=== PATIENT | male | born 1985 | race Caucasian/White ===

== ENCOUNTER 2016-12-23 09:21 | Inpatient (IN) | payer BC, MEDICARE, OTHER ==
[2016-12-23] MEDS ORDERED: SODIUM CHLORIDE 0.9% 1,000 ML IV ONE (10:04)
[2016-12-23] MEDS ORDERED: LEVOFLOXACIN 750MG-D5W PMX 750 MG in DEXTROSE/WATER 1 150ML.BAG IVPB STA (10:04)
[2016-12-23] MEDS ORDERED: SALINE IVPB STA (10:06)
[2016-12-23] MEDS ORDERED: ACETAMINOPHEN IVPB STA (10:06)
[2016-12-23] MEDS ORDERED: IPRATROPIUM-ALBUTEROL 3 ML NEB INHALATION STA (10:07)
[2016-12-23] MEDS ORDERED: IBUPROFEN IV 500 MG in SODIUM CHLORIDE 0.9% 250 ML IV STA (10:09)
--- NOTE | 2016-12-23 10:20 | ED ---
General Adult HPI - General Chief complaint: Fever Stated complaint: fever Time Seen by Provider: 12/23/16 09:25 Source: family, RN notes reviewed Mode of arrival: wheelchair Limitations: language barrier, altered mental status, physical limitation - History of Present Illness Initial comments: This is a 31-year-old male who presents emergency Department with his mother. 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 Patient comes in today because he started spiking a fever on Thursday and since then he developed a cough that sounds very wet according to family. Patient did not have any symptoms on Thursday and when Thursday fever came they thought it was attributable to what the mom calls brain fevers from his injury which occasionally he will get. They have not noticed any rashes patient has not been vomiting or having any diarrhea. They do notice today that he is having some difficulty breathing and breathing very rapidly. Patient is unable to give any history. - Related Data Home Medications Medication Instructions Recorded Confirmed Cholecalciferol [Vitamin D3] 1,000 unit PO DAILY 12/23/16 12/23/16 Divalproex Sprinkle [Depakote 750 mg PO BID-W/MEALS 12/23/16 12/23/16 Sprinkle] LORazepam [Ativan] 1.5 mg PO BID 12/23/16 12/23/16 Topiramate [Topamax] 30 mg PO BID-W/MEALS 12/23/16 12/23/16 Allergies Allergy/AdvReac Type Severity Reaction Status Date / Time No Known Allergies Allergy Verified 12/23/16 10:12 Review of Systems ROS Statement: Those systems with pertinent positive or pertinent negative responses have been documented in the HPI. ROS Other: All systems not noted in ROS Statement are negative. Past Medical History Additional Past Medical History / Comment(s): viral meningitis, physical and mentally impaired, blind History of Any Multi-Drug Resistant Organisms: None Reported Past Surgical History: No Surgical Hx Reported Past Psychological History: No Psychological Hx Reported Smoking Status: Never smoker Past Alcohol Use History: None Reported Past Drug Use History: None Reported General Exam - General Exam Comments Initial Comments: GENERAL: Patient is well-developed and well-nourished. Patient is nontoxic and well- hydrated and is in moderate distress. ENT: Neck is soft and supple. No significant lymphadenopathy is noted. EYES: The sclera were anicteric and conjunctiva were pink and moist. PULMONARY: Patient sounds wet throughout but a lot of this sound appears to be coming from the upper airways. CARDIOVASCULAR: Patient is tachycardic at about 150 beats a minute ABDOMEN: Soft and nontender with normal bowel sounds. SKIN: Skin is clear with no lesions or rashes and otherwise unremarkable. NEUROLOGIC: According to mom he appears at his neurologic baseline which is alert but not oriented at all unable to speak is MUSCULOSKELETAL: No rashes are noted on his extremities there is no erythema or swelling in his extremities. Unable to assess strength or motion of his extremities because he does not follow any commands LYMPHATICS: No significant lymphadenopathy is noted PSYCHIATRIC: Unable to assess secondary to his poor mental status which happens to be at its baseline per mom Limitations: language barrier, altered mental status, physical limitation Course Vital Signs 12/23/16 12/23/16 12/23/16 09:29 10:05 10:47 Temperature 101.5 F H Pulse Rate 156 H 139 H 148 H Respiratory 26 H Rate Blood Pressure 138/62 O2 Sat by Pulse 89 L 97 Oximetry 12/23/16 12/23/16 12/23/16 10:48 10:58 11:32 Temperature Pulse Rate 150 H 150 H 134 H Respiratory 22 28 H Rate Blood Pressure 119/78 85/42 O2 Sat by Pulse 97 Oximetry 12/23/16 12/23/16 12/23/16 11:43 11:50 12:05 Temperature Pulse Rate 132 H 136 H 132 H Respiratory 28 H 28 H Rate Blood Pressure 81/50 104/63 96/53 O2 Sat by Pulse 98 96 99 Oximetry 12/23/16 12/23/16 12/23/16 12:20 12:34 12:35 Temperature 100.4 F H Pulse Rate 132 H 142 H Respiratory Rate Blood Pressure 106/59 82/48 O2 Sat by Pulse 98 Oximetry 12/23/16 12/23/16 12/23/16 13:05 13:20 13:35 Temperature Pulse Rate 124 H 120 H 124 H Respiratory Rate Blood Pressure 80/49 75/40 69/36 O2 Sat by Pulse 95 98 94 L Oximetry 12/23/16 13:40 Temperature Pulse Rate 125 H Respiratory Rate Blood Pressure 80/51 O2 Sat by Pulse Oximetry Procedures - Sepsis Sepsis Focused Exam #1 Sepsis Focused Exam Date: 12/23/16 Sepsis Focused Exam Time: 13:58 Sepsis Focused Exam Complete: Yes Vital Signs & RN Notes Reviewed: Yes Capillary Refill: < 2 Seconds: Fingers Peripheral Pulses: Strong: Radial (R) Skin Color: Flushed Respiratory Exam: rales Cardiovascular Exam: tachycardia Medical Decision Making - Medical Decision Making EKG shows sinus tachycardia at 136 bpm [place] interval is 144 QRS duration 70 QT interval 262 QTC is 394. Patient's EKG shows no ST segment patient present to abnormalities are noted. Patient's lack he has came back 4.7 I gave the patient 2 L of fluid IV patient also had an elevated d-dimer psychotic CAT scan the CAT scan confirmed a upper and lower lobe pneumonia on the left. I started the patient on Levaquin and I gave the patient him a fluid emergency department. Patient will be going to the ICU I spoke with Dr. Koch and I spoke with Feliciano - Lab Data Result diagrams: 12/23/16 10:01 12/23/16 10:01 Lab Results 12/23/16 12/23/16 12/23/16 Range/Units 10:01 10:01 10:01 WBC 7.5 (3.8-10.6) k/uL RBC 4.07 L (4.30-5.90) m/uL Hgb 11.6 L (13.0-17.5) gm/dL Hct 36.9 L (39.0-53.0) % MCV 90.8 (80.0-100.0) fL MCH 28.5 (25.0-35.0) pg MCHC 31.4 (31.0-37.0) g/dL RDW 16.5 H (11.5-15.5) % Plt Count 117 L (150-450) k/uL Neutrophils % (Manual) 48.0 % Band Neutrophils % 19.5 % Lymphocytes % (Manual) 16.0 % Monocytes % (Manual) 14.5 % Metamyelocytes % 2.0 % Neutrophils # (Manual) 5.1 (1.3-7.7) k/uL Lymphocytes # (Manual) 1.2 (1.0-4.8) k/uL Monocytes # (Manual) 1.1 H (0-1.0) k/uL Nucleated RBCs 0 (0-0) /100 WBC Manual Slide Review Performed Toxic Granulation Present Hypochromasia Slight Anisocytosis Slight PT (9.0-12.0) sec INR (<1.1) APTT (22.0-30.0) sec D-Dimer (<0.60) mg/L FEU Sodium 146 H (137-145) mmol/L Potassium 4.1 (3.5-5.1) mmol/L Chloride 106 (98-107) mmol/L Carbon Dioxide 19 L (22-30) mmol/L Anion Gap 21 mmol/L BUN 17 (9-20) mg/dL Creatinine 0.80 (0.66-1.25) mg/dL Est GFR (MDRD) Af Amer >60 (>60 ml/min/1.73 sqM) Est GFR (MDRD) Non-Af >60 (>60 ml/min/1.73 sqM) Glucose 100 H (74-99) mg/dL Plasma Lactic Acid Arian 4.7 H* (0.7-2.0) mmol/L Calcium 9.8 (8.4-10.2) mg/dL Total Bilirubin 0.4 (0.2-1.3) mg/dL AST 91 H (17-59) U/L ALT 34 (21-72) U/L Alkaline Phosphatase 61 (38-126) U/L Total Protein 8.0 (6.3-8.2) g/dL Albumin 4.0 (3.5-5.0) g/dL Urine Color Urine Appearance (Clear) Urine pH (5.0-8.0) Ur Specific Ponderosa (1.001-1.035) Urine Protein (Negative) Urine Glucose (UA) (Negative) Urine Ketones (Negative) Urine Blood (Negative) Urine Nitrite (Negative) Urine Bilirubin (Negative) Urine Urobilinogen (<2.0) mg/dL Ur Leukocyte Esterase (Negative) Urine RBC (0-5) /hpf Urine WBC (0-5) /hpf Urine Mucus (None) /hpf Valproic Acid ug/mL Influenza Type A RNA (Not Detectd) Influenza Type B (PCR) (Not Detectd) 12/23/16 12/23/16 12/23/16 Range/Units 10:01 10:32 10:32 WBC (3.8-10.6) k/uL RBC (4.30-5.90) m/uL Hgb (13.0-17.5) gm/dL Hct (39.0-53.0) % MCV (80.0-100.0) fL MCH (25.0-35.0) pg MCHC (31.0-37.0) g/dL RDW (11.5-15.5) % Plt Count (150-450) k/uL Neutrophils % (Manual) % Band Neutrophils % % Lymphocytes % (Manual) % Monocytes % (Manual) % Metamyelocytes % % Neutrophils # (Manual) (1.3-7.7) k/uL Lymphocytes # (Manual) (1.0-4.8) k/uL Monocytes # (Manual) (0-1.0) k/uL Nucleated RBCs (0-0) /100 WBC Manual Slide Review Toxic Granulation Hypochromasia Anisocytosis PT (9.0-12.0) sec INR (<1.1) APTT (22.0-30.0) sec D-Dimer (<0.60) mg/L FEU Sodium (137-145) mmol/L Potassium (3.5-5.1) mmol/L Chloride (98-107) mmol/L Carbon Dioxide (22-30) mmol/L Anion Gap mmol/L BUN (9-20) mg/dL Creatinine (0.66-1.25) mg/dL Est GFR (MDRD) Af Amer (>60 ml/min/1.73 sqM) Est GFR (MDRD) Non-Af (>60 ml/min/1.73 sqM) Glucose (74-99) mg/dL Plasma Lactic Acid Arian (0.7-2.0) mmol/L Calcium (8.4-10.2) mg/dL Total Bilirubin (0.2-1.3) mg/dL AST (17-59) U/L ALT (21-72) U/L Alkaline Phosphatase (38-126) U/L Total Protein (6.3-8.2) g/dL Albumin (3.5-5.0) g/dL Urine Color Yellow Urine Appearance Clear (Clear) Urine pH 5.5 (5.0-8.0) Ur Specific Ponderosa 1.022 (1.001-1.035) Urine Protein 1+ H (Negative) Urine Glucose (UA) Negative (Negative) Urine Ketones Trace H (Negative) Urine Blood Small H (Negative) Urine Nitrite Negative (Negative) Urine Bilirubin Negative (Negative) Urine Urobilinogen <2.0 (<2.0) mg/dL Ur Leukocyte Esterase Negative (Negative) Urine RBC 1 (0-5) /hpf Urine WBC 3 (0-5) /hpf Urine Mucus Occasional H (None) /hpf Valproic Acid 123.2 H* ug/mL Influenza Type A RNA Detected H (Not Detectd) Influenza Type B (PCR) Not Detected (Not Detectd) 12/23/16 Range/Units 11:24 WBC (3.8-10.6) k/uL RBC (4.30-5.90) m/uL Hgb (13.0-17.5) gm/dL Hct (39.0-53.0) % MCV (80.0-100.0) fL MCH (25.0-35.0) pg MCHC (31.0-37.0) g/dL RDW (11.5-15.5) % Plt Count (150-450) k/uL Neutrophils % (Manual) % Band Neutrophils % % Lymphocytes % (Manual) % Monocytes % (Manual) % Metamyelocytes % % Neutrophils # (Manual) (1.3-7.7) k/uL Lymphocytes # (Manual) (1.0-4.8) k/uL Monocytes # (Manual) (0-1.0) k/uL Nucleated RBCs (0-0) /100 WBC Manual Slide Review Toxic Granulation Hypochromasia Anisocytosis PT 12.0 (9.0-12.0) sec INR 1.2 (<1.1) APTT 22.2 (22.0-30.0) sec D-Dimer 2.68 H (<0.60) mg/L FEU Sodium (137-145) mmol/L Potassium (3.5-5.1) mmol/L Chloride (98-107) mmol/L Carbon Dioxide (22-30) mmol/L Anion Gap mmol/L BUN (9-20) mg/dL Creatinine (0.66-1.25) mg/dL Est GFR (MDRD) Af Amer (>60 ml/min/1.73 sqM) Est GFR (MDRD) Non-Af (>60 ml/min/1.73 sqM) Glucose (74-99) mg/dL Plasma Lactic Acid Arian (0.7-2.0) mmol/L Calcium (8.4-10.2) mg/dL Total Bilirubin (0.2-1.3) mg/dL AST (17-59) U/L ALT (21-72) U/L Alkaline Phosphatase (38-126) U/L Total Protein (6.3-8.2) g/dL Albumin (3.5-5.0) g/dL Urine Color Urine Appearance (Clear) Urine pH (5.0-8.0) Ur Specific Ponderosa (1.001-1.035) Urine Protein (Negative) Urine Glucose (UA) (Negative) Urine Ketones (Negative) Urine Blood (Negative) Urine Nitrite (Negative) Urine Bilirubin (Negative) Urine Urobilinogen (<2.0) mg/dL Ur Leukocyte Esterase (Negative) Urine RBC (0-5) /hpf Urine WBC (0-5) /hpf Urine Mucus (None) /hpf Valproic Acid ug/mL Influenza Type A RNA (Not Detectd) Influenza Type B (PCR) (Not Detectd) Critical Care Time Critical Care Time: Yes Total Critical Care Time: 40 Disposition Clinical Impression: Influenza, Pneumonia, Sepsis Disposition: ADMITTED IP TO THIS HOSP Referrals: Salvatore Felix MD [Primary Care Provider] - 1-2 days Time of Disposition: 13:49
[2016-12-23 10:25] LABS: Anisocytosis Slight; Aty Lym Flag Slight; CH 28.1; CHCM 31.2; HCT 36.9 % (39.0-53.0); HDW 3.13; HGB 11.6 gm/dL (13.0-17.5); Hypochromasia Slight; Immature Gran Flag Marked; MCH 28.5 pg (25.0-35.0); MCHC 31.4 g/dL (31.0-37.0); MCV 90.8 fL (80.0-100.0); Mean Platelet Volume 7.8; RBC 4.07 m/uL (4.30-5.90); RDW 16.5 % (11.5-15.5); WBC 7.5 k/uL (3.8-10.6); WBC (Perox) 7.63
[2016-12-23 10:40] LABS: Add Differential Manual Differential
[2016-12-23 10:43] LABS: ALT 34 U/L (21-72); AST 91 U/L (17-59); Alkaline Phosphatase 61 U/L (38-126); Anion Gap 21 mmol/L; Blood Urea Nitrogen 17 mg/dL (9-20); Calcium 9.8 mg/dL (8.4-10.2); Carbon Dioxide 19 mmol/L (22-30); Chloride 106 mmol/L (98-107); Glucose 100 mg/dL (74-99); Non-African American GFR(MDRD) >60 (>60 ml/min/1.73 sqM); Potassium 4.1 mmol/L (3.5-5.1); Sodium 146 mmol/L (137-145); Total Bilirubin 0.4 mg/dL (0.2-1.3)
[2016-12-23 10:45] LABS: Band Neutrophils % 19.5 %; Manual Review Performed; Nucleated Red Blood Cells 0 /100 WBC (0-0); Total Cells Counted 200
[2016-12-23 10:46] LABS: Toxic Granulation Present
[2016-12-23 10:52] LABS: Appearance,Urine Clear (Clear); Bilirubin,Urine Negative (Negative); Glucose,Urine (UA) Negative (Negative); Ketones,Urine Trace (Negative); Leukocyte Esterase,Urine Negative (Negative); Mucus,Urine Occasional /hpf; Nitrite,Urine Negative (Negative); PH, Urine 5.5 (5.0-8.0); Particle Count 7733; Protein,Urine 1+ (Negative); RBC,Urine 1 /hpf (0-5); Specific Gravity,Urine 1.022 (1.001-1.035); UA Billing (MACRO vs. MICRO) MICRO; Urobilinogen,Urine <2.0 mg/dL (<2.0); WBC,Urine 3 /hpf (0-5)
[2016-12-23] MEDS ORDERED: SODIUM CHLORIDE 0.9% 500 ML IV ONE ×2 (11:35→13:45)
--- NOTE | 2016-12-23 11:35 | XR ---
EXAMINATION TYPE: XR chest 1V DATE OF EXAM: 12/23/2016 11:30 AM COMPARISON: NONE HISTORY: 31-year-old male difficulty breathing TECHNIQUE: Single frontal view of the chest is obtained. FINDINGS: Limited oblique and rotated exam. There is some prominent retrocardiac and left basilar consolidation . Right lung is relatively clear. IMPRESSION: Correlate for retrocardiac and left basilar pneumonia. Follow-up after treatment to reassess.
[2016-12-23] MEDS ORDERED: OSELTAMIVIR 60 MG/10 ML ORAL SYRINGE PO STA (11:39)
[2016-12-23 12:00] LABS: INR 1.2 (<1.1)
[2016-12-23 12:11] LABS: Partial Thromboplastin Time 22.2 sec (22.0-30.0)
[2016-12-23] MEDS ORDERED: RX INFO: IV CONTRAST WAS GIVEN 1 EACH MISC MISCELLANE PRN (12:25)
--- NOTE | 2016-12-23 13:46 | CT ---
EXAMINATION TYPE: CT chest angio for PE DATE OF EXAM: 12/23/2016 1:18 PM COMPARISON: Chest x-ray same day HISTORY: Patient poor historian. Patient special needs and unable to follow directions. Patient mil dly agitated during exam. Patient has cough, chest congestion, fever, and influenza A. CT DLP: 281.3 mGycm Automated exposure control for dose reduction was used. CONTRAST: CT Chest for pulmonary embolism performed with with IV Contrast, patient injected with 100 mL of Omni paque 350. FINDINGS: LUNGS: Large area of consolidation present in the left upper lobe, left lower lobe with air bronchogr ams compatible with pneumonia. No pleural effusion. MEDIASTINUM: For opacification of the central pulmonary arteries to scanning technique. No evident me diastinal, hilar, or axillary adenopathy AORTA: No additional significant abnormality is seen. OTHER: Pulmonary artery is mildly prominent, correlate for possible pulmonary artery hypertension. L iver shows low attenuation likely due to fatty infiltration. There is a scoliosis. IMPRESSION: Findings compatible with plain film, left upper lobe, left lower lobe pneumonia. Additional findings above.
[2016-12-23] MEDS ORDERED: PIPERACILLIN-TAZOBACTAM 3.375 GM in DEXTROSE/WATER 1 50ML.BAG IVPB STA (13:53)
[2016-12-23] MEDS ORDERED: NALOXONE 0.4 MG/ML 1 ML VIAL IV PRN (13:53)
[2016-12-23] MEDS ORDERED: HYDROCORTISONE SUCCINATE 100 MG/2 ML VIAL IV STA (13:55)
[2016-12-23 15:02] LABS: Glucose,Whole Blood 168 mg/dL (75-99)
[2016-12-23] MEDS ORDERED: IPRATROPIUM-ALBUTEROL 3 ML NEB INHALATION PRN (16:27)
[2016-12-23] MEDS: SODIUM CHLORIDE 0.9% 1,000 ML IV SCH ×2 (18:58→21:38)
[2016-12-23] MEDS: LORazepam 0.5 MG TAB PO SCH ×2 (18:58→19:35)
[2016-12-23] MEDS: DIVALPROEX SPRINKLE 125 MG CAP.SPRINK PO SCH ×2 (18:58→19:35)
[2016-12-23] MEDS: IPRATROPIUM-ALBUTEROL 3 ML NEB INHALATION SCH (19:52)
--- NOTE | 2016-12-23 20:25 | P.CNPUL ---
History of Present Illness Consult date: 12/23/16 Requesting physician: Karla Posada Reason for consult: pneumonia Chief complaint: shortness of breath and fever History of present illness: this is a 31-year-old white male who is mentally challenged since he was 7 months old related to previous episode of meningitis. Patient apparently sustained significant brain injury from his meningitis while he was an infant. Patient was brought in by his mother today with a few days history of fever cough and shortness of breath. In the ER, the patient was noted to have significant pneumonia involving the left lung, patient had elevated lactic acid , hypotension requiring fluid boluses, but did not require pressors. CODE STATUS was discussed with the family, apparently the patient is DO NOT RESUSCITATE according to his family's wishes. This was later confirmed by me when I discussed the same issue with his mother at bedside in the intensive care unit. Patient was placed on Zosyn and Levaquin. He was given 2 L of fluid boluses in the ER, and he was transferred to the intensive care unit on a non-rebreather mask. O2 saturation was marginal. However the patient was hemodynamically stable in the ICU upon arrival. Patient was placed on the sepsis protocol, and placed on antibiotics in the form of Levaquin and Zosyn, GI and DVT prophylaxis. Mother does not want the patient to be placed on life support and does not want him to be placed on pressors if his blood pressure is to drop. 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 History of Any Multi-Drug Resistant Organisms: None Reported Past Surgical History: No Surgical Hx Reported Additional Past Anesthesia/Blood Transfusion Reaction / Comment(s): Pt has never had surgery. Past Psychological History: No Psychological Hx Reported Additional Psychological History / Comment(s): Pt has severely mentally delayed 2ndary to viral meningitis at the age of 7 weeks causing brain injury. Pt is wheel chair bound. He is nonverbal. He cannot perform his own ADLs. He can hold a sippy cup to drink. He is on soft table food. Pt moved into a half-way about 3 weeks ago. Prior to that he lived with his parents. Smoking Status: Never smoker Past Alcohol Use History: None Reported Past Drug Use History: None Reported - Past Family History Mother Family Medical History: No Reported History Father Additional Family Medical History / Comment(s): Father has some joint problems and has had bilateral hip and knee replacements. Medications and Allergies Home Medications Medication Instructions Recorded Confirmed Type Cholecalciferol [Vitamin D3] 1,000 unit PO DAILY 12/23/16 12/23/16 History Divalproex Sprinkle [Depakote 750 mg PO BID-W/MEALS 12/23/16 12/23/16 History Sprinkle] LORazepam [Ativan] 1.5 mg PO BID 12/23/16 12/23/16 History Topiramate [Topamax] 30 mg PO BID-W/MEALS 12/23/16 12/23/16 History Allergies Allergy/AdvReac Type Severity Reaction Status Date / Time No Known Allergies Allergy Verified 12/23/16 10:12 Physical Exam Vitals: Vital Signs Temp Pulse Resp BP Pulse Ox 12/23/16 20:07 130 H 12/23/16 19:52 130 H 12/23/16 19:30 119 H 30 H 103/55 92 L 12/23/16 19:15 135 H 33 H 111/52 92 L 12/23/16 19:00 132 H 36 H 113/56 92 L 12/23/16 18:45 125 H 30 H 107/55 92 L 12/23/16 18:30 137 H 32 H 111/67 92 L 12/23/16 18:15 134 H 33 H 112/56 90 L 12/23/16 18:00 128 H 26 H 110/57 91 L 12/23/16 17:45 125 H 27 H 97/49 12/23/16 17:30 122 H 24 96/50 92 L 12/23/16 17:15 128 H 29 H 102/48 90 L 12/23/16 17:00 134 H 28 H 102/48 93 L 12/23/16 16:45 134 H 21 117/58 94 L 12/23/16 16:30 130 H 21 112/55 94 L 12/23/16 16:15 135 H 21 123/79 97 12/23/16 16:00 142 H 32 H 134/90 98 12/23/16 15:45 140 H 34 H 105/47 98 12/23/16 15:30 125 H 21 105/47 99 12/23/16 15:15 126 H 29 H 97/50 97 12/23/16 15:00 125 H 28 H 97/50 96 12/23/16 14:48 128 H 12/23/16 14:37 98.5 F 128 H 24 91/44 94 L 12/23/16 14:11 130 H 24 102/43 94 L Intake and Output 12/23/16 12/23/16 12/23/16 06:59 14:59 22:59 Intake Total 575.0 Output Total 1000 Balance -425.0 Intake: IV 175.0 0.9 150 Piperacillin-Tazobactam 3 25.0 .375 gm In Dextrose/Water 1 50ml.bag @ 12.5 mls/hr IVPB Q8HR [facility] Rx#: [id number] Intake, IV Titration 400 Amount Sodium Chloride 0.9% 1, 400 000 ml @ 125 mls/hr IV . Q8H [facility] Rx#:[id number] Output: Urine 1000 Other: Voiding Method Incontinent HEENT: No neck masses no JVD no thyromegaly, patient is on a nonrebreather mask. Chest: Diminished breath sounds on the left side with crackles at the left base. Right side is relatively clear. Cardiac: Slightly tachycardic, no S3 gallop, no murmur was appreciated. Abdomen: Soft nontender thyromegaly no rebound Extremities: No clubbing edema or cyanosis. Neurologic: Patient opens eyes, does not respond to any verbal stimuli. Noted to be generally weak. Results - Laboratory Findings CBC and BMP: 12/23/16 10:01 12/23/16 10:01 PT/INR, D-dimer PT 12.0 sec (9.0-12.0) 12/23/16 11:24 INR 1.2 (<1.1) 12/23/16 11:24 D-Dimer 2.68 mg/L FEU (<0.60) H 12/23/16 11:24 Abnormal lab findings: Abnormal Labs 12/23/16 12/23/16 12/23/16 14:20 14:58 18:27 POC Glucose (mg/dL) 168 H Plasma Lactic Acid Arian 3.1 H* 3.1 H* - Diagnostic Findings CT scan - chest: image reviewed ( Significantdisease involving the left lung. With air bronchogram consistent with pneumonia.) Assessment and Plan Plan: Impression: 1 acute extensive left sided pneumonia and sepsis. The pneumonia is community- acquired, however possibility of aspiration is not entirely ruled out what sounds to be less likely. 2 acute influenza infection, complicated by extensive pneumonia. 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 4 history of seizure disorder related to previous brain injury and meningitis. Recommendation: Patient will be treated with antibiotics in the form of Levaquin and Zosyn, Tamiflu was added for his influenza infection as noted During screening in the emergency room GI and DVT prophylaxis will be given. Mother's wishes regarding CODE STATUS will be respected patient is not to be intubated and not to be placed on pressors, and his condition gets any worse may have to consider comfort care measures. This will be addressed depending on the clinical status. Overall prognosis is definitely poor and guarded. We will continue to follow Time with Patient: Greater than 30
[2016-12-23] MEDS ORDERED: LORazepam 0.5 MG TAB PO SCH (21:00)
[2016-12-23] MEDS: LORazepam 2 MG/ML SYRINGE IV SCH (21:38)
[2016-12-24] MEDS: OSELTAMIVIR 60 MG/10 ML ORAL SYRINGE PO SCH ×4 (00:04→22:12)
[2016-12-24] MEDS: PIPERACILLIN-TAZOBACTAM 3.375 GM in DEXTROSE/WATER 1 50ML.BAG IVPB SCH ×4 (00:14→23:52)
[2016-12-24 05:10] LABS: Anion Gap 12 mmol/L; Blood Urea Nitrogen 7 mg/dL (9-20); Calcium 8.7 mg/dL (8.4-10.2); Carbon Dioxide 18 mmol/L (22-30); Chloride 113 mmol/L (98-107); Glucose 94 mg/dL (74-99); Magnesium 1.6 mg/dL (1.6-2.3); Non-African American GFR(MDRD) >60 (>60 ml/min/1.73 sqM); Phosphorous 2.8 mg/dL (2.5-4.5); Potassium 3.6 mmol/L (3.5-5.1); Sodium 143 mmol/L (137-145)
[2016-12-24] MEDS: SODIUM CHLORIDE 0.9% 1,000 ML IV SCH ×2 (05:34→18:27)
[2016-12-24] MEDS: ACETAMINOPHEN IV (For NPO) 1,000 MG in EMPTY BAG 1 BAG IVPB PRN ×2 (06:34→19:10)
[2016-12-24 06:51] LABS: Anisocytosis Slight; CH 27.8; CHCM 31.2; HCT 27.2 % (39.0-53.0); HDW 3.54; HGB 8.7 gm/dL (13.0-17.5); Hypochromasia Moderate; Immature Gran Flag Marked; Large Platelets Flag Moderate; MCH 28.8 pg (25.0-35.0); Mean Platelet Volume 10.9; Poikilocytosis Slight; RBC 3.02 m/uL (4.30-5.90); RDW 16.9 % (11.5-15.5); WBC (Perox) 1.62
[2016-12-24 07:11] LABS: WBC 1.4 k/uL (3.8-10.6)
--- NOTE | 2016-12-24 07:17 | XR ---
EXAMINATION TYPE: XR chest 1V DATE OF EXAM: 12/24/2016 6:56 AM COMPARISON: Prior chest x-ray 23 December 2016 HISTORY: Pneumonia TECHNIQUE: Single frontal view of the chest is obtained. FINDINGS: Airspace disease persists on the left. Some patchy density also present at the right lung base. No evident pneumothorax or sizable effusion. There is a scoliosis. There are overlying cardiac leads, patient is rotated. IMPRESSION: Findings may represent a trilobar pneumonia
[2016-12-24] MEDS ORDERED: SODIUM CHLORIDE 0.9% 500 ML IV ONE ×2 (07:21→19:56)
[2016-12-24] MEDS: LORazepam 2 MG/ML SYRINGE IV SCH ×2 (08:04→20:29)
[2016-12-24] MEDS: MAGNESIUM SULFATE-D5W PMX 1 GM in DEXTROSE/WATER 1 100ML.BAG IVPB SCH ×2 (08:11→10:21)
[2016-12-24] MEDS: POTASSIUM CHLORIDE 10 MEQ, LIDOCAINE 2% INJ 10 MG in SODIUM CHLORIDE 0.9% 100 ML IV SCH ×2 (08:19→10:20)
[2016-12-24] MEDS: ENOXAPARIN 40 MG/0.4 ML SYRINGE SQ SCH (08:22)
[2016-12-24] MEDS: PANTOPRAZOLE 40 MG/10 ML VIAL IV SCH (08:36)
--- NOTE | 2016-12-24 08:50 | HP ---
DATE OF ADMISSION: 12/23/2016 CHIEF COMPLAINT: Short of breath and fever. HISTORY OF PRESENT ILLNESS: Mr. Sánchez is a 31-year-old male with a known history of viral meningitis at the age of 7 weeks and brain injury and mentally challenged since then and also history of seizure disorder, was brought to the hospital by his father with complaints of fever and cough and short of breath. Patient apparently has been taking care of by his parents until 6 weeks ago, when he was sent to an assisted living facility and patient apparently has been having a cough and short of breath, which is worsening for the past two days and was brought to the hospital. Patient could not provide any history due to underlying mental status. Most of the history was taken from his father at bedside now. Patient also had no fever. No nausea, no vomiting. No diarrhea. The patient otherwise is not complaining of any pain at baseline. Patient cannot recognize any of his family members. Patient was initially found to have hypotensive, tachycardic, tachypneic and elevated lactic acid on admission. Chest x-ray showed left upper and lower lobe pneumonia and his influenza swab came back positive for Type A. Otherwise, patient currently is saturating well on 100% nonrebreather and the patient was placed on broad spectrum antibiotics in the form of levofloxacin, Zosyn as well as Tamiflu. Patient also being continued on anti( ) medications which he has been taking at home. COD STATUS Is DO NOT RESUSCITATE/DNI as per family agreement. Complete review of systems could not be obtained from the patient. Past medical history is seizure disorder, viral meningitis at the age of 7 weeks with brain injury, mentally challenged. History of pneumonia. The patient is wheelchair bound and nonverbal. Last seizure episode about 10 years ago. No surgical history. PSYCHOSOCIAL HISTORY: The patient is severely mentally delayed. SOCIAL HISTORY: Patient never a smoker. No alcohol, drugs or IVDU. FAMILY HISTORY: No history of hypertension, diabetes mellitus, father had some joint problems. Home medications. 1. Vitamin D3. 2. Depakote. 3. Ativan. 4. Topamax. ALLERGIES: No known drug allergies. PHYSICAL EXAMINATION: A 31-year-old male lying in the bed. The patient is nonverbal, currently in mild distress due to short of breath and currently on 100% nonrebreather. VITALS: Blood pressure is 102/48, pulse 128, respiration 29, temperature 100.4 on admission, pulse ox is 94% on 100% nonrebreather. HEENT: Atraumatic, normocephalic. Neck is supple. No JVD. LUNGS: Bilateral air entry is present. Diminished breath sounds left basilar crackles positive on the base. Right side showed no wheezing. No crackles. CVS: S1, S2 heard. The patient is tachycardic. No murmurs appreciated. ABDOMEN: Soft, nontender. Bowel sounds are present. INSIDE SALES MANAGER: Patient is awake, opens his eyes, does not respond verbally. EXTREMITIES: No edema. Pulses palpable bilaterally. PSYCHIATRIC: Could not be assessed completely. LABORATORY DATA: WBC 7.5, hemoglobin 11.6, platelets 117, d-dimer 12.68. INR 1.2. Sodium 146, potassium 4.1, chloride 106, bicarb is 19, BUN 17, creatinine 0.8. Lactic acid level is 4.7. AST is 91. ALT 34 years. UA clear and trace ketones. His Valproic acid level is 123.2. Influenza type A positive. Chest x-ray ( ) for retrocardiac and left basilar pneumonia. CT angiogram showed no evidence of pulmonary embolism. IMPRESSION: 1. Sepsis secondary to left-sided pneumonia. 2. Acute influenza type A infection. 3. Severe lactic acidosis. 4. History of viral meningitis at age 7 weeks and brain injury and mentally challenged since then. 5. History of seizure disorder, last seizure about 10 years ago. 6. Acute hypoxic respiratory failure secondary to pneumonia on admission. Currently on 100% nonrebreather. DISCUSSION AND PLAN: Patient will be continued on aggressive hydration. Continue the Tamiflu. Continue with antibiotics in the form of Zosyn and levofloxacin and the patient is currently being monitored in ICU. Will continue with the antiepileptic medications as per home dose. Will continue the gastrointestinal and deep venous thrombosis prophylaxis and continue the breathing treatments and follow up closely. Further recommendations based on the clinical course. CODE STATUS is DNR/DNI which has been changed upon discussion with family.
[2016-12-24] MEDS: IPRATROPIUM-ALBUTEROL 3 ML NEB INHALATION SCH ×4 (09:48→19:21)
--- NOTE | 2016-12-24 10:38 | XR ---
EXAMINATION TYPE: XR chest 1V DATE OF EXAM: 12/24/2016 10:25 AM COMPARISON: Prior chest x-ray same date earlier time HISTORY: Status post NG tube placement TECHNIQUE: Single frontal view of the chest is obtained. FINDINGS: There is been interval placement of an NG tube, distal tip is coiling into the left upper quadrant. IMPRESSION: No evident complication status post NG tube placement. No other interval change.
[2016-12-24 10:42] LABS: Manual Review Performed
[2016-12-24 10:43] LABS: Add Differential Manual Differential
[2016-12-24 10:56] LABS: Band Neutrophils % 20.5 %; Metamyelocytes % 13.5 %; Nucleated Red Blood Cells 0 /100 WBC (0-0); Total Cells Counted 200
[2016-12-24 10:57] LABS: Toxic Granulation Present; Toxic Vacuolation Present
[2016-12-24] MEDS: DIVALPROEX SPRINKLE 125 MG CAP.SPRINK PO SCH ×2 (11:37→18:26)
[2016-12-24] MEDS: TOPIRAMATE 15 MG PO SCH ×3 (11:38→18:26)
[2016-12-24] MEDS: CHOLECALCIFEROL 1,000 UNIT TAB PO SCH (11:50)
[2016-12-24] MEDS ORDERED: IV VANCOMYCIN PER PHARMACY 1 EACH MISC MISCELLANE PRN (12:37)
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
[2016-12-24] MEDS: LEVOFLOXACIN 750MG-D5W PMX 750 MG in DEXTROSE/WATER 1 150ML.BAG IVPB SCH (12:50)
[2016-12-24] MEDS: VANCOMYCIN 1,000 MG in SODIUM CHLORIDE 0.9% 250 ML IVPB SCH ×2 (14:34→22:12)
[2016-12-25] MEDS: SODIUM CHLORIDE 0.9% 1,000 ML IV SCH ×3 (02:15→20:25)
[2016-12-25 05:14] LABS: Anisocytosis Slight; CH 27.5; CHCM 29.9; HCT 27.5 % (39.0-53.0); HDW 3.85; HGB 8.5 gm/dL (13.0-17.5); Hypochromasia Marked; Immature Gran Flag Marked; Large Platelets Flag Slight; MCH 28.8 pg (25.0-35.0); Mean Platelet Volume 11.6; Poikilocytosis Slight; RBC 2.96 m/uL (4.30-5.90); RDW 17.4 % (11.5-15.5); WBC 4.2 k/uL (3.8-10.6); WBC (Perox) 4.93
[2016-12-25 06:04] LABS: Add Differential Manual Differential
[2016-12-25 06:09] LABS: Manual Review Performed; Nucleated Red Blood Cells 0 /100 WBC (0-0); Total Cells Counted 200
[2016-12-25 06:26] LABS: Anion Gap 8 mmol/L; Blood Urea Nitrogen 10 mg/dL (9-20); Calcium 8.2 mg/dL (8.4-10.2); Carbon Dioxide 18 mmol/L (22-30); Chloride 117 mmol/L (98-107); Glucose 93 mg/dL (74-99); Magnesium 2.1 mg/dL (1.6-2.3); Non-African American GFR(MDRD) >60 (>60 ml/min/1.73 sqM); Phosphorous 1.8 mg/dL (2.5-4.5); Potassium 3.4 mmol/L (3.5-5.1); Sodium 143 mmol/L (137-145)
[2016-12-25] MEDS: VANCOMYCIN 1,000 MG in SODIUM CHLORIDE 0.9% 250 ML IVPB SCH ×3 (07:00→21:27)
[2016-12-25] MEDS: IPRATROPIUM-ALBUTEROL 3 ML NEB INHALATION SCH ×4 (07:40→19:21)
--- NOTE | 2016-12-25 07:50 | XR ---
EXAMINATION TYPE: XR chest 1V DATE OF EXAM: 12/25/2016 6:53 AM CLINICAL HISTORY: Difficulty breathing progress study. TECHNIQUE: Single AP portable upright view of the chest is obtained. COMPARISON: Chest x-ray from one day earlier FINDINGS: An orogastric tube is stable in appearance. There is worsening left lung consolidation wit h air bronchograms with relative sparing of left lung apex. Silhouetting of left heart border and hem idiaphragm is present, former is new. Right lung remains clear. Cardiac silhouette size is stable and upper limits of normal. Underlying scoliosis is felt present. IMPRESSION: Worsening diffuse left lung infiltrate with some sparing of left lung apex redemonstrated
[2016-12-25] MEDS: POTASSIUM CHLORIDE ORAL LIQUID 40 MEQ/30 ML CUP NG-TUBE SCH ×2 (08:30→10:15)
[2016-12-25] MEDS: TOPIRAMATE 15 MG PO SCH ×2 (08:30→20:26)
[2016-12-25] MEDS: SODIUM PHOSPHATE 10 MMOL in SODIUM CHLORIDE 0.9% 250 ML IVPB SCH ×2 (08:31→11:39)
[2016-12-25] MEDS: ENOXAPARIN 40 MG/0.4 ML SYRINGE SQ SCH (08:31)
[2016-12-25] MEDS: PANTOPRAZOLE 40 MG/10 ML VIAL IV SCH (08:32)
[2016-12-25] MEDS: DIVALPROEX SPRINKLE 125 MG CAP.SPRINK PO SCH ×2 (08:32→20:25)
[2016-12-25] MEDS: PIPERACILLIN-TAZOBACTAM 3.375 GM in DEXTROSE/WATER 1 50ML.BAG IVPB SCH ×2 (08:39→15:27)
[2016-12-25] MEDS: LORazepam 2 MG/ML SYRINGE IV SCH ×2 (08:41→20:31)
[2016-12-25] MEDS: OSELTAMIVIR 60 MG/10 ML ORAL SYRINGE PO SCH ×2 (09:12→21:23)
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
[2016-12-25] MEDS: ACETAMINOPHEN IV (For NPO) 1,000 MG in EMPTY BAG 1 BAG IVPB SCH ×3 (10:48→23:24)
[2016-12-25] MEDS: LEVOFLOXACIN 750MG-D5W PMX 750 MG in DEXTROSE/WATER 1 150ML.BAG IVPB SCH (12:33)
[2016-12-25] MEDS: CHOLECALCIFEROL 1,000 UNIT TAB PO SCH (12:34)
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
[2016-12-25] MEDS ORDERED: VANCOMYCIN TROUGH DUE 1 EACH MISC MISCELLANE ONE (13:30)
[2016-12-26] MEDS: SODIUM CHLORIDE 0.9% 1,000 ML IV SCH ×3 (01:07→17:32)
[2016-12-26] MEDS: PIPERACILLIN-TAZOBACTAM 3.375 GM in DEXTROSE/WATER 1 50ML.BAG IVPB SCH ×3 (01:07→17:35)
[2016-12-26 05:25] LABS: Anisocytosis Slight; Basophils % (A) 0 %; CH 27.6; CHCM 30.1; Eosinophils % (A) 0 %; HCT 29.3 % (39.0-53.0); HDW 3.52; HGB 9.1 gm/dL (13.0-17.5); Hypochromasia Marked; Luc % (Auto) 1; Lymphocytes # (A) 0.9 k/uL (1.0-4.8); Lymphocytes % (A) 13 %; MCH 28.9 pg (25.0-35.0); MCHC 31.1 g/dL (31.0-37.0); MCV 92.8 fL (80.0-100.0); Mean Platelet Volume 8.1; Monocytes # (A) 0.3 k/uL (0-1.0); Monocytes % (A) 4 %; Neutrophils % (A) 82 %; Poikilocytosis Slight; RBC 3.16 m/uL (4.30-5.90); RDW 17.1 % (11.5-15.5); WBC 7.4 k/uL (3.8-10.6); WBC (Perox) 7.83
[2016-12-26 05:37] LABS: Anion Gap 6 mmol/L; Blood Urea Nitrogen 7 mg/dL (9-20); Calcium 8.7 mg/dL (8.4-10.2); Carbon Dioxide 20 mmol/L (22-30); Chloride 113 mmol/L (98-107); Glucose 96 mg/dL (74-99); Non-African American GFR(MDRD) >60 (>60 ml/min/1.73 sqM); Phosphorous 3.4 mg/dL (2.5-4.5); Potassium 3.6 mmol/L (3.5-5.1); Sodium 139 mmol/L (137-145)
[2016-12-26] MEDS: ACETAMINOPHEN IV (For NPO) 1,000 MG in EMPTY BAG 1 BAG IVPB SCH (06:33)
[2016-12-26] MEDS: VANCOMYCIN 1,000 MG in SODIUM CHLORIDE 0.9% 250 ML IVPB SCH ×3 (06:36→21:37)
[2016-12-26] MEDS: IPRATROPIUM-ALBUTEROL 3 ML NEB INHALATION SCH ×4 (07:29→19:24)
--- NOTE | 2016-12-26 08:11 | XR ---
EXAMINATION TYPE: XR chest 1V DATE OF EXAM: 12/26/2016 6:25 AM CLINICAL HISTORY: Difficulty breathing progress study. TECHNIQUE: Single AP portable semiupright view of the chest is obtained. COMPARISON: Chest x-ray from one day earlier FINDINGS: Orogastric tube is stable in appearance. There is persistent left lung opacity consistent with infiltrate silhouetting left hemidiaphragm and portions of left heart border with relative spari ng of left lung apex. Some patchy right medial basilar opacity is now felt present. Right lung is sli ghtly hyperexpanded. Cardiac silhouette size is stable and within normal limits. Osseous structures a re intact. Underlying scoliosis in the lumbar spine is redemonstrated. IMPRESSION: Persistent diffuse left lung infiltrate with sparing of left lung apex, possible left-vianca ed volume loss. Developing right medial basilar atelectasis and/or infiltrate is noted.
[2016-12-26] MEDS: DIVALPROEX SPRINKLE 125 MG CAP.SPRINK PO SCH ×2 (10:02→17:33)
[2016-12-26] MEDS: PANTOPRAZOLE 40 MG/10 ML VIAL IV SCH (10:03)
[2016-12-26] MEDS: ENOXAPARIN 40 MG/0.4 ML SYRINGE SQ SCH (10:03)
[2016-12-26] MEDS: POTASSIUM CHLORIDE 10 MEQ, LIDOCAINE 2% INJ 10 MG in SODIUM CHLORIDE 0.9% 100 ML IV SCH ×2 (10:04→12:18)
[2016-12-26] MEDS: TOPIRAMATE 15 MG PO SCH ×2 (10:06→17:33)
[2016-12-26] MEDS: LORazepam 2 MG/ML SYRINGE IV SCH ×2 (10:12→20:08)
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
[2016-12-26] MEDS: OSELTAMIVIR 60 MG/10 ML ORAL SYRINGE PO SCH ×2 (12:20→20:41)
[2016-12-26] MEDS: CHOLECALCIFEROL 1,000 UNIT TAB PO SCH (12:29)
[2016-12-26] MEDS: LEVOFLOXACIN 750MG-D5W PMX 750 MG in DEXTROSE/WATER 1 150ML.BAG IVPB SCH (12:29)
[2016-12-27] MEDS: PIPERACILLIN-TAZOBACTAM 3.375 GM in DEXTROSE/WATER 1 50ML.BAG IVPB SCH ×3 (00:30→17:51)
[2016-12-27] MEDS: SODIUM CHLORIDE 0.9% 1,000 ML IV SCH ×3 (00:30→16:37)
[2016-12-27 05:14] LABS: Anisocytosis Slight; Basophils % (A) 0 %; CH 27.9; CHCM 31.7; Eosinophils % (A) 0 %; HCT 26.4 % (39.0-53.0); HDW 3.45; HGB 8.5 gm/dL (13.0-17.5); Hypochromasia Slight; Luc # (Auto) 0.11; Luc % (Auto) 2; Lymphocytes % (A) 15 %; MCH 28.6 pg (25.0-35.0); MCHC 32.2 g/dL (31.0-37.0); MCV 88.9 fL (80.0-100.0); Mean Platelet Volume 8.1; Monocytes # (A) 0.5 k/uL (0-1.0); Monocytes % (A) 6 %; Neutrophils # (A) 5.4 k/uL (1.3-7.7); Neutrophils % (A) 77 %; Poikilocytosis Slight; RBC 2.97 m/uL (4.30-5.90); RDW 17.1 % (11.5-15.5); WBC (Perox) 7.54
[2016-12-27 05:31] LABS: Anion Gap 11 mmol/L; Blood Urea Nitrogen 7 mg/dL (9-20); Calcium 8.1 mg/dL (8.4-10.2); Carbon Dioxide 22 mmol/L (22-30); Chloride 108 mmol/L (98-107); Glucose 130 mg/dL (74-99); Magnesium 2.1 mg/dL (1.6-2.3); Non-African American GFR(MDRD) >60 (>60 ml/min/1.73 sqM); Phosphorous 3.6 mg/dL (2.5-4.5); Potassium 3.4 mmol/L (3.5-5.1); Sodium 141 mmol/L (137-145)
[2016-12-27] MEDS: ACETAMINOPHEN SUPPOSITORY 650 MG SUPP RECTAL PRN (05:36)
[2016-12-27] MEDS: VANCOMYCIN 1,250 MG in SODIUM CHLORIDE 0.9% 250 ML IVPB SCH ×3 (05:37→21:07)
[2016-12-27] MEDS: POTASSIUM CHLORIDE ORAL LIQUID 40 MEQ/30 ML CUP NG-TUBE SCH ×2 (06:19→08:58)
--- NOTE | 2016-12-27 07:45 | XR ---
EXAMINATION TYPE: XR chest 1V DATE OF EXAM: 12/27/2016 6:34 AM HISTORY: pneumonia. REFERENCE: Previous study dated 12/26/2016. FINDINGS: There is a left lower lobe infiltrate. This is unchanged from previous. The right lung is c lear. Heart size is within normal limits. An NG tube is in place. Its tip is in the stomach. IMPRESSION: CONTINUING LEFT LOWER LOBE PNEUMONIA.
[2016-12-27] MEDS: IPRATROPIUM-ALBUTEROL 3 ML NEB INHALATION SCH ×4 (08:30→20:52)
[2016-12-27] MEDS: ENOXAPARIN 40 MG/0.4 ML SYRINGE SQ SCH (08:59)
[2016-12-27] MEDS: DIVALPROEX SPRINKLE 125 MG CAP.SPRINK PO SCH ×2 (08:59→16:37)
[2016-12-27] MEDS: OSELTAMIVIR 60 MG/10 ML ORAL SYRINGE PO SCH ×2 (08:59→21:06)
[2016-12-27] MEDS: PANTOPRAZOLE 40 MG/10 ML VIAL IV SCH (08:59)
[2016-12-27] MEDS: TOPIRAMATE 15 MG PO SCH ×2 (09:01→16:38)
[2016-12-27] MEDS: LORazepam 2 MG/ML SYRINGE IV SCH ×2 (09:04→21:06)
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
[2016-12-27] MEDS: LEVOFLOXACIN 750MG-D5W PMX 750 MG in DEXTROSE/WATER 1 150ML.BAG IVPB SCH (12:15)
[2016-12-27] MEDS: CHOLECALCIFEROL 1,000 UNIT TAB PO SCH (12:16)
[2016-12-27] MEDS ORDERED: ACETAMINOPHEN IV (For NPO) 1,000 MG in EMPTY BAG 1 BAG IVPB PRN (19:36)
[2016-12-28] MEDS: PIPERACILLIN-TAZOBACTAM 3.375 GM in DEXTROSE/WATER 1 50ML.BAG IVPB SCH ×3 (00:11→16:32)
[2016-12-28] MEDS: SODIUM CHLORIDE 0.9% 1,000 ML IV SCH ×3 (00:11→16:41)
[2016-12-28] MEDS ORDERED: VANCOMYCIN TROUGH DUE 1 EACH MISC MISCELLANE ONE (05:00)
[2016-12-28 06:18] LABS: Anion Gap 11 mmol/L; Blood Urea Nitrogen 9 mg/dL (9-20); Calcium 8.5 mg/dL (8.4-10.2); Carbon Dioxide 21 mmol/L (22-30); Chloride 110 mmol/L (98-107); Glucose 123 mg/dL (74-99); Magnesium 2.3 mg/dL (1.6-2.3); Non-African American GFR(MDRD) >60 (>60 ml/min/1.73 sqM); Phosphorous 3.9 mg/dL (2.5-4.5); Potassium 5.8 mmol/L (3.5-5.1); Sodium 142 mmol/L (137-145)
[2016-12-28] MEDS: VANCOMYCIN 1,250 MG in SODIUM CHLORIDE 0.9% 250 ML IVPB SCH ×2 (07:15→15:22)
[2016-12-28 07:47] LABS: Anisocytosis Slight; CH 27.7; HCT 26.3 % (39.0-53.0); HDW 3.23; HGB 8.7 gm/dL (13.0-17.5); Immature Gran Flag Marked; MCH 28.8 pg (25.0-35.0); MCHC 32.9 g/dL (31.0-37.0); MCV 87.3 fL (80.0-100.0); RBC 3.01 m/uL (4.30-5.90); WBC (Perox) 9.97
--- NOTE | 2016-12-28 08:13 | XR ---
EXAMINATION TYPE: XR chest 1V DATE OF EXAM: 12/28/2016 6:29 AM COMPARISON: Yesterday HISTORY: Pneumonia TECHNIQUE: Single frontal view of the chest is obtained. FINDINGS: There is blunting of costophrenic angles. There is patchy consolidation in the left lower lobe. There is a nasogastric tube. There are chest leads. IMPRESSION: There is evidence of congestive heart failure that is the same or worse than yesterday. There is improvement in the left lower lobe pneumonia compared to yesterday. I would also consider RD S in this relatively young patient.
[2016-12-28 08:50] LABS: Add Differential Manual Differential
[2016-12-28 08:54] LABS: Band Neutrophils % 9.5 %; Myelocytes % 4.5 %; Nucleated Red Blood Cells 2 /100 WBC (0-0); Total Cells Counted 200
[2016-12-28 08:55] LABS: Manual Review Performed; Toxic Granulation Present
[2016-12-28] MEDS: ENOXAPARIN 40 MG/0.4 ML SYRINGE SQ SCH (09:17)
[2016-12-28] MEDS: LORazepam 2 MG/ML SYRINGE IV SCH ×2 (09:18→20:30)
[2016-12-28] MEDS: DIVALPROEX SPRINKLE 125 MG CAP.SPRINK PO SCH ×2 (09:18→16:32)
[2016-12-28] MEDS: TOPIRAMATE 15 MG PO SCH ×2 (09:18→16:32)
[2016-12-28] MEDS: PANTOPRAZOLE 40 MG/10 ML VIAL IV SCH (09:19)
[2016-12-28] MEDS: IPRATROPIUM-ALBUTEROL 3 ML NEB INHALATION SCH ×4 (10:42→21:18)
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
[2016-12-28] MEDS: CHOLECALCIFEROL 1,000 UNIT TAB PO SCH (12:04)
[2016-12-28] MEDS: LEVOFLOXACIN 750MG-D5W PMX 750 MG in DEXTROSE/WATER 1 150ML.BAG IVPB SCH (12:04)
[2016-12-28] MEDS: ACETAMINOPHEN IV (For NPO) 1,000 MG in EMPTY BAG 1 BAG IVPB PRN (17:32)
[2016-12-28] MEDS: VANCOMYCIN 1,500 MG in SODIUM CHLORIDE 0.9% 250 ML IVPB SCH (21:07)
[2016-12-29] MEDS: SODIUM CHLORIDE 0.9% 1,000 ML IV SCH ×3 (00:30→17:03)
[2016-12-29] MEDS: PIPERACILLIN-TAZOBACTAM 3.375 GM in DEXTROSE/WATER 1 50ML.BAG IVPB SCH ×4 (01:40→23:55)
[2016-12-29 04:45] LABS: Anisocytosis Slight; Basophils # (A) 0.1 k/uL (0-0.2); Basophils % (A) 1 %; CH 27.4; CHCM 31.6; Eosinophils # (A) 0.1 k/uL (0-0.7); Eosinophils % (A) 0 %; HCT 26.3 % (39.0-53.0); HDW 3.09; HGB 8.5 gm/dL (13.0-17.5); Hypochromasia Slight; Luc # (Auto) 0.24; Luc % (Auto) 2; Lymphocytes # (A) 1.3 k/uL (1.0-4.8); Lymphocytes % (A) 10 %; MCH 28.2 pg (25.0-35.0); MCHC 32.3 g/dL (31.0-37.0); MCV 87.3 fL (80.0-100.0); Mean Platelet Volume 7.7; Monocytes # (A) 1.4 k/uL (0-1.0); Monocytes % (A) 11 %; Neutrophils # (A) 9.6 k/uL (1.3-7.7); Neutrophils % (A) 75 %; RBC 3.01 m/uL (4.30-5.90); RDW 16.7 % (11.5-15.5); WBC 12.7 k/uL (3.8-10.6); WBC (Perox) 12.85
[2016-12-29] MEDS: VANCOMYCIN 1,500 MG in SODIUM CHLORIDE 0.9% 250 ML IVPB SCH ×3 (05:44→21:07)
[2016-12-29 06:29] LABS: Anion Gap 12 mmol/L; Blood Urea Nitrogen 10 mg/dL (9-20); Calcium 8.5 mg/dL (8.4-10.2); Carbon Dioxide 23 mmol/L (22-30); Chloride 108 mmol/L (98-107); Glucose 122 mg/dL (74-99); Non-African American GFR(MDRD) >60 (>60 ml/min/1.73 sqM); Potassium 5.2 mmol/L (3.5-5.1); Sodium 143 mmol/L (137-145)
[2016-12-29] MEDS: ACETAMINOPHEN IV (For NPO) 1,000 MG in EMPTY BAG 1 BAG IVPB PRN (06:54)
--- NOTE | 2016-12-29 07:01 | XR ---
EXAMINATION TYPE: XR chest 1V DATE OF EXAM: 12/29/2016 6:38 AM HISTORY: sob. REFERENCE: Previous study dated 12/28/2016. FINDINGS: An NG tube remains in place, unchanged in appearance. There is worsening left basilar airsp chuck disease. The heart is not enlarged. I suspect a small left effusion. IMPRESSION: LEFT BASILAR AIRSPACE DISEASE. I SUSPECT PNEUMONIA.
[2016-12-29] MEDS: LORazepam 2 MG/ML SYRINGE IV SCH ×2 (07:52→20:22)
[2016-12-29] MEDS: IPRATROPIUM-ALBUTEROL 3 ML NEB INHALATION SCH ×4 (07:52→19:48)
[2016-12-29] MEDS: ENOXAPARIN 40 MG/0.4 ML SYRINGE SQ SCH (08:41)
[2016-12-29] MEDS: PANTOPRAZOLE 40 MG/10 ML VIAL IV SCH (08:42)
[2016-12-29] MEDS: TOPIRAMATE 15 MG PO SCH ×2 (08:43→18:31)
[2016-12-29] MEDS: DIVALPROEX SPRINKLE 125 MG CAP.SPRINK PO SCH ×2 (08:44→18:30)
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
[2016-12-29] MEDS: CHOLECALCIFEROL 1,000 UNIT TAB PO SCH (12:54)
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
[2016-12-29] MEDS: LEVOFLOXACIN 750MG-D5W PMX 750 MG in DEXTROSE/WATER 1 150ML.BAG IVPB SCH (14:44)
[2016-12-30] MEDS: SODIUM CHLORIDE 0.9% 1,000 ML IV SCH ×4 (00:53→23:45)
[2016-12-30] MEDS: ACETAMINOPHEN IV (For NPO) 1,000 MG in EMPTY BAG 1 BAG IVPB PRN (00:55)
[2016-12-30] MEDS ORDERED: VANCOMYCIN TROUGH DUE 1 EACH MISC MISCELLANE ONE (05:00)
[2016-12-30 05:04] LABS: Anisocytosis Slight; CH 27.4; CHCM 31.3; HCT 24.7 % (39.0-53.0); HDW 2.97; HGB 7.8 gm/dL (13.0-17.5); Hypochromasia Slight; Immature Gran Flag Moderate; MCH 27.8 pg (25.0-35.0); MCHC 31.5 g/dL (31.0-37.0); MCV 88.1 fL (80.0-100.0); Mean Platelet Volume 6.7; RDW 16.7 % (11.5-15.5); WBC 12.8 k/uL (3.8-10.6); WBC (Perox) 13.36
[2016-12-30] MEDS: VANCOMYCIN 1,500 MG in SODIUM CHLORIDE 0.9% 250 ML IVPB SCH ×3 (06:01→23:44)
[2016-12-30 06:05] LABS: Add Differential Manual Differential
[2016-12-30 06:17] LABS: Band Neutrophils % 22.5 %; Metamyelocytes % 4.5 %; Nucleated Red Blood Cells 0 /100 WBC (0-0); Total Cells Counted 200
[2016-12-30 06:18] LABS: Polychromasia Present; Target Cells Present
[2016-12-30 06:19] LABS: Toxic Granulation Present
[2016-12-30 06:57] LABS: Anion Gap 12 mmol/L; Blood Urea Nitrogen 11 mg/dL (9-20); Calcium 8.2 mg/dL (8.4-10.2); Carbon Dioxide 23 mmol/L (22-30); Chloride 105 mmol/L (98-107); Glucose 74 mg/dL (74-99); Magnesium 2.3 mg/dL (1.6-2.3); Non-African American GFR(MDRD) >60 (>60 ml/min/1.73 sqM); Phosphorous 5.3 mg/dL (2.5-4.5); Potassium 4.6 mmol/L (3.5-5.1); Sodium 140 mmol/L (137-145)
[2016-12-30] MEDS: IPRATROPIUM-ALBUTEROL 3 ML NEB INHALATION SCH ×4 (07:36→20:05)
--- NOTE | 2016-12-30 07:53 | XR ---
EXAMINATION TYPE: XR chest 1V DATE OF EXAM: 12/30/2016 6:21 AM COMPARISON: 12/29/2016 HISTORY: Shortness of breath TECHNIQUE: Single frontal view of the chest is obtained. FINDINGS: Bilateral lower lobe infiltrate and small left effusion. Perihilar changes on the left are stable. No pneumothorax. Heart size normal. IMPRESSION: 1. Bilateral areas of infiltrate and small left effusion.
[2016-12-30] MEDS: TOPIRAMATE 15 MG PO SCH ×2 (08:12→18:42)
[2016-12-30] MEDS: DIVALPROEX SPRINKLE 125 MG CAP.SPRINK PO SCH ×2 (08:12→18:40)
[2016-12-30] MEDS: PANTOPRAZOLE 40 MG/10 ML VIAL IV SCH (08:12)
[2016-12-30] MEDS: LORazepam 2 MG/ML SYRINGE IV SCH ×2 (08:13→21:42)
[2016-12-30] MEDS: PIPERACILLIN-TAZOBACTAM 3.375 GM in DEXTROSE/WATER 1 50ML.BAG IVPB SCH ×3 (08:13→23:45)
[2016-12-30] MEDS: ENOXAPARIN 40 MG/0.4 ML SYRINGE SQ SCH (09:25)
[2016-12-30 09:31] VITALS: BMI 26.5
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
--- NOTE | 2016-12-30 10:51 | P.PN ---
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 Patient apparently sustained significant brain injury from his meningitis while he was an infant. Patient was brought in by his mother today with a few days history of fever cough and shortness of breath. In the ER, the patient was noted to have significant pneumonia involving the left lung, patient had elevated lactic acid , hypotension requiring fluid boluses, but did not require pressors. CODE STATUS was discussed with the family, apparently the patient is DO NOT RESUSCITATE according to his family's wishes. This was later confirmed by me when I discussed the same issue with his mother at bedside in the intensive care unit. Patient was placed on Zosyn and Levaquin. He was given 2 L of fluid boluses in the ER, and he was transferred to the intensive care unit on a non-rebreather mask. O2 saturation was marginal. However the patient was hemodynamically stable in the ICU upon arrival. Patient was placed on the sepsis protocol, and placed on antibiotics in the form of Levaquin and Zosyn, GI and DVT prophylaxis. Mother does not want the patient to be placed on life support and does not want him to be placed on pressors if his blood pressure is to drop. Patient was reexamined today on 12/24/2016, remains on BiPAP, FiO2 is 80%, chest x-ray continues to show an extensive infiltrate involving the left lung cultures are negative so far. Patient is saturating in the mid 90s on BiPAP, blood pressure was low earlier this morning but he responded to fluid bolus. And he seems to be making good urine output. CBC showed low WBC count of 1.4, leukopenic secondary to sepsis, hemoglobin is 8.7, toxic granulation was noted in the differential basic metabolic profile and renal profile are normal lactic acid is down to 1.5 from 3.1 on admission. Valproic acid level is normal/ therapeutic platelets are 89,000. Clearly we are seeing pancytopenic picture related to sepsis. Blood cultures remain negative so far. Urine cultures are in progress. Patient was reevaluated today on 12/25/2016, remains about the same, presently on BiPAP, chest x-ray continues to show extensive pneumonia involving the left lung.blood cultures remain negative.labs are showing slight improvement, WBC count is up to 4.2 hemoglobin is 8.5 bands are 51%,basic metabolic profile is relatively unremarkable. Renal profile is normal. Blood sugar is 93.antibiotics remain the same including vancomycin, Zosyn,and Levaquin. Hemodynamics-awad the patient remains hemodynamically stable, not requiring any pressors. Patient was reevaluated today on 12/26/2016, remains on BiPAP, chest x-ray is showing some improvement in the left sided infiltrate and pneumonia. His labs are showing definite improvementin the sense that his white count is 7.4 hemoglobin is 9.1 PMNs are 82%, no evidence of toxic granulation and ejaculation noted on the differential today. Blood cultures remain negative. Patient remains on the same antibiotics, and considering his improving, I have no plans to change of antibiotics today. Reevaluated today on 12/27/2016, patient is now on a Ventimask, chest x-ray is showing slight improvement, O2 saturations remained holding in the 90s, patient does not seem to be in distress. Remains on the same antibiotics, all his labs were reviewed, blood cultures remain negative. Patient remains hemodynamically stable. Reevaluated today on 12/28/2016, patient is on a 40% Ventimask, O2 saturations are in the high 90s. Chest x-ray is significantly improving, continues to have some infiltrate in the left lower lobe, but there is clearly a significant improvement in the left sided pneumonia. Labs are all reviewed including the CBC and the rest of the labs potassium is elevated, patient is a hard stick, hence no more potassium given to the patient, and he seems to be diuresing quite well. No need to recheck the potassium at this point. But will be rechecked in the morning again. Renal profile is normal. CBC and differential are showing significant improvement, platelets are improving, this is all indicative of resolution of sepsis slowly. The patient is seen again today 12/29/2016 in follow-up in the intensive care unit. His oxygen requirements are improving. He is currently on 2 L/m per nasal cannula. He is maintaining good O2 saturations in the upper 90s. He continues to have fevers with a T-max of 102.9. His chest x-ray continues to show some left lung pneumonia. He is tachycardic in the 120s and 130s as well. He has a 0.9 at 125 mL per hour. He is continued on vancomycin, Zosyn and Levaquin. The patient is seen again today 12/30/2016 in follow-up. He remains in the intensive care unit. His chest x-ray today reveals significant improvement. He is down to 2 L/m per nasal cannula. He's been hemodynamically stable. Afebrile. He is less tachycardic in the 110s.. Objective - Vital Signs Vital signs: Vital Signs Temp 97.4 F L 12/30/16 08:00 Pulse 115 H 12/30/16 10:00 Resp 31 H 12/30/16 10:00 BP 144/72 12/30/16 10:00 Pulse Ox 95 12/30/16 10:00 Intake & Output 12/29/16 12/30/16 12/30/16 18:59 06:59 18:59 Intake Total 1989 1700 350 Output Total 1994 2355 475 Balance -5 -655 -125 Weight 51.8 kg 51.8 kg Intake: IV 1700 1700 350 Levofloxacin 750Mg-D5w 100 Pmx 750 mg In Dextrose/ Water 1 150ml.bag @ 100 mls/hr IVPB Q24H [facility] Rx#: [id number] Piperacillin-Tazobactam 3 100 75 50 .375 gm In Dextrose/Water 1 50ml.bag @ 12.5 mls/hr IVPB Q8HR [facility] Rx#: [id number] Sodium Chloride 0.9% 1, 1500 1625 300 000 ml @ 125 mls/hr IV . Q8H [facility] Rx#:[id number] Intake, IV Titration 250 Amount Vancomycin 1,500 mg In 250 Sodium Chloride 0.9% 250 ml @ 125 mls/hr IVPB Q8H [facility] Rx#:[id number] Tube Feeding 40 Output: Urine 19944 274 Other: Voiding Method Indwelling Catheter Indwelling Catheter Indwelling Catheter # Bowel Movements 1 0 - Exam GENERAL EXAM: Weak, nonverbal. HEAD: Normocephalic. 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 NOSE: Clear with pink turbinates. Nasogastric tube in place. THROAT: No erythema or exudates. NECK: No masses, no JVD. CHEST: No chest wall deformity. LUNGS: Equal air entry with bilateral scattered rhonchi more so on the left. CVS: S1 and S2 normal with no audible murmurs, regular rhythm. ABDOMEN: No hepatosplenomegaly, normal bowel sounds, no guarding or rigidity. Extremities: The patient is quite contracted. No significant peripheral edema. Peripheral pulses are intact. - Labs CBC & Chem 7: 12/30/16 04:43 12/30/16 04:43 Labs: Abnormal Lab Results - Last 24 Hours (Table) 12/30/16 12/30/16 Range/Units 04:43 04:43 WBC 12.8 H (3.8-10.6) k/uL RBC 2.80 L (4.30-5.90) m/uL Hgb 7.8 L (13.0-17.5) gm/dL Hct 24.7 L (39.0-53.0) % RDW 16.7 H (11.5-15.5) % Neutrophils # (Manual) 8.7 H (1.3-7.7) k/uL Monocytes # (Manual) 1.2 H (0-1.0) k/uL Creatinine 0.60 L (0.66-1.25) mg/dL Calcium 8.2 L (8.4-10.2) mg/dL Phosphorus 5.3 H (2.5-4.5) mg/dL Assessment and Plan Plan: Impression: 1 acute extensive left sided pneumonia and sepsis. The pneumonia is community- acquired, felt to be likely as a complication of his recent influenza infection. 2 acute influenza infection, complicated by extensive pneumonia. 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 4 history of seizure disorder related to previous brain injury and meningitis. 5 pancytopenia secondary to sepsis and significant bone marrow myelosuppression. Seems to be improving significantly based on the CBC today. The patient was seen and evaluated by Dr. Maravilla. His chest x-ray and labs were reviewed. His chest x-ray is significantly improved. We will plan to transfer him out of the intensive care unit today. We'll continue with his current antibiotics and bronchodilators. His father remains at the bedside and it is agreeable to the plan. We'll continue to follow.
[2016-12-30] MEDS ORDERED: ACETAMINOPHEN TAB 500 MG TAB PO PRN (11:47)
--- NOTE | 2016-12-30 13:06 | P.PN ---
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 Patient was apparently recently transferred to an assisted living facility or to another weeks ago. Patient apparently appeared to be ill was thereafter transferred to the hospital for ongoing care. Patient was noted to have severe hypoxia was positive for influenza and there was a left lower lobe pneumonic infiltrate that was noted. Patient was started on IV antibiotics. Patient was initially placed on BiPAP. Wasn't titrated off of BiPAP and oxygen with the following days. Patient does have a decubitus ulcer on his nose secondary to use of BiPAP. Patient is nonverbal at baseline and apparently has no vision as well. 12/30/2016 Patient is having bowel movements. No other events reported. Patient is nonverbal Objective - Vital Signs Vital signs: Vital Signs Temp 99.2 F 12/30/16 12:00 Pulse 116 H 12/30/16 12:00 Resp 11 L 12/30/16 12:00 BP 154/71 12/30/16 12:00 Pulse Ox 96 12/30/16 11:00 Intake & Output 12/29/16 12/30/16 12/30/16 18:59 06:59 18:59 Intake Total 1989 1700 350 Output Total 1994 8553 475 Balance -5 -655 -125 Weight 51.8 kg 51.8 kg Intake: IV 1700 1700 350 Levofloxacin 750Mg-D5w 100 Pmx 750 mg In Dextrose/ Water 1 150ml.bag @ 100 mls/hr IVPB Q24H [facility] Rx#: [id number] Piperacillin-Tazobactam 3 100 75 50 .375 gm In Dextrose/Water 1 50ml.bag @ 12.5 mls/hr IVPB Q8HR [facility] Rx#: [id number] Sodium Chloride 0.9% 1, 1500 1625 300 000 ml @ 125 mls/hr IV . Q8H [facility] Rx#:[id number] Intake, IV Titration 250 Amount Vancomycin 1,500 mg In 250 Sodium Chloride 0.9% 250 ml @ 125 mls/hr IVPB Q8H [facility] Rx#:[id number] Tube Feeding 40 Output: Urine 1994 1604 475 Other: Voiding Method Indwelling Catheter Indwelling Catheter Indwelling Catheter # Bowel Movements 1 0 - Exam Gen. appearance appears to be comfortable Neck is supple Lungs good air movement no crackles wheezes and rhonchi appreciated Heart slightly tachycardic no murmurs appreciated Abdomen soft nontender no grimacing noted Lower extremities are contracted no edema appreciated Neuro exam is deferred due to patient's clinical condition. 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 Patient will be continued on vancomycin and Zosyn. As patient has influenza suspicion for MRSA should be considered in a patient living in shelter. Patient will be monitored in regards to tachycardia as it is somewhat related to patient's episodes of fevers. Patient can be triaged out of the intensive care unit at this time.
[2016-12-30] MEDS: CHOLECALCIFEROL 1,000 UNIT TAB PO SCH (13:25)
[2016-12-30] MEDS: LEVOFLOXACIN 750MG-D5W PMX 750 MG in DEXTROSE/WATER 1 150ML.BAG IVPB SCH (15:10)
[2016-12-30] MEDS: SILVER sulfADIAZINE Cream 400 GM 1 APPLIC APPLIC TOPICAL SCH (21:46)
[2016-12-31] MEDS: ACETAMINOPHEN SUPPOSITORY 650 MG SUPP RECTAL PRN ×2 (02:01→21:58)
[2016-12-31] MEDS: VANCOMYCIN 1,500 MG in SODIUM CHLORIDE 0.9% 250 ML IVPB SCH ×3 (05:55→22:34)
[2016-12-31] MEDS: IPRATROPIUM-ALBUTEROL 3 ML NEB INHALATION SCH ×4 (07:30→20:48)
[2016-12-31] MEDS: DIVALPROEX SPRINKLE 125 MG CAP.SPRINK PO SCH ×2 (07:48→17:41)
[2016-12-31] MEDS: PANTOPRAZOLE 40 MG/10 ML VIAL IV SCH (07:49)
[2016-12-31] MEDS: ENOXAPARIN 40 MG/0.4 ML SYRINGE SQ SCH (07:49)
[2016-12-31] MEDS: TOPIRAMATE 15 MG PO SCH ×2 (07:49→17:40)
[2016-12-31] MEDS: LORazepam 2 MG/ML SYRINGE IV SCH ×2 (07:53→21:42)
[2016-12-31 08:05] LABS: Anisocytosis Slight; CH 27.4; CHCM 30.4; HCT 27.2 % (39.0-53.0); HDW 2.83; HGB 8.5 gm/dL (13.0-17.5); Hypochromasia Moderate; Immature Gran Flag Marked; MCH 28.3 pg (25.0-35.0); MCHC 31.2 g/dL (31.0-37.0); MCV 90.7 fL (80.0-100.0); Mean Platelet Volume 7.6; RDW 16.6 % (11.5-15.5); WBC (Perox) 13.56
[2016-12-31 08:10] LABS: ALT 28 U/L (21-72); AST 44 U/L (17-59); Alkaline Phosphatase 78 U/L (38-126); Anion Gap 11 mmol/L; Blood Urea Nitrogen 12 mg/dL (9-20); Calcium 8.7 mg/dL (8.4-10.2); Carbon Dioxide 22 mmol/L (22-30); Chloride 107 mmol/L (98-107); Glucose 81 mg/dL (74-99); Magnesium 2.5 mg/dL (1.6-2.3); Non-African American GFR(MDRD) >60 (>60 ml/min/1.73 sqM); Phosphorous 5.3 mg/dL (2.5-4.5); Sodium 140 mmol/L (137-145); Total Bilirubin 0.4 mg/dL (0.2-1.3); Total Protein 6.4 g/dL (6.3-8.2)
[2016-12-31 08:48] LABS: Add Differential Manual Differential
[2016-12-31 08:52] LABS: Band Neutrophils % 4.5 %; Manual Review Performed; Metamyelocytes % 4.5 %; Myelocytes % 3.5 %; Nucleated Red Blood Cells 1 /100 WBC (0-0); Total Cells Counted 200; WBC 13.6 k/uL (3.8-10.6)
[2016-12-31] MEDS: SILVER sulfADIAZINE Cream 400 GM 1 APPLIC APPLIC TOPICAL SCH ×2 (09:26→21:42)
[2016-12-31] MEDS: PIPERACILLIN-TAZOBACTAM 3.375 GM in DEXTROSE/WATER 1 50ML.BAG IVPB SCH ×2 (09:26→16:39)
[2016-12-31] MEDS: SODIUM CHLORIDE 0.9% 1,000 ML IV SCH ×2 (09:44→16:43)
--- NOTE | 2016-12-31 10:47 | P.PN ---
Subjective Progress note dated 12/31/2016 This is a 31-year-old mentally handicapped young male who was admitted with a diagnosis of pneumonia. Possible aspiration. He was clinically improved over the last few days and yesterday he was moved out of the ICU to the general medical floor. Doing much better. Is down to 2 L nasal cannula. Chest x-rays improved clinically he is improved. He's not able to really talk to me today and give him any additional history but he looks relatively stable. No audible wheezing. Not using accessory muscles. No grunting respirations or anything like that. Objective - Vital Signs Vital signs: Vital Signs Temp 99.2 F 12/31/16 07:00 Pulse 88 12/31/16 07:40 Resp 20 12/31/16 00:00 BP 117/76 12/31/16 07:00 Pulse Ox 95 12/31/16 08:30 Intake & Output 12/30/16 12/31/16 12/31/16 18:59 06:59 18:59 Intake Total 350 Output Total 1475 1000 Balance -1125 -1000 Weight 51.8 kg 55.792 kg Intake: IV 350 Piperacillin-Tazobactam 3 50 .375 gm In Dextrose/Water 1 50ml.bag @ 12.5 mls/hr IVPB Q8HR [facility] Rx#: [id number] Sodium Chloride 0.9% 1, 300 000 ml @ 125 mls/hr IV . Q8H [facility] Rx#:[id number] Output: Urine 1075 1000 Emesis 400 Other: Voiding Method Indwelling Catheter Indwelling Catheter Indwelling Catheter # Bowel Movements 0 - Exam No acute distress, no respiratory distress HEENT examination is grossly unremarkable. Neck supple. Cardiovascular examination reveals regular rhythm rate. Heart rate in the 80s. S1-S2 normal. Lungs reveal few scattered mild rhonchi. Difficult to assess his lungs. Doesn' t really respond when you ask me to take a deep breath. No obvious wheezes or crackles. Abdomen soft Extremities are intact. Some mild contractures are noted. - Labs CBC & Chem 7: 12/31/16 07:06 12/31/16 07:06 Labs: Abnormal Lab Results - Last 24 Hours (Table) 12/31/16 12/31/16 Range/Units 07:06 07:06 WBC 13.6 H (3.8-10.6) k/uL RBC 3.00 L (4.30-5.90) m/uL Hgb 8.5 L (13.0-17.5) gm/dL Hct 27.2 L (39.0-53.0) % RDW 16.6 H (11.5-15.5) % Plt Count 462 H (150-450) k/uL Neutrophils # (Manual) 8.3 H (1.3-7.7) k/uL Monocytes # (Manual) 1.4 H (0-1.0) k/uL Nucleated RBCs 1 H (0-0) /100 WBC Creatinine 0.56 L (0.66-1.25) mg/dL Phosphorus 5.3 H (2.5-4.5) mg/dL Magnesium 2.5 H (1.6-2.3) mg/dL Albumin 2.8 L (3.5-5.0) g/dL Assessment and Plan (1) Influenza Status: Acute (2) Pneumonia Status: Acute (3) Sepsis Status: Acute Plan: Plan dated 12/31/2016 The patient's chest x-ray from yesterday was much improved. Clinically he was much improved. We're we'll speak to his father. He was moved out of the ICU. Will continue on bronchodilators and antibiotics. We do have an aspiration precautions. Head of bed should be elevated at all times and more between 30-45 . Never flat. Additional recommendations suggestions forthcoming. Time with Patient: Less than 30
[2016-12-31] MEDS: CHOLECALCIFEROL 1,000 UNIT TAB PO SCH (12:30)
--- NOTE | 2016-12-31 14:31 | P.PN ---
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 Patient was apparently recently transferred to an assisted living facility or to another weeks ago. Patient apparently appeared to be ill was thereafter transferred to the hospital for ongoing care. Patient was noted to have severe hypoxia was positive for influenza and there was a left lower lobe pneumonic infiltrate that was noted. Patient was started on IV antibiotics. Patient was initially placed on BiPAP. Wasn't titrated off of BiPAP and oxygen with the following days. Patient does have a decubitus ulcer on his nose secondary to use of BiPAP. Patient is nonverbal at baseline and apparently has no vision as well. 12/30/2016 Patient is having bowel movements. No other events reported. Patient is nonverbal 12/31/2016 Patient is laying flat. Apparently he is not close to his baseline. No other overnight events are reported by the nursing staff. Objective - Vital Signs Vital signs: Vital Signs Temp 99.2 F 12/31/16 07:00 Pulse 84 12/31/16 12:28 Resp 20 12/31/16 00:00 BP 117/76 12/31/16 07:00 Pulse Ox 95 12/31/16 08:30 Intake & Output 12/30/16 12/31/16 12/31/16 18:59 06:59 18:59 Intake Total 350 Output Total 1475 1000 Balance -1125 -1000 Weight 51.8 kg 55.792 kg Intake: IV 350 Piperacillin-Tazobactam 3 50 .375 gm In Dextrose/Water 1 50ml.bag @ 12.5 mls/hr IVPB Q8HR [facility] Rx#: [id number] Sodium Chloride 0.9% 1, 300 000 ml @ 125 mls/hr IV . Q8H [facility] Rx#:[id number] Output: Urine 1075 1000 Emesis 400 Other: Voiding Method Indwelling Catheter Indwelling Catheter Indwelling Catheter # Bowel Movements 0 - Exam Gen. appearance appears to be comfortable Neck is supple Lungs good air movement no crackles wheezes and rhonchi appreciated Heart slightly tachycardic no murmurs appreciated Abdomen soft nontender no grimacing noted Lower extremities are contracted no edema appreciated Neuro exam is deferred due to patient's clinical condition. - Labs CBC & Chem 7: 12/31/16 07:06 03/29/17 07:06 Labs: Abnormal Lab Results - Last 24 Hours (Table) 12/31/16 12/31/16 Range/Units 07:06 07:06 WBC 13.6 H (3.8-10.6) k/uL RBC 3.00 L (4.30-5.90) m/uL Hgb 8.5 L (13.0-17.5) gm/dL Hct 27.2 L (39.0-53.0) % RDW 16.6 H (11.5-15.5) % Plt Count 462 H (150-450) k/uL Neutrophils # (Manual) 8.3 H (1.3-7.7) k/uL Monocytes # (Manual) 1.4 H (0-1.0) k/uL Nucleated RBCs 1 H (0-0) /100 WBC Creatinine 0.56 L (0.66-1.25) mg/dL Phosphorus 5.3 H (2.5-4.5) mg/dL Magnesium 2.5 H (1.6-2.3) mg/dL Albumin 2.8 L (3.5-5.0) g/dL Assessment and Plan Plan: #1 influenza pneumonitis #2 acute hypoxic respiratory failure secondary to left-sided pneumonia #3 sepsis #4 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 Aspiration precautions as recommended by pulmonology. Patient should be moved to to his chair. pt is improving will likely need another 24-48 hours prior to discharge.
[2017-01-01] MEDS: PIPERACILLIN-TAZOBACTAM 3.375 GM in DEXTROSE/WATER 1 50ML.BAG IVPB SCH ×2 (01:05→08:25)
[2017-01-01 02:53] VITALS: RESP 16
[2017-01-01] MEDS: SODIUM CHLORIDE 0.9% 1,000 ML IV SCH ×2 (04:12→08:35)
[2017-01-01] MEDS ORDERED: VANCOMYCIN TROUGH DUE 1 EACH MISC MISCELLANE ONE (05:00)
[2017-01-01 06:09] LABS: ALT 34 U/L (21-72); AST 38 U/L (17-59); Alkaline Phosphatase 78 U/L (38-126); Anion Gap 12 mmol/L; Blood Urea Nitrogen 14 mg/dL (9-20); Calcium 8.7 mg/dL (8.4-10.2); Carbon Dioxide 23 mmol/L (22-30); Chloride 108 mmol/L (98-107); Glucose 86 mg/dL (74-99); Magnesium 2.4 mg/dL (1.6-2.3); Non-African American GFR(MDRD) >60 (>60 ml/min/1.73 sqM); Phosphorous 5.7 mg/dL (2.5-4.5); Potassium 5.2 mmol/L (3.5-5.1); Sodium 143 mmol/L (137-145); Total Bilirubin 0.3 mg/dL (0.2-1.3); Total Protein 6.7 g/dL (6.3-8.2)
[2017-01-01 06:22] LABS: Anisocytosis Slight; CH 27.6; CHCM 31.7; HCT 26.5 % (39.0-53.0); HDW 2.87; HGB 8.3 gm/dL (13.0-17.5); Immature Gran Flag Slight; MCH 27.4 pg (25.0-35.0); MCHC 31.3 g/dL (31.0-37.0); MCV 87.4 fL (80.0-100.0); Mean Platelet Volume 7.6; RBC 3.03 m/uL (4.30-5.90); RDW 16.6 % (11.5-15.5); WBC (Perox) 11.67
[2017-01-01 06:39] LABS: Add Differential Manual Differential
[2017-01-01 06:43] LABS: Manual Review Performed
[2017-01-01 06:46] LABS: Metamyelocytes % 1.5 %; Nucleated Red Blood Cells 1 /100 WBC (0-0); Total Cells Counted 200; WBC 10.9 k/uL (3.8-10.6)
[2017-01-01] MEDS: VANCOMYCIN 1,500 MG in SODIUM CHLORIDE 0.9% 250 ML IVPB SCH (07:02)
[2017-01-01] MEDS: IPRATROPIUM-ALBUTEROL 3 ML NEB INHALATION SCH ×2 (07:28→12:17)
[2017-01-01] MEDS ORDERED: VANCOMYCIN 1,250 MG in SODIUM CHLORIDE 0.9% 250 ML IVPB SCH ×2 (08:00→12:00)
[2017-01-01] MEDS: ENOXAPARIN 40 MG/0.4 ML SYRINGE SQ SCH (08:24)
[2017-01-01] MEDS: DIVALPROEX SPRINKLE 125 MG CAP.SPRINK PO SCH (08:24)
[2017-01-01] MEDS: TOPIRAMATE 15 MG PO SCH (08:24)
[2017-01-01] MEDS: PANTOPRAZOLE 40 MG/10 ML VIAL IV SCH (08:27)
[2017-01-01] MEDS: SILVER sulfADIAZINE Cream 400 GM 1 APPLIC APPLIC TOPICAL SCH (08:34)
[2017-01-01] MEDS: LORazepam 2 MG/ML SYRINGE IV SCH (08:40)
[2017-01-01 08:55] VITALS: BP 133/78; TEMP 96.8
[2017-01-01 12:30] VITALS: PULSE 82
[2017-01-01] MEDS: CHOLECALCIFEROL 1,000 UNIT TAB PO SCH (13:05)
--- NOTE | 2017-01-01 13:07 | P.PN ---
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 Patient apparently sustained significant brain injury from his meningitis while he was an infant. Patient was brought in by his mother today with a few days history of fever cough and shortness of breath. In the ER, the patient was noted to have significant pneumonia involving the left lung, patient had elevated lactic acid , hypotension requiring fluid boluses, but did not require pressors. CODE STATUS was discussed with the family, apparently the patient is DO NOT RESUSCITATE according to his family's wishes. This was later confirmed by me when I discussed the same issue with his mother at bedside in the intensive care unit. Patient was placed on Zosyn and Levaquin. He was given 2 L of fluid boluses in the ER, and he was transferred to the intensive care unit on a non-rebreather mask. O2 saturation was marginal. However the patient was hemodynamically stable in the ICU upon arrival. Patient was placed on the sepsis protocol, and placed on antibiotics in the form of Levaquin and Zosyn, GI and DVT prophylaxis. Mother does not want the patient to be placed on life support and does not want him to be placed on pressors if his blood pressure is to drop. Patient was reexamined today on 12/24/2016, remains on BiPAP, FiO2 is 80%, chest x-ray continues to show an extensive infiltrate involving the left lung cultures are negative so far. Patient is saturating in the mid 90s on BiPAP, blood pressure was low earlier this morning but he responded to fluid bolus. And he seems to be making good urine output. CBC showed low WBC count of 1.4, leukopenic secondary to sepsis, hemoglobin is 8.7, toxic granulation was noted in the differential basic metabolic profile and renal profile are normal lactic acid is down to 1.5 from 3.1 on admission. Valproic acid level is normal/ therapeutic platelets are 89,000. Clearly we are seeing pancytopenic picture related to sepsis. Blood cultures remain negative so far. Urine cultures are in progress. Patient was reevaluated today on 12/25/2016, remains about the same, presently on BiPAP, chest x-ray continues to show extensive pneumonia involving the left lung.blood cultures remain negative.labs are showing slight improvement, WBC count is up to 4.2 hemoglobin is 8.5 bands are 51%,basic metabolic profile is relatively unremarkable. Renal profile is normal. Blood sugar is 93.antibiotics remain the same including vancomycin, Zosyn,and Levaquin. Hemodynamics-awad the patient remains hemodynamically stable, not requiring any pressors. Patient was reevaluated today on 12/26/2016, remains on BiPAP, chest x-ray is showing some improvement in the left sided infiltrate and pneumonia. His labs are showing definite improvementin the sense that his white count is 7.4 hemoglobin is 9.1 PMNs are 82%, no evidence of toxic granulation and ejaculation noted on the differential today. Blood cultures remain negative. Patient remains on the same antibiotics, and considering his improving, I have no plans to change of antibiotics today. Reevaluated today on 12/27/2016, patient is now on a Ventimask, chest x-ray is showing slight improvement, O2 saturations remained holding in the 90s, patient does not seem to be in distress. Remains on the same antibiotics, all his labs were reviewed, blood cultures remain negative. Patient remains hemodynamically stable. Reevaluated today on 12/28/2016, patient is on a 40% Ventimask, O2 saturations are in the high 90s. Chest x-ray is significantly improving, continues to have some infiltrate in the left lower lobe, but there is clearly a significant improvement in the left sided pneumonia. Labs are all reviewed including the CBC and the rest of the labs potassium is elevated, patient is a hard stick, hence no more potassium given to the patient, and he seems to be diuresing quite well. No need to recheck the potassium at this point. But will be rechecked in the morning again. Renal profile is normal. CBC and differential are showing significant improvement, platelets are improving, this is all indicative of resolution of sepsis slowly. The patient is seen again today 12/29/2016 in follow-up in the intensive care unit. His oxygen requirements are improving. He is currently on 2 L/m per nasal cannula. He is maintaining good O2 saturations in the upper 90s. He continues to have fevers with a T-max of 102.9. His chest x-ray continues to show some left lung pneumonia. He is tachycardic in the 120s and 130s as well. He has a 0.9 at 125 mL per hour. He is continued on vancomycin, Zosyn and Levaquin. The patient is seen again today 12/30/2016 in follow-up. He remains in the intensive care unit. His chest x-ray today reveals significant improvement. He is down to 2 L/m per nasal cannula. He's been hemodynamically stable. Afebrile. He is less tachycardic in the 110s. He is seen again today 01/01/2017 in follow-up. He has been stable from the pulmonary standpoint. He is maintaining good O2 saturations in the upper 90s on room air. He has been afebrile. His father is anxious to take him home today. Objective - Vital Signs Vital signs: Vital Signs Temp 96.8 F L 01/01/17 07:00 Pulse 82 01/01/17 12:29 Resp 16 01/01/17 12:18 BP 133/78 01/01/17 07:00 Pulse Ox 93 L 01/01/17 07:00 Intake & Output 12/31/16 01/01/17 01/01/17 18:59 06:59 18:59 Intake Total 1000 1425 Output Total 600 Balance 400 1425 Weight 54.7 kg Intake: IV 1000 1425 Piperacillin-Tazobactam 3 50 .375 gm In Dextrose/Water 1 50ml.bag @ 12.5 mls/hr IVPB Q8HR [facility] Rx#: [id number] Sodium Chloride 0.9% 1, 1000 1125 000 ml @ 125 mls/hr IV . Q8H [facility] Rx#:[id number] Vancomycin 1,500 mg In 250 Sodium Chloride 0.9% 250 ml @ 125 mls/hr IVPB Q8H [facility] Rx#:[id number] Output: Urine 600 Other: Voiding Method Diaper Diaper Diaper Incontinent Incontinent # Voids 1 # Bowel Movements 1 - Exam GENERAL EXAM: Weak, nonverbal. HEAD: Normocephalic. 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 NOSE: Clear with pink turbinates. Nasogastric tube in place. THROAT: No erythema or exudates. NECK: No masses, no JVD. CHEST: No chest wall deformity. LUNGS: Equal air entry with bilateral scattered rhonchi more so on the left. CVS: S1 and S2 normal with no audible murmurs, regular rhythm. ABDOMEN: No hepatosplenomegaly, normal bowel sounds, no guarding or rigidity. Extremities: The patient is quite contracted. No significant peripheral edema. Peripheral pulses are intact. - Labs CBC & Chem 7: 01/01/17 05:20 01/01/17 05:20 Labs: Abnormal Lab Results - Last 24 Hours (Table) 01/01/17 01/01/17 Range/Units 05:20 05:20 WBC 10.9 H (3.8-10.6) k/uL RBC 3.03 L (4.30-5.90) m/uL Hgb 8.3 L (13.0-17.5) gm/dL Hct 26.5 L (39.0-53.0) % RDW 16.6 H (11.5-15.5) % Plt Count 605 H (150-450) k/uL Monocytes # (Manual) 1.5 H (0-1.0) k/uL Nucleated RBCs 1 H (0-0) /100 WBC Potassium 5.2 H (3.5-5.1) mmol/L Chloride 108 H (98-107) mmol/L Phosphorus 5.7 H (2.5-4.5) mg/dL Magnesium 2.4 H (1.6-2.3) mg/dL Albumin 3.0 L (3.5-5.0) g/dL Assessment and Plan Plan: Impression: 1 acute extensive left sided pneumonia and sepsis. The pneumonia is community- acquired, felt to be likely as a complication of his recent influenza infection. 2 acute influenza infection, complicated by extensive pneumonia. 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 4 history of seizure disorder related to previous brain injury and meningitis. 5 pancytopenia secondary to sepsis and significant bone marrow myelosuppression. Seems to be improving significantly based on the CBC today. The patient was seen and evaluated by Dr. Maravilla. He is cleared for discharge from the pulmonary standpoint. He did complete a course of antibiotics probably in the form of Augmentin. His cultures were all negative. We explained to his father that if he is able to bring him to our office for follow -up if he feels there is any ongoing pulmonary issues.
--- NOTE | 2017-01-01 17:14 | P.DS ---
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 Patient was apparently recently transferred to an assisted living facility or to another weeks ago. Patient apparently appeared to be ill was thereafter transferred to the hospital for ongoing care. Patient was noted to have severe hypoxia was positive for influenza and there was a left lower lobe pneumonic infiltrate that was noted. Patient was started on IV antibiotics. Patient was initially placed on BiPAP. Wasn't titrated off of BiPAP and oxygen with the following days. Patient does have a decubitus ulcer on his nose secondary to use of BiPAP. Patient is nonverbal at baseline and apparently has no vision as well. 12/30/2016 Patient is having bowel movements. No other events reported. Patient is nonverbal 12/31/2016 Patient is laying flat. Apparently he is not close to his baseline. No other overnight events are reported by the nursing staff. 01/01/2070 No new overnight events reported. Patient apparently is close to his baseline. Doing better. - Exam Gen. appearance appears to be comfortable Neck is supple Lungs good air movement no crackles wheezes and rhonchi appreciated Heart slightly tachycardic no murmurs appreciated Abdomen soft nontender no grimacing noted Lower extremities are contracted no edema appreciated Neuro exam is deferred due to patient's clinical condition. 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 Plan - Discharge Summary New Discharge Prescriptions: Amoxicillin/Potassium Clav [Augmentin 500-125 Tablet] 1 tab PO Q12HR #14 tab Discharge Medication List Cholecalciferol [Vitamin D3] 1,000 unit PO DAILY 12/23/16 [History] Divalproex Sprinkle [Depakote Sprinkle] 750 mg PO BID-W/MEALS 12/23/16 [History] LORazepam [Ativan] 1.5 mg PO BID 12/23/16 [History] Topiramate [Topamax] 30 mg PO BID-W/MEALS 12/23/16 [History] Amoxicillin/Potassium Clav [Augmentin 500-125 Tablet] 1 tab PO Q12HR #14 tab [Rx] Follow up Appointment(s)/Referral(s): Salvatore Felix MD [Primary Care Provider] - 1-2 days (Dr. Felix no longer sees patient and is currently away from office for next 3 weeks. ) Deshaun Sheridan MD [REFERRING] - 3 Days (Per [facility], They would prefer to set up follow-up appt. for patient through visisting physicians office. ) Ambulatory/Diagnostic Orders: Comprehensive Metabolic Panel [LAB.AMB] Time Frame: 1 Week, Location: Determined By Patient Patient Instructions/Handouts: Amoxicillin/Clavulanate Potassium (By mouth), Potassium Content of Foods List (GEN), Influenza (DC), Hyperkalemia (DC), Community Acquired Pneumonia (DC) Activity/Diet/Wound Care/Special Instructions: Up to chair for meals. Bloodwork in 2-3 days time. Low potassium diet. List of Potassium Rich Foods provided. Discharge Disposition: HOME WITH HOME HEALTH SERVICES
== END 2017-01-01 13:50 | disposition home health service (06) | DRG 871 ==
LOC: EC 09:21 → 6ICU 13:53 → EEVIPCON 13:53 → 6ICU 14:14 → 5MS5E 12-30 14:51
PROVIDERS: ADMIT Internal Medicine; ATTEND Internal Medicine
DX: A41.9 Sepsis, unspecified organism (principal); J96.01 Acute respiratory failure with hypoxia; D61.818 Other pancytopenia; J10.08 Influenza due to other identified influenza virus with other specified pneumonia; E87.2 Acidosis; B94.1 Sequelae of viral encephalitis; I50.9 Heart failure, unspecified; E83.42 Hypomagnesemia; E83.39 Other disorders of phosphorus metabolism; E87.5 Hyperkalemia; G40.909 Epilepsy, unspecified, not intractable, without status epilepticus; Z87.820 Personal history of traumatic brain injury; H54.0 Blindness, both eyes; L89.90 Pressure ulcer of unspecified site, unspecified stage; R65.20 Severe sepsis without septic shock; Z66 Do not resuscitate; F78 Other intellectual disabilities; Z79.899 Other long term (current) drug therapy; Z86.61 Personal history of infections of the central nervous system; Z87.01 Personal history of pneumonia (recurrent); Z99.3 Dependence on wheelchair; Z74.01 Bed confinement status
CPT/HCPCS: 36415; 71010; 71275; 80048; 80053; 80164; 80202; 81001; 82533; 83605; 83735; 84100; 84132; 85025; 85379; 85610; 85730; 87040; 87086; 87502; 93005; 94640; 94660; 96361; 96365; 96366; 96367; 96375; 99291

== ENCOUNTER 2019-06-30 12:06 | Emergency (ER) | payer BC, MEDICARE, OTHER ==
--- NOTE | 2019-06-30 13:13 | ED ---
Extremity Problem HPI - General Chief complaint: Extremity Problem,Nontraumatic Stated complaint: hip pain Time Seen by Provider: 06/30/19 12:33 Source: family, RN notes reviewed, old records reviewed Mode of arrival: EMS Limitations: physical limitation - History of Present Illness Initial comments: This is a 33-year-old male the ER for evaluation of left lower extremity edema. Patient unable to give history history obtained from staff and if it left leg and left lower Shorty swelling noted today that was not present yesterday. Patient is not amateur is no significant trauma is suspected. No significant bruising noted. Just significant swelling of left lower extremity from body into the cath and also into the foot. No prior history of similar complaint on blood thinners clots. History obtained from staff MD Complaint: extremity pain, extremity swelling -: days(s) Location: left, lower extremity History of Same: No Radiation: none Quality: aching Consistency: constant Improves with: nothing Worsens with: nothing Associated Symptoms: denies other symptoms - Related Data Home Medications Medication Instructions Recorded Confirmed Cholecalciferol [Vitamin D3 (25 1,000 unit PO DAILY 12/23/16 06/30/19 Mcg = 1000 Iu)] Divalproex Sprinkle [Depakote 750 mg PO BID-W/MEALS 12/23/16 06/30/19 Sprinkle] LORazepam [Ativan] 1.5 mg PO BID-W/MEALS 12/23/16 06/30/19 Topiramate [Topamax] 30 mg PO BID-W/MEALS 12/23/16 06/30/19 Allergies Allergy/AdvReac Type Severity Reaction Status Date / Time No Known Allergies Allergy Verified 06/30/19 12:21 Review of Systems ROS Statement: Those systems with pertinent positive or pertinent negative responses have been documented in the HPI. ROS Other: All systems not noted in ROS Statement are negative. 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 History of Any Multi-Drug Resistant Organisms: None Reported Past Surgical History: No Surgical Hx Reported Additional Past Anesthesia/Blood Transfusion Reaction / Comment(s): Pt has never had surgery. Past Psychological History: No Psychological Hx Reported Smoking Status: Never smoker Past Alcohol Use History: None Reported Past Drug Use History: None Reported - Past Family History Mother Family Medical History: No Reported History Father Additional Family Medical History / Comment(s): Father has some joint problems and has had bilateral hip and knee replacements.spondolytis General Exam Limitations: physical limitation General appearance: alert, in no apparent distress Head exam: Present: atraumatic, normocephalic, normal inspection Eye exam: Present: normal appearance, EOMI. Absent: scleral icterus, conjunctival injection, periorbital swelling ENT exam: Present: normal exam, mucous membranes moist Neck exam: Present: normal inspection. Absent: tenderness, meningismus, lymphadenopathy Respiratory exam: Present: normal lung sounds bilaterally. Absent: respiratory distress, wheezes, rales, rhonchi, stridor Cardiovascular Exam: Present: regular rate, normal rhythm, normal heart sounds. Absent: systolic murmur, diastolic murmur, rubs, gallop, clicks GI/Abdominal exam: Present: soft, normal bowel sounds. Absent: distended, tenderness, guarding, rebound, rigid Extremities exam: Present: normal inspection, full ROM, normal capillary refill, other (Left lower extremity is contracted which is baseline does have significant edema of left lower extremity compared to the right swelling noted from the knee down to the foot). Absent: tenderness, pedal edema, joint swelling, calf tenderness Back exam: Present: normal inspection Neurological exam: Present: alert Psychiatric exam: Present: normal affect, normal mood Skin exam: Present: warm, dry, intact, normal color. Absent: rash Course Vital Signs 06/30/19 06/30/19 12:13 13:53 Temperature 97.0 F L Pulse Rate 88 80 Respiratory 20 18 Rate Blood Pressure 125/105 119/87 O2 Sat by Pulse 95 96 Oximetry Medical Decision Making - Medical Decision Making 33 male the ER was significant left lower extremity edema no trauma noted. Patient does have acute versus chronic fracture of left knee but is not displaced not seek difficulty and would not cause the edema that he does have ultrasound negative for DVT, patient will return if symptoms worsen or redness develops - Radiology Data Radiology results: report reviewed (Ultrasound left lower extremity negative for DVT x-ray left lower extremity shows possible old fracture tibial plateau), image reviewed Disposition Clinical Impression: Edema of left lower extremity Disposition: HOME SELF-CARE Condition: Good Instructions (If sedation given, give patient instructions): Leg Edema (ED) Is patient prescribed a controlled substance at d/c from ED?: No Referrals: Iveth Ramirez MD [Primary Care Provider] - 1-2 days
--- NOTE | 2019-06-30 13:51 | US ---
EXAMINATION TYPE: US venous doppler duplex LE LT DATE OF EXAM: 06/30/2019 1:36 PM COMPARISON: NONE CLINICAL HISTORY: dvt. Left leg and foot swelling x 1 day. SIDE PERFORMED: Left TECHNIQUE: The lower extremity deep venous system is examined utilizing real time linear array sonog rehan with graded compression, doppler sonography and color-flow sonography. VESSELS IMAGED: Exam is technically limited due to rigid flexed legs. Common Femoral Vein Deep Femoral Vein Greater Saphenous Vein * Femoral Vein: distal Femoral Vein not well seen in TR view, but patency is documented Popliteal Vein Small Saphenous Vein * Proximal Calf Veins (* superficial vessels) Grayscale, color doppler, spectral doppler imaging performed of the deep veins of the left lower extr emity. There is normal flow, compressibility, vascular waveforms. Left Leg: Negative for DVT. Ankle edema channels are noted. IMPRESSION: No sonographic evidence of deep venous thrombosis within the left lower extremity. Subcu taneous edema is noted dependently.
[2019-06-30 13:54] VITALS: RESP 18
--- NOTE | 2019-06-30 14:28 | XR ---
EXAMINATION TYPE: XR knee limited LT, XR tibia fibula LT DATE OF EXAM: 06/30/2019 CLINICAL HISTORY: Nontraumatic left lower extremity pain and swelling TECHNIQUE: Three views of the left knee are obtained. 2 views of the left tibia and fibula. COMPARISON: None. FINDINGS: There is a cortical step-off of the medial tibial plateau and approximately 1 mm depressio n of the medial tibial plateau. There is diffuse subcutaneous edema the left lower extremity however this is most focal medially with thickening in the region of the medial collateral ligament. Protuber ant osteophyte is seen of the lateral femoral condyle. Small joint effusion is noted in the suprapate llar joint space. Fabella is seen. Remainder of the tibia and fibula are unremarkable. No radiopaque foreign body. IMPRESSION: Age-indeterminate fracture of the medial tibial plateau. Although this appears acute radi ographically there is no known injury and therefore this could be subacute and nonhealing. Soft tissu e swelling is most pronounced over the medial compartment with small suprapatellar joint effusion als o seen.
--- NOTE | 2019-06-30 14:29 | XR ---
Left hip HISTORY: Edema 2 views of left hip There is artifact present. Bone mineralization is reduced. There is no fracture or dislocation eviden t. Question slight valgus deformity. IMPRESSION: Exam is somewhat limited. Decreased bone mineralization. Suspect underlying valgus deform ity.
--- NOTE | 2019-06-30 14:32 | XR ---
EXAMINATION TYPE: XR ankle limited LT DATE OF EXAM: 06/30/2019 CLINICAL HISTORY: Left lower extremity edema with no known injury. Severe pain. TECHNIQUE: Frontal and lateral images of the left ankle are obtained. COMPARISON: None. FINDINGS: There is no acute fracture/dislocation evident in the left ankle. The ankle mortise appea rs within normal limits. Nonspecific lower extremity edema is seen throughout. IMPRESSION: There is no acute fracture or dislocation in the left ankle. Lower extremity edema.
[2019-06-30 15:23] VITALS: BP 127/87; PULSE 92; TEMP 97.4
== END 2019-06-30 15:32 | disposition home or self-care (01) ==
LOC: EC 12:06
DX: R60.0 Localized edema (principal); M25.559 Pain in unspecified hip; G40.909 Epilepsy, unspecified, not intractable, without status epilepticus; Z79.899 Other long term (current) drug therapy; Z99.3 Dependence on wheelchair
CPT/HCPCS: 73502; 99284

== ENCOUNTER 2020-06-30 12:59 | Emergency (ER) | payer BC, MEDICARE, OTHER ==
[2020-06-30 13:24] VITALS: TEMP 97.9
[2020-06-30] MEDS ORDERED: KETOROLAC 15 MG/ML 1 ML VIAL IVP STA (13:29)
[2020-06-30 14:02] LABS: Anisocytosis Slight; Basophils # (A) 0.1 k/uL (0-0.2); Basophils % (A) 0 %; Eosinophils # (A) 0.1 k/uL (0-0.7); Eosinophils % (A) 1 %; HCT 38.9 % (39.0-53.0); HGB 11.9 gm/dL (13.0-17.5); Hypochromasia Slight; Lymphocytes # (A) 2.6 k/uL (1.0-4.8); Lymphocytes % (A) 24 %; MCH 25.9 pg (25.0-35.0); MCHC 30.5 g/dL (31.0-37.0); MCV 85.1 fL (80.0-100.0); Mean Platelet Volume 7.6; Microcytosis Slight; Monocytes # (A) 1.1 k/uL (0-1.0); Monocytes % (A) 10 %; Neutrophils # (A) 6.9 k/uL (1.3-7.7); Neutrophils % (A) 63 %; Platelet Count 244 k/uL (150-450); RBC 4.58 m/uL (4.30-5.90); RDW 19.1 % (11.5-15.5); WBC 10.9 k/uL (3.8-10.6)
[2020-06-30 14:15] LABS: ALT 10 U/L (4-49); AST 34 U/L (17-59); African American GFR (CKD) >90 (>60 ml/min/1.73 sqM); Albumin 4.1 g/dL (3.5-5.0); Alkaline Phosphatase 90 U/L (38-126); Anion Gap 10 mmol/L; Blood Urea Nitrogen 13 mg/dL (9-20); Calcium 9.3 mg/dL (8.4-10.2); Carbon Dioxide 25 mmol/L (22-30); Chloride 105 mmol/L (98-107); Glucose 134 mg/dL (74-99); Non-African American GFR(CKD) >90 (>60 ml/min/1.73 sqM); Sodium 140 mmol/L (137-145); Total Bilirubin 0.5 mg/dL (0.2-1.3); Total Protein 7.8 g/dL (6.3-8.2)
[2020-06-30] MEDS ORDERED: cefTRIAXone IN SWFI 1,000 MG/10 ML SYRINGE IVP STA (14:18)
[2020-06-30 14:22] LABS: Potassium 5.3 mmol/L (3.5-5.1)
--- NOTE | 2020-06-30 14:22 | XR ---
EXAMINATION TYPE: XR forearm RT DATE OF EXAM: 06/30/2020 COMPARISON: NONE HISTORY: Arm swelling TECHNIQUE: 2 views FINDINGS: Radius and ulna appear intact. There is subcutaneous edema around the right arm. Wrist join t appears intact. Elbow joint is intact. IMPRESSION: Soft tissue swelling. No fracture.
--- NOTE | 2020-06-30 14:24 | XR ---
EXAMINATION TYPE: XR humerus RT DATE OF EXAM: 06/30/2020 COMPARISON: NONE HISTORY: Arm swelling TECHNIQUE: 2 views FINDINGS: I see no fracture nor dislocation. Shoulder joint and elbow joint appear intact. There is s ubcutaneous edema around the arm. IMPRESSION: Subcutaneous edema. No fracture seen. Osteopenia.
--- NOTE | 2020-06-30 15:32 | US ---
EXAMINATION TYPE: US venous doppler duplex UE RT DATE OF EXAM: 06/30/2020 COMPARISON: NONE CLINICAL HISTORY: swelling. Redness. Very limited exam- patient is wheelchair bound, non-verbal, ment ally challenged SIDE PERFORMED: Right Right Arm: Appears negative for DVT as visualized There is patency of the jugular subclavian axillary and brachial vein. IMPRESSION: No evidence of deep vein thrombosis in the right arm.
--- NOTE | 2020-06-30 16:44 | ED ---
Upper Extremity HPI - General Source: family Mode of arrival: wheelchair Limitations: altered mental status, physical limitation <Sandra Rosales - Last Filed: 06/30/20 17:38> <Sarahy Cadleron - Last Filed: 07/01/20 13:06> - General Chief Complaint: Extremity Injury, Upper Stated Complaint: Right Arm Swollen Time Seen by Provider: 06/30/20 13:25 - History of Present Illness Initial Comments: 34yo male presenting today for chief complaint of right arm swelling. Patient mother is providing history she states the patient is nonverbal and immobilized she has limited range of motion of the upper extremities. She states the patient has had this swelling before that is she is noting in the right arm on the left leg before this is secondary to patient compressing that side too much from lying down she states that she has noticed that the patient has been lying down more at his long-term than usual and he lies on his right side she gets his right arm has been swollen since Thursday she denies any significant redness she states it does feel warm. She denies noting any bruising or signs of injury. When swelling persisted and patient appeared in pain today they present to the ER for further evaluation. Mother denies noting additional complaints (Sandra Rosales) - Related Data Home Medications Medication Instructions Recorded Confirmed Cholecalciferol [Vitamin D3 (25 1,000 unit PO DAILY 12/23/16 06/30/19 Mcg = 1000 Iu)] Divalproex Sprinkle [Depakote 750 mg PO BID-W/MEALS 12/23/16 06/30/19 Sprinkle] LORazepam [Ativan] 1.5 mg PO BID-W/MEALS 12/23/16 06/30/19 Topiramate [Topamax] 30 mg PO BID-W/MEALS 12/23/16 06/30/19 Allergies Allergy/AdvReac Type Severity Reaction Status Date / Time No Known Allergies Allergy Verified 06/30/19 12:21 Review of Systems ROS Other: All systems not noted in ROS Statement are negative. <Sandra Rosales - Last Filed: 06/30/20 17:38> ROS Other: All systems not noted in ROS Statement are negative. <Sarahy Calderon - Last Filed: 07/01/20 13:06> ROS Statement: Those systems with pertinent positive or pertinent negative responses have been documented in the HPI. 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 History of Any Multi-Drug Resistant Organisms: None Reported Past Surgical History: No Surgical Hx Reported Additional Past Anesthesia/Blood Transfusion Reaction / Comment(s): Pt has never had surgery. Past Psychological History: No Psychological Hx Reported Smoking Status: Never smoker Past Alcohol Use History: None Reported Past Drug Use History: None Reported - Past Family History Mother Family Medical History: No Reported History Father Additional Family Medical History / Comment(s): Father has some joint problems and has had bilateral hip and knee replacements.spondolytis <Sandra Rosales - Last Filed: 06/30/20 17:38> General Exam Limitations: altered mental status, physical limitation <Sandra Rosales - Last Filed: 06/30/20 17:38> - General Exam Comments Initial Comments: General: The patient is awake and alert, in no distress, nonverbal, wheel chair bound Eye: +3 mm pupils are equal, round and reactive to light, extra-ocular m ovements are intact. No nystagmus. There is normal conjunctiva bilaterally. No signs of icterus. Ears, nose, mouth and throat: There are moist mucous membranes and no oral lesions. Neck: The neck is supple, there is no tenderness or JVD. Cardiovascular: There is a regular rate and rhythm. No murmur, rub or gallop is appreciated. Respiratory: Lungs are clear to auscultation, respirations are non-labored, breath sounds are equal. No wheezes, stridor, rales, or rhonchi. Gastrointestinal: Soft, non-distended, non-tender abdomen without masses or organomegaly noted. There is no rebound or guarding present. Musculoskeletal: Swollen right arm in flexed position, warm to touch but not read, no vesciular lesions or blistering, no bruising, compartment compressible. Sensation intact. radial pulses equal bilaterally 2+. Neurological: A&O x 3. CN II-XII intact grossly, There are no obvious motor or sensory deficits. Coordination appears grossly intact. Speech is normal. Skin: Skin is warm and dry and no rashes or lesions are noted. Psychiatric: Cooperative, appropriate mood & affect, normal judgment. (Sandra Rosales) Course Vital Signs 06/30/20 06/30/20 13:19 16:57 Temperature 97.9 F Pulse Rate 100 80 Respiratory 18 16 Rate Blood Pressure 158/109 131/98 O2 Sat by Pulse 95 98 Oximetry Medical Decision Making - Lab Data Result diagrams: 06/30/20 13:28 06/30/20 13:28 <Sandra Rosales - Last Filed: 06/30/20 17:38> - Lab Data Result diagrams: 06/30/20 13:28 06/30/20 13:28 <Sarahy Calderon - Last Filed: 07/01/20 13:06> - Medical Decision Making labs stable. CK and lactic within reasonable limits. No significant elevation. Compartments compressible no obvious signs of infection, no redness no leukocytosis. Patient evaluated by attending provider Dr Calderon who feels this is most likely related to compression as this has happened in past with increased time in bed and patient always sleeps on right side. Patient caretakers are to avoid right arm pressure, and watch for redness/increasing swelling. mother is agreeable to care plan and discharge. (Sandra Rosales) I was available for consultation in the emergency department. The history and physical exam were done by the midlevel provider. I was consulted for this patients care. I reviewed the case with the midlevel provider and based on their presentation of the patient, I agree with the assessment, medical decision making and plan of care as documented. I evaluated the patient myself. Compartments remain compressible. Recommended ice, elevation and pressure off the affected limb. Mother understood and agreed to plan. Return for any new or worsening symptoms. Chart was dictated using [employer] dictation software. Attempts were made to correct any dictation errors however some typographical errors may persist. Patient was seen during a national state of emergency due to the Covid-19 pandemic. (Sarahy Calderon) - Lab Data Lab Results 06/30/20 06/30/20 06/30/20 Range/Units 13:28 13:28 13: WBC 10.9 H (3.8-10.6) k/uL RBC 4.58 (4.30-5.90) m/uL Hgb 11.9 L (13.0-17.5) gm/dL Hct 38.9 L (39.0-53.0) % MCV 85.1 (80.0-100.0) fL MCH 25.9 (25.0-35.0) pg MCHC 30.5 L (31.0-37.0) g/dL RDW 19.1 H (11.5-15.5) % Plt Count 244 (150-450) k/uL Neutrophils % 63 % Lymphocytes % 24 % Monocytes % 10 % Eosinophils % 1 % Basophils % 0 % Neutrophils # 6.9 (1.3-7.7) k/uL Lymphocytes # 2.6 (1.0-4.8) k/uL Monocytes # 1.1 H (0-1.0) k/uL Eosinophils # 0.1 (0-0.7) k/uL Basophils # 0.1 (0-0.2) k/uL Hypochromasia Slight Anisocytosis Slight Microcytosis Slight Sodium 140 (137-145) mmol/L Potassium 5.3 H (3.5-5.1) mmol/L Chloride 105 (98-107) mmol/L Carbon Dioxide 25 (22-30) mmol/L Anion Gap 10 mmol/L BUN 13 (9-20) mg/dL Creatinine 0.62 L (0.66-1.25) mg/dL Est GFR (CKD-EPI)AfAm >90 (>60 ml/min/1.73 sqM) Est GFR (CKD-EPI)NonAf >90 (>60 ml/min/1.73 sqM) Glucose 134 H (74-99) mg/dL Plasma Lactic Acid Arian 1.6 (0.7-2.0) mmol/L Calcium 9.3 (8.4-10.2) mg/dL Total Bilirubin 0.5 (0.2-1.3) mg/dL AST 34 (17-59) U/L ALT 10 (4-49) U/L Alkaline Phosphatase 90 (38-126) U/L Creatine Kinase (55-170) U/L Total Protein 7.8 (6.3-8.2) g/dL Albumin 4.1 (3.5-5.0) g/dL 06/30/20 Range/Units 13:28 WBC (3.8-10.6) k/uL RBC (4.30-5.90) m/uL Hgb (13.0-17.5) gm/dL Hct (39.0-53.0) % MCV (80.0-100.0) fL MCH (25.0-35.0) pg MCHC (31.0-37.0) g/dL RDW (11.5-15.5) % Plt Count (150-450) k/uL Neutrophils % % Lymphocytes % % Monocytes % % Eosinophils % % Basophils % % Neutrophils # (1.3-7.7) k/uL Lymphocytes # (1.0-4.8) k/uL Monocytes # (0-1.0) k/uL Eosinophils # (0-0.7) k/uL Basophils # (0-0.2) k/uL Hypochromasia Anisocytosis Microcytosis Sodium (137-145) mmol/L Potassium (3.5-5.1) mmol/L Chloride (98-107) mmol/L Carbon Dioxide (22-30) mmol/L Anion Gap mmol/L BUN (9-20) mg/dL Creatinine (0.66-1.25) mg/dL Est GFR (CKD-EPI)AfAm (>60 ml/min/1.73 sqM) Est GFR (CKD-EPI)NonAf (>60 ml/min/1.73 sqM) Glucose (74-99) mg/dL Plasma Lactic Acid Arian (0.7-2.0) mmol/L Calcium (8.4-10.2) mg/dL Total Bilirubin (0.2-1.3) mg/dL AST (17-59) U/L ALT (4-49) U/L Alkaline Phosphatase (38-126) U/L Creatine Kinase 271 H (55-170) U/L Total Protein (6.3-8.2) g/dL Albumin (3.5-5.0) g/dL Disposition Is patient prescribed a controlled substance at d/c from ED?: No Time of Disposition: 16:43 <Sandra Rosales - Last Filed: 06/30/20 17:38> <Sarahy Calderon - Last Filed: 07/01/20 13:06> Clinical Impression: Edema of right upper arm Disposition: HOME SELF-CARE Condition: Good Additional Instructions: Please use medication as discussed. Please follow-up with family doctor in the next 2 days. Please avoid direct pressure on the right arm, frequent body positioning changes and getting patient out of bed more often. Watch for redness or increasing swelling, administer tylenol and ibuprofen as needed for discomfort. Please return to emergency room if the symptoms increase or worsen or for any other concerns. Referrals: Iveth Ramirez MD [Primary Care Provider] - 1-2 days
[2020-06-30 17:03] VITALS: BP 131/98; PULSE 80; RESP 16
== END 2020-06-30 17:06 | disposition home or self-care (01) ==
LOC: EC 12:59
DX: R60.0 Localized edema (principal); G40.909 Epilepsy, unspecified, not intractable, without status epilepticus; Z79.899 Other long term (current) drug therapy
CPT/HCPCS: 36415; 80053; 82550; 83605; 85025; 73060; 73090; 93971; 99284; J0696; J1885

== ENCOUNTER 2021-11-17 23:49 | Inpatient (IN) | payer BC, MEDICARE, OTHER ==
[2021-11-18] MEDS ORDERED: SODIUM CHLORIDE 0.9% 500 ML 500 ML IV ONE (00:03)
[2021-11-18 00:12] LABS: Glucose,Whole Blood 78 mg/dL (75-99)
[2021-11-18 00:12] LABS: Glucose,Whole Blood 77 mg/dL (75-99)
[2021-11-18] MEDS ORDERED: DEXTROSE 50% SYRINGE 50 ML IVP STA ×2 (00:14→05:00)
[2021-11-18] MEDS ORDERED: IPRATROPIUM-ALBUTEROL 3 ML NEB INHALATION STA (00:16)
[2021-11-18] MEDS ORDERED: SODIUM CHLORIDE 0.9% 1,000 ML IV ONE ×2 (00:32→17:38)
--- NOTE | 2021-11-18 01:00 | XR ---
EXAMINATION TYPE: XR chest 1V portable DATE OF EXAM: 11/18/2021 COMPARISON: 12/30/2016 HISTORY: Altered mental status TECHNIQUE: Single view FINDINGS: There is pulmonary interstitial and airspace edema. Heart is enlarged. There are chest lead s. There is some blunting of the costophrenic angles. IMPRESSION: There is pulmonary edema which is mostly new compared to old exam. This could be acute co ngestive heart failure. Left lower lobe pneumonia is also possible.
[2021-11-18 01:02] LABS: ALT 12 U/L (4-49); AST 35 U/L (17-59); African American GFR (CKD) >90 (>60 ml/min/1.73 sqM); Albumin 3.3 g/dL (3.5-5.0); Alkaline Phosphatase 202 U/L (38-126); Anion Gap 10 mmol/L; Blood Urea Nitrogen 38 mg/dL (9-20); Calcium 9.7 mg/dL (8.4-10.2); Carbon Dioxide 37 mmol/L (22-30); Chloride 101 mmol/L (98-107); Glucose 83 mg/dL (74-99); Non-African American GFR(CKD) >90 (>60 ml/min/1.73 sqM); Potassium 4.1 mmol/L (3.5-5.1); Sodium 148 mmol/L (137-145); Total Bilirubin 0.6 mg/dL (0.2-1.3); Total Protein 7.9 g/dL (6.3-8.2)
[2021-11-18 01:13] LABS: ABG Base Excess 8.4 mmol/L; ABG HCO3 34 mmol/L (21-25); ABG Oxygen Saturation 86.6 % (94-97); ABG PCO2 61 mmHg (35-45); ABG PH 7.35 (7.35-7.45); ABG TCO2 36 mmol/L (19-24); Allen Test Performed? Yes
[2021-11-18 01:19] LABS: Valproic Acid (Depakene) 124.4 ug/mL
[2021-11-18 01:21] LABS: Anisocytosis Moderate; HCT 30.6 % (39.0-53.0); HGB 9.4 gm/dL (13.0-17.5); Hypochromasia Marked; INR 1.3 (<1.2); MCH 26.7 pg (25.0-35.0); MCHC 30.9 g/dL (31.0-37.0); MCV 86.7 fL (80.0-100.0); Mean Platelet Volume 8.9; Microcytosis Slight; Partial Thromboplastin Time 31.4 sec (22.0-30.0); Poikilocytosis Slight; Prothrombin Time 13.7 sec (9.0-12.0); RBC 3.53 m/uL (4.30-5.90)
[2021-11-18 01:25] LABS: Platelet Count 76 k/uL (150-450)
--- NOTE | 2021-11-18 01:28 | ED ---
SOB HPI - General Chief Complaint: Shortness of Breath Stated Complaint: Altered Mental Source: EMS Mode of arrival: EMS - History of Present Illness Initial Comments: 36-year-old male with past medical history of developmental delay, seizure disorder, mental impairment due to meningitis with brain injury 7 weeks old who [facility] emergency [facility]. EMS was called for respiratory distress and altered mental status. They state that 30 minutes prior to their evaluation the patient was acting normal. They state that he then had progressive shortness of breath and Lethargy. Patient normally alert however nonverbal. He did swab him for covid at the home and it was negative. He is vaccinated. EMS arrived to find the patient cold to the touch. His oxygenation was only 60%. He has no previous history of pulmonary disease or heart failure. Patient arrives on a nonrebreather, lethargic. Mother brought back and states that he has had a decreased appetite over the past couple of days. Remainder of HPI is limited - Related Data Home Medications Medication Instructions Recorded Confirmed Cholecalciferol [Vitamin D3 (25 1,000 unit PO DAILY 12/23/16 06/30/19 Mcg = 1000 Iu)] Divalproex Sprinkle [Depakote 750 mg PO BID-W/MEALS 12/23/16 06/30/19 Sprinkle] LORazepam [Ativan] 1.5 mg PO BID-W/MEALS 12/23/16 06/30/19 Topiramate [Topamax] 30 mg PO BID-W/MEALS 12/23/16 06/30/19 Allergies Allergy/AdvReac Type Severity Reaction Status Date / Time No Known Allergies Allergy Verified 06/30/19 12:21 Review of Systems ROS Statement: Those systems with pertinent positive or pertinent negative responses have been documented in the HPI. ROS Other: All systems not noted in ROS Statement are negative. 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 History of Any Multi-Drug Resistant Organisms: None Reported Past Surgical History: No Surgical Hx Reported Additional Past Anesthesia/Blood Transfusion Reaction / Comment(s): Pt has never had surgery. Past Psychological History: No Psychological Hx Reported Smoking Status: Never smoker Past Alcohol Use History: None Reported Past Drug Use History: None Reported - Past Family History Mother Family Medical History: No Reported History Father Additional Family Medical History / Comment(s): Father has some joint problems and has had bilateral hip and knee replacements.spondolytis Course Vital Signs 11/18/21 11/18/21 11/18/21 00:12 00:14 00:17 Temperature 87 F L Pulse Rate 61 56 L Respiratory 30 H 20 49 H Rate Blood Pressure 92/46 102/58 O2 Sat by Pulse 85 L 75 L Oximetry 11/18/21 11/18/21 11/18/21 00:30 00:38 01:48 Temperature 89 F L Pulse Rate 75 56 L 57 L Respiratory 67 H 60 H 70 H Rate Blood Pressure 102/58 88/60 O2 Sat by Pulse 84 L 97 Oximetry Medical Decision Making - Medical Decision Making Upon arrival the patient is promptly placed in a trauma bay 4. He is on a nonrebreather. Pulse ox is found to be 75%. IV access was established by ultrasound guidance. Laboratory studies were conducted. Hemoglobin 9.4. Platelets 76. INR 1.3. Sodium 148. Troponin 0.055. Valproic acid is 124.4. Avandia 8. He is given a half amp of dextrose, 1500 mL of normal saline followed by 130 mL per hour. Patient swabbed for covid which is not detected. Due to the patient's low pulse ox he is placed on BiPAP. We did speak with the mother in regards to the patient's wishes. States that they do agree to antibiotics, IV and BiPAP however patient is DO NOT RESUSCITATE, DO NOT INT UBATE, no vasopressors or cardioversion. X-ray demonstrates significant infiltrate to the left lung. Blood cultures obtained and patient initiated on Rocephin and azithromycin. I did speak with Dr. Ramirez who agreed to admit the patient. I will place pulmonology on consult. Patient remained in stable condition with guarded prognosis - Lab Data Result diagrams: 11/18/21 00:03 11/18/21 00:03 Lab Results 11/18/21 11/18/21 11/18/21 Range/Units 00:03 00:03 00:03 WBC 5.7 (3.8-10.6) k/uL RBC 3.53 L (4.30-5.90) m/uL Hgb 9.4 L (13.0-17.5) gm/dL Hct 30.6 L (39.0-53.0) % MCV 86.7 (80.0-100.0) fL MCH 26.7 (25.0-35.0) pg MCHC 30.9 L (31.0-37.0) g/dL RDW 22.0 H (11.5-15.5) % Plt Count 76 L (150-450) k/uL MPV 8.9 Neutrophils % (Manual) 21 % Band Neuts % (Manual) 23 % Lymphocytes % (Manual) 33 % Monocytes % (Manual) 15 % Eosinophils % (Manual) 2 % Metamyelocytes % 6 % Neutrophils # (Manual) 2.50 (1.3-7.7) k/uL Lymphocytes # (Manual) 1.88 (1.0-4.8) k/uL Monocytes # (Manual) 0.86 (0-1.0) k/uL Eosinophils # (Manual) 0.11 (0-0.7) k/uL Metamyelocytes # (Man) 0.34 H (0) k/uL Nucleated RBCs 10 H (0-0) /100 WBC Manual Slide Review Performed Polychromasia Present Hypochromasia Marked Poikilocytosis Slight Anisocytosis Moderate Anisocytosis (manual) Present Microcytosis Slight PT 13.7 H (9.0-12.0) sec INR 1.3 H (<1.2) APTT 31.4 H (22.0-30.0) sec Sample Site ABG pH (7.35-7.45) ABG pCO2 (35-45) mmHg ABG pO2 (83-108) mmHg ABG HCO3 (21-25) mmol/L ABG Total CO2 (19-24) mmol/L ABG O2 Saturation (94-97) % ABG Base Excess mmol/L Gerard Test FiO2 % Sodium 148 H (137-145) mmol/L Potassium 4.1 (3.5-5.1) mmol/L Chloride 101 (98-107) mmol/L Carbon Dioxide 37 H (22-30) mmol/L Anion Gap 10 mmol/L BUN 38 H (9-20) mg/dL Creatinine 0.78 (0.66-1.25) mg/dL Est GFR (CKD-EPI)AfAm >90 (>60 ml/min/1.73 sqM) Est GFR (CKD-EPI)NonAf >90 (>60 ml/min/1.73 sqM) Glucose 83 (74-99) mg/dL POC Glucose (mg/dL) (75-99) mg/dL POC Glu Chief Chemist ID Plasma Lactic Acid Arian (0.7-2.0) mmol/L Calcium 9.7 (8.4-10.2) mg/dL Total Bilirubin 0.6 (0.2-1.3) mg/dL AST 35 (17-59) U/L ALT 12 (4-49) U/L Alkaline Phosphatase 202 H (38-126) U/L Ammonia (<30) umol/L Troponin I (0.000-0.034) ng/mL NT-Pro-B Natriuret Pep pg/mL Total Protein 7.9 (6.3-8.2) g/dL Albumin 3.3 L (3.5-5.0) g/dL Valproic Acid 124.4 H* ug/mL Coronavirus (PCR) (Not Detectd) 11/18/21 11/18/21 11/18/21 Range/Units 00:03 00:03 00:04 WBC (3.8-10.6) k/uL RBC (4.30-5.90) m/uL Hgb (13.0-17.5) gm/dL Hct (39.0-53.0) % MCV (80.0-100.0) fL MCH (25.0-35.0) pg MCHC (31.0-37.0) g/dL RDW (11.5-15.5) % Plt Count (150-450) k/uL MPV Neutrophils % (Manual) % Band Neuts % (Manual) % Lymphocytes % (Manual) % Monocytes % (Manual) % Eosinophils % (Manual) % Metamyelocytes % % Neutrophils # (Manual) (1.3-7.7) k/uL Lymphocytes # (Manual) (1.0-4.8) k/uL Monocytes # (Manual) (0-1.0) k/uL Eosinophils # (Manual) (0-0.7) k/uL Metamyelocytes # (Man) (0) k/uL Nucleated RBCs (0-0) /100 WBC Manual Slide Review Polychromasia Hypochromasia Poikilocytosis Anisocytosis Anisocytosis (manual) Microcytosis PT (9.0-12.0) sec INR (<1.2) APTT (22.0-30.0) sec Sample Site ABG pH (7.35-7.45) ABG pCO2 (35-45) mmHg ABG pO2 (83-108) mmHg ABG HCO3 (21-25) mmol/L ABG Total CO2 (19-24) mmol/L ABG O2 Saturation (94-97) % ABG Base Excess mmol/L Gerard Test FiO2 % Sodium (137-145) mmol/L Potassium (3.5-5.1) mmol/L Chloride (98-107) mmol/L Carbon Dioxide (22-30) mmol/L Anion Gap mmol/L BUN (9-20) mg/dL Creatinine (0.66-1.25) mg/dL Est GFR (CKD-EPI)AfAm (>60 ml/min/1.73 sqM) Est GFR (CKD-EPI)NonAf (>60 ml/min/1.73 sqM) Glucose (74-99) mg/dL POC Glucose (mg/dL) (75-99) mg/dL POC Glu Chief Chemist ID Plasma Lactic Acid Arian (0.7-2.0) mmol/L Calcium (8.4-10.2) mg/dL Total Bilirubin (0.2-1.3) mg/dL AST (17-59) U/L ALT (4-49) U/L Alkaline Phosphatase (38-126) U/L Ammonia 11 (<30) umol/L Troponin I 0.055 H* (0.000-0.034) ng/mL NT-Pro-B Natriuret Pep 384 pg/mL Total Protein (6.3-8.2) g/dL Albumin (3.5-5.0) g/dL Valproic Acid ug/mL Coronavirus (PCR) (Not Detectd) 11/18/21 11/18/21 11/18/21 Range/Units 00:09 00:10 00:38 WBC (3.8-10.6) k/uL RBC (4.30-5.90) m/uL Hgb (13.0-17.5) gm/dL Hct (39.0-53.0) % MCV (80.0-100.0) fL MCH (25.0-35.0) pg MCHC (31.0-37.0) g/dL RDW (11.5-15.5) % Plt Count (150-450) k/uL MPV Neutrophils % (Manual) % Band Neuts % (Manual) % Lymphocytes % (Manual) % Monocytes % (Manual) % Eosinophils % (Manual) % Metamyelocytes % % Neutrophils # (Manual) (1.3-7.7) k/uL Lymphocytes # (Manual) (1.0-4.8) k/uL Monocytes # (Manual) (0-1.0) k/uL Eosinophils # (Manual) (0-0.7) k/uL Metamyelocytes # (Man) (0) k/uL Nucleated RBCs (0-0) /100 WBC Manual Slide Review Polychromasia Hypochromasia Poikilocytosis Anisocytosis Anisocytosis (manual) Microcytosis PT (9.0-12.0) sec INR (<1.2) APTT (22.0-30.0) sec Sample Site ABG pH (7.35-7.45) ABG pCO2 (35-45) mmHg ABG pO2 (83-108) mmHg ABG HCO3 (21-25) mmol/L ABG Total CO2 (19-24) mmol/L ABG O2 Saturation (94-97) % ABG Base Excess mmol/L Gerard Test FiO2 % Sodium (137-145) mmol/L Potassium (3.5-5.1) mmol/L Chloride (98-107) mmol/L Carbon Dioxide (22-30) mmol/L Anion Gap mmol/L BUN (9-20) mg/dL Creatinine (0.66-1.25) mg/dL Est GFR (CKD-EPI)AfAm (>60 ml/min/1.73 sqM) Est GFR (CKD-EPI)NonAf (>60 ml/min/1.73 sqM) Glucose (74-99) mg/dL POC Glucose (mg/dL) 77 78 (75-99) mg/dL POC Glu Chief Chemist Leandro Mccurdy Robin Plasma Lactic Acid Arian (0.7-2.0) mmol/L Calcium (8.4-10.2) mg/dL Total Bilirubin (0.2-1.3) mg/dL AST (17-59) U/L ALT (4-49) U/L Alkaline Phosphatase (38-126) U/L Ammonia (<30) umol/L Troponin I (0.000-0.034) ng/mL NT-Pro-B Natriuret Pep pg/mL Total Protein (6.3-8.2) g/dL Albumin (3.5-5.0) g/dL Valproic Acid ug/mL Coronavirus (PCR) Not Detected (Not Detectd) 11/18/21 11/18/21 Range/Units 01:10 02:06 WBC (3.8-10.6) k/uL RBC (4.30-5.90) m/uL Hgb (13.0-17.5) gm/dL Hct (39.0-53.0) % MCV (80.0-100.0) fL MCH (25.0-35.0) pg MCHC (31.0-37.0) g/dL RDW (11.5-15.5) % Plt Count (150-450) k/uL MPV Neutrophils % (Manual) % Band Neuts % (Manual) % Lymphocytes % (Manual) % Monocytes % (Manual) % Eosinophils % (Manual) % Metamyelocytes % % Neutrophils # (Manual) (1.3-7.7) k/uL Lymphocytes # (Manual) (1.0-4.8) k/uL Monocytes # (Manual) (0-1.0) k/uL Eosinophils # (Manual) (0-0.7) k/uL Metamyelocytes # (Man) (0) k/uL Nucleated RBCs (0-0) /100 WBC Manual Slide Review Polychromasia Hypochromasia Poikilocytosis Anisocytosis Anisocytosis (manual) Microcytosis PT (9.0-12.0) sec INR (<1.2) APTT (22.0-30.0) sec Sample Site Right Radial ABG pH 7.35 (7.35-7.45) ABG pCO2 61 H (35-45) mmHg ABG pO2 58 L* (83-108) mmHg ABG HCO3 34 H (21-25) mmol/L ABG Total CO2 36 H (19-24) mmol/L ABG O2 Saturation 86.6 L (94-97) % ABG Base Excess 8.4 mmol/L Gerard Test Yes FiO2 100 % Sodium (137-145) mmol/L Potassium (3.5-5.1) mmol/L Chloride (98-107) mmol/L Carbon Dioxide (22-30) mmol/L Anion Gap mmol/L BUN (9-20) mg/dL Creatinine (0.66-1.25) mg/dL Est GFR (CKD-EPI)AfAm (>60 ml/min/1.73 sqM) Est GFR (CKD-EPI)NonAf (>60 ml/min/1.73 sqM) Glucose (74-99) mg/dL POC Glucose (mg/dL) (75-99) mg/dL POC Glu Chief Chemist ID Plasma Lactic Acid Arian 2.6 H* (0.7-2.0) mmol/L Calcium (8.4-10.2) mg/dL Total Bilirubin (0.2-1.3) mg/dL AST (17-59) U/L ALT (4-49) U/L Alkaline Phosphatase (38-126) U/L Ammonia (<30) umol/L Troponin I (0.000-0.034) ng/mL NT-Pro-B Natriuret Pep pg/mL Total Protein (6.3-8.2) g/dL Albumin (3.5-5.0) g/dL Valproic Acid ug/mL Coronavirus (PCR) (Not Detectd) - EKG Data EKG Comments: EKG demonstrates a bradycardic rhythm with a rate of 59. QRS 97. QTC of 344. No acute ST segment elevations or depressions Disposition Clinical Impression: Pneumonia, Sepsis Disposition: ADMITTED IP TO THIS HOSP Condition: Serious Is patient prescribed a controlled substance at d/c from ED?: No Referrals: Iveth Ramirez MD [Primary Care Provider] - 1-2 days Decision to Admit Reason: Admit from EC Decision Date: 11/18/21 Decision Time: 02:23
[2021-11-18 01:45] LABS: ABG PO2 58 mmHg (83-108)
[2021-11-18] MEDS ORDERED: cefTRIAXone IN SWFI 1,000 MG/10 ML SYRINGE IVP STA (02:05)
[2021-11-18] MEDS ORDERED: AZITHROMYCIN 500 MG in SODIUM CHLORIDE 0.9% 250 ML IVPB STA (02:05)
[2021-11-18 02:12] LABS: Band Neutrophils % 23 %; Eosinophils # (M) 0.11 k/uL (0-0.7); Lymphocytes # (M) 1.88 k/uL (1.0-4.8); Metamyelocytes # (M) 0.34 k/uL (0); Metamyelocytes % 6 %; Monocytes # (M) 0.86 k/uL (0-1.0); Neutrophils % (M) 21 %; Nucleated Red Blood Cells 10 /100 WBC (0-0); Total Cells Counted 100; WBC 5.7 k/uL (3.8-10.6)
[2021-11-18 02:13] LABS: Anisocytosis (M) Present; Polychromasia Present
[2021-11-18] MEDS: SODIUM CHLORIDE 0.9% 1,000 ML IV SCH ×3 (02:52→23:44)
[2021-11-18] MEDS ORDERED: NALOXONE 0.4 MG/ML 1 ML VIAL IV PRN (02:55)
[2021-11-18] MEDS ORDERED: ACETAMINOPHEN SUPPOSITORY 650 MG SUPP RECTAL PRN (02:55)
[2021-11-18] MEDS ORDERED: LORazepam 2 MG/ML INJ IV STA (03:02)
[2021-11-18 05:04] LABS: Glucose,Whole Blood 60 mg/dL (75-99)
[2021-11-18 05:37] LABS: Glucose,Whole Blood 273 mg/dL (75-99)
[2021-11-18 06:01] LABS: Glucose,Whole Blood 184 mg/dL (75-99)
[2021-11-18 06:56] LABS: Appearance,Urine Clear (Clear); Bilirubin,Urine Negative (Negative); Blood,Urine Negative (Negative); Color,Urine Yellow; Glucose,Urine (UA) 3+ (Negative); Ketones,Urine Negative (Negative); Leukocyte Esterase,Urine Negative (Negative); Nitrite,Urine Negative (Negative); Protein,Urine Trace (Negative); Specific Gravity,Urine 1.019 (1.001-1.035); Urobilinogen,Urine <2.0 mg/dL (<2.0)
[2021-11-18] MEDS: DEXTROSE 5%-0.9% NACL 1,000 ML IV SCH (07:11)
[2021-11-18 08:55] LABS: Glucose,Whole Blood 43 mg/dL (75-99)
[2021-11-18 08:58] LABS: Glucose,Whole Blood 44 mg/dL (75-99)
[2021-11-18] MEDS: PIPERACILLIN-TAZOBACTAM 3.375 GM in SODIUM CHLORIDE 0.9% 100 ML IVPB SCH ×3 (09:00→23:45)
[2021-11-18] MEDS ORDERED: diphenhydrAMINE ELIXIR 25 MG/10 ML CUP PO PRN (09:34)
[2021-11-18] MEDS ORDERED: ACETAMINOPHEN TAB 500 MG TAB PO PRN (09:34)
[2021-11-18] MEDS ORDERED: IBUPROFEN 200 MG TAB PO PRN (09:34)
[2021-11-18] MEDS ORDERED: guaiFENesin-DM 100-10MG/5ML 10 ML CUP PO PRN (09:34)
[2021-11-18] MEDS ORDERED: diphenhydrAMINE 25 MG CAP PO PRN (09:34)
[2021-11-18] MEDS ORDERED: MAGNESIUM HYDROXIDE 2,400 MG/10 ML CUP PO PRN (09:34)
[2021-11-18] MEDS ORDERED: DIVALPROEX SPRINKLE 125 MG CAP.SPRINK PO SCH (09:45)
--- NOTE | 2021-11-18 09:52 | P.CNPUL ---
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 EMS was called for respiratory distress and altered mental status. Apparently patient was seen normal 30 minutes prior to their evaluation. Patient had progressive shortness of breath, lethargy. At baseline patient is alert but nonverbal. COVID-19 PCR was negative, and patient is vaccinated. Patient had a pulse ox of only 60% on room air upon EMS arrival, and his extremities were cold to touch. No previous history of pulmonary disease or heart failure. Patient has had previous history of pneumonia. Chest x-ray showed pulmonary interstitial and airspace edema, and left lower lobe pn eumonia. Patient was significantly tachypneic, hypoxic, his CODE STATUS is DO NOT RESUSCITATE, and his legal guardian wanted supportive treatment with antibiotics and BiPAP support, patient was placed on BiPAP support with pressures of 14/7 and FiO2 100%. Patient is hypothermic with a temp of 87F, his blood pressure was borderline low on arrival at 92/47, and has been as low as 88/60. His laboratory findings showed a white count of 5.7, hemoglobin of 9.4, platelet count of 76, INR of 1.3, sodium of 143, potassium is 4.1, CO2 of 37, BUN 38, creatinine 0.78, plasma lactic acid of 2.2, alk phos was elevated at 202, but AST and ALT were within normal limits at 35 and 12 respectively, troponin was 0.055, ammonia level was 11, proBNP was 384. Urinalysis showed 3+ glucose, trace protein but no evidence of infection, valproic acid level was elevated at 124. COVID-19 PCR was negative as mentioned above. Patient was given a dose of azithromycin and Rocephin in the emergency department, he was given IV fluids, he was placed on the blanket warmer, blood cultures have been sent. he was admitted to the intensive care unit. This morning he seen in the ICU, on BiPAP at 14 and 7 and FiO2 100%, he is tachypneic with a respiratory rate in the 55-60 breaths per minute. He is poorly responsive, he is using accessory muscles of breathing. he still hypothermic but the temp is improved and is up to 94.8F, he remains on the blanket warmer. Blood pressure is 116/72, is in sinus mechanism, tachycardic. His blood gas showed pO2 of 58, pCO2 of 61, and pH of 7.35, this was done on the FiO2 of 100%. We spoke to the mother on the phone who is his legal guardian, we updated her on the patient's condition, and that he is doing quite poorly. She stated that she would like to continue supportive treatment with antibiotics, fluids and BiPAP support. She is not ready to make him comfort care. Review of Systems ROS unobtainable: due to mental status All systems: negative Constitutional: Denies chills, Denies fever Eyes: denies blurred vision, denies pain Ears, nose, mouth and throat: Denies headache, Denies sore throat Cardiovascular: Denies chest pain, Denies shortness of breath Respiratory: Reports dyspnea, Reports respiratory infections, Denies cough Gastrointestinal: Denies abdominal pain, Denies diarrhea, Denies nausea, Denies vomiting Musculoskeletal: Denies myalgias Integumentary: Denies pruritus, Denies rash Neurological: Reports change in mentation, Reports seizures, Denies numbness, Denies weakness Psychiatric: Denies anxiety, Denies depression Endocrine: Denies fatigue, Denies weight change Past Medical History Past Medical History: Pneumonia, Seizure Disorder Additional Past Medical History / Comment(s): 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 History of Any Multi-Drug Resistant Organisms: None Reported Past Surgical History: No Surgical Hx Reported Additional Past Anesthesia/Blood Transfusion Reaction / Comment(s): Pt has never had surgery. Past Psychological History: No Psychological Hx Reported Smoking Status: Never smoker Past Alcohol Use History: None Reported Past Drug Use History: None Reported - Past Family History Mother Family Medical History: No Reported History Father Additional Family Medical History / Comment(s): Father has some joint problems and has had bilateral hip and knee replacements.spondolytis Medications and Allergies Home Medications Medication Instructions Recorded Confirmed Type Cholecalciferol [Vitamin D3 (25 25 mcg PO DAILY 12/23/16 11/18/21 History Mcg = 1000 Iu)] Divalproex Sprinkle [Depakote 750 mg PO Q12H 12/23/16 11/18/21 History Sprinkle] LORazepam [Ativan] 1.5 mg PO TID 12/23/16 11/18/21 History Topiramate [Topamax] 30 mg PO BID 12/23/16 11/18/21 History Acetaminophen Tab [Tylenol Tab] 500 mg PO Q4-6H PRN 11/18/21 11/18/21 History Ibuprofen [Motrin Ib] 200 mg PO Q6H PRN 11/18/21 11/18/21 History Magnesium Hydroxide [Milk of 2,400 mg PO DAILY PRN 11/18/21 11/18/21 History Magnesia] diphenhydrAMINE ELIXIR [Benadryl 25 mg PO Q6H PRN 11/18/21 11/18/21 History Elixir] diphenhydrAMINE [Benadryl] 25 mg PO Q6H PRN 11/18/21 11/18/21 History guaiFENesin-DM 100-10MG/5ML 10 ml PO Q4H PRN 11/18/21 11/18/21 History [Robitussin DM] risperiDONE [RisperDAL] 0.25 mg PO DAILY 11/18/21 11/18/21 History Allergies Allergy/AdvReac Type Severity Reaction Status Date / Time No Known Allergies Allergy Verified 06/30/19 12:21 Physical Exam Vitals: Vital Signs Temp Pulse Resp BP Pulse Ox 11/18/21 08:00 94.8 F L 79 116/72 94 L 11/18/21 07:00 76 74 H 116/72 94 L 11/18/21 06:00 68 71 H 136/52 91 L 11/18/21 05:04 93 L 11/18/21 04:33 67 74 H 109/47 93 L 11/18/21 03:00 62 67 H 96/74 93 L 11/18/21 01:48 89 F L 57 L 70 H 88/60 97 11/18/21 00:38 56 L 60 H 102/58 84 L 11/18/21 00:30 75 67 H 11/18/21 00:17 87 F L 56 L 49 H 102/58 75 L 11/18/21 00:14 61 20 92/46 85 L 11/18/21 00:12 30 H Intake and Output 11/17/21 11/18/21 11/18/21 22:59 06:59 14:59 Intake Total 130 280 Output Total 275 70 Balance -145 210 Intake: IV 130 260 Sodium Chloride 0.9% 1, 130 260 000 ml @ 130 mls/hr IV . Q7H42M [facility] Rx#:[id number] Intake, IV Titration 20 Amount Dextrose 5%-0.9% NaCl 1, 20 000 ml @ 20 mls/hr IV . Q24H [facility] Rx#:[id number] Output: Urine 275 70 Other: Voiding Method Indwelling Catheter Weight 50.802 kg GENERAL EXAM: 36-year-old white male, with developmental delay, small statured, appears younger than stated age, in significant respiratory distress, tachypne ic with a respiratory rate of 55-60 breaths per minute, on BiPAP support with pressures of 14/7 and FiO2 about 100%, using accessory muscles of breathing, poorly responsive, patient is on a bear hugger warmer, he is hypothermic with a temp of 89F HEAD: Normocephalic/atraumatic. EYES: Normal reaction of pupils, equal size. Conjunctiva pink, sclera white. NOSE: Clear with pink turbinates. THROAT: No erythema or exudates. NECK: No masses, no JVD, no thyroid enlargement, no adenopathy. CHEST: No chest wall deformity. Symmetrical expansion. LUNGS: Equal air entry with no crackles, wheeze, rhonchi or dullness. CVS: Regular rate and rhythm, normal S1 and S2, no gallops, no murmurs, no rubs ABDOMEN: Soft, nontender. No hepatosplenomegaly, normal bowel sounds, no guarding or rigidity. EXTREMITIES: No clubbing, no edema, no cyanosis, 2+ pulses and upper and lower extremities. MUSCULOSKELETAL: Muscle strength and tone normal. SPINE: No scoliosis or deformity SKIN: No rashes CENTRAL NERVOUS SYSTEM: Poorly responsive, tachypneic, and respiratory distress. No focal deficits, tone is normal in all 4 extremities. Results - Laboratory Findings CBC and BMP: 11/18/21 00:03 11/18/21 00:03 ABG ABG pH 7.35 (7.35-7.45) 11/18/21 01:10 ABG pCO2 61 mmHg (35-45) H 11/18/21 01:10 ABG pO2 58 mmHg (83-108) L* 11/18/21 01:10 ABG O2 Saturation 86.6 % (94-97) L 11/18/21 01:10 PT/INR, D-dimer PT 13.7 sec (9.0-12.0) H 11/18/21 00:03 INR 1.3 (<1.2) H 11/18/21 00:03 Abnormal lab findings: Abnormal Labs 11/18/21 11/18/21 11/18/21 00:03 00:03 00:03 RBC 3.53 L Hgb 9.4 L Hct 30.6 L MCHC 30.9 L RDW 22.0 H Plt Count 76 L Metamyelocytes # (Man) 0.34 H Nucleated RBCs 10 H PT 13.7 H INR 1.3 H APTT 31.4 H ABG pCO2 ABG pO2 ABG HCO3 ABG Total CO2 ABG O2 Saturation Sodium Carbon Dioxide BUN POC Glucose (mg/dL) Plasma Lactic Acid Arian Alkaline Phosphatase Troponin I Albumin Urine Protein Trace H Urine Glucose (UA) 3+ H Valproic Acid 11/18/21 11/18/21 11/18/21 00:03 00:03 01:10 RBC Hgb Hct MCHC RDW Plt Count Metamyelocytes # (Man) Nucleated RBCs PT INR APTT ABG pCO2 61 H ABG pO2 58 L* ABG HCO3 34 H ABG Total CO2 36 H ABG O2 Saturation 86.6 L Sodium 148 H Carbon Dioxide 37 H BUN 38 H POC Glucose (mg/dL) Plasma Lactic Acid Arian Alkaline Phosphatase 202 H Troponin I 0.055 H* Albumin 3.3 L Urine Protein Urine Glucose (UA) Valproic Acid 124.4 H* 11/18/21 11/18/21 11/18/21 02:06 05:02 05:29 RBC Hgb Hct MCHC RDW Plt Count Metamyelocytes # (Man) Nucleated RBCs PT INR APTT ABG pCO2 ABG pO2 ABG HCO3 ABG Total CO2 ABG O2 Saturation Sodium Carbon Dioxide BUN POC Glucose (mg/dL) 60 L 273 H Plasma Lactic Acid Arian 2.6 H* Alkaline Phosphatase Troponin I Albumin Urine Protein Urine Glucose (UA) Valproic Acid 11/18/21 11/18/21 11/18/21 05:59 06:34 08:53 RBC Hgb Hct MCHC RDW Plt Count Metamyelocytes # (Man) Nucleated RBCs PT INR APTT ABG pCO2 ABG pO2 ABG HCO3 ABG Total CO2 ABG O2 Saturation Sodium Carbon Dioxide BUN POC Glucose (mg/dL) 184 H 43 L Plasma Lactic Acid Arian 2.2 H* Alkaline Phosphatase Troponin I Albumin Urine Protein Urine Glucose (UA) Valproic Acid 11/18/21 08:56 RBC Hgb Hct MCHC RDW Plt Count Metamyelocytes # (Man) Nucleated RBCs PT INR APTT ABG pCO2 ABG pO2 ABG HCO3 ABG Total CO2 ABG O2 Saturation Sodium Carbon Dioxide BUN POC Glucose (mg/dL) 44 L Plasma Lactic Acid Arian Alkaline Phosphatase Troponin I Albumin Urine Protein Urine Glucose (UA) Valproic Acid - Diagnostic Findings Chest x-ray: report reviewed, image reviewed Assessment and Plan Plan: Assessment: #1. Acute hypoxic respiratory failure related to acute pneumonia, possibly related to acute aspiration. COVID-19 PCR was negative. Patient is currently on BiPAP support with pressures of 14/75-100%, doing poorly, poorly responsive, hypothermic #2. Lactic acidosis related to the above #3. Hyperthermia related to sepsis #4. Thrombocytopenia possibly related to sepsis #5. Anemia, with no clear evidence of bleeding, of unknown etiology #6. Seizure disorder #7. History of developmental delay #8. Patient is nonverbal at baseline #9. History of meningitis with brain injury at 7 weeks of age Plan: We updated the legal guardian on the phone who wishes to continue with supportive measures at this time Continue with antibiotics, will place the patient on Zosyn, continue IV fluids and BiPAP support BiPAP settings will be increased to 18/7 and FiO2 100% Protonix for GI prophylaxis, SCDs for DVT prophylaxis Patient is unable to take any oral medications at this time However he is unstable to remove his BiPAP support and place an NG tube at this time We may consider switching his oral medication to IV medications, Monitor for seizures Add breathing treatments His prognosis is quite poor This was shared with his legal guardian We'll continue supportive treatment for now I performed a history & physical examination of the patient and discussed their management with my nurse practitioner, Carrol Donohue. I reviewed the nurse practitioner's note and agree with the documented findings and plan of care. Lung sounds are positive for ddim breath sounds throughout the lung galicia. The findings and the impression was discussed with the patient. I attest to the documentation by the nurse practitioner. Time with Patient: Greater than 30
[2021-11-18 09:55] LABS: Glucose,Whole Blood 150 mg/dL (75-99)
[2021-11-18] MEDS: TOPIRAMATE 15 MG PO SCH ×2 (10:30→20:48)
[2021-11-18 11:55] LABS: Glucose,Whole Blood 39 mg/dL (75-99)
[2021-11-18] MEDS ORDERED: DEXTROSE 50% SYRINGE 50 ML IVP ONE ×2 (11:57→13:55)
[2021-11-18] MEDS: DEXTROSE 10% IN WATER 1,000 ML in EMPTY BAG 1 BAG IV SCH (13:28)
[2021-11-18 13:33] LABS: Glucose,Whole Blood 53 mg/dL (75-99)
[2021-11-18 14:22] LABS: Glucose,Whole Blood 235 mg/dL (75-99)
[2021-11-18] MEDS: LORazepam 0.5 MG TAB PO SCH ×2 (15:20→21:28)
[2021-11-18 15:29] LABS: Glucose,Whole Blood 112 mg/dL (75-99)
[2021-11-18 17:06] LABS: Glucose,Whole Blood 110 mg/dL (75-99)
--- NOTE | 2021-11-18 18:19 | ECHOF ---
Referral Reason:abnormal ekg MEASUREMENTS -------- HEIGHT: 170.2 cm WEIGHT: 50.8 kg BP: IVSd: 1.1 cm (0.6 - 1.1) LVIDd: 2.4 cm (3.9 - 5.3) LVPWd: 1.0 cm (0.6 - 1.1) IVSs: 1.4 cm LVIDs: 0.9 cm LVPWs: 1.2 cm MV EXCURSION: 9.414 mm (> 18.000) MV EF SLOPE: 66 mm/s (70 - 150) EPSS: 0.6 cm MV E Sohail: 0.84 m/s MV DecT: 88 ms MV A Sohail: 0.78 m/s MV E/A Ratio: 1.08 RAP: 5.00 mmHg RVSP: 15.06 mmHg FINDINGS -------- Sinus rhythm. This was a technically difficult study with suboptimal views. The left ventricular size is normal. Left ventricular wall thickness is normal. Overall left vent ricular systolic function is normal with, an EF between 60 - 65 %. The RV was not well visualized. The left atrial size is normal. The right atrium was not well visualized. The aortic valve was not well visualized. The mitral valve is normal. Mild mitral regurgitation is present. The tricuspid valve appears structurally normal. Mild tricuspid regurgitation present. Right vent ricular systolic pressure is normal at < 35 mmHg. The pulmonic valve was not well visualized. The aortic root size is normal. IVC Not well visulized. There is a small, generalized pericardial effusion present. CONCLUSIONS -------- 1. This was a technically difficult study with suboptimal views. 2. Left ventricular wall thickness is normal. 3. Overall left ventricular systolic function is normal with, an EF between 60 - 65 %. 4. Mild mitral regurgitation is present. 5. Mild tricuspid regurgitation present. 6. There is a small, generalized pericardial effusion present. TAPE RECORDER REPAIRER: Judy Antunez RDCS
--- NOTE | 2021-11-18 19:03 | P.HPIM ---
History of Present Illness H&P Date: 11/18/21 Tolu Sánchez, is a 36-year-old male, well-known to my practice , with history of physical debility , mental debility , and seizure disorder , patient is a resident at a nursing home ,who presented to [facility] with a chief complaint of mental status changes and worsening shortness of breath. He was evaluated in the emergency room vital examination on presentation revealed a temperature of 87 pulse 56 respiration 49 blood pressure 102/58 pulse ox 75% on 15 L nonrebreather mask Laboratory data revealed a white blood count of 5.7 hemoglobin 9.4 platelet count 76 sodium 148 potassium 4.1 chloride 37 BUN 38 creatinine 0.78 lactic acid 2.7 troponin 0.055 BNP 384 COVID-19 PCR was negative Chest x-ray done in the emergency room revealed the radiology there was evidence of pulmonary edema, and evidence of left lower lobe pneumonia, EKG revealed supraventricular bradycardia with nonspecific T-wave abnormality. 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 History of Any Multi-Drug Resistant Organisms: None Reported Past Surgical History: No Surgical Hx Reported Additional Past Anesthesia/Blood Transfusion Reaction / Comment(s): Pt has never had surgery. Past Psychological History: No Psychological Hx Reported Smoking Status: Never smoker Past Alcohol Use History: None Reported Past Drug Use History: None Reported - Past Family History Mother Family Medical History: No Reported History Father Additional Family Medical History / Comment(s): Father has some joint problems and has had bilateral hip and knee replacements.spondolytis Medications and Allergies Home Medications Medication Instructions Recorded Confirmed Type Cholecalciferol [Vitamin D3 (25 25 mcg PO DAILY 12/23/16 11/18/21 History Mcg = 1000 Iu)] Divalproex Sprinkle [Depakote 750 mg PO Q12H 12/23/16 11/18/21 History Sprinkle] LORazepam [Ativan] 1.5 mg PO TID 12/23/16 11/18/21 History Topiramate [Topamax] 30 mg PO BID 12/23/16 11/18/21 History Acetaminophen Tab [Tylenol Tab] 500 mg PO Q4-6H PRN 11/18/21 11/18/21 History Ibuprofen [Motrin Ib] 200 mg PO Q6H PRN 11/18/21 11/18/21 History Magnesium Hydroxide [Milk of 2,400 mg PO DAILY PRN 11/18/21 11/18/21 History Magnesia] diphenhydrAMINE ELIXIR [Benadryl 25 mg PO Q6H PRN 11/18/21 11/18/21 History Elixir] diphenhydrAMINE [Benadryl] 25 mg PO Q6H PRN 11/18/21 11/18/21 History guaiFENesin-DM 100-10MG/5ML 10 ml PO Q4H PRN 11/18/21 11/18/21 History [Robitussin DM] risperiDONE [RisperDAL] 0.25 mg PO DAILY 11/18/21 11/18/21 History Allergies Allergy/AdvReac Type Severity Reaction Status Date / Time No Known Allergies Allergy Verified 06/30/19 12:21 Physical Exam Vitals: Vital Signs Temp Pulse Resp BP Pulse Ox 11/18/21 08:00 94.8 F L 79 116/72 94 L 11/18/21 07:00 76 74 H 116/72 94 L 11/18/21 06:00 68 71 H 136/52 91 L 11/18/21 05:04 93 L 11/18/21 04:33 67 74 H 109/47 93 L 11/18/21 03:00 62 67 H 96/74 93 L 11/18/21 01:48 89 F L 57 L 70 H 88/60 97 11/18/21 00:38 56 L 60 H 102/58 84 L 11/18/21 00:30 75 67 H 11/18/21 00:17 87 F L 56 L 49 H 102/58 75 L 11/18/21 00:14 61 20 92/46 85 L 11/18/21 00:12 30 H Intake and Output 11/17/21 11/18/21 11/18/21 22:59 06:59 14:59 Intake Total 130 280 Output Total 275 70 Balance -145 210 Intake: IV 130 260 Sodium Chloride 0.9% 1, 130 260 000 ml @ 130 mls/hr IV . Q7H42M [facility] Rx#:[id number] Intake, IV Titration 20 Amount Dextrose 5%-0.9% NaCl 1, 20 000 ml @ 20 mls/hr IV . Q24H [facility] Rx#:[id number] Output: Urine 275 70 Other: Voiding Method Indwelling Catheter Weight 50.802 kg In general patient is maintained on BiPAP he is responsive to stimuli HEENT head normocephalic and atraumatic Neck is supple no JVD no goiter no lymphadenopathy no carotid bruit Chest examination is clear to auscultation no crackles no wheezing Cardiac exam reveals regular heart sounds S1 and S2 no gallops no murmurs Abdomen is soft nontender no organomegaly with normal bowel sounds Extremity exam reveals no edema no cyanosis or clubbing Neurological examination reveals no gross focal deficits Results CBC & Chem 7: 11/18/21 00:03 11/18/21 00:03 Labs: Abnormal Lab Results - Last 24 Hours (Table) 11/18/21 11/18/21 11/18/21 Range/Units 00:03 00:03 00:03 RBC 3.53 L (4.30-5.90) m/uL Hgb 9.4 L (13.0-17.5) gm/dL Hct 30.6 L (39.0-53.0) % MCHC 30.9 L (31.0-37.0) g/dL RDW 22.0 H (11.5-15.5) % Plt Count 76 L (150-450) k/uL Metamyelocytes # (Man) 0.34 H (0) k/uL Nucleated RBCs 10 H (0-0) /100 WBC PT 13.7 H (9.0-12.0) sec INR 1.3 H (<1.2) APTT 31.4 H (22.0-30.0) sec ABG pCO2 (35-45) mmHg ABG pO2 (83-108) mmHg ABG HCO3 (21-25) mmol/L ABG Total CO2 (19-24) mmol/L ABG O2 Saturation (94-97) % Sodium (137-145) mmol/L Carbon Dioxide (22-30) mmol/L BUN (9-20) mg/dL POC Glucose (mg/dL) (75-99) mg/dL Plasma Lactic Acid Arian (0.7-2.0) mmol/L Alkaline Phosphatase (38-126) U/L Troponin I (0.000-0.034) ng/mL Albumin (3.5-5.0) g/dL Urine Protein Trace H (Negative) Urine Glucose (UA) 3+ H (Negative) Valproic Acid ug/mL 11/18/21 11/18/21 11/18/21 Range/Units 00:03 00:03 01:10 RBC (4.30-5.90) m/uL Hgb (13.0-17.5) gm/dL Hct (39.0-53.0) % MCHC (31.0-37.0) g/dL RDW (11.5-15.5) % Plt Count (150-450) k/uL Metamyelocytes # (Man) (0) k/uL Nucleated RBCs (0-0) /100 WBC PT (9.0-12.0) sec INR (<1.2) APTT (22.0-30.0) sec ABG pCO2 61 H (35-45) mmHg ABG pO2 58 L* (83-108) mmHg ABG HCO3 34 H (21-25) mmol/L ABG Total CO2 36 H (19-24) mmol/L ABG O2 Saturation 86.6 L (94-97) % Sodium 148 H (137-145) mmol/L Carbon Dioxide 37 H (22-30) mmol/L BUN 38 H (9-20) mg/dL POC Glucose (mg/dL) (75-99) mg/dL Plasma Lactic Acid Arian (0.7-2.0) mmol/L Alkaline Phosphatase 202 H (38-126) U/L Troponin I 0.055 H* (0.000-0.034) ng/mL Albumin 3.3 L (3.5-5.0) g/dL Urine Protein (Negative) Urine Glucose (UA) (Negative) Valproic Acid 124.4 H* ug/mL 11/18/21 11/18/21 11/18/21 Range/Units 02:06 05:02 05:29 RBC (4.30-5.90) m/uL Hgb (13.0-17.5) gm/dL Hct (39.0-53.0) % MCHC (31.0-37.0) g/dL RDW (11.5-15.5) % Plt Count (150-450) k/uL Metamyelocytes # (Man) (0) k/uL Nucleated RBCs (0-0) /100 WBC PT (9.0-12.0) sec INR (<1.2) APTT (22.0-30.0) sec ABG pCO2 (35-45) mmHg ABG pO2 (83-108) mmHg ABG HCO3 (21-25) mmol/L ABG Total CO2 (19-24) mmol/L ABG O2 Saturation (94-97) % Sodium (137-145) mmol/L Carbon Dioxide (22-30) mmol/L BUN (9-20) mg/dL POC Glucose (mg/dL) 60 L 273 H (75-99) mg/dL Plasma Lactic Acid Arian 2.6 H* (0.7-2.0) mmol/L Alkaline Phosphatase (38-126) U/L Troponin I (0.000-0.034) ng/mL Albumin (3.5-5.0) g/dL Urine Protein (Negative) Urine Glucose (UA) (Negative) Valproic Acid ug/mL 11/18/21 11/18/21 11/18/21 Range/Units 05:59 06:34 08:53 RBC (4.30-5.90) m/uL Hgb (13.0-17.5) gm/dL Hct (39.0-53.0) % MCHC (31.0-37.0) g/dL RDW (11.5-15.5) % Plt Count (150-450) k/uL Metamyelocytes # (Man) (0) k/uL Nucleated RBCs (0-0) /100 WBC PT (9.0-12.0) sec INR (<1.2) APTT (22.0-30.0) sec ABG pCO2 (35-45) mmHg ABG pO2 (83-108) mmHg ABG HCO3 (21-25) mmol/L ABG Total CO2 (19-24) mmol/L ABG O2 Saturation (94-97) % Sodium (137-145) mmol/L Carbon Dioxide (22-30) mmol/L BUN (9-20) mg/dL POC Glucose (mg/dL) 184 H 43 L (75-99) mg/dL Plasma Lactic Acid Arian 2.2 H* (0.7-2.0) mmol/L Alkaline Phosphatase (38-126) U/L Troponin I (0.000-0.034) ng/mL Albumin (3.5-5.0) g/dL Urine Protein (Negative) Urine Glucose (UA) (Negative) Valproic Acid ug/mL 11/18/21 Range/Units 08:56 RBC (4.30-5.90) m/uL Hgb (13.0-17.5) gm/dL Hct (39.0-53.0) % MCHC (31.0-37.0) g/dL RDW (11.5-15.5) % Plt Count (150-450) k/uL Metamyelocytes # (Man) (0) k/uL Nucleated RBCs (0-0) /100 WBC PT (9.0-12.0) sec INR (<1.2) APTT (22.0-30.0) sec ABG pCO2 (35-45) mmHg ABG pO2 (83-108) mmHg ABG HCO3 (21-25) mmol/L ABG Total CO2 (19-24) mmol/L ABG O2 Saturation (94-97) % Sodium (137-145) mmol/L Carbon Dioxide (22-30) mmol/L BUN (9-20) mg/dL POC Glucose (mg/dL) 44 L (75-99) mg/dL Plasma Lactic Acid Arian (0.7-2.0) mmol/L Alkaline Phosphatase (38-126) U/L Troponin I (0.000-0.034) ng/mL Albumin (3.5-5.0) g/dL Urine Protein (Negative) Urine Glucose (UA) (Negative) Valproic Acid ug/mL Assessment and Plan Plan: Pneumonia, likely related to aspiration Acute hypoxic respiratory failure, related to pneumonia, patient was started on BiPAP in the emergency room Sepsis, as evidenced by severe hypothymia, tachypnea, and elevated lactic acid Lactic acidosis Severe hypothermia on presentation related to sepsis Minimal elevation in troponin, doubt cardiac ischemia Chest x-ray revealing pulmonary edema per radiology, however BNP is normal at 384, will check echocardiogram, doubt cardiac origin Underlying history of viral meningitis in superintendent meters with 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
[2021-11-18] MEDS: DIVALPROEX SPRINKLE 125 MG CAP.SPRINK PO SCH (20:48)
[2021-11-18] MEDS: ENOXAPARIN 40 MG/0.4 ML SYRINGE SQ SCH (21:28)
[2021-11-18 21:44] LABS: Glucose,Whole Blood 103 mg/dL (75-99)
[2021-11-19 00:08] LABS: Glucose,Whole Blood 117 mg/dL (75-99)
--- NOTE | 2021-11-19 01:06 | XR ---
EXAMINATION TYPE: XR chest 1V portable DATE OF EXAM: 11/19/2021 COMPARISON: 11/18/2021 HISTORY: Hypoxemia TECHNIQUE: FINDINGS: There is pulmonary vascular congestion. There is large right pleural effusion. There is sma ll left pleural effusion. There are chest leads. IMPRESSION: Congestive heart failure with large right pleural effusion that is increased compared to yesterday. There is improvement in the left pleural effusion compared to yesterday.
[2021-11-19] MEDS ORDERED: FUROSEMIDE 10 MG/ML 4 ML VIAL IV STA ×2 (01:33→08:14)
[2021-11-19] MEDS: SODIUM CHLORIDE 0.9% 1,000 ML IV SCH (01:35)
[2021-11-19 04:46] LABS: Glucose,Whole Blood 105 mg/dL (75-99)
[2021-11-19] MEDS: DEXTROSE 10% IN WATER 1,000 ML in EMPTY BAG 1 BAG IV SCH (04:48)
[2021-11-19] MEDS: DEXTROSE 5%-0.9% NACL 1,000 ML IV SCH (04:48)
[2021-11-19 07:32] LABS: Glucose,Whole Blood 108 mg/dL (75-99)
[2021-11-19] MEDS: LORazepam 0.5 MG TAB PO SCH (07:47)
[2021-11-19] MEDS: DIVALPROEX SPRINKLE 125 MG CAP.SPRINK PO SCH (07:48)
[2021-11-19] MEDS: TOPIRAMATE 15 MG PO SCH (07:48)
[2021-11-19] MEDS: ENOXAPARIN 40 MG/0.4 ML SYRINGE SQ SCH (08:08)
[2021-11-19] MEDS: PIPERACILLIN-TAZOBACTAM 3.375 GM in SODIUM CHLORIDE 0.9% 100 ML IVPB SCH ×2 (08:09→15:51)
[2021-11-19 08:19] LABS: Anisocytosis Moderate; Hypochromasia Marked; MCH 27.3 pg (25.0-35.0); MCHC 31.8 g/dL (31.0-37.0); MCV 85.9 fL (80.0-100.0); Mean Platelet Volume 9.8; Microcytosis Slight; Poikilocytosis Slight; RBC 2.91 m/uL (4.30-5.90); RDW 22.1 % (11.5-15.5)
[2021-11-19 08:21] LABS: ALT 11 U/L (4-49); African American GFR (CKD) >90 (>60 ml/min/1.73 sqM); Albumin 2.4 g/dL (3.5-5.0); Anion Gap 5 mmol/L; Blood Urea Nitrogen 18 mg/dL (9-20); Calcium 8.8 mg/dL (8.4-10.2); Carbon Dioxide 32 mmol/L (22-30); Chloride 112 mmol/L (98-107); Glucose 100 mg/dL (74-99); Non-African American GFR(CKD) >90 (>60 ml/min/1.73 sqM); Sodium 149 mmol/L (137-145); Total Bilirubin 0.7 mg/dL (0.2-1.3)
[2021-11-19 08:31] LABS: AST 59 U/L (17-59); Alkaline Phosphatase 147 U/L (38-126); Potassium 3.9 mmol/L (3.5-5.1)
[2021-11-19] MEDS ORDERED: CHOLECALCIFEROL 25 MCG (1000 IU) TABLET PO SCH (09:00)
[2021-11-19] MEDS ORDERED: risperiDONE 0.25 MG TAB PO SCH (09:00)
[2021-11-19] MEDS ORDERED: ACETAMINOPHEN IV (For NPO) 1,000 MG in EMPTY BAG 1 BAG IVPB PRN (10:44)
--- NOTE | 2021-11-19 10:52 | P.PN ---
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 EMS was called for respiratory distress and altered mental status. Apparently patient was seen normal 30 minutes prior to their evaluation. Patient had progressive shortness of breath, lethargy. At baseline patient is alert but nonverbal. COVID-19 PCR was negative, and patient is vaccinated. Patient had a pulse ox of only 60% on room air upon EMS arrival, and his extremities were cold to touch. No previous history of pulmonary disease or heart failure. Patient has had previous history of pneumonia. Chest x-ray showed pulmonary interstitial and airspace edema, and left lower lobe pneumonia. Patient was significantly tachypneic, hypoxic, his CODE STATUS is DO NOT RESUSCITATE, and his legal guardian wanted supportive treatment with antibiotics and BiPAP support, patient was placed on BiPAP support with pressures of 14/7 and FiO2 100%. Patient is hypothermic with a temp of 87F, his blood pressure was borderline low on arrival at 92/47, and has been as low as 88/60. His laboratory findings showed a white count of 5.7, hemoglobin of 9.4, platelet count of 76, INR of 1.3, sodium of 143, potassium is 4.1, CO2 of 37, BUN 38, creatinine 0.78, plasma lactic acid of 2.2, alk phos was elevated at 202, but AST and ALT were within normal limits at 35 and 12 respectively, troponin was 0.055, ammonia level was 11, proBNP was 384. Urinalysis showed 3+ glucose, trace protein but no evidence of infection, valproic acid level was elevated at 124. COVID-19 PCR was negative as mentioned above. Patient was given a dose of azithromycin and Rocephin in the emergency department, he was given IV fluids, he was placed on the blanket warmer, blood cultures have been sent. he was admitted to the intensive care unit. This morning he seen in the ICU, on BiPAP at 14 and 7 and FiO2 100%, he is tachypneic with a respiratory rate in the 55-60 breaths per minute. He is poorly responsive, he is using accessory muscles of breathing. he still hypothermic but the temp is improved and is up to 94.8F, he remains on the blanket warmer. Blood pressure is 116/72, is in sinus mechanism, tachycardic. His blood gas showed pO2 of 58, pCO2 of 61, and pH of 7.35, this was done on the FiO2 of 100%. We spoke to the mother on the phone who is his legal guardian, we updated her on the patient's condition, and that he is doing quite poorly. She stated that she would like to continue supportive treatment with antibiotics, fluids and BiPAP support. She i s not ready to make him comfort care. On 11/19/2021 patient seen in follow-up in intensive care unit, he remains on BiPAP support with pressures of 18/7 and FiO2 has been dropped down to 80%, patient seems to be oxygenating slightly better compared to yesterday, still quite tachypneic, with a respiratory rate in the 40s and 50s. Still poorly responsive, and his work of breathing is still quite significant, although on today's exam his minute ventilation is seems to be down to 9.8 compared to 19 L/m on yesterday's exam. Today's chest x-ray shows pulmonary vascular congestion and a large right pleural effusion, and a small left pleural effusion. Patient has received a dose of IV Lasix early this morning, he continues on antibiotics with Zosyn, remains on breathing treatments. His temperature has improved, and this morning his temperature is 97.6F, blood pressure stable, it's 100/57, with a mean of 71, and patient is not requiring vasopressor support, yesterday patient was experiencing frequent episodes of hypoglycemia, and he was requiring frequent IV pushes of 50% dextrose, we placed the patient on 10% dextrose infusion at 75 ML per hour, today the rate has been decreased down to 50 ML per hour, he still has pointed was seen at a rate of 10 ML per hour. Today's labs have been reviewed, his white blood cell count is increased and is up to 18.4, hemoglobin is 8.0, his sodium is 149, potassium is 3.9, chloride is 112, CO2 is 32, BUN is 18 creatinine 0.77. His lactic acid was 2.7 on yesterday's labs. His urine output is in the order of 40-50 ML per hour. Patient has been nothing by mouth due to being BiPAP dependent, he has not been able to take aneurysmal oral medications, he is on IV Protonix and Lovenox for GI and DVT prophylaxis. Objective - Vital Signs Vital signs: Vital Signs Temp 97.6 F 11/19/21 08:00 Pulse 89 11/19/21 10:00 Resp 43 H 11/19/21 10:00 BP 100/57 11/19/21 10:00 Pulse Ox 99 11/19/21 10:00 Intake & Output 11/18/21 11/19/21 11/19/21 18:59 06:59 18:59 Intake Total 3255 1735 330 Output Total 390 1825 185 Balance 2865 -90 145 Weight 51 kg Intake: IV 1560 1660 230 Dextrose 10% in Water 1, 700 200 000 ml In Empty Bag 1 bag @ 50 mls/hr IV .Q20H [facility] Rx#:[id number] Sodium Chloride 0.9% 1, 1560 960 30 000 ml @ 20 mls/hr IV . Q24H [facility] Rx#:[id number] Intake, IV Titration 1695 75 100 Amount Dextrose 10% in Water 1, 375 75 000 ml In Empty Bag 1 bag @ 50 mls/hr IV .Q20H [facility] Rx#:[id number] Dextrose 5%-0.9% NaCl 1, 120 000 ml @ 20 mls/hr IV . Q24H [facility] Rx#:[id number] Piperacillin-Tazobactam 3 200 100 .375 gm In Sodium Chloride 0.9% 100 ml @ 25 mls/hr IVPB Q8HR [facility] Rx# :[id number] Sodium Chloride 0.9% 1, 1000 000 ml @ 999 mls/hr IV . Q1H1M [facility] Rx#:[id number] Output: Urine 390 1825 185 Other: Voiding Method Indwelling Catheter Indwelling Catheter Indwelling Catheter - Exam GENERAL EXAM: 36-year-old white male, with developmental delay, small statured, appears younger than stated age, in significant respiratory distress, tachypneic with a respiratory rate of 55-60 breaths per minute, on BiPAP support with pressures of 18/7 and FiO2 about 100%, using accessory muscles of breathing, poorly responsive, patient is on a bear hugger warmer, patient's temperature has currently improved and patient's temp is 97.6 on today's labs, patient slightly less tachypneic, minute ventilation is improved and is down to 9.8 L/m compared to 19 L HEAD: Normocephalic/atraumatic. EYES: Normal reaction of pupils, equal size. Conjunctiva pink, sclera white. NOSE: Clear with pink turbinates. THROAT: No erythema or exudates. NECK: No masses, no JVD, no thyroid enlargement, no adenopathy. CHEST: No chest wall deformity. Symmetrical expansion. LUNGS: Equal air entry with no crackles, wheeze, rhonchi or dullness. CVS: Regular rate and rhythm, normal S1 and S2, no gallops, no murmurs, no rubs ABDOMEN: Soft, nontender. No hepatosplenomegaly, normal bowel sounds, no guarding or rigidity. EXTREMITIES: No clubbing, no edema, no cyanosis, 2+ pulses and upper and lower extremities. MUSCULOSKELETAL: Muscle strength and tone normal. SPINE: No scoliosis or deformity SKIN: No rashes CENTRAL NERVOUS SYSTEM: Poorly responsive, tachypneic, and respiratory distress. No focal deficits, tone is normal in all 4 extremities. - Labs CBC & Chem 7: 11/19/21 07:29 11/19/21 07:29 Labs: Abnormal Lab Results - Last 24 Hours (Table) 11/18/21 11/18/21 11/18/21 Range/Units 11:53 13:31 14:17 WBC (3.8-10.6) k/uL RBC (4.30-5.90) m/uL Hgb (13.0-17.5) gm/dL Hct (39.0-53.0) % RDW (11.5-15.5) % Sodium (137-145) mmol/L Chloride (98-107) mmol/L Carbon Dioxide (22-30) mmol/L Glucose (74-99) mg/dL POC Glucose (mg/dL) 39 L 53 L 235 H (75-99) mg/dL Plasma Lactic Acid Arian (0.7-2.0) mmol/L Alkaline Phosphatase (38-126) U/L Total Protein (6.3-8.2) g/dL Albumin (3.5-5.0) g/dL 11/18/21 11/18/21 11/18/21 Range/Units 15:26 15:27 17:03 WBC (3.8-10.6) k/uL RBC (4.30-5.90) m/uL Hgb (13.0-17.5) gm/dL Hct (39.0-53.0) % RDW (11.5-15.5) % Sodium (137-145) mmol/L Chloride (98-107) mmol/L Carbon Dioxide (22-30) mmol/L Glucose (74-99) mg/dL POC Glucose (mg/dL) 112 H 110 H (75-99) mg/dL Plasma Lactic Acid Arian 2.7 H* (0.7-2.0) mmol/L Alkaline Phosphatase (38-126) U/L Total Protein (6.3-8.2) g/dL Albumin (3.5-5.0) g/dL 11/18/21 11/19/21 11/19/21 Range/Units 21:42 00:06 04:44 WBC (3.8-10.6) k/uL RBC (4.30-5.90) m/uL Hgb (13.0-17.5) gm/dL Hct (39.0-53.0) % RDW (11.5-15.5) % Sodium (137-145) mmol/L Chloride (98-107) mmol/L Carbon Dioxide (22-30) mmol/L Glucose (74-99) mg/dL POC Glucose (mg/dL) 103 H 117 H 105 H (75-99) mg/dL Plasma Lactic Acid Arian (0.7-2.0) mmol/L Alkaline Phosphatase (38-126) U/L Total Protein (6.3-8.2) g/dL Albumin (3.5-5.0) g/dL 11/19/21 11/19/21 11/19/21 Range/Units 07:29 07:29 07:31 WBC 18.4 H (3.8-10.6) k/uL RBC 2.91 L (4.30-5.90) m/uL Hgb 8.0 L (13.0-17.5) gm/dL Hct 25.0 L (39.0-53.0) % RDW 22.1 H (11.5-15.5) % Sodium 149 H (137-145) mmol/L Chloride 112 H (98-107) mmol/L Carbon Dioxide 32 H (22-30) mmol/L Glucose 100 H (74-99) mg/dL POC Glucose (mg/dL) 108 H (75-99) mg/dL Plasma Lactic Acid Arian (0.7-2.0) mmol/L Alkaline Phosphatase 147 H (38-126) U/L Total Protein 6.0 L (6.3-8.2) g/dL Albumin 2.4 L (3.5-5.0) g/dL Microbiology - Last 24 Hours (Table) 11/18/21 00:10 Blood Culture - Preliminary Blood No Growth after 24 hours 11/18/21 00:03 Blood Culture - Preliminary Blood No Growth after 24 hours Assessment and Plan Plan: Assessment: #1. Acute hypoxic respiratory failure related to acute pneumonia, possibly related to acute aspiration. COVID-19 PCR was negative. Patient is currently on BiPAP support with pressures of 14/75-100%, doing poorly, poorly responsive, hypothermic. On today's labs patient is still BiPAP dependent, still with significant work of breathing, poorly responsive, but no longer hypothermic #2. Lactic acidosis related to the above #3. Hyperthermia related to sepsis #4. Thrombocytopenia possibly related to sepsis #5. Anemia, with no clear evidence of bleeding, of unknown etiology #6. Seizure disorder #7. History of developmental delay #8. Patient is nonverbal at baseline #9. History of meningitis with brain injury at 7 weeks of age Plan: Continue BiPAP support, and at this time patient remains BiPAP dependent, but FiO2 is currently down to 80% Give the patient a dose of IV Lasix Continue antibiotics, Continue BiPAP support Continue GI and DVT prophylaxis SCD for DVT prophylaxis Patient is nothing by mouth, unable to take any of his moral medications Use when necessary Ativan for anxiety and possibility of breakthrough seizures We will switch Depakote to IV, will consult with pharmacy for dose adjustment Monitor for seizures, Head of the bed up at least 30 at all times, maintain aspiration precautions Continue supportive treatment I performed a history & physical examination of the patient and discussed their management with my nurse practitioner, Carrol Donohue. I reviewed the nurse practitioner's note and agree with the documented findings and plan of care. Lung sounds are positive for ddim breath sounds throughout the lung galicia. The findings and the impression was discussed with the patient. I attest to the documentation by the nurse practitioner. Time with Patient: Greater than 30
[2021-11-19 11:22] LABS: Glucose,Whole Blood 96 mg/dL (75-99)
[2021-11-19] MEDS: VALPROATE SODIUM IVPB SCH ×3 (11:43→23:40)
[2021-11-19] MEDS: SODIUM CHLORIDE 0.9% IVPB SCH ×3 (11:43→23:40)
[2021-11-19 14:22] LABS: Platelet Count 54 k/uL (150-450)
[2021-11-19 14:26] LABS: Band Neutrophils % 12 %; Lymphocytes # (M) 3.96 k/uL (1.0-4.8); Metamyelocytes # (M) 1.44 k/uL (0); Metamyelocytes % 8 %; Monocytes # (M) 2.52 k/uL (0-1.0); Myelocytes # (M) 0.72 k/uL (0); Myelocytes % 4 %; Neutrophils % (M) 42 %; Nucleated Red Blood Cells 2 /100 WBC (0-0); Total Cells Counted 200
[2021-11-19 14:27] LABS: Toxic Granulation Present; Toxic Vacuolation Present
[2021-11-19 16:25] LABS: Glucose,Whole Blood 90 mg/dL (75-99)
--- NOTE | 2021-11-19 17:17 | P.CRDCN ---
History of Present Illness Consult date: 11/19/21 History of present illness: This is a 36-year-old gentleman with chronic cognitive impairment due to meningitis and brain injury and he was 7 weeks old, who presented to emergency room from his retirement. Patient was brought in with respiratory distress and altered mental status. Apparently patient was doing fairly well and his normal state of affairs about 30 minutes prior to this incident. Patient was found to be tachypneic and hypoxic. His coronary test was negative. Patient was hypotensive on arrival. A she was anemic with hemoglobin of 9.4. It was felt that patient most probably has aspiration pneumonia and was initiated on antibiotics and admitted to intensive care unit. Patient is under the care of manager digital ad operations. We're asked to see the patient because of abnormal EKG EKG basically showed sinus bradycardia with some baseline artifacts. Patient is a no CODE STATUS. one Troponin value is abnormal at 0.055. His echocardiogram however showed normal LV function without any significant valvular abnormalities. His proBNP is 384. He chest x-ray showed more right-sided pneumonia, probably related to aspiration. Official reading is suggestive of CHF but it looks like more than pneumonia. He is being treated with antibiotics at this point we are not seeing any acute cardiac issues. We'll continue current management and will continue to follow. Patient is on piperacillin/tazobactam Review of Systems Not obtained Past Medical History Past Medical History: Pneumonia, Seizure Disorder Additional Past Medical History / Comment(s): 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 History of Any Multi-Drug Resistant Organisms: None Reported Past Surgical History: No Surgical Hx Reported Additional Past Anesthesia/Blood Transfusion Reaction / Comment(s): Pt has never had surgery. Past Psychological History: No Psychological Hx Reported Smoking Status: Never smoker Past Alcohol Use History: None Reported Past Drug Use History: None Reported - Past Family History Mother Family Medical History: No Reported History Father Additional Family Medical History / Comment(s): Father has some joint problems and has had bilateral hip and knee replacements.spondolytis Medications and Allergies Home Medications Medication Instructions Recorded Confirmed Type Cholecalciferol [Vitamin D3 (25 25 mcg PO DAILY 12/23/16 11/18/21 History Mcg = 1000 Iu)] Divalproex Sprinkle [Depakote 750 mg PO Q12H 12/23/16 11/18/21 History Sprinkle] LORazepam [Ativan] 1.5 mg PO TID 12/23/16 11/18/21 History Topiramate [Topamax] 30 mg PO BID 12/23/16 11/18/21 History Acetaminophen Tab [Tylenol Tab] 500 mg PO Q4-6H PRN 11/18/21 11/18/21 History Ibuprofen [Motrin Ib] 200 mg PO Q6H PRN 11/18/21 11/18/21 History Magnesium Hydroxide [Milk of 2,400 mg PO DAILY PRN 11/18/21 11/18/21 History Magnesia] diphenhydrAMINE ELIXIR [Benadryl 25 mg PO Q6H PRN 11/18/21 11/18/21 History Elixir] diphenhydrAMINE [Benadryl] 25 mg PO Q6H PRN 11/18/21 11/18/21 History guaiFENesin-DM 100-10MG/5ML 10 ml PO Q4H PRN 11/18/21 11/18/21 History [Robitussin DM] risperiDONE [RisperDAL] 0.25 mg PO DAILY 11/18/21 11/18/21 History Allergies Allergy/AdvReac Type Severity Reaction Status Date / Time No Known Allergies Allergy Verified 06/30/19 12:21 Physical Exam Vitals: Vital Signs Temp Pulse Resp BP Pulse Ox 11/19/21 16:00 99.7 F H 96 58 H 92/62 95 11/19/21 15:00 91 62 H 95/53 97 11/19/21 14:58 96 11/19/21 14:00 97 36 H 100/53 96 11/19/21 13:00 96 58 H 101/55 98 11/19/21 12:00 98.2 F 92 29 H 110/59 97 11/19/21 11:00 92 51 H 106/53 96 11/19/21 10:00 89 43 H 100/57 99 11/19/21 09:00 75 53 H 104/60 99 11/19/21 08:00 97.6 F 72 50 H 103/56 100 11/19/21 07:00 69 44 H 105/67 100 11/19/21 06:30 70 57 H 105/67 99 11/19/21 06:00 67 52 H 93/52 99 11/19/21 05:30 71 53 H 99 11/19/21 05:00 77 56 H 83/55 98 11/19/21 04:30 78 43 H 83/55 98 11/19/21 04:00 94.8 F L 78 61 H 95/72 98 11/19/21 03:30 77 54 H 95 11/19/21 03:00 77 61 H 95/42 95 11/19/21 02:30 76 61 H 94 L 11/19/21 02:00 76 52 H 97/56 97 11/19/21 01:45 75 50 H 95 11/19/21 01:30 73 18 97/56 97 11/19/21 01:15 74 27 H 97/56 99 11/19/21 01:00 74 54 H 98 11/19/21 00:45 75 48 H 78 L 11/19/21 00:30 78 36 H 88 L 11/19/21 00:15 71 36 H 86 L 11/19/21 00:07 80 38 H 89 L 11/19/21 00:00 93.7 F L 80 45 H 100/72 88 L 11/18/21 23:00 76 15 89/61 94 L 11/18/21 22:00 79 11 L 105/60 96 11/18/21 21:00 88 37 H 98/67 93 L 11/18/21 20:00 97.8 F 86 40 H 95/51 98 11/18/21 19:00 88 44 H 85/54 100 11/18/21 18:00 96 23 97/45 100 Intake and Output 11/19/21 11/19/21 11/19/21 06:59 14:59 22:59 Intake Total 915 630 200 Output Total 1540 950 105 Balance -625 -320 95 Intake: IV 915 430 100 Dextrose 10% in Water 1, 475 400 100 000 ml In Empty Bag 1 bag @ 50 mls/hr IV .Q20H [facility] Rx#:[id number] Sodium Chloride 0.9% 1, 440 30 000 ml @ 20 mls/hr IV . Q24H [facility] Rx#:[id number] Intake, IV Titration 200 100 Amount Piperacillin-Tazobactam 3 100 100 .375 gm In Sodium Chloride 0.9% 100 ml @ 25 mls/hr IVPB Q8HR [facility] Rx# :[id number] Valproate Sodium 375 mg 100 In Sodium Chloride 0.9% 100 ml @ 100 mls/hr IVPB Q6HR [facility] Rx#:[id number] Output: Urine 1540 950 105 Other: Voiding Method Indwelling Catheter Indwelling Catheter Indwelling Catheter Weight 51 kg GENERAL EXAM: Patient is on BiPAP support. Not communicative HEENT: Normocephalic. NECK: No masses, no nuchal rigidity. CHEST: No chest wall deformity. LUNGS: Diminished breath sounds HEART: S1 and S2 n ABDOMEN: Soft SKIN: No rashes CENTRAL NERVOUS SYSTEM: Deferred EXTREMITIES: No cyanosis, clubbing or edema. Results 11/19/21 07:29 11/19/21 07:29 Cardiac Enzymes 11/19/21 Range/Units 07:29 AST 59 (17-59) U/L CBC 11/19/21 Range/Units 07:29 WBC 18.0 H (3.8-10.6) k/uL RBC 2.91 L (4.30-5.90) m/uL Hgb 8.0 L (13.0-17.5) gm/dL Hct 25.0 L (39.0-53.0) % Plt Count 54 L (150-450) k/uL Comprehensive Metabolic Panel 11/19/21 Range/Units 07:29 Sodium 149 H (137-145) mmol/L Potassium 3.9 (3.5-5.1) mmol/L Chloride 112 H (98-107) mmol/L Carbon Dioxide 32 H (22-30) mmol/L BUN 18 (9-20) mg/dL Creatinine 0.77 (0.66-1.25) mg/dL Glucose 100 H (74-99) mg/dL Calcium 8.8 (8.4-10.2) mg/dL AST 59 (17-59) U/L ALT 11 (4-49) U/L Alkaline Phosphatase 147 H (38-126) U/L Total Protein 6.0 L (6.3-8.2) g/dL Albumin 2.4 L (3.5-5.0) g/dL Current Medications Generic Name Dose Route Start Last Admin Trade Name Freq PRN Reason Stop Dose Admin Albuterol/Ipratropium 3 ml 11/18/21 02:55 Ipratropium-Albuterol 3 Ml Neb INHALATION RT-Q4H PRN Shortness Of Breath Or Wheezing Diphenhydramine HCl 25 mg 11/18/21 09:34 Diphenhydramine Elixir 25 Mg/10 Ml Cup PO Q6H PRN Allergy Symptoms Enoxaparin Sodium 40 mg 11/18/21 19:00 11/19/21 08:08 Enoxaparin 40 Mg/0.4 Ml Syringe SQ 40 mg DAILY [facility] Administration Guaifenesin/Dextromethorphan 10 ml 11/18/21 09:34 Guaifenesin-Dm 100-10mg/5ml 10 Ml Cup PO Q4H PRN Cough Piperacillin Sod/Tazobactam 100 mls @ 25 mls/hr 11/18/21 08:00 11/19/21 15:51 Sod 3.375 gm/ Sodium Chloride IVPB 25 mls/hr Q8HR [facility] Administration Dextrose/Water 1,000 ml/ IV 1,000 mls @ 50 mls/hr 11/18/21 12:45 11/19/21 04:48 Solution IV 75 mls/hr .Q20H [facility] Administration Acetaminophen 1,000 mg/ IV 100 mls @ 400 mls/hr 11/19/21 10:44 Solution IVPB 11/20/21 06:14 Q6HR PRN Fever Valproic Acid 375 mg/ Sodium 103.75 mls @ 100 mls/hr 11/19/21 12:00 11/19/21 11:43 Chloride IVPB 100 mls/hr Q6HR [facility] Administration Ibuprofen 200 mg 11/18/21 09:34 Ibuprofen 200 Mg Tab PO Q6H PRN Fever and/ or Pain Lorazepam 0.5 mg 11/19/21 10:44 Lorazepam 2 Mg/Ml Inj IV Q4HR PRN Anxiety Naloxone HCl 0.2 mg 11/18/21 02:55 Naloxone 0.4 Mg/Ml 1 Ml Vial IV Q2M PRN Opioid Reversal Intake and Output 11/19/21 11/19/21 11/19/21 06:59 14:59 22:59 Intake Total 915 630 200 Output Total 1540 950 105 Balance -625 -320 95 Intake: IV 915 430 100 Dextrose 10% in Water 1, 475 400 100 000 ml In Empty Bag 1 bag @ 50 mls/hr IV .Q20H [facility] Rx#:[id number] Sodium Chloride 0.9% 1, 440 30 000 ml @ 20 mls/hr IV . Q24H [facility] Rx#:[id number] Intake, IV Titration 200 100 Amount Piperacillin-Tazobactam 3 100 100 .375 gm In Sodium Chloride 0.9% 100 ml @ 25 mls/hr IVPB Q8HR [facility] Rx# :[id number] Valproate Sodium 375 mg 100 In Sodium Chloride 0.9% 100 ml @ 100 mls/hr IVPB Q6HR [facility] Rx#:[id number] Output: Urine 1540 950 105 Other: Voiding Method Indwelling Catheter Indwelling Catheter Indwelling Catheter Weight 51 kg 11/19/21 07:29 11/19/21 07:29 EKG Interpretations (text) Sinus bradycardia Assessment and Plan (1) Acute respiratory failure Current Visit: Yes Status: Acute Code(s): J96.00 - ACUTE RESPIRATORY FAILURE, UNSP W HYPOXIA OR HYPERCAPNIA SNOMED Code(s): 63744346 (2) Pneumonia Current Visit: Yes Status: Acute Code(s): J18.9 - PNEUMONIA, UNSPECIFIED ORGANISM SNOMED Code(s): 588222963 (3) Sepsis Current Visit: Yes Status: Acute Code(s): A41.9 - SEPSIS, UNSPECIFIED ORGANISM SNOMED Code(s): 13919292 (4) Sinus bradycardia Current Visit: Yes Status: Acute Code(s): R00.1 - BRADYCARDIA, UNSPECIFIED SNOMED Code(s): 68940182 Plan: Continue current management with antibiotics. His BNP level is normal and echo showed normal LV function. Chest x-ray findings are more suggestive of aspiration pneumonia. We will follow
--- NOTE | 2021-11-19 19:28 | P.PN ---
Subjective Progress Note Date: 11/19/21 Tolu Sánchez, is a 36-year-old male, well-known to my practice , with history of physical debility , mental debility , and seizure disorder , patient is a resident at a long-term ,who presented to [facility] with a chief complaint of mental status changes and worsening shortness of breath. He was evaluated in the emergency room vital examination on presentation revealed a temperature of 87 pulse 56 respiration 49 blood pressure 102/58 pulse ox 75% on 15 L nonrebreather mask Laboratory data revealed a white blood count of 5.7 hemoglobin 9.4 platelet count 76 sodium 148 potassium 4.1 chloride 37 BUN 38 creatinine 0.78 lactic acid 2.7 troponin 0.055 BNP 384 COVID-19 PCR was negative Chest x-ray done in the emergency room revealed the radiology there was evidence of pulmonary edema, and evidence of left lower lobe pneumonia, EKG revealed supraventricular bradycardia with nonspecific T-wave abnormality. Patient was admitted to ICU for further evaluation and treatment On 11/19/2021 patient was seen and examined in the ICU, his vital exam reveals a temperature of 97.6 pulse 89 respiration 43 blood pressure 100/57 pulse ox 99% on BiPAP with FiO2 of 80% he is poorly responsive he moves his extremity to stimuli he is nonverbal, laboratory data today reveals a white blood count of 18.0 hemoglobin 8.0 platelet count 54 sodium 149 potassium 3.9 chloride 112 CO2 32 BUN 18 creatinine 0.77 Objective - Vital Signs Vital signs: Vital Signs Temp 99.7 F H 11/19/21 16:00 Pulse 84 11/19/21 18:00 Resp 55 H 11/19/21 18:00 BP 96/62 11/19/21 18:00 Pulse Ox 94 L 11/19/21 18:00 Intake & Output 11/18/21 11/19/21 11/19/21 18:59 06:59 18:59 Intake Total 3255 1735 930 Output Total 390 1825 1115 Balance 2865 -90 -185 Weight 51 kg Intake: IV 1560 1660 630 Dextrose 10% in Water 1, 700 600 000 ml In Empty Bag 1 bag @ 50 mls/hr IV .Q20H [facility] Rx#:[id number] Sodium Chloride 0.9% 1, 1560 960 30 000 ml @ 20 mls/hr IV . Q24H [facility] Rx#:[id number] Intake, IV Titration 1695 75 300 Amount Dextrose 10% in Water 1, 375 75 000 ml In Empty Bag 1 bag @ 50 mls/hr IV .Q20H [facility] Rx#:[id number] Dextrose 5%-0.9% NaCl 1, 120 000 ml @ 20 mls/hr IV . Q24H [facility] Rx#:[id number] Piperacillin-Tazobactam 3 200 200 .375 gm In Sodium Chloride 0.9% 100 ml @ 25 mls/hr IVPB Q8HR [facility] Rx# :[id number] Sodium Chloride 0.9% 1, 1000 000 ml @ 999 mls/hr IV . Q1H1M [facility] Rx#:[id number] Valproate Sodium 375 mg 100 In Sodium Chloride 0.9% 100 ml @ 100 mls/hr IVPB Q6HR [facility] Rx#:[id number] Output: Urine 390 1825 1115 Other: Voiding Method Indwelling Catheter Indwelling Catheter Indwelling Catheter - Exam In general patient is maintained on BiPAP he is responsive to stimuli HEENT head normocephalic and atraumatic Neck is supple no JVD no goiter no lymphadenopathy no carotid bruit Chest examination is clear to auscultation no crackles no wheezing Cardiac exam reveals regular heart sounds S1 and S2 no gallops no murmurs Abdomen is soft nontender no organomegaly with normal bowel sounds Extremity exam reveals no edema no cyanosis or clubbing Neurological examination reveals no gross focal deficits - Labs CBC & Chem 7: 11/19/21 07:29 11/19/21 07:29 Labs: Abnormal Lab Results - Last 24 Hours (Table) 11/18/21 11/19/21 11/19/21 Range/Units 21:42 00:06 04:44 WBC (3.8-10.6) k/uL RBC (4.30-5.90) m/uL Hgb (13.0-17.5) gm/dL Hct (39.0-53.0) % RDW (11.5-15.5) % Plt Count (150-450) k/uL Neutrophils # (Manual) (1.3-7.7) k/uL Monocytes # (Manual) (0-1.0) k/uL Metamyelocytes # (Man) (0) k/uL Myelocytes # (Manual) (0) k/uL Nucleated RBCs (0-0) /100 WBC Sodium (137-145) mmol/L Chloride (98-107) mmol/L Carbon Dioxide (22-30) mmol/L Glucose (74-99) mg/dL POC Glucose (mg/dL) 103 H 117 H 105 H (75-99) mg/dL Alkaline Phosphatase (38-126) U/L Total Protein (6.3-8.2) g/dL Albumin (3.5-5.0) g/dL 11/19/21 11/19/21 11/19/21 Range/Units 07:29 07:29 07:31 WBC 18.0 H (3.8-10.6) k/uL RBC 2.91 L (4.30-5.90) m/uL Hgb 8.0 L (13.0-17.5) gm/dL Hct 25.0 L (39.0-53.0) % RDW 22.1 H (11.5-15.5) % Plt Count 54 L (150-450) k/uL Neutrophils # (Manual) 9.70 H (1.3-7.7) k/uL Monocytes # (Manual) 2.52 H (0-1.0) k/uL Metamyelocytes # (Man) 1.44 H (0) k/uL Myelocytes # (Manual) 0.72 H (0) k/uL Nucleated RBCs 2 H (0-0) /100 WBC Sodium 149 H (137-145) mmol/L Chloride 112 H (98-107) mmol/L Carbon Dioxide 32 H (22-30) mmol/L Glucose 100 H (74-99) mg/dL POC Glucose (mg/dL) 108 H (75-99) mg/dL Alkaline Phosphatase 147 H (38-126) U/L Total Protein 6.0 L (6.3-8.2) g/dL Albumin 2.4 L (3.5-5.0) g/dL Microbiology - Last 24 Hours (Table) 11/18/21 00:10 Blood Culture - Preliminary Blood No Growth after 24 hours 11/18/21 00:03 Blood Culture - Preliminary Blood No Growth after 24 hours Assessment and Plan Plan: Pneumonia, likely related to aspiration Acute hypoxic respiratory failure, related to pneumonia, patient was started on BiPAP in the emergency room Sepsis, as evidenced by severe hypothymia, tachypnea, and elevated lactic acid Lactic acidosis Severe hypothermia on presentation related to sepsis Minimal elevation in troponin, doubt cardiac ischemia Chest x-ray revealing pulmonary edema per radiology, however BNP is normal at 384, will check echocardiogram, doubt cardiac origin 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
[2021-11-19 20:13] LABS: Glucose,Whole Blood 109 mg/dL (75-99)
[2021-11-20] MEDS: PIPERACILLIN-TAZOBACTAM 3.375 GM in SODIUM CHLORIDE 0.9% 100 ML IVPB SCH ×3 (01:40→16:15)
[2021-11-20 02:41] LABS: Glucose,Whole Blood 89 mg/dL (75-99)
[2021-11-20] MEDS: DEXTROSE 10% IN WATER 1,000 ML in EMPTY BAG 1 BAG IV SCH ×3 (03:03→18:58)
[2021-11-20 04:26] LABS: Glucose,Whole Blood 97 mg/dL (75-99)
[2021-11-20] MEDS: SODIUM CHLORIDE 0.9% IVPB SCH ×3 (06:42→18:58)
[2021-11-20] MEDS: VALPROATE SODIUM IVPB SCH ×3 (06:42→18:58)
[2021-11-20 07:59] LABS: Anisocytosis Moderate; Hypochromasia Slight; MCH 27.5 pg (25.0-35.0); MCHC 33.2 g/dL (31.0-37.0); MCV 82.9 fL (80.0-100.0); Mean Platelet Volume 11.3; Microcytosis Slight; Poikilocytosis Slight; RBC 2.54 m/uL (4.30-5.90); RDW 22.1 % (11.5-15.5)
[2021-11-20] MEDS: ENOXAPARIN 40 MG/0.4 ML SYRINGE SQ SCH (08:04)
[2021-11-20] MEDS: PANTOPRAZOLE 40 MG/10 ML VIAL IVP SCH (08:04)
[2021-11-20 08:05] LABS: ALT 11 U/L (4-49); African American GFR (CKD) >90 (>60 ml/min/1.73 sqM); Albumin 2.3 g/dL (3.5-5.0); Anion Gap 8 mmol/L; Blood Urea Nitrogen 22 mg/dL (9-20); Calcium 9.3 mg/dL (8.4-10.2); Carbon Dioxide 30 mmol/L (22-30); Chloride 111 mmol/L (98-107); Glucose 88 mg/dL (74-99); Non-African American GFR(CKD) >90 (>60 ml/min/1.73 sqM); Sodium 149 mmol/L (137-145); Total Bilirubin 0.7 mg/dL (0.2-1.3); Total Protein 5.7 g/dL (6.3-8.2)
[2021-11-20] MEDS ORDERED: FUROSEMIDE 10 MG/ML 4 ML VIAL IV STA (08:09)
[2021-11-20 08:14] LABS: Platelet Count 48 k/uL (150-450)
[2021-11-20 08:15] LABS: AST 63 U/L (17-59); Alkaline Phosphatase 151 U/L (38-126); Potassium 3.9 mmol/L (3.5-5.1)
--- NOTE | 2021-11-20 08:20 | XR ---
EXAMINATION TYPE: XR chest 1V portable DATE OF EXAM: 11/20/2021 COMPARISON: 11/19/2021 HISTORY: Chest pain TECHNIQUE: Single frontal view of the chest is obtained. FINDINGS: There is increasing infiltrate throughout the left lung with mild volume loss suggested. Underlying e ffusion difficult to exclude. Improved aeration within the right lung although there is persistent al veolar right upper lobe, right perihilar and right lower lobe infiltrate. Cardiomediastinal structures are stable. IMPRESSION: 1. Persistent but improving infiltrate right lung. 2. Worsening infiltrate throughout the left lung.
[2021-11-20 08:30] LABS: Glucose,Whole Blood 101 mg/dL (75-99)
--- NOTE | 2021-11-20 09:59 | P.PN ---
Subjective Progress Note Date: 11/20/21 Tolu Sánchez, is a 36-year-old male, well-known to my practice , with history of physical debility , mental debility , and seizure disorder , patient is a resident at a custodial ,who presented to [facility] with a chief complaint of mental status changes and worsening shortness of breath. He was evaluated in the emergency room vital examination on presentation revealed a temperature of 87 pulse 56 respiration 49 blood pressure 102/58 pulse ox 75% on 15 L nonrebreather mask Laboratory data revealed a white blood count of 5.7 hemoglobin 9.4 platelet count 76 sodium 148 potassium 4.1 chloride 37 BUN 38 creatinine 0.78 lactic acid 2.7 troponin 0.055 BNP 384 COVID-19 PCR was negative Chest x-ray done in the emergency room revealed the radiology there was evidence of pulmonary edema, and evidence of left lower lobe pneumonia, EKG revealed supraventricular bradycardia with nonspecific T-wave abnormality. Patient was admitted to ICU for further evaluation and treatment On 11/19/2021 patient was seen and examined in the ICU, his vital exam reveals a temperature of 97.6 pulse 89 respiration 43 blood pressure 100/57 pulse ox 99% on BiPAP with FiO2 of 80% he is poorly responsive he moves his extremity to stimuli he is nonverbal, laboratory data today reveals a white blood count of 18.0 hemoglobin 8.0 platelet count 54 sodium 149 potassium 3.9 chloride 112 CO2 32 BUN 18 creatinine 0.77 On 11/20/2021 patient remains in the intensive care unit on BiPAP. Patient hypothermic 94.1 Bear hugger blanket increased. Current vitals temp 94.1, heart rate 67 and respiratory rate 35, blood pressure 106/61 patient satting 94% on BiPAP. Patient remains on IV antibiotics per nursing staff attempts will be made to place NG tube and restart tube feedings Objective - Vital Signs Vital signs: Vital Signs Temp 94.1 F L 11/20/21 08:00 Pulse 67 11/20/21 09:00 Resp 35 H 11/20/21 09:00 BP 106/61 11/20/21 09:00 Pulse Ox 94 L 11/20/21 09:00 Intake & Output 11/19/21 11/20/21 11/20/21 18:59 06:59 18:59 Intake Total 930 595 265 Output Total 1115 345 410 Balance -185 250 -145 Weight 51.4 kg Intake: IV 630 595 165 Dextrose 10% in Water 1, 600 550 150 000 ml In Empty Bag 1 bag @ 50 mls/hr IV .Q20H [facility] Rx#:[id number] Sodium Chloride 0.9% 1, 30 45 15 000 ml @ 20 mls/hr IV . Q24H [facility] Rx#:[id number] Intake, IV Titration 300 100 Amount Piperacillin-Tazobactam 3 200 100 .375 gm In Sodium Chloride 0.9% 100 ml @ 25 mls/hr IVPB Q8HR [facility] Rx# :[id number] Valproate Sodium 375 mg 100 In Sodium Chloride 0.9% 100 ml @ 100 mls/hr IVPB Q6HR [facility] Rx#:[id number] Output: Urine 1115 345 410 Other: Voiding Method Indwelling Catheter Indwelling Catheter - Exam In general patient is maintained on BiPAP he is responsive to stimuli HEENT head normocephalic and atraumatic Neck is supple no JVD no goiter no lymphadenopathy no carotid bruit Chest examination is clear to auscultation no crackles no wheezing Cardiac exam reveals regular heart sounds S1 and S2 no gallops no murmurs Abdomen is soft nontender no organomegaly with normal bowel sounds Extremity exam reveals no edema no cyanosis or clubbing Neurological examination reveals no gross focal deficits - Labs CBC & Chem 7: 11/20/21 06:27 11/20/21 06:27 Labs: Abnormal Lab Results - Last 24 Hours (Table) 11/19/21 11/19/21 11/19/21 Range/Units 07:29 07:29 20:11 WBC 18.0 H (3.8-10.6) k/uL RBC (4.30-5.90) m/uL Hgb (13.0-17.5) gm/dL Hct (39.0-53.0) % RDW (11.5-15.5) % Plt Count 54 L (150-450) k/uL Neutrophils # (Manual) 9.70 H (1.3-7.7) k/uL Monocytes # (Manual) 2.52 H (0-1.0) k/uL Metamyelocytes # (Man) 1.44 H (0) k/uL Myelocytes # (Manual) 0.72 H (0) k/uL Nucleated RBCs 2 H (0-0) /100 WBC Sodium 149 H (137-145) mmol/L Chloride 112 H (98-107) mmol/L Carbon Dioxide 32 H (22-30) mmol/L BUN (9-20) mg/dL Glucose 100 H (74-99) mg/dL POC Glucose (mg/dL) 109 H (75-99) mg/dL AST (17-59) U/L Alkaline Phosphatase 147 H (38-126) U/L Total Protein 6.0 L (6.3-8.2) g/dL Albumin 2.4 L (3.5-5.0) g/dL 11/20/21 11/20/21 11/20/21 Range/Units 06:27 06:27 08:28 WBC 14.4 H (3.8-10.6) k/uL RBC 2.54 L (4.30-5.90) m/uL Hgb 7.0 L (13.0-17.5) gm/dL Hct 21.0 L (39.0-53.0) % RDW 22.1 H (11.5-15.5) % Plt Count 48 L (150-450) k/uL Neutrophils # (Manual) (1.3-7.7) k/uL Monocytes # (Manual) (0-1.0) k/uL Metamyelocytes # (Man) (0) k/uL Myelocytes # (Manual) (0) k/uL Nucleated RBCs (0-0) /100 WBC Sodium 149 H (137-145) mmol/L Chloride 111 H (98-107) mmol/L Carbon Dioxide (22-30) mmol/L BUN 22 H (9-20) mg/dL Glucose (74-99) mg/dL POC Glucose (mg/dL) 101 H (75-99) mg/dL AST 63 H (17-59) U/L Alkaline Phosphatase 151 H (38-126) U/L Total Protein 5.7 L (6.3-8.2) g/dL Albumin 2.3 L (3.5-5.0) g/dL Microbiology - Last 24 Hours (Table) 11/18/21 00:10 Blood Culture - Preliminary Blood No Growth after 48 hours 11/18/21 00:03 Blood Culture - Preliminary Blood No Growth after 48 hours Assessment and Plan Plan: Pneumonia, likely related to aspiration Acute hypoxic respiratory failure, related to pneumonia, patient was started on BiPAP in the emergency room Sepsis, as evidenced by severe hypothymia, tachypnea, and elevated lactic acid Lactic acidosis Severe hypothermia on presentation related to sepsis Minimal elevation in troponin, doubt cardiac ischemia Chest x-ray revealing pulmonary edema per radiology, however BNP is normal at 384, will check echocardiogram, doubt cardiac origin 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
--- NOTE | 2021-11-20 10:12 | P.PN ---
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 EMS was called for respiratory distress and altered mental status. Apparently patient was seen normal 30 minutes prior to their evaluation. Patient had progressive shortness of breath, lethargy. At baseline patient is alert but nonverbal. COVID-19 PCR was negative, and patient is vaccinated. Patient had a pulse ox of only 60% on room air upon EMS arrival, and his extremities were cold to touch. No previous history of pulmonary disease or heart failure. Patient has had previous history of pneumonia. Chest x-ray showed pulmonary interstitial and airspace edema, and left lower lobe pneumonia. Patient was significantly tachypneic, hypoxic, his CODE STATUS is DO NOT RESUSCITATE, and his legal guardian wanted supportive treatment with antibiotics and BiPAP support, patient was placed on BiPAP support with pressures of 14/7 and FiO2 100%. Patient is hypothermic with a temp of 87F, his blood pressure was borderline low on arrival at 92/47, and has been as low as 88/60. His laboratory findings showed a white count of 5.7, hemoglobin of 9.4, platelet count of 76, INR of 1.3, sodium of 143, potassium is 4.1, CO2 of 37, BUN 38, creatinine 0.78, plasma lactic acid of 2.2, alk phos was elevated at 202, but AST and ALT were within normal limits at 35 and 12 respectively, troponin was 0.055, ammonia level was 11, proBNP was 384. Urinalysis showed 3+ glucose, trace protein but no evidence of infection, valproic acid level was elevated at 124. COVID-19 PCR was negative as mentioned above. Patient was given a dose of azithromycin and Rocephin in the emergency department, he was given IV fluids, he was placed on the blanket warmer, blood cultures have been sent. he was admitted to the intensive care unit. This morning he seen in the ICU, on BiPAP at 14 and 7 and FiO2 100%, he is tachypneic with a respiratory rate in the 55-60 breaths per minute. He is poorly responsive, he is using accessory muscles of breathing. he still hypothermic but the temp is improved and is up to 94.8F, he remains on the blanket warmer. Blood pressure is 116/72, is in sinus mechanism, tachycardic. His blood gas showed pO2 of 58, pCO2 of 61, and pH of 7.35, this was done on the FiO2 of 100%. We spoke to the mother on the phone who is his legal guardian, we updated her on the patient's condition, and that he is doing quite poorly. She stated that she would like to continue supportive treatment with antibiotics, fluids and BiPAP support. She i s not ready to make him comfort care. On 11/19/2021 patient seen in follow-up in intensive care unit, he remains on BiPAP support with pressures of 18/7 and FiO2 has been dropped down to 80%, patient seems to be oxygenating slightly better compared to yesterday, still quite tachypneic, with a respiratory rate in the 40s and 50s. Still poorly responsive, and his work of breathing is still quite significant, although on today's exam his minute ventilation is seems to be down to 9.8 compared to 19 L/m on yesterday's exam. Today's chest x-ray shows pulmonary vascular congestion and a large right pleural effusion, and a small left pleural effusion. Patient has received a dose of IV Lasix early this morning, he continues on antibiotics with Zosyn, remains on breathing treatments. His temperature has improved, and this morning his temperature is 97.6F, blood pressure stable, it's 100/57, with a mean of 71, and patient is not requiring vasopressor support, yesterday patient was experiencing frequent episodes of hypoglycemia, and he was requiring frequent IV pushes of 50% dextrose, we placed the patient on 10% dextrose infusion at 75 ML per hour, today the rate has been decreased down to 50 ML per hour, he still has pointed was seen at a rate of 10 ML per hour. Today's labs have been reviewed, his white blood cell count is increased and is up to 18.4, hemoglobin is 8.0, his sodium is 149, potassium is 3.9, chloride is 112, CO2 is 32, BUN is 18 creatinine 0.77. His lactic acid was 2.7 on yesterday's labs. His urine output is in the order of 40-50 ML per hour. Patient has been nothing by mouth due to being BiPAP dependent, he has not been able to take aneurysmal oral medications, he is on IV Protonix and Lovenox for GI and DVT prophylaxis. On 11/20/2021 patient is seen in follow-up in the intensive care unit, he is opening his eyes to voice today, however he is not responding verbally. Patient is nonverbal at baseline according to the medical records. He seems to be breathing more comfortably today, remains on BiPAP with pressures of 18/7 and FiO2 of 60%, with a pulse ox of 95%, less tachypneic compared to previous exams, his respiratory rate is ranging between 28-36 breaths per minute, tidal volume was 268, his minute ventilation is 8.6. He did have an episode of hypothermia this morning with a temp of 94.1 axillary, she is on a blanket warmer right now , but overall his temperature has been better controlled, and he's had less episodes of hypothermia in the last 24 hours. Blood pressure is 106/61, patient is not requiring any vasopressor support, he remains on D10 at 50 ML per hour, and 0.9 normal saline at a rate of 20 ML per hour. Today's chest x-ray has been reviewed, showing persistent but improving infiltrate in the right lung, and worsening infiltrate throughout the left lung. Patient has received intermittent doses of Lasix, he has produced 1.4 L in urine output in the last 24 hours, his slightly and positive fluid balance, +65 ML over the last 24 hours. Patient is in sinus mechanism. Patient continues on Zosyn for empiric antibiotic coverage, so far his blood cultures have shown no growth. Today's labs have been reviewed, white blood cell count is improving and is down to 14.4, hemoglobin 7.0, platelet count is 48, sodium is 149, potassium is 3.9, chloride is 111, CO2 30, BUN is 22, creatinine 0.79, AST is 63, ALT is 11, and alkaline phosphatase is 151. She is oral medications have been discontinued all except for Depakote which has been switched over to IV, patient continues on breathing treatments, and as needed Ativan for possibility of breakthrough seizures. Patient has not had any seizure activity observed. Patient had episode of bradycardia, he was seen by cardiology, echocardiogram showed preserved LV function with EF of 60-65%, mild mitral regurg, mild tricuspid regurg, and a small generalized pericardial effusion. Overall clinically patient seems to have improved since admission, we'll attempt to get the patient of trial on high flow nasal cannula, to put her NG tube and and possibly start nutrition, hydration, and restart oral medications Objective - Vital Signs Vital signs: Vital Signs Temp 94.1 F L 11/20/21 08:00 Pulse 67 11/20/21 09:00 Resp 35 H 11/20/21 09:00 BP 106/61 11/20/21 09:00 Pulse Ox 94 L 11/20/21 09:00 Intake & Output 11/19/21 11/20/21 11/20/21 18:59 06:59 18:59 Intake Total 930 595 265 Output Total 1115 345 410 Balance -185 250 -145 Weight 51.4 kg Intake: IV 630 595 165 Dextrose 10% in Water 1, 600 550 150 000 ml In Empty Bag 1 bag @ 50 mls/hr IV .Q20H [facility] Rx#:[id number] Sodium Chloride 0.9% 1, 30 45 15 000 ml @ 20 mls/hr IV . Q24H [facility] Rx#:[id number] Intake, IV Titration 300 100 Amount Piperacillin-Tazobactam 3 200 100 .375 gm In Sodium Chloride 0.9% 100 ml @ 25 mls/hr IVPB Q8HR [facility] Rx# :[id number] Valproate Sodium 375 mg 100 In Sodium Chloride 0.9% 100 ml @ 100 mls/hr IVPB Q6HR [facility] Rx#:[id number] Output: Urine 1115 345 410 Other: Voiding Method Indwelling Catheter Indwelling Catheter - Exam GENERAL EXAM: 36-year-old white male, with developmental delay, small statured, appears younger than stated age, in significant respiratory distress, tachypneic with a respiratory rate of 28-36 breaths per minute, on BiPAP support with pressures of 18/7 and FiO2 about 60%, patient is awake, opening eyes to voice, but not verbally responding, patient is nonverbal at baseline, patient is on a bear hugger warmer, patient's temperature has been improving and patient's temp is 97.6 on today's labs, minute ventilation is improved and is down to 8.6 L/m compared to 19 L 48 hours ago HEAD: Normocephalic/atraumatic. EYES: Normal reaction of pupils, equal size. Conjunctiva pink, sclera white. NOSE: Clear with pink turbinates. THROAT: No erythema or exudates. NECK: No masses, no JVD, no thyroid enlargement, no adenopathy. CHEST: No chest wall deformity. Symmetrical expansion. LUNGS: Equal air entry with no crackles, wheeze, rhonchi or dullness. CVS: Regular rate and rhythm, normal S1 and S2, no gallops, no murmurs, no rubs ABDOMEN: Soft, nontender. No hepatosplenomegaly, normal bowel sounds, no guarding or rigidity. EXTREMITIES: No clubbing, no edema, no cyanosis, 2+ pulses and upper and lower extremities. MUSCULOSKELETAL: Muscle strength and tone normal. SPINE: No scoliosis or deformity SKIN: No rashes CENTRAL NERVOUS SYSTEM: opens eyes to voice, less tachypneic breathing fairly comfortably - Labs CBC & Chem 7: 11/20/21 06:27 11/20/21 06:27 Labs: Abnormal Lab Results - Last 24 Hours (Table) 11/19/21 11/19/21 11/19/21 Range/Units 07:29 07:29 20:11 WBC 18.0 H (3.8-10.6) k/uL RBC (4.30-5.90) m/uL Hgb (13.0-17.5) gm/dL Hct (39.0-53.0) % RDW (11.5-15.5) % Plt Count 54 L (150-450) k/uL Neutrophils # (Manual) 9.70 H (1.3-7.7) k/uL Monocytes # (Manual) 2.52 H (0-1.0) k/uL Metamyelocytes # (Man) 1.44 H (0) k/uL Myelocytes # (Manual) 0.72 H (0) k/uL Nucleated RBCs 2 H (0-0) /100 WBC Sodium 149 H (137-145) mmol/L Chloride 112 H (98-107) mmol/L Carbon Dioxide 32 H (22-30) mmol/L BUN (9-20) mg/dL Glucose 100 H (74-99) mg/dL POC Glucose (mg/dL) 109 H (75-99) mg/dL AST (17-59) U/L Alkaline Phosphatase 147 H (38-126) U/L Total Protein 6.0 L (6.3-8.2) g/dL Albumin 2.4 L (3.5-5.0) g/dL 11/20/21 11/20/21 11/20/21 Range/Units 06:27 06:27 08:28 WBC 14.4 H (3.8-10.6) k/uL RBC 2.54 L (4.30-5.90) m/uL Hgb 7.0 L (13.0-17.5) gm/dL Hct 21.0 L (39.0-53.0) % RDW 22.1 H (11.5-15.5) % Plt Count 48 L (150-450) k/uL Neutrophils # (Manual) (1.3-7.7) k/uL Monocytes # (Manual) (0-1.0) k/uL Metamyelocytes # (Man) (0) k/uL Myelocytes # (Manual) (0) k/uL Nucleated RBCs (0-0) /100 WBC Sodium 149 H (137-145) mmol/L Chloride 111 H (98-107) mmol/L Carbon Dioxide (22-30) mmol/L BUN 22 H (9-20) mg/dL Glucose (74-99) mg/dL POC Glucose (mg/dL) 101 H (75-99) mg/dL AST 63 H (17-59) U/L Alkaline Phosphatase 151 H (38-126) U/L Total Protein 5.7 L (6.3-8.2) g/dL Albumin 2.3 L (3.5-5.0) g/dL Microbiology - Last 24 Hours (Table) 11/18/21 00:10 Blood Culture - Preliminary Blood No Growth after 48 hours 11/18/21 00:03 Blood Culture - Preliminary Blood No Growth after 48 hours Assessment and Plan Plan: Assessment: #1. Acute hypoxic respiratory failure related to acute pneumonia, possibly related to acute aspiration. COVID-19 PCR was negative. Patient is currently on BiPAP support with pressures of 14/75-100%, doing poorly, poorly responsive, hypothermic. On today's labs patient is still BiPAP dependent, still with significant work of breathing, poorly responsive, but no longer hypothermic #2. Lactic acidosis related to the above, #3. Hypothermia related to sepsis, improved #4. Thrombocytopenia possibly related to sepsis, worsened #5. Anemia, with no clear evidence of bleeding, of unknown etiology #6. Seizure disorder #7. History of developmental delay #8. Patient is nonverbal at baseline #9. History of meningitis with brain injury at 7 weeks of age Plan: Overall there seems to be some improvement in his pattern of breathing, minute ventilation, respiratory rate, and temperature We'll continue BiPAP support, continue weaning down the FiO2, which is currently down to 65% We'll get a dose of IV Lasix Continue Zosyn We'll try to place a NG-tube, initiate tube feedings , and free water flushes 200 mL every 6 hours If NG tube is placed, we'll restart patient's oral medications Monitor for seizures, continue IV Depakote Continue Protonix, continue SCDs for DVT prophylaxis We'll continue to follow his clinical course Head of the bed up at least 30 at all times, maintain aspiration precautions Continue supportive treatment I performed a history & physical examination of the patient and discussed their management with my nurse practitioner, Carrol Donohue. I reviewed the nurse practitioner's note and agree with the documented findings and plan of care. Lung sounds are positive for dim breath sounds throughout the lung galicia. The findings and the impression was discussed with the patient. I attest to the documentation by the nurse practitioner. Time with Patient: Greater than 30
--- NOTE | 2021-11-20 10:44 | XR ---
EXAMINATION TYPE: XR chest 1V portable DATE OF EXAM: 11/20/2021 COMPARISON: 11/20/2021 HISTORY: Chest pain TECHNIQUE: Single frontal view of the chest is obtained. FINDINGS: NG tube is seen coursing into the stomach. There is increased density left lower lobe which may refle ct a combination of infiltrate, atelectasis and effusion. Patchy infiltrate persists throughout the r ight upper lobe and right perihilar region. IMPRESSION: 1. NG tube is appropriately placed.
[2021-11-20 11:20] LABS: Glucose,Whole Blood 94 mg/dL (75-99)
[2021-11-20 11:28] LABS: Band Neutrophils % 4 %; Eosinophils # (M) 0.14 k/uL (0-0.7); Metamyelocytes # (M) 0.29 k/uL (0); Metamyelocytes % 2 %; Myelocytes # (M) 0.29 k/uL (0); Myelocytes % 2 %; Neutrophils % (M) 56 %; Nucleated Red Blood Cells 1 /100 WBC (0-0); Total Cells Counted 200
[2021-11-20 11:29] LABS: Lymphocytes # (M) 3.72 k/uL (1.0-4.8); Monocytes # (M) 1.57 k/uL (0-1.0); WBC 14.3 k/uL (3.8-10.6)
[2021-11-20 11:31] LABS: Toxic Granulation Present; Toxic Vacuolation Present
[2021-11-20 13:22] LABS: T4, Free (Free Thyroxine) 0.85 ng/dL (0.78-2.19)
--- NOTE | 2021-11-20 14:58 | P.PN ---
Subjective Progress Note Date: 11/20/21 This patient is admitted with respiratory failure related to aspiration pneumonia. Patient seemed to be showing some improvement. Chest x-ray shows continued infiltrate on the right side and also left-sided basilar infiltrate or atelectasis. Patient heart rate in the 70s. Patient's urine output is fair and has received few doses of Lasix. Continues to be on antibiotics. Showing some respond to verbal stimuli. Noncommunicative. No arrhythmias noted. Continue current management. We will follow as needed Objective - Vital Signs Vital signs: Vital Signs Temp 97.5 F L 11/20/21 12:00 Pulse 67 11/20/21 14:00 Resp 27 H 11/20/21 14:00 BP 118/69 11/20/21 14:00 Pulse Ox 93 L 11/20/21 14:00 Intake & Output 11/19/21 11/20/21 11/20/21 18:59 06:59 18:59 Intake Total 930 595 805 Output Total 5870 184 4011 Balance -185 250 -370 Weight 51.4 kg 51.4 kg Intake: IV 630 595 385 Dextrose 10% in Water 1, 600 550 350 000 ml In Empty Bag 1 bag @ 50 mls/hr IV .Q20H [facility] Rx#:[id number] Sodium Chloride 0.9% 1, 30 45 35 000 ml @ 20 mls/hr IV . Q24H [facility] Rx#:[id number] Intake, IV Titration 300 200 Amount Piperacillin-Tazobactam 3 200 100 .375 gm In Sodium Chloride 0.9% 100 ml @ 25 mls/hr IVPB Q8HR [facility] Rx# :[id number] Valproate Sodium 375 mg 100 100 In Sodium Chloride 0.9% 100 ml @ 100 mls/hr IVPB Q6HR [facility] Rx#:[id number] Tube Feeding 20 Other 200 Output: Urine 2411 435 9624 Other: Voiding Method Indwelling Catheter Indwelling Catheter Indwelling Catheter - Exam GENERAL EXAM: Patient responds to verbal stimuli, noncommunicative HEENT: Normocephalic. Normal reaction of pupils, equal size, normal range of extraocular motion. No erythema or exudates in the throat. NECK: No masses, no nuchal rigidity. CHEST: No chest wall deformity. LUNGS: Diminished breath sounds HEART: S1 and S2 normal with no audible mumurs or gallops. Regular rhythm, femorals equal on both sides.. ABDOMEN: No hepatosplenomegaly, normal bowel sounds, no guarding or rigidity. SKIN: No rashes CENTRAL NERVOUS SYSTEM: No focal deficits. EXTREMITIES: No cyanosis, clubbing or edema. - Labs CBC & Chem 7: 11/20/21 06:27 11/20/21 06:27 Labs: Abnormal Lab Results - Last 24 Hours (Table) 11/18/21 11/19/21 11/20/21 Range/Units 09:42 20:11 06:27 WBC 14.3 H (3.8-10.6) k/uL RBC 2.54 L (4.30-5.90) m/uL Hgb 7.0 L (13.0-17.5) gm/dL Hct 21.0 L (39.0-53.0) % RDW 22.1 H (11.5-15.5) % Plt Count 48 L (150-450) k/uL Neutrophils # (Manual) 8.50 H (1.3-7.7) k/uL Monocytes # (Manual) 1.57 H (0-1.0) k/uL Metamyelocytes # (Man) 0.29 H (0) k/uL Myelocytes # (Manual) 0.29 H (0) k/uL Nucleated RBCs 1 H (0-0) /100 WBC Sodium (137-145) mmol/L Chloride (98-107) mmol/L BUN (9-20) mg/dL POC Glucose (mg/dL) 109 H (75-99) mg/dL AST (17-59) U/L Alkaline Phosphatase (38-126) U/L Total Protein (6.3-8.2) g/dL Albumin (3.5-5.0) g/dL TSH 4.710 H (0.465-4.680) mIU/L 11/20/21 11/20/21 Range/Units 06:27 08:28 WBC (3.8-10.6) k/uL RBC (4.30-5.90) m/uL Hgb (13.0-17.5) gm/dL Hct (39.0-53.0) % RDW (11.5-15.5) % Plt Count (150-450) k/uL Neutrophils # (Manual) (1.3-7.7) k/uL Monocytes # (Manual) (0-1.0) k/uL Metamyelocytes # (Man) (0) k/uL Myelocytes # (Manual) (0) k/uL Nucleated RBCs (0-0) /100 WBC Sodium 149 H (137-145) mmol/L Chloride 111 H (98-107) mmol/L BUN 22 H (9-20) mg/dL POC Glucose (mg/dL) 101 H (75-99) mg/dL AST 63 H (17-59) U/L Alkaline Phosphatase 151 H (38-126) U/L Total Protein 5.7 L (6.3-8.2) g/dL Albumin 2.3 L (3.5-5.0) g/dL TSH (0.465-4.680) mIU/L Microbiology - Last 24 Hours (Table) 11/18/21 00:10 Blood Culture - Preliminary Blood No Growth after 48 hours 11/18/21 00:03 Blood Culture - Preliminary Blood No Growth after 48 hours Assessment and Plan (1) Acute respiratory failure Current Visit: Yes Status: Acute Code(s): J96.00 - ACUTE RESPIRATORY FAILURE, UNSP W HYPOXIA OR HYPERCAPNIA SNOMED Code(s): 84105305 (2) Pneumonia Current Visit: Yes Status: Acute Code(s): J18.9 - PNEUMONIA, UNSPECIFIED ORGANISM SNOMED Code(s): 278618645 (3) Sepsis Current Visit: Yes Status: Acute Code(s): A41.9 - SEPSIS, UNSPECIFIED ORGANISM SNOMED Code(s): 00897483 (4) Sinus bradycardia Current Visit: Yes Status: Acute Code(s): R00.1 - BRADYCARDIA, UNSPECIFIED SNOMED Code(s): 15237317 Plan: Patient seemed to be responding to the treatment. Heart rate in the 70s. No acute cardiac issues. Continue management of respiratory failure and underlying pneumonia which seemed to be related to aspiration. We'll follow as needed
[2021-11-20 16:20] LABS: Glucose,Whole Blood 106 mg/dL (75-99)
[2021-11-20 23:49] LABS: Glucose,Whole Blood 137 mg/dL (75-99)
[2021-11-21] MEDS: VALPROATE SODIUM IVPB SCH ×5 (00:17→23:53)
[2021-11-21] MEDS: SODIUM CHLORIDE 0.9% IVPB SCH ×5 (00:17→23:53)
[2021-11-21] MEDS: PIPERACILLIN-TAZOBACTAM 3.375 GM in SODIUM CHLORIDE 0.9% 100 ML IVPB SCH ×4 (00:18→23:53)
[2021-11-21 06:18] LABS: Glucose,Whole Blood 118 mg/dL (75-99)
--- NOTE | 2021-11-21 07:33 | XR ---
EXAMINATION TYPE: XR chest 1V portable DATE OF EXAM: 11/21/2021 Comparison: 11/20/2021 Clinical History: 36-year-old male shortness of breath Findings: NG tube tip just below the GE junction level. There is now complete white out of the left hemithorax probably due to combination of pleural effusion and significant volume loss. There is pronounced left leroy patient rotation altering the normal cardiac and mediastinal contours. Groundglass and interstit ial changes in the right lung are similar. Impression: 1. New complete white out of the left hemithorax possibly due to combination of pleural effusion and significant volume loss/collapse. 2. Groundglass and interstitial changes throughout the right lung are similar.
[2021-11-21 08:03] LABS: ALT 11 U/L (4-49); AST 48 U/L (17-59); Alkaline Phosphatase 175 U/L (38-126); Blood Urea Nitrogen 19 mg/dL (9-20); Calcium 8.6 mg/dL (8.4-10.2); Chloride 102 mmol/L (98-107); Glucose 120 mg/dL (74-99); Potassium 3.3 mmol/L (3.5-5.1); Sodium 140 mmol/L (137-145); Total Bilirubin 0.6 mg/dL (0.2-1.3)
[2021-11-21 08:06] LABS: Anisocytosis Moderate; HCT 22.4 % (39.0-53.0); HGB 7.3 gm/dL (13.0-17.5); Hypochromasia Moderate; MCH 27.1 pg (25.0-35.0); MCHC 32.5 g/dL (31.0-37.0); MCV 83.5 fL (80.0-100.0); Mean Platelet Volume 9.5; Microcytosis Slight; Poikilocytosis Slight; RBC 2.69 m/uL (4.30-5.90); RDW 22.2 % (11.5-15.5); WBC 12.8 k/uL (3.8-10.6)
[2021-11-21 08:07] LABS: Platelet Count 49 k/uL (150-450)
[2021-11-21 08:17] LABS: African American GFR (CKD) >90 (>60 ml/min/1.73 sqM); Albumin 2.3 g/dL (3.5-5.0); Anion Gap 6 mmol/L; Carbon Dioxide 32 mmol/L (22-30); Non-African American GFR(CKD) >90 (>60 ml/min/1.73 sqM); Total Protein 5.6 g/dL (6.3-8.2)
[2021-11-21] MEDS: ENOXAPARIN 40 MG/0.4 ML SYRINGE SQ SCH (08:43)
[2021-11-21] MEDS: PANTOPRAZOLE 40 MG/10 ML VIAL IVP SCH (08:43)
--- NOTE | 2021-11-21 09:32 | P.PN ---
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 EMS was called for respiratory distress and al tered mental status. Apparently patient was seen normal 30 minutes prior to their evaluation. Patient had progressive shortness of breath, lethargy. At baseline patient is alert but nonverbal. COVID-19 PCR was negative, and patient is vaccinated. Patient had a pulse ox of only 60% on room air upon EMS arrival, and his extremities were cold to touch. No previous history of pulmonary disease or heart failure. Patient has had previous history of pneumonia. Chest x-ray showed pulmonary interstitial and airspace edema, and left lower lobe pneumonia. Patient was significantly tachypneic, hypoxic, his CODE STATUS is DO NOT RESUSCITATE, and his legal guardian wanted supportive treatment with antibiotics and BiPAP support, patient was placed on BiPAP support with pressures of 14/7 and FiO2 100%. Patient is hypothermic with a temp of 87F, his blood pressure was borderline low on arrival at 92/47, and has been as low as 88/60. His laboratory findings showed a white count of 5.7, hemoglobin of 9.4, platelet count of 76, INR of 1.3, sodium of 143, potassium is 4.1, CO2 of 37, BUN 38, creatinine 0.78, plasma lactic acid of 2.2, alk phos was elevated at 202, but AST and ALT were within normal limits at 35 and 12 respectively, troponin was 0.055, ammonia level was 11, proBNP was 384. Urinalysis showed 3+ glucose, trace protein but no evidence of infection, valproic acid level was elevated at 124. COVID-19 PCR was negative as mentioned above. Patient was given a dose of azithromycin and Rocephin in the emergency department, he was given IV fluids, he was placed on the blanket warmer, blood cultures have been sent. he was admitted to the intensive care unit. This morning he seen in the ICU, on BiPAP at 14 and 7 and FiO2 100%, he is tachypneic with a respiratory rate in the 55-60 breaths per minute. He is poorly responsive, he is using accessory muscles of breathing. he still hypothermic but the temp is improved and is up to 94.8F, he remains on the blanket warmer. Blood pressure is 116/72, is in sinus mechanism, tachycardic. His blood gas showed pO2 of 58, pCO 2 of 61, and pH of 7.35, this was done on the FiO2 of 100%. We spoke to the mother on the phone who is his legal guardian, we updated her on the patient's condition, and that he is doing quite poorly. She stated that she would like to continue supportive treatment with antibiotics, fluids and BiPAP support. She is not ready to make him comfort care. On 11/19/2021 patient seen in follow-up in intensive care unit, he remains on BiPAP support with pressures of 18/7 and FiO2 has been dropped down to 80%, patient seems to be oxygenating slightly better compared to yesterday, still quite tachypneic, with a respiratory rate in the 40s and 50s. Still poorly responsive, and his work of breathing is still quite significant, although on today's exam his minute ventilation is seems to be down to 9.8 compared to 19 L/m on yesterday's exam. Today's chest x-ray shows pulmonary vascular congestio n and a large right pleural effusion, and a small left pleural effusion. Patient has received a dose of IV Lasix early this morning, he continues on antibiotics with Zosyn, remains on breathing treatments. His temperature has improved, and this morning his temperature is 97.6F, blood pressure stable, it's 100/57, with a mean of 71, and patient is not requiring vasopressor support, yesterday patient was experiencing frequent episodes of hypoglycemia, and he was requiring frequent IV pushes of 50% dextrose, we placed the patient on 10% dextrose infusion at 75 ML per hour, today the rate has been decreased down to 50 ML per hour, he still has pointed was seen at a rate of 10 ML per hour. Today's labs have been reviewed, his white blood cell count is increased and is up to 18.4, hemoglobin is 8.0, his sodium is 149, potassium is 3.9, chloride is 112, CO2 is 32, BUN is 18 creatinine 0.77. His lactic acid was 2.7 on yesterday's labs. His urine output is in the order of 40-50 ML per hour. Patient has been nothing by mouth due to being BiPAP dependent, he has not been able to take aneurysmal oral medications, he is on IV Protonix and Lovenox for GI and DVT prophylaxis. On 11/20/2021 patient is seen in follow-up in the intensive care unit, he is opening his eyes to voice today, however he is not responding verbally. Patient is nonverbal at baseline according to the medical records. He seems to be breathing more comfortably today, remains on BiPAP with pressures of 18/7 and F iO2 of 60%, with a pulse ox of 95%, less tachypneic compared to previous exams, his respiratory rate is ranging between 28-36 breaths per minute, tidal volume was 268, his minute ventilation is 8.6. He did have an episode of hypothermia this morning with a temp of 94.1 axillary, she is on a blanket warmer right now, but overall his temperature has been better controlled, and he's had less episodes of hypothermia in the last 24 hours. Blood pressure is 106/61, patient is not requiring any vasopressor support, he remains on D10 at 50 ML per hour, and 0.9 normal saline at a rate of 20 ML per hour. Today's chest x-ray has been reviewed, showing persistent but improving infiltrate in the right lung, and worsening infiltrate throughout the left lung. Patient has received intermittent doses of Lasix, he has produced 1.4 L in urine output in the last 24 hours, his slightly and positive fluid balance, +65 ML over the last 24 hours. Patient is in sinus mechanism. Patient continues on Zosyn for empiric antibiotic coverage, so far his blood cultures have shown no growth. Today's labs have been reviewed, white blood cell count is improving and is down to 14.4, hemoglobin 7.0, platelet count is 48, sodium is 149, potassium is 3.9, chloride is 111, CO2 30, BUN is 22, creatinine 0.79, AST is 63, ALT is 11, and alkaline phosphatase is 151. She is oral medications have been discontinued all except for Depakote which has been switched over to IV, patient continues on breathing treatments, and as needed Ativan for possibility of breakthrough seizures. Patient has not had any seizure activity observed. Patient had episode of bradycardia, he was seen by cardiology, echocardiogram showed preserved LV function with EF of 60-65%, mild mitral regurg, mild tricuspid regurg, and a small generalized pericardial effusion. Overall clinically patient seems to have improved since admission, we'll attempt to get the patient of trial on high flow nasal cannula, to put her NG tube and and possibly start nutrition, hydration, and restart oral medications The patient is seen today 11/21/2021 in follow-up in the intensive care unit. He is currently positioned on his left side. He is arousable. He opens his eyes spontaneously. He does remain on BiPAP 18/7 and 60% FiO2. He is on D10 at 50 mL per hour. He is on antibiotics in the form of Zosyn. He did have a right nare nasogastric tube placed yesterday. He's been initiated on Jevity at 40 ML's per hour. He is currently afebrile. Hemodynamically stable. Respiratory rate improved currently at 21. White count 12.8. Hemoglobin 7.3. Platelet count 49,000. Sodium 140. Potassium 3.3. Bicarb 32. Creatinine 0.60. Gluco se 120. AST 48. ALT 11. He remains on DuoNeb inhalations. Lovenox for DVT prophylaxis. Protonix for GI prophylaxis. He's been back on valproic acid IV. Urine output has been adequate. He is currently in a positive balance of 690 ML's. Dick catheter remains in place. Currently 51.5 kg. Chest x-ray is now showing near complete opacification of the left lung. The cultures revealing no growth to date. Objective - Vital Signs Vital signs: Vital Signs Temp 97.5 F L 11/21/21 08:00 Pulse 73 11/21/21 09:00 Resp 39 H 11/21/21 09:00 BP 112/66 11/21/21 09:00 Pulse Ox 97 11/21/21 09:00 Intake & Output 11/20/21 11/21/21 11/21/21 18:59 06:59 18:59 Intake Total 1530 1530 365 Output Total 1390 350 135 Balance 140 1180 230 Weight 51.4 kg 51.5 kg Intake: IV 660 860 155 Dextrose 10% in Water 1, 600 600 150 000 ml In Empty Bag 1 bag @ 50 mls/hr IV .Q20H [facility] Rx#:[id number] Piperacillin-Tazobactam 3 100 .375 gm In Sodium Chloride 0.9% 100 ml @ 25 mls/hr IVPB Q8HR [facility] Rx# :[id number] Sodium Chloride 0.9% 1, 60 60 5 000 ml @ 20 mls/hr IV . Q24H [facility] Rx#:[id number] Valproate Sodium 375 mg 100 In Sodium Chloride 0.9% 100 ml @ 100 mls/hr IVPB Q6HR [facility] Rx#:[id number] Intake, IV Titration 400 100 Amount Piperacillin-Tazobactam 3 100 100 .375 gm In Sodium Chloride 0.9% 100 ml @ 25 mls/hr IVPB Q8HR [facility] Rx# :[id number] Valproate Sodium 375 mg 300 In Sodium Chloride 0.9% 100 ml @ 100 mls/hr IVPB Q6HR [facility] Rx#:[id number] Tube Feeding 70 270 110 Other 400 400 Output: Urine 1390 350 135 Other: Voiding Method Indwelling Catheter Indwelling Catheter Indwelling Catheter - Exam GENERAL EXAM: This is a 36-year-old male patient, with developmental delay, small statured, appears younger than stated age, in no significant respiratory distress, on BiPAP support with pressures of 18/7 and FiO2 about 60% The patient is awake, opening eyes to voice, but not verbally responding, patient is nonverbal at baseline, patient is on a bear hugger warmer, patient's temperature has been improving and patient's temp is 97.5 on today's labs HEAD: Normocephalic/atraumatic. EYES: Normal reaction of pupils, equal size. Conjunctiva pink, sclera white. NOSE: Right nare NG tube in place. Clear with pink turbinates. THROAT: No erythema or exudates. NECK: No masses, no JVD, no thyroid enlargement, no adenopathy. CHEST: No chest wall deformity. Symmetrical expansion. LUNGS: Equal air entry with crackles in the right lung, diminished throughout the left lung. CVS: Regular rate and rhythm, normal S1 and S2, no gallops, no murmurs, no rubs ABDOMEN: Soft, nontender. No hepatosplenomegaly, normal bowel sounds, no guarding or rigidity. EXTREMITIES: No clubbing, no edema, no cyanosis, 2+ pulses and upper and lower extremities. MUSCULOSKELETAL: Contractures. SPINE: No scoliosis or deformity SKIN: No rashes CENTRAL NERVOUS SYSTEM: Opens eyes to voice, breathing fairly comfortably - Labs CBC & Chem 7: 11/21/21 07:32 11/21/21 07:32 Labs: Abnormal Lab Results - Last 24 Hours (Table) 11/18/21 11/20/21 11/20/21 Range/Units 09:42 06:27 16:18 WBC 14.3 H (3.8-10.6) k/uL RBC (4.30-5.90) m/uL Hgb (13.0-17.5) gm/dL Hct (39.0-53.0) % RDW (11.5-15.5) % Plt Count (150-450) k/uL Neutrophils # (Manual) 8.50 H (1.3-7.7) k/uL Monocytes # (Manual) 1.57 H (0-1.0) k/uL Metamyelocytes # (Man) 0.29 H (0) k/uL Myelocytes # (Manual) 0.29 H (0) k/uL Nucleated RBCs 1 H (0-0) /100 WBC Potassium (3.5-5.1) mmol/L Carbon Dioxide (22-30) mmol/L Creatinine (0.66-1.25) mg/dL Glucose (74-99) mg/dL POC Glucose (mg/dL) 106 H (75-99) mg/dL Alkaline Phosphatase (38-126) U/L Total Protein (6.3-8.2) g/dL Albumin (3.5-5.0) g/dL TSH 4.710 H (0.465-4.680) mIU/L 11/20/21 11/21/21 11/21/21 Range/Units 23:46 06:17 07:32 WBC 12.8 H (3.8-10.6) k/uL RBC 2.69 L (4.30-5.90) m/uL Hgb 7.3 L (13.0-17.5) gm/dL Hct 22.4 L (39.0-53.0) % RDW 22.2 H (11.5-15.5) % Plt Count 49 L (150-450) k/uL Neutrophils # (Manual) (1.3-7.7) k/uL Monocytes # (Manual) (0-1.0) k/uL Metamyelocytes # (Man) (0) k/uL Myelocytes # (Manual) (0) k/uL Nucleated RBCs (0-0) /100 WBC Potassium (3.5-5.1) mmol/L Carbon Dioxide (22-30) mmol/L Creatinine (0.66-1.25) mg/dL Glucose (74-99) mg/dL POC Glucose (mg/dL) 137 H 118 H (75-99) mg/dL Alkaline Phosphatase (38-126) U/L Total Protein (6.3-8.2) g/dL Albumin (3.5-5.0) g/dL TSH (0.465-4.680) mIU/L 11/21/21 Range/Units 07:32 WBC (3.8-10.6) k/uL RBC (4.30-5.90) m/uL Hgb (13.0-17.5) gm/dL Hct (39.0-53.0) % RDW (11.5-15.5) % Plt Count (150-450) k/uL Neutrophils # (Manual) (1.3-7.7) k/uL Monocytes # (Manual) (0-1.0) k/uL Metamyelocytes # (Man) (0) k/uL Myelocytes # (Manual) (0) k/uL Nucleated RBCs (0-0) /100 WBC Potassium 3.3 L (3.5-5.1) mmol/L Carbon Dioxide 32 H (22-30) mmol/L Creatinine 0.60 L (0.66-1.25) mg/dL Glucose 120 H (74-99) mg/dL POC Glucose (mg/dL) (75-99) mg/dL Alkaline Phosphatase 175 H (38-126) U/L Total Protein 5.6 L (6.3-8.2) g/dL Albumin 2.3 L (3.5-5.0) g/dL TSH (0.465-4.680) mIU/L Microbiology - Last 24 Hours (Table) 11/18/21 00:10 Blood Culture - Preliminary Blood No Growth after 72 hours 11/18/21 00:03 Blood Culture - Preliminary Blood No Growth after 72 hours Assessment and Plan Assessment: 1. Acute hypoxic respiratory failure related to acute pneumonia, possibly related to acute aspiration. COVID-19 PCR was negative. Patient is currently on BiPAP support with pressures of 14/75 and 60%. Temperature improving. Less tachycardic. Remains on Zosyn 2 Lactic acidosis related to the above, 3 Hypothermia related to sepsis, improved 4 Thrombocytopenia possibly related to sepsis, current platelets at 49,000 5 Anemia, with no clear evidence of bleeding, of unknown etiology, currently hemoglobin 7.3 6 Seizure disorder 7 History of developmental delay 8 Patient is nonverbal at baseline 9 History of meningitis with brain injury at 7 weeks of age Plan: The patient was seen and evaluated X-ray and labs reviewed Nasogastric tube placed, continued on Jevity Reorder oral medications Discontinue D10 infusion Initiate D5 0.9 at 50 MLS per hour Continue to titrate down the FiO2 as tolerated Chest physiotherapy Requiring repositioning as tolerated Condition remains guarded We will continue to follow and make further recommendations based on his clinical status I, the cosigning physician, performed a history & physical examination of the patient. Lungs sounds faint crackles in the right lung, diminished throughout the left lung. Maintaining O2 saturations in the 90s on BiPAP 18/7 and 60% FiO2. I discussed the assessment and plan of care with my nurse practitioner, Rhiannon Barrera. I attest to the above note as dictated by her.
[2021-11-21 09:41] LABS: Nucleated Red Blood Cells 0 /100 WBC (0-0)
[2021-11-21 09:45] LABS: Band Neutrophils % 4 %; Metamyelocytes # (M) 0.13 k/uL (0); Metamyelocytes % 1 %; Monocytes # (M) 1.15 k/uL (0-1.0); Myelocytes # (M) 0.13 k/uL (0); Myelocytes % 1 %; Neutrophils % (M) 61 %; Total Cells Counted 200
[2021-11-21 09:46] LABS: Toxic Granulation Present
[2021-11-21 09:47] LABS: Toxic Vacuolation Present
[2021-11-21] MEDS: DEXTROSE 5%-0.9% NACL 1,000 ML IV SCH (10:35)
[2021-11-21] MEDS: POTASSIUM BICARBONATE/CIT AC 20 MEQ TABLET.EFF PO SCH ×2 (10:35→10:58)
[2021-11-21] MEDS: risperiDONE 0.25 MG TAB PO SCH (10:35)
[2021-11-21 11:49] LABS: Glucose,Whole Blood 102 mg/dL (75-99)
--- NOTE | 2021-11-21 16:43 | P.PN ---
Subjective Progress Note Date: 11/21/21 Tolu Sánchez, is a 36-year-old male, well-known to my practice , with history of physical debility , mental debility , and seizure disorder , [facility] a [facility] at a [facility] ,who presented to [facility] with a chief complaint of mental status changes and worsening shortness of breath. He was evaluated in the emergency room vital examination on presentation revealed a temperature of 87 pulse 56 respiration 49 blood pressure 102/58 pulse ox 75% on 15 L nonrebreather mask Laboratory data revealed a white blood count of 5.7 hemoglobin 9.4 platelet count 76 sodium 148 potassium 4.1 chloride 37 BUN 38 creatinine 0.78 lactic acid 2.7 troponin 0.055 BNP 384 COVID-19 PCR was negative Chest x-ray done in the emergency room revealed the radiology there was evidence of pulmonary edema, and evidence of left lower lobe pneumonia, EKG revealed supraventricular bradycardia with nonspecific T-wave abnormality. Patient was admitted to ICU for further evaluation and treatment On 11/19/2021 patient was seen and examined in the ICU, his vital exam reveals a temperature of 97.6 pulse 89 respiration 43 blood pressure 100/57 pulse ox 99% on BiPAP with FiO2 of 80% he is poorly responsive he moves his extremity to stimuli he is nonverbal, laboratory data today reveals a white blood count of 18.0 hemoglobin 8.0 platelet count 54 sodium 149 potassium 3.9 chloride 112 CO2 32 BUN 18 creatinine 0.77 On 11/20/2021 patient remains in the intensive care unit on BiPAP. Patient hypothermic 94.1 Bear hugger blanket increased. Current vitals temp 94.1, heart rate 67 and respiratory rate 35, blood pressure 106/61 patient satting 94% on BiPAP. Patient remains on IV antibiotics per nursing staff attempts will be made to place NG tube and restart tube feedings On 11/21/2021 patient was seen and examined in the ICU, he is maintained on BiPAP FiO2 is 60% patient is drowsy but responds to stimuli. Vital exam reveals a temperature of 97.5 pulse 65 respiration 23 blood pressure 114/68 pulse ox is 98% on BiPAP with FiO2 of 60% white blood count 12.8 hemoglobin 7.3 platelet count 14 9 sodium 140 potassium 3.3 chloride 102 CO2 32 BUN 19 creatinine 0.6 chest x-ray reveals new complete whiteout of the left hemithorax. Patient is clinically slightly better, pulmonary critical care are following Objective - Vital Signs Vital signs: Vital Signs Temp 97.4 F L 11/21/21 12:00 Pulse 68 11/21/21 12:00 Resp 25 H 11/21/21 12:00 BP 104/64 11/21/21 12:00 Pulse Ox 96 11/21/21 12:00 Intake & Output 11/20/21 11/21/21 11/21/21 18:59 06:59 18:59 Intake Total 1530 1530 635 Output Total 1390 350 240 Balance 140 1180 395 Weight 51.4 kg 51.5 kg Intake: IV 660 860 305 Dextrose 10% in Water 1, 600 600 300 000 ml In Empty Bag 1 bag @ 50 mls/hr IV .Q20H [facility] Rx#:[id number] Piperacillin-Tazobactam 3 100 .375 gm In Sodium Chloride 0.9% 100 ml @ 25 mls/hr IVPB Q8HR [facility] Rx# :[id number] Sodium Chloride 0.9% 1, 60 60 5 000 ml @ 20 mls/hr IV . Q24H [facility] Rx#:[id number] Valproate Sodium 375 mg 100 In Sodium Chloride 0.9% 100 ml @ 100 mls/hr IVPB Q6HR [facility] Rx#:[id number] Intake, IV Titration 400 100 Amount Piperacillin-Tazobactam 3 100 100 .375 gm In Sodium Chloride 0.9% 100 ml @ 25 mls/hr IVPB Q8HR [facility] Rx# :[id number] Valproate Sodium 375 mg 300 In Sodium Chloride 0.9% 100 ml @ 100 mls/hr IVPB Q6HR [facility] Rx#:[id number] Tube Feeding 70 270 230 Other 400 400 Output: Urine 1390 350 240 Other: Voiding Method Indwelling Catheter Indwelling Catheter Indwelling Catheter - Exam In general patient is maintained on BiPAP he is responsive to stimuli HEENT head normocephalic and atraumatic Neck is supple no JVD no goiter no lymphadenopathy no carotid bruit Chest examination is clear to auscultation no crackles no wheezing Cardiac exam reveals regular heart sounds S1 and S2 no gallops no murmurs Abdomen is soft nontender no organomegaly with normal bowel sounds Extremity exam reveals no edema no cyanosis or clubbing Neurological examination reveals no gross focal deficits - Labs CBC & Chem 7: 11/21/21 07:32 11/21/21 07:32 Labs: Abnormal Lab Results - Last 24 Hours (Table) 11/20/21 11/20/21 11/21/21 Range/Units 16:18 23:46 06:17 WBC (3.8-10.6) k/uL RBC (4.30-5.90) m/uL Hgb (13.0-17.5) gm/dL Hct (39.0-53.0) % RDW (11.5-15.5) % Plt Count (150-450) k/uL Neutrophils # (Manual) (1.3-7.7) k/uL Monocytes # (Manual) (0-1.0) k/uL Metamyelocytes # (Man) (0) k/uL Myelocytes # (Manual) (0) k/uL Potassium (3.5-5.1) mmol/L Carbon Dioxide (22-30) mmol/L Creatinine (0.66-1.25) mg/dL Glucose (74-99) mg/dL POC Glucose (mg/dL) 106 H 137 H 118 H (75-99) mg/dL Alkaline Phosphatase (38-126) U/L Total Protein (6.3-8.2) g/dL Albumin (3.5-5.0) g/dL 11/21/21 11/21/21 11/21/21 Range/Units 07:32 07:32 11:47 WBC 12.8 H (3.8-10.6) k/uL RBC 2.69 L (4.30-5.90) m/uL Hgb 7.3 L (13.0-17.5) gm/dL Hct 22.4 L (39.0-53.0) % RDW 22.2 H (11.5-15.5) % Plt Count 49 L (150-450) k/uL Neutrophils # (Manual) 8.30 H (1.3-7.7) k/uL Monocytes # (Manual) 1.15 H (0-1.0) k/uL Metamyelocytes # (Man) 0.13 H (0) k/uL Myelocytes # (Manual) 0.13 H (0) k/uL Potassium 3.3 L (3.5-5.1) mmol/L Carbon Dioxide 32 H (22-30) mmol/L Creatinine 0.60 L (0.66-1.25) mg/dL Glucose 120 H (74-99) mg/dL POC Glucose (mg/dL) 102 H (75-99) mg/dL Alkaline Phosphatase 175 H (38-126) U/L Total Protein 5.6 L (6.3-8.2) g/dL Albumin 2.3 L (3.5-5.0) g/dL Microbiology - Last 24 Hours (Table) 11/18/21 00:10 Blood Culture - Preliminary Blood No Growth after 72 hours 11/18/21 00:03 Blood Culture - Preliminary Blood No Growth after 72 hours Assessment and Plan Plan: Pneumonia, likely related to aspiration Acute hypoxic respiratory failure, related to pneumonia, patient was started on BiPAP in the emergency room Sepsis, as evidenced by severe hypothymia, tachypnea, and elevated lactic acid Lactic acidosis Severe hypothermia on presentation related to sepsis Minimal elevation in troponin, doubt cardiac ischemia Chest x-ray revealing pulmonary edema per radiology, however BNP is normal at 384, will check echocardiogram, doubt cardiac origin 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
[2021-11-21 17:39] LABS: Glucose,Whole Blood 129 mg/dL (75-99)
[2021-11-21] MEDS: POTASSIUM BICARBONATE/CIT AC 20 MEQ TABLET.EFF NG-TUBE SCH ×2 (21:48→23:12)
[2021-11-21 23:53] LABS: Glucose,Whole Blood 137 mg/dL (75-99)
[2021-11-22 05:00] LABS: Anisocytosis Moderate; HCT 24.4 % (39.0-53.0); HGB 7.6 gm/dL (13.0-17.5); Hypochromasia Marked; MCH 27.1 pg (25.0-35.0); MCHC 31.1 g/dL (31.0-37.0); MCV 87.2 fL (80.0-100.0); Microcytosis Slight; Poikilocytosis Slight; RDW 21.9 % (11.5-15.5)
[2021-11-22 05:02] LABS: Platelet Count 41 k/uL (150-450)
[2021-11-22 05:22] LABS: ALT 11 U/L (4-49); AST 38 U/L (17-59); African American GFR (CKD) >90 (>60 ml/min/1.73 sqM); Albumin 2.2 g/dL (3.5-5.0); Alkaline Phosphatase 209 U/L (38-126); Anion Gap 1 mmol/L; Blood Urea Nitrogen 16 mg/dL (9-20); Calcium 8.2 mg/dL (8.4-10.2); Carbon Dioxide 37 mmol/L (22-30); Chloride 104 mmol/L (98-107); Glucose 213 mg/dL (74-99); Magnesium 1.9 mg/dL (1.6-2.3); Non-African American GFR(CKD) >90 (>60 ml/min/1.73 sqM); Potassium 3.6 mmol/L (3.5-5.1); Sodium 142 mmol/L (137-145); Total Bilirubin 0.3 mg/dL (0.2-1.3); Total Protein 5.5 g/dL (6.3-8.2)
[2021-11-22 05:24] LABS: Band Neutrophils % 9 %; Metamyelocytes % 4 %; Myelocytes % 2 %; Neutrophils % (M) 49 %; Nucleated Red Blood Cells 2 /100 WBC (0-0); Total Cells Counted 200
[2021-11-22 05:25] LABS: Lymphocytes # (M) 2.58 k/uL (1.0-4.8); Metamyelocytes # (M) 0.37 k/uL (0); Monocytes # (M) 0.74 k/uL (0-1.0); Myelocytes # (M) 0.18 k/uL (0); WBC 9.2 k/uL (3.8-10.6)
[2021-11-22] MEDS: DEXTROSE 5%-0.9% NACL 1,000 ML IV SCH (05:33)
[2021-11-22] MEDS: MAGNESIUM SULFATE-D5W PMX 1 GM in DEXTROSE/WATER 1 100ML.BAG IVPB SCH ×2 (05:33→08:30)
[2021-11-22] MEDS: SODIUM CHLORIDE 0.9% IVPB SCH ×4 (05:34→23:58)
[2021-11-22] MEDS: VALPROATE SODIUM IVPB SCH ×4 (05:34→23:58)
[2021-11-22] MEDS ORDERED: POTASSIUM BICARBONATE/CIT AC 20 MEQ TABLET.EFF NG-TUBE SCH (06:00)
--- NOTE | 2021-11-22 07:35 | XR ---
EXAMINATION TYPE: XR chest 1V portable DATE OF EXAM: 11/22/2021 COMPARISON: 11/21/2021 HISTORY: Chest pain TECHNIQUE: Single frontal view of the chest is obtained. FINDINGS: NG tube is seen coursing into the stomach. Improved aeration left upper and left midlung zones with r esidual opacity left lower lobe. Patchy perihilar and right lower lobe infiltrate right lung. The oss eous structures are intact. IMPRESSION: 1. Improved aeration left lung with residual left lower lobe infiltrate and/or atelectasis with effus ion is patchy right perihilar and right lower lobe infiltrate.
[2021-11-22] MEDS: PANTOPRAZOLE 40 MG/10 ML VIAL IVP SCH (08:31)
[2021-11-22] MEDS: ENOXAPARIN 40 MG/0.4 ML SYRINGE SQ SCH (08:31)
[2021-11-22] MEDS: PIPERACILLIN-TAZOBACTAM 3.375 GM in SODIUM CHLORIDE 0.9% 100 ML IVPB SCH ×3 (08:31→23:58)
[2021-11-22] MEDS: risperiDONE 0.25 MG TAB PO SCH (08:33)
--- NOTE | 2021-11-22 10:00 | P.PN ---
Subjective Progress Note Date: 11/22/21 Tolu Sánchez, is a 36-year-old male, well-known to my practice , with history of physical debility , mental debility , and seizure disorder , patient is a resident at a shelter ,who presented to [facility] with a chief complaint of mental status changes and worsening shortness of breath. He was evaluated in the emergency room vital examination on presentation revealed a temperature of 87 pulse 56 respiration 49 blood pressure 102/58 pulse ox 75% on 15 L nonrebreather mask Laboratory data revealed a white blood count of 5.7 hemoglobin 9.4 platelet count 76 sodium 148 potassium 4.1 chloride 37 BUN 38 creatinine 0.78 lactic acid 2.7 troponin 0.055 BNP 384 COVID-19 PCR was negative Chest x-ray done in the emergency room revealed the radiology there was evidence of pulmonary edema, and evidence of left lower lobe pneumonia, EKG revealed supraventricular bradycardia with nonspecific T-wave abnormality. Patient was admitted to ICU for further evaluation and treatment On 11/19/2021 patient was seen and examined in the ICU, his vital exam reveals a temperature of 97.6 pulse 89 respiration 43 blood pressure 100/57 pulse ox 99% on BiPAP with FiO2 of 80% he is poorly responsive he moves his extremity to stimuli he is nonverbal, laboratory data today reveals a white blood count of 18.0 hemoglobin 8.0 platelet count 54 sodium 149 potassium 3.9 chloride 112 CO2 32 BUN 18 creatinine 0.77 On 11/20/2021 patient remains in the intensive care unit on BiPAP. Patient hypothermic 94.1 Bear hugger blanket increased. Current vitals temp 94.1, heart rate 67 and respiratory rate 35, blood pressure 106/61 patient satting 94% on BiPAP. Patient remains on IV antibiotics per nursing staff attempts will be made to place NG tube and restart tube feedings On 11/21/2021 patient was seen and examined in the ICU, he is maintained on BiPAP FiO2 is 60% patient is drowsy but responds to stimuli. Vital exam reveals a temperature of 97.5 pulse 65 respiration 23 blood pressure 114/68 pulse ox is 98% on BiPAP with FiO2 of 60% white blood count 12.8 hemoglobin 7.3 platelet count 14 9 sodium 140 potassium 3.3 chloride 102 CO2 32 BUN 19 creatinine 0.6 chest x-ray reveals new complete whiteout of the left hemithorax. Patient is clinically slightly better, pulmonary critical care are following On 11/22/2021 patient remains in the intensive care unit. Patient has been taken off BiPAP currently on 6 L. Patient has been started on tube feedings. Remains on IV Zosyn. Patient does respond to stimuli. Hemoglobin 7.6. White blood cell 9.2. Chest x-ray completed showing improvement variation of left lung with residual left lower lobe infiltrate and or atelectasis with effusion is patchy right perihilar and right lower lobe infiltrate. Objective - Vital Signs Vital signs: Vital Signs Temp 98.3 F 11/22/21 08:00 Pulse 89 11/22/21 09:00 Resp 25 H 11/22/21 09:00 BP 116/80 11/22/21 09:00 Pulse Ox 99 11/22/21 09:00 Intake & Output 11/21/21 11/22/21 11/22/21 18:59 06:59 18:59 Intake Total 1391 1796 554 Output Total 470 420 130 Balance 921 1376 424 Weight 52 kg 52 kg Intake: IV 705 820 310 Dextrose 10% in Water 1, 600 50 000 ml In Empty Bag 1 bag @ 50 mls/hr IV .Q20H [facility] Rx#:[id number] Dextrose 5%-0.9% NaCl 1, 550 150 000 ml @ 50 mls/hr IV . Q20H [facility] Rx#:[id number] Piperacillin-Tazobactam 3 100 100 .375 gm In Sodium Chloride 0.9% 100 ml @ 25 mls/hr IVPB Q8HR [facility] Rx# :[id number] Sodium Chloride 0.9% 1, 5 220 60 000 ml @ 20 mls/hr IV . Q24H [facility] Rx#:[id number] Intake, IV Titration 200 100 Amount Magnesium Sulfate-D5w Pmx 100 1 gm In Dextrose/Water 1 100ml.bag @ 100 mls/hr IVPB Q1H [facility] Rx#: [id number] Piperacillin-Tazobactam 3 200 .375 gm In Sodium Chloride 0.9% 100 ml @ 25 mls/hr IVPB Q8HR [facility] Rx# :[id number] Tube Feeding 486 576 144 Other 400 Output: Urine 470 420 130 Other: Voiding Method Indwelling Catheter Indwelling Catheter Indwelling Catheter - Exam In general patient is maintained on BiPAP he is responsive to stimuli HEENT head normocephalic and atraumatic Neck is supple no JVD no goiter no lymphadenopathy no carotid bruit Chest examination is clear to auscultation no crackles no wheezing Cardiac exam reveals regular heart sounds S1 and S2 no gallops no murmurs Abdomen is soft nontender no organomegaly with normal bowel sounds Extremity exam reveals no edema no cyanosis or clubbing Neurological examination reveals no gross focal deficits - Labs CBC & Chem 7: 11/22/21 04:45 11/22/21 04:45 Labs: Abnormal Lab Results - Last 24 Hours (Table) 11/21/21 11/21/21 11/21/21 Range/Units 11:47 17:38 21:00 RBC (4.30-5.90) m/uL Hgb (13.0-17.5) gm/dL Hct (39.0-53.0) % RDW (11.5-15.5) % Plt Count (150-450) k/uL Metamyelocytes # (Man) (0) k/uL Myelocytes # (Manual) (0) k/uL Nucleated RBCs (0-0) /100 WBC Potassium 3.3 L (3.5-5.1) mmol/L Carbon Dioxide (22-30) mmol/L Creatinine (0.66-1.25) mg/dL Glucose (74-99) mg/dL POC Glucose (mg/dL) 102 H 129 H (75-99) mg/dL Calcium (8.4-10.2) mg/dL Alkaline Phosphatase (38-126) U/L Total Protein (6.3-8.2) g/dL Albumin (3.5-5.0) g/dL 11/21/21 11/22/21 11/22/21 Range/Units 23:50 04:45 04:45 RBC 2.80 L (4.30-5.90) m/uL Hgb 7.6 L (13.0-17.5) gm/dL Hct 24.4 L (39.0-53.0) % RDW 21.9 H (11.5-15.5) % Plt Count 41 L (150-450) k/uL Metamyelocytes # (Man) 0.37 H (0) k/uL Myelocytes # (Manual) 0.18 H (0) k/uL Nucleated RBCs 2 H (0-0) /100 WBC Potassium (3.5-5.1) mmol/L Carbon Dioxide 37 H (22-30) mmol/L Creatinine 0.64 L (0.66-1.25) mg/dL Glucose 213 H (74-99) mg/dL POC Glucose (mg/dL) 137 H (75-99) mg/dL Calcium 8.2 L (8.4-10.2) mg/dL Alkaline Phosphatase 209 H (38-126) U/L Total Protein 5.5 L (6.3-8.2) g/dL Albumin 2.2 L (3.5-5.0) g/dL Microbiology - Last 24 Hours (Table) 11/18/21 00:10 Blood Culture - Preliminary Blood No Growth after 96 hours 11/18/21 00:03 Blood Culture - Preliminary Blood No Growth after 96 hours Assessment and Plan Plan: Pneumonia, likely related to aspiration Acute hypoxic respiratory failure, related to pneumonia, patient was started on BiPAP in the emergency room. Improving Sepsis, as evidenced by severe hypothymia, tachypnea, and elevated lactic acid Lactic acidosis Severe hypothermia on presentation related to sepsis. Resolved Minimal elevation in troponin, doubt cardiac ischemia Chest x-ray revealing pulmonary edema per radiology, however BNP is normal at 384, will check echocardiogram, doubt cardiac origin Underlying history of viral meningitis in director distribution with history of brain injury with resulting physical and mental disability Underlying history of seizure disorder Patient remains in the intensive care unit Critical care service is following patient remains on IV antibiotics Continue tube feedings For DVT prophylaxis we will use Lovenox Prognosis is guarded will follow closely
[2021-11-22] MEDS: LORazepam 2 MG/ML INJ IV PRN (10:28)
--- NOTE | 2021-11-22 10:46 | P.PN ---
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 EMS was called for respiratory distress and al tered mental status. Apparently patient was seen normal 30 minutes prior to their evaluation. Patient had progressive shortness of breath, lethargy. At baseline patient is alert but nonverbal. COVID-19 PCR was negative, and patient is vaccinated. Patient had a pulse ox of only 60% on room air upon EMS arrival, and his extremities were cold to touch. No previous history of pulmonary disease or heart failure. Patient has had previous history of pneumonia. Chest x-ray showed pulmonary interstitial and airspace edema, and left lower lobe pneumonia. Patient was significantly tachypneic, hypoxic, his CODE STATUS is DO NOT RESUSCITATE, and his legal guardian wanted supportive treatment with antibiotics and BiPAP support, patient was placed on BiPAP support with pressures of 14/7 and FiO2 100%. Patient is hypothermic with a temp of 87F, his blood pressure was borderline low on arrival at 92/47, and has been as low as 88/60. His laboratory findings showed a white count of 5.7, hemoglobin of 9.4, platelet count of 76, INR of 1.3, sodium of 143, potassium is 4.1, CO2 of 37, BUN 38, creatinine 0.78, plasma lactic acid of 2.2, alk phos was elevated at 202, but AST and ALT were within normal limits at 35 and 12 respectively, troponin was 0.055, ammonia level was 11, proBNP was 384. Urinalysis showed 3+ glucose, trace protein but no evidence of infection, valproic acid level was elevated at 124. COVID-19 PCR was negative as mentioned above. Patient was given a dose of azithromycin and Rocephin in the emergency department, he was given IV fluids, he was placed on the blanket warmer, blood cultures have been sent. he was admitted to the intensive care unit. This morning he seen in the ICU, on BiPAP at 14 and 7 and FiO2 100%, he is tachypneic with a respiratory rate in the 55-60 breaths per minute. He is poorly responsive, he is using accessory muscles of breathing. he still hypothermic but the temp is improved and is up to 94.8F, he remains on the blanket warmer. Blood pressure is 116/72, is in sinus mechanism, tachycardic. His blood gas showed pO2 of 58, pCO 2 of 61, and pH of 7.35, this was done on the FiO2 of 100%. We spoke to the mother on the phone who is his legal guardian, we updated her on the patient's condition, and that he is doing quite poorly. She stated that she would like to continue supportive treatment with antibiotics, fluids and BiPAP support. She is not ready to make him comfort care. On 11/19/2021 patient seen in follow-up in intensive care unit, he remains on BiPAP support with pressures of 18/7 and FiO2 has been dropped down to 80%, patient seems to be oxygenating slightly better compared to yesterday, still quite tachypneic, with a respiratory rate in the 40s and 50s. Still poorly responsive, and his work of breathing is still quite significant, although on today's exam his minute ventilation is seems to be down to 9.8 compared to 19 L/m on yesterday's exam. Today's chest x-ray shows pulmonary vascular congestio n and a large right pleural effusion, and a small left pleural effusion. Patient has received a dose of IV Lasix early this morning, he continues on antibiotics with Zosyn, remains on breathing treatments. His temperature has improved, and this morning his temperature is 97.6F, blood pressure stable, it's 100/57, with a mean of 71, and patient is not requiring vasopressor support, yesterday patient was experiencing frequent episodes of hypoglycemia, and he was requiring frequent IV pushes of 50% dextrose, we placed the patient on 10% dextrose infusion at 75 ML per hour, today the rate has been decreased down to 50 ML per hour, he still has pointed was seen at a rate of 10 ML per hour. Today's labs have been reviewed, his white blood cell count is increased and is up to 18.4, hemoglobin is 8.0, his sodium is 149, potassium is 3.9, chloride is 112, CO2 is 32, BUN is 18 creatinine 0.77. His lactic acid was 2.7 on yesterday's labs. His urine output is in the order of 40-50 ML per hour. Patient has been nothing by mouth due to being BiPAP dependent, he has not been able to take aneurysmal oral medications, he is on IV Protonix and Lovenox for GI and DVT prophylaxis. On 11/20/2021 patient is seen in follow-up in the intensive care unit, he is opening his eyes to voice today, however he is not responding verbally. Patient is nonverbal at baseline according to the medical records. He seems to be breathing more comfortably today, remains on BiPAP with pressures of 18/7 and F iO2 of 60%, with a pulse ox of 95%, less tachypneic compared to previous exams, his respiratory rate is ranging between 28-36 breaths per minute, tidal volume was 268, his minute ventilation is 8.6. He did have an episode of hypothermia this morning with a temp of 94.1 axillary, she is on a blanket warmer right now, but overall his temperature has been better controlled, and he's had less episodes of hypothermia in the last 24 hours. Blood pressure is 106/61, patient is not requiring any vasopressor support, he remains on D10 at 50 ML per hour, and 0.9 normal saline at a rate of 20 ML per hour. Today's chest x-ray has been reviewed, showing persistent but improving infiltrate in the right lung, and worsening infiltrate throughout the left lung. Patient has received intermittent doses of Lasix, he has produced 1.4 L in urine output in the last 24 hours, his slightly and positive fluid balance, +65 ML over the last 24 hours. Patient is in sinus mechanism. Patient continues on Zosyn for empiric antibiotic coverage, so far his blood cultures have shown no growth. Today's labs have been reviewed, white blood cell count is improving and is down to 14.4, hemoglobin 7.0, platelet count is 48, sodium is 149, potassium is 3.9, chloride is 111, CO2 30, BUN is 22, creatinine 0.79, AST is 63, ALT is 11, and alkaline phosphatase is 151. She is oral medications have been discontinued all except for Depakote which has been switched over to IV, patient continues on breathing treatments, and as needed Ativan for possibility of breakthrough seizures. Patient has not had any seizure activity observed. Patient had episode of bradycardia, he was seen by cardiology, echocardiogram showed preserved LV function with EF of 60-65%, mild mitral regurg, mild tricuspid regurg, and a small generalized pericardial effusion. Overall clinically patient seems to have improved since admission, we'll attempt to get the patient of trial on high flow nasal cannula, to put her NG tube and and possibly start nutrition, hydration, and restart oral medications The patient is seen today 11/21/2021 in follow-up in the intensive care unit. He is currently positioned on his left side. He is arousable. He opens his eyes spontaneously. He does remain on BiPAP 18/7 and 60% FiO2. He is on D10 at 50 mL per hour. He is on antibiotics in the form of Zosyn. He did have a right nare nasogastric tube placed yesterday. He's been initiated on Jevity at 40 ML's per hour. He is currently afebrile. Hemodynamically stable. Respiratory rate improved currently at 21. White count 12.8. Hemoglobin 7.3. Platelet count 49,000. Sodium 140. Potassium 3.3. Bicarb 32. Creatinine 0.60. Gluco se 120. AST 48. ALT 11. He remains on DuoNeb inhalations. Lovenox for DVT prophylaxis. Protonix for GI prophylaxis. He's been back on valproic acid IV. Urine output has been adequate. He is currently in a positive balance of 690 ML's. Dick catheter remains in place. Currently 51.5 kg. Chest x-ray is now showing near complete opacification of the left lung. The cultures revealing no growth to date. The patient is seen today 11/22/2021 in follow-up in the intensive care unit. He is currently resting fairly comfortably in bed. He remains on BiPAP 18/7 and 30% FiO2. He has D5.9 at 50 MLS per hour. He is being nourished with Jevity tube feedings at 40 ML's per hour which is goal. His chest x-ray is showing improvement in aeration of the left lung with residual left lower lobe infiltrate and atelectasis. He remains on Zosyn. Microbiology is negative. White count 9.2. Hemoglobin 7.6. Platelet count 41,000. Sodium 142. Potassium 3.6. Bicarb 37. Creatinine 0.64. Glucose 213. AST 38. ALT 11. . Remains in a positive balance. His weight is 52 kg. He is on Lovenox for DVT prophylaxis. No evidence of seizure activity. Objective - Vital Signs Vital signs: Vital Signs Temp 98.3 F 11/22/21 08:00 Pulse 89 11/22/21 09:00 Resp 25 H 11/22/21 09:00 BP 116/80 11/22/21 09:00 Pulse Ox 99 11/22/21 09:00 Intake & Output 11/21/21 11/22/21 11/22/21 18:59 06:59 18:59 Intake Total 1391 1796 554 Output Total 470 420 130 Balance 921 1376 424 Weight 52 kg 52 kg Intake: IV 705 820 310 Dextrose 10% in Water 1, 600 50 000 ml In Empty Bag 1 bag @ 50 mls/hr IV .Q20H [facility] Rx#:[id number] Dextrose 5%-0.9% NaCl 1, 550 150 000 ml @ 50 mls/hr IV . Q20H [facility] Rx#:[id number] Piperacillin-Tazobactam 3 100 100 .375 gm In Sodium Chloride 0.9% 100 ml @ 25 mls/hr IVPB Q8HR [facility] Rx# :[id number] Sodium Chloride 0.9% 1, 5 220 60 000 ml @ 20 mls/hr IV . Q24H [facility] Rx#:[id number] Intake, IV Titration 200 100 Amount Magnesium Sulfate-D5w Pmx 100 1 gm In Dextrose/Water 1 100ml.bag @ 100 mls/hr IVPB Q1H [facility] Rx#: [id number] Piperacillin-Tazobactam 3 200 .375 gm In Sodium Chloride 0.9% 100 ml @ 25 mls/hr IVPB Q8HR [facility] Rx# :[id number] Tube Feeding 486 576 144 Other 400 Output: Urine 470 420 130 Other: Voiding Method Indwelling Catheter Indwelling Catheter Indwelling Catheter - Exam GENERAL EXAM: This is a 36-year-old male patient, with developmental delay, small statured, appears younger than stated age, in no significant respiratory distress, on BiPAP support with pressures of 18/7 and FiO2 about 30% The patient is awake, opening eyes to voice, but not verbally responding, patient is nonverbal at baseline, patient is on a bear hugger warmer, patient's temperature has been improving and patient's temp is 97.5 on today's labs HEAD: Normocephalic/atraumatic. EYES: Normal reaction of pupils, equal size. Conjunctiva pink, sclera white. NOSE: Right nare NG tube in place. Clear with pink turbinates. THROAT: No erythema or exudates. NECK: No masses, no JVD, no thyroid enlargement, no adenopathy. CHEST: No chest wall deformity. Symmetrical expansion. LUNGS: Equal air entry with crackles in the right lung, diminished throughout the left lung. CVS: Regular rate and rhythm, normal S1 and S2, no gallops, no murmurs, no rubs ABDOMEN: Soft, nontender. No hepatosplenomegaly, normal bowel sounds, no guarding or rigidity. EXTREMITIES: No clubbing, no edema, no cyanosis, 2+ pulses and upper and lower extremities. MUSCULOSKELETAL: Contractures. SPINE: No scoliosis or deformity SKIN: No rashes CENTRAL NERVOUS SYSTEM: Opens eyes to voice, breathing fairly comfortably - Labs CBC & Chem 7: 11/22/21 04:45 11/22/21 04:45 Labs: Abnormal Lab Results - Last 24 Hours (Table) 11/21/21 11/21/21 11/21/21 Range/Units 11:47 17:38 21:00 RBC (4.30-5.90) m/uL Hgb (13.0-17.5) gm/dL Hct (39.0-53.0) % RDW (11.5-15.5) % Plt Count (150-450) k/uL Metamyelocytes # (Man) (0) k/uL Myelocytes # (Manual) (0) k/uL Nucleated RBCs (0-0) /100 WBC Potassium 3.3 L (3.5-5.1) mmol/L Carbon Dioxide (22-30) mmol/L Creatinine (0.66-1.25) mg/dL Glucose (74-99) mg/dL POC Glucose (mg/dL) 102 H 129 H (75-99) mg/dL Calcium (8.4-10.2) mg/dL Alkaline Phosphatase (38-126) U/L Total Protein (6.3-8.2) g/dL Albumin (3.5-5.0) g/dL 11/21/21 11/22/21 11/22/21 Range/Units 23:50 04:45 04:45 RBC 2.80 L (4.30-5.90) m/uL Hgb 7.6 L (13.0-17.5) gm/dL Hct 24.4 L (39.0-53.0) % RDW 21.9 H (11.5-15.5) % Plt Count 41 L (150-450) k/uL Metamyelocytes # (Man) 0.37 H (0) k/uL Myelocytes # (Manual) 0.18 H (0) k/uL Nucleated RBCs 2 H (0-0) /100 WBC Potassium (3.5-5.1) mmol/L Carbon Dioxide 37 H (22-30) mmol/L Creatinine 0.64 L (0.66-1.25) mg/dL Glucose 213 H (74-99) mg/dL POC Glucose (mg/dL) 137 H (75-99) mg/dL Calcium 8.2 L (8.4-10.2) mg/dL Alkaline Phosphatase 209 H (38-126) U/L Total Protein 5.5 L (6.3-8.2) g/dL Albumin 2.2 L (3.5-5.0) g/dL Microbiology - Last 24 Hours (Table) 11/18/21 00:10 Blood Culture - Preliminary Blood No Growth after 96 hours 11/18/21 00:03 Blood Culture - Preliminary Blood No Growth after 96 hours Assessment and Plan Assessment: 1. Acute hypoxic respiratory failure related to acute pneumonia, possibly related to acute aspiration. COVID-19 PCR was negative. Patient is currently on BiPAP support with pressures of 14/75 and 30%. Remains on Zosyn 2 Lactic acidosis related to the above, 3 Hypothermia related to sepsis, improved 4 Thrombocytopenia possibly related to sepsis, current platelets at 41,000 5 Anemia, with no clear evidence of bleeding, of unknown etiology, currently hemoglobin 7.6 6 Seizure disorder 7 History of developmental delay 8 Patient is nonverbal at baseline 9 History of meningitis with brain injury at 7 weeks of age Plan: The patient was seen and evaluated X-ray and labs reviewed Improved aeration of the left lung FiO2 was titrated down to 30% Will trial off BiPAP on high flow nasal cannula or AirVo Being nourished with Jevity at goal We will discontinue Lovenox due to thrombocytopenia Continue Zosyn Chest physiotherapy We will continue to follow and make further recommendations based on his clinical status I, the cosigning physician, performed a history & physical examination of the patient. Lungs sounds faint crackles in the right lung, diminished left lung base. Maintaining O2 saturations in the 90s on BiPAP 18/7 and 30% FiO2. I discussed the assessment and plan of care with my nurse practitioner, Rhiannon Barrera. I attest to the above note as dictated by her. I have personally seen and examined the patient, performed the documentation and the assessment and plan as written. Number of minutes spent on the visit: 15.
[2021-11-22 11:12] LABS: Folate, Serum <2.00 ng/mL (4.40-31.00)
[2021-11-22 11:26] LABS: % Iron Saturation 22.55 (15.00-50.00); Total Iron Binding Capacity 258 ug/dL (228-460)
[2021-11-22 11:27] LABS: Iron 58 ug/dL (65-175); Vitamin B12 >2000.0 pg/mL (200.0-944.0)
[2021-11-22 11:58] LABS: Glucose,Whole Blood 127 mg/dL (75-99)
[2021-11-22] MEDS: IPRATROPIUM-ALBUTEROL 3 ML NEB INHALATION PRN (15:41)
[2021-11-22 17:15] LABS: Magnesium 2.3 mg/dL (1.6-2.3); Potassium 4.5 mmol/L (3.5-5.1)
[2021-11-22 23:41] LABS: Glucose,Whole Blood 118 mg/dL (75-99)
[2021-11-23] MEDS: VALPROATE SODIUM IVPB SCH ×4 (05:49→23:41)
[2021-11-23] MEDS: SODIUM CHLORIDE 0.9% IVPB SCH ×4 (05:49→23:41)
[2021-11-23 06:03] LABS: Glucose,Whole Blood 119 mg/dL (75-99)
--- NOTE | 2021-11-23 07:40 | XR ---
EXAMINATION TYPE: XR chest 1V portable DATE OF EXAM: 11/23/2021 COMPARISON: 11/22/2021 HISTORY: 36 years Male. STUDY INDICATION GIVEN: shortness of breath . TECHNIQUE: AP chest radiograph IMPRESSION: Enteric tube courses into the stomach, sidehole at the gastroesophageal junction similar advancing. Low lung volumes. Left lower lobe opacities and/or consolidation and small left pleural effusion, no significant change considering the different positioning compared to prior. Mild right lung base atel ectasis. No pneumothorax. Nonenlarged cardiac silhouette. Periosteal changes along the small right humeral diaphysis be reflective of remote trauma, correlatio n with history and physical examination recommended.
[2021-11-23] MEDS: DEXTROSE 5%-0.9% NACL 1,000 ML IV SCH (08:39)
[2021-11-23] MEDS: PANTOPRAZOLE 40 MG/10 ML VIAL IVP SCH (08:39)
[2021-11-23] MEDS: risperiDONE 0.25 MG TAB PO SCH (08:39)
[2021-11-23] MEDS: PIPERACILLIN-TAZOBACTAM 3.375 GM in SODIUM CHLORIDE 0.9% 100 ML IVPB SCH ×3 (08:39→23:41)
[2021-11-23] MEDS: LORazepam 2 MG/ML INJ IV PRN (09:20)
[2021-11-23 11:51] LABS: Glucose,Whole Blood 117 mg/dL (75-99)
--- NOTE | 2021-11-23 12:21 | P.PN ---
Subjective Progress Note Date: 11/23/21 Tolu Sánchez, is a 36-year-old male, well-known to my practice , with history of physical debility , mental debility , and seizure disorder , patient is a resident at a correction ,who presented to [facility] with a chief complaint of mental status changes and worsening shortness of breath. He was evaluated in the emergency room vital examination on presentation revealed a temperature of 87 pulse 56 respiration 49 blood pressure 102/58 pulse ox 75% on 15 L nonrebreather mask Laboratory data revealed a white blood count of 5.7 hemoglobin 9.4 platelet count 76 sodium 148 potassium 4.1 chloride 37 BUN 38 creatinine 0.78 lactic acid 2.7 troponin 0.055 BNP 384 COVID-19 PCR was negative Chest x-ray done in the emergency room revealed the radiology there was evidence of pulmonary edema, and evidence of left lower lobe pneumonia, EKG revealed supraventricular bradycardia with nonspecific T-wave abnormality. Patient was admitted to ICU for further evaluation and treatment On 11/19/2021 patient was seen and examined in the ICU, his vital exam reveals a temperature of 97.6 pulse 89 respiration 43 blood pressure 100/57 pulse ox 99% on BiPAP with FiO2 of 80% he is poorly responsive he moves his extremity to stimuli he is nonverbal, laboratory data today reveals a white blood count of 18.0 hemoglobin 8.0 platelet count 54 sodium 149 potassium 3.9 chloride 112 CO2 32 BUN 18 creatinine 0.77 On 11/20/2021 patient remains in the intensive care unit on BiPAP. Patient hypothermic 94.1 Bear hugger blanket increased. Current vitals temp 94.1, heart rate 67 and respiratory rate 35, blood pressure 106/61 patient satting 94% on BiPAP. Patient remains on IV antibiotics per nursing staff attempts will be made to place NG tube and restart tube feedings On 11/21/2021 patient was seen and examined in the ICU, he is maintained on BiPAP FiO2 is 60% patient is drowsy but responds to stimuli. Vital exam reveals a temperature of 97.5 pulse 65 respiration 23 blood pressure 114/68 pulse ox is 98% on BiPAP with FiO2 of 60% white blood count 12.8 hemoglobin 7.3 platelet count 14 9 sodium 140 potassium 3.3 chloride 102 CO2 32 BUN 19 creatinine 0.6 chest x-ray reveals new complete whiteout of the left hemithorax. Patient is clinically slightly better, pulmonary critical care are following On 11/22/2021 patient remains in the intensive care unit. Patient has been taken off BiPAP currently on 6 L. Patient has been started on tube feedings. Remains on IV Zosyn. Patient does respond to stimuli. Hemoglobin 7.6. White blood cell 9.2. Chest x-ray completed showing improvement variation of left lung with residual left lower lobe infiltrate and or atelectasis with effusion is patchy right perihilar and right lower lobe infiltrate. On 11/23/2021 patient was seen and examined in the ICU he is alert nonverbal in no apparent distress, he is maintained on oxygen 4 L via nasal cannula vital exam reveals a temperature of 98.5 pulse 105 respiration 17 blood pressure 102/ 62 pulse ox 96% on 4 L nasal cannula, labs are still pending for today, patient does not seem to be in any pain or discomfort, mother is at the bedside and case was discussed in detail with her. CODE STATUS is no cord will continue with current management will follow closely Objective - Vital Signs Vital signs: Vital Signs Temp 99.1 F 11/23/21 08:00 Pulse 109 H 11/23/21 09:00 Resp 17 11/23/21 09:00 BP 122/79 11/23/21 09:00 Pulse Ox 92 L 11/23/21 09:00 Intake & Output 11/22/21 11/23/21 11/23/21 18:59 06:59 18:59 Intake Total 1595 1295 385 Output Total 475 792 200 Balance 1120 503 185 Weight 52 kg 54.7 kg Intake: IV 975 655 265 Dextrose 5%-0.9% NaCl 1, 600 600 150 000 ml @ 50 mls/hr IV . Q20H [facility] Rx#:[id number] Piperacillin-Tazobactam 3 200 100 .375 gm In Sodium Chloride 0.9% 100 ml @ 25 mls/hr IVPB Q8HR [facility] Rx# :[id number] Sodium Chloride 0.9% 1, 75 55 15 000 ml @ 20 mls/hr IV . Q24H [facility] Rx#:[id number] Valproate Sodium 375 mg 100 In Sodium Chloride 0.9% 100 ml @ 100 mls/hr IVPB Q6HR [facility] Rx#:[id number] Intake, IV Titration 100 Amount Magnesium Sulfate-D5w Pmx 100 1 gm In Dextrose/Water 1 100ml.bag @ 100 mls/hr IVPB Q1H [facility] Rx#: [id number] Tube Feeding 520 440 120 Other 200 Output: Urine 475 792 200 Other: Voiding Method Indwelling Catheter Indwelling Catheter Indwelling Catheter # Bowel Movements 1 1 - Exam In general patient is maintained on BiPAP he is responsive to stimuli HEENT head normocephalic and atraumatic Neck is supple no JVD no goiter no lymphadenopathy no carotid bruit Chest examination is clear to auscultation no crackles no wheezing Cardiac exam reveals regular heart sounds S1 and S2 no gallops no murmurs Abdomen is soft nontender no organomegaly with normal bowel sounds Extremity exam reveals no edema no cyanosis or clubbing Neurological examination reveals no gross focal deficits - Labs CBC & Chem 7: 11/22/21 04:45 11/22/21 16:41 Labs: Abnormal Lab Results - Last 24 Hours (Table) 11/22/21 11/22/21 11/23/21 Range/Units 11:55 23:39 06:02 POC Glucose (mg/dL) 127 H 118 H 119 H (75-99) mg/dL 11/23/21 Range/Units 11:48 POC Glucose (mg/dL) 117 H (75-99) mg/dL Microbiology - Last 24 Hours (Table) 11/18/21 00:10 Blood Culture - Preliminary Blood No Growth after 120 hours 11/18/21 00:03 Blood Culture - Preliminary Blood No Growth after 120 hours Assessment and Plan Plan: Pneumonia, likely related to aspiration Acute hypoxic respiratory failure, related to pneumonia, patient was started on BiPAP in the emergency room. Improving Sepsis, as evidenced by severe hypothymia, tachypnea, and elevated lactic acid Lactic acidosis Severe hypothermia on presentation related to sepsis. 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
--- NOTE | 2021-11-23 12:26 | P.PN ---
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 EMS was called for respiratory distress and al tered mental status. Apparently patient was seen normal 30 minutes prior to their evaluation. Patient had progressive shortness of breath, lethargy. At baseline patient is alert but nonverbal. COVID-19 PCR was negative, and patient is vaccinated. Patient had a pulse ox of only 60% on room air upon EMS arrival, and his extremities were cold to touch. No previous history of pulmonary disease or heart failure. Patient has had previous history of pneumonia. Chest x-ray showed pulmonary interstitial and airspace edema, and left lower lobe pneumonia. Patient was significantly tachypneic, hypoxic, his CODE STATUS is DO NOT RESUSCITATE, and his legal guardian wanted supportive treatment with antibiotics and BiPAP support, patient was placed on BiPAP support with pressures of 14/7 and FiO2 100%. Patient is hypothermic with a temp of 87F, his blood pressure was borderline low on arrival at 92/47, and has been as low as 88/60. His laboratory findings showed a white count of 5.7, hemoglobin of 9.4, platelet count of 76, INR of 1.3, sodium of 143, potassium is 4.1, CO2 of 37, BUN 38, creatinine 0.78, plasma lactic acid of 2.2, alk phos was elevated at 202, but AST and ALT were within normal limits at 35 and 12 respectively, troponin was 0.055, ammonia level was 11, proBNP was 384. Urinalysis showed 3+ glucose, trace protein but no evidence of infection, valproic acid level was elevated at 124. COVID-19 PCR was negative as mentioned above. Patient was given a dose of azithromycin and Rocephin in the emergency department, he was given IV fluids, he was placed on the blanket warmer, blood cultures have been sent. he was admitted to the intensive care unit. This morning he seen in the ICU, on BiPAP at 14 and 7 and FiO2 100%, he is tachypneic with a respiratory rate in the 55-60 breaths per minute. He is poorly responsive, he is using accessory muscles of breathing. he still hypothermic but the temp is improved and is up to 94.8F, he remains on the blanket warmer. Blood pressure is 116/72, is in sinus mechanism, tachycardic. His blood gas showed pO2 of 58, pCO 2 of 61, and pH of 7.35, this was done on the FiO2 of 100%. We spoke to the mother on the phone who is his legal guardian, we updated her on the patient's condition, and that he is doing quite poorly. She stated that she would like to continue supportive treatment with antibiotics, fluids and BiPAP support. She is not ready to make him comfort care. On 11/19/2021 patient seen in follow-up in intensive care unit, he remains on BiPAP support with pressures of 18/7 and FiO2 has been dropped down to 80%, patient seems to be oxygenating slightly better compared to yesterday, still quite tachypneic, with a respiratory rate in the 40s and 50s. Still poorly responsive, and his work of breathing is still quite significant, although on today's exam his minute ventilation is seems to be down to 9.8 compared to 19 L/m on yesterday's exam. Today's chest x-ray shows pulmonary vascular congestio n and a large right pleural effusion, and a small left pleural effusion. Patient has received a dose of IV Lasix early this morning, he continues on antibiotics with Zosyn, remains on breathing treatments. His temperature has improved, and this morning his temperature is 97.6F, blood pressure stable, it's 100/57, with a mean of 71, and patient is not requiring vasopressor support, yesterday patient was experiencing frequent episodes of hypoglycemia, and he was requiring frequent IV pushes of 50% dextrose, we placed the patient on 10% dextrose infusion at 75 ML per hour, today the rate has been decreased down to 50 ML per hour, he still has pointed was seen at a rate of 10 ML per hour. Today's labs have been reviewed, his white blood cell count is increased and is up to 18.4, hemoglobin is 8.0, his sodium is 149, potassium is 3.9, chloride is 112, CO2 is 32, BUN is 18 creatinine 0.77. His lactic acid was 2.7 on yesterday's labs. His urine output is in the order of 40-50 ML per hour. Patient has been nothing by mouth due to being BiPAP dependent, he has not been able to take aneurysmal oral medications, he is on IV Protonix and Lovenox for GI and DVT prophylaxis. On 11/20/2021 patient is seen in follow-up in the intensive care unit, he is opening his eyes to voice today, however he is not responding verbally. Patient is nonverbal at baseline according to the medical records. He seems to be breathing more comfortably today, remains on BiPAP with pressures of 18/7 and F iO2 of 60%, with a pulse ox of 95%, less tachypneic compared to previous exams, his respiratory rate is ranging between 28-36 breaths per minute, tidal volume was 268, his minute ventilation is 8.6. He did have an episode of hypothermia this morning with a temp of 94.1 axillary, she is on a blanket warmer right now, but overall his temperature has been better controlled, and he's had less episodes of hypothermia in the last 24 hours. Blood pressure is 106/61, patient is not requiring any vasopressor support, he remains on D10 at 50 ML per hour, and 0.9 normal saline at a rate of 20 ML per hour. Today's chest x-ray has been reviewed, showing persistent but improving infiltrate in the right lung, and worsening infiltrate throughout the left lung. Patient has received intermittent doses of Lasix, he has produced 1.4 L in urine output in the last 24 hours, his slightly and positive fluid balance, +65 ML over the last 24 hours. Patient is in sinus mechanism. Patient continues on Zosyn for empiric antibiotic coverage, so far his blood cultures have shown no growth. Today's labs have been reviewed, white blood cell count is improving and is down to 14.4, hemoglobin 7.0, platelet count is 48, sodium is 149, potassium is 3.9, chloride is 111, CO2 30, BUN is 22, creatinine 0.79, AST is 63, ALT is 11, and alkaline phosphatase is 151. She is oral medications have been discontinued all except for Depakote which has been switched over to IV, patient continues on breathing treatments, and as needed Ativan for possibility of breakthrough seizures. Patient has not had any seizure activity observed. Patient had episode of bradycardia, he was seen by cardiology, echocardiogram showed preserved LV function with EF of 60-65%, mild mitral regurg, mild tricuspid regurg, and a small generalized pericardial effusion. Overall clinically patient seems to have improved since admission, we'll attempt to get the patient of trial on high flow nasal cannula, to put her NG tube and and possibly start nutrition, hydration, and restart oral medications The patient is seen today 11/21/2021 in follow-up in the intensive care unit. He is currently positioned on his left side. He is arousable. He opens his eyes spontaneously. He does remain on BiPAP 18/7 and 60% FiO2. He is on D10 at 50 mL per hour. He is on antibiotics in the form of Zosyn. He did have a right nare nasogastric tube placed yesterday. He's been initiated on Jevity at 40 ML's per hour. He is currently afebrile. Hemodynamically stable. Respiratory rate improved currently at 21. White count 12.8. Hemoglobin 7.3. Platelet count 49,000. Sodium 140. Potassium 3.3. Bicarb 32. Creatinine 0.60. Gluco se 120. AST 48. ALT 11. He remains on DuoNeb inhalations. Lovenox for DVT prophylaxis. Protonix for GI prophylaxis. He's been back on valproic acid IV. Urine output has been adequate. He is currently in a positive balance of 690 ML's. Dick catheter remains in place. Currently 51.5 kg. Chest x-ray is now showing near complete opacification of the left lung. The cultures revealing no growth to date. The patient is seen today 11/22/2021 in follow-up in the intensive care unit. He is currently resting fairly comfortably in bed. He remains on BiPAP 18/7 and 30% FiO2. He has D5.9 at 50 MLS per hour. He is being nourished with Jevity tube feedings at 40 ML's per hour which is goal. His chest x-ray is showing improvement in aeration of the left lung with residual left lower lobe infiltrate and atelectasis. He remains on Zosyn. Microbiology is negative. White count 9.2. Hemoglobin 7.6. Platelet count 41,000. Sodium 142. Potassium 3.6. Bicarb 37. Creatinine 0.64. Glucose 213. AST 38. ALT 11. . Remains in a positive balance. His weight is 52 kg. He is on Lovenox for DVT prophylaxis. No evidence of seizure activity. The patient is seen today 11/23/2021 in follow-up in the intensive care unit. He is currently off the BiPAP and on 5 L high flow nasal cannula maintaining O2 saturations in the 90s. His eyes spontaneously but does not follow any simple commands. He is nonverbal. He did have a nasogastric tube placed and he is being nourished with vital at 40 ML's per hour which is goal. He has D5.9 normal saline at 50 MLS per hour. Follow-up chest x-ray reveals left lower lobe opacity and a small left pleural effusion, no significant change. There is mild right lung base atelectasis. No pneumothorax. Blood glucose 117. He is continued on DuoNeb inhalations. Antibiotics in the form of Zosyn. Continued on valproic acid and Risperal. Ativan when necessary. Protonix for GI prophylaxis. Objective - Vital Signs Vital signs: Vital Signs Temp 98.5 F 11/23/21 12:00 Pulse 105 H 11/23/21 12:00 Resp 0 L 11/23/21 12:00 BP 102/62 11/23/21 12:00 Pulse Ox 96 11/23/21 12:00 Intake & Output 11/22/21 11/23/21 11/23/21 18:59 06:59 18:59 Intake Total 1595 1295 670 Output Total 475 792 375 Balance 1120 503 295 Weight 52 kg 54.7 kg Intake: IV 975 655 430 Dextrose 5%-0.9% NaCl 1, 600 600 300 000 ml @ 50 mls/hr IV . Q20H [facility] Rx#:[id number] Piperacillin-Tazobactam 3 200 100 .375 gm In Sodium Chloride 0.9% 100 ml @ 25 mls/hr IVPB Q8HR [facility] Rx# :[id number] Sodium Chloride 0.9% 1, 75 55 30 000 ml @ 20 mls/hr IV . Q24H [facility] Rx#:[id number] Valproate Sodium 375 mg 100 In Sodium Chloride 0.9% 100 ml @ 100 mls/hr IVPB Q6HR [facility] Rx#:[id number] Intake, IV Titration 100 Amount Magnesium Sulfate-D5w Pmx 100 1 gm In Dextrose/Water 1 100ml.bag @ 100 mls/hr IVPB Q1H [facility] Rx#: [id number] Tube Feeding 520 440 240 Other 200 Output: Urine 475 792 375 Other: Voiding Method Indwelling Catheter Indwelling Catheter Indwelling Catheter # Bowel Movements 1 1 - Exam GENERAL EXAM: This is a 36-year-old male patient, with developmental delay, small statured, appears younger than stated age, in no significant respiratory distress, on 5 L nasal cannula The patient is awake, opening eyes to voice, but not verbally responding, patient is nonverbal at baseline HEAD: Normocephalic/atraumatic. EYES: Normal reaction of pupils, equal size. Conjunctiva pink, sclera white. NOSE: Right nare NG tube in place. Clear with pink turbinates. THROAT: No erythema or exudates. NECK: No masses, no JVD, no thyroid enlargement, no adenopathy. CHEST: No chest wall deformity. Symmetrical expansion. LUNGS: Equal air entry with crackles in the bilateral bases. CVS: Regular rate and rhythm, normal S1 and S2, no gallops, no murmurs, no rubs ABDOMEN: Soft, nontender. No hepatosplenomegaly, normal bowel sounds, no guarding or rigidity. EXTREMITIES: No clubbing, no edema, no cyanosis, 2+ pulses and upper and lower extremities. MUSCULOSKELETAL: Contractures. SPINE: No scoliosis or deformity SKIN: No rashes CENTRAL NERVOUS SYSTEM: Opens eyes to voice, breathing fairly comfortably - Labs CBC & Chem 7: 11/22/21 04:45 11/22/21 16:41 Labs: Abnormal Lab Results - Last 24 Hours (Table) 11/22/21 11/23/21 11/23/21 Range/Units 23:39 06:02 11:48 POC Glucose (mg/dL) 118 H 119 H 117 H (75-99) mg/dL Microbiology - Last 24 Hours (Table) 11/18/21 00:10 Blood Culture - Preliminary Blood No Growth after 120 hours 11/18/21 00:03 Blood Culture - Preliminary Blood No Growth after 120 hours Assessment and Plan Assessment: 1. Acute hypoxic respiratory failure related to acute pneumonia, possibly related to acute aspiration. COVID-19 PCR was negative. Improving and the patient is currently on 5 L nasal cannula. Remains on Zosyn 2 Lactic acidosis related to the above, 3 Hypothermia related to sepsis, improved 4 Thrombocytopenia possibly related to sepsis, current platelets at 41,000 5 Anemia, with no clear evidence of bleeding, of unknown etiology, currently hemoglobin 7.6 6 Seizure disorder 7 History of developmental delay 8 Patient is nonverbal at baseline 9 History of meningitis with brain injury at 7 weeks of age Plan: The patient was seen and evaluated X-ray and labs reviewed Improving and currently on 5 L nasal cannula Being nourished with vital 40 ML's per hour which is goal Continue Zosyn Chest physiotherapy DO NOT RESUSCITATE/DO NOT INTUBATE CODE STATUS We will continue to follow and make further recommendations based on his clinical status I, the cosigning physician, performed a history & physical examination of the patient. Lungs sounds faint crackles in the posterior bases. Maintaining O2 saturations in the 90s on 5 L high flow nasal cannula. I discussed the assessment and plan of care with my nurse practitioner, Rhiannon Barrera. I attest to the above note as dictated by her. I have personally seen and examined the patient, performed the documentation and the assessment and plan as written. Number of minutes spent on the visit: 10.
[2021-11-23 18:21] LABS: Glucose,Whole Blood 99 mg/dL (75-99)
[2021-11-23] MEDS: IPRATROPIUM-ALBUTEROL 3 ML NEB INHALATION PRN (19:36)
[2021-11-23 23:39] LABS: Glucose,Whole Blood 90 mg/dL (75-99)
[2021-11-24 05:39] LABS: Glucose,Whole Blood 94 mg/dL (75-99)
[2021-11-24] MEDS: SODIUM CHLORIDE 0.9% IVPB SCH ×4 (05:46→23:10)
[2021-11-24] MEDS: VALPROATE SODIUM IVPB SCH ×4 (05:46→23:10)
[2021-11-24 06:52] LABS: Anisocytosis Moderate; Hypochromasia Moderate; MCH 26.9 pg (25.0-35.0); MCHC 31.7 g/dL (31.0-37.0); MCV 85.1 fL (80.0-100.0); Mean Platelet Volume 9.6; Microcytosis Slight; Poikilocytosis Slight; RBC 2.27 m/uL (4.30-5.90); RDW 21.8 % (11.5-15.5)
[2021-11-24 06:53] LABS: ALT 11 U/L (4-49); AST 44 U/L (17-59); African American GFR (CKD) >90 (>60 ml/min/1.73 sqM); Albumin 2.1 g/dL (3.5-5.0); Alkaline Phosphatase 185 U/L (38-126); Anion Gap 1 mmol/L; Blood Urea Nitrogen 16 mg/dL (9-20); Calcium 8.4 mg/dL (8.4-10.2); Carbon Dioxide 32 mmol/L (22-30); Chloride 108 mmol/L (98-107); Glucose 90 mg/dL (74-99); Non-African American GFR(CKD) >90 (>60 ml/min/1.73 sqM); Potassium 4.6 mmol/L (3.5-5.1); Sodium 141 mmol/L (137-145); Total Bilirubin 0.4 mg/dL (0.2-1.3); Total Protein 5.3 g/dL (6.3-8.2)
[2021-11-24 07:04] LABS: HCT 19.3 % (39.0-53.0); HGB 6.1 gm/dL (13.0-17.5)
[2021-11-24 07:10] LABS: Platelet Count 51 k/uL (150-450)
[2021-11-24 07:17] LABS: Band Neutrophils % 7 %; Basophils # (M) 0.09 k/uL (0-0.2); Eosinophils # (M) 0.19 k/uL (0-0.7); Lymphocytes # (M) 3.16 k/uL (1.0-4.8); Metamyelocytes # (M) 0.28 k/uL (0); Metamyelocytes % 3 %; Monocytes # (M) 1.86 k/uL (0-1.0); Myelocytes # (M) 0.09 k/uL (0); Myelocytes % 1 %; Neutrophils % (M) 34 %; Nucleated Red Blood Cells 2 /100 WBC (0-0); Total Cells Counted 200; WBC 9.3 k/uL (3.8-10.6)
[2021-11-24] MEDS: IPRATROPIUM-ALBUTEROL 3 ML NEB INHALATION PRN ×2 (07:23→19:36)
[2021-11-24] MEDS: risperiDONE 0.25 MG TAB PO SCH (08:16)
[2021-11-24] MEDS: PANTOPRAZOLE 40 MG/10 ML VIAL IVP SCH (08:16)
[2021-11-24] MEDS: DEXTROSE 5%-0.9% NACL 1,000 ML IV SCH ×2 (08:17→18:15)
[2021-11-24] MEDS: PIPERACILLIN-TAZOBACTAM 3.375 GM in SODIUM CHLORIDE 0.9% 100 ML IVPB SCH ×3 (08:17→23:10)
[2021-11-24 08:27] LABS: Anisocytosis Moderate; HCT 21.7 % (39.0-53.0); Hypochromasia Marked; MCH 26.9 pg (25.0-35.0); MCHC 30.5 g/dL (31.0-37.0); MCV 88.2 fL (80.0-100.0); Mean Platelet Volume 7.4; Microcytosis Slight; Poikilocytosis Slight; RBC 2.45 m/uL (4.30-5.90); RDW 22.2 % (11.5-15.5); WBC 10.2 k/uL (3.8-10.6)
[2021-11-24 08:33] LABS: HGB 6.6 gm/dL (13.0-17.5); Platelet Count 50 k/uL (150-450)
[2021-11-24] MEDS: LORazepam 2 MG/ML INJ IV PRN (08:38)
--- NOTE | 2021-11-24 08:45 | XR ---
EXAMINATION TYPE: XR chest 1V portable DATE OF EXAM: 11/24/2021 Comparison: 11/23/2021 Clinical History: 36-year-old male follow up Findings: NG tube satisfactory. Heart upper limits of normal in size. Diffuse interstitial and perihilar opacit ies. Bibasilar opacities and small to moderate sized left and small right pleural effusions persist. Impression: Allowing for semiupright positioning, relatively similar exam with diffuse interstitial changes as we ll as small to moderate left and small right effusions with adjacent atelectasis and/or consolidation .
--- NOTE | 2021-11-24 10:07 | P.PN ---
Subjective Progress Note Date: 11/24/21 Tolu Sánchez, is a 36-year-old male, well-known to my practice , with history of physical debility , mental debility , and seizure disorder , patient [facility] a [facility] ,who presented to [facility] with a chief complaint of mental status changes and worsening shortness of breath. He was evaluated in the emergency room vital examination on presentation revealed a temperature of 87 pulse 56 respiration 49 blood pressure 102/58 pulse ox 75% on 15 L nonrebreather mask Laboratory data revealed a white blood count of 5.7 hemoglobin 9.4 platelet count 76 sodium 148 potassium 4.1 chloride 37 BUN 38 creatinine 0.78 lactic acid 2.7 troponin 0.055 BNP 384 COVID-19 PCR was negative Chest x-ray done in the emergency room revealed the radiology there was evidence of pulmonary edema, and evidence of left lower lobe pneumonia, EKG revealed supraventricular bradycardia with nonspecific T-wave abnormality. Patient was admitted to ICU for further evaluation and treatment On 11/19/2021 patient was seen and examined in the ICU, his vital exam reveals a temperature of 97.6 pulse 89 respiration 43 blood pressure 100/57 pulse ox 99% on BiPAP with FiO2 of 80% he is poorly responsive he moves his extremity to stimuli he is nonverbal, laboratory data today reveals a white blood count of 18.0 hemoglobin 8.0 platelet count 54 sodium 149 potassium 3.9 chloride 112 CO2 32 BUN 18 creatinine 0.77 On 11/20/2021 patient remains in the intensive care unit on BiPAP. Patient hypothermic 94.1 Bear hugger blanket increased. Current vitals temp 94.1, heart rate 67 and respiratory rate 35, blood pressure 106/61 patient satting 94% on BiPAP. Patient remains on IV antibiotics per nursing staff attempts will be made to place NG tube and restart tube feedings On 11/21/2021 patient was seen and examined in the ICU, he is maintained on BiPAP FiO2 is 60% patient is drowsy but responds to stimuli. Vital exam reveals a temperature of 97.5 pulse 65 respiration 23 blood pressure 114/68 pulse ox is 98% on BiPAP with FiO2 of 60% white blood count 12.8 hemoglobin 7.3 platelet count 14 9 sodium 140 potassium 3.3 chloride 102 CO2 32 BUN 19 creatinine 0.6 chest x-ray reveals new complete whiteout of the left hemithorax. Patient is clinically slightly better, pulmonary critical care are following On 11/22/2021 patient remains in the intensive care unit. Patient has been taken off BiPAP currently on 6 L. Patient has been started on tube feedings. Remains on IV Zosyn. Patient does respond to stimuli. Hemoglobin 7.6. White blood cell 9.2. Chest x-ray completed showing improvement variation of left lung with residual left lower lobe infiltrate and or atelectasis with effusion is patchy right perihilar and right lower lobe infiltrate. On 11/23/2021 patient was seen and examined in the ICU he is alert nonverbal in no apparent distress, he is maintained on oxygen 4 L via nasal cannula vital exam reveals a temperature of 98.5 pulse 105 respiration 17 blood pressure 102/ 62 pulse ox 96% on 4 L nasal cannula, labs are still pending for today, patient does not seem to be in any pain or discomfort, mother is at the bedside and case was discussed in detail with her. CODE STATUS is no cord will continue with current management will follow closely On 11/24/2021 patient remains in the intensive care unit. Patient's oxygen has been increased to high flow 10 L. Per nursing staff patient has been having loose stools will order C. diff. Patient remains on IV Zosyn. 1 unit of PRBCs have been ordered per critical care due to hemoglobin being 6.6. No signs of bleeding per nursing staff. Objective - Vital Signs Vital signs: Vital Signs Temp 99.4 F 11/24/21 08:00 Pulse 104 H 11/24/21 08:00 Resp 13 11/24/21 08:00 BP 105/56 11/24/21 08:00 Pulse Ox 90 L 11/24/21 08:00 Intake & Output 11/23/21 11/24/21 11/24/21 18:59 06:59 18:59 Intake Total 1335 1445 190 Output Total 790 1100 300 Balance 545 345 -110 Weight 51.1 kg Intake: IV 815 605 110 Dextrose 5%-0.9% NaCl 1, 650 550 100 000 ml @ 50 mls/hr IV . Q20H [facility] Rx#:[id number] Piperacillin-Tazobactam 3 100 .375 gm In Sodium Chloride 0.9% 100 ml @ 25 mls/hr IVPB Q8HR [facility] Rx# :[id number] Sodium Chloride 0.9% 1, 65 55 10 000 ml @ 20 mls/hr IV . Q24H ON LICENSE OF [facility] Rx#:[id number] Tube Feeding 520 440 80 Other 400 Output: Urine 790 1100 300 Other: Voiding Method Indwelling Catheter Indwelling Catheter Indwelling Catheter # Bowel Movements 1 1 1 - Exam In general patient is maintained on BiPAP he is responsive to stimuli HEENT head normocephalic and atraumatic Neck is supple no JVD no goiter no lymphadenopathy no carotid bruit Chest examination is clear to auscultation no crackles no wheezing Cardiac exam reveals regular heart sounds S1 and S2 no gallops no murmurs Abdomen is soft nontender no organomegaly with normal bowel sounds Extremity exam reveals no edema no cyanosis or clubbing Neurological examination reveals no gross focal deficits - Labs CBC & Chem 7: 11/24/21 08:16 11/24/21 06:00 Labs: Abnormal Lab Results - Last 24 Hours (Table) 11/23/21 11/24/21 11/24/21 Range/Units 11:48 06:00 06:00 RBC 2.27 L (4.30-5.90) m/uL Hgb 6.1 L* D (13.0-17.5) gm/dL Hct 19.3 L* (39.0-53.0) % MCHC (31.0-37.0) g/dL RDW 21.8 H (11.5-15.5) % Plt Count 51 L (150-450) k/uL Monocytes # (Manual) 1.86 H (0-1.0) k/uL Metamyelocytes # (Man) 0.28 H (0) k/uL Myelocytes # (Manual) 0.09 H (0) k/uL Nucleated RBCs 2 H (0-0) /100 WBC Chloride 108 H (98-107) mmol/L Carbon Dioxide 32 H (22-30) mmol/L Creatinine 0.52 L (0.66-1.25) mg/dL POC Glucose (mg/dL) 117 H (75-99) mg/dL Alkaline Phosphatase 185 H (38-126) U/L Total Protein 5.3 L (6.3-8.2) g/dL Albumin 2.1 L (3.5-5.0) g/dL 11/24/21 Range/Units 08:16 RBC 2.45 L (4.30-5.90) m/uL Hgb 6.6 L* (13.0-17.5) gm/dL Hct 21.7 L (39.0-53.0) % MCHC 30.5 L (31.0-37.0) g/dL RDW 22.2 H (11.5-15.5) % Plt Count 50 L (150-450) k/uL Monocytes # (Manual) (0-1.0) k/uL Metamyelocytes # (Man) (0) k/uL Myelocytes # (Manual) (0) k/uL Nucleated RBCs (0-0) /100 WBC Chloride (98-107) mmol/L Carbon Dioxide (22-30) mmol/L Creatinine (0.66-1.25) mg/dL POC Glucose (mg/dL) (75-99) mg/dL Alkaline Phosphatase (38-126) U/L Total Protein (6.3-8.2) g/dL Albumin (3.5-5.0) g/dL Microbiology - Last 24 Hours (Table) 11/18/21 00:10 Blood Culture - Final Blood No Growth after 144 hours 11/18/21 00:03 Blood Culture - Final Blood No Growth after 144 hours Assessment and Plan Plan: Pneumonia, likely related to aspiration Acute hypoxic respiratory failure, related to pneumonia, patient was started on BiPAP in the emergency room. Improving Sepsis, as evidenced by severe hypothymia, tachypnea, and elevated lactic acid Lactic acidosis Severe hypothermia on presentation related to sepsis. 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 Hemoglobin 6.6unit of PRBCs have been ordered per critical care Loose stools will order stool for C. diff Patient remains in the intensive care unit Critical care service is following patient remains on IV antibiotics Continue tube feedings For DVT prophylaxis we will use Lovenox Prognosis is guarded will follow closely
--- NOTE | 2021-11-24 11:10 | P.PN ---
Subjective Progress Note Date: 11/24/21 Principal diagnosis: Pneumonia. The patient is seen today 11/21/2021 in follow-up in the intensive care unit. He is currently positioned on his left side. He is arousable. He opens his eyes spontaneously. He does remain on BiPAP 18/7 and 60% FiO2. He is on D10 at 50 mL per hour. He is on antibiotics in the form of Zosyn. He did have a right nare nasogastric tube placed yesterday. He's been initiated on Jevity at 40 ML's per hour. He is currently afebrile. Hemodynamically stable. Respiratory rate improved currently at 21. White count 12.8. Hemoglobin 7.3. Platelet count 49,000. Sodium 140. Potassium 3.3. Bicarb 32. Creatinine 0.60. Glucose 120. AST 48. ALT 11. He remains on DuoNeb inhalations. Lovenox for DVT prophylaxis. Protonix for GI prophylaxis. He's been back on valproic acid IV. Urine output has been adequate. He is currently in a positive balance of 690 ML's. Dick catheter remains in place. Currently 51.5 kg. Chest x-ray is now showing near complete opacification of the left lung. The cultures revealing no growth to date. The patient is seen today 11/22/2021 in follow-up in the intensive care unit. He is currently resting fairly comfortably in bed. He remains on BiPAP 18/7 and 30% FiO2. He has D5.9 at 50 MLS per hour. He is being nourished with Jevity tube feedings at 40 ML's per hour which is goal. His chest x-ray is showing improvement in aeration of the left lung with residual left lower lobe infiltrate and atelectasis. He remains on Zosyn. Microbiology is negative. White count 9.2. Hemoglobin 7.6. Platelet count 41,000. Sodium 142. Potassium 3.6. Bicarb 37. Creatinine 0.64. Glucose 213. AST 38. ALT 11. . Remains in a positive balance. His weight is 52 kg. He is on Lovenox for DVT prophylaxis. No evidence of seizure activity. The patient is seen today 11/23/2021 in follow-up in the intensive care unit. He is currently off the BiPAP and on 5 L high flow nasal cannula maintaining O2 saturations in the 90s. His eyes spontaneously but does not follow any simple commands. He is nonverbal. He did have a nasogastric tube placed and he is being nourished with vital at 40 ML's per hour which is goal. He has D5.9 normal saline at 50 MLS per hour. Follow-up chest x-ray reveals left lower lobe opacity and a small left pleural effusion, no significant change. There is mild right lung base atelectasis. No pneumothorax. Blood glucose 117. He is continued on DuoNeb inhalations. Antibiotics in the form of Zosyn. Continued on valproic acid and Risperal. Ativan when necessary. Protonix for GI prophylaxis. Progress note dated 11/24/2021. The patient is again seen in the intensive care unit. The patient is in room 252. The patient is on 6 L nasal cannula. His oxygen requirements have gone up a bit. His hemoglobin this morning was 6.6. He'll receive 1 unit of packed red blood cells. He is getting D5 0.9, at 50 mL an hour. He is also receiving vital AF, at 40 mL an hour, which is goal. His chest x-ray today appears a bit better. White count 10.2, hemoglobin 6.6, hematocrit 21.7, and platelet count 50,000. Sodium 141, potassium 4.6, chlorides 108, CO2 32, BUN 16, creatinine 0.52. Albumin is 2.1. Chest x-ray, shows bilateral infiltrates. In my opinion, the chest x-ray is a bit better from that x-ray from yesterday. The patient remains on Zosyn empirically for pneumonia. Objective - Vital Signs Vital signs: Vital Signs Temp 99.4 F 11/24/21 08:00 Pulse 104 H 11/24/21 08:00 Resp 13 11/24/21 08:00 BP 105/56 11/24/21 08:00 Pulse Ox 90 L 11/24/21 08:00 Intake & Output 11/23/21 11/24/21 11/24/21 18:59 06:59 18:59 Intake Total 1335 1445 475 Output Total 790 1100 510 Balance 545 345 -35 Weight 51.1 kg Intake: IV 815 605 275 Dextrose 5%-0.9% NaCl 1, 650 550 250 000 ml @ 50 mls/hr IV . Q20H [facility] Rx#:[id number] Piperacillin-Tazobactam 3 100 .375 gm In Sodium Chloride 0.9% 100 ml @ 25 mls/hr IVPB Q8HR [facility] Rx# :[id number] Sodium Chloride 0.9% 1, 65 55 25 000 ml @ 20 mls/hr IV . Q24H [facility] Rx#:[id number] Tube Feeding 520 440 200 Other 400 Output: Urine 790 1100 510 Other: Voiding Method Indwelling Catheter Indwelling Catheter Indwelling Catheter # Bowel Movements 1 1 1 - Exam No acute distress, unresponsive, with NG tube in place, and also on 6 L nasal cannula. HEENT examination is grossly unremarkable. Neck supple. Full range of motion. No adenopathy thyromegaly or neck vein distention. Cardiovascular examination reveals regular rhythm rate. S1-S2 normal. No S3 or S4. No discernible murmur noted. Heart sounds are distant. Heart rate 104 bpm. Lungs reveal a few coarse rhonchi. Breath sounds equal. No wheezes. Breath sounds equal bilaterally. Abdomen is soft, without bowel sounds. Extremities are intact. No cyanosis clubbing or significant edema. Skin is without rash or lesion. Neurologic examination is difficult to assess. This is the patient's baseline mental status. - Labs CBC & Chem 7: 11/24/21 08:16 11/24/21 06:00 Labs: Abnormal Lab Results - Last 24 Hours (Table) 11/23/21 11/24/21 11/24/21 Range/Units 11:48 06:00 06:00 RBC 2.27 L (4.30-5.90) m/uL Hgb 6.1 L* D (13.0-17.5) gm/dL Hct 19.3 L* (39.0-53.0) % MCHC (31.0-37.0) g/dL RDW 21.8 H (11.5-15.5) % Plt Count 51 L (150-450) k/uL Monocytes # (Manual) 1.86 H (0-1.0) k/uL Metamyelocytes # (Man) 0.28 H (0) k/uL Myelocytes # (Manual) 0.09 H (0) k/uL Nucleated RBCs 2 H (0-0) /100 WBC Chloride 108 H (98-107) mmol/L Carbon Dioxide 32 H (22-30) mmol/L Creatinine 0.52 L (0.66-1.25) mg/dL POC Glucose (mg/dL) 117 H (75-99) mg/dL Alkaline Phosphatase 185 H (38-126) U/L Total Protein 5.3 L (6.3-8.2) g/dL Albumin 2.1 L (3.5-5.0) g/dL 11/24/21 Range/Units 08:16 RBC 2.45 L (4.30-5.90) m/uL Hgb 6.6 L* (13.0-17.5) gm/dL Hct 21.7 L (39.0-53.0) % MCHC 30.5 L (31.0-37.0) g/dL RDW 22.2 H (11.5-15.5) % Plt Count 50 L (150-450) k/uL Monocytes # (Manual) (0-1.0) k/uL Metamyelocytes # (Man) (0) k/uL Myelocytes # (Manual) (0) k/uL Nucleated RBCs (0-0) /100 WBC Chloride (98-107) mmol/L Carbon Dioxide (22-30) mmol/L Creatinine (0.66-1.25) mg/dL POC Glucose (mg/dL) (75-99) mg/dL Alkaline Phosphatase (38-126) U/L Total Protein (6.3-8.2) g/dL Albumin (3.5-5.0) g/dL Microbiology - Last 24 Hours (Table) 11/18/21 00:10 Blood Culture - Final Blood No Growth after 144 hours 11/18/21 00:03 Blood Culture - Final Blood No Growth after 144 hours Assessment and Plan Assessment: Acute hypoxemic respiratory failure secondary to aspiration pneumonia. Patient currently on Zosyn empirically. Lactic acidosis, resolved. Hypothermia, secondary to sepsis, much improved. Thrombocytopenia, secondary to sepsis. Anemia. Seizure disorder. History of developmental delay. Patient is nonverbal, which is baseline. History of meningitis with brain injury at 7 weeks of age. Plan: Plan dated 11/24/2021. The patient remains on Zosyn. X-ray and labs are reviewed. Medications are reviewed. His oxygen requirements have gone up a bit. Chest x-ray in my opinion appears a bit better. Continue chest physiotherapy. The patient is a DO NOT RESUSCITATE/DO NOT INTUBATE patient. Labs and x-rays are ordered for the morning. The patient will receive 1 unit of PRBCs, for a hemoglobin of 6.6. Overall prognosis remains poor. We will continue to follow and make recommenda tions where appropriate. Time with Patient: Less than 30
[2021-11-25 00:21] LABS: Glucose,Whole Blood 85 mg/dL (75-99)
[2021-11-25] MEDS: DEXTROSE 5%-0.9% NACL 1,000 ML IV SCH ×2 (01:18→23:17)
[2021-11-25] MEDS: VALPROATE SODIUM IVPB SCH ×4 (05:31→23:12)
[2021-11-25] MEDS: SODIUM CHLORIDE 0.9% IVPB SCH ×4 (05:31→23:12)
[2021-11-25 06:36] LABS: Glucose,Whole Blood 104 mg/dL (75-99)
[2021-11-25 06:49] LABS: Anisocytosis Slight; HCT 26.7 % (39.0-53.0); Hypochromasia Marked; MCH 28.3 pg (25.0-35.0); MCHC 32.2 g/dL (31.0-37.0); Mean Platelet Volume 7.6; Poikilocytosis Slight; RBC 3.04 m/uL (4.30-5.90); RDW 19.8 % (11.5-15.5)
[2021-11-25 07:03] LABS: HGB 8.6 gm/dL (13.0-17.5); Platelet Count 47 k/uL (150-450)
[2021-11-25] MEDS: PIPERACILLIN-TAZOBACTAM 3.375 GM in SODIUM CHLORIDE 0.9% 100 ML IVPB SCH ×3 (08:27→23:12)
[2021-11-25] MEDS: PANTOPRAZOLE 40 MG/10 ML VIAL IVP SCH (08:27)
[2021-11-25] MEDS: risperiDONE 0.25 MG TAB PO SCH (08:27)
[2021-11-25 08:30] LABS: ALT 12 U/L (4-49); AST 51 U/L (17-59); African American GFR (CKD) >90 (>60 ml/min/1.73 sqM); Albumin 2.2 g/dL (3.5-5.0); Alkaline Phosphatase 187 U/L (38-126); Anion Gap 2 mmol/L; Blood Urea Nitrogen 15 mg/dL (9-20); Calcium 8.2 mg/dL (8.4-10.2); Carbon Dioxide 29 mmol/L (22-30); Chloride 106 mmol/L (98-107); Glucose 112 mg/dL (74-99); Non-African American GFR(CKD) >90 (>60 ml/min/1.73 sqM); Potassium 4.3 mmol/L (3.5-5.1); Sodium 137 mmol/L (137-145); Total Bilirubin 0.3 mg/dL (0.2-1.3); Total Protein 5.5 g/dL (6.3-8.2)
[2021-11-25 09:44] LABS: Band Neutrophils % 9 %; Eosinophils # (M) 0.27 k/uL (0-0.7); Lymphocytes # (M) 2.16 k/uL (1.0-4.8); Metamyelocytes # (M) 0.18 k/uL (0); Metamyelocytes % 2 %; Monocytes # (M) 1.26 k/uL (0-1.0); Myelocytes # (M) 0.54 k/uL (0); Myelocytes % 6 %; Neutrophils % (M) 44 %; Nucleated Red Blood Cells 1 /100 WBC (0-0); Total Cells Counted 200
[2021-11-25 09:45] LABS: Toxic Granulation Present
--- NOTE | 2021-11-25 11:37 | P.PN ---
Subjective Progress Note Date: 11/25/21 Principal diagnosis: Acute hypoxic respiratory failure secondary to aspiration pneumonia. The patient is seen today 11/21/2021 in follow-up in the intensive care unit. He is currently positioned on his left side. He is arousable. He opens his eyes spontaneously. He does remain on BiPAP 18/7 and 60% FiO2. He is on D10 at 50 mL per hour. He is on antibiotics in the form of Zosyn. He did have a right nare nasogastric tube placed yesterday. He's been initiated on Jevity at 40 ML's per hour. He is currently afebrile. Hemodynamically stable. Respiratory rate improved currently at 21. White count 12.8. Hemoglobin 7.3. Platelet count 49,000. Sodium 140. Potassium 3.3. Bicarb 32. Creatinine 0.60. Glucose 120. AST 48. ALT 11. He remains on DuoNeb inhalations. Lovenox for DVT prophylaxis. Protonix for GI prophylaxis. He's been back on valproic acid IV. Urine output has been adequate. He is currently in a positive balance of 690 ML's. Dick catheter remains in place. Currently 51.5 kg. Chest x-ray is now showing near complete opacification of the left lung. The cultures revealing no growth to date. The patient is seen today 11/22/2021 in follow-up in the intensive care unit. He is currently resting fairly comfortably in bed. He remains on BiPAP 18/7 and 30% FiO2. He has D5.9 at 50 MLS per hour. He is being nourished with Jevity tube feedings at 40 ML's per hour which is goal. His chest x-ray is showing improvement in aeration of the left lung with residual left lower lobe infiltrate and atelectasis. He remains on Zosyn. Microbiology is negative. White count 9.2. Hemoglobin 7.6. Platelet count 41,000. Sodium 142. Potassi um 3.6. Bicarb 37. Creatinine 0.64. Glucose 213. AST 38. ALT 11. . Remains in a positive balance. His weight is 52 kg. He is on Lovenox for DVT prophylaxis. No evidence of seizure activity. The patient is seen today 11/23/2021 in follow-up in the intensive care unit. He is currently off the BiPAP and on 5 L high flow nasal cannula maintaining O2 saturations in the 90s. His eyes spontaneously but does not follow any simple commands. He is nonverbal. He did have a nasogastric tube placed and he is being nourished with vital at 40 ML's per hour which is goal. He has D5.9 normal saline at 50 MLS per hour. Follow-up chest x-ray reveals left lower lobe opacity and a small left pleural effusion, no significant change. There is mild right lung base atelectasis. No pneumothorax. Blood glucose 117. He is continued on DuoNeb inhalations. Antibiotics in the form of Zosyn. Continued on valproic acid and Risperal. Ativan when necessary. Protonix for GI prophylaxis. Progress note dated 11/24/2021. The patient is again seen in the intensive care unit. The patient is in room 252. The patient is on 6 L nasal cannula. His oxygen requirements have gone up a bit. His hemoglobin this morning was 6.6. He'll receive 1 unit of packed red blood cells. He is getting D5 0.9, at 50 mL an hour. He is also receiving vital AF, at 40 mL an hour, which is goal. His chest x-ray today appears a bit better. White count 10.2, hemoglobin 6.6, hematocrit 21.7, and platelet count 50,000. Sodium 141, potassium 4.6, chlorides 108, CO2 32, BUN 16, creatinine 0.52. Albumin is 2.1. Chest x-ray, shows bilateral infiltrates. In my opinion, the chest x-ray is a bit better from that x-ray from yesterday. The patient remains on Zosyn empirically for pneumonia. Reevaluated today on 11/25/2021, patient remains in the ICU, remains on antibiotics empirically in the form of Zosyn, chest x-ray continues to show bilateral infiltrates consistent with aspiration pneumonia. Patient is now on 4 L nasal cannula, does not seem to be in any distress. Still receiving vital AF at 40 mL per hour. IV fluids at 50 mL per hour. Electrolytes are normal renal profile is normal WBC count is 9, hemoglobin is 8.6, however the patient has low platelets of 47,000.. His platelets have been ranging between 41,070 6000 since admission. This is not a new change. Obviously Objective - Vital Signs Vital signs: Vital Signs Temp 97.9 F 11/25/21 08:00 Pulse 85 11/25/21 08:00 Resp 18 11/25/21 08:00 BP 109/64 11/25/21 08:00 Pulse Ox 96 11/25/21 08:00 Intake & Output 11/24/21 11/25/21 11/25/21 18:59 06:59 18:59 Intake Total 1845 1245 480 Output Total 1305 1045 430 Balance 540 200 50 Weight 53.8 kg Intake: IV 915 605 320 Dextrose 5%-0.9% NaCl 1, 650 550 200 000 ml @ 50 mls/hr IV . Q20H [facility] Rx#:[id number] Piperacillin-Tazobactam 3 100 .375 gm In Sodium Chloride 0.9% 100 ml @ 25 mls/hr IVPB Q8HR [facility] Rx# :[id number] Sodium Chloride 0.9% 1, 65 55 20 000 ml @ 20 mls/hr IV . Q24H [facility] Rx#:[id number] Valproate Sodium 375 mg 200 In Sodium Chloride 0.9% 100 ml @ 100 mls/hr IVPB Q6HR [facility] Rx#:[id number] Intake, IV Titration 100 Amount Piperacillin-Tazobactam 3 100 .375 gm In Sodium Chloride 0.9% 100 ml @ 25 mls/hr IVPB Q8HR [facility] Rx# :[id number] Tube Feeding 520 440 160 Blood Product 310 Rc As-1 Unit 310 [id number] Other 200 Output: Urine 1305 1045 430 Other: Voiding Method Indwelling Catheter Indwelling Catheter Indwelling Catheter # Bowel Movements 1 1 1 - Exam GENERAL EXAM: This is a 36-year-old male patient, in no distress, on few liters nasal cannula. The patient is awake, opening eyes to voice, but not verbally responding, patient is nonverbal at baseline HEAD: Normocephalic/atraumatic. ENT: PERRLA, EOMI, nonicteric, no neck masses, no JVD. CHEST: No chest wall deformity. LUNGS: Symmetrical chest expansion, crackles at the bases. CVS: Regular rate and rhythm, normal S1 and S2, no gallops, no murmurs, no rubs ABDOMEN: Soft, nontender. No hepatosplenomegaly, normal bowel sounds, no guarding or rigidity. EXTREMITIES: No clubbing, no edema, no cyanosis, 2+ pulses and upper and lower extremities. MUSCULOSKELETAL: Contractures. Noted bilaterally. SKIN: No rashes CENTRAL NERVOUS SYSTEM: Opens eyes to voice, does not follow any instructions. - Labs CBC & Chem 7: 11/25/21 06:23 11/25/21 07:34 Labs: Abnormal Lab Results - Last 24 Hours (Table) 11/24/21 11/25/21 11/25/21 Range/Units 10:36 06:23 06:34 RBC 3.04 L (4.30-5.90) m/uL Hgb 8.6 L D (13.0-17.5) gm/dL Hct 26.7 L (39.0-53.0) % RDW 19.8 H (11.5-15.5) % Plt Count 47 L (150-450) k/uL Monocytes # (Manual) 1.26 H (0-1.0) k/uL Metamyelocytes # (Man) 0.18 H (0) k/uL Myelocytes # (Manual) 0.54 H (0) k/uL Nucleated RBCs 1 H (0-0) /100 WBC Creatinine (0.66-1.25) mg/dL Glucose (74-99) mg/dL POC Glucose (mg/dL) 104 H (75-99) mg/dL Calcium (8.4-10.2) mg/dL Alkaline Phosphatase (38-126) U/L Total Protein (6.3-8.2) g/dL Albumin (3.5-5.0) g/dL Crossmatch See Detail 11/25/21 Range/Units 07:34 RBC (4.30-5.90) m/uL Hgb (13.0-17.5) gm/dL Hct (39.0-53.0) % RDW (11.5-15.5) % Plt Count (150-450) k/uL Monocytes # (Manual) (0-1.0) k/uL Metamyelocytes # (Man) (0) k/uL Myelocytes # (Manual) (0) k/uL Nucleated RBCs (0-0) /100 WBC Creatinine 0.44 L (0.66-1.25) mg/dL Glucose 112 H (74-99) mg/dL POC Glucose (mg/dL) (75-99) mg/dL Calcium 8.2 L (8.4-10.2) mg/dL Alkaline Phosphatase 187 H (38-126) U/L Total Protein 5.5 L (6.3-8.2) g/dL Albumin 2.2 L (3.5-5.0) g/dL Crossmatch Assessment and Plan Assessment: Impression: Acute hypoxic respiratory failure secondary to aspiration pneumonia. Hypothermia related to sepsis. Thrombocytopenia secondary to sepsis. History of seizure disorder. Chronic anemia. History of developmental delay. History of meningitis with brain injury at 7 weeks of age. Recommendation: Continue oxygen. Continue antibiotics. Continue enteral feeding. Continue chest physiotherapy. Transfer patient out of the ICU to a regular medical floor today. We will continue to follow. Continue aspiration precautions in the meantime. Overall prognosis is extremely poor and guarded. CODE STATUS is DO NOT R ESUSCITATE. Time with Patient: Less than 30
[2021-11-25 11:40] LABS: Glucose,Whole Blood 112 mg/dL (75-99)
[2021-11-25] MEDS: LORazepam 2 MG/ML INJ IV PRN (18:20)
--- NOTE | 2021-11-25 19:25 | P.PN ---
Subjective Progress Note Date: 11/25/21 Tolu Sánchez, is a 36-year-old male, well-known to my practice , with history of physical debility , mental debility , and seizure disorder , patient is a resident at a [facility] ,who presented to [facility] with a chief complaint of mental status changes and worsening shortness of breath. He was evaluated in the emergency room vital examination on presentation revealed a temperature of 87 pulse 56 respiration 49 blood pressure 102/58 pulse ox 75% on 15 L nonrebreather mask Laboratory data revealed a white blood count of 5.7 hemoglobin 9.4 platelet count 76 sodium 148 potassium 4.1 chloride 37 BUN 38 creatinine 0.78 lactic acid 2.7 troponin 0.055 BNP 384 COVID-19 PCR was negative Chest x-ray done in the emergency room revealed the radiology there was evidence of pulmonary edema, and evidence of left lower lobe pneumonia, EKG revealed supraventricular bradycardia with nonspecific T-wave abnormality. Patient was admitted to ICU for further evaluation and treatment On 11/19/2021 patient was seen and examined in the ICU, his vital exam reveals a temperature of 97.6 pulse 89 respiration 43 blood pressure 100/57 pulse ox 99% on BiPAP with FiO2 of 80% he is poorly responsive he moves his extremity to stimuli he is nonverbal, laboratory data today reveals a white blood count of 18.0 hemoglobin 8.0 platelet count 54 sodium 149 potassium 3.9 chloride 112 CO2 32 BUN 18 creatinine 0.77 On 11/20/2021 patient remains in the intensive care unit on BiPAP. Patient hypothermic 94.1 Bear hugger blanket increased. Current vitals temp 94.1, heart rate 67 and respiratory rate 35, blood pressure 106/61 patient satting 94% on BiPAP. Patient remains on IV antibiotics per nursing staff attempts will be made to place NG tube and restart tube feedings On 11/21/2021 patient was seen and examined in the ICU, he is maintained on BiPAP FiO2 is 60% patient is drowsy but responds to stimuli. Vital exam reveals a temperature of 97.5 pulse 65 respiration 23 blood pressure 114/68 pulse ox is 98% on BiPAP with FiO2 of 60% white blood count 12.8 hemoglobin 7.3 platelet count 14 9 sodium 140 potassium 3.3 chloride 102 CO2 32 BUN 19 creatinine 0.6 chest x-ray reveals new complete whiteout of the left hemithorax. Patient is clinically slightly better, pulmonary critical care are following On 11/22/2021 patient remains in the intensive care unit. Patient has been taken off BiPAP currently on 6 L. Patient has been started on tube feedings. Remains on IV Zosyn. Patient does respond to stimuli. Hemoglobin 7.6. White blood cell 9.2. Chest x-ray completed showing improvement variation of left lung with residual left lower lobe infiltrate and or atelectasis with effusion is patchy right perihilar and right lower lobe infiltrate. On 11/23/2021 patient was seen and examined in the ICU he is alert nonverbal in no apparent distress, he is maintained on oxygen 4 L via nasal cannula vital exam reveals a temperature of 98.5 pulse 105 respiration 17 blood pressure 102/ 62 pulse ox 96% on 4 L nasal cannula, labs are still pending for today, patient does not seem to be in any pain or discomfort, mother is at the bedside and case was discussed in detail with her. CODE STATUS is no cord will continue with current management will follow closely On 11/24/2021 patient remains in the intensive care unit. Patient's oxygen has been increased to high flow 10 L. Per nursing staff patient has been having loose stools will order C. diff. Patient remains on IV Zosyn. 1 unit of PRBCs have been ordered per critical care due to hemoglobin being 6.6. No signs of bleeding per nursing staff. On 11/25/2021 patient was seen and examined in the ICU he is alert nonverbal in no apparent distress, he is maintained on oxygen 4 L via nasal cannula vital exam reveals a temperature of 98.5 pulse 105 respiration 17 blood pressure 102/62 pulse ox 96% on 4 L nasal cannula, patient does not seem to be in any pain or discomfort, mother is at the bedside and case was discussed in detail with her. CODE STATUS is no cord will continue with current management will follow closely On 11/25/2021 patient was seen and examined on the medical floor he was transferred out of ICU today. Currently patient is maintained on oxygen 4 L via nasal cannula, vital exam reveals a temperature of 98.6 pulse 100 respiration 28 pressure 112/61 pulse ox 96% on 4 L nasal cannula is white blood count is 9.0 hemoglobin 8.6 platelet count 47 BUN 15 creatinine 0.44 Objective - Vital Signs Vital signs: Vital Signs Temp 97.9 F 02/21/22 08:00 Pulse 85 11/25/21 08:00 Resp 18 11/25/21 08:00 BP 109/64 11/25/21 08:00 Pulse Ox 96 11/25/21 08:00 Intake & Output 11/24/21 11/25/21 11/25/21 18:59 06:59 18:59 Intake Total 1845 1245 480 Output Total 1305 1045 430 Balance 540 200 50 Weight 53.8 kg Intake: IV 915 605 320 Dextrose 5%-0.9% NaCl 1, 650 550 200 000 ml @ 50 mls/hr IV . Q20H [facility] Rx#:[id number] Piperacillin-Tazobactam 3 100 .375 gm In Sodium Chloride 0.9% 100 ml @ 25 mls/hr IVPB Q8HR [facility] Rx# :[id number] Sodium Chloride 0.9% 1, 65 55 20 000 ml @ 20 mls/hr IV . Q24H [facility] Rx#:[id number] Valproate Sodium 375 mg 200 In Sodium Chloride 0.9% 100 ml @ 100 mls/hr IVPB Q6HR [facility] Rx#:[id number] Intake, IV Titration 100 Amount Piperacillin-Tazobactam 3 100 .375 gm In Sodium Chloride 0.9% 100 ml @ 25 mls/hr IVPB Q8HR [facility] Rx# :[id number] Tube Feeding 520 440 160 Blood Product 310 Rc As-1 Unit 310 [id number] Other 200 Output: Urine 1305 1045 430 Other: Voiding Method Indwelling Catheter Indwelling Catheter Indwelling Catheter # Bowel Movements 1 1 1 - Exam In general patient is maintained on BiPAP he is responsive to stimuli HEENT head normocephalic and atraumatic Neck is supple no JVD no goiter no lymphadenopathy no carotid bruit Chest examination is clear to auscultation no crackles no wheezing Cardiac exam reveals regular heart sounds S1 and S2 no gallops no murmurs Abdomen is soft nontender no organomegaly with normal bowel sounds Extremity exam reveals no edema no cyanosis or clubbing Neurological examination reveals no gross focal deficits - Labs CBC & Chem 7: 11/25/21 06:23 11/25/21 07:34 Labs: Abnormal Lab Results - Last 24 Hours (Table) 11/24/21 11/25/21 11/25/21 Range/Units 10:36 06:23 06:34 RBC 3.04 L (4.30-5.90) m/uL Hgb 8.6 L D (13.0-17.5) gm/dL Hct 26.7 L (39.0-53.0) % RDW 19.8 H (11.5-15.5) % Plt Count 47 L (150-450) k/uL Monocytes # (Manual) 1.26 H (0-1.0) k/uL Metamyelocytes # (Man) 0.18 H (0) k/uL Myelocytes # (Manual) 0.54 H (0) k/uL Nucleated RBCs 1 H (0-0) /100 WBC Creatinine (0.66-1.25) mg/dL Glucose (74-99) mg/dL POC Glucose (mg/dL) 104 H (75-99) mg/dL Calcium (8.4-10.2) mg/dL Alkaline Phosphatase (38-126) U/L Total Protein (6.3-8.2) g/dL Albumin (3.5-5.0) g/dL Crossmatch See Detail 11/25/21 Range/Units 07:34 RBC (4.30-5.90) m/uL Hgb (13.0-17.5) gm/dL Hct (39.0-53.0) % RDW (11.5-15.5) % Plt Count (150-450) k/uL Monocytes # (Manual) (0-1.0) k/uL Metamyelocytes # (Man) (0) k/uL Myelocytes # (Manual) (0) k/uL Nucleated RBCs (0-0) /100 WBC Creatinine 0.44 L (0.66-1.25) mg/dL Glucose 112 H (74-99) mg/dL POC Glucose (mg/dL) (75-99) mg/dL Calcium 8.2 L (8.4-10.2) mg/dL Alkaline Phosphatase 187 H (38-126) U/L Total Protein 5.5 L (6.3-8.2) g/dL Albumin 2.2 L (3.5-5.0) g/dL Crossmatch Assessment and Plan Plan: Pneumonia, likely related to aspiration Acute hypoxic respiratory failure, related to pneumonia, patient was started on BiPAP in the emergency room. Improving Sepsis, as evidenced by severe hypothymia, tachypnea, and elevated lactic acid Lactic acidosis Severe hypothermia on presentation related to sepsis. 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 Hemoglobin 6.6unit of PRBCs have been ordered per critical care Loose stools will order stool for C. diff Patient remains in the intensive care unit Critical care service is following patient remains on IV antibiotics Continue tube feedings For DVT prophylaxis we will use Lovenox Prognosis is guarded will follow closely
[2021-11-26] MEDS: SODIUM CHLORIDE 0.9% IVPB SCH ×3 (07:11→17:40)
[2021-11-26] MEDS: VALPROATE SODIUM IVPB SCH ×3 (07:11→17:40)
[2021-11-26] MEDS: PIPERACILLIN-TAZOBACTAM 3.375 GM in SODIUM CHLORIDE 0.9% 100 ML IVPB SCH ×3 (10:10→22:18)
[2021-11-26] MEDS: PANTOPRAZOLE 40 MG/10 ML VIAL IVP SCH (10:11)
[2021-11-26] MEDS: risperiDONE 0.25 MG TAB PO SCH (10:11)
[2021-11-26 12:05] LABS: HCT 24.6 % (39.6-50.0); HGB 7.6 g/dL (13.0-17.0); MCH 26.7 pg (27.0-32.0); MCHC 30.9 g/dL (32.0-37.0); MCV 86.3 fL (80.0-97.0); Mean Platelet Volume 9.7 fL (9.5-12.2); NRBC Per 100 WBC 1.8 /100 WBCS (0.0-0.0); Platelet Count 89 X 10*3/uL (140-440); RBC 2.85 X 10*6/uL (4.40-5.60); RDW 20.8 % (11.5-14.5); WBC 9.43 X 10*3/uL (4.50-10.00)
[2021-11-26 12:06] LABS: Basophils # (M) 0 X 10*3/uL (0.00-0.10); Eosinophils # (M) 0.38 X 10*3/uL (0.04-0.35); Immature Platelet Fraction 4.8 % (1.1-6.1); Lymphocytes # (M) 1.04 X 10*3/uL (0.90-5.00); Metamyelocytes % 1 % (0-0); Monocytes # (M) 0.85 X 10*3/uL (0.20-1.00); Myelocytes % 4 % (0-0); Neutrophils % (M) 71 %
--- NOTE | 2021-11-26 12:24 | P.PN ---
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 EMS was called for respiratory distress and al tered mental status. Apparently patient was seen normal 30 minutes prior to their evaluation. Patient had progressive shortness of breath, lethargy. At baseline patient is alert but nonverbal. COVID-19 PCR was negative, and patient is vaccinated. Patient had a pulse ox of only 60% on room air upon EMS arrival, and his extremities were cold to touch. No previous history of pulmonary disease or heart failure. Patient has had previous history of pneumonia. Chest x-ray showed pulmonary interstitial and airspace edema, and left lower lobe pneumonia. Patient was significantly tachypneic, hypoxic, his CODE STATUS is DO NOT RESUSCITATE, and his legal guardian wanted supportive treatment with antibiotics and BiPAP support, patient was placed on BiPAP support with pressures of 14/7 and FiO2 100%. Patient is hypothermic with a temp of 87F, his blood pressure was borderline low on arrival at 92/47, and has been as low as 88/60. His laboratory findings showed a white count of 5.7, hemoglobin of 9.4, platelet count of 76, INR of 1.3, sodium of 143, potassium is 4.1, CO2 of 37, BUN 38, creatinine 0.78, plasma lactic acid of 2.2, alk phos was elevated at 202, but AST and ALT were within normal limits at 35 and 12 respectively, troponin was 0.055, ammonia level was 11, proBNP was 384. Urinalysis showed 3+ glucose, trace protein but no evidence of infection, valproic acid level was elevated at 124. COVID-19 PCR was negative as mentioned above. Patient was given a dose of azithromycin and Rocephin in the emergency department, he was given IV fluids, he was placed on the blanket warmer, blood cultures have been sent. he was admitted to the intensive care unit. This morning he seen in the ICU, on BiPAP at 14 and 7 and FiO2 100%, he is tachypneic with a respiratory rate in the 55-60 breaths per minute. He is poorly responsive, he is using accessory muscles of breathing. he still hypothermic but the temp is improved and is up to 94.8F, he remains on the blanket warmer. Blood pressure is 116/72, is in sinus mechanism, tachycardic. His blood gas showed pO2 of 58, pCO 2 of 61, and pH of 7.35, this was done on the FiO2 of 100%. We spoke to the mother on the phone who is his legal guardian, we updated her on the patient's condition, and that he is doing quite poorly. She stated that she would like to continue supportive treatment with antibiotics, fluids and BiPAP support. She is not ready to make him comfort care. On 11/19/2021 patient seen in follow-up in intensive care unit, he remains on BiPAP support with pressures of 18/7 and FiO2 has been dropped down to 80%, patient seems to be oxygenating slightly better compared to yesterday, still quite tachypneic, with a respiratory rate in the 40s and 50s. Still poorly responsive, and his work of breathing is still quite significant, although on today's exam his minute ventilation is seems to be down to 9.8 compared to 19 L/m on yesterday's exam. Today's chest x-ray shows pulmonary vascular congestio n and a large right pleural effusion, and a small left pleural effusion. Patient has received a dose of IV Lasix early this morning, he continues on antibiotics with Zosyn, remains on breathing treatments. His temperature has improved, and this morning his temperature is 97.6F, blood pressure stable, it's 100/57, with a mean of 71, and patient is not requiring vasopressor support, yesterday patient was experiencing frequent episodes of hypoglycemia, and he was requiring frequent IV pushes of 50% dextrose, we placed the patient on 10% dextrose infusion at 75 ML per hour, today the rate has been decreased down to 50 ML per hour, he still has pointed was seen at a rate of 10 ML per hour. Today's labs have been reviewed, his white blood cell count is increased and is up to 18.4, hemoglobin is 8.0, his sodium is 149, potassium is 3.9, chloride is 112, CO2 is 32, BUN is 18 creatinine 0.77. His lactic acid was 2.7 on yesterday's labs. His urine output is in the order of 40-50 ML per hour. Patient has been nothing by mouth due to being BiPAP dependent, he has not been able to take aneurysmal oral medications, he is on IV Protonix and Lovenox for GI and DVT prophylaxis. On 11/20/2021 patient is seen in follow-up in the intensive care unit, he is opening his eyes to voice today, however he is not responding verbally. Patient is nonverbal at baseline according to the medical records. He seems to be breathing more comfortably today, remains on BiPAP with pressures of 18/7 and F iO2 of 60%, with a pulse ox of 95%, less tachypneic compared to previous exams, his respiratory rate is ranging between 28-36 breaths per minute, tidal volume was 268, his minute ventilation is 8.6. He did have an episode of hypothermia this morning with a temp of 94.1 axillary, she is on a blanket warmer right now, but overall his temperature has been better controlled, and he's had less episodes of hypothermia in the last 24 hours. Blood pressure is 106/61, patient is not requiring any vasopressor support, he remains on D10 at 50 ML per hour, and 0.9 normal saline at a rate of 20 ML per hour. Today's chest x-ray has been reviewed, showing persistent but improving infiltrate in the right lung, and worsening infiltrate throughout the left lung. Patient has received intermittent doses of Lasix, he has produced 1.4 L in urine output in the last 24 hours, his slightly and positive fluid balance, +65 ML over the last 24 hours. Patient is in sinus mechanism. Patient continues on Zosyn for empiric antibiotic coverage, so far his blood cultures have shown no growth. Today's labs have been reviewed, white blood cell count is improving and is down to 14.4, hemoglobin 7.0, platelet count is 48, sodium is 149, potassium is 3.9, chloride is 111, CO2 30, BUN is 22, creatinine 0.79, AST is 63, ALT is 11, and alkaline phosphatase is 151. She is oral medications have been discontinued all except for Depakote which has been switched over to IV, patient continues on breathing treatments, and as needed Ativan for possibility of breakthrough seizures. Patient has not had any seizure activity observed. Patient had episode of bradycardia, he was seen by cardiology, echocardiogram showed preserved LV function with EF of 60-65%, mild mitral regurg, mild tricuspid regurg, and a small generalized pericardial effusion. Overall clinically patient seems to have improved since admission, we'll attempt to get the patient of trial on high flow nasal cannula, to put her NG tube and and possibly start nutrition, hydration, and restart oral medications The patient is seen today 11/21/2021 in follow-up in the intensive care unit. He is currently positioned on his left side. He is arousable. He opens his eyes spontaneously. He does remain on BiPAP 18/7 and 60% FiO2. He is on D10 at 50 mL per hour. He is on antibiotics in the form of Zosyn. He did have a right nare nasogastric tube placed yesterday. He's been initiated on Jevity at 40 ML's per hour. He is currently afebrile. Hemodynamically stable. Respiratory rate improved currently at 21. White count 12.8. Hemoglobin 7.3. Platelet count 49,000. Sodium 140. Potassium 3.3. Bicarb 32. Creatinine 0.60. Gluco se 120. AST 48. ALT 11. He remains on DuoNeb inhalations. Lovenox for DVT prophylaxis. Protonix for GI prophylaxis. He's been back on valproic acid IV. Urine output has been adequate. He is currently in a positive balance of 690 ML's. Dick catheter remains in place. Currently 51.5 kg. Chest x-ray is now showing near complete opacification of the left lung. The cultures revealing no growth to date. The patient is seen today 11/22/2021 in follow-up in the intensive care unit. He is currently resting fairly comfortably in bed. He remains on BiPAP 18/7 and 30% FiO2. He has D5.9 at 50 MLS per hour. He is being nourished with Jevity tube feedings at 40 ML's per hour which is goal. His chest x-ray is showing improvement in aeration of the left lung with residual left lower lobe infiltrate and atelectasis. He remains on Zosyn. Microbiology is negative. White count 9.2. Hemoglobin 7.6. Platelet count 41,000. Sodium 142. Potassium 3.6. Bicarb 37. Creatinine 0.64. Glucose 213. AST 38. ALT 11. . Remains in a positive balance. His weight is 52 kg. He is on Lovenox for DVT prophylaxis. No evidence of seizure activity. The patient is seen today 11/23/2021 in follow-up in the intensive care unit. He is currently off the BiPAP and on 5 L high flow nasal cannula maintaining O2 saturations in the 90s. His eyes spontaneously but does not follow any simple commands. He is nonverbal. He did have a nasogastric tube placed and he is being nourished with vital at 40 ML's per hour which is goal. He has D5.9 normal saline at 50 MLS per hour. Follow-up chest x-ray reveals left lower lobe opacity and a small left pleural effusion, no significant change. There is mild right lung base atelectasis. No pneumothorax. Blood glucose 117. He is continued on DuoNeb inhalations. Antibiotics in the form of Zosyn. Continued on valproic acid and Risperal. Ativan when necessary. Protonix for GI prophylaxis. The patient is seen today 11/26/2021 in follow-up in the regular medical floor. He is currently resting in bed. Awake. Remains nonverbal. No acute distress. Maintaining O2 saturations in the mid 90s on 3 L/m per nasal cannula. Temperature is 99.5 axillary. Slightly tachycardic. Blood pressure stable. White count 9.4. Hemoglobin 7.6. Platelet count 89,000. He remains on Zosyn, bronchodilators, chest physiotherapy. He has received 1 unit of packed red blood cells this admission. The cultures revealed no growth. He is currently in a -1.3 L balance. Objective - Vital Signs Vital signs: Vital Signs Temp 99.5 F 11/26/21 08:00 Pulse 106 H 11/26/21 08:00 Resp 20 11/26/21 08:00 BP 107/56 11/26/21 08:00 Pulse Ox 95 11/26/21 08:00 Intake & Output 11/25/21 11/26/21 11/26/21 18:59 06:59 18:59 Intake Total 1655 Output Total 880 1300 300 Balance 775 -1300 -300 Weight 53.8 kg 54.1 kg Intake: IV 595 Dextrose 5%-0.9% NaCl 1, 450 000 ml @ 50 mls/hr IV . Q20H [facility] Rx#:[id number] Piperacillin-Tazobactam 3 100 .375 gm In Sodium Chloride 0.9% 100 ml @ 25 mls/hr IVPB Q8HR [facility] Rx# :[id number] Sodium Chloride 0.9% 1, 45 000 ml @ 20 mls/hr IV . Q24H [facility] Rx#:[id number] Intake, IV Titration 700 Amount Dextrose 5%-0.9% NaCl 1, 600 000 ml @ 50 mls/hr IV . Q20H [facility] Rx#:[id number] Valproate Sodium 375 mg 100 In Sodium Chloride 0.9% 100 ml @ 100 mls/hr IVPB Q6HR [facility] Rx#:[id number] Tube Feeding 360 Output: Urine 880 1300 300 Other: Voiding Method Indwelling Catheter Indwelling Catheter # Bowel Movements 1 1 - Exam GENERAL EXAM: This is a 36-year-old male patient, with developmental delay, small statured, appears younger than stated age, in no significant respiratory distress, on 3 L nasal cannula The patient is awake, opening eyes to voice, but not verbally responding, patient is nonverbal at baseline HEAD: Normocephalic/atraumatic. EYES: Normal reaction of pupils, equal size. Conjunctiva pink, sclera white. NOSE: Right nare NG tube in place. Clear with pink turbinates. THROAT: No erythema or exudates. NECK: No masses, no JVD, no thyroid enlargement, no adenopathy. CHEST: No chest wall deformity. Symmetrical expansion. LUNGS: Equal air entry with crackles in the bilateral bases. CVS: Regular rate and rhythm, normal S1 and S2, no gallops, no murmurs, no rubs ABDOMEN: Soft, nontender. No hepatosplenomegaly, normal bowel sounds, no guarding or rigidity. EXTREMITIES: No clubbing, no edema, no cyanosis, 2+ pulses and upper and lower extremities. MUSCULOSKELETAL: Contractures. SPINE: No scoliosis or deformity SKIN: No rashes CENTRAL NERVOUS SYSTEM: Opens eyes to voice, breathing fairly comfortably - Labs CBC & Chem 7: 11/26/21 07:09 11/25/21 07:34 Labs: Abnormal Lab Results - Last 24 Hours (Table) 11/26/21 Range/Units 07:09 RBC 2.85 L (4.40-5.60) X 10*6/uL Hgb 7.6 L (13.0-17.0) g/dL Hct 24.6 L (39.6-50.0) % MCH 26.7 L (27.0-32.0) pg MCHC 30.9 L (32.0-37.0) g/dL RDW 20.8 H (11.5-14.5) % Plt Count 89 L (140-440) X 10*3/uL Plt Count Comment DECREASED A Absolute Nucleated RBC 0.17 H (0.00-0.00) X 10*3/uL Metamyelocytes % 1 H (0-0) % Myelocytes % 4 H (0-0) % Eosinophils # (Manual) 0.38 H (0.04-0.35) X 10*3/uL NRBC/100 WBC Diff 1.8 H (0.0-0.0) /100 WBCS Assessment and Plan Assessment: 1. Acute hypoxic respiratory failure related to acute pneumonia, possibly related to acute aspiration. COVID-19 PCR was negative. Improving and the patient is currently on 3 L nasal cannula. Remains on Zosyn 2 Lactic acidosis related to the above, 3 Hypothermia related to sepsis, improved 4 Thrombocytopenia possibly related to sepsis, current platelets at 41,000 5 Anemia, with no clear evidence of bleeding, of unknown etiology, currently hemoglobin 7.6 6 Seizure disorder 7 History of developmental delay 8 Patient is nonverbal at baseline 9 History of meningitis with brain injury at 7 weeks of age Plan: The patient was seen and evaluated Labs reviewed Improving and currently on 3 L nasal cannula Being nourished with vital 40 ML's per hour which is goal Continue Zosyn and ID consulted for duration of treatment Chest physiotherapy, bronchodilators DO NOT RESUSCITATE/DO NOT INTUBATE CODE STATUS The plan is to return the patient to his usual [facility], discharge planning in place I, the cosigning physician, performed a history & physical examination of the patient. Lungs sounds faint crackles in the posterior bases. Maintaining O2 saturations in the 90s on 3 L high flow nasal cannula. I discussed the assessment and plan of care with my nurse practitioner, Rhiannon Barrera. I attest to the above note as dictated by her. I have personally seen and examined the patient, performed the documentation and the assessment and plan as written. Number of minutes spent on the visit: 10.
[2021-11-26 12:56] LABS: Glucose,Whole Blood 103 mg/dL (75-99)
[2021-11-26 13:02] LABS: ALT 10 U/L (10-49); AST 41 U/L (14-35); African American GFR (CKD) 169.5 (60.0-200.0); Albumin 2.1 g/dL (3.8-4.9); Alkaline Phosphatase 184 U/L (41-126); BUN/Creat Ratio 29.77 Ratio (12.00-20.00); Blood Urea Nitrogen 12.8 mg/dL (9.0-27.0); Calcium 8.2 mg/dL (8.7-10.3); Carbon Dioxide 26.5 mmol/L (20.0-27.5); Chloride 102 mmol/L (96-109); Glucose 111 mg/dL (70-110); Non-African American GFR(CKD) 146.3 (60.0-200.0); Potassium 4.4 mmol/L (3.5-5.5); Sodium 140 mmol/L (135-145); Total Bilirubin <0.15 mg/dL (0.30-1.20); Total Protein 5.1 g/dL (6.2-8.2)
[2021-11-26 17:22] LABS: Glucose,Whole Blood 108 mg/dL (75-99)
[2021-11-26] MEDS: DEXTROSE 5%-0.9% NACL 1,000 ML IV SCH (17:50)
[2021-11-26 21:09] LABS: Glucose,Whole Blood 105 mg/dL (75-99)
[2021-11-27] MEDS: PIPERACILLIN-TAZOBACTAM 3.375 GM in SODIUM CHLORIDE 0.9% 100 ML IVPB SCH ×4 (04:25→21:20)
[2021-11-27] MEDS: DEXTROSE 5%-0.9% NACL 1,000 ML IV SCH ×3 (04:27→23:20)
[2021-11-27 05:17] LABS: Glucose,Whole Blood 102 mg/dL (75-99)
[2021-11-27] MEDS: SODIUM CHLORIDE 0.9% IVPB SCH ×6 (06:19→23:20)
[2021-11-27] MEDS: VALPROATE SODIUM IVPB SCH ×6 (06:19→23:20)
[2021-11-27] MEDS: PANTOPRAZOLE 40 MG/10 ML VIAL IVP SCH (08:41)
[2021-11-27] MEDS: risperiDONE 0.25 MG TAB PO SCH (08:41)
--- NOTE | 2021-11-27 10:56 | P.PN ---
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 EMS was called for respiratory distress and al tered mental status. Apparently patient was seen normal 30 minutes prior to their evaluation. Patient had progressive shortness of breath, lethargy. At baseline patient is alert but nonverbal. COVID-19 PCR was negative, and patient is vaccinated. Patient had a pulse ox of only 60% on room air upon EMS arrival, and his extremities were cold to touch. No previous history of pulmonary disease or heart failure. Patient has had previous history of pneumonia. Chest x-ray showed pulmonary interstitial and airspace edema, and left lower lobe pneumonia. Patient was significantly tachypneic, hypoxic, his CODE STATUS is DO NOT RESUSCITATE, and his legal guardian wanted supportive treatment with antibiotics and BiPAP support, patient was placed on BiPAP support with pressures of 14/7 and FiO2 100%. Patient is hypothermic with a temp of 87F, his blood pressure was borderline low on arrival at 92/47, and has been as low as 88/60. His laboratory findings showed a white count of 5.7, hemoglobin of 9.4, platelet count of 76, INR of 1.3, sodium of 143, potassium is 4.1, CO2 of 37, BUN 38, creatinine 0.78, plasma lactic acid of 2.2, alk phos was elevated at 202, but AST and ALT were within normal limits at 35 and 12 respectively, troponin was 0.055, ammonia level was 11, proBNP was 384. Urinalysis showed 3+ glucose, trace protein but no evidence of infection, valproic acid level was elevated at 124. COVID-19 PCR was negative as mentioned above. Patient was given a dose of azithromycin and Rocephin in the emergency department, he was given IV fluids, he was placed on the blanket warmer, blood cultures have been sent. he was admitted to the intensive care unit. This morning he seen in the ICU, on BiPAP at 14 and 7 and FiO2 100%, he is tachypneic with a respiratory rate in the 55-60 breaths per minute. He is poorly responsive, he is using accessory muscles of breathing. he still hypothermic but the temp is improved and is up to 94.8F, he remains on the blanket warmer. Blood pressure is 116/72, is in sinus mechanism, tachycardic. His blood gas showed pO2 of 58, pCO 2 of 61, and pH of 7.35, this was done on the FiO2 of 100%. We spoke to the mother on the phone who is his legal guardian, we updated her on the patient's condition, and that he is doing quite poorly. She stated that she would like to continue supportive treatment with antibiotics, fluids and BiPAP support. She is not ready to make him comfort care. On 11/19/2021 patient seen in follow-up in intensive care unit, he remains on BiPAP support with pressures of 18/7 and FiO2 has been dropped down to 80%, patient seems to be oxygenating slightly better compared to yesterday, still quite tachypneic, with a respiratory rate in the 40s and 50s. Still poorly responsive, and his work of breathing is still quite significant, although on today's exam his minute ventilation is seems to be down to 9.8 compared to 19 L/m on yesterday's exam. Today's chest x-ray shows pulmonary vascular congestio n and a large right pleural effusion, and a small left pleural effusion. Patient has received a dose of IV Lasix early this morning, he continues on antibiotics with Zosyn, remains on breathing treatments. His temperature has improved, and this morning his temperature is 97.6F, blood pressure stable, it's 100/57, with a mean of 71, and patient is not requiring vasopressor support, yesterday patient was experiencing frequent episodes of hypoglycemia, and he was requiring frequent IV pushes of 50% dextrose, we placed the patient on 10% dextrose infusion at 75 ML per hour, today the rate has been decreased down to 50 ML per hour, he still has pointed was seen at a rate of 10 ML per hour. Today's labs have been reviewed, his white blood cell count is increased and is up to 18.4, hemoglobin is 8.0, his sodium is 149, potassium is 3.9, chloride is 112, CO2 is 32, BUN is 18 creatinine 0.77. His lactic acid was 2.7 on yesterday's labs. His urine output is in the order of 40-50 ML per hour. Patient has been nothing by mouth due to being BiPAP dependent, he has not been able to take aneurysmal oral medications, he is on IV Protonix and Lovenox for GI and DVT prophylaxis. On 11/20/2021 patient is seen in follow-up in the intensive care unit, he is opening his eyes to voice today, however he is not responding verbally. Patient is nonverbal at baseline according to the medical records. He seems to be breathing more comfortably today, remains on BiPAP with pressures of 18/7 and F iO2 of 60%, with a pulse ox of 95%, less tachypneic compared to previous exams, his respiratory rate is ranging between 28-36 breaths per minute, tidal volume was 268, his minute ventilation is 8.6. He did have an episode of hypothermia this morning with a temp of 94.1 axillary, she is on a blanket warmer right now, but overall his temperature has been better controlled, and he's had less episodes of hypothermia in the last 24 hours. Blood pressure is 106/61, patient is not requiring any vasopressor support, he remains on D10 at 50 ML per hour, and 0.9 normal saline at a rate of 20 ML per hour. Today's chest x-ray has been reviewed, showing persistent but improving infiltrate in the right lung, and worsening infiltrate throughout the left lung. Patient has received intermittent doses of Lasix, he has produced 1.4 L in urine output in the last 24 hours, his slightly and positive fluid balance, +65 ML over the last 24 hours. Patient is in sinus mechanism. Patient continues on Zosyn for empiric antibiotic coverage, so far his blood cultures have shown no growth. Today's labs have been reviewed, white blood cell count is improving and is down to 14.4, hemoglobin 7.0, platelet count is 48, sodium is 149, potassium is 3.9, chloride is 111, CO2 30, BUN is 22, creatinine 0.79, AST is 63, ALT is 11, and alkaline phosphatase is 151. She is oral medications have been discontinued all except for Depakote which has been switched over to IV, patient continues on breathing treatments, and as needed Ativan for possibility of breakthrough seizures. Patient has not had any seizure activity observed. Patient had episode of bradycardia, he was seen by cardiology, echocardiogram showed preserved LV function with EF of 60-65%, mild mitral regurg, mild tricuspid regurg, and a small generalized pericardial effusion. Overall clinically patient seems to have improved since admission, we'll attempt to get the patient of trial on high flow nasal cannula, to put her NG tube and and possibly start nutrition, hydration, and restart oral medications The patient is seen today 11/21/2021 in follow-up in the intensive care unit. He is currently positioned on his left side. He is arousable. He opens his eyes spontaneously. He does remain on BiPAP 18/7 and 60% FiO2. He is on D10 at 50 mL per hour. He is on antibiotics in the form of Zosyn. He did have a right nare nasogastric tube placed yesterday. He's been initiated on Jevity at 40 ML's per hour. He is currently afebrile. Hemodynamically stable. Respiratory rate improved currently at 21. White count 12.8. Hemoglobin 7.3. Platelet count 49,000. Sodium 140. Potassium 3.3. Bicarb 32. Creatinine 0.60. Gluco se 120. AST 48. ALT 11. He remains on DuoNeb inhalations. Lovenox for DVT prophylaxis. Protonix for GI prophylaxis. He's been back on valproic acid IV. Urine output has been adequate. He is currently in a positive balance of 690 ML's. Dick catheter remains in place. Currently 51.5 kg. Chest x-ray is now showing near complete opacification of the left lung. The cultures revealing no growth to date. The patient is seen today 11/22/2021 in follow-up in the intensive care unit. He is currently resting fairly comfortably in bed. He remains on BiPAP 18/7 and 30% FiO2. He has D5.9 at 50 MLS per hour. He is being nourished with Jevity tube feedings at 40 ML's per hour which is goal. His chest x-ray is showing improvement in aeration of the left lung with residual left lower lobe infiltrate and atelectasis. He remains on Zosyn. Microbiology is negative. White count 9.2. Hemoglobin 7.6. Platelet count 41,000. Sodium 142. Potassium 3.6. Bicarb 37. Creatinine 0.64. Glucose 213. AST 38. ALT 11. . Remains in a positive balance. His weight is 52 kg. He is on Lovenox for DVT prophylaxis. No evidence of seizure activity. The patient is seen today 11/23/2021 in follow-up in the intensive care unit. He is currently off the BiPAP and on 5 L high flow nasal cannula maintaining O2 saturations in the 90s. His eyes spontaneously but does not follow any simple commands. He is nonverbal. He did have a nasogastric tube placed and he is being nourished with vital at 40 ML's per hour which is goal. He has D5.9 normal saline at 50 MLS per hour. Follow-up chest x-ray reveals left lower lobe opacity and a small left pleural effusion, no significant change. There is mild right lung base atelectasis. No pneumothorax. Blood glucose 117. He is continued on DuoNeb inhalations. Antibiotics in the form of Zosyn. Continued on valproic acid and Risperal. Ativan when necessary. Protonix for GI prophylaxis. The patient is seen today 11/26/2021 in follow-up in the regular medical floor. He is currently resting in bed. Awake. Remains nonverbal. No acute distress. Maintaining O2 saturations in the mid 90s on 3 L/m per nasal cannula. Temperature is 99.5 axillary. Slightly tachycardic. Blood pressure stable. White count 9.4. Hemoglobin 7.6. Platelet count 89,000. He remains on Zosyn, bronchodilators, chest physiotherapy. He has received 1 unit of packed red blood cells this admission. The cultures revealed no growth. He is currently in a -1.3 L balance. The patient is seen today 11/27/2021 in follow-up on the regular medical floor. He is resting comfortably in bed. Awake. Remains nonverbal. Does not appear in any acute distress. He is maintaining O2 saturation in the 90s on 2 L/m per nasal cannula. He's been afebrile. Hemodynamically stable. Blood cultures revealed no growth. He is status post 1 unit of packed red blood cells this admission. Most recent hemoglobin 7.6. Labs pending for today. He is continued on antibiotics in the form of Zosyn. Continue bronchodilators. He had been off anticoagulants due to thrombocytopenia. He is continued to be nourished via right Tera NG tube. Vital AF at 50 MLS per hour. Objective - Vital Signs Vital signs: Vital Signs Temp 99.0 F 11/27/21 05:47 Pulse 75 11/27/21 05:47 Resp 20 11/27/21 05:47 BP 111/55 11/27/21 05:47 Pulse Ox 94 L 11/27/21 10:00 Intake & Output 11/26/21 11/27/21 11/27/21 18:59 06:59 18:59 Intake Total 700 1400 Output Total 900 750 Balance -200 650 Weight 54.9 kg Intake: IV 800 Dextrose 5%-0.9% NaCl 1, 400 000 ml @ 50 mls/hr IV . Q20H [facility] Rx#:[id number] Piperacillin-Tazobactam 3 200 .375 gm In Sodium Chloride 0.9% 100 ml @ 25 mls/hr IVPB Q8HR [facility] Rx# :[id number] Valproate Sodium 375 mg 200 In Sodium Chloride 0.9% 100 ml @ 100 mls/hr IVPB Q6HR [facility] Rx#:[id number] Intake, IV Titration 700 Amount Dextrose 5%-0.9% NaCl 1, 600 000 ml @ 50 mls/hr IV . Q20H [facility] Rx#:[id number] Piperacillin-Tazobactam 3 100 .375 gm In Sodium Chloride 0.9% 100 ml @ 200 mls/hr IVPB Q6H [facility] Rx#:[id number] Oral 0 Tube Feeding 600 Output: Urine 900 750 Other: Voiding Method Indwelling Catheter Indwelling Catheter # Bowel Movements 1 2 1 - Exam GENERAL EXAM: This is a 36-year-old male patient, with developmental delay, small statured, appears younger than stated age, in no significant respiratory distress, on 3 L nasal cannula The patient is awake, opening eyes to voice, but not verbally responding, pat ient is nonverbal at baseline HEAD: Normocephalic/atraumatic. EYES: Normal reaction of pupils, equal size. Conjunctiva pink, sclera white. NOSE: Right nare NG tube in place. Clear with pink turbinates. THROAT: No erythema or exudates. NECK: No masses, no JVD, no thyroid enlargement, no adenopathy. CHEST: No chest wall deformity. Symmetrical expansion. LUNGS: Equal air entry with crackles in the bilateral bases. CVS: Regular rate and rhythm, normal S1 and S2, no gallops, no murmurs, no rubs ABDOMEN: Soft, nontender. No hepatosplenomegaly, normal bowel sounds, no guarding or rigidity. EXTREMITIES: No clubbing, no edema, no cyanosis, 2+ pulses and upper and lower extremities. MUSCULOSKELETAL: Contractures. SPINE: No scoliosis or deformity SKIN: No rashes CENTRAL NERVOUS SYSTEM: Opens eyes to voice, breathing fairly comfortably - Labs CBC & Chem 7: 11/26/21 07:09 11/26/21 07:09 Labs: Abnormal Lab Results - Last 24 Hours (Table) 11/26/21 11/26/21 11/26/21 Range/Units 07:09 07:09 12:52 RBC 2.85 L (4.40-5.60) X 10*6/uL Hgb 7.6 L (13.0-17.0) g/dL Hct 24.6 L (39.6-50.0) % MCH 26.7 L (27.0-32.0) pg MCHC 30.9 L (32.0-37.0) g/dL RDW 20.8 H (11.5-14.5) % Plt Count 89 L (140-440) X 10*3/uL Plt Count Comment DECREASED A Absolute Nucleated RBC 0.17 H (0.00-0.00) X 10*3/uL Metamyelocytes % 1 H (0-0) % Myelocytes % 4 H (0-0) % Eosinophils # (Manual) 0.38 H (0.04-0.35) X 10*3/uL NRBC/100 WBC Diff 1.8 H (0.0-0.0) /100 WBCS Creatinine 0.4 L (0.6-1.5) mg/dL BUN/Creatinine Ratio 29.77 H (12.00-20.00) Ratio Glucose 111 H (70-110) mg/dL POC Glucose (mg/dL) 103 H (75-99) mg/dL Calcium 8.2 L (8.7-10.3) mg/dL Total Bilirubin <0.15 L (0.30-1.20) mg/dL AST 41 H (14-35) U/L Alkaline Phosphatase 184 H (41-126) U/L Total Protein 5.1 L (6.2-8.2) g/dL Albumin 2.1 L (3.8-4.9) g/dL Albumin/Globulin Ratio 0.70 L (1.60-3.17) g/dL 11/26/21 11/26/21 11/27/21 Range/Units 17:13 21:00 05:14 RBC (4.40-5.60) X 10*6/uL Hgb (13.0-17.0) g/dL Hct (39.6-50.0) % MCH (27.0-32.0) pg MCHC (32.0-37.0) g/dL RDW (11.5-14.5) % Plt Count (140-440) X 10*3/uL Plt Count Comment Absolute Nucleated RBC (0.00-0.00) X 10*3/uL Metamyelocytes % (0-0) % Myelocytes % (0-0) % Eosinophils # (Manual) (0.04-0.35) X 10*3/uL NRBC/100 WBC Diff (0.0-0.0) /100 WBCS Creatinine (0.6-1.5) mg/dL BUN/Creatinine Ratio (12.00-20.00) Ratio Glucose (70-110) mg/dL POC Glucose (mg/dL) 108 H 105 H 102 H (75-99) mg/dL Calcium (8.7-10.3) mg/dL Total Bilirubin (0.30-1.20) mg/dL AST (14-35) U/L Alkaline Phosphatase (41-126) U/L Total Protein (6.2-8.2) g/dL Albumin (3.8-4.9) g/dL Albumin/Globulin Ratio (1.60-3.17) g/dL Assessment and Plan Assessment: 1. Acute hypoxic respiratory failure related to acute pneumonia, possibly related to acute aspiration. COVID-19 PCR was negative. Improving and the patient is currently on 3 L nasal cannula. Remains on Zosyn 2 Lactic acidosis related to the above, recovered 3 Hypothermia related to sepsis, improved 4 Thrombocytopenia possibly related to sepsis, current platelets at 89,000 5 Anemia, with no clear evidence of bleeding, of unknown etiology, currently hemoglobin 7.6 6 Seizure disorder 7 History of developmental delay 8 Patient is nonverbal at baseline 9 History of meningitis with brain injury at 7 weeks of age Plan: The patient was seen and evaluated Table from the pulmonary standpoint Currently on 2 L nasal cannula Being nourished with vital 50 ML's per hour which is goal May need PEG tube placement Midline placed today Continue Zosyn and ID consulted for duration of treatment Chest physiotherapy, bronchodilators DO NOT RESUSCITATE/DO NOT INTUBATE CODE STATUS The plan is to return the patient to his usual [facility], discharge planning in place We will see on an as-needed basis I, the cosigning physician, performed a history & physical examination of the patient. Lungs sounds faint crackles in the posterior bases. Maintaining O2 saturations in the 90s on 2 L high flow nasal cannula. I discussed the assessment and plan of care with my nurse practitioner, Rhiannon Barrera. I attest to the above note as dictated by her. I have personally seen and examined the patient, performed the documentation and the assessment and plan as written. Number of minutes spent on the visit: 10.
--- NOTE | 2021-11-27 11:18 | P.CONS ---
History of Present Illness - Reason for Consult Consult date: 11/26/21 pneumonia Requesting physician: Bubba Wiggins - Chief Complaint shortness of breath x days - History of Present Illness History of Present Illness : Patient is a 36-year-old male with a past medical history significant for viral meningitis at a young age subsequently did have a developmental delay patient was brought into the hospital more than a week ago for evaluation of respiratory distress and mental status changes apparently the symptoms started just before presentation to the hospital and did have progressive shortness of breath and lethargy on arrival of the EMS the patient was noticed to be cold to touch and his O2 sats were 60% patient subsequently has been evaluated by pulmonary services patient did have a chest x-ray pulmonary edema left lobe pneumonia also possible patient did have a hypothermia on admission to the hospital subsequently the pressure has been normal patient did have a elevated white count subsequently has normalized UA was negative Covid testing was negative patient did have blood culture has been negative patient has been treated with Zosyn subsequently stabilized and has been transferred to the regular floor infectious disease was consulted today for further management of antibiotic therapy patient did have an NG for feeding as high risk of aspiration per the nursing staff and most information has been obtained from review the chart and nursing staff the patient still could not provide any history Review of system: Positive points mentioned in history of present illness complete review could not be obtained because of his underlying medical condition. Past medical history : Reviewed, documented below Past surgical history : Reviewed, documented below Social history: Reviewed, documented below Medications: Reviewed, as documented below EXAMINATION: Vital sigans= Reviewed and documented below GENERAL DESCRIPTION: Middle-aged male lying in bed, no distress. No tachypnea or accessory muscle of respiration use. HEENT: Shows Pallor , no scleral icterus. Oral mucous membrane is dry. NECK: Trachea central, no thyromegaly. LUNGS: Unlabored breathing. Decreased breath sound the base. No wheeze or cr ackle. HEART: S1, S2, regular rate and rhythm. ABDOMEN: Soft, no tenderness , guarding or rigidity EXTREMITIES: Bilateral lower leg did have a stage II pressure ulcer but no cellulitis SKIN: No rash, no masses palpable. NEUROLOGICAL: The patient is lethargic orientation could not be determined becau se of underlying mental status LABS AND RADIOLOGY: Reviewed results see below Assessment : 1-Patient admitted to the hospital with acute respiratory failure with evidence of left lower lobe pneumonia concern for possible aspiration etiology in this patient has shown some improvement with the IV Zosyn however his oral intake seems to be an issue and still have the NG in 2-bilateral lower leg with stage II pressure ulcer no cellulitis from the pressure because of his contracture Plan: 1-patient to continue with the Zosyn while waiting for his GI issues/swallowing issue to be resolved 2-Aquacel silver dressing to bilateral lower leg wound change every 48 hour We will follow on clinical condition and cultures to further adjust medication if needed Thank you for this consultation we will follow the patient along with you Past Medical History Past Medical History: Pneumonia, Seizure Disorder Additional Past Medical History / Comment(s): 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 History of Any Multi-Drug Resistant Organisms: None Reported Past Surgical History: No Surgical Hx Reported Additional Past Anesthesia/Blood Transfusion Reaction / Comm: Pt has never had s urgery. Past Psychological History: No Psychological Hx Reported Smoking Status: Never smoker Past Alcohol Use History: None Reported Past Drug Use History: None Reported - Past Family History Mother Family Medical History: No Reported History Father Additional Family Medical History / Comment(s): Father has some joint problems and has had bilateral hip and knee replacements.spondolytis Medications and Allergies Home Medications Medication Instructions Recorded Confirmed Type Cholecalciferol [Vitamin D3 (25 25 mcg PO DAILY 12/23/16 11/18/21 History Mcg = 1000 Iu)] Divalproex Sprinkle [Depakote 750 mg PO Q12H 12/23/16 11/18/21 History Sprinkle] LORazepam [Ativan] 1.5 mg PO TID 12/23/16 11/18/21 History Topiramate [Topamax] 30 mg PO BID 12/23/16 11/18/21 History Acetaminophen Tab [Tylenol Tab] 500 mg PO Q4-6H PRN 11/18/21 11/18/21 History Ibuprofen [Motrin Ib] 200 mg PO Q6H PRN 11/18/21 11/18/21 History Magnesium Hydroxide [Milk of 2,400 mg PO DAILY PRN 11/18/21 11/18/21 History Magnesia] diphenhydrAMINE ELIXIR [Benadryl 25 mg PO Q6H PRN 11/18/21 11/18/21 History Elixir] diphenhydrAMINE [Benadryl] 25 mg PO Q6H PRN 11/18/21 11/18/21 History guaiFENesin-DM 100-10MG/5ML 10 ml PO Q4H PRN 11/18/21 11/18/21 History [Robitussin DM] risperiDONE [RisperDAL] 0.25 mg PO DAILY 11/18/21 11/18/21 History Allergies Allergy/AdvReac Type Severity Reaction Status Date / Time No Known Allergies Allergy Verified 06/30/19 12:21 Physical Exam Vitals: Vital Signs Temp Pulse Pulse Resp BP BP Pulse Ox 11/26/21 08:00 99.5 F 106 H 20 107/56 95 11/26/21 02:00 99.8 F H 103 H 18 111/54 93 L 11/25/21 20:00 91 18 11/25/21 19:29 97.6 F 91 18 112/63 97 11/25/21 14:00 89 6 L 101/49 95 11/25/21 13:00 87 18 112/72 98 11/25/21 12:00 98.6 F 100 28 H 112/61 96 11/25/21 11:00 101 H 36 H 108/70 91 L Intake and Output 11/25/21 11/26/21 11/26/21 22:59 06:59 14:59 Intake Total 700 Output Total 1300 300 Balance 700 -1300 -300 Intake: Intake, IV Titration 700 Amount Dextrose 5%-0.9% NaCl 1, 600 000 ml @ 50 mls/hr IV . Q20H [facility] Rx#:[id number] Valproate Sodium 375 mg 100 In Sodium Chloride 0.9% 100 ml @ 100 mls/hr IVPB Q6HR [facility] Rx#:[id number] Output: Urine 1300 300 Other: Voiding Method Indwelling Catheter # Bowel Movements 1 Weight 54.1 kg Results CBC & Chem 7: 11/26/21 07:09 11/26/21 07:09 Labs: Abnormal Lab Results - Last 24 Hours (Table) 11/25/21 Range/Units 11:38 POC Glucose (mg/dL) 112 H (75-99) mg/dL
[2021-11-27 11:43] LABS: Anisocytosis Moderate; HGB 9.4 gm/dL (13.0-17.5); Hypochromasia Marked; MCH 27.5 pg (25.0-35.0); MCHC 31.2 g/dL (31.0-37.0); MCV 87.9 fL (80.0-100.0); Mean Platelet Volume 9.3; RBC 3.41 m/uL (4.30-5.90); WBC 11.6 k/uL (3.8-10.6)
[2021-11-27 11:45] LABS: Platelet Count 219 k/uL (150-450)
[2021-11-27 11:50] LABS: ALT 12 U/L (4-49); AST 49 U/L (17-59); African American GFR (CKD) >90 (>60 ml/min/1.73 sqM); Albumin 2.4 g/dL (3.5-5.0); Albumin/Globulin Ratio 0.7; Alkaline Phosphatase 188 U/L (38-126); Anion Gap 7 mmol/L; Blood Urea Nitrogen 14 mg/dL (9-20); Calcium 8.1 mg/dL (8.4-10.2); Carbon Dioxide 27 mmol/L (22-30); Chloride 103 mmol/L (98-107); Globulin 3.4 g/dL; Glucose 107 mg/dL (74-99); Non-African American GFR(CKD) >90 (>60 ml/min/1.73 sqM); Sodium 137 mmol/L (137-145); Total Bilirubin 0.6 mg/dL (0.2-1.3); Total Protein 5.8 g/dL (6.3-8.2)
--- NOTE | 2021-11-27 12:44 | P.PN ---
Subjective Progress Note Date: 11/27/21 Tolu Sánchez, is a 36-year-old male, well-known to my practice , with history of physical debility , mental debility , and seizure disorder , patient is a resident at a residential ,who presented to [facility] with a chief complaint of mental status changes and worsening shortness of breath. He was evaluated in the emergency room vital examination on presentation revealed a temperature of 87 pulse 56 respiration 49 blood pressure 102/58 pulse ox 75% on 15 L nonrebreather mask Laboratory data revealed a white blood count of 5.7 hemoglobin 9.4 platelet count 76 sodium 148 potassium 4.1 chloride 37 BUN 38 creatinine 0.78 lactic acid 2.7 troponin 0.055 BNP 384 COVID-19 PCR was negative Chest x-ray done in the emergency room revealed the radiology there was evidence of pulmonary edema, and evidence of left lower lobe pneumonia, EKG revealed supraventricular bradycardia with nonspecific T-wave abnormality. Patient was admitted to ICU for further evaluation and treatment On 11/19/2021 patient was seen and examined in the ICU, his vital exam reveals a temperature of 97.6 pulse 89 respiration 43 blood pressure 100/57 pulse ox 99% on BiPAP with FiO2 of 80% he is poorly responsive he moves his extremity to stimuli he is nonverbal, laboratory data today reveals a white blood count of 18.0 hemoglobin 8.0 platelet count 54 sodium 149 potassium 3.9 chloride 112 CO2 32 BUN 18 creatinine 0.77 On 11/20/2021 patient remains in the intensive care unit on BiPAP. Patient hypothermic 94.1 Bear hugger blanket increased. Current vitals temp 94.1, heart rate 67 and respiratory rate 35, blood pressure 106/61 patient satting 94% on BiPAP. Patient remains on IV antibiotics per nursing staff attempts will be made to place NG tube and restart tube feedings On 11/21/2021 patient was seen and examined in the ICU, he is maintained on BiPAP FiO2 is 60% patient is drowsy but responds to stimuli. Vital exam reveals a temperature of 97.5 pulse 65 respiration 23 blood pressure 114/68 pulse ox is 98% on BiPAP with FiO2 of 60% white blood count 12.8 hemoglobin 7.3 platelet count 14 9 sodium 140 potassium 3.3 chloride 102 CO2 32 BUN 19 creatinine 0.6 chest x-ray reveals new complete whiteout of the left hemithorax. Patient is clinically slightly better, pulmonary critical care are following On 11/22/2021 patient remains in the intensive care unit. Patient has been taken off BiPAP currently on 6 L. Patient has been started on tube feedings. Remains on IV Zosyn. Patient does respond to stimuli. Hemoglobin 7.6. White blood cell 9.2. Chest x-ray completed showing improvement variation of left lung with residual left lower lobe infiltrate and or atelectasis with effusion is patchy right perihilar and right lower lobe infiltrate. On 11/23/2021 patient was seen and examined in the ICU he is alert nonverbal in no apparent distress, he is maintained on oxygen 4 L via nasal cannula vital exam reveals a temperature of 98.5 pulse 105 respiration 17 blood pressure 102/ 62 pulse ox 96% on 4 L nasal cannula, labs are still pending for today, patient does not seem to be in any pain or discomfort, mother is at the bedside and case was discussed in detail with her. CODE STATUS is no cord will continue with current management will follow closely On 11/24/2021 patient remains in the intensive care unit. Patient's oxygen has been increased to high flow 10 L. Per nursing staff patient has been having loose stools will order C. diff. Patient remains on IV Zosyn. 1 unit of PRBCs have been ordered per critical care due to hemoglobin being 6.6. No signs of bleeding per nursing staff. On 11/25/2021 patient was seen and examined in the ICU he is alert nonverbal in no apparent distress, he is maintained on oxygen 4 L via nasal cannula vital exam reveals a temperature of 98.5 pulse 105 respiration 17 blood pressure 102/62 pulse ox 96% on 4 L nasal cannula, patient does not seem to be in any pain or discomfort, mother is at the bedside and case was discussed in detail with her. CODE STATUS is no cord will continue with current management will follow closely On 11/25/2021 patient was seen and examined on the medical floor he was transferred out of ICU today. Currently patient is maintained on oxygen 4 L via nasal cannula, vital exam reveals a temperature of 98.6 pulse 100 respiration 28 pressure 112/61 pulse ox 96% on 4 L nasal cannula is white blood count is 9.0 hemoglobin 8.6 platelet count 47 BUN 15 creatinine 0.44 On 11/26/2021 patient was seen and examined on the medical floor he is alert nonverbal in no apparent distress he is maintained on oxygen 3 L via nasal cannula vital exam reveals a temperature of 99.5 pulse 106 respiration 20 blood pressure 107/56 pulse ox 95% on 3 L nasal cannula white blood count 9.4 hemoglobin 7.6 platelet count 89 he is followed by pulmonary critical care and is improving gradually he is still maintained on IV antibiotic Zosyn On 11/27/2021 patient is resting in bed. Patient remains nonverbal which is his baseline. Patient did have attempted speech eval to assess swallow. Spoke to the pathologist unable to complete it due to possible discomfort related to NG tube orders given to remove NG tube and reassess tomorrow. Patient may need PEG tube if unable to pass swallow eval. Patient remains on IV antibiotics. Temp 99.0, heart rate 75, respiratory rate 20, pulse ox 95% on 2 L nasal cannula Objective - Vital Signs Vital signs: Vital Signs Temp 99.0 F 11/27/21 05:47 Pulse 75 11/27/21 05:47 Resp 20 11/27/21 05:47 BP 111/55 11/27/21 05:47 Pulse Ox 94 L 11/27/21 10:00 Intake & Output 11/26/21 11/27/21 11/27/21 18:59 06:59 18:59 Intake Total 700 1400 Output Total 900 750 Balance -200 650 Weight 54.9 kg Intake: IV 800 Dextrose 5%-0.9% NaCl 1, 400 000 ml @ 50 mls/hr IV . Q20H [facility] Rx#:[id number] Piperacillin-Tazobactam 3 200 .375 gm In Sodium Chloride 0.9% 100 ml @ 25 mls/hr IVPB Q8HR [facility] Rx# :[id number] Valproate Sodium 375 mg 200 In Sodium Chloride 0.9% 100 ml @ 100 mls/hr IVPB Q6HR [facility] Rx#:[id number] Intake, IV Titration 700 Amount Dextrose 5%-0.9% NaCl 1, 600 000 ml @ 50 mls/hr IV . Q20H [facility] Rx#:[id number] Piperacillin-Tazobactam 3 100 .375 gm In Sodium Chloride 0.9% 100 ml @ 200 mls/hr IVPB Q6H [facility] Rx#:[id number] Oral 0 Tube Feeding 600 Output: Urine 900 750 Other: Voiding Method Indwelling Catheter Indwelling Catheter # Bowel Movements 1 2 1 - Exam In general patient is maintained on BiPAP he is responsive to stimuli HEENT head normocephalic and atraumatic Neck is supple no JVD no goiter no lymphadenopathy no carotid bruit Chest examination is clear to auscultation no crackles no wheezing Cardiac exam reveals regular heart sounds S1 and S2 no gallops no murmurs Abdomen is soft nontender no organomegaly with normal bowel sounds Extremity exam reveals no edema no cyanosis or clubbing Neurological examination reveals no gross focal deficits - Labs CBC & Chem 7: 11/27/21 11:00 11/27/21 11:00 Labs: Abnormal Lab Results - Last 24 Hours (Table) 11/26/21 11/26/21 11/26/21 Range/Units 07:09 12:52 17:13 WBC (3.8-10.6) k/uL RBC (4.30-5.90) m/uL Hgb (13.0-17.5) gm/dL Hct (39.0-53.0) % RDW (11.5-15.5) % Creatinine 0.4 L (0.6-1.5) mg/dL BUN/Creatinine Ratio 29.77 H (12.00-20.00) Ratio Glucose 111 H (70-110) mg/dL POC Glucose (mg/dL) 103 H 108 H (75-99) mg/dL Calcium 8.2 L (8.7-10.3) mg/dL Total Bilirubin <0.15 L (0.30-1.20) mg/dL AST 41 H (14-35) U/L Alkaline Phosphatase 184 H (41-126) U/L Total Protein 5.1 L (6.2-8.2) g/dL Albumin 2.1 L (3.8-4.9) g/dL Albumin/Globulin Ratio 0.70 L (1.60-3.17) g/dL 11/26/21 11/27/21 11/27/21 Range/Units 21:00 05:14 11:00 WBC 11.6 H (3.8-10.6) k/uL RBC 3.41 L (4.30-5.90) m/uL Hgb 9.4 L (13.0-17.5) gm/dL Hct 30.0 L (39.0-53.0) % RDW 20.0 H (11.5-15.5) % Creatinine (0.6-1.5) mg/dL BUN/Creatinine Ratio (12.00-20.00) Ratio Glucose (70-110) mg/dL POC Glucose (mg/dL) 105 H 102 H (75-99) mg/dL Calcium (8.7-10.3) mg/dL Total Bilirubin (0.30-1.20) mg/dL AST (14-35) U/L Alkaline Phosphatase (41-126) U/L Total Protein (6.2-8.2) g/dL Albumin (3.8-4.9) g/dL Albumin/Globulin Ratio (1.60-3.17) g/dL 11/27/21 Range/Units 11:00 WBC (3.8-10.6) k/uL RBC (4.30-5.90) m/uL Hgb (13.0-17.5) gm/dL Hct (39.0-53.0) % RDW (11.5-15.5) % Creatinine 0.38 L (0.6-1.5) mg/dL BUN/Creatinine Ratio (12.00-20.00) Ratio Glucose 107 H (70-110) mg/dL POC Glucose (mg/dL) (75-99) mg/dL Calcium 8.1 L (8.7-10.3) mg/dL Total Bilirubin (0.30-1.20) mg/dL AST (14-35) U/L Alkaline Phosphatase 188 H (41-126) U/L Total Protein 5.8 L (6.2-8.2) g/dL Albumin 2.4 L (3.8-4.9) g/dL Albumin/Globulin Ratio (1.60-3.17) g/dL Assessment and Plan Plan: Pneumonia, likely related to aspiration Acute hypoxic respiratory failure, related to pneumonia, patient was started on BiPAP in the emergency room. Improving Sepsis, as evidenced by severe hypothymia, tachypnea, and elevated lactic acid Acute hypoxic respiratory failure related to acute pneumonia possibly related to acute aspiration Lactic acidosis Severe hypothermia on presentation related to sepsis. 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 Hemoglobin 6.6. Patient received 1 unit PRBCs. Stool for occult blood negative Loose stools will order stool for C. diff History of meningitis with brain injury at 7 weeks of age DVT prophylaxis Lovenox. GI prophylaxis Protonix Patient has been transferred out of the intensive care unit Critical care service is following patient remains on IV antibiotics Swallow eval to be completed without NG tube patient may need PEG tube
[2021-11-27 13:44] LABS: Band Neutrophils % 3 %; Eosinophils # (M) 0.12 k/uL (0-0.7); Lymphocytes # (M) 1.97 k/uL (1.0-4.8); Metamyelocytes # (M) 0.12 k/uL (0); Metamyelocytes % 1 %; Monocytes # (M) 1.51 k/uL (0-1.0); Myelocytes # (M) 0.12 k/uL (0); Myelocytes % 1 %; Neutrophils % (M) 65 %; Nucleated Red Blood Cells 0 /100 WBC (0-0); Total Cells Counted 200
[2021-11-28] MEDS: PIPERACILLIN-TAZOBACTAM 3.375 GM in SODIUM CHLORIDE 0.9% 100 ML IVPB SCH ×4 (04:16→21:48)
[2021-11-28] MEDS: SODIUM CHLORIDE 0.9% IVPB SCH ×4 (05:32→23:50)
[2021-11-28] MEDS: VALPROATE SODIUM IVPB SCH ×4 (05:32→23:50)
[2021-11-28] MEDS: PANTOPRAZOLE 40 MG/10 ML VIAL IVP SCH (07:33)
[2021-11-28] MEDS: ENOXAPARIN 40 MG/0.4 ML SYRINGE SQ SCH (07:33)
[2021-11-28] MEDS: risperiDONE 0.25 MG TAB PO SCH (07:33)
--- NOTE | 2021-11-28 07:56 | P.PN ---
Subjective Progress Note Date: 11/26/21 Tolu Sánchez, is a 36-year-old male, well-known to my practice , with history of physical debility , mental debility , and seizure disorder , patient is a resident at a senior care ,who presented to [facility] with a chief complaint of mental status changes and worsening shortness of breath. He was evaluated in the emergency room vital examination on presentation revealed a temperature of 87 pulse 56 respiration 49 blood pressure 102/58 pulse ox 75% on 15 L nonrebreather mask Laboratory data revealed a white blood count of 5.7 hemoglobin 9.4 platelet count 76 sodium 148 potassium 4.1 chloride 37 BUN 38 creatinine 0.78 lactic acid 2.7 troponin 0.055 BNP 384 COVID-19 PCR was negative Chest x-ray done in the emergency room revealed the radiology there was evidence of pulmonary edema, and evidence of left lower lobe pneumonia, EKG revealed supraventricular bradycardia with nonspecific T-wave abnormality. Patient was admitted to ICU for further evaluation and treatment On 11/19/2021 patient was seen and examined in the ICU, his vital exam reveals a temperature of 97.6 pulse 89 respiration 43 blood pressure 100/57 pulse ox 99% on BiPAP with FiO2 of 80% he is poorly responsive he moves his extremity to stimuli he is nonverbal, laboratory data today reveals a white blood count of 18.0 hemoglobin 8.0 platelet count 54 sodium 149 potassium 3.9 chloride 112 CO2 32 BUN 18 creatinine 0.77 On 11/20/2021 patient remains in the intensive care unit on BiPAP. Patient hypothermic 94.1 Bear hugger blanket increased. Current vitals temp 94.1, heart rate 67 and respiratory rate 35, blood pressure 106/61 patient satting 94% on BiPAP. Patient remains on IV antibiotics per nursing staff attempts will be made to place NG tube and restart tube feedings On 11/21/2021 patient was seen and examined in the ICU, he is maintained on BiPAP FiO2 is 60% patient is drowsy but responds to stimuli. Vital exam reveals a temperature of 97.5 pulse 65 respiration 23 blood pressure 114/68 pulse ox is 98% on BiPAP with FiO2 of 60% white blood count 12.8 hemoglobin 7.3 platelet count 14 9 sodium 140 potassium 3.3 chloride 102 CO2 32 BUN 19 creatinine 0.6 chest x-ray reveals new complete whiteout of the left hemithorax. Patient is clinically slightly better, pulmonary critical care are following On 11/22/2021 patient remains in the intensive care unit. Patient has been taken off BiPAP currently on 6 L. Patient has been started on tube feedings. Remains on IV Zosyn. Patient does respond to stimuli. Hemoglobin 7.6. White blood cell 9.2. Chest x-ray completed showing improvement variation of left lung with residual left lower lobe infiltrate and or atelectasis with effusion is patchy right perihilar and right lower lobe infiltrate. On 11/23/2021 patient was seen and examined in the ICU he is alert nonverbal in no apparent distress, he is maintained on oxygen 4 L via nasal cannula vital exam reveals a temperature of 98.5 pulse 105 respiration 17 blood pressure 102/ 62 pulse ox 96% on 4 L nasal cannula, labs are still pending for today, patient does not seem to be in any pain or discomfort, mother is at the bedside and case was discussed in detail with her. CODE STATUS is no cord will continue with current management will follow closely On 11/24/2021 patient remains in the intensive care unit. Patient's oxygen has been increased to high flow 10 L. Per nursing staff patient has been having loose stools will order C. diff. Patient remains on IV Zosyn. 1 unit of PRBCs have been ordered per critical care due to hemoglobin being 6.6. No signs of bleeding per nursing staff. On 11/25/2021 patient was seen and examined in the ICU he is alert nonverbal in no apparent distress, he is maintained on oxygen 4 L via nasal cannula vital exam reveals a temperature of 98.5 pulse 105 respiration 17 blood pressure 102/62 pulse ox 96% on 4 L nasal cannula, patient does not seem to be in any pain or discomfort, mother is at the bedside and case was discussed in detail with her. CODE STATUS is no cord will continue with current management will follow closely On 11/25/2021 patient was seen and examined on the medical floor he was transferred out of ICU today. Currently patient is maintained on oxygen 4 L via nasal cannula, vital exam reveals a temperature of 98.6 pulse 100 respiration 28 pressure 112/61 pulse ox 96% on 4 L nasal cannula is white blood count is 9.0 hemoglobin 8.6 platelet count 47 BUN 15 creatinine 0.44 On 11/26/2021 patient was seen and examined on the medical floor he is alert nonverbal in no apparent distress he is maintained on oxygen 3 L via nasal cannula vital exam reveals a temperature of 99.5 pulse 106 respiration 20 blood pressure 107/56 pulse ox 95% on 3 L nasal cannula white blood count 9.4 hemoglobin 7.6 platelet count 89 he is followed by pulmonary critical care and is improving gradually he is still maintained on IV antibiotic Zosyn Objective - Vital Signs Vital signs: Vital Signs Temp 99.5 F 11/26/21 08:00 Pulse 106 H 11/26/21 08:00 Resp 20 11/26/21 08:00 BP 107/56 11/26/21 08:00 Pulse Ox 95 11/26/21 08:00 Intake & Output 11/25/21 11/26/21 11/26/21 18:59 06:59 18:59 Intake Total 1655 Output Total 880 1300 300 Balance 775 -1300 -300 Weight 53.8 kg 54.1 kg Intake: IV 595 Dextrose 5%-0.9% NaCl 1, 450 000 ml @ 50 mls/hr IV . Q20H [facility] Rx#:[id number] Piperacillin-Tazobactam 3 100 .375 gm In Sodium Chloride 0.9% 100 ml @ 25 mls/hr IVPB Q8HR [facility] Rx# :[id number] Sodium Chloride 0.9% 1, 45 000 ml @ 20 mls/hr IV . Q24H [facility] Rx#:[id number] Intake, IV Titration 700 Amount Dextrose 5%-0.9% NaCl 1, 600 000 ml @ 50 mls/hr IV . Q20H [facility] Rx#:[id number] Valproate Sodium 375 mg 100 In Sodium Chloride 0.9% 100 ml @ 100 mls/hr IVPB Q6HR [facility] Rx#:[id number] Tube Feeding 360 Output: Urine 880 1300 300 Other: Voiding Method Indwelling Catheter Indwelling Catheter # Bowel Movements 1 1 - Exam In general patient is maintained on BiPAP he is responsive to stimuli HEENT head normocephalic and atraumatic Neck is supple no JVD no goiter no lymphadenopathy no carotid bruit Chest examination is clear to auscultation no crackles no wheezing Cardiac exam reveals regular heart sounds S1 and S2 no gallops no murmurs Abdomen is soft nontender no organomegaly with normal bowel sounds Extremity exam reveals no edema no cyanosis or clubbing Neurological examination reveals no gross focal deficits - Labs CBC & Chem 7: 11/26/21 07:09 11/26/21 07:09 Labs: Abnormal Lab Results - Last 24 Hours (Table) 11/25/21 11/25/21 Range/Units 06:23 11:38 Monocytes # (Manual) 1.26 H (0-1.0) k/uL Metamyelocytes # (Man) 0.18 H (0) k/uL Myelocytes # (Manual) 0.54 H (0) k/uL Nucleated RBCs 1 H (0-0) /100 WBC POC Glucose (mg/dL) 112 H (75-99) mg/dL Assessment and Plan Plan: Pneumonia, likely related to aspiration Acute hypoxic respiratory failure, related to pneumonia, patient was started on BiPAP in the emergency room. Improving Sepsis, as evidenced by severe hypothymia, tachypnea, and elevated lactic acid Lactic acidosis Severe hypothermia on presentation related to sepsis. 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 Hemoglobin 6.6unit of PRBCs have been ordered per critical care Loose stools will order stool for C. diff Patient remains in the intensive care unit Critical care service is following patient remains on IV antibiotics Continue tube feedings For DVT prophylaxis we will use Lovenox Prognosis is guarded will follow closely
[2021-11-28 10:18] LABS: Basophils # (A) 0.04 X 10*3/uL (0.00-0.10); Basophils % (A) 0.4 %; Eosinophils # (A) 0.07 X 10*3/uL (0.04-0.35); Eosinophils % (A) 0.6 %; HCT 24.6 % (39.6-50.0); HGB 7.4 g/dL (13.0-17.0); Immature Grans, Automated 3.7 %; Lymphocytes # (A) 2.44 X 10*3/uL (0.90-5.00); Lymphocytes % (A) 21.4 %; MCH 26.6 pg (27.0-32.0); MCHC 30.1 g/dL (32.0-37.0); MCV 88.5 fL (80.0-97.0); Mean Platelet Volume 9.6 fL (9.5-12.2); Monocytes # (A) 1.49 X 10*3/uL (0.20-1.00); Monocytes % (A) 13.1 %; NRBC Per 100 WBC 2.2 /100 WBCS (0.0-0.0); Neutrophils # (A) 6.92 X 10*3/uL (1.80-7.70); Neutrophils % (A) 60.8 %; Platelet Count 184 X 10*3/uL (140-440); RBC 2.78 X 10*6/uL (4.40-5.60); RDW 20.7 % (11.5-14.5); WBC 11.38 X 10*3/uL (4.50-10.00)
[2021-11-28 10:22] LABS: ALT 10 U/L (10-49); AST 27 U/L (14-35); African American GFR (CKD) 159.3 (60.0-200.0); Albumin 2.1 g/dL (3.8-4.9); Alkaline Phosphatase 140 U/L (41-126); Carbon Dioxide 26.2 mmol/L (20.0-27.5); Chloride 104 mmol/L (96-109); Glucose 65 mg/dL (70-110); Non-African American GFR(CKD) 137.5 (60.0-200.0); Potassium 3.3 mmol/L (3.5-5.5); Sodium 142 mmol/L (135-145); Total Bilirubin <0.15 mg/dL (0.30-1.20); Total Protein 5.1 g/dL (6.2-8.2)
--- NOTE | 2021-11-28 15:19 | CDI ---
Please read my cunsultation.Did not feel like CHF Documentation Clarification Form Date: 11/28/2021 02:57:38 PM From: Fidelia Simmons CCS, CCDS Admit Date: 11/18/2021 02:55:00 AM Patient Name: Tolu Sánchez Visit Number: [id number] Discharge Date: ATTENTION: The Clinical Documentation Specialists (CDI) and [facility] Coding Staff appreciate your assistance in clarifying documentation. Please respond to the clarification below the line at the bottom and electronically sign. The CDI & [facility] Coding staff will review the response and follow-up if needed. Please note: Queries are made part of the Legal Health Record. If you have any questions, please contact the author of this message via ITS. Dr. Suzanne Brito: Per the CXRs from 10/18 through 11/24, CHF with bilateral pleural effusions are documented. The patient has no documented history of CHF. Additional information regarding the Acuity & Type of CHF is requested. History/Risk Factors per the 11/18 H/P: Physical debility, Mental debility & Seizure Disorder, Pneumonia, Viral Meningitis age 5 with Brain Injury, Wheelchair bound, Blind. Clinical Indicators: Presented to the ED on 11/18 via EMS from [facility] with SOB. In respiratory distress with altered mental status & lethargy, normally alert but nonverbal. PO only 60%. Admit with Sepsis and Pneumonia 11/18 VS: T 87 (rectal), P 61 - 56, R 30 (sob) - 49 - 67 (shallow, irregular), BP 92/46, 102/58; PO 85 nrb - 75 15% nrb - 84 100% BiPAP 11/18 LAB: BNP 384 11/18 ABG: pCO2 61, pO2 58, HCO3 34, Total CO2 36, O2 Sat 86.6 11/18 CXR: Pulmonary edema, mostly new, could be acute CHF, LLL pneumonia. 11/19 CXR: CHF with large right pleural effusion, increased, improved lt pleural effusion. 11/20 CXR: Effusion difficult to exclude. 11/21 CXR: New complete white out of the left hemithorax possibly due to combination of pleural effusion & volume loss/collapse. 11/22 CXR: Residual LLL infiltrate and/or atelectasis with effusion & RLL infiltrate. 11/23 CXR: LLL opacities and/or consolidation and small left pleural effusion, no change. 11/24 CXR: Small-moderate left and sm right effusions. Treatment 11/18: O2: nrb - BiPAP, IV Na Cl 500 mls @ 999 mls/hr q31M, INH Duoneb x1, IV Na Cl 1,000 mls @ 999 mls/hr q1H, INH Duoneb q4H/prn. 11/19: IV Lasix 40 mg x2, BiPAP 11/20: IV Lasix 40 mg x1, BiPAP 11/18 ECHO: Technically difficult study, Left ventricular wall thickness is normal. Left ventricular systolic function is normal w/EF 60-65%, Mild MR, Mild TR, Small, generalized pericardial effusion present. In your professional opinion, can you please clarify the Acuity & Type of CHF if known? [ ] Acute Diastolic Heart Failure [ ] Acute on Chronic Diastolic Heart Failure [ ] Heart Failure is ruled out [ ] Other, please specify [ ] Unable to determine (Template Last Revised: November 2020) MTDD
[2021-11-28] MEDS: LORazepam 0.5 MG TAB PO SCH ×2 (17:37→21:47)
--- NOTE | 2021-11-28 18:53 | P.PN ---
Subjective Progress Note Date: 11/28/21 Tolu Sánchez, is a 36-year-old male, well-known to my practice , with history of physical debility , mental debility , and seizure disorder , patient is a resident at a half-way ,who presented to [facility] with a chief complaint of mental status changes and worsening shortness of breath. He was evaluated in the emergency room vital examination on presentation revealed a temperature of 87 pulse 56 respiration 49 blood pressure 102/58 pulse ox 75% on 15 L nonrebreather mask Laboratory data revealed a white blood count of 5.7 hemoglobin 9.4 platelet count 76 sodium 148 potassium 4.1 chloride 37 BUN 38 creatinine 0.78 lactic acid 2.7 troponin 0.055 BNP 384 COVID-19 PCR was negative Chest x-ray done in the emergency room revealed the radiology there was evidence of pulmonary edema, and evidence of left lower lobe pneumonia, EKG revealed supraventricular bradycardia with nonspecific T-wave abnormality. Patient was admitted to ICU for further evaluation and treatment On 11/19/2021 patient was seen and examined in the ICU, his vital exam reveals a temperature of 97.6 pulse 89 respiration 43 blood pressure 100/57 pulse ox 99% on BiPAP with FiO2 of 80% he is poorly responsive he moves his extremity to stimuli he is nonverbal, laboratory data today reveals a white blood count of 18.0 hemoglobin 8.0 platelet count 54 sodium 149 potassium 3.9 chloride 112 CO2 32 BUN 18 creatinine 0.77 On 11/20/2021 patient remains in the intensive care unit on BiPAP. Patient hypothermic 94.1 Bear hugger blanket increased. Current vitals temp 94.1, heart rate 67 and respiratory rate 35, blood pressure 106/61 patient satting 94% on BiPAP. Patient remains on IV antibiotics per nursing staff attempts will be made to place NG tube and restart tube feedings On 11/21/2021 patient was seen and examined in the ICU, he is maintained on BiPAP FiO2 is 60% patient is drowsy but responds to stimuli. Vital exam reveals a temperature of 97.5 pulse 65 respiration 23 blood pressure 114/68 pulse ox is 98% on BiPAP with FiO2 of 60% white blood count 12.8 hemoglobin 7.3 platelet count 14 9 sodium 140 potassium 3.3 chloride 102 CO2 32 BUN 19 creatinine 0.6 chest x-ray reveals new complete whiteout of the left hemithorax. Patient is clinically slightly better, pulmonary critical care are following On 11/22/2021 patient remains in the intensive care unit. Patient has been taken off BiPAP currently on 6 L. Patient has been started on tube feedings. Remains on IV Zosyn. Patient does respond to stimuli. Hemoglobin 7.6. White blood cell 9.2. Chest x-ray completed showing improvement variation of left lung with residual left lower lobe infiltrate and or atelectasis with effusion is patchy right perihilar and right lower lobe infiltrate. On 11/23/2021 patient was seen and examined in the ICU he is alert nonverbal in no apparent distress, he is maintained on oxygen 4 L via nasal cannula vital exam reveals a temperature of 98.5 pulse 105 respiration 17 blood pressure 102/ 62 pulse ox 96% on 4 L nasal cannula, labs are still pending for today, patient does not seem to be in any pain or discomfort, mother is at the bedside and case was discussed in detail with her. CODE STATUS is no cord will continue with current management will follow closely On 11/24/2021 patient remains in the intensive care unit. Patient's oxygen has been increased to high flow 10 L. Per nursing staff patient has been having loose stools will order C. diff. Patient remains on IV Zosyn. 1 unit of PRBCs have been ordered per critical care due to hemoglobin being 6.6. No signs of bleeding per nursing staff. On 11/25/2021 patient was seen and examined in the ICU he is alert nonverbal in no apparent distress, he is maintained on oxygen 4 L via nasal cannula vital exam reveals a temperature of 98.5 pulse 105 respiration 17 blood pressure 102/62 pulse ox 96% on 4 L nasal cannula, patient does not seem to be in any pain or discomfort, mother is at the bedside and case was discussed in detail with her. CODE STATUS is no cord will continue with current management will follow closely On 11/26/2021 patient was seen and examined on the medical floor he was transferred out of ICU today. Currently patient is maintained on oxygen 4 L via nasal cannula, vital exam reveals a temperature of 98.6 pulse 100 respiration 28 pressure 112/61 pulse ox 96% on 4 L nasal cannula is white blood count is 9.0 hemoglobin 8.6 platelet count 47 BUN 15 creatinine 0.44 On 11/27/2021 patient was seen and examined on the medical floor he is alert nonverbal in no apparent distress he is maintained on oxygen 3 L via nasal cannula vital exam reveals a temperature of 99.5 pulse 106 respiration 20 blood pressure 107/56 pulse ox 95% on 3 L nasal cannula white blood count 9.4 hemoglobin 7.6 platelet count 89 he is followed by pulmonary critical care and is improving gradually he is still maintained on IV antibiotic Zosyn On 11/28/2021 patient was seen and examined on the medical floor he is alert nonverbal in no apparent distress he is maintained on oxygen 3 L via nasal cannula vital exam reveals a temperature of 99.5 pulse 106 respiration 20 blood pressure 107/56 pulse ox 95% on 3 L nasal cannula white blood count 9.4 hemoglobin 7.6 platelet count 89 he is followed by pulmonary critical care and is improving gradually he is still maintained on IV antibiotic Zosyn Objective - Vital Signs Vital signs: Vital Signs Temp 98.7 F 11/28/21 07:41 Pulse 93 11/28/21 07:41 Resp 15 11/28/21 07:41 BP 91/41 11/28/21 07:41 Pulse Ox 94 L 11/28/21 07:41 Intake & Output 11/27/21 11/28/21 11/28/21 18:59 06:59 18:59 Intake Total 1020 Output Total 900 400 Balance 120 -400 Weight 54.3 kg Intake: IV 920 Dextrose 5%-0.9% NaCl 1, 600 000 ml @ 50 mls/hr IV . Q20H [facility] Rx#:[id number] Sodium Chloride 0.9% 1, 120 000 ml @ 20 mls/hr IV . Q24H [facility] Rx#:[id number] Valproate Sodium 375 mg 200 In Sodium Chloride 0.9% 100 ml @ 100 mls/hr IVPB Q6HR [facility] Rx#:[id number] Intake, IV Titration 100 Amount Piperacillin-Tazobactam 3 100 .375 gm In Sodium Chloride 0.9% 100 ml @ 200 mls/hr IVPB Q6H [facility] Rx#:[id number] Output: Urine 900 400 Other: Voiding Method Indwelling Catheter Indwelling Catheter # Bowel Movements 1 - Exam In general patient is maintained on BiPAP he is responsive to stimuli HEENT head normocephalic and atraumatic Neck is supple no JVD no goiter no lymphadenopathy no carotid bruit Chest examination is clear to auscultation no crackles no wheezing Cardiac exam reveals regular heart sounds S1 and S2 no gallops no murmurs Abdomen is soft nontender no organomegaly with normal bowel sounds Extremity exam reveals no edema no cyanosis or clubbing Neurological examination reveals no gross focal deficits - Labs CBC & Chem 7: 11/28/21 06:28 11/28/21 06:28 Labs: Abnormal Lab Results - Last 24 Hours (Table) 11/27/21 11/27/21 Range/Units 11:00 11:00 WBC 11.6 H (3.8-10.6) k/uL RBC 3.41 L (4.30-5.90) m/uL Hgb 9.4 L (13.0-17.5) gm/dL Hct 30.0 L (39.0-53.0) % RDW 20.0 H (11.5-15.5) % Neutrophils # (Manual) 7.80 H (1.3-7.7) k/uL Monocytes # (Manual) 1.51 H (0-1.0) k/uL Metamyelocytes # (Man) 0.12 H (0) k/uL Myelocytes # (Manual) 0.12 H (0) k/uL Creatinine 0.38 L (0.66-1.25) mg/dL Glucose 107 H (74-99) mg/dL Calcium 8.1 L (8.4-10.2) mg/dL Alkaline Phosphatase 188 H (38-126) U/L Total Protein 5.8 L (6.3-8.2) g/dL Albumin 2.4 L (3.5-5.0) g/dL Assessment and Plan Plan: Pneumonia, likely related to aspiration Acute hypoxic respiratory failure, related to pneumonia, patient was started on BiPAP in the emergency room. Improving Sepsis, as evidenced by severe hypothymia, tachypnea, and elevated lactic acid Lactic acidosis Severe hypothermia on presentation related to sepsis. 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 Hemoglobin 6.6unit of PRBCs have been ordered per critical care Loose stools will order stool for C. diff Patient remains in the intensive care unit Critical care service is following patient remains on IV antibiotics Continue tube feedings For DVT prophylaxis we will use Lovenox Prognosis is guarded will follow closely
[2021-11-28] MEDS: TOPIRAMATE 25 MG TAB PO SCH (21:47)
[2021-11-28] MEDS: DEXTROSE 5%-0.9% NACL 1,000 ML IV SCH (21:47)
[2021-11-29] MEDS: PIPERACILLIN-TAZOBACTAM 3.375 GM in SODIUM CHLORIDE 0.9% 100 ML IVPB SCH ×4 (05:10→23:03)
[2021-11-29 05:41] LABS: % Iron Saturation 18.45 (15.00-50.00); Iron 59 ug/dL (65-175); Total Iron Binding Capacity 322 ug/dL (228-460); Vitamin B12 >2000.0 pg/mL (200.0-944.0)
[2021-11-29] MEDS: SODIUM CHLORIDE 0.9% IVPB SCH ×3 (06:29→17:44)
[2021-11-29] MEDS: VALPROATE SODIUM IVPB SCH ×3 (06:29→17:44)
[2021-11-29] MEDS: ENOXAPARIN 40 MG/0.4 ML SYRINGE SQ SCH (10:03)
[2021-11-29] MEDS: TOPIRAMATE 25 MG TAB PO SCH ×2 (10:04→20:50)
[2021-11-29] MEDS: PANTOPRAZOLE 40 MG/10 ML VIAL IVP SCH (10:04)
[2021-11-29] MEDS: LORazepam 0.5 MG TAB PO SCH ×3 (10:04→20:50)
[2021-11-29] MEDS: risperiDONE 0.25 MG TAB PO SCH (10:04)
[2021-11-29 10:06] LABS: ALT 9 U/L (10-49); AST 24 U/L (14-35); African American GFR (CKD) 159.3 (60.0-200.0); Albumin/Globulin Ratio 0.67 (1.60-3.17); Alkaline Phosphatase 131 U/L (41-126); Calcium 7.9 mg/dL (8.7-10.3); Carbon Dioxide 24.6 mmol/L (20.0-27.5); Chloride 109 mmol/L (96-109); Glucose 79 mg/dL (70-110); Non-African American GFR(CKD) 137.5 (60.0-200.0); Potassium 2.6 mmol/L (3.5-5.5); Sodium 145 mmol/L (135-145); Total Bilirubin <0.15 mg/dL (0.30-1.20)
[2021-11-29] MEDS ORDERED: Potassium Replacement Protocol 1 EACH MISC MISCELLANE PRN (10:09)
[2021-11-29 10:43] LABS: HGB 6.8 g/dL (13.0-17.0); MCHC 29.6 g/dL (32.0-37.0); MCV 87.8 fL (80.0-97.0); Mean Platelet Volume 8.8 fL (9.5-12.2); NRBC Per 100 WBC 3.3 /100 WBCS (0.0-0.0); Platelet Count 209 X 10*3/uL (140-440); RBC 2.62 X 10*6/uL (4.40-5.60); RDW 20.6 % (11.5-14.5); WBC 9.71 X 10*3/uL (4.50-10.00)
[2021-11-29 11:06] LABS: Basophils # (A) 0.02 X 10*3/uL (0.00-0.10); Basophils % (A) 0.2 %; Eosinophils # (A) 0.08 X 10*3/uL (0.04-0.35); Eosinophils % (A) 0.8 %; Immature Grans, Automated 2.2 %; Lymphocytes # (A) 2.53 X 10*3/uL (0.90-5.00); Lymphocytes % (A) 26.1 %; Monocytes # (A) 1.23 X 10*3/uL (0.20-1.00); Monocytes % (A) 12.7 %; Neutrophils # (A) 5.64 X 10*3/uL (1.80-7.70)
--- NOTE | 2021-11-29 11:57 | P.DS ---
Providers Date of admission: 11/18/21 02:55 Expected date of discharge: 11/29/21 Attending physician: Iveth Ramirez Consults: 11/18/21 02:55 Consult Physician Stat Consulting Provider: Bubba Wiggins Consult Reason/Comments: acute hypoxic resp failure, CAP Do you want consulting provider notified?: Yes 11/18/21 09:31 Consult Physician Routine Consulting Provider: Tresa Estes Consult Reason/Comments: abnormal EKG Do you want consulting provider notified?: Yes 11/26/21 08:35 Consult Physician Routine Consulting Provider: Jason Dumont Consult Reason/Comments: asp pneumonia Do you want consulting provider notified?: Yes Primary care physician: Iveth Ramirez [facility] Hospital Course: discharge diagnosis Sepsis, as evidenced by severe hypothymia, tachypnea, and elevated lactic acid Lactic acidosis Severe hypothermia on presentation related to sepsis. 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 Hemoglobin 6.6unit of PRBCs have been ordered per critical care Loose stools will order stool for C. diff Hospital course Tolu Sánchez, is a 36-year-old male, well-known to my practice , with history of physical debility , mental debility , and seizure disorder , patient is a resident at a snf ,who presented to [facility] with a chief complaint of mental status changes and worsening shortness of breath. He was evaluated in the emergency room vital examination on presentation revealed a temperature of 87 pulse 56 respiration 49 blood pressure 102/58 pulse ox 75% on 15 L nonrebreather mask Laboratory data revealed a white blood count of 5.7 hemoglobin 9.4 platelet count 76 sodium 148 potassium 4.1 chloride 37 BUN 38 creatinine 0.78 lactic acid 2.7 troponin 0.055 BNP 384 COVID-19 PCR was negative Chest x-ray done in the emergency room revealed the radiology there was evidence of pulmonary edema, and evidence of left lower lobe pneumonia, EKG revealed supraventricular bradycardia with nonspecific T-wave abnormality. Patient was admitted to ICU for further evaluation and treatment On 11/19/2021 patient was seen and examined in the ICU, his vital exam reveals a temperature of 97.6 pulse 89 respiration 43 blood pressure 100/57 pulse ox 99% on BiPAP with FiO2 of 80% he is poorly responsive he moves his extremity to stimuli he is nonverbal, laboratory data today reveals a white blood count of 18.0 hemoglobin 8.0 platelet count 54 sodium 149 potassium 3.9 chloride 112 CO2 32 BUN 18 creatinine 0.77 On 11/20/2021 patient remains in the intensive care unit on BiPAP. Patient hypothermic 94.1 Bear hugger blanket increased. Current vitals temp 94.1, heart rate 67 and respiratory rate 35, blood pressure 106/61 patient satting 94% on BiPAP. Patient remains on IV antibiotics per nursing staff attempts will be made to place NG tube and restart tube feedings On 11/21/2021 patient was seen and examined in the ICU, he is maintained on BiPAP FiO2 is 60% patient is drowsy but responds to stimuli. Vital exam reveals a temperature of 97.5 pulse 65 respiration 23 blood pressure 114/68 pulse ox is 98% on BiPAP with FiO2 of 60% white blood count 12.8 hemoglobin 7.3 platelet count 14 9 sodium 140 potassium 3.3 chloride 102 CO2 32 BUN 19 creatinine 0.6 chest x-ray reveals new complete whiteout of the left hemithorax. Patient is clinically slightly better, pulmonary critical care are following On 11/22/2021 patient remains in the intensive care unit. Patient has been taken off BiPAP currently on 6 L. Patient has been started on tube feedings. Remains on IV Zosyn. Patient does respond to stimuli. Hemoglobin 7.6. White blood cell 9.2. Chest x-ray completed showing improvement variation of left lung with residual left lower lobe infiltrate and or atelectasis with effusion is patchy right perihilar and right lower lobe infiltrate. On 11/23/2021 patient was seen and examined in the ICU he is alert nonverbal in no apparent distress, he is maintained on oxygen 4 L via nasal cannula vital exam reveals a temperature of 98.5 pulse 105 respiration 17 blood pressure 102/62 pulse ox 96% on 4 L nasal cannula, labs are still pending for today, patient does not seem to be in any pain or discomfort, mother is at the bedside and case was discussed in detail with her. CODE STATUS is no cord will continue with current management will follow closely On 11/24/2021 patient remains in the intensive care unit. Patient's oxygen has been increased to high flow 10 L. Per nursing staff patient has been having loose stools will order C. diff. Patient remains on IV Zosyn. 1 unit of PRBCs have been ordered per critical care due to hemoglobin being 6.6. No signs of bleeding per nursing staff. On 11/25/2021 patient was seen and examined in the ICU he is alert nonverbal in no apparent distress, he is maintained on oxygen 4 L via nasal cannula vital exam reveals a temperature of 98.5 pulse 105 respiration 17 blood pressure 102/62 pulse ox 96% on 4 L nasal cannula, patient does not seem to be in any pain or discomfort, mother is at the bedside and case was discussed in detail with her. CODE STATUS is no cord will continue with current management will follow closely On 11/26/2021 patient was seen and examined on the medical floor he was transferred out of ICU today. Currently patient is maintained on oxygen 4 L via nasal cannula, vital exam reveals a temperature of 98.6 pulse 100 respiration 28 pressure 112/61 pulse ox 96% on 4 L nasal cannula is white blood count is 9.0 hemoglobin 8.6 platelet count 47 BUN 15 creatinine 0.44 On 11/27/2021 patient was seen and examined on the medical floor he is alert nonverbal in no apparent distress he is maintained on oxygen 3 L via nasal cannula vital exam reveals a temperature of 99.5 pulse 106 respiration 20 blood pressure 107/56 pulse ox 95% on 3 L nasal cannula white blood count 9.4 hemoglobin 7.6 platelet count 89 he is followed by pulmonary critical care and is improving gradually he is still maintained on IV antibiotic Zosyn On 11/28/2021 patient was seen and examined on the medical floor he is alert nonverbal in no apparent distress he is maintained on oxygen 3 L via nasal cannula vital exam reveals a temperature of 99.5 pulse 106 respiration 20 blood pressure 107/56 pulse ox 95% on 3 L nasal cannula white blood count 9.4 hemoglobin 7.6 platelet count 89 he is followed by pulmonary critical care and is improving gradually he is still maintained on IV antibiotic Zosyn On 11/29/2021 patient is resting comfortably in bed. Diet reformations have been made per speech therapy. Patient to have potassium replaced prior to discharge. Patient to have IV iron prior to discharge. Patient planning to be DC'd back to facility. Current vitals temp 97.9, pulse rate 85, respiratory rate 16, blood pressure 122/70. Discussed case with infectious disease service is patient to be discharged on Avelox Patient Condition at Discharge: Stable Plan - Discharge Summary New Discharge Prescriptions: New Ferrous Sulfate [Feosol] 325 mg PO DAILY 30 Days #30 tab Moxifloxacin HCl [Avelox] 400 mg PO DAILY 7 Days #7 tablet Ipratropium-Albuterol Nebulize [Duoneb 0.5 mg-3 mg/3 ml Soln] 3 ml INHALATION RT-Q4H PRN ml PRN Reason: Shortness Of Breath Or Wheezing Continue Divalproex Sprinkle [Depakote Sprinkle] 750 mg PO Q12H Cholecalciferol [Vitamin D3 (25 Mcg = 1000 Iu)] 25 mcg PO DAILY Topiramate [Topamax] 30 mg PO BID LORazepam [Ativan] 1.5 mg PO TID risperiDONE [RisperDAL] 0.25 mg PO DAILY Acetaminophen Tab [Tylenol] 500 mg PO Q4-6H PRN PRN Reason: Fever And/ Or Pain guaiFENesin-DM 100-10MG/5ML [Robitussin DM] 10 ml PO Q4H PRN PRN Reason: Cough diphenhydrAMINE [Benadryl] 25 mg PO Q6H PRN PRN Reason: Allergy Symptoms diphenhydrAMINE ELIXIR [Benadryl Elixir] 25 mg PO Q6H PRN PRN Reason: Allergy Symptoms Magnesium Hydroxide [Milk of Magnesia] 2,400 mg PO DAILY PRN PRN Reason: Constipation Ibuprofen [Motrin Ib] 200 mg PO Q6H PRN PRN Reason: Fever And/ Or Pain Discharge Medication List Cholecalciferol [Vitamin D3 (25 Mcg = 1000 Iu)] 25 mcg PO DAILY 12/23/16 [History] Divalproex Sprinkle [Depakote Sprinkle] 750 mg PO Q12H 12/23/16 [History] LORazepam [Ativan] 1.5 mg PO TID 12/23/16 [History] Topiramate [Topamax] 30 mg PO BID 12/23/16 [History] Acetaminophen Tab [Tylenol] 500 mg PO Q4-6H PRN 11/18/21 [History] Ibuprofen [Motrin Ib] 200 mg PO Q6H PRN 11/18/21 [History] Magnesium Hydroxide [Milk of Magnesia] 2,400 mg PO DAILY PRN 11/18/21 [History] diphenhydrAMINE ELIXIR [Benadryl Elixir] 25 mg PO Q6H PRN 11/18/21 [History] diphenhydrAMINE [Benadryl] 25 mg PO Q6H PRN 11/18/21 [History] guaiFENesin-DM 100-10MG/5ML [Robitussin DM] 10 ml PO Q4H PRN 11/18/21 [History] risperiDONE [RisperDAL] 0.25 mg PO DAILY 11/18/21 [History] Ferrous Sulfate [Feosol] 325 mg PO DAILY 30 Days #30 tab 11/29/21 [Rx] Ipratropium-Albuterol Nebulize [Duoneb 0.5 mg-3 mg/3 ml Soln] 3 ml INHALATION RT-Q4H PRN ml 11/29/21 [Rx] Moxifloxacin HCl [Avelox] 400 mg PO DAILY 7 Days #7 tablet 11/29/21 [Rx] Follow up Appointment(s)/Referral(s): Iveth Ramirez MD [Primary Care Provider] - 1-2 days Activity/Diet/Wound Care/Special Instructions: Diet dysphagia level I pured diet Vader thick liquids 1:1 supervision Aspiration precautions
[2021-11-29] MEDS ORDERED: SODIUM FERRIC GLUCONAT-SUCROSE 125 MG in SODIUM CHLORIDE 0.9% 100 ML IVPB ONE (13:00)
[2021-11-29 14:55] VITALS: BMI 27.6
[2021-11-29] MEDS: POTASSIUM CHLORIDE 20 MEQ in WATER FOR INJECTION 1 100ML.BAG IVPB SCH ×3 (15:30→23:39)
[2021-11-29 20:00] VITALS: RESP 20
[2021-11-29] MEDS: DEXTROSE 5%-0.9% NACL 1,000 ML IV SCH (20:50)
--- NOTE | 2021-11-29 22:59 | P.PN ---
Subjective Progress Note Date: 11/27/21 Principal diagnosis: Aspiration pneumonia Patient is 36-year-old male with a past medical history significant for viral meningitis at a young age, developmental delay admitted to the hospital with respiratory distress and mental status changes has been diagnosed with aspiration pneumonia treated with the Zosyn. On today's evaluation that is 11/27/2021, the patient is afebrile the patient still have NG for feeding, patient been tolerating his tube feedings per the [facility] staff no vomiting or diarrhea has been recorded patient himself was not able to provide any history Objective - Vital Signs Vital signs: Vital Signs Temp 99.0 F 11/27/21 05:47 Pulse 75 11/27/21 05:47 Resp 20 11/27/21 05:47 BP 111/55 11/27/21 05:47 Pulse Ox 94 L 11/27/21 10:00 Intake & Output 11/26/21 11/27/21 11/27/21 18:59 06:59 18:59 Intake Total 700 1400 Output Total 900 750 Balance -200 650 Weight 54.9 kg Intake: IV 800 Dextrose 5%-0.9% NaCl 1, 400 000 ml @ 50 mls/hr IV . Q20H [facility] Rx#:[id number] Piperacillin-Tazobactam 3 200 .375 gm In Sodium Chloride 0.9% 100 ml @ 25 mls/hr IVPB Q8HR [facility] Rx# :[id number] Valproate Sodium 375 mg 200 In Sodium Chloride 0.9% 100 ml @ 100 mls/hr IVPB Q6HR [facility] Rx#:[id number] Intake, IV Titration 700 Amount Dextrose 5%-0.9% NaCl 1, 600 000 ml @ 50 mls/hr IV . Q20H [facility] Rx#:[id number] Piperacillin-Tazobactam 3 100 .375 gm In Sodium Chloride 0.9% 100 ml @ 200 mls/hr IVPB Q6H [facility] Rx#:[id number] Oral 0 Tube Feeding 600 Output: Urine 900 750 Other: Voiding Method Indwelling Catheter Indwelling Catheter # Bowel Movements 1 2 1 - Exam GENERAL DESCRIPTION: A middle-age male lying in bed in no distress RESPIRATORY SYSTEM: Unlabored breathing , decreased breath sounds at bases HEART: S1 S2 regular rate and rhythm , ABDOMEN: Soft , no tenderness EXTREMITIES: No edema feet - Labs CBC & Chem 7: 11/29/21 06:11 11/29/21 06:11 Labs: Abnormal Lab Results - Last 24 Hours (Table) 11/26/21 11/26/21 11/26/21 Range/Units 07:09 07:09 12:52 RBC 2.85 L (4.40-5.60) X 10*6/uL Hgb 7.6 L (13.0-17.0) g/dL Hct 24.6 L (39.6-50.0) % MCH 26.7 L (27.0-32.0) pg MCHC 30.9 L (32.0-37.0) g/dL RDW 20.8 H (11.5-14.5) % Plt Count 89 L (140-440) X 10*3/uL Plt Count Comment DECREASED A Absolute Nucleated RBC 0.17 H (0.00-0.00) X 10*3/uL Metamyelocytes % 1 H (0-0) % Myelocytes % 4 H (0-0) % Eosinophils # (Manual) 0.38 H (0.04-0.35) X 10*3/uL NRBC/100 WBC Diff 1.8 H (0.0-0.0) /100 WBCS Creatinine 0.4 L (0.6-1.5) mg/dL BUN/Creatinine Ratio 29.77 H (12.00-20.00) Ratio Glucose 111 H (70-110) mg/dL POC Glucose (mg/dL) 103 H (75-99) mg/dL Calcium 8.2 L (8.7-10.3) mg/dL Total Bilirubin <0.15 L (0.30-1.20) mg/dL AST 41 H (14-35) U/L Alkaline Phosphatase 184 H (41-126) U/L Total Protein 5.1 L (6.2-8.2) g/dL Albumin 2.1 L (3.8-4.9) g/dL Albumin/Globulin Ratio 0.70 L (1.60-3.17) g/dL 11/26/21 11/26/21 11/27/21 Range/Units 17:13 21:00 05:14 RBC (4.40-5.60) X 10*6/uL Hgb (13.0-17.0) g/dL Hct (39.6-50.0) % MCH (27.0-32.0) pg MCHC (32.0-37.0) g/dL RDW (11.5-14.5) % Plt Count (140-440) X 10*3/uL Plt Count Comment Absolute Nucleated RBC (0.00-0.00) X 10*3/uL Metamyelocytes % (0-0) % Myelocytes % (0-0) % Eosinophils # (Manual) (0.04-0.35) X 10*3/uL NRBC/100 WBC Diff (0.0-0.0) /100 WBCS Creatinine (0.6-1.5) mg/dL BUN/Creatinine Ratio (12.00-20.00) Ratio Glucose (70-110) mg/dL POC Glucose (mg/dL) 108 H 105 H 102 H (75-99) mg/dL Calcium (8.7-10.3) mg/dL Total Bilirubin (0.30-1.20) mg/dL AST (14-35) U/L Alkaline Phosphatase (41-126) U/L Total Protein (6.2-8.2) g/dL Albumin (3.8-4.9) g/dL Albumin/Globulin Ratio (1.60-3.17) g/dL Assessment and Plan (1) Pneumonia Current Visit: Yes Status: Acute Code(s): J18.9 - PNEUMONIA, UNSPECIFIED ORGANISM SNOMED Code(s): 910886481 Plan: Patient admitted to hospital with acute respiratory failure multifactorial and the patient concerning for possible aspiration pneumonia patient is clinically responding to Zosyn patient still have NG for feeding, once his feeding issue is resolved may be able to transition to oral antibiotic Time with Patient: Less than 30
--- NOTE | 2021-11-29 23:00 | P.PN ---
Subjective Progress Note Date: 11/28/21 Principal diagnosis: Aspiration pneumonia Patient is 36-year-old male with a past medical history significant for viral meningitis at a young age, developmental delay admitted to the hospital with respiratory distress and mental status changes has been diagnosed with aspiration pneumonia treated with the Zosyn. On today's evaluation that is 11/28/2021, the patient remains to be afebrile the patient and she has been discontinued, patient been tolerating his diet per the nursing staff no vomiting or diarrhea has been recorded patient himself was not able to provide any history Objective - Vital Signs Vital signs: Vital Signs Temp 98.8 F 11/28/21 20:07 Pulse 91 11/28/21 20:07 Resp 18 11/28/21 20:07 BP 98/71 11/28/21 20:07 Pulse Ox 92 L 11/28/21 20:07 Intake & Output 11/28/21 11/28/21 11/29/21 06:59 18:59 06:59 Intake Total 1480 Output Total 400 Balance -400 1480 Weight 54.3 kg 54.3 kg Intake: IV 800 Dextrose 5%-0.9% NaCl 1, 600 000 ml @ 50 mls/hr IV . Q20H [facility] Rx#:[id number] Valproate Sodium 375 mg 200 In Sodium Chloride 0.9% 100 ml @ 100 mls/hr IVPB Q6HR [facility] Rx#:[id number] Intake, IV Titration 200 Amount Piperacillin-Tazobactam 3 200 .375 gm In Sodium Chloride 0.9% 100 ml @ 200 mls/hr IVPB Q6H [facility] Rx#:[id number] Oral 480 Output: Urine 400 Other: Voiding Method Indwelling Catheter Indwelling Catheter Indwelling Catheter - Exam GENERAL DESCRIPTION: A middle-age male lying in bed in no distress RESPIRATORY SYSTEM: Unlabored breathing , decreased breath sounds at bases HEART: S1 S2 regular rate and rhythm , ABDOMEN: Soft , no tenderness EXTREMITIES: No edema feet - Labs CBC & Chem 7: 11/29/21 06:11 11/29/21 06:11 Labs: Abnormal Lab Results - Last 24 Hours (Table) 11/28/21 11/28/21 Range/Units 06:28 06:28 WBC 11.38 H (4.50-10.00) X 10*3/uL RBC 2.78 L (4.40-5.60) X 10*6/uL Hgb 7.4 L (13.0-17.0) g/dL Hct 24.6 L (39.6-50.0) % MCH 26.6 L (27.0-32.0) pg MCHC 30.1 L (32.0-37.0) g/dL RDW 20.7 H (11.5-14.5) % Absolute Nucleated RBC 0.25 H (0.00-0.00) X 10*3/uL Immature Gran # 0.42 H (0.00-0.04) X 10*3/uL Monocytes # 1.49 H (0.20-1.00) X 10*3/uL NRBC/100 WBC Diff 2.2 H (0.0-0.0) /100 WBCS Potassium 3.3 L (3.5-5.5) mmol/L Creatinine 0.5 L (0.6-1.5) mg/dL BUN/Creatinine Ratio 24.00 H (12.00-20.00) Ratio Glucose 65 L (70-110) mg/dL Calcium 8.0 L (8.7-10.3) mg/dL Total Bilirubin <0.15 L (0.30-1.20) mg/dL Alkaline Phosphatase 140 H (41-126) U/L Total Protein 5.1 L (6.2-8.2) g/dL Albumin 2.1 L (3.8-4.9) g/dL Albumin/Globulin Ratio 0.70 L (1.60-3.17) g/dL Assessment and Plan (1) Pneumonia Current Visit: Yes Status: Acute Code(s): J18.9 - PNEUMONIA, UNSPECIFIED ORGANISM SNOMED Code(s): 014854373 Plan: Patient admitted to hospital with acute respiratory failure multifactorial and t he patient concerning for possible aspiration pneumonia patient is clinically responding to Zosyn patient and she has been discontinued. The patient is tolerating a diet and antibiotic will be switched over to oral on discharge Time with Patient: Less than 30
--- NOTE | 2021-11-29 23:02 | P.PN ---
Subjective Progress Note Date: 11/29/21 Principal diagnosis: Aspiration pneumonia Patient is 36-year-old male with a past medical history significant for viral meningitis at a young age, developmental delay admitted to the hospital with respiratory distress and mental status changes has been diagnosed with aspiration pneumonia treated with the Zosyn. On today's evaluation that is 11/29/2021, the patient continues to be afebrile, the patient is breathing comfortably on room air, patient been tolerating his diet per the nursing staff no vomiting or diarrhea has been recorded patient himself was not able to provide any history Objective - Vital Signs Vital signs: Vital Signs Temp 98.3 F 11/29/21 12:16 Pulse 93 11/29/21 12:16 Resp 14 11/29/21 12:16 BP 113/62 11/29/21 12:16 Pulse Ox 94 L 11/29/21 07:52 Intake & Output 11/28/21 11/29/21 11/29/21 18:59 06:59 18:59 Intake Total 1480 700 Output Total 750 Balance 1480 -50 Weight 54.3 kg 53.9 kg Intake: IV 800 700 Dextrose 5%-0.9% NaCl 1, 600 600 000 ml @ 50 mls/hr IV . Q20H [facility] Rx#:[id number] Valproate Sodium 375 mg 200 100 In Sodium Chloride 0.9% 100 ml @ 100 mls/hr IVPB Q6HR [facility] Rx#:[id number] Intake, IV Titration 200 Amount Piperacillin-Tazobactam 3 200 .375 gm In Sodium Chloride 0.9% 100 ml @ 200 mls/hr IVPB Q6H [facility] Rx#:[id number] Oral 480 Output: Urine 750 Other: Voiding Method Indwelling Catheter Indwelling Catheter Indwelling Catheter - Exam GENERAL DESCRIPTION: A middle-age male lying in bed in no distress RESPIRATORY SYSTEM: Unlabored breathing , decreased breath sounds at bases HEART: S1 S2 regular rate and rhythm , ABDOMEN: Soft , no tenderness EXTREMITIES: No edema feet - Labs CBC & Chem 7: 11/29/21 06:11 11/29/21 06:11 Labs: Abnormal Lab Results - Last 24 Hours (Table) 11/28/21 11/29/21 11/29/21 Range/Units 06:28 06:11 06:11 RBC 2.62 L (4.40-5.60) X 10*6/uL Hgb 6.8 L* (13.0-17.0) g/dL Hct 23.0 L (39.6-50.0) % MCH 26.0 L (27.0-32.0) pg MCHC 29.6 L (32.0-37.0) g/dL RDW 20.6 H (11.5-14.5) % MPV 8.8 L (9.5-12.2) fL Absolute Nucleated RBC 0.32 H (0.00-0.00) X 10*3/uL Immature Gran # 0.21 H (0.00-0.04) X 10*3/uL Monocytes # 1.23 H (0.20-1.00) X 10*3/uL NRBC/100 WBC Diff 3.3 H (0.0-0.0) /100 WBCS Potassium 2.6 L* (3.5-5.5) mmol/L Creatinine 0.5 L (0.6-1.5) mg/dL Calcium 7.9 L (8.7-10.3) mg/dL Iron 59 L (65-175) ug/dL Total Bilirubin <0.15 L (0.30-1.20) mg/dL ALT 9 L (10-49) U/L Alkaline Phosphatase 131 H (41-126) U/L Total Protein 5.0 L (6.2-8.2) g/dL Albumin 2.0 L (3.8-4.9) g/dL Albumin/Globulin Ratio 0.67 L (1.60-3.17) g/dL Vitamin B12 >2000.0 H (200.0-944.0) pg/mL Assessment and Plan (1) Pneumonia Current Visit: Yes Status: Acute Code(s): J18.9 - PNEUMONIA, UNSPECIFIED ORGANISM SNOMED Code(s): 817698941 Plan: Patient admitted to hospital with acute respiratory failure multifactorial and the patient concerning for possible aspiration pneumonia patient is clinically responding to Zosyn patient and the patient NG has been discontinued. The patient is tolerating a diet and antibiotic will be switched over to oral Avelox 400 daily for 7 days on discharge, discussed with the nurse practitioner working on discharge Time with Patient: Less than 30
[2021-11-30 01:30] LABS: Glucose,Whole Blood 84 mg/dL (75-99)
[2021-11-30] MEDS: VALPROATE SODIUM IVPB SCH ×3 (02:21→13:31)
[2021-11-30] MEDS: SODIUM CHLORIDE 0.9% IVPB SCH ×3 (02:21→13:31)
[2021-11-30] MEDS: PIPERACILLIN-TAZOBACTAM 3.375 GM in SODIUM CHLORIDE 0.9% 100 ML IVPB SCH ×2 (04:01→11:18)
[2021-11-30 06:40] LABS: Glucose,Whole Blood 88 mg/dL (75-99)
[2021-11-30 07:40] LABS: Anisocytosis Moderate; HCT 26.7 % (39.0-53.0); HGB 8.2 gm/dL (13.0-17.5); Hypochromasia Moderate; MCH 26.8 pg (25.0-35.0); MCHC 30.7 g/dL (31.0-37.0); MCV 87.2 fL (80.0-100.0); Microcytosis Slight; Platelet Count 297 k/uL (150-450); Poikilocytosis Slight; RBC 3.06 m/uL (4.30-5.90); RDW 20.3 % (11.5-15.5)
[2021-11-30 08:25] LABS: Band Neutrophils % 1 %; Metamyelocytes % 3 %; Myelocytes % 1 %; Neutrophils % (M) 61 %; Nucleated Red Blood Cells 3 /100 WBC (0-0)
[2021-11-30 08:26] LABS: Basophils # (M) 0.08 k/uL (0-0.2); Eosinophils # (M) 0.08 k/uL (0-0.7); Lymphocytes # (M) 1.39 k/uL (1.0-4.8); Metamyelocytes # (M) 0.25 k/uL (0); Monocytes # (M) 1.39 k/uL (0-1.0); Myelocytes # (M) 0.08 k/uL (0); Total Cells Counted 200; WBC 8.2 k/uL (3.8-10.6)
[2021-11-30] MEDS: ENOXAPARIN 40 MG/0.4 ML SYRINGE SQ SCH (08:26)
[2021-11-30 08:27] LABS: Polychromasia Present
[2021-11-30] MEDS: TOPIRAMATE 25 MG TAB PO SCH (08:27)
[2021-11-30] MEDS: LORazepam 0.5 MG TAB PO SCH (08:27)
[2021-11-30] MEDS: risperiDONE 0.25 MG TAB PO SCH (08:27)
[2021-11-30] MEDS: PANTOPRAZOLE 40 MG/10 ML VIAL IVP SCH (08:27)
[2021-11-30 08:28] LABS: Toxic Granulation Present
[2021-11-30 08:30] LABS: ALT 10 U/L (4-49); AST 33 U/L (17-59); African American GFR (CKD) >90 (>60 ml/min/1.73 sqM); Albumin 2.2 g/dL (3.5-5.0); Albumin/Globulin Ratio 0.6; Alkaline Phosphatase 143 U/L (38-126); Anion Gap 4 mmol/L; Blood Urea Nitrogen 7 mg/dL (9-20); Calcium 7.8 mg/dL (8.4-10.2); Carbon Dioxide 25 mmol/L (22-30); Chloride 114 mmol/L (98-107); Globulin 3.4 g/dL; Glucose 89 mg/dL (74-99); Non-African American GFR(CKD) >90 (>60 ml/min/1.73 sqM); Potassium 3.6 mmol/L (3.5-5.1); Sodium 143 mmol/L (137-145); Total Bilirubin 0.4 mg/dL (0.2-1.3); Total Protein 5.6 g/dL (6.3-8.2)
[2021-11-30] MEDS ORDERED: SODIUM FERRIC GLUCONAT-SUCROSE 125 MG in SODIUM CHLORIDE 0.9% 100 ML IVPB SCH (09:00)
[2021-11-30 11:58] VITALS: BP 110/72; PULSE 74; TEMP 97.6
--- NOTE | 2021-11-30 11:59 | P.DS ---
Providers Date of admission: 11/18/21 02:55 Expected date of discharge: 11/30/21 Attending physician: Iveth Ramirez Consults: 11/18/21 02:55 Consult Physician Stat Consulting Provider: Bubba Wiggins Consult Reason/Comments: acute hypoxic resp failure, CAP Do you want consulting provider notified?: Yes 11/18/21 09:31 Consult Physician Routine Consulting Provider: Tresa Estes Consult Reason/Comments: abnormal EKG Do you want consulting provider notified?: Yes 11/26/21 08:35 Consult Physician Routine Consulting Provider: Jason Dumont Consult Reason/Comments: asp pneumonia Do you want consulting provider notified?: Yes Primary care physician: Iveth Ramirez [facility] Course: Discharge diagnosis Sepsis, as evidenced by severe hypothymia, tachypnea, and elevated lactic acid Lactic acidosis Severe hypothermia on presentation related to sepsis. 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 Hemoglobin 6.6unit of PRBCs have been ordered per critical care Loose stools will order stool for C. diff Hospital course Tolu Sánchez, is a 36-year-old male, well-known to my practice , with history of physical debility , mental debility , and seizure disorder , [facility] a [facility] ,who presented to [facility] with a chief complaint of mental status changes and worsening shortness of breath. He was evaluated in the emergency room vital examination on presentation revealed a temperature of 87 pulse 56 respiration 49 blood pressure 102/58 pulse ox 75% on 15 L nonrebreather mask Laboratory data revealed a white blood count of 5.7 hemoglobin 9.4 platelet count 76 sodium 148 potassium 4.1 chloride 37 BUN 38 creatinine 0.78 lactic acid 2.7 troponin 0.055 BNP 384 COVID-19 PCR was negative Chest x-ray done in the emergency room revealed the radiology there was evidence of pulmonary edema, and evidence of left lower lobe pneumonia, EKG revealed supraventricular bradycardia with nonspecific T-wave abnormality. Patient was admitted to ICU for further evaluation and treatment On 11/19/2021 patient was seen and examined in the ICU, his vital exam reveals a temperature of 97.6 pulse 89 respiration 43 blood pressure 100/57 pulse ox 99% on BiPAP with FiO2 of 80% he is poorly responsive he moves his extremity to stimuli he is nonverbal, laboratory data today reveals a white blood count of 18.0 hemoglobin 8.0 platelet count 54 sodium 149 potassium 3.9 chloride 112 CO2 32 BUN 18 creatinine 0.77 On 11/20/2021 patient remains in the intensive care unit on BiPAP. Patient hypothermic 94.1 Bear hugger blanket increased. Current vitals temp 94.1, heart rate 67 and respiratory rate 35, blood pressure 106/61 patient satting 94% on BiPAP. Patient remains on IV antibiotics per nursing staff attempts will be made to place NG tube and restart tube feedings On 11/21/2021 patient was seen and examined in the ICU, he is maintained on BiPAP FiO2 is 60% patient is drowsy but responds to stimuli. Vital exam reveals a temperature of 97.5 pulse 65 respiration 23 blood pressure 114/68 pulse ox is 98% on BiPAP with FiO2 of 60% white blood count 12.8 hemoglobin 7.3 platelet count 14 9 sodium 140 potassium 3.3 chloride 102 CO2 32 BUN 19 creatinine 0.6 chest x-ray reveals new complete whiteout of the left hemithorax. Patient is clinically slightly better, pulmonary critical care are following On 11/22/2021 patient remains in the intensive care unit. Patient has been taken off BiPAP currently on 6 L. Patient has been started on tube feedings. Remains on IV Zosyn. Patient does respond to stimuli. Hemoglobin 7.6. White blood cell 9.2. Chest x-ray completed showing improvement variation of left lung with residual left lower lobe infiltrate and or atelectasis with effusion is patchy right perihilar and right lower lobe infiltrate. On 11/23/2021 patient was seen and examined in the ICU he is alert nonverbal in no apparent distress, he is maintained on oxygen 4 L via nasal cannula vital exam reveals a temperature of 98.5 pulse 105 respiration 17 blood pressure 102/62 pulse ox 96% on 4 L nasal cannula, labs are still pending for today, patient does not seem to be in any pain or discomfort, mother is at the bedside and case was discussed in detail with her. CODE STATUS is no cord will continue with current management will follow closely On 11/24/2021 patient remains in the intensive care unit. Patient's oxygen has been increased to high flow 10 L. Per nursing staff patient has been having loose stools will order C. diff. Patient remains on IV Zosyn. 1 unit of PRBCs have been ordered per critical care due to hemoglobin being 6.6. No signs of bleeding per nursing staff. On 11/25/2021 patient was seen and examined in the ICU he is alert nonverbal in no apparent distress, he is maintained on oxygen 4 L via nasal cannula vital exam reveals a temperature of 98.5 pulse 105 respiration 17 blood pressure 102/62 pulse ox 96% on 4 L nasal cannula, patient does not seem to be in any pain or discomfort, mother is at the bedside and case was discussed in detail with her. CODE STATUS is no cord will continue with current management will follow closely On 11/26/2021 patient was seen and examined on the medical floor he was transferred out of ICU today. Currently patient is maintained on oxygen 4 L via nasal cannula, vital exam reveals a temperature of 98.6 pulse 100 respiration 28 pressure 112/61 pulse ox 96% on 4 L nasal cannula is white blood count is 9.0 hemoglobin 8.6 platelet count 47 BUN 15 creatinine 0.44 On 11/27/2021 patient was seen and examined on the medical floor he is alert nonverbal in no apparent distress he is maintained on oxygen 3 L via nasal cannula vital exam reveals a temperature of 99.5 pulse 106 respiration 20 blood pressure 107/56 pulse ox 95% on 3 L nasal cannula white blood count 9.4 hemoglobin 7.6 platelet count 89 he is followed by pulmonary critical care and is improving gradually he is still maintained on IV antibiotic Zosyn On 11/28/2021 patient was seen and examined on the medical floor he is alert nonverbal in no apparent distress he is maintained on oxygen 3 L via nasal cannula vital exam reveals a temperature of 99.5 pulse 106 respiration 20 blood pressure 107/56 pulse ox 95% on 3 L nasal cannula white blood count 9.4 hemoglobin 7.6 platelet count 89 he is followed by pulmonary critical care and is improving gradually he is still maintained on IV antibiotic Zosyn On 11/29/2021 patient is resting comfortably in bed. Diet reformations have been made per speech therapy. Patient to have potassium replaced prior to discharge. Patient to have IV iron prior to discharge. Patient planning to be DC'd back to facility. Current vitals temp 97.9, pulse rate 85, respiratory rate 16, blood pressure 122/70. Discussed case with infectious disease service is patient to be discharged on Avelox On 11/30/2021 patient is resting comfortably in bed patient is nonverbal which is his baseline. Hemoglobin improved to 8.2 potassium 3.6. [facility] to [facility]. Diet recommendations and discharge instructions. These were per speech services. Patient Condition at Discharge: Stable Plan - Discharge Summary New Discharge Prescriptions: New Ferrous Sulfate [Feosol] 325 mg PO DAILY 30 Days #30 tab Moxifloxacin HCl [Avelox] 400 mg PO DAILY 7 Days #7 tablet Ipratropium-Albuterol Nebulize [Duoneb 0.5 mg-3 mg/3 ml Soln] 3 ml INHALATION RT-Q4H PRN ml PRN Reason: Shortness Of Breath Or Wheezing Continue Divalproex Sprinkle [Depakote Sprinkle] 750 mg PO Q12H Cholecalciferol [Vitamin D3 (25 Mcg = 1000 Iu)] 25 mcg PO DAILY Topiramate [Topamax] 30 mg PO BID LORazepam [Ativan] 1.5 mg PO TID risperiDONE [RisperDAL] 0.25 mg PO DAILY Acetaminophen Tab [Tylenol] 500 mg PO Q4-6H PRN PRN Reason: Fever And/ Or Pain guaiFENesin-DM 100-10MG/5ML [Robitussin DM] 10 ml PO Q4H PRN PRN Reason: Cough diphenhydrAMINE [Benadryl] 25 mg PO Q6H PRN PRN Reason: Allergy Symptoms diphenhydrAMINE ELIXIR [Benadryl Elixir] 25 mg PO Q6H PRN PRN Reason: Allergy Symptoms Magnesium Hydroxide [Milk of Magnesia] 2,400 mg PO DAILY PRN PRN Reason: Constipation Ibuprofen [Motrin Ib] 200 mg PO Q6H PRN PRN Reason: Fever And/ Or Pain Discharge Medication List Cholecalciferol [Vitamin D3 (25 Mcg = 1000 Iu)] 25 mcg PO DAILY 12/23/16 [History] Divalproex Sprinkle [Depakote Sprinkle] 750 mg PO Q12H 12/23/16 [History] LORazepam [Ativan] 1.5 mg PO TID 12/23/16 [History] Topiramate [Topamax] 30 mg PO BID 12/23/16 [History] Acetaminophen Tab [Tylenol] 500 mg PO Q4-6H PRN 11/18/21 [History] Ibuprofen [Motrin Ib] 200 mg PO Q6H PRN 11/18/21 [History] Magnesium Hydroxide [Milk of Magnesia] 2,400 mg PO DAILY PRN 11/18/21 [History] diphenhydrAMINE ELIXIR [Benadryl Elixir] 25 mg PO Q6H PRN 11/18/21 [History] diphenhydrAMINE [Benadryl] 25 mg PO Q6H PRN 11/18/21 [History] guaiFENesin-DM 100-10MG/5ML [Robitussin DM] 10 ml PO Q4H PRN 11/18/21 [History] risperiDONE [RisperDAL] 0.25 mg PO DAILY 11/18/21 [History] Ferrous Sulfate [Feosol] 325 mg PO DAILY 30 Days #30 tab 11/29/21 [Rx] Ipratropium-Albuterol Nebulize [Duoneb 0.5 mg-3 mg/3 ml Soln] 3 ml INHALATION RT-Q4H PRN ml 11/29/21 [Rx] Moxifloxacin HCl [Avelox] 400 mg PO DAILY 7 Days #7 tablet 11/29/21 [Rx] Follow up Appointment(s)/Referral(s): Iveth Ramirez MD [Primary Care Provider] - 1-2 days Activity/Diet/Wound Care/Special Instructions: Diet dysphagia level I pured diet Lamoni thick liquids 1:1 supervision Aspiration precautions Discharge Disposition: HOME WITH HOME HEALTH SERVICES
--- NOTE | 2021-11-30 16:21 | P.PN ---
Subjective Progress Note Date: 11/30/21 Principal diagnosis: Aspiration pneumonia Patient is 36-year-old male with a past medical history significant for viral meningitis at a young age, developmental delay admitted to the hospital with respiratory distress and mental status changes has been diagnosed with aspiration pneumonia treated with the Zosyn. On today's evaluation that is , the patient remains to be afebrile, the patient is breathing comfortably on room air, patient been tolerating his d iet per the nursing staff no vomiting or diarrhea has been recorded , currently waiting for discharge Objective - Vital Signs Vital signs: Vital Signs Temp 97.6 F 11/30/21 11:07 Pulse 74 11/30/21 11:07 Resp 20 11/30/21 11:07 BP 110/72 11/30/21 11:07 Pulse Ox 94 L 11/30/21 11:07 Intake & Output 11/29/21 11/30/21 11/30/21 18:59 06:59 18:59 Intake Total 1100 Output Total 550 600 700 Balance -550 500 -700 Weight 53.9 kg 53.9 kg Intake: IV 900 Dextrose 5%-0.9% NaCl 1, 600 000 ml @ 50 mls/hr IV . Q20H [facility] Rx#:[id number] Sodium Chloride 0.9% 1, 100 000 ml @ 20 mls/hr IV . Q24H [facility] Rx#:[id number] Valproate Sodium 375 mg 200 In Sodium Chloride 0.9% 100 ml @ 100 mls/hr IVPB Q6HR [facility] Rx#:[id number] Intake, IV Titration 200 Amount Piperacillin-Tazobactam 3 200 .375 gm In Sodium Chloride 0.9% 100 ml @ 200 mls/hr IVPB Q6H [facility] Rx#:[id number] Output: Urine 550 600 700 Uretheral (Dick) 200 600 Other: Voiding Method Indwelling Catheter Indwelling Catheter Indwelling Catheter # Bowel Movements 1 1 - Exam GENERAL DESCRIPTION: A middle-age male lying in bed in no distress RESPIRATORY SYSTEM: Unlabored breathing , decreased breath sounds at bases HEART: S1 S2 regular rate and rhythm , ABDOMEN: Soft , no tenderness EXTREMITIES: No edema feet - Labs CBC & Chem 7: 11/30/21 06:53 11/30/21 06:53 Labs: Abnormal Lab Results - Last 24 Hours (Table) 11/30/21 11/30/21 Range/Units 06:53 06:53 RBC 3.06 L (4.30-5.90) m/uL Hgb 8.2 L (13.0-17.5) gm/dL Hct 26.7 L (39.0-53.0) % MCHC 30.7 L (31.0-37.0) g/dL RDW 20.3 H (11.5-15.5) % Monocytes # (Manual) 1.39 H (0-1.0) k/uL Metamyelocytes # (Man) 0.25 H (0) k/uL Myelocytes # (Manual) 0.08 H (0) k/uL Nucleated RBCs 3 H (0-0) /100 WBC Chloride 114 H (98-107) mmol/L BUN 7 L (9-20) mg/dL Creatinine 0.46 L (0.66-1.25) mg/dL Calcium 7.8 L (8.4-10.2) mg/dL Alkaline Phosphatase 143 H (38-126) U/L Total Protein 5.6 L (6.3-8.2) g/dL Albumin 2.2 L (3.5-5.0) g/dL Assessment and Plan (1) Pneumonia Current Visit: Yes Status: Acute Code(s): J18.9 - PNEUMONIA, UNSPECIFIED ORGANISM SNOMED Code(s): 143604883 Plan: Patient admitted to hospital with acute respiratory failure multifactorial and the patient concerning for possible aspiration pneumonia patient is clinically responding to Zosyn patient and the patient NG has been discontinued. The patient apparently is tolerating his diet and plan is to finish therapy with oral Avelox 400 daily for 7 days on discharge Time with Patient: Less than 30
== END 2021-11-30 17:30 | disposition home health service (06) | DRG 871 ==
LOC: EC 23:49 → 2SICU 11-18 02:55 → 5NMEDONC 11-25 15:09
PROVIDERS: ADMIT Internal Medicine; ATTEND Internal Medicine
PROC: 5A09557 Assistance with Respiratory Ventilation, Greater than 96 Consecutive Hours, Continuous Positive Airway Pressure (ICD-10-PCS; 2021-11-18)
PROC: 3E0G76Z Introduction of Nutritional Substance into Upper GI, Via Natural or Artificial Opening (ICD-10-PCS; principal; 2021-11-20)
PROC: 0D9670Z Drainage of Stomach with Drainage Device, Via Natural or Artificial Opening (ICD-10-PCS; principal; 2021-11-20)
PROC: 5A0935A Assistance with Respiratory Ventilation, Less than 24 Consecutive Hours, High Flow/Velocity Cannula (ICD-10-PCS; 2021-11-22)
PROC: 30233N1 Transfusion of Nonautologous Red Blood Cells into Peripheral Vein, Percutaneous Approach (ICD-10-PCS; 2021-11-22)
DX: A41.9 Sepsis, unspecified organism (principal); J69.0 Pneumonitis due to inhalation of food and vomit; J96.01 Acute respiratory failure with hypoxia; E87.2 Acidosis; I31.3 Pericardial effusion (noninflammatory); J81.1 Chronic pulmonary edema; J90 Pleural effusion, not elsewhere classified; J98.11 Atelectasis; D64.9 Anemia, unspecified; D69.59 Other secondary thrombocytopenia; Z86.61 Personal history of infections of the central nervous system; M62.462 Contracture of muscle, left lower leg; B94.8 Sequelae of other specified infectious and parasitic diseases; Z66 Do not resuscitate; R00.1 Bradycardia, unspecified; R62.59 Other lack of expected normal physiological development in childhood; R53.81 Other malaise; M62.461 Contracture of muscle, right lower leg; L89.892 Pressure ulcer of other site, stage 2; R77.8 Other specified abnormalities of plasma proteins; I08.1 Rheumatic disorders of both mitral and tricuspid valves; E87.6 Hypokalemia; G40.909 Epilepsy, unspecified, not intractable, without status epilepticus; R68.0 Hypothermia, not associated with low environmental temperature; H54.7 Unspecified visual loss; Z20.822 Contact with and (suspected) exposure to COVID-19; Z79.899 Other long term (current) drug therapy; Z87.01 Personal history of pneumonia (recurrent); Z99.3 Dependence on wheelchair; Z82.61 Family history of arthritis
CPT/HCPCS: 36415; 36600; 71045; 80053; 80164; 80201; 81003; 82140; 82272; 82607; 82746; 82805; 83540; 83550; 83605; 83735; 83880; 84132; 84439; 84443; 84484; 85025; 85027; 85610; 85730; 86850; 86900; 86901; 86920; 87040; 87324; 87635; 93005; 93306; 94640; 94660; 94760; 96365; 96366; 96375; 96376; 99285

== ENCOUNTER 2022-02-27 07:57 | Inpatient (IN) | payer BC, MEDICARE, OTHER ==
--- NOTE | 2022-02-27 08:33 | ED ---
SOB HPI - General Stated Complaint: SOB Time Seen by Provider: 02/27/22 08:05 - History of Present Illness Initial Comments: 36-year-old male with past medical history of developmental delay, nonverbal, seizure disorder presents to the emergency department from an [facility] home. Father made the staff call EMS as he was having increased shortness of breath. Patient was hospitalized in December of this year for similar and found to have pneumonia. There are 2 out of the 6 members in the facility that are recently positive for "with this past week and that is their concern. Patient was found to be 86% by EMS and was given an albuterol treatment. Patient saturates 88% without oxygen in the emergency room. He normally does not wear oxygen. Patient has a nonproductive cough. Denies any complaints of pain. HPI is limited - Related Data Home Medications Medication Instructions Recorded Confirmed Divalproex Sprinkle [Depakote 750 mg PO BID@0600,1630 12/23/16 02/27/22 Sprinkle] LORazepam [Ativan] 1.5 mg PO TID@0600,1000,1630 12/23/16 02/27/22 Topiramate [Topamax] 30 mg PO BID@0600,1630 12/23/16 02/27/22 Acetaminophen Tab [Tylenol] 1,000 mg PO Q6H PRN 11/18/21 02/27/22 Ibuprofen [Motrin Ib] 200 mg PO Q6H PRN 11/18/21 02/27/22 Magnesium Hydroxide [Milk of 2,400 mg PO DAILY PRN 11/18/21 02/27/22 Magnesia] diphenhydrAMINE ELIXIR [Benadryl 25 mg PO Q6H PRN 11/18/21 02/27/22 Elixir] diphenhydrAMINE [Benadryl] 25 mg PO DIRECTED PRN 11/18/21 02/27/22 guaiFENesin-DM 100-10MG/5ML 10 ml PO Q4H PRN 11/18/21 02/27/22 [Robitussin DM] risperiDONE [RisperDAL] 0.25 mg PO DAILY@0600 11/18/21 02/27/22 Cholecalciferol [Vitamin D3 (25 25 mcg PO DAILY@0602/27/22 02/27/22 Mcg = 1000 Iu)] Ferrous Sulfate [Feosol] 325 mg PO DAILY@1630 02/27/22 02/27/22 Allergies Allergy/AdvReac Type Severity Reaction Status Date / Time No Known Allergies Allergy Verified 02/27/22 08:52 Review of Systems ROS Statement: Those systems with pertinent positive or pertinent negative responses have been documented in the HPI. ROS Other: All systems not noted in ROS Statement are negative. 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 History of Any Multi-Drug Resistant Organisms: None Reported Past Surgical History: No Surgical Hx Reported Additional Past Anesthesia/Blood Transfusion Reaction / Comment(s): Pt has never had surgery. Past Psychological History: No Psychological Hx Reported Smoking Status: Never smoker Past Alcohol Use History: None Reported Past Drug Use History: None Reported - Past Family History Mother Family Medical History: No Reported History Father Additional Family Medical History / Comment(s): Father has some joint problems and has had bilateral hip and knee replacements.spondolytis General Exam Limitations: physical limitation General appearance: lethargic Head exam: Present: atraumatic Eye exam: Present: normal appearance, PERRL, EOMI. Absent: scleral icterus, conjunctival injection, periorbital swelling ENT exam: Present: mucous membranes dry Neck exam: Present: normal inspection. Absent: tenderness, meningismus, lymphadenopathy Respiratory exam: Present: respiratory distress, accessory muscle use, decreased breath sounds (on left) Cardiovascular Exam: Present: normal rhythm, tachycardia GI/Abdominal exam: Present: soft, normal bowel sounds. Absent: distended, tenderness, guarding, rebound, rigid Extremities exam: Present: other (upper extremity contractures, muscle atrophy lower extremites) Skin exam: Present: warm, dry, intact, normal color. Absent: rash Course Vital Signs 02/27/22 02/27/22 02/27/22 08:36 10:14 10:24 Temperature 97.3 F L Pulse Rate 101 H 98 101 H Respiratory 22 Rate Blood Pressure 115/68 O2 Sat by Pulse 98 Oximetry 02/27/22 02/27/22 02/27/22 10:28 11:38 12:34 Temperature Pulse Rate 100 95 88 Respiratory 20 18 18 Rate Blood Pressure 103/33 99/61 91/55 O2 Sat by Pulse 96 97 97 Oximetry 02/27/22 02/27/22 02/27/22 14:02 16:21 17:00 Temperature 97.7 F Pulse Rate 87 81 99 Respiratory 16 16 18 Rate Blood Pressure 89/40 90/40 91/44 O2 Sat by Pulse 98 99 97 Oximetry 02/27/22 02/27/22 02/27/22 18:01 19:02 19:57 Temperature 98.8 F Pulse Rate 110 H 106 H 110 H Respiratory 18 18 18 Rate Blood Pressure 115/54 99/59 99/59 O2 Sat by Pulse 98 98 99 Oximetry 02/27/22 22:33 Temperature Pulse Rate 98 Respiratory 18 Rate Blood Pressure 119/73 O2 Sat by Pulse 100 Oximetry Medical Decision Making - Medical Decision Making Upon arrival patient is placed into room 5. A thorough history and physical exam is performed. He is placed on a nonrebreather because of his breathing habits. IV is established and laboratory studies are conducted and reviewed. Chest x-rays performed which demonstrates a left-sided opacification. Patient is started on azithromycin and Rocephin. Will be admitted to Dr. Ramirez who agreed to admit the patient. Pulm she will be placed on consult - Lab Data Result diagrams: 02/28/22 08:58 02/28/22 08:58 Lab Results 02/27/22 02/27/22 02/27/22 Range/Units 08:31 08:31 08:31 WBC 5.2 (3.8-10.6) k/uL RBC 3.90 L (4.30-5.90) m/uL Hgb 11.2 L (13.0-17.5) gm/dL Hct 34.9 L (39.0-53.0) % MCV 89.5 (80.0-100.0) fL MCH 28.7 (25.0-35.0) pg MCHC 32.1 (31.0-37.0) g/dL RDW 19.8 H (11.5-15.5) % Plt Count 205 (150-450) k/uL MPV 7.9 Neutrophils % (Manual) 43 % Band Neuts % (Manual) 7 % Lymphocytes % (Manual) 32 % Monocytes % (Manual) 16 % Metamyelocytes % 2 % Myelocytes % 2 % Neutrophils # (Manual) 2.60 (1.3-7.7) k/uL Lymphocytes # (Manual) 1.66 (1.0-4.8) k/uL Monocytes # (Manual) 0.83 (0-1.0) k/uL Metamyelocytes # (Man) 0.10 H (0) k/uL Myelocytes # (Manual) 0.10 H (0) k/uL Nucleated RBCs 3 H (0-0) /100 WBC Manual Slide Review Performed Toxic Granulation Present Polychromasia Present Hypochromasia Slight Anisocytosis Slight PT 10.5 (9.0-12.0) sec INR 1.0 (<1.2) APTT 26.0 (22.0-30.0) sec Sodium 139 (137-145) mmol/L Potassium 3.2 L (3.5-5.1) mmol/L Chloride 100 (98-107) mmol/L Carbon Dioxide 26 (22-30) mmol/L Anion Gap 13 mmol/L BUN 20 (9-20) mg/dL Creatinine 0.48 L (0.66-1.25) mg/dL Est GFR (CKD-EPI)AfAm >90 (>60 ml/min/1.73 sqM) Est GFR (CKD-EPI)NonAf >90 (>60 ml/min/1.73 sqM) Glucose 129 H (74-99) mg/dL Plasma Lactic Acid Arian (0.7-2.0) mmol/L Calcium 9.3 (8.4-10.2) mg/dL Total Bilirubin 0.2 (0.2-1.3) mg/dL AST 28 (17-59) U/L ALT 30 (4-49) U/L Alkaline Phosphatase 115 (38-126) U/L Troponin I (0.000-0.034) ng/mL NT-Pro-B Natriuret Pep pg/mL Total Protein 7.7 (6.3-8.2) g/dL Albumin 3.5 (3.5-5.0) g/dL Valproic Acid 118.9 ug/mL Coronavirus (PCR) (Not Detectd) Influenza Type A RNA (Not Detectd) Influenza Type B (PCR) (Not Detectd) 02/27/22 02/27/22 02/27/22 Range/Units 08:31 08:31 08:31 WBC (3.8-10.6) k/uL RBC (4.30-5.90) m/uL Hgb (13.0-17.5) gm/dL Hct (39.0-53.0) % MCV (80.0-100.0) fL MCH (25.0-35.0) pg MCHC (31.0-37.0) g/dL RDW (11.5-15.5) % Plt Count (150-450) k/uL MPV Neutrophils % (Manual) % Band Neuts % (Manual) % Lymphocytes % (Manual) % Monocytes % (Manual) % Metamyelocytes % % Myelocytes % % Neutrophils # (Manual) (1.3-7.7) k/uL Lymphocytes # (Manual) (1.0-4.8) k/uL Monocytes # (Manual) (0-1.0) k/uL Metamyelocytes # (Man) (0) k/uL Myelocytes # (Manual) (0) k/uL Nucleated RBCs (0-0) /100 WBC Manual Slide Review Toxic Granulation Polychromasia Hypochromasia Anisocytosis PT (9.0-12.0) sec INR (<1.2) APTT (22.0-30.0) sec Sodium (137-145) mmol/L Potassium (3.5-5.1) mmol/L Chloride (98-107) mmol/L Carbon Dioxide (22-30) mmol/L Anion Gap mmol/L BUN (9-20) mg/dL Creatinine (0.66-1.25) mg/dL Est GFR (CKD-EPI)AfAm (>60 ml/min/1.73 sqM) Est GFR (CKD-EPI)NonAf (>60 ml/min/1.73 sqM) Glucose (74-99) mg/dL Plasma Lactic Acid Arian 1.0 (0.7-2.0) mmol/L Calcium (8.4-10.2) mg/dL Total Bilirubin (0.2-1.3) mg/dL AST (17-59) U/L ALT (4-49) U/L Alkaline Phosphatase (38-126) U/L Troponin I <0.012 (0.000-0.034) ng/mL NT-Pro-B Natriuret Pep 143 pg/mL Total Protein (6.3-8.2) g/dL Albumin (3.5-5.0) g/dL Valproic Acid ug/mL Coronavirus (PCR) (Not Detectd) Influenza Type A RNA (Not Detectd) Influenza Type B (PCR) (Not Detectd) 02/27/22 02/27/22 Range/Units 08:31 08:31 WBC (3.8-10.6) k/uL RBC (4.30-5.90) m/uL Hgb (13.0-17.5) gm/dL Hct (39.0-53.0) % MCV (80.0-100.0) fL MCH (25.0-35.0) pg MCHC (31.0-37.0) g/dL RDW (11.5-15.5) % Plt Count (150-450) k/uL MPV Neutrophils % (Manual) % Band Neuts % (Manual) % Lymphocytes % (Manual) % Monocytes % (Manual) % Metamyelocytes % % Myelocytes % % Neutrophils # (Manual) (1.3-7.7) k/uL Lymphocytes # (Manual) (1.0-4.8) k/uL Monocytes # (Manual) (0-1.0) k/uL Metamyelocytes # (Man) (0) k/uL Myelocytes # (Manual) (0) k/uL Nucleated RBCs (0-0) /100 WBC Manual Slide Review Toxic Granulation Polychromasia Hypochromasia Anisocytosis PT (9.0-12.0) sec INR (<1.2) APTT (22.0-30.0) sec Sodium (137-145) mmol/L Potassium (3.5-5.1) mmol/L Chloride (98-107) mmol/L Carbon Dioxide (22-30) mmol/L Anion Gap mmol/L BUN (9-20) mg/dL Creatinine (0.66-1.25) mg/dL Est GFR (CKD-EPI)AfAm (>60 ml/min/1.73 sqM) Est GFR (CKD-EPI)NonAf (>60 ml/min/1.73 sqM) Glucose (74-99) mg/dL Plasma Lactic Acid Arian (0.7-2.0) mmol/L Calcium (8.4-10.2) mg/dL Total Bilirubin (0.2-1.3) mg/dL AST (17-59) U/L ALT (4-49) U/L Alkaline Phosphatase (38-126) U/L Troponin I (0.000-0.034) ng/mL NT-Pro-B Natriuret Pep pg/mL Total Protein (6.3-8.2) g/dL Albumin (3.5-5.0) g/dL Valproic Acid ug/mL Coronavirus (PCR) Not Detected (Not Detectd) Influenza Type A RNA Not Detected (Not Detectd) Influenza Type B (PCR) Not Detected (Not Detectd) - EKG Data EKG Comments: EKG demonstrates sinus tachycardia with a rate of 105. AK interval 141. QRS 97. QTC of 310. No acute ST segment elevations or depressions. Disposition Clinical Impression: Pneumonia, Acute respiratory failure Disposition: ADMITTED IP TO THIS HOSP Condition: Serious Is patient prescribed a controlled substance at d/c from ED?: No Decision to Admit Reason: Admit from EC Decision Date: 02/27/22 Decision Time: 09:54
[2022-02-27 08:54] LABS: Anisocytosis Slight; HCT 34.9 % (39.0-53.0); HGB 11.2 gm/dL (13.0-17.5); Hypochromasia Slight; MCH 28.7 pg (25.0-35.0); MCHC 32.1 g/dL (31.0-37.0); MCV 89.5 fL (80.0-100.0); Mean Platelet Volume 7.9; Platelet Count 205 k/uL (150-450); RDW 19.8 % (11.5-15.5)
[2022-02-27 09:02] LABS: Prothrombin Time 10.5 sec (9.0-12.0)
[2022-02-27] MEDS: SODIUM CHLORIDE 0.9% 1,000 ML IV SCH ×2 (09:04→17:23)
--- NOTE | 2022-02-27 09:13 | XR ---
EXAMINATION TYPE: XR chest 1V portable DATE OF EXAM: 02/27/2022 COMPARISON: 11/24/2021 INDICATION: Short of breath TECHNIQUE: Single frontal view of the chest is obtained. FINDINGS: The heart size is enlarged. The pulmonary vasculature is normal. There is near-complete opacification to the left lung. A few air bronchograms are evident. Correlate for atelectasis or pneumonia. Follow-up is recommended. IMPRESSION: 1. Large infiltrate and opacification with air bronchograms is within the left lung. Correlate for pn eumonia. This should be followed to clearing.
[2022-02-27] MEDS ORDERED: AZITHROMYCIN 500 MG in SODIUM CHLORIDE 0.9% 250 ML IVPB STA (09:26)
[2022-02-27] MEDS ORDERED: cefTRIAXone IN SWFI 1,000 MG/10 ML SYRINGE IVP STA (09:26)
[2022-02-27 09:31] LABS: ALT 30 U/L (4-49); AST 28 U/L (17-59); African American GFR (CKD) >90 (>60 ml/min/1.73 sqM); Albumin 3.5 g/dL (3.5-5.0); Alkaline Phosphatase 115 U/L (38-126); Anion Gap 13 mmol/L; Band Neutrophils % 7 %; Blood Urea Nitrogen 20 mg/dL (9-20); Calcium 9.3 mg/dL (8.4-10.2); Carbon Dioxide 26 mmol/L (22-30); Chloride 100 mmol/L (98-107); Glucose 129 mg/dL (74-99); Lymphocytes # (M) 1.66 k/uL (1.0-4.8); Metamyelocytes % 2 %; Monocytes # (M) 0.83 k/uL (0-1.0); Myelocytes % 2 %; Neutrophils % (M) 43 %; Non-African American GFR(CKD) >90 (>60 ml/min/1.73 sqM); Nucleated Red Blood Cells 3 /100 WBC (0-0); Potassium 3.2 mmol/L (3.5-5.1); Sodium 139 mmol/L (137-145); Total Bilirubin 0.2 mg/dL (0.2-1.3); Total Cells Counted 200; Total Protein 7.7 g/dL (6.3-8.2); WBC 5.2 k/uL (3.8-10.6)
[2022-02-27 09:32] LABS: Polychromasia Present; Toxic Granulation Present
[2022-02-27 09:47] LABS: Valproic Acid (Depakene) 118.9 ug/mL
[2022-02-27] MEDS ORDERED: IPRATROPIUM-ALBUTEROL 3 ML NEB INHALATION STA (09:52)
[2022-02-27] MEDS ORDERED: ACETAMINOPHEN TAB 325 MG TAB PO PRN (09:55)
[2022-02-27] MEDS ORDERED: NALOXONE 0.4 MG/ML 1 ML VIAL IV PRN (09:55)
--- NOTE | 2022-02-27 16:08 | P.CNPUL ---
History of Present Illness Consult date: 02/27/22 Reason for consult: dyspnea History of present illness: 36-year-old patient was coming into the hospital because of a extensive left lung pneumonia. The patient was noted to be more short of breath at [facility] home and hypoxic and for that reason he was brought into the hospital. He has had previous history of aspiration pneumonia as the patient has significant developmental delay and he has been aspirating food according to the family. During his last admission back in a November 2021, the patient was being considered for PEG tube insertion and the patient did not have the procedure done. During this time, the patient was found to be hypoxic with a pulse of 86% and he normally does not wear any oxygen. It is nonproductive cough. He was not looking toxic and he was not looking to have a labored breathing at time of admission. 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 The patient continues to live in a snf. Note that a few members of the snf were positive for COVID 19. The patient tested negative. The patient's [facility] x-ray shows scoliosis and extensive consolidation of the left lung. The right lung is relatively preserved. The patient during his last admission was kept in ICU and was supported briefly with the BiPAP and ultimately improved in the left lung pneumonia cleared. Cultures at that time were all negative. Currently, he is in the emergency department. The patient was given Rocephin and Zithromax and ultimately switched antibiotics to Zosyn and vancomycin. The blood work shows a white cell count of 5.2, R a normal, platelet count is normal at 205, the liver function tests are normal, there for an albumin is at 3.5 with a protein of 7.7. Troponins are negative, BNP level is at 143. Influenza screen was also negative. The patient is currently on 100% on a beta facemasks. Received a total of 2 L of IV fluid and currently receiving normal saline at rate of 130s is an hour. 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 History of Any Multi-Drug Resistant Organisms: None Reported Past Surgical History: No Surgical Hx Reported Additional Past Anesthesia/Blood Transfusion Reaction / Comment(s): Pt has never had surgery. Past Psychological History: No Psychological Hx Reported Smoking Status: Never smoker Past Alcohol Use History: None Reported Past Drug Use History: None Reported - Past Family History Mother Family Medical History: No Reported History Father Additional Family Medical History / Comment(s): Father has some joint problems and has had bilateral hip and knee replacements.spondolytis Medications and Allergies Home Medications Medication Instructions Recorded Confirmed Type Divalproex Sprinkle [Depakote 750 mg PO BID@0600,1630 12/23/16 02/27/22 History Sprinkle] LORazepam [Ativan] 1.5 mg PO TID@0600,1000,162912/23/16 02/27/22 History Topiramate [Topamax] 30 mg PO BID@0600,1630 12/23/16 02/27/22 History Acetaminophen Tab [Tylenol] 1,000 mg PO Q6H PRN 11/18/21 02/27/22 History Ibuprofen [Motrin Ib] 200 mg PO Q6H PRN 11/18/21 02/27/22 History Magnesium Hydroxide [Milk of 2,400 mg PO DAILY PRN 11/18/21 02/27/22 History Magnesia] diphenhydrAMINE ELIXIR [Benadryl 25 mg PO Q6H PRN 11/18/21 02/27/22 History Elixir] diphenhydrAMINE [Benadryl] 25 mg PO DIRECTED PRN 11/18/21 02/27/22 History guaiFENesin-DM 100-10MG/5ML 10 ml PO Q4H PRN 11/18/21 02/27/22 History [Robitussin DM] risperiDONE [RisperDAL] 0.25 mg PO DAILY@59911/18/21 02/27/22 History Cholecalciferol [Vitamin D3 (25 25 mcg PO DAILY@0602/27/22 02/27/22 History Mcg = 1000 Iu)] Ferrous Sulfate [Feosol] 325 mg PO DAILY@162902/27/22 02/27/22 History Allergies Allergy/AdvReac Type Severity Reaction Status Date / Time No Known Allergies Allergy Verified 02/27/22 08:52 Physical Exam Vitals: Vital Signs Temp Pulse Resp BP Pulse Ox 02/27/22 14:02 87 16 89/40 98 02/27/22 12:34 88 18 91/55 97 02/27/22 11:38 95 18 99/61 97 02/27/22 10:28 100 20 103/33 96 02/27/22 10:24 101 H 02/27/22 10:14 98 02/27/22 08:36 97.3 F L 101 H 22 115/68 98 Intake and Output 02/27/22 02/27/22 02/27/22 06:59 14:59 22:59 Other: Weight 47.627 kg GENERAL EXAM: 36-year-old white male, with developmental delay, small statured, appears younger than stated age, in minimal degree of Lasix to the status. The patient is nonverbal. The patient is on 100% on a beta facemasks. Does not look to be toxic at this point in time. HEAD: Normocephalic/atraumatic. EYES: Normal reaction of pupils, equal size. Conjunctiva pink, sclera white. NOSE: Clear with pink turbinates. THROAT: No erythema or exudates. NECK: No masses, no JVD, no thyroid enlargement, no adenopathy. CHEST: No chest wall deformity. Symmetrical expansion. LUNGS: Equal air entry with no crackles, wheeze, rhonchi or dullness. Diminished breath on the left compared to the right along with some bronchial breath sounds and crackles in the left lung base. CVS: Regular rate and rhythm, normal S1 and S2, no gallops, no murmurs, no rubs ABDOMEN: Soft, nontender. No hepatosplenomegaly, normal bowel sounds, no guarding or rigidity. EXTREMITIES: No clubbing, no edema, no cyanosis, 2+ pulses and upper and lower extremities. MUSCULOSKELETAL: Muscle strength and tone normal. SPINE: No scoliosis or deformity SKIN: No rashes CENTRAL NERVOUS SYSTEM: Poorly responsive, tachypneic, and respiratory distress. No focal deficits, tone is normal in all 4 extremities. Results - Laboratory Findings CBC and BMP: 02/27/22 08:31 02/27/22 08:31 PT/INR, D-dimer PT 10.5 sec (9.0-12.0) 02/27/22 08:31 INR 1.0 (<1.2) 02/27/22 08:31 Abnormal lab findings: Abnormal Labs 02/27/22 02/27/22 08:31 08:31 RBC 3.90 L Hgb 11.2 L Hct 34.9 L RDW 19.8 H Metamyelocytes # (Man) 0.10 H Myelocytes # (Manual) 0.10 H Nucleated RBCs 3 H Potassium 3.2 L Creatinine 0.48 L Glucose 129 H - Diagnostic Findings Chest x-ray: image reviewed Assessment and Plan Plan: . Acute hypoxic respiratory failure related to acute pneumonia, possibly related to acute aspiration. COVID-19 PCR was negative. There is a recurrent event and the patient was Hospital as for left lung pneumonia back in November 2021 and he was treated and he was discharged home without any major difficulties. Currently is on 100% nonrebreather facemask due to acute hypoxemic respiratory failure. He has extensive consolidation of the left lung. No significant leukocytosis. Note that the patient has a DNR/DNI CODE STATUS and this has been confirmed with the family. . Aspiration, recurrent . Recent hospitalization for pneumonia and hypoxic respiratory failure . Seizure disorder . History of developmental delay . Patient is nonverbal at baseline . History of meningitis with brain injury at 7 weeks of age Plan DNR/DNI CODE STATUS Keep the patient on examination Zosyn and vancomycin Use BiPAP if needed and for now the patient is comfortable in 100% nonrebreather facemask Seizure precautions Aspiration precautions Keep the patient nothing by mouth for now Add breathing treatments His prognosis is quite poor This was shared with his legal guardian We'll continue supportive treatment for now Activity should be strongly encouraged the patient survives this current event. For now the patient was admitted to the hospital. Allow the patient to take medication orally. If unable to, was switched IV.
[2022-02-27] MEDS ORDERED: VANCOMYCIN IV PER PHARMACY 1 EACH MISC MISCELLANE PRN (16:09)
[2022-02-27] MEDS ORDERED: TOPIRAMATE 15 MG PO SCH (16:30)
[2022-02-27] MEDS ORDERED: VANCOMYCIN 1,000 MG in SODIUM CHLORIDE 0.9% 250 ML IVPB ONE (17:00)
[2022-02-27] MEDS: ENOXAPARIN 30 MG/0.3 ML SYRINGE SQ SCH (17:23)
[2022-02-27] MEDS: DIVALPROEX SPRINKLE 125 MG CAP.SPRINK PO SCH (17:23)
[2022-02-27] MEDS: LORazepam 0.5 MG TAB PO SCH (17:23)
[2022-02-27] MEDS: PIPERACILLIN-TAZOBACTAM 3.375 GM in SODIUM CHLORIDE 0.9% 100 ML IVPB SCH (17:23)
[2022-02-27] MEDS: TOPIRAMATE 15 MG PO SCH (18:49)
[2022-02-27] MEDS ORDERED: IBUPROFEN 200 MG TAB PO PRN (20:16)
[2022-02-27] MEDS ORDERED: diphenhydrAMINE ELIXIR 25 MG/10 ML CUP PO PRN (20:16)
[2022-02-27] MEDS ORDERED: MAGNESIUM HYDROXIDE 2,400 MG/10 ML CUP PO PRN (20:16)
[2022-02-27] MEDS ORDERED: guaiFENesin-DM 100-10MG/5ML 10 ML CUP PO PRN (20:16)
[2022-02-28] MEDS: PIPERACILLIN-TAZOBACTAM 3.375 GM in SODIUM CHLORIDE 0.9% 100 ML IVPB SCH ×4 (00:04→23:45)
[2022-02-28] MEDS: SODIUM CHLORIDE 0.9% 1,000 ML IV SCH ×4 (01:48→23:09)
[2022-02-28] MEDS: VANCOMYCIN 750 MG in SODIUM CHLORIDE 0.9% 250 ML IVPB SCH ×2 (04:05→10:03)
[2022-02-28] MEDS: DIVALPROEX SPRINKLE 125 MG CAP.SPRINK PO SCH ×2 (05:41→17:12)
[2022-02-28] MEDS: LORazepam 0.5 MG TAB PO SCH ×5 (05:42→17:12)
[2022-02-28] MEDS: risperiDONE 0.25 MG TAB PO SCH (05:42)
[2022-02-28] MEDS: TOPIRAMATE 15 MG PO SCH ×2 (05:46→17:12)
[2022-02-28 09:52] LABS: Anisocytosis Slight; HCT 32.8 % (39.0-53.0); HGB 10.3 gm/dL (13.0-17.5); Hypochromasia Slight; MCH 28.4 pg (25.0-35.0); MCHC 31.3 g/dL (31.0-37.0); MCV 90.9 fL (80.0-100.0); Mean Platelet Volume 8.3; Platelet Count 133 k/uL (150-450); RBC 3.61 m/uL (4.30-5.90); RDW 19.3 % (11.5-15.5)
[2022-02-28] MEDS: ENOXAPARIN 30 MG/0.3 ML SYRINGE SQ SCH (10:02)
[2022-02-28 10:30] LABS: African American GFR (CKD) >90 (>60 ml/min/1.73 sqM); Anion Gap 7 mmol/L; Blood Urea Nitrogen 12 mg/dL (9-20); Calcium 8.2 mg/dL (8.4-10.2); Carbon Dioxide 25 mmol/L (22-30); Chloride 112 mmol/L (98-107); Glucose 75 mg/dL (74-99); Non-African American GFR(CKD) >90 (>60 ml/min/1.73 sqM); Sodium 144 mmol/L (137-145)
--- NOTE | 2022-02-28 10:36 | P.PN ---
Subjective Progress Note Date: 02/28/22 On 02/28/2022 patient is resting in bed currently maintained on partial nonrebreather. Current vitals temp 97.6, pulse rate 72, respiratory rate 18 blood pressure 97/64 patient stating 98% on partial rebreather at 15 L. Patient remains on IV vancomycin. Infectious disease services have been consulted. Currently blood cell count 6.6. Objective - Vital Signs Vital signs: Vital Signs Temp 97.6 F 02/28/22 03:29 Pulse 72 02/28/22 03:29 Resp 18 02/28/22 03:29 BP 97/64 02/28/22 03:29 Pulse Ox 98 02/28/22 03:29 FiO2 Intake & Output 02/27/22 02/28/22 02/28/22 18:59 06:59 18:59 Intake Total 10 Balance 10 Weight 47.627 kg Intake: IV 10 Invasive Line 1 10 Other: Voiding Method Diaper # Voids 1 # Bowel Movements 1 - Exam In general patient is somnolent responsive only to repeated stimuli HEENT head normocephalic and atraumatic Neck is supple no JVD no goiter no lymphadenopathy no carotid bruit Chest examination reveals a crackles in both lung galicia no wheezing Cardiac exam reveals regular heart sounds S1 and S2 no gallops no murmurs Abdomen is soft nontender no organomegaly with normal bowel sounds Extremity exam reveals no edema no cyanosis or clubbing Neurological examination reveals no gross focal deficits - Labs CBC & Chem 7: 02/28/22 08:58 02/28/22 08:58 Labs: Abnormal Lab Results - Last 24 Hours (Table) 02/28/22 02/28/22 Range/Units 08:58 08:58 RBC 3.61 L (4.30-5.90) m/uL Hgb 10.3 L (13.0-17.5) gm/dL Hct 32.8 L (39.0-53.0) % RDW 19.3 H (11.5-15.5) % Plt Count 133 L (150-450) k/uL Chloride 112 H (98-107) mmol/L Creatinine 0.40 L (0.66-1.25) mg/dL Calcium 8.2 L (8.4-10.2) mg/dL Assessment and Plan Plan: Acute pneumonia possibly related to aspiration pneumonia Acute hypoxic respiratory failure Previous episodes of aspiration pneumonia including recently in November 2021 Underlying history of developmental delay with severe physical and mental debility patient requires 24-hour care Underlying history of seizure disorder 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
[2022-02-28] MEDS ORDERED: IPRATROPIUM-ALBUTEROL 3 ML NEB INHALATION PRN (12:09)
--- NOTE | 2022-02-28 12:11 | P.PN ---
Subjective Progress Note Date: 02/28/22 36-year-old patient was coming into the hospital because of a extensive left andrei ng pneumonia. The patient was noted to be more short of breath at [facility] home and hypoxic and for that reason he was brought into the hospital. He has had previous history of aspiration pneumonia as the patient has significant developmental delay and he has been aspirating food according to the family. During his last admission back in a November 2021, the patient was being considered for PEG tube insertion and the patient did not have the procedure done. During this time, the patient was found to be hypoxic with a pulse of 86% and he normally does not wear any oxygen. It is nonproductive cough. He was not looking toxic and he was not looking to have a labored breathing at time of admission. 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 The patient continues to live in a long term. Note that a few members of the long term were positive for COVID 19. The patient tested negative. The patient's chest x-ray shows scoliosis and extensive consolidation of the left lung. The right lung is relatively preserved. The patient during his last admission was kept in ICU and was supported briefly with the BiPAP and ultimately improved in the left lung pneumonia cleared. Cultures at that time were all negative. Currently, he is in the emergency department. The patient was given Rocephin and Zithromax and ultimately switched antibiotics to Zosyn and vancomycin. The blood work shows a white cell count of 5.2, R a normal, platelet count is normal at 205, the liver function tests are normal, there for an albumin is at 3.5 with a protein of 7.7. Troponins are negative, BNP level is at 143. Influenza screen was also negative. The patient is currently on 100% on a beta facemasks. Received a total of 2 L of IV fluid and currently receiving normal saline at rate of 130s is an hour. On today's evaluation of 02/28/2022, the father the bedside is telling me that the patient is slightly more lethargic compared to yesterday. The patient does not communicate. Upon stimulation, he was able to open up his eyes. He is breathing is nonlabored. He is on a on partial nonrebreather facemask and the patient's pulse ox is 98% at this point in time. His blood pressure was soft and 84/50 cm of water the patient remained continues to be on normal saline at the rate of 130 mL an hour. The blood work from today shows no significant leukocytosis. The white cell count 6.6 with a hemoglobin of 10 and a platelet count of 133. Electrodes are all within normal limits. Renal function stable. Cultures are negative for now. He remains on a combination of Zosyn and vancomycin. Patient was able to get some diet yesterday with assistance. Family is interested in a PEG tube insertion if he recovers from this acute event. Objective - Vital Signs Vital signs: Vital Signs Temp 97.6 F 02/28/22 03:29 Pulse 71 02/28/22 08:00 Resp 18 02/28/22 08:00 BP 84/50 02/28/22 08:00 Pulse Ox 98 02/28/22 08:00 FiO2 Intake & Output 02/27/22 02/28/22 02/28/22 18:59 06:59 18:59 Intake Total 10 250 Balance 10 250 Weight 47.627 kg Intake: IV 10 Invasive Line 1 10 Intake, IV Titration 250 Amount Vancomycin 750 mg In 250 Sodium Chloride 0.9% 250 ml @ 125 mls/hr IVPB Q8H ON [facility] OF [facility] Rx#:[id number] Other: Voiding Method Diaper Diaper # Voids 1 # Bowel Movements 1 - Exam GENERAL EXAM: 36-year-old white male, with developmental delay, small statured, appears younger than stated age, in minimal degree of Lasix to the status. The patient is nonverbal. The patient is on 100% on a beta facemasks. Does not look to be toxic at this point in time. HEAD: Normocephalic/atraumatic. EYES: Normal reaction of pupils, equal size. Conjunctiva pink, sclera white. NOSE: Clear with pink turbinates. THROAT: No erythema or exudates. NECK: No masses, no JVD, no thyroid enlargement, no adenopathy. CHEST: No chest wall deformity. Symmetrical expansion. LUNGS: Equal air entry with no crackles, wheeze, rhonchi or dullness. Diminished breath on the left compared to the right along with some bronchial breath sounds and crackles in the left lung base. CVS: Regular rate and rhythm, normal S1 and S2, no gallops, no murmurs, no rubs ABDOMEN: Soft, nontender. No hepatosplenomegaly, normal bowel sounds, no guarding or rigidity. EXTREMITIES: No clubbing, no edema, no cyanosis, 2+ pulses and upper and lower extremities. MUSCULOSKELETAL: Muscle strength and tone normal. SPINE: No scoliosis or deformity SKIN: No rashes CENTRAL NERVOUS SYSTEM: Poorly responsive, tachypneic, and respiratory distress. No focal deficits, tone is normal in all 4 extremities. - Labs CBC & Chem 7: 02/28/22 08:58 02/28/22 08:58 Labs: Abnormal Lab Results - Last 24 Hours (Table) 02/28/22 02/28/22 Range/Units 08:58 08:58 RBC 3.61 L (4.30-5.90) m/uL Hgb 10.3 L (13.0-17.5) gm/dL Hct 32.8 L (39.0-53.0) % RDW 19.3 H (11.5-15.5) % Plt Count 133 L (150-450) k/uL Chloride 112 H (98-107) mmol/L Creatinine 0.40 L (0.66-1.25) mg/dL Calcium 8.2 L (8.4-10.2) mg/dL Assessment and Plan Plan: . Acute hypoxic respiratory failure related to acute pneumonia, possibly related to acute aspiration. COVID-19 PCR was negative. There is a recurrent event and the patient was Hospital as for left lung pneumonia back in November 2021 and he was treated and he was discharged home without any major difficulties. Currently is on partial nonrebreather facemask due to acute hypoxemic respiratory failure. He has extensive consolidation of the left lung. No significant leukocytosis. Note that the patient has a DNR/DNI CODE STATUS and this has been confirmed with the family. Today's evaluation, the patient remains on antibiotics. Hemodynamically stable although the blood pressure is soft and compared to yesterday. No significant leukocytosis and a cultures are all negative. . Aspiration, recurrent . Recent hospitalization for pneumonia and hypoxic respiratory failure . Seizure disorder . History of developmental delay . Patient is nonverbal at baseline . History of meningitis with brain injury at 7 weeks of age Plan DNR/DNI CODE STATUS Keep Zosyn and vancomycin Use BiPAP if needed and for now the patient is comfortable on patial nonrebreather facemask the patient was attempted on a nasal cannula yet he is off and we kept him back on 100% on a beta facemask today. Seizure precautions Aspiration precautions Keep the patient nothing by mouth for now His prognosis is quite poor This was shared with his legal guardian We'll continue supportive treatment for now Activity should be strongly encouraged the patient survives this current event. For now the patient was admitted to the hospital. Allow the patient to take medication orally. Obtain a chest x-ray in a.m.
[2022-02-28 13:00] LABS: Metamyelocytes % 1 %; Myelocytes % 1 %; Neutrophils % (M) 56 %; Nucleated Red Blood Cells 3 /100 WBC (0-0); Total Cells Counted 200
[2022-02-28 13:01] LABS: Metamyelocytes # (M) 0.06 k/uL (0); Monocytes # (M) 0.45 k/uL (0-1.0); Myelocytes # (M) 0.06 k/uL (0); Neutrophils # (M) 3.58 k/uL (1.3-7.7); WBC 6.4 k/uL (3.8-10.6)
--- NOTE | 2022-02-28 14:42 | P.HPIM ---
History of Present Illness H&P Date: 02/27/22 Tolu Sánchez, is a 36-year-old male who presented to [facility] emergency room due to increased somnolence and shortness of breath. He was evaluated in the emergency room vital examination on presentation revealed a temperature of 97.3 pulse 101 respiration 22 blood pressure 115/68 pulse ox 98% on room air Laboratory data revealed a white blood count of 5.2 hemoglobin 11.2 platelet count 205 sodium 139 potassium 3.2 chloride 100 CO2 26 BUN 20 creatinine 0.48 Testing in the emergency room revealed chest x-ray done in the emergency room revealed large infiltrate and/or opacification with air bronchogram within the left lung, EKG done in the emergency room revealed sinus tachycardia with right ventricular hypertrophy. Patient was admitted to medical floor for further evaluation and treatment, he was started on IV antibiotics, pulmonary consultation was requested. 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 History of Any Multi-Drug Resistant Organisms: None Reported Past Surgical History: No Surgical Hx Reported Additional Past Anesthesia/Blood Transfusion Reaction / Comment(s): Pt has never had surgery. Past Psychological History: No Psychological Hx Reported Smoking Status: Never smoker Past Alcohol Use History: None Reported Past Drug Use History: None Reported - Past Family History Mother Family Medical History: No Reported History Father Additional Family Medical History / Comment(s): Father has some joint problems and has had bilateral hip and knee replacements.spondolytis Medications and Allergies Home Medications Medication Instructions Recorded Confirmed Type Divalproex Sprinkle [Depakote 750 mg PO BID@0600,1630 12/23/16 02/27/22 History Sprinkle] LORazepam [Ativan] 1.5 mg PO TID@0600,1000,1630 12/23/16 02/27/22 History Topiramate [Topamax] 30 mg PO BID@0600,1630 12/23/16 02/27/22 History Acetaminophen Tab [Tylenol] 1,000 mg PO Q6H PRN 11/18/21 02/27/22 History Ibuprofen [Motrin Ib] 200 mg PO Q6H PRN 11/18/21 02/27/22 History Magnesium Hydroxide [Milk of 2,400 mg PO DAILY PRN 11/18/21 02/27/22 History Magnesia] diphenhydrAMINE ELIXIR [Benadryl 25 mg PO Q6H PRN 11/18/21 02/27/22 History Elixir] diphenhydrAMINE [Benadryl] 25 mg PO DIRECTED PRN 11/18/21 02/27/22 History guaiFENesin-DM 100-10MG/5ML 10 ml PO Q4H PRN 11/18/21 02/27/22 History [Robitussin DM] risperiDONE [RisperDAL] 0.25 mg PO DAILY@0600 11/18/21 02/27/22 History Cholecalciferol [Vitamin D3 (25 25 mcg PO DAILY@0600 02/27/22 02/27/22 History Mcg = 1000 Iu)] Ferrous Sulfate [Feosol] 325 mg PO DAILY@1630 02/27/22 02/27/22 History Allergies Allergy/AdvReac Type Severity Reaction Status Date / Time No Known Allergies Allergy Verified 02/27/22 08:52 Physical Exam Vitals: Vital Signs Temp Pulse Resp BP Pulse Ox 02/27/22 19:57 110 H 18 99/59 99 02/27/22 19:02 98.8 F 106 H 18 99/59 98 02/27/22 18:01 110 H 18 115/54 98 02/27/22 17:00 99 18 91/44 97 02/27/22 16:21 97.7 F 81 16 90/40 99 02/27/22 14:02 87 16 89/40 98 02/27/22 12:34 88 18 91/55 97 02/27/22 11:38 95 18 99/61 97 02/27/22 10:28 100 20 103/33 96 02/27/22 10:24 101 H 02/27/22 10:14 98 02/27/22 08:36 97.3 F L 101 H 22 115/68 98 Intake and Output 02/27/22 02/27/22 02/27/22 06:59 14:59 22:59 Other: Weight 47.627 kg In general patient is somnolent responsive only to repeated stimuli HEENT head normocephalic and atraumatic Neck is supple no JVD no goiter no lymphadenopathy no carotid bruit Chest examination reveals a crackles in both lung galicia no wheezing Cardiac exam reveals regular heart sounds S1 and S2 no gallops no murmurs Abdomen is soft nontender no organomegaly with normal bowel sounds Extremity exam reveals no edema no cyanosis or clubbing Neurological examination reveals no gross focal deficits Results CBC & Chem 7: 02/28/22 08:58 02/28/22 08:58 Labs: Abnormal Lab Results - Last 24 Hours (Table) 02/27/22 02/27/22 Range/Units 08:31 08:31 RBC 3.90 L (4.30-5.90) m/uL Hgb 11.2 L (13.0-17.5) gm/dL Hct 34.9 L (39.0-53.0) % RDW 19.8 H (11.5-15.5) % Metamyelocytes # (Man) 0.10 H (0) k/uL Myelocytes # (Manual) 0.10 H (0) k/uL Nucleated RBCs 3 H (0-0) /100 WBC Potassium 3.2 L (3.5-5.1) mmol/L Creatinine 0.48 L (0.66-1.25) mg/dL Glucose 129 H (74-99) mg/dL Assessment and Plan Plan: Acute pneumonia possibly related to aspiration pneumonia Acute hypoxic respiratory failure Previous episodes of aspiration pneumonia including recently in November 2021 Underlying history of developmental delay with severe physical and mental debility patient requires 24-hour care Underlying history of seizure disorder 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
[2022-02-28] MEDS: IPRATROPIUM-ALBUTEROL 3 ML NEB INHALATION SCH ×2 (15:33→19:55)
--- NOTE | 2022-02-28 22:36 | P.CONS ---
History of Present Illness - Reason for Consult Consult date: 02/28/22 Recurrent pneumonia Requesting physician: Iveth Ramirez - Chief Complaint Shortness of breath x few days - History of Present Illness Patient is a 36-year-old male with a past medical history significant for viral meningitis at the age of 7 weeks with brain injury patient is a physically and mentally impaired and history of seizure disorder along with recurrent aspiration pneumonia last admission to this hospital was back in November 2021, the patient has not been brought back to the hospital concerning for increasing shortness of breath apparently has been getting worse for a day or 2 before presentation to the hospital patient apparently also have a conge sted cough but not bringing up any sputum no vomiting or diarrhea has been reported by the father at the bedside who provides most of the history patient on presentation to the hospital was afebrile patient was hypoxic with need for supplemental oxygen currently on partial nonrebreather did have a normal white count kidney function has been normal B[place]eo and influenza PCR was negative patient did have a chest x-ray no significant obstipation with a program within the left lung patient was started on Zosyn and vancomycin infectious disease was consulted for further management of antibiotic therapy most information has been obtained from review the chart and talking to the father as the patient himself could not provide any history Review of Systems Positive points has been mentioned in HPI complete review could not be obtained because of his underlying mental status Past Medical History Past Medical History: Pneumonia, Seizure Disorder Additional Past Medical History / Comment(s): 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 History of Any Multi-Drug Resistant Organisms: None Reported Past Surgical History: No Surgical Hx Reported Additional Past Anesthesia/Blood Transfusion Reaction / Comm: Pt has never had surgery. Past Psychological History: No Psychological Hx Reported Smoking Status: Never smoker Past Alcohol Use History: None Reported Past Drug Use History: None Reported - Past Family History Mother Family Medical History: No Reported History Father Additional Family Medical History / Comment(s): Father has some joint problems and has had bilateral hip and knee replacements.spondolytis Medications and Allergies Home Medications Medication Instructions Recorded Confirmed Type Divalproex Sprinkle [Depakote 750 mg PO BID@0600,1630 12/23/16 02/27/22 History Sprinkle] LORazepam [Ativan] 1.5 mg PO TID@0600,1000,1630 12/23/16 02/27/22 History Topiramate [Topamax] 30 mg PO BID@0600,1630 12/23/16 02/27/22 History Acetaminophen Tab [Tylenol] 1,000 mg PO Q6H PRN 11/18/21 02/27/22 History Ibuprofen [Motrin Ib] 200 mg PO Q6H PRN 11/18/21 02/27/22 History Magnesium Hydroxide [Milk of 2,400 mg PO DAILY PRN 11/18/21 02/27/22 History Magnesia] diphenhydrAMINE ELIXIR [Benadryl 25 mg PO Q6H PRN 11/18/21 02/27/22 History Elixir] diphenhydrAMINE [Benadryl] 25 mg PO DIRECTED PRN 11/18/21 02/27/22 History guaiFENesin-DM 100-10MG/5ML 10 ml PO Q4H PRN 11/18/21 02/27/22 History [Robitussin DM] risperiDONE [RisperDAL] 0.25 mg PO DAILY@0600 11/18/21 02/27/22 History Cholecalciferol [Vitamin D3 (25 25 mcg PO DAILY@0600 02/27/22 02/27/22 History Mcg = 1000 Iu)] Ferrous Sulfate [Feosol] 325 mg PO DAILY@1630 02/27/22 02/27/22 History Allergies Allergy/AdvReac Type Severity Reaction Status Date / Time No Known Allergies Allergy Verified 02/27/22 08:52 Physical Exam Vitals: Vital Signs Temp Pulse Pulse Resp BP BP Pulse Ox 02/28/22 08:00 71 18 84/50 98 02/28/22 03:29 97.6 F 72 18 97/64 98 02/27/22 23:30 97.1 F L 81 18 103/63 98 02/27/22 22:33 98 18 119/73 100 02/27/22 19:57 110 H 18 99/59 99 02/27/22 19:02 98.8 F 106 H 18 99/59 98 02/27/22 18:01 110 H 18 115/54 98 02/27/22 17:00 99 18 91/44 97 02/27/22 16:21 97.7 F 81 16 90/40 99 02/27/22 14:02 87 16 89/40 98 02/27/22 12:34 88 18 91/55 97 Intake and Output 02/27/22 02/28/22 02/28/22 22:59 06:59 14:59 Intake Total 10 250 Balance 10 250 Intake: IV 10 Invasive Line 1 10 Intake, IV Titration 250 Amount Vancomycin 750 mg In 250 Sodium Chloride 0.9% 250 ml @ 125 mls/hr IVPB Q8H [facility] Rx#:[id number] Other: Voiding Method Diaper Diaper # Voids 1 # Bowel Movements 1 GENERAL DESCRIPTION: Middle-aged male lying in bed, no distress. No tachypnea or accessory muscle of respiration use. HEENT: Shows Pallor , no scleral icterus. Oral mucous membrane is dry. No pharyngeal erythema or thrush NECK: Trachea central, no thyromegaly. LUNGS: Unlabored breathing. Coarse breath sounds bilaterally. No wheeze or crackle. HEART: S1, S2, regular rate and rhythm. No loud murmur ABDOMEN: Soft, no tenderness , guarding or rigidity, no organomegaly EXTREMITIES: No edema of feet. SKIN: No rash, no masses palpable. NEUROLOGICAL: The patient is lethargic orientation could not be determined Results CBC & Chem 7: 02/28/22 08:58 02/28/22 08:58 Labs: Abnormal Lab Results - Last 24 Hours (Table) 02/28/22 02/28/22 Range/Units 08:58 08:58 RBC 3.61 L (4.30-5.90) m/uL Hgb 10.3 L (13.0-17.5) gm/dL Hct 32.8 L (39.0-53.0) % RDW 19.3 H (11.5-15.5) % Plt Count 133 L (150-450) k/uL Chloride 112 H (98-107) mmol/L Creatinine 0.40 L (0.66-1.25) mg/dL Calcium 8.2 L (8.4-10.2) mg/dL Assessment and Plan (1) Pneumonia Current Visit: Yes Status: Acute Code(s): J18.9 - PNEUMONIA, UNSPECIFIED ORGANISM SNOMED Code(s): 345291208 Plan: 1patient presented to hospital with increasing shortness of breath with evidence of extensive pneumonia on the left lung likely secondary to aspiration in this patient with underlying mental impairment. 2patient will benefit from PEG tube placement to decrease risk of recurrent aspiration pneumonia this was discussed in detail with the father. 3try to obtain a sputum for gram stain culture. 4continue with Zosyn however discontinue vancomycin to decrease risk of nephrotoxicity. We will follow on clinical condition and cultures to further adjust medication if needed Thank you for this consultation will follow this patient along with you Time with Patient: Greater than 30
[2022-03-01] MEDS ORDERED: VANCOMYCIN TROUGH DUE 1 EACH MISC MISCELLANE ONE (01:00)
[2022-03-01] MEDS: IPRATROPIUM-ALBUTEROL 3 ML NEB INHALATION SCH ×4 (08:07→20:02)
--- NOTE | 2022-03-01 08:33 | XR ---
EXAMINATION TYPE: XR chest 1V portable DATE OF EXAM: 03/01/2022 COMPARISON: 02/27/2022 INDICATION: Left lung pneumonia TECHNIQUE: Single frontal view of the chest is obtained. Patient is rotated to the left and in the se miupright position FINDINGS: The heart is obscured. The pulmonary vasculature is normal. There is opacification of the left lung field. Few air bronchograms are evident. There is mild increa sed perihilar lung markings on the right. This is increasing from comparison. IMPRESSION: 1. Worsening right perihilar infiltrate. 2. Continued near complete opacification of the left lung.
[2022-03-01] MEDS: PIPERACILLIN-TAZOBACTAM 3.375 GM in SODIUM CHLORIDE 0.9% 100 ML IVPB SCH ×3 (08:56→23:29)
[2022-03-01] MEDS: ENOXAPARIN 30 MG/0.3 ML SYRINGE SQ SCH (08:57)
[2022-03-01] MEDS: SODIUM CHLORIDE 0.9% 1,000 ML IV SCH ×3 (08:57→22:59)
[2022-03-01 09:01] LABS: Anisocytosis Slight; Basophils % (A) 0 %; Eosinophils % (A) 0 %; HCT 35.7 % (39.0-53.0); HGB 10.6 gm/dL (13.0-17.5); Hypochromasia Marked; Lymphocytes # (A) 1.5 k/uL (1.0-4.8); Lymphocytes % (A) 20 %; MCH 27.9 pg (25.0-35.0); MCHC 29.8 g/dL (31.0-37.0); MCV 93.7 fL (80.0-100.0); Mean Platelet Volume 7.9; Monocytes # (A) 0.6 k/uL (0-1.0); Monocytes % (A) 8 %; Neutrophils # (A) 5.1 k/uL (1.3-7.7); Neutrophils % (A) 68 %; Platelet Count 156 k/uL (150-450); RBC 3.81 m/uL (4.30-5.90); RDW 19.6 % (11.5-15.5); WBC 7.6 k/uL (3.8-10.6)
[2022-03-01 09:22] LABS: ALT 20 U/L (4-49); AST 24 U/L (17-59); African American GFR (CKD) >90 (>60 ml/min/1.73 sqM); Albumin 2.9 g/dL (3.5-5.0); Alkaline Phosphatase 126 U/L (38-126); Anion Gap 9 mmol/L; Blood Urea Nitrogen 8 mg/dL (9-20); Calcium 8.7 mg/dL (8.4-10.2); Carbon Dioxide 27 mmol/L (22-30); Chloride 109 mmol/L (98-107); Glucose 89 mg/dL (74-99); Non-African American GFR(CKD) >90 (>60 ml/min/1.73 sqM); Potassium 3.4 mmol/L (3.5-5.1); Sodium 145 mmol/L (137-145); Total Bilirubin 0.1 mg/dL (0.2-1.3); Total Protein 6.8 g/dL (6.3-8.2)
--- NOTE | 2022-03-01 09:26 | P.PN ---
Subjective Progress Note Date: 03/01/22 Tolu Sánchez, is a 36-year-old male who presented to [facility] emergency room due to increased somnolence and shortness of breath. He was evaluated in the emergency room vital examination on presentation revealed a temperature of 97.3 pulse 101 respiration 22 blood pressure 115/68 pulse ox 98% on room air Laboratory data revealed a white blood count of 5.2 hemoglobin 11.2 platelet count 205 sodium 139 potassium 3.2 chloride 100 CO2 26 BUN 20 creatinine 0.48 Testing in the emergency room revealed chest x-ray done in the emergency room revealed large infiltrate and/or opacification with air bronchogram within the left lung, EKG done in the emergency room revealed sinus tachycardia with right ventricular hypertrophy. Patient was admitted to medical floor for further evaluation and treatment, he was started on IV antibiotics, pulmonary consultation was requested. On 02/28/2022 patient is resting in bed currently maintained on partial nonrebreather. Current vitals temp 97.6, pulse rate 72, respiratory rate 18 blood pressure 97/64 patient stating 98% on partial rebreather at 15 L. Patient remains on IV vancomycin. Infectious disease services have been consulted. Currently blood cell count 6.6. On 03/01/2022 patient remains on partial nonrebreather. Infectious disease and pulmonary services are following this session was held with family per infectious PEG tube placement. Vitals temp 97.4, heart rate 78, respiratory rate 16, blood pressure 100/60 patient satting 98% on partial rebreather 15 L Objective - Vital Signs Vital signs: Vital Signs Temp 97.4 F L 03/01/22 04:30 Pulse 105 H 03/01/22 08:53 Resp 18 03/01/22 08:53 BP 128/58 03/01/22 08:53 Pulse Ox 96 03/01/22 08:53 FiO2 Intake & Output 02/28/22 03/01/22 03/01/22 18:59 06:59 18:59 Intake Total 350 Balance 350 Weight 47.627 kg Intake: Intake, IV Titration 350 Amount Piperacillin-Tazobactam 3 100 .375 gm In Sodium Chloride 0.9% 100 ml @ 25 mls/hr IVPB Q8HR [facility] Rx# :[id number] Vancomycin 750 mg In 250 Sodium Chloride 0.9% 250 ml @ 125 mls/hr IVPB Q8H [facility] Rx#:[id number] Other: Voiding Method Diaper Diaper # Voids 1 2 # Bowel Movements 1 2 - Exam In general patient is somnolent responsive only to repeated stimuli HEENT head normocephalic and atraumatic Neck is supple no JVD no goiter no lymphadenopathy no carotid bruit Chest examination reveals a crackles in both lung galicia no wheezing Cardiac exam reveals regular heart sounds S1 and S2 no gallops no murmurs Abdomen is soft nontender no organomegaly with normal bowel sounds Extremity exam reveals no edema no cyanosis or clubbing Neurological examination reveals no gross focal deficits - Labs CBC & Chem 7: 03/01/22 08:40 03/01/22 08:40 Labs: Abnormal Lab Results - Last 24 Hours (Table) 02/28/22 02/28/22 03/01/22 Range/Units 08:58 08:58 08:40 RBC 3.61 L 3.81 L (4.30-5.90) m/uL Hgb 10.3 L 10.6 L (13.0-17.5) gm/dL Hct 32.8 L 35.7 L (39.0-53.0) % MCHC 29.8 L (31.0-37.0) g/dL RDW 19.3 H 19.6 H (11.5-15.5) % Plt Count 133 L (150-450) k/uL Metamyelocytes # (Man) 0.06 H (0) k/uL Myelocytes # (Manual) 0.06 H (0) k/uL Nucleated RBCs 3 H (0-0) /100 WBC Potassium (3.5-5.1) mmol/L Chloride 112 H (98-107) mmol/L BUN (9-20) mg/dL Creatinine 0.40 L (0.66-1.25) mg/dL Calcium 8.2 L (8.4-10.2) mg/dL Total Bilirubin (0.2-1.3) mg/dL Albumin (3.5-5.0) g/dL 03/01/22 Range/Units 08:40 RBC (4.30-5.90) m/uL Hgb (13.0-17.5) gm/dL Hct (39.0-53.0) % MCHC (31.0-37.0) g/dL RDW (11.5-15.5) % Plt Count (150-450) k/uL Metamyelocytes # (Man) (0) k/uL Myelocytes # (Manual) (0) k/uL Nucleated RBCs (0-0) /100 WBC Potassium 3.4 L (3.5-5.1) mmol/L Chloride 109 H (98-107) mmol/L BUN 8 L (9-20) mg/dL Creatinine 0.43 L (0.66-1.25) mg/dL Calcium (8.4-10.2) mg/dL Total Bilirubin 0.1 L (0.2-1.3) mg/dL Albumin 2.9 L (3.5-5.0) g/dL Microbiology - Last 24 Hours (Table) 02/27/22 09:30 Blood Culture - Preliminary Blood No Growth after 24 hours 02/27/22 09:47 Blood Culture - Preliminary Blood No Growth after 24 hours Assessment and Plan Plan: Acute pneumonia possibly related to aspiration pneumonia Acute hypoxic respiratory failure Previous episodes of aspiration pneumonia including recently in November 2021 Underlying history of developmental delay with severe physical and mental debility patient requires 24-hour care Underlying history of seizure disorder 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
[2022-03-01] MEDS: LORazepam 0.5 MG TAB PO SCH ×3 (10:31→18:46)
--- NOTE | 2022-03-01 12:09 | P.PN ---
Subjective Progress Note Date: 03/01/22 36-year-old patient was coming into the hospital because of a extensive left andrei ng pneumonia. The patient was noted to be more short of breath at [facility] home and hypoxic and for that reason he was brought into the hospital. He has had previous history of aspiration pneumonia as the patient has significant developmental delay and he has been aspirating food according to the family. During his last admission back in a November 2021, the patient was being considered for PEG tube insertion and the patient did not have the procedure done. During this time, the patient was found to be hypoxic with a pulse of 86% and he normally does not wear any oxygen. It is nonproductive cough. He was not looking toxic and he was not looking to have a labored breathing at time of admission. 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 The patient continues to live in a retirement. Note that a few members of the retirement were positive for COVID 19. The patient tested negative. The patient's chest x-ray shows scoliosis and extensive consolidation of the left lung. The right lung is relatively preserved. The patient during his last admission was kept in ICU and was supported briefly with the BiPAP and ultimately improved in the left lung pneumonia cleared. Cultures at that time were all negative. Currently, he is in the emergency department. The patient was given Rocephin and Zithromax and ultimately switched antibiotics to Zosyn and vancomycin. The blood work shows a white cell count of 5.2, R a normal, platelet count is normal at 205, the liver function tests are normal, there for an albumin is at 3.5 with a protein of 7.7. Troponins are negative, BNP level is at 143. Influenza screen was also negative. The patient is currently on 100% on a beta facemasks. Received a total of 2 L of IV fluid and currently receiving normal saline at rate of 130s is an hour. On today's evaluation of 02/28/2022, the father the bedside is telling me that the patient is slightly more lethargic compared to yesterday. The patient does not communicate. Upon stimulation, he was able to open up his eyes. He is breathing is nonlabored. He is on a on partial nonrebreather facemask and the patient's pulse ox is 98% at this point in time. His blood pressure was soft and 84/50 cm of water the patient remained continues to be on normal saline at the rate of 130 mL an hour. The blood work from today shows no significant leukocytosis. The white cell count 6.6 with a hemoglobin of 10 and a platelet count of 133. Electrodes are all within normal limits. Renal function stable. Cultures are negative for now. He remains on a combination of Zosyn and vancomycin. Patient was able to get some diet yesterday with assistance. Family is interested in a PEG tube insertion if he recovers from this acute event. 03/01/2022, the patient's condition is essentially the same as yesterday. Repeat chest x-ray was done and the patient was found to have still persistent consolidation of the left lung. The patient is being fed through family members. The patient remains on IV Zosyn and vancomycin. No seizure activity has been noted. Electrodes are stable. The white cell count is at 7.6 with a hemoglobin of 10.6. The patient is using a partial nonrebreather facemask and his current pulse ox 96% and his breathing is nonlabored at this point in time. Objective - Vital Signs Vital signs: Vital Signs Temp 97.4 F L 03/01/22 04:30 Pulse 80 03/01/22 11:43 Resp 18 03/01/22 09:49 BP 128/58 03/01/22 08:53 Pulse Ox 96 03/01/22 08:53 FiO2 Intake & Output 02/28/22 03/01/22 03/01/22 18:59 06:59 18:59 Intake Total 350 400 Balance 350 400 Weight 47.627 kg Intake: Intake, IV Titration 350 400 Amount Piperacillin-Tazobactam 3 100 100 .375 gm In Sodium Chloride 0.9% 100 ml @ 25 mls/hr IVPB Q8HR [facility] Rx# :[id number] Sodium Chloride 0.9% 1, 300 000 ml @ 130 mls/hr IV . Q7H42M [facility] Rx#:[id number] Vancomycin 750 mg In 250 Sodium Chloride 0.9% 250 ml @ 125 mls/hr IVPB Q8H [facility] Rx#:[id number] Other: Voiding Method Diaper Diaper Diaper # Voids 1 2 1 # Bowel Movements 1 2 1 - Exam GENERAL EXAM: 36-year-old white male, with developmental delay, small statured, appears younger than stated age, in minimal degree of Lasix to the status. The patient is nonverbal. The patient is on 100% on a beta facemasks. Does not look to be toxic at this point in time. HEAD: Normocephalic/atraumatic. EYES: Normal reaction of pupils, equal size. Conjunctiva pink, sclera white. NOSE: Clear with pink turbinates. THROAT: No erythema or exudates. NECK: No masses, no JVD, no thyroid enlargement, no adenopathy. CHEST: No chest wall deformity. Symmetrical expansion. LUNGS: Equal air entry with no crackles, wheeze, rhonchi or dullness. Diminished breath on the left compared to the right along with some bronchial breath sounds and crackles in the left lung base. CVS: Regular rate and rhythm, normal S1 and S2, no gallops, no murmurs, no rubs ABDOMEN: Soft, nontender. No hepatosplenomegaly, normal bowel sounds, no guarding or rigidity. EXTREMITIES: No clubbing, no edema, no cyanosis, 2+ pulses and upper and lower extremities. MUSCULOSKELETAL: Muscle strength and tone normal. SPINE: No scoliosis or deformity SKIN: No rashes CENTRAL NERVOUS SYSTEM: Poorly responsive, tachypneic, and respiratory distress. No focal deficits, tone is normal in all 4 extremities. - Labs CBC & Chem 7: 03/01/22 08:40 03/01/22 08:40 Labs: Abnormal Lab Results - Last 24 Hours (Table) 02/28/22 03/01/22 03/01/22 Range/Units 08:58 08:40 08:40 RBC 3.81 L (4.30-5.90) m/uL Hgb 10.6 L (13.0-17.5) gm/dL Hct 35.7 L (39.0-53.0) % MCHC 29.8 L (31.0-37.0) g/dL RDW 19.6 H (11.5-15.5) % Metamyelocytes # (Man) 0.06 H (0) k/uL Myelocytes # (Manual) 0.06 H (0) k/uL Nucleated RBCs 3 H (0-0) /100 WBC Potassium 3.4 L (3.5-5.1) mmol/L Chloride 109 H (98-107) mmol/L BUN 8 L (9-20) mg/dL Creatinine 0.43 L (0.66-1.25) mg/dL Total Bilirubin 0.1 L (0.2-1.3) mg/dL Albumin 2.9 L (3.5-5.0) g/dL Microbiology - Last 24 Hours (Table) 02/27/22 09:30 Blood Culture - Preliminary Blood No Growth after 24 hours 02/27/22 09:47 Blood Culture - Preliminary Blood No Growth after 24 hours Assessment and Plan Plan: . Acute hypoxic respiratory failure related to acute pneumonia, possibly related to acute aspiration. COVID-19 PCR was negative. There is a recurrent event and the patient was Hospital as for left lung pneumonia back in November 2021 and he was treated and he was discharged home without any major difficulties. Currently is on partial nonrebreather facemask due to acute hypoxemic respiratory failure. He has extensive consolidation of the left lung. No significant leukocytosis. Note that the patient has a DNR/DNI CODE STATUS and this has been confirmed with the family. Today's evaluation, the patient remains on antibiotics. Hemodynamically stable although the blood pressure is soft and compared to yesterday. No significant leukocytosis and a cultures are all negative. . Aspiration, recurrent . Recent hospitalization for pneumonia and hypoxic respiratory failure . Seizure disorder . History of developmental delay . Patient is nonverbal at baseline . History of meningitis with brain injury at 7 weeks of age Plan DNR/DNI CODE STATUS Clinically unchanged Keep Zosyn and vancomycin Use BiPAP if needed and for now the patient is comfortable on patial nonrebreather facemask the patient was attempted on a nasal cannula yet he is off and we kept him back on 100% on a beta facemask today. Repeat chest x-ray from today shows stable extensive left lung consolidation Seizure precautions Aspiration precautions Keep the patient nothing by mouth for now His prognosis is quite poor Consider PEG tube if the patient recovers from this current bout of pneumonia.
[2022-03-01] MEDS: DIVALPROEX SPRINKLE 125 MG CAP.SPRINK PO SCH ×2 (12:46→18:41)
[2022-03-01] MEDS: risperiDONE 0.25 MG TAB PO SCH (12:48)
[2022-03-01] MEDS: TOPIRAMATE 15 MG PO SCH ×2 (12:49→18:52)
--- NOTE | 2022-03-01 22:45 | P.PN ---
Subjective Progress Note Date: 03/01/22 Principal diagnosis: Recurrent aspiration pneumonia Patient is a 36 year old male with mental and developmental delay admitted to the hospital with increasing shortness of breath and concerning for extensive left-sided pneumonia likely aspiration etiology. On today's evaluation that is 03/01/2022, patient is afebrile the patient is requiring high flow oxygen, patient is arousable but not horrible and unable to provide any history, no vomiting or diarrhea reported by the nursing staff Objective - Vital Signs Vital signs: Vital Signs Temp 97.4 F L 03/01/22 04:30 Pulse 87 03/01/22 16:53 Resp 18 03/01/22 16:53 BP 96/55 03/01/22 16:53 Pulse Ox 98 03/01/22 16:53 FiO2 Intake & Output 03/01/22 03/01/22 03/02/22 06:59 18:59 06:59 Intake Total 650 Balance 650 Intake: Intake, IV Titration 650 Amount Piperacillin-Tazobactam 3 100 .375 gm In Sodium Chloride 0.9% 100 ml @ 25 mls/hr IVPB Q8HR [facility] Rx# :[id number] Sodium Chloride 0.9% 1, 550 000 ml @ 130 mls/hr IV . Q7H42M [facility] Rx#:[id number] Other: Voiding Method Diaper Diaper # Voids 2 1 # Bowel Movements 2 1 - Exam GENERAL DESCRIPTION: Middle-aged male lying in bed in no distress RESPIRATORY SYSTEM: Unlabored breathing , coarse Bilaterally HEART: S1 S2 regular rate and rhythm , ABDOMEN: Soft , no tenderness EXTREMITIES: No edema feet - Labs CBC & Chem 7: 03/01/22 08:40 03/01/22 08:40 Labs: Abnormal Lab Results - Last 24 Hours (Table) 03/01/22 03/01/22 Range/Units 08:40 08:40 RBC 3.81 L (4.30-5.90) m/uL Hgb 10.6 L (13.0-17.5) gm/dL Hct 35.7 L (39.0-53.0) % MCHC 29.8 L (31.0-37.0) g/dL RDW 19.6 H (11.5-15.5) % Potassium 3.4 L (3.5-5.1) mmol/L Chloride 109 H (98-107) mmol/L BUN 8 L (9-20) mg/dL Creatinine 0.43 L (0.66-1.25) mg/dL Total Bilirubin 0.1 L (0.2-1.3) mg/dL Albumin 2.9 L (3.5-5.0) g/dL Microbiology - Last 24 Hours (Table) 02/27/22 09:30 Blood Culture - Preliminary Blood No Growth after 48 hours 02/27/22 09:47 Blood Culture - Preliminary Blood No Growth after 48 hours Assessment and Plan (1) Pneumonia Current Visit: Yes Status: Acute Code(s): J18.9 - PNEUMONIA, UNSPECIFIED ORGANISM SNOMED Code(s): 368387472 Plan: 1patient presented to hospital with increasing shortness of breath with evidence of extensive pneumonia on the left lung likely secondary to aspiration in this patient with underlying mental impairment. 2patient will benefit from PEG tube placement to decrease risk of recurrent aspiration pneumonia 3will try to obtain a sputum for gram stain culture. 4patient to continue with Zosyn and monitor clinical course closely Time with Patient: Less than 30
[2022-03-02] MEDS: risperiDONE 0.25 MG TAB PO SCH (06:24)
[2022-03-02] MEDS: DIVALPROEX SPRINKLE 125 MG CAP.SPRINK PO SCH ×2 (06:24→18:06)
[2022-03-02] MEDS: TOPIRAMATE 15 MG PO SCH ×2 (06:25→18:07)
[2022-03-02] MEDS: LORazepam 0.5 MG TAB PO SCH ×3 (06:33→18:06)
[2022-03-02] MEDS: SODIUM CHLORIDE 0.9% 1,000 ML IV SCH ×3 (06:37→17:04)
[2022-03-02] MEDS: PIPERACILLIN-TAZOBACTAM 3.375 GM in SODIUM CHLORIDE 0.9% 100 ML IVPB SCH ×2 (09:00→18:04)
[2022-03-02] MEDS: ENOXAPARIN 30 MG/0.3 ML SYRINGE SQ SCH (09:03)
[2022-03-02] MEDS: IPRATROPIUM-ALBUTEROL 3 ML NEB INHALATION SCH ×4 (09:12→20:47)
[2022-03-02 09:23] LABS: ALT 15 U/L (4-49); AST 21 U/L (17-59); African American GFR (CKD) >90 (>60 ml/min/1.73 sqM); Albumin 2.6 g/dL (3.5-5.0); Alkaline Phosphatase 105 U/L (38-126); Anion Gap 8 mmol/L; Blood Urea Nitrogen 8 mg/dL (9-20); Calcium 8.4 mg/dL (8.4-10.2); Carbon Dioxide 27 mmol/L (22-30); Chloride 109 mmol/L (98-107); Glucose 91 mg/dL (74-99); Non-African American GFR(CKD) >90 (>60 ml/min/1.73 sqM); Potassium 3.5 mmol/L (3.5-5.1); Sodium 144 mmol/L (137-145); Total Bilirubin <0.1 mg/dL (0.2-1.3); Total Protein 6.2 g/dL (6.3-8.2)
[2022-03-02 09:36] LABS: Anisocytosis Slight; HCT 31.6 % (39.0-53.0); HGB 9.8 gm/dL (13.0-17.5); Hypochromasia Marked; MCH 28.6 pg (25.0-35.0); MCHC 30.9 g/dL (31.0-37.0); MCV 92.5 fL (80.0-100.0); Mean Platelet Volume 7.9; Platelet Count 135 k/uL (150-450); RBC 3.42 m/uL (4.30-5.90); RDW 19.9 % (11.5-15.5); WBC 5.7 k/uL (3.8-10.6)
[2022-03-02 10:39] LABS: Band Neutrophils % 7 %; Eosinophils # (M) 0.06 k/uL (0-0.7); Metamyelocytes # (M) 0.23 k/uL (0); Metamyelocytes % 4 %; Monocytes # (M) 0.63 k/uL (0-1.0); Myelocytes # (M) 0.23 k/uL (0); Myelocytes % 4 %; Neutrophils % (M) 46 %; Nucleated Red Blood Cells 0 /100 WBC (0-0); Total Cells Counted 200
[2022-03-02 10:40] LABS: Toxic Granulation Present
--- NOTE | 2022-03-02 11:20 | P.PN ---
Subjective Progress Note Date: 03/02/22 36-year-old patient was coming into the hospital because of a extensive left andrei ng pneumonia. The patient was noted to be more short of breath at [facility] home and hypoxic and for that reason he was brought into the hospital. He has had previous history of aspiration pneumonia as the patient has significant developmental delay and he has been aspirating food according to the family. During his last admission back in a November 2021, the patient was being considered for PEG tube insertion and the patient did not have the procedure done. During this time, the patient was found to be hypoxic with a pulse of 86% and he normally does not wear any oxygen. It is nonproductive cough. He was not looking toxic and he was not looking to have a labored breathing at time of admission. 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 The patient continues to live in a fci. Note that a few members of the fci were positive for COVID 19. The patient tested negative. The patient's chest x-ray shows scoliosis and extensive consolidation of the left lung. The right lung is relatively preserved. The patient during his last admission was kept in ICU and was supported briefly with the BiPAP and ultimately improved in the left lung pneumonia cleared. Cultures at that time were all negative. Currently, he is in the emergency department. The patient was given Rocephin and Zithromax and ultimately switched antibiotics to Zosyn and vancomycin. The blood work shows a white cell count of 5.2, R a normal, platelet count is normal at 205, the liver function tests are normal, there for an albumin is at 3.5 with a protein of 7.7. Troponins are negative, BNP level is at 143. Influenza screen was also negative. The patient is currently on 100% on a beta facemasks. Received a total of 2 L of IV fluid and currently receiving normal saline at rate of 130s is an hour. On today's evaluation of 02/28/2022, the father the bedside is telling me that the patient is slightly more lethargic compared to yesterday. The patient does not communicate. Upon stimulation, he was able to open up his eyes. He is breathing is nonlabored. He is on a on partial nonrebreather facemask and the patient's pulse ox is 98% at this point in time. His blood pressure was soft and 84/50 cm of water the patient remained continues to be on normal saline at the rate of 130 mL an hour. The blood work from today shows no significant leukocytosis. The white cell count 6.6 with a hemoglobin of 10 and a platelet count of 133. Electrodes are all within normal limits. Renal function stable. Cultures are negative for now. He remains on a combination of Zosyn and vancomycin. Patient was able to get some diet yesterday with assistance. Family is interested in a PEG tube insertion if he recovers from this acute event. 03/01/2022, the patient's condition is essentially the same as yesterday. Repeat chest x-ray was done and the patient was found to have still persistent consolidation of the left lung. The patient is being fed through family members. The patient remains on IV Zosyn and vancomycin. No seizure activity has been noted. Electrodes are stable. The white cell count is at 7.6 with a hemoglobin of 10.6. The patient is using a partial nonrebreather facemask and his current pulse ox 96% and his breathing is nonlabored at this point in time. 03/02/2022, condition essentially unchanged. The patient was brought down to 12 L partial nonrebreather facemask and the pulse ox is around 96%. Breathing remains nonlabored and the patient is hemodynamically stable. Labs are unchanged and the patient has a white count of 5.7 with a hemoglobin of 9.8 and a platelet count of 135. BUN is at 80 the creatinine 0.4 and sodium level is up to 144. Remains on IV Zosyn for now. Objective - Vital Signs Vital signs: Vital Signs Temp 97.4 F L 03/02/22 03:45 Pulse 80 03/02/22 09:21 Resp 18 03/02/22 08:54 BP 124/68 03/02/22 08:54 Pulse Ox 96 03/02/22 08:54 FiO2 50 03/02/22 03:45 Intake & Output 03/01/22 03/02/22 03/02/22 18:59 06:59 18:59 Intake Total 650 Balance 650 Intake: Intake, IV Titration 650 Amount Piperacillin-Tazobactam 3 100 .375 gm In Sodium Chloride 0.9% 100 ml @ 25 mls/hr IVPB Q8HR [facility] Rx# :[id number] Sodium Chloride 0.9% 1, 550 000 ml @ 130 mls/hr IV . Q7H42M [facility] Rx#:[id number] Other: Voiding Method Diaper Diaper # Voids 1 1 # Bowel Movements 1 1 - Exam GENERAL EXAM: 36-year-old white male, with developmental delay, small statured, appears younger than stated age, in minimal degree of Lasix to the status. The patient is nonverbal. The patient is on 100% on a beta facemasks. Does not look to be toxic at this point in time. HEAD: Normocephalic/atraumatic. EYES: Normal reaction of pupils, equal size. Conjunctiva pink, sclera white. NOSE: Clear with pink turbinates. THROAT: No erythema or exudates. NECK: No masses, no JVD, no thyroid enlargement, no adenopathy. CHEST: No chest wall deformity. Symmetrical expansion. LUNGS: Equal air entry with no crackles, wheeze, rhonchi or dullness. Diminished breath on the left compared to the right along with some bronchial breath sounds and crackles in the left lung base. CVS: Regular rate and rhythm, normal S1 and S2, no gallops, no murmurs, no rubs ABDOMEN: Soft, nontender. No hepatosplenomegaly, normal bowel sounds, no guarding or rigidity. EXTREMITIES: No clubbing, no edema, no cyanosis, 2+ pulses and upper and lower extremities. MUSCULOSKELETAL: Muscle strength and tone normal. SPINE: No scoliosis or deformity SKIN: No rashes CENTRAL NERVOUS SYSTEM: Poorly responsive, tachypneic, and respiratory distress. No focal deficits, tone is normal in all 4 extremities. - Labs CBC & Chem 7: 03/02/22 08:21 03/02/22 08:21 Labs: Abnormal Lab Results - Last 24 Hours (Table) 03/02/22 03/02/22 Range/Units 08:21 08:21 RBC 3.42 L (4.30-5.90) m/uL Hgb 9.8 L (13.0-17.5) gm/dL Hct 31.6 L (39.0-53.0) % MCHC 30.9 L (31.0-37.0) g/dL RDW 19.9 H (11.5-15.5) % Plt Count 135 L (150-450) k/uL Chloride 109 H (98-107) mmol/L BUN 8 L (9-20) mg/dL Creatinine 0.42 L (0.66-1.25) mg/dL Total Bilirubin <0.1 L (0.2-1.3) mg/dL Total Protein 6.2 L (6.3-8.2) g/dL Albumin 2.6 L (3.5-5.0) g/dL Microbiology - Last 24 Hours (Table) 02/27/22 09:30 Blood Culture - Preliminary Blood No Growth after 48 hours 02/27/22 09:47 Blood Culture - Preliminary Blood No Growth after 48 hours Assessment and Plan Plan: . Acute hypoxic respiratory failure related to acute pneumonia, possibly related to acute aspiration. COVID-19 PCR was negative. There is a recurrent event and the patient was Hospital as for left lung pneumonia back in November 2021 and he was treated and he was discharged home without any major diffic ulties. Currently is on partial nonrebreather facemask due to acute hypoxemic respiratory failure. He has extensive consolidation of the left lung. No significant leukocytosis. Note that the patient has a DNR/DNI CODE STATUS and this has been confirmed with the family. Today's evaluation, the patient remains on antibiotics. Hemodynamically stable although the blood pressure is soft and compared to yesterday. No significant leukocytosis and a cultures are all negative. No significant events overnight. Repeat chest x-ray we will obtain for tomorrow. . Aspiration, recurrent . Recent hospitalization for pneumonia and hypoxic respiratory failure . Seizure disorder . History of developmental delay . Patient is nonverbal at baseline . History of meningitis with brain injury at 7 weeks of age Plan We'll repeat chest x-ray in the morning If no improvement, will consider the CAT scan of the chest/possible bronchoscopy DNR/DNI CODE STATUS Clinically unchanged Keep Zosyn and vancomycin The patient has been weaned down to 12 L partial nonrebreather Blood work was noted Seizure precautions Aspiration precautions Keep the patient nothing by mouth for now His prognosis is quite poor Consider PEG tube if the patient recovers from this current bout of pneumonia.
--- NOTE | 2022-03-02 11:44 | P.PN ---
Subjective Progress Note Date: 03/02/22 Tolu Sánchez, is a 36-year-old male who presented to [facility] emergency room due to increased somnolence and shortness of breath. He was evaluated in the emergency room vital examination on presentation revealed a temperature of 97.3 pulse 101 respiration 22 blood pressure 115/68 pulse ox 98% on room air Laboratory data revealed a white blood count of 5.2 hemoglobin 11.2 platelet co unt 205 sodium 139 potassium 3.2 chloride 100 CO2 26 BUN 20 creatinine 0.48 Testing in the emergency room revealed chest x-ray done in the emergency room revealed large infiltrate and/or opacification with air bronchogram within the left lung, EKG done in the emergency room revealed sinus tachycardia with right ventricular hypertrophy. Patient was admitted to medical floor for further evaluation and treatment, he was started on IV antibiotics, pulmonary consultation was requested. On 02/28/2022 patient is resting in bed currently maintained on partial nonrebreather. Current vitals temp 97.6, pulse rate 72, respiratory rate 18 blood pressure 97/64 patient stating 98% on partial rebreather at 15 L. Patient remains on IV vancomycin. Infectious disease services have been consulted. Currently blood cell count 6.6. On 03/01/2022 patient remains on partial nonrebreather. Infectious disease and pulmonary services are following this session was held with family per infectious PEG tube placement. Vitals temp 97.4, heart rate 78, respiratory rate 16, blood pressure 100/60 patient satting 98% on partial rebreather 15 L On 03/02/2022 patient was seen and examined on the medical floor he is alert nonverbal in no apparent distress, nurse denies any events or any new complaints, patient is maintained on partial nonrebreather mask on 12 L his vital exam reveals a temperature of 97.4 pulse 67 respiration 18 blood pressure 124/68 pulse ox 96% laboratory data reveals a white blood count of 5.7 hemoglobin 9.8 platelet count 139 BUN is 8 creatinine 0.42 he remains on IV antibiotic Zosyn, pulmonary and infectious disease are following, repeat chest x-ray is ordered for tomorrow Objective - Vital Signs Vital signs: Vital Signs Temp 97.4 F L 03/02/22 03:45 Pulse 74 03/02/22 10:58 Resp 18 03/02/22 10:58 BP 124/68 03/02/22 08:54 Pulse Ox 96 03/02/22 08:54 FiO2 50 03/02/22 03:45 Intake & Output 03/01/22 03/02/22 03/02/22 18:59 06:59 18:59 Intake Total 650 300 Balance 650 300 Intake: Intake, IV Titration 650 300 Amount Piperacillin-Tazobactam 3 100 100 .375 gm In Sodium Chloride 0.9% 100 ml @ 25 mls/hr IVPB Q8HR [facility] Rx# :[id number] Sodium Chloride 0.9% 1, 550 200 000 ml @ 130 mls/hr IV . Q7H42M [facility] Rx#:[id number] Other: Voiding Method Diaper Diaper Diaper # Voids 1 1 1 # Bowel Movements 1 1 1 - Exam In general patient is somnolent responsive only to repeated stimuli HEENT head normocephalic and atraumatic Neck is supple no JVD no goiter no lymphadenopathy no carotid bruit Chest examination reveals a crackles in both lung galicia no wheezing Cardiac exam reveals regular heart sounds S1 and S2 no gallops no murmurs Abdomen is soft nontender no organomegaly with normal bowel sounds Extremity exam reveals no edema no cyanosis or clubbing Neurological examination reveals no gross focal deficits - Labs CBC & Chem 7: 03/02/22 08:21 03/02/22 08:21 Labs: Abnormal Lab Results - Last 24 Hours (Table) 03/02/22 03/02/22 Range/Units 08:21 08:21 RBC 3.42 L (4.30-5.90) m/uL Hgb 9.8 L (13.0-17.5) gm/dL Hct 31.6 L (39.0-53.0) % MCHC 30.9 L (31.0-37.0) g/dL RDW 19.9 H (11.5-15.5) % Plt Count 135 L (150-450) k/uL Metamyelocytes # (Man) 0.23 H (0) k/uL Myelocytes # (Manual) 0.23 H (0) k/uL Chloride 109 H (98-107) mmol/L BUN 8 L (9-20) mg/dL Creatinine 0.42 L (0.66-1.25) mg/dL Total Bilirubin <0.1 L (0.2-1.3) mg/dL Total Protein 6.2 L (6.3-8.2) g/dL Albumin 2.6 L (3.5-5.0) g/dL Microbiology - Last 24 Hours (Table) 02/27/22 09:30 Blood Culture - Preliminary Blood No Growth after 48 hours 02/27/22 09:47 Blood Culture - Preliminary Blood No Growth after 48 hours Assessment and Plan Plan: Acute pneumonia possibly related to aspiration pneumonia Acute hypoxic respiratory failure Previous episodes of aspiration pneumonia including recently in November 2021 Underlying history of developmental delay with severe physical and mental debility patient requires 24-hour care Underlying history of seizure disorder 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
[2022-03-03] MEDS: PIPERACILLIN-TAZOBACTAM 3.375 GM in SODIUM CHLORIDE 0.9% 100 ML IVPB SCH ×4 (00:24→23:48)
[2022-03-03] MEDS: SODIUM CHLORIDE 0.9% 1,000 ML IV SCH ×3 (05:43→20:20)
[2022-03-03] MEDS: DIVALPROEX SPRINKLE 125 MG CAP.SPRINK PO SCH ×2 (06:09→16:59)
[2022-03-03] MEDS: LORazepam 0.5 MG TAB PO SCH ×3 (06:09→17:02)
[2022-03-03] MEDS: risperiDONE 0.25 MG TAB PO SCH (06:10)
[2022-03-03] MEDS: TOPIRAMATE 15 MG PO SCH ×3 (06:10→17:13)
[2022-03-03] MEDS: IPRATROPIUM-ALBUTEROL 3 ML NEB INHALATION SCH ×4 (08:06→20:49)
[2022-03-03 08:22] LABS: Anisocytosis Slight; HCT 34.7 % (39.0-53.0); HGB 10.3 gm/dL (13.0-17.5); Hypochromasia Marked; MCH 27.6 pg (25.0-35.0); MCHC 29.7 g/dL (31.0-37.0); Mean Platelet Volume 7.8; Platelet Count 147 k/uL (150-450); RBC 3.73 m/uL (4.30-5.90); RDW 19.2 % (11.5-15.5); WBC 5.1 k/uL (3.8-10.6)
[2022-03-03 08:39] LABS: ALT 14 U/L (4-49); AST 20 U/L (17-59); African American GFR (CKD) >90 (>60 ml/min/1.73 sqM); Albumin 2.8 g/dL (3.5-5.0); Alkaline Phosphatase 104 U/L (38-126); Anion Gap 8 mmol/L; Blood Urea Nitrogen 6 mg/dL (9-20); Calcium 8.4 mg/dL (8.4-10.2); Carbon Dioxide 27 mmol/L (22-30); Chloride 106 mmol/L (98-107); Glucose 105 mg/dL (74-99); Non-African American GFR(CKD) >90 (>60 ml/min/1.73 sqM); Potassium 3.5 mmol/L (3.5-5.1); Sodium 141 mmol/L (137-145); Total Bilirubin 0.1 mg/dL (0.2-1.3); Total Protein 6.6 g/dL (6.3-8.2)
[2022-03-03 09:52] LABS: Band Neutrophils % 4 %; Eosinophils # (M) 0.05 k/uL (0-0.7); Lymphocytes # (M) 1.63 k/uL (1.0-4.8); Metamyelocytes # (M) 0.26 k/uL (0); Metamyelocytes % 5 %; Monocytes # (M) 0.41 k/uL (0-1.0); Myelocytes # (M) 0.26 k/uL (0); Myelocytes % 5 %; Neutrophils % (M) 47 %; Nucleated Red Blood Cells 0 /100 WBC (0-0); Total Cells Counted 200
[2022-03-03] MEDS: ENOXAPARIN 30 MG/0.3 ML SYRINGE SQ SCH (10:18)
--- NOTE | 2022-03-03 10:44 | XR ---
EXAMINATION TYPE: XR chest 1V DATE OF EXAM: 03/03/2022 COMPARISON: 03/01/2022 INDICATION: Pneumonia TECHNIQUE: Single frontal view of the chest is obtained. FINDINGS: The heart size is normal. The pulmonary vasculature is normal. Left lower lobe infiltrate is present. Correlate for pneumonia. This has improved from comparison. Th e left upper lung field has largely improved its aeration. IMPRESSION: 1. Improving left lung infiltrate. Consolidation remains at the left base. Continued follow-up for pn eumonia is recommended.
--- NOTE | 2022-03-03 12:13 | P.PN ---
Subjective Progress Note Date: 03/03/22 36-year-old patient was coming into the hospital because of a extensive left andrei ng pneumonia. The patient was noted to be more short of breath at [facility] home and hypoxic and for that reason he was brought into the hospital. He has had previous history of aspiration pneumonia as the patient has significant developmental delay and he has been aspirating food according to the family. During his last admission back in a November 2021, the patient was being considered for PEG tube insertion and the patient did not have the procedure done. During this time, the patient was found to be hypoxic with a pulse of 86% and he normally does not wear any oxygen. It is nonproductive cough. He was not looking toxic and he was not looking to have a labored breathing at time of admission. 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 The patient continues to live in a assisted. Note that a few members of the assisted were positive for COVID 19. The patient tested negative. The patient's chest x-ray shows scoliosis and extensive consolidation of the left lung. The right lung is relatively preserved. The patient during his last admission was kept in ICU and was supported briefly with the BiPAP and ultimately improved in the left lung pneumonia cleared. Cultures at that time were all negative. Currently, he is in the emergency department. The patient was given Rocephin and Zithromax and ultimately switched antibiotics to Zosyn and vancomycin. The blood work shows a white cell count of 5.2, R a normal, platelet count is normal at 205, the liver function tests are normal, there for an albumin is at 3.5 with a protein of 7.7. Troponins are negative, BNP level is at 143. Influenza screen was also negative. The patient is currently on 100% on a beta facemasks. Received a total of 2 L of IV fluid and currently receiving normal saline at rate of 130s is an hour. On today's evaluation of 02/28/2022, the father the bedside is telling me that the patient is slightly more lethargic compared to yesterday. The patient does not communicate. Upon stimulation, he was able to open up his eyes. He is breathing is nonlabored. He is on a on partial nonrebreather facemask and the patient's pulse ox is 98% at this point in time. His blood pressure was soft and 84/50 cm of water the patient remained continues to be on normal saline at the rate of 130 mL an hour. The blood work from today shows no significant leukocytosis. The white cell count 6.6 with a hemoglobin of 10 and a platelet count of 133. Electrodes are all within normal limits. Renal function stable. Cultures are negative for now. He remains on a combination of Zosyn and vancomycin. Patient was able to get some diet yesterday with assistance. Family is interested in a PEG tube insertion if he recovers from this acute event. 03/01/2022, the patient's condition is essentially the same as yesterday. Repeat chest x-ray was done and the patient was found to have still persistent consolidation of the left lung. The patient is being fed through family members. The patient remains on IV Zosyn and vancomycin. No seizure activity has been noted. Electrodes are stable. The white cell count is at 7.6 with a hemoglobin of 10.6. The patient is using a partial nonrebreather facemask and his current pulse ox 96% and his breathing is nonlabored at this point in time. 03/02/2022, condition essentially unchanged. The patient was brought down to 12 L partial nonrebreather facemask and the pulse ox is around 96%. Breathing remains nonlabored and the patient is hemodynamically stable. Labs are unchanged and the patient has a white count of 5.7 with a hemoglobin of 9.8 and a platelet count of 135. BUN is at 80 the creatinine 0.4 and sodium level is up to 144. Remains on IV Zosyn for now. 03/03/2022, the patient's chest x-ray showing improvement in the right lung consolidation. The patient remains on IV Zosyn. Clinically, the patient seems to be quite comfortable and his breathing is nonlabored. The white cell count at 5.0 with a hemoglobin of 10.3 and a platelet count of 147. Rest of the blood work and electrolytes are all within normal limits. The patient has been weaned down to 50% Ventimask and the partial nonrebreather facemask has been discontinued. No significant cough or sputum production. Objective - Vital Signs Vital signs: Vital Signs Temp 97.4 F L 03/02/22 20:50 Pulse 74 03/03/22 08:18 Resp 16 03/03/22 04:00 BP 111/72 03/03/22 04:00 Pulse Ox 99 03/03/22 04:00 FiO2 50 03/03/22 08:08 Intake & Output 03/02/22 03/03/22 03/03/22 18:59 06:59 18:59 Intake Total 300 Output Total 400 Balance 300 -400 Intake: Intake, IV Titration 300 Amount Piperacillin-Tazobactam 3 100 .375 gm In Sodium Chloride 0.9% 100 ml @ 25 mls/hr IVPB Q8HR [facility] Rx# :[id number] Sodium Chloride 0.9% 1, 200 000 ml @ 130 mls/hr IV . Q7H42M [facility] Rx#:[id number] Output: Urine 400 Other: Voiding Method Diaper Diaper External Catheter # Voids 2 # Bowel Movements 1 - Exam GENERAL EXAM: 36-year-old white male, with developmental delay, small statured, appears younger than stated age, in minimal degree of Lasix to the status. The patient is nonverbal. The patient is on 50% Ventimask HEAD: Normocephalic/atraumatic. EYES: Normal reaction of pupils, equal size. Conjunctiva pink, sclera white. NOSE: Clear with pink turbinates. THROAT: No erythema or exudates. NECK: No masses, no JVD, no thyroid enlargement, no adenopathy. CHEST: No chest wall deformity. Symmetrical expansion. LUNGS: Equal air entry with no crackles, wheeze, rhonchi or dullness. Diminished breath on the left compared to the right along with some bronchial breath sounds and crackles in the left lung base. CVS: Regular rate and rhythm, normal S1 and S2, no gallops, no murmurs, no rubs ABDOMEN: Soft, nontender. No hepatosplenomegaly, normal bowel sounds, no guarding or rigidity. EXTREMITIES: No clubbing, no edema, no cyanosis, 2+ pulses and upper and lower extremities. MUSCULOSKELETAL: Muscle strength and tone normal. SPINE: No scoliosis or deformity SKIN: No rashes CENTRAL NERVOUS SYSTEM: Poorly responsive, tachypneic, and respiratory distress. No focal deficits, tone is normal in all 4 extremities. - Labs CBC & Chem 7: 03/03/22 08:07 03/03/22 08:07 Labs: Abnormal Lab Results - Last 24 Hours (Table) 03/02/22 03/03/22 03/03/22 Range/Units 08:21 08:07 08:07 RBC 3.73 L (4.30-5.90) m/uL Hgb 10.3 L (13.0-17.5) gm/dL Hct 34.7 L (39.0-53.0) % MCHC 29.7 L (31.0-37.0) g/dL RDW 19.2 H (11.5-15.5) % Plt Count 147 L (150-450) k/uL Metamyelocytes # (Man) 0.23 H (0) k/uL Myelocytes # (Manual) 0.23 H (0) k/uL BUN 6 L (9-20) mg/dL Creatinine 0.38 L (0.66-1.25) mg/dL Glucose 105 H (74-99) mg/dL Total Bilirubin 0.1 L (0.2-1.3) mg/dL Albumin 2.8 L (3.5-5.0) g/dL Microbiology - Last 24 Hours (Table) 02/27/22 09:47 Blood Culture - Preliminary Blood No Growth after 72 hours 02/27/22 09:30 Blood Culture - Preliminary Blood No Growth after 72 hours Assessment and Plan Plan: . Acute hypoxic respiratory failure related to acute pneumonia, possibly related to acute aspiration. COVID-19 PCR was negative. There is a recurrent event and the patient was Hospital as for left lung pneumonia back in November 2021 and he was treated and he was discharged home without any major difficulties. Currently is on partial nonrebreather facemask due to acute hypoxemic respiratory failure. He has extensive consolidation of the left lung. No significant leukocytosis. Note that the patient has a DNR/DNI CODE STATUS and this has been confirmed with the family. Today's evaluation, the patient remains on antibiotics. The chest x-ray showing improvement in the right lung consolidation and there is improvement in aeration on the left and oxidation is also improved and the patient was taken off the partial nonrebreather and the patient is currently on a 50% Ventimask . Aspiration, recurrent . Recent hospitalization for pneumonia and hypoxic respiratory failure . Seizure disorder . History of developmental delay . Patient is nonverbal at baseline . History of meningitis with brain injury at 7 weeks of age Plan Chest x-ray from today showing improvement in left lung consolidation Patient has been weaned off the partial nonrebreather facemask DNR/DNI CODE STATUS Clinically unchanged Keep Zosyn Blood work was noted, everything is stable Seizure precautions Aspiration precautions Keep the patient nothing by mouth for now His prognosis is quite poor Consider PEG tube if the patient recovers from this current bout of pneumonia.
--- NOTE | 2022-03-03 13:09 | P.PN ---
Subjective Progress Note Date: 03/03/22 Tolu Sánchez, is a 36-year-old male who presented to [facility] emergency room due to increased somnolence and shortness of breath. He was evaluated in the emergency room vital examination on presentation revealed a temperature of 97.3 pulse 101 respiration 22 blood pressure 115/68 pulse ox 98% on room air Laboratory data revealed a white blood count of 5.2 hemoglobin 11.2 platelet co unt 205 sodium 139 potassium 3.2 chloride 100 CO2 26 BUN 20 creatinine 0.48 Testing in the emergency room revealed chest x-ray done in the emergency room revealed large infiltrate and/or opacification with air bronchogram within the left lung, EKG done in the emergency room revealed sinus tachycardia with right ventricular hypertrophy. Patient was admitted to medical floor for further evaluation and treatment, he was started on IV antibiotics, pulmonary consultation was requested. On 02/28/2022 patient is resting in bed currently maintained on partial nonrebreather. Current vitals temp 97.6, pulse rate 72, respiratory rate 18 blood pressure 97/64 patient stating 98% on partial rebreather at 15 L. Patient remains on IV vancomycin. Infectious disease services have been consulted. Currently blood cell count 6.6. On 03/01/2022 patient remains on partial nonrebreather. Infectious disease and pulmonary services are following this session was held with family per infectious PEG tube placement. Vitals temp 97.4, heart rate 78, respiratory rate 16, blood pressure 100/60 patient satting 98% on partial rebreather 15 L On 03/02/2022 patient was seen and examined on the medical floor he is alert nonverbal in no apparent distress, nurse denies any events or any new complaints, patient is maintained on partial nonrebreather mask on 12 L his vital exam reveals a temperature of 97.4 pulse 67 respiration 18 blood pressure 124/68 pulse ox 96% laboratory data reveals a white blood count of 5.7 hemoglobin 9.8 platelet count 139 BUN is 8 creatinine 0.42 he remains on IV antibiotic Zosyn, pulmonary and infectious disease are following, repeat chest x-ray is ordered for tomorrow On 03/03/2022 patient was seen and examined on the medical floor he is alert, nonverbal in no apparent distress vital examination reveals a temperature of 98 pulse 73 respiration 16 blood pressure 108/70 pulse ox 93% on Ventimask with FiO2 of 50% laboratory data reveals a white blood count of 5.1 hemoglobin 10.3 platelet count 147 BUN 6 creatinine 0.38 Objective - Vital Signs Vital signs: Vital Signs Temp 97.4 F L 03/02/22 20:50 Pulse 72 03/03/22 11:39 Resp 16 03/03/22 09:00 BP 108/70 03/03/22 09:00 Pulse Ox 93 L 03/03/22 09:00 FiO2 50 03/03/22 09:00 Intake & Output 03/02/22 03/03/22 03/03/22 18:59 06:59 18:59 Intake Total 300 Output Total 400 Balance 300 -400 Intake: Intake, IV Titration 300 Amount Piperacillin-Tazobactam 3 100 .375 gm In Sodium Chloride 0.9% 100 ml @ 25 mls/hr IVPB Q8HR [facility] Rx# :[id number] Sodium Chloride 0.9% 1, 200 000 ml @ 130 mls/hr IV . Q7H42M [facility] Rx#:[id number] Output: Urine 400 Other: Voiding Method Diaper Diaper External Catheter # Voids 2 # Bowel Movements 1 - Exam In general patient is somnolent responsive only to repeated stimuli HEENT head normocephalic and atraumatic Neck is supple no JVD no goiter no lymphadenopathy no carotid bruit Chest examination reveals a crackles in both lung galicia no wheezing Cardiac exam reveals regular heart sounds S1 and S2 no gallops no murmurs Abdomen is soft nontender no organomegaly with normal bowel sounds Extremity exam reveals no edema no cyanosis or clubbing Neurological examination reveals no gross focal deficits - Labs CBC & Chem 7: 03/03/22 08:07 03/03/22 08:07 Labs: Abnormal Lab Results - Last 24 Hours (Table) 03/03/22 03/03/22 Range/Units 08:07 08:07 RBC 3.73 L (4.30-5.90) m/uL Hgb 10.3 L (13.0-17.5) gm/dL Hct 34.7 L (39.0-53.0) % MCHC 29.7 L (31.0-37.0) g/dL RDW 19.2 H (11.5-15.5) % Plt Count 147 L (150-450) k/uL Metamyelocytes # (Man) 0.26 H (0) k/uL Myelocytes # (Manual) 0.26 H (0) k/uL BUN 6 L (9-20) mg/dL Creatinine 0.38 L (0.66-1.25) mg/dL Glucose 105 H (74-99) mg/dL Total Bilirubin 0.1 L (0.2-1.3) mg/dL Albumin 2.8 L (3.5-5.0) g/dL Microbiology - Last 24 Hours (Table) 02/27/22 09:47 Blood Culture - Preliminary Blood No Growth after 72 hours 02/27/22 09:30 Blood Culture - Preliminary Blood No Growth after 72 hours Assessment and Plan Plan: Acute pneumonia possibly related to aspiration pneumonia Acute hypoxic respiratory failure Previous episodes of aspiration pneumonia including recently in November 2021 Underlying history of developmental delay with severe physical and mental debility patient requires 24-hour care Underlying history of seizure disorder 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
[2022-03-04] MEDS: SODIUM CHLORIDE 0.9% 1,000 ML IV SCH ×2 (05:05→20:18)
[2022-03-04] MEDS: LORazepam 0.5 MG TAB PO SCH ×3 (06:06→15:14)
[2022-03-04] MEDS: DIVALPROEX SPRINKLE 125 MG CAP.SPRINK PO SCH ×2 (06:06→15:17)
[2022-03-04] MEDS: TOPIRAMATE 15 MG PO SCH ×2 (06:07→15:14)
[2022-03-04] MEDS: risperiDONE 0.25 MG TAB PO SCH (06:07)
[2022-03-04] MEDS: IPRATROPIUM-ALBUTEROL 3 ML NEB INHALATION SCH ×4 (08:19→19:55)
[2022-03-04] MEDS: ENOXAPARIN 30 MG/0.3 ML SYRINGE SQ SCH (08:30)
[2022-03-04] MEDS: PIPERACILLIN-TAZOBACTAM 3.375 GM in SODIUM CHLORIDE 0.9% 100 ML IVPB SCH ×3 (08:30→23:23)
--- NOTE | 2022-03-04 09:45 | P.PN ---
Subjective Progress Note Date: 03/04/22 Tolu Sánchez, is a 36-year-old male who presented to [facility] emergency room due to increased somnolence and shortness of breath. He was evaluated in the emergency room vital examination on presentation revealed a temperature of 97.3 pulse 101 respiration 22 blood pressure 115/68 pulse ox 98% on room air Laboratory data revealed a white blood count of 5.2 hemoglobin 11.2 platelet co unt 205 sodium 139 potassium 3.2 chloride 100 CO2 26 BUN 20 creatinine 0.48 Testing in the emergency room revealed chest x-ray done in the emergency room revealed large infiltrate and/or opacification with air bronchogram within the left lung, EKG done in the emergency room revealed sinus tachycardia with right ventricular hypertrophy. Patient was admitted to medical floor for further evaluation and treatment, he was started on IV antibiotics, pulmonary consultation was requested. On 02/28/2022 patient is resting in bed currently maintained on partial nonrebreather. Current vitals temp 97.6, pulse rate 72, respiratory rate 18 blood pressure 97/64 patient stating 98% on partial rebreather at 15 L. Patient remains on IV vancomycin. Infectious disease services have been consulted. Currently blood cell count 6.6. On 03/01/2022 patient remains on partial nonrebreather. Infectious disease and pulmonary services are following this session was held with family per infectious PEG tube placement. Vitals temp 97.4, heart rate 78, respiratory rate 16, blood pressure 100/60 patient satting 98% on partial rebreather 15 L On 03/02/2022 patient was seen and examined on the medical floor he is alert nonverbal in no apparent distress, nurse denies any events or any new complaints, patient is maintained on partial nonrebreather mask on 12 L his vital exam reveals a temperature of 97.4 pulse 67 respiration 18 blood pressure 124/68 pulse ox 96% laboratory data reveals a white blood count of 5.7 hemoglobin 9.8 platelet count 139 BUN is 8 creatinine 0.42 he remains on IV antibiotic Zosyn, pulmonary and infectious disease are following, repeat chest x-ray is ordered for tomorrow On 03/03/2022 patient was seen and examined on the medical floor he is alert, nonverbal in no apparent distress vital examination reveals a temperature of 98 pulse 73 respiration 16 blood pressure 108/70 pulse ox 93% on Ventimask with FiO2 of 50% laboratory data reveals a white blood count of 5.1 hemoglobin 10.3 platelet count 147 BUN 6 creatinine 0.38 On 03/04/2022 patient is resting comfortably in bed. Patient remains on Ventimask. Current vital signs temp 9070, pulse rate 87, respiratory rate 20, blood pressure 140/76. Patient remains on IV Zosyn pulmonary and infectious disease services are following Objective - Vital Signs Vital signs: Vital Signs Temp 97.8 F 03/04/22 08:27 Pulse 82 03/04/22 08:32 Resp 16 03/04/22 08:32 BP 140/76 03/04/22 08:27 Pulse Ox 97 03/04/22 08:27 FiO2 50 03/04/22 08:19 Intake & Output 03/03/22 03/04/22 03/04/22 18:59 06:59 18:59 Intake Total 100 100 Output Total 500 550 Balance -400 -550 100 Intake: Oral 100 100 Output: Urine 500 550 Other: Voiding Method Diaper Diaper External Catheter External Catheter # Voids 1 # Bowel Movements 1 - Exam In general patient is somnolent responsive only to repeated stimuli HEENT head normocephalic and atraumatic Neck is supple no JVD no goiter no lymphadenopathy no carotid bruit Chest examination reveals a crackles in both lung galicia no wheezing Cardiac exam reveals regular heart sounds S1 and S2 no gallops no murmurs Abdomen is soft nontender no organomegaly with normal bowel sounds Extremity exam reveals no edema no cyanosis or clubbing Neurological examination reveals no gross focal deficits - Labs CBC & Chem 7: 03/03/22 08:07 03/03/22 08:07 Labs: Abnormal Lab Results - Last 24 Hours (Table) 03/03/22 Range/Units 08:07 Metamyelocytes # (Man) 0.26 H (0) k/uL Myelocytes # (Manual) 0.26 H (0) k/uL Microbiology - Last 24 Hours (Table) 02/27/22 09:30 Blood Culture - Preliminary Blood No Growth after 96 hours 02/27/22 09:47 Blood Culture - Preliminary Blood No Growth after 96 hours Assessment and Plan Plan: Acute pneumonia possibly related to aspiration pneumonia Acute hypoxic respiratory failure Previous episodes of aspiration pneumonia including recently in November 2021 Underlying history of developmental delay with severe physical and mental debility patient requires 24-hour care Underlying history of seizure disorder Remote history of meningitis and unit aide with the brain injury At this time patient will be admitted to medical floor He was started on IV antibiotic Zosyn Home medications reviewed and reordered For DVT prophylaxis he is maintained on subcu Lovenox Prognosis is guarded CODE STATUS is DO NOT RESUSCITATE
[2022-03-04 10:45] LABS: Anisocytosis Slight; Basophils % (A) 0 %; Eosinophils # (A) 0.1 k/uL (0-0.7); Eosinophils % (A) 1 %; HCT 33.4 % (39.0-53.0); HGB 10.2 gm/dL (13.0-17.5); Hypochromasia Moderate; Lymphocytes # (A) 1.7 k/uL (1.0-4.8); Lymphocytes % (A) 24 %; MCH 28.1 pg (25.0-35.0); MCHC 30.6 g/dL (31.0-37.0); Mean Platelet Volume 7.8; Monocytes # (A) 0.6 k/uL (0-1.0); Monocytes % (A) 9 %; Neutrophils # (A) 4.7 k/uL (1.3-7.7); Neutrophils % (A) 65 %; Platelet Count 159 k/uL (150-450); RBC 3.63 m/uL (4.30-5.90); RDW 19.5 % (11.5-15.5); WBC 7.1 k/uL (3.8-10.6)
[2022-03-04 11:20] LABS: ALT 13 U/L (4-49); AST 23 U/L (17-59); African American GFR (CKD) >90 (>60 ml/min/1.73 sqM); Alkaline Phosphatase 113 U/L (38-126); Anion Gap 9 mmol/L; Blood Urea Nitrogen 5 mg/dL (9-20); Calcium 8.5 mg/dL (8.4-10.2); Carbon Dioxide 29 mmol/L (22-30); Chloride 106 mmol/L (98-107); Glucose 120 mg/dL (74-99); Non-African American GFR(CKD) >90 (>60 ml/min/1.73 sqM); Potassium 3.6 mmol/L (3.5-5.1); Sodium 144 mmol/L (137-145); Total Bilirubin <0.1 mg/dL (0.2-1.3); Total Protein 6.8 g/dL (6.3-8.2)
[2022-03-04 11:49] LABS: Poikilocytosis (M) Present; Toxic Granulation Present
--- NOTE | 2022-03-04 13:59 | P.PN ---
Subjective Progress Note Date: 03/04/22 Principal diagnosis: Chronic aspiration pneumonia. On today's evaluation of 02/28/2022, the father the bedside is telling me that the patient is slightly more lethargic compared to yesterday. The patient does not communicate. Upon stimulation, he was able to open up his eyes. He is breathing is nonlabored. He is on a on partial nonrebreather facemask and the patient's pulse ox is 98% at this point in time. His blood pressure was soft and 84/50 cm of water the patient remained continues to be on normal saline at the rate of 130 mL an hour. The blood work from today shows no significant leukocytosis. The white cell count 6.6 with a hemoglobin of 10 and a platelet count of 133. Electrodes are all within normal limits. Renal function stable. Cultures are negative for now. He remains on a combination of Zosyn and vancomycin. Patient was able to get some diet yesterday with assistance. Family is interested in a PEG tube insertion if he recovers from this acute event. 03/01/2022, the patient's condition is essentially the same as yesterday. Repeat chest x-ray was done and the patient was found to have still persistent consolidation of the left lung. The patient is being fed through family members. The patient remains on IV Zosyn and vancomycin. No seizure activity has been noted. Electrodes are stable. The white cell count is at 7.6 with a hemoglobin of 10.6. The patient is using a partial nonrebreather facemask and his current pulse ox 96% and his breathing is nonlabored at this point in time. 03/02/2022, condition essentially unchanged. The patient was brought down to 12 L partial nonrebreather facemask and the pulse ox is around 96%. Breathing remains nonlabored and the patient is hemodynamically stable. Labs are unchanged and the patient has a white count of 5.7 with a hemoglobin of 9.8 and a platelet count of 135. BUN is at 80 the creatinine 0.4 and sodium level is up to 144. Remains on IV Zosyn for now. 03/03/2022, the patient's chest x-ray showing improvement in the right lung consolidation. The patient remains on IV Zosyn. Clinically, the patient seems to be quite comfortable and his breathing is nonlabored. The white cell count at 5.0 with a hemoglobin of 10.3 and a platelet count of 147. Rest of the blood work and electrolytes are all within normal limits. The patient has been weaned down to 50% Ventimask and the partial nonrebreather facemask has been discontinued. No significant cough or sputum production. Progress note dated 03/04/2022. The patient's most recent chest x-ray does show improvement in the opacity in the left lung. The patient's mother is in agreement for placement of a PEG tu be. Surgery will be consulted. I did explain the procedure to her. Laboratory data includes a white count 7.1, inguinal him 10.2, hematocrit 33.4, and a platelet count of 159,000. Sodium, potassium, chloride, CO2, anion gap, are all normal. BUN was 5 with a creatinine 0.42. Albumin is 3. Chest x-ray from March 03 of show improvement. The patient continues on Zosyn. Objective - Vital Signs Vital signs: Vital Signs Temp 95.8 F L 03/04/22 12:00 Pulse 75 03/04/22 12:06 Resp 16 03/04/22 12:06 BP 117/58 03/04/22 12:00 Pulse Ox 96 03/04/22 12:00 FiO2 50 03/04/22 12:00 Intake & Output 03/03/22 03/04/22 03/04/22 18:59 06:59 18:59 Intake Total 100 100 Output Total 500 550 Balance -400 -550 100 Weight 47.627 kg Intake: Oral 100 100 Output: Urine 500 550 Other: Voiding Method Diaper Diaper Diaper External Catheter External Catheter External Catheter # Voids 1 # Bowel Movements 1 - Exam No acute distress, oriented 3. The patient is currently wearing a Ventimask. Saturations are 96%. HEENT examination is grossly unremarkable. Neck supple. Full range of motion. No adenopathy thyromegaly or neck vein distention. Cardiovascular examination reveals regular rhythm rate. S1-S2 normal. No S3 or S4. No discernible murmur noted. Heart sounds are distant. Heart rate 75 bpm. Lungs reveal mostly clear breath sounds. Coarse rhonchi noted particularly in the left. Scattered crackles on the right. No wheezes. Breath sounds are diminished throughout. Abdomen soft bowel sounds are heard. No masses or tenderness. Extremities are intact. No cyanosis clubbing or edema. Skin is without rash or lesion. Neurologic examination is difficult to evaluate given his developmental delay. - Labs CBC & Chem 7: 03/04/22 10:06 03/04/22 10:06 Labs: Abnormal Lab Results - Last 24 Hours (Table) 03/04/22 03/04/22 Range/Units 10:06 10:06 RBC 3.63 L (4.30-5.90) m/uL Hgb 10.2 L (13.0-17.5) gm/dL Hct 33.4 L (39.0-53.0) % MCHC 30.6 L (31.0-37.0) g/dL RDW 19.5 H (11.5-15.5) % BUN 5 L (9-20) mg/dL Creatinine 0.42 L (0.66-1.25) mg/dL Glucose 120 H (74-99) mg/dL Total Bilirubin <0.1 L (0.2-1.3) mg/dL Albumin 3.0 L (3.5-5.0) g/dL Microbiology - Last 24 Hours (Table) 02/27/22 09:47 Blood Culture - Preliminary Blood No Growth after 120 hours 02/27/22 09:30 Blood Culture - Preliminary Blood No Growth after 120 hours Assessment and Plan Assessment: Acute hypoxemic respiratory failure, secondary to aspiration pneumonia. Recurrent aspiration. Recent hospitalization for pneumonia and hypoxemic respiratory failure. History of seizure disorder. History of developmental delay. Patient is nonverbal. Previous history of meningitis with brain injury, as an infant. Plan: Plan dated 03/04/2022. The patient's mother does agree for PEG tube placement. The patient is a DO NOT RESUSCITATE patient. The patient remains on Zosyn. The patient should be on aspiration precautions, with head of bed elevated at all times. We will continue to follow. Prognosis is guarded. The patient remains on substantial amounts of oxygen therapy. We will continue to follow make recommendations where appropriate. Time with Patient: Less than 30
--- NOTE | 2022-03-04 16:25 | P.GSCN ---
History of Present Illness Consult date: 03/04/22 Reason for Consult: Recurrent aspiration pneumonia History of present illness: 36-year-old male with cerebral palsy. Patient hospitalized with recurrent aspiration pneumonia. We were consulted for PEG tube placement. Patient is currently on a pure diet after being seen by speech. He apparently has failed modifications in his diet however as an outpatient at his [facility]. Patient's mother is the guardian. 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 History of Any Multi-Drug Resistant Organisms: None Reported Past Surgical History: No Surgical Hx Reported Additional Past Anesthesia/Blood Transfusion Reaction / Comm: Pt has never had surgery. Past Psychological History: No Psychological Hx Reported Smoking Status: Never smoker Past Alcohol Use History: None Reported Past Drug Use History: None Reported - Past Family History Mother Family Medical History: No Reported History Father Additional Family Medical History / Comment(s): Father has some joint problems and has had bilateral hip and knee replacements.spondolytis Medications and Allergies Home Medications Medication Instructions Recorded Confirmed Type Divalproex Sprinkle [Depakote 750 mg PO BID@0600,1630 12/23/16 02/27/22 History Sprinkle] LORazepam [Ativan] 1.5 mg PO TID@0600,1000,1630 12/23/16 02/27/22 History Topiramate [Topamax] 30 mg PO BID@0600,1630 12/23/16 02/27/22 History Acetaminophen Tab [Tylenol] 1,000 mg PO Q6H PRN 11/18/21 02/27/22 History Ibuprofen [Motrin Ib] 200 mg PO Q6H PRN 11/18/21 02/27/22 History Magnesium Hydroxide [Milk of 2,400 mg PO DAILY PRN 11/18/21 02/27/22 History Magnesia] diphenhydrAMINE ELIXIR [Benadryl 25 mg PO Q6H PRN 11/18/21 02/27/22 History Elixir] diphenhydrAMINE [Benadryl] 25 mg PO DIRECTED PRN 11/18/21 02/27/22 History guaiFENesin-DM 100-10MG/5ML 10 ml PO Q4H PRN 11/18/21 02/27/22 History [Robitussin DM] risperiDONE [RisperDAL] 0.25 mg PO DAILY@0600 11/18/21 02/27/22 History Cholecalciferol [Vitamin D3 (25 25 mcg PO DAILY@0600 02/27/22 02/27/22 History Mcg = 1000 Iu)] Ferrous Sulfate [Feosol] 325 mg PO DAILY@1630 02/27/22 02/27/22 History Allergies Allergy/AdvReac Type Severity Reaction Status Date / Time No Known Allergies Allergy Verified 02/27/22 08:52 Surgical - Exam Vital Signs Temp Pulse Resp BP Pulse Ox 97.3 F L 101 H 22 115/68 98 02/27/22 08:36 02/27/22 08:36 02/27/22 08:36 02/27/22 08:36 02/27/22 08:36 Physical exam: General: Well-developed, well-nourished HEENT: Normocephalic, sclerae nonicteric Abdomen: Nontender, nondistended Extremities: No edema, contractures noted Neuro: Alert Results - Labs 03/04/22 10:06 03/04/22 10:06 Abnormal Lab Results - Last 24 Hours (Table) 03/04/22 03/04/22 Range/Units 10:06 10:06 RBC 3.63 L (4.30-5.90) m/uL Hgb 10.2 L (13.0-17.5) gm/dL Hct 33.4 L (39.0-53.0) % MCHC 30.6 L (31.0-37.0) g/dL RDW 19.5 H (11.5-15.5) % BUN 5 L (9-20) mg/dL Creatinine 0.42 L (0.66-1.25) mg/dL Glucose 120 H (74-99) mg/dL Total Bilirubin <0.1 L (0.2-1.3) mg/dL Albumin 3.0 L (3.5-5.0) g/dL Microbiology - Last 24 Hours (Table) 02/27/22 09:47 Blood Culture - Preliminary Blood No Growth after 120 hours 02/27/22 09:30 Blood Culture - Preliminary Blood No Growth after 120 hours Diabetes panel 03/04/22 Range/Units 10:06 Sodium 144 (137-145) mmol/L Potassium 3.6 (3.5-5.1) mmol/L Chloride 106 (98-107) mmol/L Carbon Dioxide 29 (22-30) mmol/L BUN 5 L (9-20) mg/dL Creatinine 0.42 L (0.66-1.25) mg/dL Glucose 120 H (74-99) mg/dL Calcium 8.5 (8.4-10.2) mg/dL AST 23 (17-59) U/L ALT 13 (4-49) U/L Alkaline Phosphatase 113 (38-126) U/L Total Protein 6.8 (6.3-8.2) g/dL Albumin 3.0 L (3.5-5.0) g/dL Calcium panel 03/04/22 Range/Units 10:06 Calcium 8.5 (8.4-10.2) mg/dL Albumin 3.0 L (3.5-5.0) g/dL Pituitary panel 03/04/22 Range/Units 10:06 Sodium 144 (137-145) mmol/L Potassium 3.6 (3.5-5.1) mmol/L Chloride 106 (98-107) mmol/L Carbon Dioxide 29 (22-30) mmol/L BUN 5 L (9-20) mg/dL Creatinine 0.42 L (0.66-1.25) mg/dL Glucose 120 H (74-99) mg/dL Calcium 8.5 (8.4-10.2) mg/dL Adrenal panel 03/04/22 Range/Units 10:06 Sodium 144 (137-145) mmol/L Potassium 3.6 (3.5-5.1) mmol/L Chloride 106 (98-107) mmol/L Carbon Dioxide 29 (22-30) mmol/L BUN 5 L (9-20) mg/dL Creatinine 0.42 L (0.66-1.25) mg/dL Glucose 120 H (74-99) mg/dL Calcium 8.5 (8.4-10.2) mg/dL Total Bilirubin <0.1 L (0.2-1.3) mg/dL AST 23 (17-59) U/L ALT 13 (4-49) U/L Alkaline Phosphatase 113 (38-126) U/L Total Protein 6.8 (6.3-8.2) g/dL Albumin 3.0 L (3.5-5.0) g/dL Assessment and Plan (1) Aspiration pneumonia Narrative/Plan: 36-year-old male with recurrent aspiration pneumonia. PEG tube procedure discussed in detail with the patient's mother by phone. Apparently they have been considering PEG tube placement for the last few months. They would like to proceed. Risks of bleeding, infection, catheter malfunction and misplacement, bowel injury, inability to place catheter discussed. She understands and wishes to proceed. This will be arranged on . Current Visit: Yes Status: Acute Code(s): J69.0 - PNEUMONITIS DUE TO IN HALATION OF FOOD AND VOMIT SNOMED Code(s): 048639704
[2022-03-05] MEDS: SODIUM CHLORIDE 0.9% 1,000 ML IV SCH ×4 (06:32→21:35)
[2022-03-05] MEDS: DIVALPROEX SPRINKLE 125 MG CAP.SPRINK PO SCH ×2 (06:34→17:10)
[2022-03-05] MEDS: risperiDONE 0.25 MG TAB PO SCH (06:34)
[2022-03-05] MEDS: TOPIRAMATE 15 MG PO SCH ×2 (06:34→17:11)
[2022-03-05] MEDS: LORazepam 0.5 MG TAB PO SCH ×3 (06:34→17:10)
--- NOTE | 2022-03-05 07:06 | P.PN ---
Subjective Progress Note Date: 03/02/22 Principal diagnosis: Recurrent aspiration pneumonia Patient is a 36 year old male with mental and developmental delay admitted to the hospital with increasing shortness of breath and concerning for extensive left-sided pneumonia likely aspiration etiology. On today's evaluation that is 03/02/2022, patient remains to be afebrile the patient is breathing comfortably on a simple mask hemodynamically stable no vomiting or diarrhea reported by the nursing staff Objective - Vital Signs Vital signs: Vital Signs Temp 97.4 F L 03/02/22 03:45 Pulse 81 03/02/22 14:27 Resp 18 03/02/22 14:27 BP 122/62 03/02/22 13:02 Pulse Ox 96 03/02/22 13:02 FiO2 50 03/02/22 03:45 Intake & Output 03/01/22 03/02/22 03/02/22 18:59 06:59 18:59 Intake Total 650 300 Balance 650 300 Intake: Intake, IV Titration 650 300 Amount Piperacillin-Tazobactam 3 100 100 .375 gm In Sodium Chloride 0.9% 100 ml @ 25 mls/hr IVPB Q8HR [facility] Rx# :[id number] Sodium Chloride 0.9% 1, 550 200 000 ml @ 130 mls/hr IV . Q7H42M [facility] Rx#:[id number] Other: Voiding Method Diaper Diaper Diaper # Voids 1 1 1 # Bowel Movements 1 1 1 - Exam GENERAL DESCRIPTION: Middle-aged male lying in bed in no distress RESPIRATORY SYSTEM: Unlabored breathing , coarse Bilaterally HEART: S1 S2 regular rate and rhythm , ABDOMEN: Soft , no tenderness EXTREMITIES: No edema feet - Labs CBC & Chem 7: 03/04/22 10:06 03/04/22 10:06 Labs: Abnormal Lab Results - Last 24 Hours (Table) 03/02/22 03/02/22 Range/Units 08:21 08:21 RBC 3.42 L (4.30-5.90) m/uL Hgb 9.8 L (13.0-17.5) gm/dL Hct 31.6 L (39.0-53.0) % MCHC 30.9 L (31.0-37.0) g/dL RDW 19.9 H (11.5-15.5) % Plt Count 135 L (150-450) k/uL Metamyelocytes # (Man) 0.23 H (0) k/uL Myelocytes # (Manual) 0.23 H (0) k/uL Chloride 109 H (98-107) mmol/L BUN 8 L (9-20) mg/dL Creatinine 0.42 L (0.66-1.25) mg/dL Total Bilirubin <0.1 L (0.2-1.3) mg/dL Total Protein 6.2 L (6.3-8.2) g/dL Albumin 2.6 L (3.5-5.0) g/dL Microbiology - Last 24 Hours (Table) 02/27/22 09:47 Blood Culture - Preliminary Blood No Growth after 72 hours 02/27/22 09:30 Blood Culture - Preliminary Blood No Growth after 72 hours Assessment and Plan (1) Pneumonia Current Visit: Yes Status: Acute Code(s): J18.9 - PNEUMONIA, UNSPECIFIED ORGANISM SNOMED Code(s): 603773328 Plan: 1patient presented to hospital with increasing shortness of breath with evidence of extensive pneumonia on the left lung likely secondary to aspiration in this patient with underlying mental impairment. 2patient will benefit from PEG tube placement to decrease risk of recurrent aspiration pneumonia , blood culture negative sputum could not be collected 3 patient to continue with Zosyn and monitor clinical course closely Time with Patient: Less than 30
--- NOTE | 2022-03-05 07:08 | P.PN ---
Subjective Progress Note Date: 03/03/22 Principal diagnosis: Recurrent aspiration pneumonia Patient is a 36 year old male with mental and developmental delay admitted to the hospital with increasing shortness of breath and concerning for extensive left-sided pneumonia likely aspiration etiology. On today's evaluation that is 03/03/2022, patient continues to be afebrile the patient is breathing comfortably on a simple mask, the patient is hemodynamically stable no vomiting or diarrhea reported by the nursing staff Objective - Vital Signs Vital signs: Vital Signs Temp 95.8 F L 03/03/22 16:00 Pulse 73 03/03/22 20:59 Resp 18 03/03/22 16:00 BP 126/74 03/03/22 16:00 Pulse Ox 94 L 03/03/22 16:00 FiO2 50 03/03/22 20:49 Intake & Output 03/03/22 03/03/22 03/04/22 06:59 18:59 06:59 Intake Total 100 Output Total 400 500 Balance -400 -400 Intake: Oral 100 Output: Urine 400 500 Other: Voiding Method Diaper Diaper External Catheter External Catheter # Voids 1 - Exam GENERAL DESCRIPTION: Middle-aged male lying in bed in no distress RESPIRATORY SYSTEM: Unlabored breathing , coarse Bilaterally HEART: S1 S2 regular rate and rhythm , ABDOMEN: Soft , no tenderness EXTREMITIES: No edema feet - Labs CBC & Chem 7: 03/04/22 10:06 03/04/22 10:06 Labs: Abnormal Lab Results - Last 24 Hours (Table) 03/03/22 03/03/22 Range/Units 08:07 08:07 RBC 3.73 L (4.30-5.90) m/uL Hgb 10.3 L (13.0-17.5) gm/dL Hct 34.7 L (39.0-53.0) % MCHC 29.7 L (31.0-37.0) g/dL RDW 19.2 H (11.5-15.5) % Plt Count 147 L (150-450) k/uL Metamyelocytes # (Man) 0.26 H (0) k/uL Myelocytes # (Manual) 0.26 H (0) k/uL BUN 6 L (9-20) mg/dL Creatinine 0.38 L (0.66-1.25) mg/dL Glucose 105 H (74-99) mg/dL Total Bilirubin 0.1 L (0.2-1.3) mg/dL Albumin 2.8 L (3.5-5.0) g/dL Microbiology - Last 24 Hours (Table) 02/27/22 09:30 Blood Culture - Preliminary Blood No Growth after 96 hours 02/27/22 09:47 Blood Culture - Preliminary Blood No Growth after 96 hours Assessment and Plan (1) Pneumonia Current Visit: Yes Status: Acute Code(s): J18.9 - PNEUMONIA, UNSPECIFIED ORGANISM SNOMED Code(s): 450076325 Plan: 1patient presented to hospital with increasing shortness of breath with evidence of extensive pneumonia on the left lung likely secondary to aspiration in this patient with underlying mental impairment. 2patient will benefit from PEG tube placement to decrease risk of recurrent aspiration pneumonia , blood culture negative sputum could not be collected 3 patient has clinically responded to Zosyn and will be continued Time with Patient: Less than 30
--- NOTE | 2022-03-05 07:09 | P.PN ---
Subjective Progress Note Date: 03/04/22 Principal diagnosis: Recurrent aspiration pneumonia Patient is a 36 year old male with mental and developmental delay admitted to the hospital with increasing shortness of breath and concerning for extensive left-sided pneumonia likely aspiration etiology. On today's evaluation that is 03/04/2022, patient remains to be afebrile the patient is breathing comfortably on a nasal cannula oxygen, the patient is hemodynamically stable no vomiting or diarrhea reported by the nursing staff, patient could not provide any history Objective - Vital Signs Vital signs: Vital Signs Temp 95.8 F L 03/04/22 12:00 Pulse 75 03/04/22 12:06 Resp 16 03/04/22 12:06 BP 117/58 03/04/22 12:00 Pulse Ox 96 03/04/22 12:00 FiO2 50 03/04/22 12:00 Intake & Output 03/03/22 03/04/22 03/04/22 18:59 06:59 18:59 Intake Total 100 100 Output Total 500 550 Balance -400 -550 100 Intake: Oral 100 100 Output: Urine 500 550 Other: Voiding Method Diaper Diaper Diaper External Catheter External Catheter External Catheter # Voids 1 # Bowel Movements 1 - Exam GENERAL DESCRIPTION: Middle-aged male lying in bed in no distress RESPIRATORY SYSTEM: Unlabored breathing , coarse Bilaterally HEART: S1 S2 regular rate and rhythm , ABDOMEN: Soft , no tenderness EXTREMITIES: No edema feet - Labs CBC & Chem 7: 03/04/22 10:06 03/04/22 10:06 Labs: Abnormal Lab Results - Last 24 Hours (Table) 03/04/22 03/04/22 Range/Units 10:06 10:06 RBC 3.63 L (4.30-5.90) m/uL Hgb 10.2 L (13.0-17.5) gm/dL Hct 33.4 L (39.0-53.0) % MCHC 30.6 L (31.0-37.0) g/dL RDW 19.5 H (11.5-15.5) % BUN 5 L (9-20) mg/dL Creatinine 0.42 L (0.66-1.25) mg/dL Glucose 120 H (74-99) mg/dL Total Bilirubin <0.1 L (0.2-1.3) mg/dL Albumin 3.0 L (3.5-5.0) g/dL Microbiology - Last 24 Hours (Table) 02/27/22 09:47 Blood Culture - Preliminary Blood No Growth after 120 hours 02/27/22 09:30 Blood Culture - Preliminary Blood No Growth after 120 hours Assessment and Plan (1) Pneumonia Current Visit: Yes Status: Acute Code(s): J18.9 - PNEUMONIA, UNSPECIFIED ORGANISM SNOMED Code(s): 445946835 Plan: 1patient presented to hospital with increasing shortness of breath with evidence of extensive pneumonia on the left lung likely secondary to aspiration in this patient with underlying mental impairment. 2patient will benefit from PEG tube placement to decrease risk of recurrent aspiration pneumonia , blood culture negative sputum could not be collected 3 patient has clinically responded to Zosyn which will be continued 4general surgery has been consulted for possible PEG tube placement and mother at the bedside questions were answered Time with Patient: Less than 30
[2022-03-05] MEDS: IPRATROPIUM-ALBUTEROL 3 ML NEB INHALATION SCH ×4 (08:44→20:05)
[2022-03-05 09:48] LABS: Anisocytosis Slight; HCT 34.4 % (39.0-53.0); HGB 10.6 gm/dL (13.0-17.5); Hypochromasia Marked; MCH 28.2 pg (25.0-35.0); MCHC 30.7 g/dL (31.0-37.0); Mean Platelet Volume 7.4; Platelet Count 186 k/uL (150-450); RBC 3.74 m/uL (4.30-5.90); RDW 19.7 % (11.5-15.5); WBC 8.4 k/uL (3.8-10.6)
[2022-03-05 10:08] LABS: ALT 13 U/L (4-49); AST 29 U/L (17-59); African American GFR (CKD) >90 (>60 ml/min/1.73 sqM); Albumin 3.2 g/dL (3.5-5.0); Alkaline Phosphatase 125 U/L (38-126); Anion Gap 8 mmol/L; Blood Urea Nitrogen 4 mg/dL (9-20); Calcium 8.9 mg/dL (8.4-10.2); Carbon Dioxide 27 mmol/L (22-30); Chloride 107 mmol/L (98-107); Glucose 92 mg/dL (74-99); Non-African American GFR(CKD) >90 (>60 ml/min/1.73 sqM); Potassium 4.1 mmol/L (3.5-5.1); Sodium 142 mmol/L (137-145); Total Bilirubin 0.1 mg/dL (0.2-1.3); Total Protein 7.1 g/dL (6.3-8.2)
[2022-03-05] MEDS: PIPERACILLIN-TAZOBACTAM 3.375 GM in SODIUM CHLORIDE 0.9% 100 ML IVPB SCH ×3 (10:36→23:33)
[2022-03-05] MEDS: ENOXAPARIN 30 MG/0.3 ML SYRINGE SQ SCH (10:37)
--- NOTE | 2022-03-05 11:50 | P.PN ---
Subjective Progress Note Date: 03/05/22 Principal diagnosis: Chronic aspiration pneumonia. On today's evaluation of 02/28/2022, the father the bedside is telling me that the patient is slightly more lethargic compared to yesterday. The patient does not communicate. Upon stimulation, he was able to open up his eyes. He is breathing is nonlabored. He is on a on partial nonrebreather facemask and the patient's pulse ox is 98% at this point in time. His blood pressure was soft and 84/50 cm of water the patient remained continues to be on normal saline at the rate of 130 mL an hour. The blood work from today shows no significant leukocytosis. The white cell count 6.6 with a hemoglobin of 10 and a platelet count of 133. Electrodes are all within normal limits. Renal function stable. Cultures are negative for now. He remains on a combination of Zosyn and vancomycin. Patient was able to get some diet yesterday with assistance. Family is interested in a PEG tube insertion if he recovers from this acute event. 03/01/2022, the patient's condition is essentially the same as yesterday. Repeat chest x-ray was done and the patient was found to have still persistent consolidation of the left lung. The patient is being fed through family members. The patient remains on IV Zosyn and vancomycin. No seizure activity has been noted. Electrodes are stable. The white cell count is at 7.6 with a hemoglobin of 10.6. The patient is using a partial nonrebreather facemask and his current pulse ox 96% and his breathing is nonlabored at this point in time. 03/02/2022, condition essentially unchanged. The patient was brought down to 12 L partial nonrebreather facemask and the pulse ox is around 96%. Breathing remains nonlabored and the patient is hemodynamically stable. Labs are unchanged and the patient has a white count of 5.7 with a hemoglobin of 9.8 and a platelet count of 135. BUN is at 80 the creatinine 0.4 and sodium level is up to 144. Remains on IV Zosyn for now. 03/03/2022, the patient's chest x-ray showing improvement in the right lung consolidation. The patient remains on IV Zosyn. Clinically, the patient seems to be quite comfortable and his breathing is nonlabored. The white cell count at 5.0 with a hemoglobin of 10.3 and a platelet count of 147. Rest of the blood work and electrolytes are all within normal limits. The patient has been weaned down to 50% Ventimask and the partial nonrebreather facemask has been discontinued. No significant cough or sputum production. Progress note dated 03/04/2022. The patient's most recent chest x-ray does show improvement in the opacity in the left lung. The patient's mother is in agreement for placement of a PEG tu be. Surgery will be consulted. I did explain the procedure to her. Laboratory data includes a white count 7.1, inguinal him 10.2, hematocrit 33.4, and a platelet count of 159,000. Sodium, potassium, chloride, CO2, anion gap, are all normal. BUN was 5 with a creatinine 0.42. Albumin is 3. Chest x-ray from March 03 of show improvement. The patient continues on Zosyn. Progress note dated 03/05/2022. The patient is to be scheduled for a PEG tube placement. The patient does suffer from chronic aspiration. We did speak to the patient's mother yesterday. Currently, the patient's resting comfortably. The patient is currently on a 50% Venturi mask. White count 8.4, hemoglobin 10.6, hematocrit 34.4, and platelet count 186,000. Sodium 142, potassium 4.1, chlorides 107, CO2 27, BUN 4, creatinine 0.42. Albumin is 3.2. Blood cultures are currently negative. Objective - Vital Signs Vital signs: Vital Signs Temp 98 F 03/05/22 08:00 Pulse 85 03/05/22 08:55 Resp 16 03/05/22 08:00 BP 113/63 03/05/22 08:00 Pulse Ox 97 03/05/22 08:44 FiO2 50 03/05/22 08:44 Intake & Output 03/04/22 03/05/22 03/05/22 18:59 06:59 18:59 Intake Total 300 250 Output Total 500 Balance -200 250 Weight 47.627 kg Intake: Intake, IV Titration 250 Amount Sodium Chloride 0.9% 1, 250 000 ml @ 130 mls/hr IV . Q7H42M [facility] Rx#:[id number] Oral 300 Output: Urine 500 Other: Voiding Method Diaper Diaper External Catheter External Catheter # Voids 2 # Bowel Movements 2 1 - Exam No acute distress, oriented 3. The patient is currently wearing a Ventimask. Saturations are 97%. HEENT examination is grossly unremarkable. Neck supple. Full range of motion. No adenopathy thyromegaly or neck vein distention. Cardiovascular examination reveals regular rhythm rate. S1-S2 normal. No S3 or S4. No discernible murmur noted. Heart sounds are distant. Heart rate 85 bpm. Lungs reveal mostly clear breath sounds. Coarse rhonchi noted particularly in the left. Scattered crackles on the right. No wheezes. Breath sounds are diminished throughout. Abdomen soft bowel sounds are heard. No masses or tenderness. Extremities are intact. No cyanosis clubbing or edema. Skin is without rash or lesion. Neurologic examination is difficult to evaluate given his developmental delay. - Labs CBC & Chem 7: 03/05/22 09:08 03/05/22 09:08 Labs: Abnormal Lab Results - Last 24 Hours (Table) 03/05/22 03/05/22 Range/Units 09:08 09:08 RBC 3.74 L (4.30-5.90) m/uL Hgb 10.6 L (13.0-17.5) gm/dL Hct 34.4 L (39.0-53.0) % MCHC 30.7 L (31.0-37.0) g/dL RDW 19.7 H (11.5-15.5) % BUN 4 L (9-20) mg/dL Creatinine 0.42 L (0.66-1.25) mg/dL Total Bilirubin 0.1 L (0.2-1.3) mg/dL Albumin 3.2 L (3.5-5.0) g/dL Microbiology - Last 24 Hours (Table) 02/27/22 09:47 Blood Culture - Preliminary Blood No Growth after 120 hours 02/27/22 09:30 Blood Culture - Preliminary Blood No Growth after 120 hours Assessment and Plan Assessment: Acute hypoxemic respiratory failure, secondary to aspiration pneumonia. Recurrent aspiration, with anticipation of PEG tube placement in the near future. Recent hospitalization for pneumonia and hypoxemic respiratory failure. History of seizure disorder. History of developmental delay. Patient is nonverbal. Previous history of meningitis with brain injury, as an . Plan: Plan dated 03/04/2022. The patient's mother does agree for PEG tube placement. The patient is a DO NOT RESUSCITATE patient. The patient remains on Zosyn. The patient should be on aspiration precautions, with head of bed elevated at all times. We will continue to follow. Prognosis is guarded. The patient remains on substantial amounts of oxygen therapy. We will continue to follow make recommendations where appropriate. Plan dated 03/05/2022. The patient will have a PEG tube placed, in the near future. We discussed this with the patient's mother, and the surgeon. Labs, x-rays, and medications all reviewed. Overall prognosis remains guarded. The patient should be an aspiration precautions. We will continue to follow make recommendations where appropriate. The patient is a DO NOT RESUSCITATE patient. I believe that to be appropriate. Time with Patient: Less than 30
--- NOTE | 2022-03-05 13:03 | P.PN ---
Subjective Progress Note Date: 03/05/22 CHIEF COMPLAINT: Recurrent aspiration pneumonia HISTORY OF PRESENT ILLNESS: Patient lying in bed comfortably. He is currently sleeping. Per nursing staff he was able to tolerate pureed diet. Afebrile. WBC 8.4 hemoglobin 10.6 albumin 3.2 PHYSICAL EXAM: VITAL SIGNS: Reviewed. GENERAL: Well-developed in no acute distress. HEENT: No sclera icterus. Extraocular movements grossly intact. Moist buccal mucosa. Head is atraumatic, normocephalic. ABDOMEN: Soft. Nondistended. Nontender. ASSESSMENT: 1. Recurrent aspiration pneumonia 2. Moderate protein calorie malnutrition 3. History of cerebral palsy PLAN: -Patient scheduled for PEG tube placement tomorrow, 03/06/[address] Onofre -Nothing by mouth after midnight Physician Slab Tripper note has been reviewed by physician. Signing provider agrees with the documented findings, assessment, and plan of care. Objective - Vital Signs Vital signs: Vital Signs Temp 98 F 03/05/22 08:00 Pulse 85 03/05/22 08:55 Resp 16 03/05/22 08:00 BP 113/63 03/05/22 08:00 Pulse Ox 97 03/05/22 08:44 FiO2 50 03/05/22 08:44 Intake & Output 03/04/22 03/05/22 03/05/22 18:59 06:59 18:59 Intake Total 300 250 Output Total 500 Balance -200 250 Weight 47.627 kg Intake: Intake, IV Titration 250 Amount Sodium Chloride 0.9% 1, 250 000 ml @ 130 mls/hr IV . Q7H42M [facility] Rx#:[id number] Oral 300 Output: Urine 500 Other: Voiding Method Diaper Diaper External Catheter External Catheter # Voids 2 # Bowel Movements 2 1 - Labs CBC & Chem 7: 03/05/22 09:08 03/05/22 09:08 Labs: Abnormal Lab Results - Last 24 Hours (Table) 03/05/22 03/05/22 Range/Units 09:08 09:08 RBC 3.74 L (4.30-5.90) m/uL Hgb 10.6 L (13.0-17.5) gm/dL Hct 34.4 L (39.0-53.0) % MCHC 30.7 L (31.0-37.0) g/dL RDW 19.7 H (11.5-15.5) % BUN 4 L (9-20) mg/dL Creatinine 0.42 L (0.66-1.25) mg/dL Total Bilirubin 0.1 L (0.2-1.3) mg/dL Albumin 3.2 L (3.5-5.0) g/dL Microbiology - Last 24 Hours (Table) 02/27/22 09:47 Blood Culture - Preliminary Blood No Growth after 120 hours 02/27/22 09:30 Blood Culture - Preliminary Blood No Growth after 120 hours
--- NOTE | 2022-03-05 14:05 | XR ---
EXAMINATION TYPE: XR chest 1V portable DATE OF EXAM: 03/05/2022 COMPARISON: 03/03/2022 HISTORY: Follow-up pneumonia TECHNIQUE: Single frontal view of the chest is obtained. FINDINGS: Persistent left-sided consolidation and pleural effusion stable relative to prior exam. Ri ght basilar subsegmental consolidation stable. No pneumothorax. Diffuse osteopenia. Curvature of the spine correlate for scoliosis. IMPRESSION: Persistent left-sided consolidation and pleural effusion are stable without significant interval change. Right basilar atelectasis or infiltrate stable.
[2022-03-05 14:29] LABS: Band Neutrophils % 8 %; Eosinophils # (M) 0.08 k/uL (0-0.7); Metamyelocytes # (M) 0.25 k/uL (0); Metamyelocytes % 3 %; Monocytes # (M) 1.09 k/uL (0-1.0); Myelocytes # (M) 0.17 k/uL (0); Myelocytes % 2 %; Neutrophils % (M) 57 %; Nucleated Red Blood Cells 0 /100 WBC (0-0); Total Cells Counted 200
[2022-03-05 14:30] LABS: Toxic Granulation Present
--- NOTE | 2022-03-05 17:48 | P.PN ---
Subjective Progress Note Date: 03/05/22 Tolu Sánchez, is a 36-year-old male who presented to [facility] emergency room due to increased somnolence and shortness of breath. He was evaluated in the emergency room vital examination on presentation revealed a temperature of 97.3 pulse 101 respiration 22 blood pressure 115/68 pulse ox 98% on room air Laboratory data revealed a white blood count of 5.2 hemoglobin 11.2 platelet co unt 205 sodium 139 potassium 3.2 chloride 100 CO2 26 BUN 20 creatinine 0.48 Testing in the emergency room revealed chest x-ray done in the emergency room revealed large infiltrate and/or opacification with air bronchogram within the left lung, EKG done in the emergency room revealed sinus tachycardia with right ventricular hypertrophy. Patient was admitted to medical floor for further evaluation and treatment, he was started on IV antibiotics, pulmonary consultation was requested. On 02/28/2022 patient is resting in bed currently maintained on partial nonrebreather. Current vitals temp 97.6, pulse rate 72, respiratory rate 18 blood pressure 97/64 patient stating 98% on partial rebreather at 15 L. Patient remains on IV vancomycin. Infectious disease services have been consulted. Currently blood cell count 6.6. On 03/01/2022 patient remains on partial nonrebreather. Infectious disease and pulmonary services are following this session was held with family per infectious PEG tube placement. Vitals temp 97.4, heart rate 78, respiratory rate 16, blood pressure 100/60 patient satting 98% on partial rebreather 15 L On 03/02/2022 patient was seen and examined on the medical floor he is alert nonverbal in no apparent distress, nurse denies any events or any new complaints, patient is maintained on partial nonrebreather mask on 12 L his vital exam reveals a temperature of 97.4 pulse 67 respiration 18 blood pressure 124/68 pulse ox 96% laboratory data reveals a white blood count of 5.7 hemoglobin 9.8 platelet count 139 BUN is 8 creatinine 0.42 he remains on IV antibiotic Zosyn, pulmonary and infectious disease are following, repeat chest x-ray is ordered for tomorrow On 03/03/2022 patient was seen and examined on the medical floor he is alert, nonverbal in no apparent distress vital examination reveals a temperature of 98 pulse 73 respiration 16 blood pressure 108/70 pulse ox 93% on Ventimask with FiO2 of 50% laboratory data reveals a white blood count of 5.1 hemoglobin 10.3 platelet count 147 BUN 6 creatinine 0.38 On 03/04/2022 patient is resting comfortably in bed. Patient remains on Ventimask. Current vital signs temp 9070, pulse rate 87, respiratory rate 20, blood pressure 140/76. Patient remains on IV Zosyn pulmonary and infectious disease services are following On 03/05/2022 patient was seen and examined on the medical floor he is alert nonverbal in no apparent distress he is still maintained on high flow oxygen no new episodes of fever, temperature is 90.7 pulse 100 respiration 20 blood pressure 159/78 pulse ox 97% on Ventimask white blood count is 8.4 hemoglobin 10.6 platelet count 186 chest x-ray reveals bilateral infiltrates Objective - Vital Signs Vital signs: Vital Signs Temp 98 F 03/05/22 08:00 Pulse 78 03/05/22 12:19 Resp 16 03/05/22 08:00 BP 113/63 03/05/22 08:00 Pulse Ox 97 03/05/22 08:44 FiO2 50 03/05/22 08:44 Intake & Output 03/04/22 03/05/22 03/05/22 18:59 06:59 18:59 Intake Total 300 250 Output Total 500 Balance -200 250 Weight 47.627 kg Intake: Intake, IV Titration 250 Amount Sodium Chloride 0.9% 1, 250 000 ml @ 130 mls/hr IV . Q7H42M [facility] Rx#:[id number] Oral 300 Output: Urine 500 Other: Voiding Method Diaper Diaper External Catheter External Catheter # Voids 2 # Bowel Movements 2 1 - Exam In general patient is somnolent responsive only to repeated stimuli HEENT head normocephalic and atraumatic Neck is supple no JVD no goiter no lymphadenopathy no carotid bruit Chest examination reveals a crackles in both lung galicia no wheezing Cardiac exam reveals regular heart sounds S1 and S2 no gallops no murmurs Abdomen is soft nontender no organomegaly with normal bowel sounds Extremity exam reveals no edema no cyanosis or clubbing Neurological examination reveals no gross focal deficits - Labs CBC & Chem 7: 03/05/22 09:08 03/05/22 09:08 Labs: Abnormal Lab Results - Last 24 Hours (Table) 03/05/22 03/05/22 Range/Units 09:08 09:08 RBC 3.74 L (4.30-5.90) m/uL Hgb 10.6 L (13.0-17.5) gm/dL Hct 34.4 L (39.0-53.0) % MCHC 30.7 L (31.0-37.0) g/dL RDW 19.7 H (11.5-15.5) % BUN 4 L (9-20) mg/dL Creatinine 0.42 L (0.66-1.25) mg/dL Total Bilirubin 0.1 L (0.2-1.3) mg/dL Albumin 3.2 L (3.5-5.0) g/dL Microbiology - Last 24 Hours (Table) 02/27/22 09:30 Blood Culture - Final Blood No Growth after 144 hours 02/27/22 09:47 Blood Culture - Final Blood No Growth after 144 hours Assessment and Plan Plan: Acute pneumonia possibly related to aspiration pneumonia Acute hypoxic respiratory failure Previous episodes of aspiration pneumonia including recently in November 2021 Underlying history of developmental delay with severe physical and mental debility patient requires 24-hour care Underlying history of seizure disorder 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
--- NOTE | 2022-03-05 22:47 | P.PN ---
Subjective Progress Note Date: 03/05/22 Principal diagnosis: Recurrent aspiration pneumonia Patient is a 36 year old male with mental and developmental delay admitted to the hospital with increasing shortness of breath and concerning for extensive left-sided pneumonia likely aspiration etiology. On today's evaluation that is 03/05/2022, patient continues to be afebrile the patient is breathing comfortably on a simple mask, the patient is hemodynamically stable no vomiting or diarrhea reported by the nursing staff, Objective - Vital Signs Vital signs: Vital Signs Temp 98 F 03/05/22 08:00 Pulse 74 03/05/22 12:05 Resp 16 03/05/22 08:00 BP 113/63 03/05/22 08:00 Pulse Ox 97 03/05/22 08:44 FiO2 50 03/05/22 08:44 Intake & Output 03/04/22 03/05/22 03/05/22 18:59 06:59 18:59 Intake Total 300 250 Output Total 500 Balance -200 250 Weight 47.627 kg Intake: Intake, IV Titration 250 Amount Sodium Chloride 0.9% 1, 250 000 ml @ 130 mls/hr IV . Q7H42M [facility] Rx#:[id number] Oral 300 Output: Urine 500 Other: Voiding Method Diaper Diaper External Catheter External Catheter # Voids 2 # Bowel Movements 2 1 - Exam GENERAL DESCRIPTION: Middle-aged male lying in bed in no distress RESPIRATORY SYSTEM: Unlabored breathing , coarse Bilaterally HEART: S1 S2 regular rate and rhythm , ABDOMEN: Soft , no tenderness EXTREMITIES: No edema feet - Labs CBC & Chem 7: 03/05/22 09:08 03/05/22 09:08 Labs: Abnormal Lab Results - Last 24 Hours (Table) 03/05/22 03/05/22 Range/Units 09:08 09:08 RBC 3.74 L (4.30-5.90) m/uL Hgb 10.6 L (13.0-17.5) gm/dL Hct 34.4 L (39.0-53.0) % MCHC 30.7 L (31.0-37.0) g/dL RDW 19.7 H (11.5-15.5) % BUN 4 L (9-20) mg/dL Creatinine 0.42 L (0.66-1.25) mg/dL Total Bilirubin 0.1 L (0.2-1.3) mg/dL Albumin 3.2 L (3.5-5.0) g/dL Microbiology - Last 24 Hours (Table) 02/27/22 09:47 Blood Culture - Preliminary Blood No Growth after 120 hours 02/27/22 09:30 Blood Culture - Preliminary Blood No Growth after 120 hours Assessment and Plan (1) Pneumonia Current Visit: Yes Status: Acute Code(s): J18.9 - PNEUMONIA, UNSPECIFIED ORGANISM SNOMED Code(s): 080845861 Plan: 1patient presented to hospital with increasing shortness of breath with evidence of extensive pneumonia on the left lung likely secondary to aspiration in this patient with underlying mental impairment. 2patient will benefit from PEG tube placement to decrease risk of recurrent aspiration pneumonia , blood culture negative sputum could not be collected 3 patient seems to have clinically responded to Zosyn which will be continued 4general surgery has been consulted for possible PEG tube placement and monitor clinical course closely Time with Patient: Less than 30
[2022-03-06] MEDS: SODIUM CHLORIDE 0.9% 1,000 ML IV SCH ×3 (03:09→19:10)
[2022-03-06] MEDS: IPRATROPIUM-ALBUTEROL 3 ML NEB INHALATION SCH ×4 (08:10→19:15)
[2022-03-06] MEDS: ENOXAPARIN 30 MG/0.3 ML SYRINGE SQ SCH (08:38)
[2022-03-06] MEDS: LORazepam 0.5 MG TAB PO SCH ×3 (08:39→17:50)
[2022-03-06] MEDS: DIVALPROEX SPRINKLE 125 MG CAP.SPRINK PO SCH ×2 (08:39→17:49)
[2022-03-06] MEDS: PIPERACILLIN-TAZOBACTAM 3.375 GM in SODIUM CHLORIDE 0.9% 100 ML IVPB SCH ×3 (08:40→23:42)
[2022-03-06] MEDS: risperiDONE 0.25 MG TAB PO SCH ×2 (08:45→08:50)
--- NOTE | 2022-03-06 11:22 | P.PN ---
Subjective Progress Note Date: 03/06/22 Principal diagnosis: Chronic aspiration pneumonia. On today's evaluation of 02/28/2022, the father the bedside is telling me that the patient is slightly more lethargic compared to yesterday. The patient does not communicate. Upon stimulation, he was able to open up his eyes. He is breathing is nonlabored. He is on a on partial nonrebreather facemask and the patient's pulse ox is 98% at this point in time. His blood pressure was soft and 84/50 cm of water the patient remained continues to be on normal saline at the rate of 130 mL an hour. The blood work from today shows no significant leukocytosis. The white cell count 6.6 with a hemoglobin of 10 and a platelet count of 133. Electrodes are all within normal limits. Renal function stable. Cultures are negative for now. He remains on a combination of Zosyn and vancomycin. Patient was able to get some diet yesterday with assistance. Family is interested in a PEG tube insertion if he recovers from this acute event. 03/01/2022, the patient's condition is essentially the same as yesterday. Repeat chest x-ray was done and the patient was found to have still persistent consolidation of the left lung. The patient is being fed through family members. The patient remains on IV Zosyn and vancomycin. No seizure activity has been noted. Electrodes are stable. The white cell count is at 7.6 with a hemoglobin of 10.6. The patient is using a partial nonrebreather facemask and his current pulse ox 96% and his breathing is nonlabored at this point in time. 03/02/2022, condition essentially unchanged. The patient was brought down to 12 L partial nonrebreather facemask and the pulse ox is around 96%. Breathing remains nonlabored and the patient is hemodynamically stable. Labs are unchanged and the patient has a white count of 5.7 with a hemoglobin of 9.8 and a platelet count of 135. BUN is at 80 the creatinine 0.4 and sodium level is up to 144. Remains on IV Zosyn for now. 03/03/2022, the patient's chest x-ray showing improvement in the right lung consolidation. The patient remains on IV Zosyn. Clinically, the patient seems to be quite comfortable and his breathing is nonlabored. The white cell count at 5.0 with a hemoglobin of 10.3 and a platelet count of 147. Rest of the blood work and electrolytes are all within normal limits. The patient has been weaned down to 50% Ventimask and the partial nonrebreather facemask has been discontinued. No significant cough or sputum production. Progress note dated 03/04/2022. The patient's most recent chest x-ray does show improvement in the opacity in the left lung. The patient's mother is in agreement for placement of a PEG tu be. Surgery will be consulted. I did explain the procedure to her. Laboratory data includes a white count 7.1, inguinal him 10.2, hematocrit 33.4, and a platelet count of 159,000. Sodium, potassium, chloride, CO2, anion gap, are all normal. BUN was 5 with a creatinine 0.42. Albumin is 3. Chest x-ray from March 03 of show improvement. The patient continues on Zosyn. Progress note dated 03/05/2022. The patient is to be scheduled for a PEG tube placement. The patient does suffer from chronic aspiration. We did speak to the patient's mother yesterday. Currently, the patient's resting comfortably. The patient is currently on a 50% Venturi mask. White count 8.4, hemoglobin 10.6, hematocrit 34.4, and platelet count 186,000. Sodium 142, potassium 4.1, chlorides 107, CO2 27, BUN 4, creatinine 0.42. Albumin is 3.2. Blood cultures are currently negative. Progress note dated 03/06/2022. This is a 46-year-old male who has a history of developmental delay. The patient is currently being evaluated for PEG tube placement. The patient has a history of chronic aspiration pneumonia. Currently, the patient appears to be relatively stable. He remains on a 50% Venturi mask. He is not able to give any additional history. He appears in no acute distress. No new labs today. Chest x-ray from March 05 shows persistent left-sided consolidation and small pleural effusion. There is some right basilar atelectasis as well. Objective - Vital Signs Vital signs: Vital Signs Temp 97.5 F L 03/06/22 08:00 Pulse 74 03/06/22 08:26 Resp 19 03/06/22 08:00 BP 118/68 03/06/22 08:00 Pulse Ox 95 03/06/22 08:10 FiO2 50 03/06/22 08:10 Intake & Output 03/05/22 03/06/22 03/06/22 18:59 06:59 18:59 Intake Total 354 150 Output Total 650 500 550 Balance -296 -350 -550 Intake: Intake, IV Titration 150 Amount Sodium Chloride 0.9% 1, 150 000 ml @ 130 mls/hr IV . Q7H42M [facility] Rx#:[id number] Oral 354 Output: Urine 650 500 550 Other: Voiding Method Diaper Diaper External Catheter External Catheter - Exam No acute distress, oriented 3. The patient is currently wearing a Ventimask. Saturations are 95 %. HEENT examination is grossly unremarkable. Neck supple. Full range of motion. No adenopathy thyromegaly or neck vein distention. Cardiovascular examination reveals regular rhythm rate. S1-S2 normal. No S3 or S4. No discernible murmur noted. Heart sounds are distant. Heart rate 74 bpm. Lungs reveal mostly clear breath sounds. Coarse rhonchi noted particularly in the left. Scattered crackles on the right. No wheezes. Breath sounds are diminished throughout. Abdomen soft bowel sounds are heard. No masses or tenderness. Extremities are intact. No cyanosis clubbing or edema. Skin is without rash or lesion. Neurologic examination is difficult to evaluate given his developmental delay. - Labs CBC & Chem 7: 03/05/22 09:08 03/05/22 09:08 Labs: Abnormal Lab Results - Last 24 Hours (Table) 03/05/22 Range/Units 09:08 Monocytes # (Manual) 1.09 H (0-1.0) k/uL Metamyelocytes # (Man) 0.25 H (0) k/uL Myelocytes # (Manual) 0.17 H (0) k/uL Microbiology - Last 24 Hours (Table) 03/04/22 14:32 Blood Culture - Preliminary Blood No Growth after 24 hours 03/04/22 14:16 Blood Culture - Preliminary Blood No Growth after 24 hours 02/27/22 09:30 Blood Culture - Final Blood No Growth after 144 hours 02/27/22 09:47 Blood Culture - Final Blood No Growth after 144 hours Assessment and Plan Assessment: Acute hypoxemic respiratory failure, secondary to aspiration pneumonia. Recurrent aspiration, with anticipation of PEG tube placement in the near future. Recent hospitalization for pneumonia and hypoxemic respiratory failure. History of seizure disorder. History of developmental delay. Patient is nonverbal. Previous history of meningitis with brain injury, as an infant. Plan: Plan dated 03/04/2022. The patient's mother does agree for PEG tube placement. The patient is a DO NOT RESUSCITATE patient. The patient remains on Zosyn. The patient should be on aspiration precautions, with head of bed elevated at all times. We will continue to follow. Prognosis is guarded. The patient remains on substantial amounts of oxygen therapy. We will continue to follow make recommendations where appropriate. Plan dated 03/05/2022. The patient will have a PEG tube placed, in the near future. We discussed this with the patient's mother, and the surgeon. Labs, x-rays, and medications all reviewed. Overall prognosis remains guarded. The patient should be an aspiration precautions. We will continue to follow make recommendations where appropriate. The patient is a DO NOT RESUSCITATE patient. I believe that to be appropriate. Plan dated 03/06/2022. Patient appears to be doing relatively well. Patient is currently nothing by mouth for possible PEG tube placement. The patient remains on antibiotics. Blood cultures have been negative. The patient cannot give us a sputum sample. The patient remains on Zosyn. The patient is a DO NOT RESUSCITATE patient. We will continue to follow and make recommendations where appropriate. Prognosis is certainly guarded. Time with Patient: Less than 30
[2022-03-06] MEDS: TOPIRAMATE 15 MG PO SCH ×2 (13:01→17:54)
[2022-03-06] MEDS ORDERED: LIDOCAINE 2% INJ 20 MG/ML (2 ML VIAL) ONE (16:29)
[2022-03-06] MEDS ORDERED: PROPOFOL 10 MG/ML 20 ML VIAL IV ONE (16:29)
[2022-03-06] MEDS ORDERED: IV FLUID CONTINUATION 1,000 ML IV ONE ×2 (16:35)
--- NOTE | 2022-03-06 17:23 | P.PCN ---
Date of Procedure: 03/06/22 Procedure(s) Performed: PREOPERATIVE DIAGNOSIS: Aspiration pneumonia POSTOPERATIVE DIAGNOSIS: Same PROCEDURE: EGD with attempted PEG tube placement SURGEON: [place] EBL: Minimal ANESTHESIA: Sedation COMPLICATIONS: Unable to place tube OPERATIVE PROCEDURE: The patient was placed in the supine position on the e ndoscopy table. The patient was sedated per anesthesia that time. The Olympus gastroscope was inserted into the oropharynx and passed under direct visualization to the region of the duodenum. No obstruction was seen. The pylorus was widely patent. The stomach was carefully inspected. The stomach was fully insufflated with air. The abdominal wall was inspected. It took quite some time before we were able to finally identify some dimpling of the anterior wall of the antrum of the stomach when pressing on the abdominal wall. We saw a it of light in that area. Using the localizing needle the skin was localized in the localizing 22-gauge needle was advanced into the location of the stomach. Unfortunately we were never able to see the needle reached the stomach and given the patient's small size decided to abort at that point as I was concerned that we did not have direct access to the stomach. The stomach duodenum and esophagus were were free of any visualized abnormalities. Case was discussed with the patient's mother following the procedure. Discussed options of laparoscopic gastrostomy tube placement versus open gastrostomy tube placement versus interventional radiology guided placement of feeding tube placement. She will discuss further with her and we will discuss tomorrow to make further plans.
--- NOTE | 2022-03-06 18:26 | P.PN ---
Subjective Progress Note Date: 03/06/22 Tolu Sánchez, is a 36-year-old male who presented to [facility] emergency room due to increased somnolence and shortness of breath. He was evaluated in the emergency room vital examination on presentation revealed a temperature of 97.3 pulse 101 respiration 22 blood pressure 115/68 pulse ox 98% on room air Laboratory data revealed a white blood count of 5.2 hemoglobin 11.2 platelet co unt 205 sodium 139 potassium 3.2 chloride 100 CO2 26 BUN 20 creatinine 0.48 Testing in the emergency room revealed chest x-ray done in the emergency room revealed large infiltrate and/or opacification with air bronchogram within the left lung, EKG done in the emergency room revealed sinus tachycardia with right ventricular hypertrophy. Patient was admitted to medical floor for further evaluation and treatment, he was started on IV antibiotics, pulmonary consultation was requested. On 02/28/2022 patient is resting in bed currently maintained on partial nonrebreather. Current vitals temp 97.6, pulse rate 72, respiratory rate 18 blood pressure 97/64 patient stating 98% on partial rebreather at 15 L. Patient remains on IV vancomycin. Infectious disease services have been consulted. Currently blood cell count 6.6. On 03/01/2022 patient remains on partial nonrebreather. Infectious disease and pulmonary services are following this session was held with family per infectious PEG tube placement. Vitals temp 97.4, heart rate 78, respiratory rate 16, blood pressure 100/60 patient satting 98% on partial rebreather 15 L On 03/02/2022 patient was seen and examined on the medical floor he is alert nonverbal in no apparent distress, nurse denies any events or any new complaints, patient is maintained on partial nonrebreather mask on 12 L his vital exam reveals a temperature of 97.4 pulse 67 respiration 18 blood pressure 124/68 pulse ox 96% laboratory data reveals a white blood count of 5.7 hemoglobin 9.8 platelet count 139 BUN is 8 creatinine 0.42 he remains on IV antibiotic Zosyn, pulmonary and infectious disease are following, repeat chest x-ray is ordered for tomorrow On 03/03/2022 patient was seen and examined on the medical floor he is alert, nonverbal in no apparent distress vital examination reveals a temperature of 98 pulse 73 respiration 16 blood pressure 108/70 pulse ox 93% on Ventimask with FiO2 of 50% laboratory data reveals a white blood count of 5.1 hemoglobin 10.3 platelet count 147 BUN 6 creatinine 0.38 On 03/04/2022 patient is resting comfortably in bed. Patient remains on Ventimask. Current vital signs temp 9070, pulse rate 87, respiratory rate 20, blood pressure 140/76. Patient remains on IV Zosyn pulmonary and infectious disease services are following On 03/05/2022 patient was seen and examined on the medical floor he is alert nonverbal in no apparent distress he is still maintained on high flow oxygen no new episodes of fever, temperature is 90.7 pulse 100 respiration 20 blood pressure 159/78 pulse ox 97% on Ventimask white blood count is 8.4 hemoglobin 10.6 platelet count 186 chest x-ray reveals bilateral infiltrates On 03/06/2022 patient was seen and examined on the medical floor he is alert nonverbal in no apparent distress, he is still maintained on oxygen via Ventimask, chest x-ray with minimal improvement, patient is scheduled today for PEG tube placement, will follow closely. Objective - Vital Signs Vital signs: Vital Signs Temp 97.2 F L 03/06/22 12:00 Pulse 83 03/06/22 12:00 Resp 17 03/06/22 12:00 BP 119/58 03/06/22 12:00 Pulse Ox 95 03/06/22 12:00 FiO2 50 03/06/22 12:00 Intake & Output 03/05/22 03/06/22 03/06/22 18:59 06:59 18:59 Intake Total 354 150 Output Total 650 500 550 Balance -296 -350 -550 Intake: Intake, IV Titration 150 Amount Sodium Chloride 0.9% 1, 150 000 ml @ 130 mls/hr IV . Q7H42M [facility] Rx#:[id number] Oral 354 Output: Urine 650 500 550 Other: Voiding Method Diaper Diaper External Catheter External Catheter - Exam In general patient is somnolent responsive only to repeated stimuli HEENT head normocephalic and atraumatic Neck is supple no JVD no goiter no lymphadenopathy no carotid bruit Chest examination reveals a crackles in both lung galicia no wheezing Cardiac exam reveals regular heart sounds S1 and S2 no gallops no murmurs Abdomen is soft nontender no organomegaly with normal bowel sounds Extremity exam reveals no edema no cyanosis or clubbing Neurological examination reveals no gross focal deficits - Labs CBC & Chem 7: 03/05/22 09:08 03/05/22 09:08 Labs: Abnormal Lab Results - Last 24 Hours (Table) 03/05/22 Range/Units 09:08 Monocytes # (Manual) 1.09 H (0-1.0) k/uL Metamyelocytes # (Man) 0.25 H (0) k/uL Myelocytes # (Manual) 0.17 H (0) k/uL Microbiology - Last 24 Hours (Table) 03/04/22 14:32 Blood Culture - Preliminary Blood No Growth after 24 hours 03/04/22 14:16 Blood Culture - Preliminary Blood No Growth after 24 hours 02/27/22 09:30 Blood Culture - Final Blood No Growth after 144 hours 02/27/22 09:47 Blood Culture - Final Blood No Growth after 144 hours Assessment and Plan Plan: Acute pneumonia possibly related to aspiration pneumonia Acute hypoxic respiratory failure Previous episodes of aspiration pneumonia including recently in November 2021 Underlying history of developmental delay with severe physical and mental debility patient requires 24-hour care Underlying history of seizure disorder 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
[2022-03-07] MEDS: SODIUM CHLORIDE 0.9% 1,000 ML IV SCH ×4 (05:33→18:55)
[2022-03-07] MEDS: DIVALPROEX SPRINKLE 125 MG CAP.SPRINK PO SCH ×2 (05:33→16:52)
[2022-03-07] MEDS: TOPIRAMATE 15 MG PO SCH ×2 (05:34→16:53)
[2022-03-07] MEDS: LORazepam 0.5 MG TAB PO SCH ×3 (06:52→16:52)
--- NOTE | 2022-03-07 07:17 | P.PN ---
Subjective Progress Note Date: 03/06/22 Principal diagnosis: Recurrent aspiration pneumonia Patient is a 36 year old male with mental and developmental delay admitted to the hospital with increasing shortness of breath and concerning for extensive left-sided pneumonia likely aspiration etiology. On today's evaluation that is 03/06/2022, patient remains to be afebrile, the patient is breathing comfortably on a simple mask, the patient is hemodynamically stable, no vomiting or diarrhea reported by the nursing staff, patient scheduled for a PEG tube placement this afternoon Objective - Vital Signs Vital signs: Vital Signs Temp 97.2 F L 03/06/22 12:00 Pulse 83 03/06/22 12:00 Resp 17 03/06/22 12:00 BP 119/58 03/06/22 12:00 Pulse Ox 95 03/06/22 12:00 FiO2 50 03/06/22 12:00 Intake & Output 03/05/22 03/06/22 03/06/22 18:59 06:59 18:59 Intake Total 354 150 Output Total 650 500 550 Balance -296 -350 -550 Intake: Intake, IV Titration 150 Amount Sodium Chloride 0.9% 1, 150 000 ml @ 130 mls/hr IV . Q7H42M [facility] Rx#:[id number] Oral 354 Output: Urine 650 500 550 Other: Voiding Method Diaper Diaper External Catheter External Catheter - Exam GENERAL DESCRIPTION: Middle-aged male lying in bed in no distress RESPIRATORY SYSTEM: Unlabored breathing , coarse Bilaterally HEART: S1 S2 regular rate and rhythm , ABDOMEN: Soft , no tenderness EXTREMITIES: No edema feet - Labs CBC & Chem 7: 03/05/22 09:08 03/05/22 09:08 Labs: Abnormal Lab Results - Last 24 Hours (Table) 03/05/22 Range/Units 09:08 Monocytes # (Manual) 1.09 H (0-1.0) k/uL Metamyelocytes # (Man) 0.25 H (0) k/uL Myelocytes # (Manual) 0.17 H (0) k/uL Microbiology - Last 24 Hours (Table) 03/04/22 14:32 Blood Culture - Preliminary Blood No Growth after 24 hours 03/04/22 14:16 Blood Culture - Preliminary Blood No Growth after 24 hours 02/27/22 09:30 Blood Culture - Final Blood No Growth after 144 hours 02/27/22 09:47 Blood Culture - Final Blood No Growth after 144 hours Assessment and Plan (1) Pneumonia Current Visit: Yes Status: Acute Code(s): J18.9 - PNEUMONIA, UNSPECIFIED ORGANISM SNOMED Code(s): 339055401 Plan: 1patient presented to hospital with increasing shortness of breath with evidence of extensive pneumonia on the left lung likely secondary to aspiration in this patient with underlying mental impairment. 2patient will benefit from PEG tube placement to decrease risk of recurrent aspiration pneumonia , blood culture negative sputum could not be collected 3 patient has shown clinical improvement and will continue Zosyn , awaiting PEG tube placement this afternoon Time with Patient: Less than 30
[2022-03-07] MEDS: PIPERACILLIN-TAZOBACTAM 3.375 GM in SODIUM CHLORIDE 0.9% 100 ML IVPB SCH ×3 (08:06→23:46)
[2022-03-07] MEDS: ENOXAPARIN 30 MG/0.3 ML SYRINGE SQ SCH (08:06)
[2022-03-07] MEDS: IPRATROPIUM-ALBUTEROL 3 ML NEB INHALATION SCH ×4 (08:32→20:35)
--- NOTE | 2022-03-07 09:55 | P.PN ---
Subjective Progress Note Date: 03/07/22 Tolu Sánchez, is a 36-year-old male who presented to [facility] emergency room due to increased somnolence and shortness of breath. He was evaluated in the emergency room vital examination on presentation revealed a temperature of 97.3 pulse 101 respiration 22 blood pressure 115/68 pulse ox 98% on room air Laboratory data revealed a white blood count of 5.2 hemoglobin 11.2 platelet co unt 205 sodium 139 potassium 3.2 chloride 100 CO2 26 BUN 20 creatinine 0.48 Testing in the emergency room revealed chest x-ray done in the emergency room revealed large infiltrate and/or opacification with air bronchogram within the left lung, EKG done in the emergency room revealed sinus tachycardia with right ventricular hypertrophy. Patient was admitted to medical floor for further evaluation and treatment, he was started on IV antibiotics, pulmonary consultation was requested. On 02/28/2022 patient is resting in bed currently maintained on partial nonrebreather. Current vitals temp 97.6, pulse rate 72, respiratory rate 18 blood pressure 97/64 patient stating 98% on partial rebreather at 15 L. Patient remains on IV vancomycin. Infectious disease services have been consulted. Currently blood cell count 6.6. On 03/01/2022 patient remains on partial nonrebreather. Infectious disease and pulmonary services are following this session was held with family per infectious PEG tube placement. Vitals temp 97.4, heart rate 78, respiratory rate 16, blood pressure 100/60 patient satting 98% on partial rebreather 15 L On 03/02/2022 patient was seen and examined on the medical floor he is alert nonverbal in no apparent distress, nurse denies any events or any new complaints, patient is maintained on partial nonrebreather mask on 12 L his vital exam reveals a temperature of 97.4 pulse 67 respiration 18 blood pressure 124/68 pulse ox 96% laboratory data reveals a white blood count of 5.7 hemoglobin 9.8 platelet count 139 BUN is 8 creatinine 0.42 he remains on IV antibiotic Zosyn, pulmonary and infectious disease are following, repeat chest x-ray is ordered for tomorrow On 03/03/2022 patient was seen and examined on the medical floor he is alert, nonverbal in no apparent distress vital examination reveals a temperature of 98 pulse 73 respiration 16 blood pressure 108/70 pulse ox 93% on Ventimask with FiO2 of 50% laboratory data reveals a white blood count of 5.1 hemoglobin 10.3 platelet count 147 BUN 6 creatinine 0.38 On 03/04/2022 patient is resting comfortably in bed. Patient remains on Ventimask. Current vital signs temp 9070, pulse rate 87, respiratory rate 20, blood pressure 140/76. Patient remains on IV Zosyn pulmonary and infectious disease services are following On 03/05/2022 patient was seen and examined on the medical floor he is alert nonverbal in no apparent distress he is still maintained on high flow oxygen no new episodes of fever, temperature is 90.7 pulse 100 respiration 20 blood pressure 159/78 pulse ox 97% on Ventimask white blood count is 8.4 hemoglobin 10.6 platelet count 186 chest x-ray reveals bilateral infiltrates On 03/06/2022 patient was seen and examined on the medical floor he is alert nonverbal in no apparent distress, he is still maintained on oxygen via Ventimask, chest x-ray with minimal improvement, patient is scheduled today for PEG tube placement, will follow closely. 03/07/2022 patient is resting comfortably in bed. Patient is now on 2 L nasal cannula satting 96%. Per surgical services attempt was made for PEG tube placement but was unable to place peg tube due to anatomy. Per surgical services will further discussed with parents in regards to next options for PEG tube placement. Patient remains on IV Zosyn and ID pulmonary and surgical services are following. Objective - Vital Signs Vital signs: Vital Signs Temp 98.8 F 03/07/22 08:00 Pulse 103 H 03/07/22 08:47 Resp 18 03/07/22 08:00 BP 153/78 03/07/22 08:00 Pulse Ox 96 03/07/22 08:35 FiO2 50 03/06/22 12:00 Intake & Output 03/06/22 03/07/22 03/07/22 18:59 06:59 18:59 Intake Total 200 800 Output Total 1150 300 Balance -950 500 Intake: IV 200 Intake, IV Titration 800 Amount IV Fluid Continuation 1, 350 000 ml @ 0 mls/hr IV [facility] Rx#:[id number] Piperacillin-Tazobactam 3 100 .375 gm In Sodium Chloride 0.9% 100 ml @ 25 mls/hr IVPB Q8HR [facility] Rx# :[id number] Sodium Chloride 0.9% 1, 350 000 ml @ 130 mls/hr IV . Q7H42M [facility] Rx#:[id number] Output: Urine 1150 300 Other: Voiding Method Diaper Diaper External Catheter External Catheter # Voids 2 - Labs CBC & Chem 7: 03/05/22 09:08 03/05/22 09:08 Labs: Microbiology - Last 24 Hours (Table) 03/04/22 14:16 Blood Culture - Preliminary Blood No Growth after 48 hours 03/04/22 14:32 Blood Culture - Preliminary Blood No Growth after 48 hours Assessment and Plan Plan: Acute pneumonia possibly related to aspiration pneumonia Acute hypoxic respiratory failure Previous episodes of aspiration pneumonia including recently in November 2021 Underlying history of developmental delay with severe physical and mental debility patient requires 24-hour care Underlying history of seizure disorder 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
--- NOTE | 2022-03-07 12:42 | P.PN ---
Subjective Progress Note Date: 03/07/22 CHIEF COMPLAINT: Recurrent aspiration pneumonia HISTORY OF PRESENT ILLNESS: Patient lying in bed comfortably. He is status post EGD with attempted PEG tube placement. PHYSICAL EXAM: VITAL SIGNS: Reviewed. GENERAL: Well-developed in no acute distress. HEENT: No sclera icterus. Extraocular movements grossly intact. Moist buccal mucosa. Head is atraumatic, normocephalic. ABDOMEN: Soft. Nondistended. Nontender. ASSESSMENT: 1. Recurrent aspiration pneumonia 2. Moderate protein calorie malnutrition 3. History of cerebral palsy PLAN: -Okay to resume the pured diet surgical standpoint -Further recommendations forthcoming per surgeon. Awaiting family's decision regarding options for feeding tube placement. Dr. Onofre did discuss with family options of laparoscopic gastrostomy tube placement versus open gastrostomy tube placement versus interventional radiology guided placement of feeding tube placement. -Continue supportive care Physician Immigration Investigator note has been reviewed by physician. Signing provider agrees with the documented findings, assessment, and plan of care. I have personally seen and examined the patient, reviewed the BENDER HELPER /PAs history, exam and MDM and agree with the assessment and plan as written. Based on total visit time, I have performed more than 50% of the visit. As above: Patient is comfortable today. No obvious complaints. No dyspnea witnessed. Family not present at the bedside to discuss their decision regarding enteral feeding. We'll try to contact them. Objective - Vital Signs Vital signs: Vital Signs Temp 98.8 F 03/07/22 08:00 Pulse 76 03/07/22 12:30 Resp 18 03/07/22 12:03 BP 134/73 03/07/22 12:03 Pulse Ox 96 03/07/22 12:03 FiO2 50 03/06/22 12:00 Intake & Output 03/06/22 03/07/22 03/07/22 18:59 06:59 18:59 Intake Total 200 800 Output Total 1150 300 Balance -950 500 Weight 47.627 kg Intake: IV 200 Intake, IV Titration 800 Amount IV Fluid Continuation 1, 350 000 ml @ 0 mls/hr IV .STK -[facility] Rx#:[id number] Piperacillin-Tazobactam 3 100 .375 gm In Sodium Chloride 0.9% 100 ml @ 25 mls/hr IVPB Q8HR [facility] Rx# :[id number] Sodium Chloride 0.9% 1, 350 000 ml @ 130 mls/hr IV . Q7H42M [facility] Rx#:[id number] Output: Urine 1150 300 Other: Voiding Method Diaper Diaper Diaper External Catheter External Catheter External Catheter # Voids 2 - Labs CBC & Chem 7: 03/05/22 09:08 03/05/22 09:08 Labs: Microbiology - Last 24 Hours (Table) 03/04/22 14:16 Blood Culture - Preliminary Blood No Growth after 48 hours 03/04/22 14:32 Blood Culture - Preliminary Blood No Growth after 48 hours
--- NOTE | 2022-03-07 13:51 | P.PN ---
Subjective Progress Note Date: 03/07/22 On today's evaluation of 02/28/2022, the father the bedside is telling me that the patient is slightly more lethargic compared to yesterday. The patient does not communicate. Upon stimulation, he was able to open up his eyes. He is breathing is nonlabored. He is on a on partial nonrebreather facemask and the patient's pulse ox is 98% at this point in time. His blood pressure was soft and 84/50 cm of water the patient remained continues to be on normal saline at the rate of 130 mL an hour. The blood work from today shows no significant leukocytosis. The white cell count 6.6 with a hemoglobin of 10 and a platelet count of 133. Electrodes are all within normal limits. Renal function stable. Cultures are negative for now. He remains on a combination of Zosyn and vancomycin. Patient was able to get some diet yesterday with assistance. Family is interested in a PEG tube insertion if he recovers from this acute event. 03/01/2022, the patient's condition is essentially the same as yesterday. Repeat chest x-ray was done and the patient was found to have still persistent consolidation of the left lung. The patient is being fed through family members. The patient remains on IV Zosyn and vancomycin. No seizure activity has been noted. Electrodes are stable. The white cell count is at 7.6 with a hemoglobin of 10.6. The patient is using a partial nonrebreather facemask and his current pulse ox 96% and his breathing is nonlabored at this point in time. 03/02/2022, condition essentially unchanged. The patient was brought down to 12 L partial nonrebreather facemask and the pulse ox is around 96%. Breathing remains nonlabored and the patient is hemodynamically stable. Labs are unchanged and the patient has a white count of 5.7 with a hemoglobin of 9.8 and a platelet count of 135. BUN is at 80 the creatinine 0.4 and sodium level is up to 144. Remains on IV Zosyn for now. 03/03/2022, the patient's chest x-ray showing improvement in the right lung consolidation. The patient remains on IV Zosyn. Clinically, the patient seems to be quite comfortable and his breathing is nonlabored. The white cell count at 5.0 with a hemoglobin of 10.3 and a platelet count of 147. Rest of the blood work and electrolytes are all within normal limits. The patient has been weaned down to 50% Ventimask and the partial nonrebreather facemask has been discontinued. No significant cough or sputum production. Progress note dated 03/04/2022. The patient's most recent chest x-ray does show improvement in the opacity in the left lung. The patient's mother is in agreement for placement of a PEG tube. Surgery will be consulted. I did explain the procedure to her. Laborato ry data includes a white count 7.1, inguinal him 10.2, hematocrit 33.4, and a platelet count of 159,000. Sodium, potassium, chloride, CO2, anion gap, are all normal. BUN was 5 with a creatinine 0.42. Albumin is 3. Chest x-ray from March 03 of show improvement. The patient continues on Zosyn. Progress note dated 03/05/2022. The patient is to be scheduled for a PEG tube placement. The patient does suffer from chronic aspiration. We did speak to the patient's mother yesterday. Currently, the patient's resting comfortably. The patient is currently on a 50% Venturi mask. White count 8.4, hemoglobin 10.6, hematocrit 34.4, and platelet count 186,000. Sodium 142, potassium 4.1, chlorides 107, CO2 27, BUN 4, creatinine 0.42. Albumin is 3.2. Blood cultures are currently negative. Progress note dated 03/06/2022. This is a 46-year-old male who has a history of developmental delay. The patient is currently being evaluated for PEG tube placement. The patient has a history of chronic aspiration pneumonia. Currently, the patient appears to be relatively stable. He remains on a 50% Venturi mask. He is not able to give any additional history. He appears in no acute distress. No new labs today. Chest x-ray from March 05 shows persistent left-sided consolidation and small pleural effusion. There is some right basilar atelectasis as well. The patient is seen today 03/07/2022 in follow-up on the selective care unit. He is currently resting in bed. Awake. Maintaining O2 saturations in the 90s on 3 L/m per nasal cannula. He's been afebrile. Hemodynamically stable. He is having issues with chronic aspiration pneumonias. The plan was for PEG tube insertion yesterday however was unable to be placed by surgical services. He remains on tube feedings. He remains on antibiotics in the form of Zosyn. Objective - Vital Signs Vital signs: Vital Signs Temp 98.8 F 03/07/22 08:00 Pulse 76 03/07/22 12:30 Resp 18 03/07/22 12:03 BP 134/73 03/07/22 12:03 Pulse Ox 96 03/07/22 12:03 FiO2 50 03/06/22 12:00 Intake & Output 03/06/22 03/07/22 03/07/22 18:59 06:59 18:59 Intake Total 200 800 Output Total 1150 300 Balance -950 500 Weight 47.627 kg Intake: IV 200 Intake, IV Titration 800 Amount IV Fluid Continuation 1, 350 000 ml @ 0 mls/hr IV .STK [facility] Rx#:[id number] Piperacillin-Tazobactam 3 100 .375 gm In Sodium Chloride 0.9% 100 ml @ 25 mls/hr IVPB Q8HR [facility] Rx# :[id number] Sodium Chloride 0.9% 1, 350 000 ml @ 130 mls/hr IV . Q7H42M [facility] Rx#:[id number] Output: Urine 1150 300 Other: Voiding Method Diaper Diaper Diaper External Catheter External Catheter External Catheter # Voids 2 - Exam 36-year-old male patient with cerebral palsy, developmentally delayed. No acute distress, oriented 3. The patient is currently on 3 L nasal cannula. Saturations are 96 %. HEENT examination is grossly unremarkable. Neck supple. Full range of motion. No adenopathy thyromegaly or neck vein distention. Cardiovascular examination reveals regular rhythm rate. S1-S2 normal. No S3 or S4. No discernible murmur noted. Heart sounds are distant. Heart rate 74 bpm. Lungs reveal mostly clear breath sounds. Coarse rhonchi noted particularly in the left. Scattered crackles on the right. No wheezes. Breath sounds are diminished throughout. Abdomen soft bowel sounds are heard. No masses or tenderness. Extremities are intact. No cyanosis clubbing or edema. Skin is without rash or lesion. Neurologic examination is difficult to evaluate given his developmental delay. - Labs CBC & Chem 7: 03/05/22 09:08 03/05/22 09:08 Labs: Microbiology - Last 24 Hours (Table) 03/04/22 14:16 Blood Culture - Preliminary Blood No Growth after 48 hours 03/04/22 14:32 Blood Culture - Preliminary Blood No Growth after 48 hours Assessment and Plan Assessment: Acute hypoxemic respiratory failure, secondary to aspiration pneumonia. Impro ed and on 3 L nasal cannula. Remains on Zosyn. Recurrent aspiration, with anticipation of PEG tube placement in the near future. Recent hospitalization for pneumonia and hypoxemic respiratory failure. History of seizure disorder. History of developmental delay. Patient is nonverbal. Previous history of meningitis with brain injury, as an . Plan: The patient was seen and evaluated Currently on 3 L nasal cannula Remains on Zosyn and bronchodilators Lovenox for DVT prophylaxis Surgery unable to place PEG tube yesterday due to anatomy May require transfer to tertiary care center for placement Awaiting family decision Titrate down the FiO2 as tolerated Follow-up chest x-ray in the a.m. We will continue to follow I have personally seen and examined the patient, performed the documentation and the assessment and plan as written. Number of minutes spent on the visit: 10.
[2022-03-08] MEDS: TOPIRAMATE 15 MG PO SCH ×2 (05:59→16:53)
[2022-03-08] MEDS: DIVALPROEX SPRINKLE 125 MG CAP.SPRINK PO SCH ×2 (05:59→16:53)
[2022-03-08] MEDS: risperiDONE 0.25 MG TAB PO SCH (05:59)
[2022-03-08] MEDS: LORazepam 0.5 MG TAB PO SCH ×3 (05:59→16:53)
[2022-03-08] MEDS: IPRATROPIUM-ALBUTEROL 3 ML NEB INHALATION SCH ×4 (08:13→20:04)
--- NOTE | 2022-03-08 09:00 | XR ---
EXAMINATION TYPE: XR chest 1V portable DATE OF EXAM: 03/08/2022 8:34 AM COMPARISON: Chest radiographs from 03/05/2022 TECHNIQUE: XR chest 1V portable Frontal view of the chest. CLINICAL INDICATION:Male, 36 years old with history of Pneumonia; FINDINGS: Lungs/Pleura: Left Multifocal airspace opacities which may be mildly improved from prior. No evidence of pneumothorax or pleural effusion. Pulmonary vascularity: Unremarkable. Heart/mediastinum: Cardiomediastinal silhouette is unremarkable. Musculoskeletal: No acute osseous pathology. IMPRESSION: Similar to mildly improved aeration of the left airspace opacities compared to prior.
[2022-03-08] MEDS: ENOXAPARIN 30 MG/0.3 ML SYRINGE SQ SCH (09:13)
[2022-03-08] MEDS: PIPERACILLIN-TAZOBACTAM 3.375 GM in SODIUM CHLORIDE 0.9% 100 ML IVPB SCH ×3 (09:13→23:30)
[2022-03-08 10:15] LABS: Anisocytosis Slight; HCT 35.7 % (39.0-53.0); Hypochromasia Slight; MCH 27.5 pg (25.0-35.0); MCHC 30.9 g/dL (31.0-37.0); MCV 88.9 fL (80.0-100.0); Mean Platelet Volume 8.2; Platelet Count 313 k/uL (150-450); RBC 4.02 m/uL (4.30-5.90)
[2022-03-08 10:24] LABS: Band Neutrophils % 1 %; Monocytes # (M) 1.15 k/uL (0-1.0); Neutrophils % (M) 78 %; Nucleated Red Blood Cells 1 /100 WBC (0-0); Total Cells Counted 100; WBC 16.4 k/uL (3.8-10.6)
[2022-03-08 10:26] LABS: African American GFR (CKD) >90 (>60 ml/min/1.73 sqM); Albumin 3.2 g/dL (3.5-5.0); Anion Gap 7 mmol/L; Carbon Dioxide 26 mmol/L (22-30); Chloride 104 mmol/L (98-107); Glucose 100 mg/dL (74-99); Non-African American GFR(CKD) >90 (>60 ml/min/1.73 sqM); Sodium 137 mmol/L (137-145); Total Protein 7.3 g/dL (6.3-8.2)
[2022-03-08 10:27] LABS: ALT 13 U/L (4-49); AST 48 U/L (17-59); Alkaline Phosphatase 133 U/L (38-126); Blood Urea Nitrogen 6 mg/dL (9-20); Calcium 9.1 mg/dL (8.4-10.2); Total Bilirubin 0.4 mg/dL (0.2-1.3)
--- NOTE | 2022-03-08 10:38 | P.PN ---
Subjective Progress Note Date: 03/08/22 Principal diagnosis: Aspiration pneumonia Patient without complaints. Resting comfortably in bed. Today's x-ray shows improved aeration. He is afebrile. No family at bedside. Objective - Vital Signs Vital signs: Vital Signs Temp 100.1 F H 03/08/22 08:00 Pulse 93 03/08/22 08:22 Resp 18 03/08/22 08:00 BP 133/81 03/08/22 08:00 Pulse Ox 96 03/08/22 08:14 FiO2 50 03/06/22 12:00 Intake & Output 03/07/22 03/08/22 03/08/22 18:59 06:59 18:59 Intake Total 1350 0 Output Total 1200 Balance 150 0 Weight 47.627 kg Intake: Intake, IV Titration 1100 Amount Piperacillin-Tazobactam 3 100 .375 gm In Sodium Chloride 0.9% 100 ml @ 25 mls/hr IVPB Q8HR [facility] Rx# :[id number] Sodium Chloride 0.9% 1, 1000 000 ml @ 130 mls/hr IV . Q7H42M [facility] Rx#:[id number] Oral 250 0 Output: Urine 1200 Other: Voiding Method Diaper Diaper External Catheter External Catheter - Exam Abdomen: Soft, nontender, nondistended - Labs CBC & Chem 7: 03/08/22 09:30 03/05/22 09:08 Labs: Abnormal Lab Results - Last 24 Hours (Table) 03/08/22 Range/Units 09:30 WBC 16.4 H (3.8-10.6) k/uL RBC 4.02 L (4.30-5.90) m/uL Hgb 11.0 L (13.0-17.5) gm/dL Hct 35.7 L (39.0-53.0) % MCHC 30.9 L (31.0-37.0) g/dL RDW 20.0 H (11.5-15.5) % Neutrophils # (Manual) 12.90 H (1.3-7.7) k/uL Monocytes # (Manual) 1.15 H (0-1.0) k/uL Nucleated RBCs 1 H (0-0) /100 WBC Microbiology - Last 24 Hours (Table) 03/04/22 14:16 Blood Culture - Preliminary Blood No Growth after 72 hours 03/04/22 14:32 Blood Culture - Preliminary Blood No Growth after 72 hours Assessment and Plan (1) Aspiration pneumonia Narrative/Plan: 36-year-old male with recurrent aspiration pneumonia. Patient is on a diet per speech pathology. Continue IV antibiotics. Call the patient's mother by phone and no answer at this time. We'll reattempt contact to discuss their decision regarding enteral feeding later today or tomorrow. Current Visit: Yes Status: Acute Code(s): J69.0 - PNEUMONITIS DUE TO INHALAT ION OF FOOD AND VOMIT SNOMED Code(s): 489356725
[2022-03-08 10:42] LABS: Potassium 5.1 mmol/L (3.5-5.1)
--- NOTE | 2022-03-08 12:05 | P.PN ---
Subjective Progress Note Date: 03/08/22 Principal diagnosis: Chronic aspiration pneumonia. On today's evaluation of 02/28/2022, the father the bedside is telling me that the patient is slightly more lethargic compared to yesterday. The patient does not communicate. Upon stimulation, he was able to open up his eyes. He is breathing is nonlabored. He is on a on partial nonrebreather facemask and the patient's pulse ox is 98% at this point in time. His blood pressure was soft and 84/50 cm of water the patient remained continues to be on normal saline at the rate of 130 mL an hour. The blood work from today shows no significant leukocytosis. The white cell count 6.6 with a hemoglobin of 10 and a platelet count of 133. Electrodes are all within normal limits. Renal function stable. Cultures are negative for now. He remains on a combination of Zosyn and vancomycin. Patient was able to get some diet yesterday with assistance. Family is interested in a PEG tube insertion if he recovers from this acute event. 03/01/2022, the patient's condition is essentially the same as yesterday. Repeat chest x-ray was done and the patient was found to have still persistent consolidation of the left lung. The patient is being fed through family members. The patient remains on IV Zosyn and vancomycin. No seizure activity has been noted. Electrodes are stable. The white cell count is at 7.6 with a hemoglobin of 10.6. The patient is using a partial nonrebreather facemask and his current pulse ox 96% and his breathing is nonlabored at this point in time. 03/02/2022, condition essentially unchanged. The patient was brought down to 12 L partial nonrebreather facemask and the pulse ox is around 96%. Breathing remains nonlabored and the patient is hemodynamically stable. Labs are unchanged and the patient has a white count of 5.7 with a hemoglobin of 9.8 and a platelet count of 135. BUN is at 80 the creatinine 0.4 and sodium level is up to 144. Remains on IV Zosyn for now. 03/03/2022, the patient's chest x-ray showing improvement in the right lung consolidation. The patient remains on IV Zosyn. Clinically, the patient seems to be quite comfortable and his breathing is nonlabored. The white cell count at 5.0 with a hemoglobin of 10.3 and a platelet count of 147. Rest of the blood work and electrolytes are all within normal limits. The patient has been weaned down to 50% Ventimask and the partial nonrebreather facemask has been discontinued. No significant cough or sputum production. Progress note dated 03/04/2022. The patient's most recent chest x-ray does show improvement in the opacity in the left lung. The patient's mother is in agreement for placement of a PEG tu be. Surgery will be consulted. I did explain the procedure to her. Laboratory data includes a white count 7.1, inguinal him 10.2, hematocrit 33.4, and a platelet count of 159,000. Sodium, potassium, chloride, CO2, anion gap, are all normal. BUN was 5 with a creatinine 0.42. Albumin is 3. Chest x-ray from March 03 of show improvement. The patient continues on Zosyn. Progress note dated 03/05/2022. The patient is to be scheduled for a PEG tube placement. The patient does suffer from chronic aspiration. We did speak to the patient's mother yesterday. Currently, the patient's resting comfortably. The patient is currently on a 50% Venturi mask. White count 8.4, hemoglobin 10.6, hematocrit 34.4, and platelet count 186,000. Sodium 142, potassium 4.1, chlorides 107, CO2 27, BUN 4, creatinine 0.42. Albumin is 3.2. Blood cultures are currently negative. Progress note dated 03/06/2022. This is a 46-year-old male who has a history of developmental delay. The patient is currently being evaluated for PEG tube placement. The patient has a history of chronic aspiration pneumonia. Currently, the patient appears to be relatively stable. He remains on a 50% Venturi mask. He is not able to give any additional history. He appears in no acute distress. No new labs today. Chest x-ray from March 05 shows persistent left-sided consolidation and small pleural effusion. There is some right basilar atelectasis as well. Progress note dated 03/08/2022. Currently, the patient's doing about the same. His repeat chest x-ray is about the same. Apparently the family still deciding whether or not we will transfer him to [facility], for PEG tube insertion. The PEG tube was attempted here, but could not be done. The patient remains on Zosyn in the form of antibiotic. White count 16.4, hemoglobin 11, hematocrit 35.7, and platelet count normal. Sodium 137, potassium 5.1, chlorides 104, CO2 26, with a BUN of 6 and a creatinine of 0.40. Blood cultures thus far are negative. Chest x-ray as mentioned above, is unchanged. Objective - Vital Signs Vital signs: Vital Signs Temp 100.1 F H 03/08/22 08:00 Pulse 109 H 03/08/22 11:44 Resp 18 03/08/22 08:00 BP 133/81 03/08/22 08:00 Pulse Ox 96 03/08/22 08:14 FiO2 50 03/06/22 12:00 Intake & Output 03/07/22 03/08/22 03/08/22 18:59 06:59 18:59 Intake Total 1350 0 Output Total 1200 425 Balance 150 -425 Weight 47.627 kg 49 kg Intake: Intake, IV Titration 1100 Amount Piperacillin-Tazobactam 3 100 .375 gm In Sodium Chloride 0.9% 100 ml @ 25 mls/hr IVPB Q8HR [facility] Rx# :[id number] Sodium Chloride 0.9% 1, 1000 000 ml @ 130 mls/hr IV . Q7H42M [facility] Rx#:[id number] Oral 250 0 Output: Urine 1200 425 Other: Voiding Method Diaper Diaper Diaper External Catheter External Catheter External Catheter - Exam No acute distress, oriented 3. The patient is currently on 2 L nasal cannula, with saturations of 96%. HEENT examination is grossly unremarkable. Neck supple. Full range of motion. No adenopathy thyromegaly or neck vein distention. Cardiovascular examination reveals regular rhythm rate. S1-S2 normal. No S3 or S4. No discernible murmur noted. Heart sounds are distant. Heart rate 91 bpm. Lungs reveal mostly clear breath sounds. Coarse rhonchi noted particularly in the left. Scattered crackles on the right. No wheezes. Breath sounds are diminished throughout. Abdomen soft bowel sounds are heard. No masses or tenderness. Extremities are intact. No cyanosis clubbing or edema. Skin is without rash or lesion. Neurologic examination is difficult to evaluate given his developmental delay. - Labs CBC & Chem 7: 03/08/22 09:30 03/08/22 09:30 Labs: Abnormal Lab Results - Last 24 Hours (Table) 03/08/22 03/08/22 Range/Units 09:30 09:30 WBC 16.4 H (3.8-10.6) k/uL RBC 4.02 L (4.30-5.90) m/uL Hgb 11.0 L (13.0-17.5) gm/dL Hct 35.7 L (39.0-53.0) % MCHC 30.9 L (31.0-37.0) g/dL RDW 20.0 H (11.5-15.5) % Neutrophils # (Manual) 12.90 H (1.3-7.7) k/uL Monocytes # (Manual) 1.15 H (0-1.0) k/uL Nucleated RBCs 1 H (0-0) /100 WBC BUN 6 L (9-20) mg/dL Creatinine 0.40 L (0.66-1.25) mg/dL Glucose 100 H (74-99) mg/dL Alkaline Phosphatase 133 H (38-126) U/L Albumin 3.2 L (3.5-5.0) g/dL Microbiology - Last 24 Hours (Table) 03/04/22 14:16 Blood Culture - Preliminary Blood No Growth after 72 hours 03/04/22 14:32 Blood Culture - Preliminary Blood No Growth after 72 hours Assessment and Plan Assessment: Acute hypoxemic respiratory failure, secondary to aspiration pneumonia. Recurrent aspiration, with anticipation of PEG tube placement in the near future. Recent hospitalization for pneumonia and hypoxemic respiratory failure. History of seizure disorder. History of developmental delay. Patient is nonverbal. Previous history of meningitis with brain injury, as an infant. Plan: Plan dated 03/04/2022. The patient's mother does agree for PEG tube placement. The patient is a DO NOT RESUSCITATE patient. The patient remains on Zosyn. The patient should be on aspiration precautions, with head of bed elevated at all times. We will continue to follow. Prognosis is guarded. The patient remains on substantial amounts of oxygen therapy. We will continue to follow make recommendations where appropriate. Plan dated 03/05/2022. The patient will have a PEG tube placed, in the near future. We discussed this with the patient's mother, and the surgeon. Labs, x-rays, and medications all reviewed. Overall prognosis remains guarded. The patient should be an aspiration precautions. We will continue to follow make recommendations where appropriate. The patient is a DO NOT RESUSCITATE patient. I believe that to be appropriate. Plan dated 03/06/2022. Patient appears to be doing relatively well. Patient is currently nothing by [facility] for possible PEG tube placement. The patient remains on antibiotics. Blood cultures have been negative. The patient cannot give us a sputum sample. The patient remains on Zosyn. The patient is a DO NOT RESUSCITATE patient. We will continue to follow and make recommendations where appropriate. Prognosis is certainly guarded. Plan dated 03/08/2022. The patient continues on antibiotic. Chest x-rays essentially unchanged. The family is still trying to decide whether or not to transfer the patient. The PEG tube was attempted here, but could not be done. Labs, x-rays, and medicati ons are reviewed. In my opinion, the x-ray is unchanged. Blood cultures are thus far negative. The patient is a DO NOT RESUSCITATE patient. We will continue to follow make recommendations where appropriate. Time with Patient: Less than 30
[2022-03-08] MEDS: ACETAMINOPHEN IV (For NPO) 750 MG in EMPTY BAG 1 BAG IVPB PRN (13:32)
--- NOTE | 2022-03-08 13:51 | P.PN ---
Subjective Progress Note Date: 03/08/22 Tolu Sánchez, is a 36-year-old male who presented to [facility] emergency room due to increased somnolence and shortness of breath. He was evaluated in the emergency room vital examination on presentation revealed a temperature of 97.3 pulse 101 respiration 22 blood pressure 115/68 pulse ox 98% on room air Laboratory data revealed a white blood count of 5.2 hemoglobin 11.2 platelet co unt 205 sodium 139 potassium 3.2 chloride 100 CO2 26 BUN 20 creatinine 0.48 Testing in the emergency room revealed chest x-ray done in the emergency room revealed large infiltrate and/or opacification with air bronchogram within the left lung, EKG done in the emergency room revealed sinus tachycardia with right ventricular hypertrophy. Patient was admitted to medical floor for further evaluation and treatment, he was started on IV antibiotics, pulmonary consultation was requested. On 02/28/2022 patient is resting in bed currently maintained on partial nonrebreather. Current vitals temp 97.6, pulse rate 72, respiratory rate 18 blood pressure 97/64 patient stating 98% on partial rebreather at 15 L. Patient remains on IV vancomycin. Infectious disease services have been consulted. Currently blood cell count 6.6. On 03/01/2022 patient remains on partial nonrebreather. Infectious disease and pulmonary services are following this session was held with family per infectious PEG tube placement. Vitals temp 97.4, heart rate 78, respiratory rate 16, blood pressure 100/60 patient satting 98% on partial rebreather 15 L On 03/02/2022 patient was seen and examined on the medical floor he is alert nonverbal in no apparent distress, nurse denies any events or any new complaints, patient is maintained on partial nonrebreather mask on 12 L his vital exam reveals a temperature of 97.4 pulse 67 respiration 18 blood pressure 124/68 pulse ox 96% laboratory data reveals a white blood count of 5.7 hemoglobin 9.8 platelet count 139 BUN is 8 creatinine 0.42 he remains on IV antibiotic Zosyn, pulmonary and infectious disease are following, repeat chest x-ray is ordered for tomorrow On 03/03/2022 patient was seen and examined on the medical floor he is alert, nonverbal in no apparent distress vital examination reveals a temperature of 98 pulse 73 respiration 16 blood pressure 108/70 pulse ox 93% on Ventimask with FiO2 of 50% laboratory data reveals a white blood count of 5.1 hemoglobin 10.3 platelet count 147 BUN 6 creatinine 0.38 On 03/04/2022 patient is resting comfortably in bed. Patient remains on Ventimask. Current vital signs temp 9070, pulse rate 87, respiratory rate 20, blood pressure 140/76. Patient remains on IV Zosyn pulmonary and infectious disease services are following On 03/05/2022 patient was seen and examined on the medical floor he is alert nonverbal in no apparent distress he is still maintained on high flow oxygen no new episodes of fever, temperature is 90.7 pulse 100 respiration 20 blood pressure 159/78 pulse ox 97% on Ventimask white blood count is 8.4 hemoglobin 10.6 platelet count 186 chest x-ray reveals bilateral infiltrates On 03/06/2022 patient was seen and examined on the medical floor he is alert nonverbal in no apparent distress, he is still maintained on oxygen via Ventimask, chest x-ray with minimal improvement, patient is scheduled today for PEG tube placement, will follow closely. 03/07/2022 patient is resting comfortably in bed. Patient is now on 2 L nasal cannula satting 96%. Per surgical services attempt was made for PEG tube placement but was unable to place peg tube due to anatomy. Per surgical services will further discussed with parents in regards to next options for PEG tube placement. Patient remains on IV Zosyn and ID pulmonary and surgical services are following. On 03/08/2022 patient was seen and examined on the medical floor he is alert nonverbal in no apparent distress, temperature is elevated today at 102 pulse 109 respiration 18 blood pressure 128/75 pulse ox 95% on 3 L nasal cannula, whi te blood count up to 16.4 from 8.4 yesterday hemoglobin 11 platelet count 313, at this time will add IV Tylenol, increase IV fluid to 125 mL/h, PEG tube was attempted and failed here, family is deciding whether they want patient transferred to [facility] for possible PEG tube placement Objective - Vital Signs Vital signs: Vital Signs Temp 102 F H 03/08/22 12:00 Pulse 110 H 03/08/22 12:00 Resp 18 03/08/22 12:00 BP 128/75 03/08/22 12:00 Pulse Ox 95 03/08/22 12:00 FiO2 50 03/06/22 12:00 Intake & Output 03/07/22 03/08/22 03/08/22 18:59 06:59 18:59 Intake Total 1350 0 Output Total 1200 425 Balance 150 -425 Weight 47.627 kg 49 kg Intake: Intake, IV Titration 1100 Amount Piperacillin-Tazobactam 3 100 .375 gm In Sodium Chloride 0.9% 100 ml @ 25 mls/hr IVPB Q8HR [facility] Rx# :[id number] Sodium Chloride 0.9% 1, 1000 000 ml @ 130 mls/hr IV . Q7H42M [facility] Rx#:[id number] Oral 250 0 Output: Urine 1200 425 Other: Voiding Method Diaper Diaper Diaper External Catheter External Catheter External Catheter - Exam In general patient is somnolent responsive only to repeated stimuli HEENT head normocephalic and atraumatic Neck is supple no JVD no goiter no lymphadenopathy no carotid bruit Chest examination reveals a crackles in both lung galicia no wheezing Cardiac exam reveals regular heart sounds S1 and S2 no gallops no murmurs Abdomen is soft nontender no organomegaly with normal bowel sounds Extremity exam reveals no edema no cyanosis or clubbing Neurological examination reveals no gross focal deficits - Labs CBC & Chem 7: 03/08/22 09:30 03/08/22 09:30 Labs: Abnormal Lab Results - Last 24 Hours (Table) 03/08/22 03/08/22 Range/Units 09:30 09:30 WBC 16.4 H (3.8-10.6) k/uL RBC 4.02 L (4.30-5.90) m/uL Hgb 11.0 L (13.0-17.5) gm/dL Hct 35.7 L (39.0-53.0) % MCHC 30.9 L (31.0-37.0) g/dL RDW 20.0 H (11.5-15.5) % Neutrophils # (Manual) 12.90 H (1.3-7.7) k/uL Monocytes # (Manual) 1.15 H (0-1.0) k/uL Nucleated RBCs 1 H (0-0) /100 WBC BUN 6 L (9-20) mg/dL Creatinine 0.40 L (0.66-1.25) mg/dL Glucose 100 H (74-99) mg/dL Alkaline Phosphatase 133 H (38-126) U/L Albumin 3.2 L (3.5-5.0) g/dL Microbiology - Last 24 Hours (Table) 03/04/22 14:16 Blood Culture - Preliminary Blood No Growth after 72 hours 03/04/22 14:32 Blood Culture - Preliminary Blood No Growth after 72 hours Assessment and Plan Plan: Acute pneumonia possibly related to aspiration pneumonia Acute hypoxic respiratory failure Previous episodes of aspiration pneumonia including recently in November 2021 Underlying history of developmental delay with severe physical and mental debility patient requires 24-hour care Underlying history of seizure disorder Remote 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
[2022-03-08] MEDS: IBUPROFEN 400 MG TAB PO PRN (16:53)
[2022-03-08] MEDS: SODIUM CHLORIDE 0.9% 1,000 ML IV SCH ×2 (18:03→20:00)
--- NOTE | 2022-03-08 20:03 | P.PN ---
Subjective Progress Note Date: 03/07/22 Principal diagnosis: Recurrent aspiration pneumonia Patient is a 36 year old male with mental and developmental delay admitted to the hospital with increasing shortness of breath and concerning for extensive left-sided pneumonia likely aspiration etiology. Patient did have EGD and attempted to place a PEG tube placement which was not successful on 03/06/2022 On today's evaluation that is 03/07/2022, patient remains to be afebrile, the patient is breathing comfortably on nasal cannula oxygen and was being fed by his father without any choking noticed, the patient is hemodynamically stable, no vomiting or diarrhea reported by the nursing staff Objective - Vital Signs Vital signs: Vital Signs Temp 98.8 F 03/07/22 08:00 Pulse 76 03/07/22 12:30 Resp 18 03/07/22 12:03 BP 134/73 03/07/22 12:03 Pulse Ox 96 03/07/22 12:03 FiO2 50 03/06/22 12:00 Intake & Output 03/06/22 03/07/22 03/07/22 18:59 06:59 18:59 Intake Total 200 800 Output Total 1150 300 Balance -950 500 Weight 47.627 kg Intake: IV 200 Intake, IV Titration 800 Amount IV Fluid Continuation 1, 350 000 ml @ 0 mls/hr IV .[facility] Rx#:[id number] Piperacillin-Tazobactam 3 100 .375 gm In Sodium Chloride 0.9% 100 ml @ 25 mls/hr IVPB Q8HR [facility] Rx# :[id number] Sodium Chloride 0.9% 1, 350 000 ml @ 130 mls/hr IV . Q7H42M [facility] Rx#:[id number] Output: Urine 1150 300 Other: Voiding Method Diaper Diaper Diaper External Catheter External Catheter External Catheter # Voids 2 - Exam GENERAL DESCRIPTION: Middle-aged male lying in bed in no distress RESPIRATORY SYSTEM: Unlabored breathing , coarse Bilaterally HEART: S1 S2 regular rate and rhythm , ABDOMEN: Soft , no tenderness EXTREMITIES: No edema feet - Labs CBC & Chem 7: 03/08/22 09:30 03/08/22 09:30 Labs: Microbiology - Last 24 Hours (Table) 03/04/22 14:16 Blood Culture - Preliminary Blood No Growth after 48 hours 03/04/22 14:32 Blood Culture - Preliminary Blood No Growth after 48 hours Assessment and Plan (1) Pneumonia Current Visit: Yes Status: Acute Code(s): J18.9 - PNEUMONIA, UNSPECIFIED ORGANISM SNOMED Code(s): 917770530 Plan: 1patient presented to hospital with increasing shortness of breath with evidence of extensive pneumonia on the left lung likely secondary to aspiration in this patient with underlying mental impairment. 2patient did have attempted PEG tube placement via EGD which was not successful now plan for possible open versus laparoscopic feeding tube placement , 3- blood culture negative sputum could not be collected 3 patient to continue with Zosyn and monitor clinical course closely Time with Patient: Less than 30
--- NOTE | 2022-03-08 20:04 | P.PN ---
Subjective Progress Note Date: 03/08/22 Principal diagnosis: Recurrent aspiration pneumonia Patient is a 36 year old male with mental and developmental delay admitted to the hospital with increasing shortness of breath and concerning for extensive left-sided pneumonia likely aspiration etiology. Patient did have EGD and attempted to place a PEG tube placement which was not successful on 03/06/2022 On today's evaluation that is 03/08/2022, patient continues to be afebrile, the patient is breathing comfortably on nasal cannula oxygen, no vomiting or diarrhea reported by the nursing staff Objective - Vital Signs Vital signs: Vital Signs Temp 102 F H 03/08/22 12:00 Pulse 107 H 03/08/22 16:13 Resp 18 03/08/22 12:00 BP 128/75 03/08/22 12:00 Pulse Ox 98 03/08/22 16:02 FiO2 50 03/06/22 12:00 Intake & Output 03/07/22 03/08/22 03/08/22 18:59 06:59 18:59 Intake Total 1350 0 Output Total 1200 425 Balance 150 -425 Weight 47.627 kg 49 kg Intake: Intake, IV Titration 1100 Amount Piperacillin-Tazobactam 3 100 .375 gm In Sodium Chloride 0.9% 100 ml @ 25 mls/hr IVPB Q8HR [facility] Rx# :[id number] Sodium Chloride 0.9% 1, 1000 000 ml @ 130 mls/hr IV . Q7H42M [facility] Rx#:[id number] Oral 250 0 Output: Urine 1200 425 Other: Voiding Method Diaper Diaper Diaper External Catheter External Catheter External Catheter - Exam GENERAL DESCRIPTION: Middle-aged male lying in bed in no distress RESPIRATORY SYSTEM: Unlabored breathing , coarse Bilaterally HEART: S1 S2 regular rate and rhythm , ABDOMEN: Soft , no tenderness EXTREMITIES: No edema feet - Labs CBC & Chem 7: 03/08/22 09:30 03/08/22 09:30 Labs: Abnormal Lab Results - Last 24 Hours (Table) 03/08/22 03/08/22 Range/Units 09:30 09:30 WBC 16.4 H (3.8-10.6) k/uL RBC 4.02 L (4.30-5.90) m/uL Hgb 11.0 L (13.0-17.5) gm/dL Hct 35.7 L (39.0-53.0) % MCHC 30.9 L (31.0-37.0) g/dL RDW 20.0 H (11.5-15.5) % Neutrophils # (Manual) 12.90 H (1.3-7.7) k/uL Monocytes # (Manual) 1.15 H (0-1.0) k/uL Nucleated RBCs 1 H (0-0) /100 WBC BUN 6 L (9-20) mg/dL Creatinine 0.40 L (0.66-1.25) mg/dL Glucose 100 H (74-99) mg/dL Alkaline Phosphatase 133 H (38-126) U/L Albumin 3.2 L (3.5-5.0) g/dL Microbiology - Last 24 Hours (Table) 03/04/22 14:16 Blood Culture - Preliminary Blood No Growth after 72 hours 03/04/22 14:32 Blood Culture - Preliminary Blood No Growth after 72 hours Assessment and Plan (1) Pneumonia Current Visit: Yes Status: Acute Code(s): J18.9 - PNEUMONIA, UNSPECIFIED ORGANISM SNOMED Code(s): 021532597 Plan: 1patient presented to hospital with increasing shortness of breath with evidence of extensive pneumonia on the left lung likely secondary to aspiration in this patient with underlying mental impairment. 2patient did have attempted PEG tube placement via EGD which was not successful now plan for possible open versus laparoscopic feeding tube placement , 3- blood culture negative sputum could not be collected 3 patient has shown some clinical improvement and well continue with Zosyn and monitor clinical course closely Time with Patient: Less than 30
[2022-03-09] MEDS: LORazepam 0.5 MG TAB PO SCH ×3 (06:01→16:54)
[2022-03-09] MEDS: TOPIRAMATE 15 MG PO SCH ×2 (06:01→16:54)
[2022-03-09] MEDS: risperiDONE 0.25 MG TAB PO SCH (06:01)
[2022-03-09] MEDS: DIVALPROEX SPRINKLE 125 MG CAP.SPRINK PO SCH ×2 (06:01→16:54)
[2022-03-09] MEDS: SODIUM CHLORIDE 0.9% 1,000 ML IV SCH ×4 (06:03→23:00)
[2022-03-09] MEDS: IPRATROPIUM-ALBUTEROL 3 ML NEB INHALATION SCH ×4 (07:59→19:39)
[2022-03-09] MEDS: ENOXAPARIN 30 MG/0.3 ML SYRINGE SQ SCH (08:55)
[2022-03-09] MEDS: PIPERACILLIN-TAZOBACTAM 3.375 GM in SODIUM CHLORIDE 0.9% 100 ML IVPB SCH ×2 (08:56→16:55)
[2022-03-09 09:13] LABS: ALT 14 U/L (4-49); AST 60 U/L (17-59); African American GFR (CKD) >90 (>60 ml/min/1.73 sqM); Albumin 2.4 g/dL (3.5-5.0); Alkaline Phosphatase 99 U/L (38-126); Anion Gap 5 mmol/L; Blood Urea Nitrogen 8 mg/dL (9-20); Calcium 8.5 mg/dL (8.4-10.2); Carbon Dioxide 26 mmol/L (22-30); Chloride 108 mmol/L (98-107); Glucose 81 mg/dL (74-99); Non-African American GFR(CKD) >90 (>60 ml/min/1.73 sqM); Potassium 4.4 mmol/L (3.5-5.1); Sodium 139 mmol/L (137-145); Total Bilirubin 0.2 mg/dL (0.2-1.3); Total Protein 5.9 g/dL (6.3-8.2)
[2022-03-09 09:17] LABS: Anisocytosis Slight; Basophils # (A) 0.1 k/uL (0-0.2); Basophils % (A) 0 %; Eosinophils # (A) 0.1 k/uL (0-0.7); Eosinophils % (A) 0 %; HCT 30.9 % (39.0-53.0); HGB 9.5 gm/dL (13.0-17.5); Hypochromasia Slight; Lymphocytes # (A) 1.6 k/uL (1.0-4.8); Lymphocytes % (A) 5 %; MCH 27.6 pg (25.0-35.0); MCHC 30.6 g/dL (31.0-37.0); Mean Platelet Volume 8.2; Monocytes # (A) 4.1 k/uL (0-1.0); Monocytes % (A) 14 %; Neutrophils # (A) 24.1 k/uL (1.3-7.7); Neutrophils % (A) 79 %; Platelet Count 276 k/uL (150-450); RBC 3.43 m/uL (4.30-5.90); RDW 19.4 % (11.5-15.5); WBC 30.4 k/uL (3.8-10.6)
--- NOTE | 2022-03-09 09:44 | P.PN ---
Subjective Progress Note Date: 03/09/22 Tolu Sánchez, is a 36-year-old male who presented to [facility] emergency room due to increased somnolence and shortness of breath. He was evaluated in the emergency room vital examination on presentation revealed a temperature of 97.3 pulse 101 respiration 22 blood pressure 115/68 pulse ox 98% on room air Laboratory data revealed a white blood count of 5.2 hemoglobin 11.2 platelet co unt 205 sodium 139 potassium 3.2 chloride 100 CO2 26 BUN 20 creatinine 0.48 Testing in the emergency room revealed chest x-ray done in the emergency room revealed large infiltrate and/or opacification with air bronchogram within the left lung, EKG done in the emergency room revealed sinus tachycardia with right ventricular hypertrophy. Patient was admitted to medical floor for further evaluation and treatment, he was started on IV antibiotics, pulmonary consultation was requested. On 02/28/2022 patient is resting in bed currently maintained on partial nonrebreather. Current vitals temp 97.6, pulse rate 72, respiratory rate 18 blood pressure 97/64 patient stating 98% on partial rebreather at 15 L. Patient remains on IV vancomycin. Infectious disease services have been consulted. Currently blood cell count 6.6. On 03/01/2022 patient remains on partial nonrebreather. Infectious disease and pulmonary services are following this session was held with family per infectious PEG tube placement. Vitals temp 97.4, heart rate 78, respiratory rate 16, blood pressure 100/60 patient satting 98% on partial rebreather 15 L On 03/02/2022 patient was seen and examined on the medical floor he is alert nonverbal in no apparent distress, nurse denies any events or any new complaints, patient is maintained on partial nonrebreather mask on 12 L his vital exam reveals a temperature of 97.4 pulse 67 respiration 18 blood pressure 124/68 pulse ox 96% laboratory data reveals a white blood count of 5.7 hemoglobin 9.8 platelet count 139 BUN is 8 creatinine 0.42 he remains on IV antibiotic Zosyn, pulmonary and infectious disease are following, repeat chest x-ray is ordered for tomorrow On 03/03/2022 patient was seen and examined on the medical floor he is alert, nonverbal in no apparent distress vital examination reveals a temperature of 98 pulse 73 respiration 16 blood pressure 108/70 pulse ox 93% on Ventimask with FiO2 of 50% laboratory data reveals a white blood count of 5.1 hemoglobin 10.3 platelet count 147 BUN 6 creatinine 0.38 On 03/04/2022 patient is resting comfortably in bed. Patient remains on Ventimask. Current vital signs temp 9070, pulse rate 87, respiratory rate 20, blood pressure 140/76. Patient remains on IV Zosyn pulmonary and infectious disease services are following On 03/05/2022 patient was seen and examined on the medical floor he is alert nonverbal in no apparent distress he is still maintained on high flow oxygen no new episodes of fever, temperature is 90.7 pulse 100 respiration 20 blood pressure 159/78 pulse ox 97% on Ventimask white blood count is 8.4 hemoglobin 10.6 platelet count 186 chest x-ray reveals bilateral infiltrates On 03/06/2022 patient was seen and examined on the medical floor he is alert nonverbal in no apparent distress, he is still maintained on oxygen via Ventimask, chest x-ray with minimal improvement, patient is scheduled today for PEG tube placement, will follow closely. 03/07/2022 patient is resting comfortably in bed. Patient is now on 2 L nasal cannula satting 96%. Per surgical services attempt was made for PEG tube placement but was unable to place peg tube due to anatomy. Per surgical services will further discussed with parents in regards to next options for PEG tube placement. Patient remains on IV Zosyn and ID pulmonary and surgical services are following. On 03/08/2022 patient was seen and examined on the medical floor he is alert nonverbal in no apparent distress, temperature is elevated today at 102 pulse 109 respiration 18 blood pressure 128/75 pulse ox 95% on 3 L nasal cannula, i te blood count up to 16.4 from 8.4 yesterday hemoglobin 11 platelet count 313, at this time will add IV Tylenol, increase IV fluid to 125 mL/h, PEG tube was attempted and failed here, family is deciding whether they want patient transferred to [facility] for possible PEG tube placement On 03/09/2022 patient is alert but nonverbal resting in bed. remains on IV Zosyn. Patient having elevated temperature and white count discussed with nursing staff to make infectious disease aware for any potential change in antibiotic. Current vital signs temp 99.4, heart rate 105, blood pressure 101 /55 with a pulse ox of 99% on 2 L. Awaiting family decision in regards to possible transfer for PEG tube placement Objective - Vital Signs Vital signs: Vital Signs Temp 99.4 F 03/08/22 20:00 Pulse 108 H 03/09/22 08:12 Resp 16 03/09/22 04:00 BP 101/55 03/09/22 04:00 Pulse Ox 99 03/09/22 07:59 FiO2 50 03/06/22 12:00 Intake & Output 03/08/22 03/09/22 03/09/22 18:59 06:59 18:59 Intake Total 0 Output Total 425 900 Balance -425 -900 Weight 49 kg Intake: Oral 0 Output: Urine 425 900 Other: Voiding Method Diaper Diaper External Catheter External Catheter - Exam In general patient is somnolent responsive only to repeated stimuli HEENT head normocephalic and atraumatic Neck is supple no JVD no goiter no lymphadenopathy no carotid bruit Chest examination reveals a crackles in both lung galicia no wheezing Cardiac exam reveals regular heart sounds S1 and S2 no gallops no murmurs Abdomen is soft nontender no organomegaly with normal bowel sounds Extremity exam reveals no edema no cyanosis or clubbing Neurological examination reveals no gross focal deficits - Labs CBC & Chem 7: 03/08/22 09:30 03/09/22 08:18 Labs: Abnormal Lab Results - Last 24 Hours (Table) 03/08/22 03/08/22 03/09/22 Range/Units 09:30 09:30 08:18 WBC 16.4 H (3.8-10.6) k/uL RBC 4.02 L (4.30-5.90) m/uL Hgb 11.0 L (13.0-17.5) gm/dL Hct 35.7 L (39.0-53.0) % MCHC 30.9 L (31.0-37.0) g/dL RDW 20.0 H (11.5-15.5) % Neutrophils # (Manual) 12.90 H (1.3-7.7) k/uL Monocytes # (Manual) 1.15 H (0-1.0) k/uL Nucleated RBCs 1 H (0-0) /100 WBC Chloride 108 H (98-107) mmol/L BUN 6 L 8 L (9-20) mg/dL Creatinine 0.40 L 0.41 L (0.66-1.25) mg/dL Glucose 100 H (74-99) mg/dL AST 60 H (17-59) U/L Alkaline Phosphatase 133 H (38-126) U/L Total Protein 5.9 L (6.3-8.2) g/dL Albumin 3.2 L 2.4 L (3.5-5.0) g/dL Microbiology - Last 24 Hours (Table) 03/04/22 14:16 Blood Culture - Preliminary Blood No Growth after 96 hours 03/04/22 14:32 Blood Culture - Preliminary Blood No Growth after 96 hours Assessment and Plan Plan: Acute pneumonia possibly related to aspiration pneumonia Acute hypoxic respiratory failure Previous episodes of aspiration pneumonia including recently in November 2021 Underlying history of developmental delay with severe physical and mental debility patient requires 24-hour care Underlying history of seizure disorder 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
[2022-03-09 10:06] LABS: Poikilocytosis (M) Present; Toxic Granulation Present
--- NOTE | 2022-03-09 11:11 | XR ---
EXAMINATION TYPE: XR chest 1V portable DATE OF EXAM: 03/09/2022 COMPARISON: 03/08/2022 HISTORY: Pneumonia TECHNIQUE: Single frontal view of the chest is obtained. FINDINGS: Bilateral diffuse airspace disease with pleural effusion. Small right effusion with diffus e interstitial pattern. Patient is rotated limits assessment of the mediastinum and cardiac silhouett e. No obvious pneumothorax. Limited inspiration. IMPRESSION: 1. Persistent large area of consolidation involving the left lung with diffuse interstitial pattern. Correlate for pneumonia with superimposed interstitial pneumonitis for CHF.
--- NOTE | 2022-03-09 11:23 | P.PN ---
Subjective Progress Note Date: 03/09/22 Principal diagnosis: Aspiration pneumonia Patient appears comfortable in bed. Does not appear to be dyspneic currently. No issues overnight per nursing staff. White blood cell count has increased significantly to 30,000. Remains somewhat tachycardic. Objective - Vital Signs Vital signs: Vital Signs Temp 98.3 F 03/09/22 08:00 Pulse 108 H 03/09/22 08:12 Resp 18 03/09/22 08:00 BP 120/66 03/09/22 08:00 Pulse Ox 98 03/09/22 08:00 FiO2 50 03/06/22 12:00 Intake & Output 03/08/22 03/09/22 03/09/22 18:59 06:59 18:59 Intake Total 0 Output Total 425 900 Balance -425 -900 Weight 49 kg Intake: Oral 0 Output: Urine 425 900 Other: Voiding Method Diaper Diaper Diaper External Catheter External Catheter External Catheter - Exam Abdomen: Soft, nontender, nondistended - Labs CBC & Chem 7: 03/09/22 08:18 03/09/22 08:18 Labs: Abnormal Lab Results - Last 24 Hours (Table) 03/09/22 03/09/22 Range/Units 08:18 08:18 WBC 30.4 H (3.8-10.6) k/uL RBC 3.43 L (4.30-5.90) m/uL Hgb 9.5 L D (13.0-17.5) gm/dL Hct 30.9 L (39.0-53.0) % MCHC 30.6 L (31.0-37.0) g/dL RDW 19.4 H (11.5-15.5) % Neutrophils # 24.1 H (1.3-7.7) k/uL Monocytes # 4.1 H (0-1.0) k/uL Chloride 108 H (98-107) mmol/L BUN 8 L (9-20) mg/dL Creatinine 0.41 L (0.66-1.25) mg/dL AST 60 H (17-59) U/L Total Protein 5.9 L (6.3-8.2) g/dL Albumin 2.4 L (3.5-5.0) g/dL Microbiology - Last 24 Hours (Table) 03/04/22 14:16 Blood Culture - Preliminary Blood No Growth after 96 hours 03/04/22 14:32 Blood Culture - Preliminary Blood No Growth after 96 hours Assessment and Plan (1) Aspiration pneumonia Narrative/Plan: 36-year-old male with recurrent aspiration. Today's x-ray shows persistent left-sided pneumonia. White blood cell count is higher today. The patient had fevers yesterday but improved today. Remains tachycardic. Spoke with patient's mother at length yesterday. They would like the patient to stay here rather than be transferred to another hospital. We'll tentatively plan laparoscopic da Bertha assisted placement of gastrostomy tube when medically stable. Will sche dule the procedure for tomorrow in the hopes that he can be stable enough for the procedure. Risks of bleeding, infection, inability to place feeding tube, conversion to an open procedure, fistula, leak, abscess, respiratory failure reviewed. She understands to proceed. Current Visit: Yes Status: Acute Code(s): J69.0 - PNEUMONITIS DUE TO INHALATION OF FOOD AND VOMIT SNOMED Code(s): 633475935
--- NOTE | 2022-03-09 13:02 | XR ---
EXAMINATION TYPE: XR humerus RT DATE OF EXAM: 03/09/2022 COMPARISON: NONE HISTORY: Pain TECHNIQUE: 2 views submitted. FINDINGS: There is diffuse osteopenia. There is a deformity of the mid diaphysis of the humerus suggestive of f racture likely is a more remote basis. IMPRESSION: 1. Marked deformity of the proximal diaphysis of the humerus suggest a previous fracture more likely a subacute to chronic age correlate clinically with point tenderness.
--- NOTE | 2022-03-09 14:01 | P.PN ---
Subjective Progress Note Date: 03/09/22 Principal diagnosis: Chronic aspiration pneumonia. On today's evaluation of 02/28/2022, the father the bedside is telling me that the patient is slightly more lethargic compared to yesterday. The patient does not communicate. Upon stimulation, he was able to open up his eyes. He is breathing is nonlabored. He is on a on partial nonrebreather facemask and the patient's pulse ox is 98% at this point in time. His blood pressure was soft and 84/50 cm of water the patient remained continues to be on normal saline at the rate of 130 mL an hour. The blood work from today shows no significant leukocytosis. The white cell count 6.6 with a hemoglobin of 10 and a platelet count of 133. Electrodes are all within normal limits. Renal function stable. Cultures are negative for now. He remains on a combination of Zosyn and vancomycin. Patient was able to get some diet yesterday with assistance. Family is interested in a PEG tube insertion if he recovers from this acute event. 03/01/2022, the patient's condition is essentially the same as yesterday. Repeat chest x-ray was done and the patient was found to have still persistent consolidation of the left lung. The patient is being fed through family members. The patient remains on IV Zosyn and vancomycin. No seizure activity has been noted. Electrodes are stable. The white cell count is at 7.6 with a hemoglobin of 10.6. The patient is using a partial nonrebreather facemask and his current pulse ox 96% and his breathing is nonlabored at this point in time. 03/02/2022, condition essentially unchanged. The patient was brought down to 12 L partial nonrebreather facemask and the pulse ox is around 96%. Breathing remains nonlabored and the patient is hemodynamically stable. Labs are unchanged and the patient has a white count of 5.7 with a hemoglobin of 9.8 and a platelet count of 135. BUN is at 80 the creatinine 0.4 and sodium level is up to 144. Remains on IV Zosyn for now. 03/03/2022, the patient's chest x-ray showing improvement in the right lung consolidation. The patient remains on IV Zosyn. Clinically, the patient seems to be quite comfortable and his breathing is nonlabored. The white cell count at 5.0 with a hemoglobin of 10.3 and a platelet count of 147. Rest of the blood work and electrolytes are all within normal limits. The patient has been weaned down to 50% Ventimask and the partial nonrebreather facemask has been discontinued. No significant cough or sputum production. Progress note dated 03/04/2022. The patient's most recent chest x-ray does show improvement in the opacity in the left lung. The patient's mother is in agreement for placement of a PEG tu be. Surgery will be consulted. I did explain the procedure to her. Laboratory data includes a white count 7.1, inguinal him 10.2, hematocrit 33.4, and a platelet count of 159,000. Sodium, potassium, chloride, CO2, anion gap, are all normal. BUN was 5 with a creatinine 0.42. Albumin is 3. Chest x-ray from March 03 of show improvement. The patient continues on Zosyn. Progress note dated 03/05/2022. The patient is to be scheduled for a PEG tube placement. The patient does suffer from chronic aspiration. We did speak to the patient's mother yesterday. Currently, the patient's resting comfortably. The patient is currently on a 50% Venturi mask. White count 8.4, hemoglobin 10.6, hematocrit 34.4, and platelet count 186,000. Sodium 142, potassium 4.1, chlorides 107, CO2 27, BUN 4, creatinine 0.42. Albumin is 3.2. Blood cultures are currently negative. Progress note dated 03/06/2022. This is a 46-year-old male who has a history of developmental delay. The patient is currently being evaluated for PEG tube placement. The patient has a history of chronic aspiration pneumonia. Currently, the patient appears to be relatively stable. He remains on a 50% Venturi mask. He is not able to give any additional history. He appears in no acute distress. No new labs today. Chest x-ray from March 05 shows persistent left-sided consolidation and small pleural effusion. There is some right basilar atelectasis as well. Progress note dated 03/08/2022. Currently, the patient's doing about the same. His repeat chest x-ray is about the same. Apparently the family still deciding whether or not we will transfer him to , for PEG tube insertion. The PEG tube was attempted here, but could not be done. The patient remains on Zosyn in the form of antibiotic. White count 16.4, hemoglobin 11, hematocrit 35.7, and platelet count normal. Sodium 137, potassium 5.1, chlorides 104, CO2 26, with a BUN of 6 and a creatinine of 0.40. Blood cultures thus far are negative. Chest x-ray as mentioned above, is unchanged. Progress note dated 03/09/2022. The patient is seen and examined. He remains in room 365. His family was in the room today we entered the room. Labs, x-rays, medications are all reviewed. Apparently, the surgeon here, we'll try to operatively place the feeding tube. It may be chronically assisted. His chest x-ray in my opinion shows a worsening infiltrate in the left lung. The patient remains on Zosyn. Blood cultures are thus far negative. White count 30.4, hemoglobin 9.5, hematocrit 30.9, and platelet count 276,000. Sodium 139, potassium 4.4, chlorides 108, CO2 26, BUN 8, creatinine 0.41. Pro-calcitonin level is 1.4. Objective - Vital Signs Vital signs: Vital Signs Temp 98.3 F 03/09/22 08:00 Pulse 116 H 03/09/22 13:22 Resp 18 03/09/22 12:00 BP 115/66 03/09/22 12:00 Pulse Ox 95 03/09/22 12:00 FiO2 50 03/06/22 12:00 Intake & Output 03/08/22 03/09/22 03/09/22 18:59 06:59 18:59 Intake Total 0 Output Total 425 900 Balance -425 -900 Weight 49 kg Intake: Oral 0 Output: Urine 425 900 Other: Voiding Method Diaper Diaper Diaper External Catheter External Catheter External Catheter - Exam No acute distress, unresponsive. The patient is currently on 3 L nasal cannula, with saturations of 95 %. HEENT examination is grossly unremarkable. Neck supple. Full range of motion. No adenopathy thyromegaly or neck vein di stention. Cardiovascular examination reveals regular rhythm rate. S1-S2 normal. No S3 or S4. No discernible murmur noted. Heart sounds are distant. Heart rate 103 bpm. Lungs reveal mostly clear breath sounds. Coarse rhonchi noted particularly in the left. Scattered crackles on the right. No wheezes. Breath sounds are diminished throughout. Abdomen soft bowel sounds are heard. No masses or tenderness. Extremities are intact. No cyanosis clubbing or edema. Skin is without rash or lesion. Neurologic examination is difficult to evaluate given his developmental delay. - Labs CBC & Chem 7: 03/09/22 08:18 03/09/22 08:18 Labs: Abnormal Lab Results - Last 24 Hours (Table) 03/09/22 03/09/22 03/09/22 Range/Units 08:18 08:18 08:18 WBC 30.4 H (3.8-10.6) k/uL RBC 3.43 L (4.30-5.90) m/uL Hgb 9.5 L D (13.0-17.5) gm/dL Hct 30.9 L (39.0-53.0) % MCHC 30.6 L (31.0-37.0) g/dL RDW 19.4 H (11.5-15.5) % Neutrophils # 24.1 H (1.3-7.7) k/uL Monocytes # 4.1 H (0-1.0) k/uL Chloride 108 H (98-107) mmol/L BUN 8 L (9-20) mg/dL Creatinine 0.41 L (0.66-1.25) mg/dL AST 60 H (17-59) U/L C-Reactive Protein (<1.0) mg/dL Total Protein 5.9 L (6.3-8.2) g/dL Albumin 2.4 L (3.5-5.0) g/dL Procalcitonin 1.40 H (0.02-0.09) ng/mL 03/09/22 Range/Units 11:56 WBC (3.8-10.6) k/uL RBC (4.30-5.90) m/uL Hgb (13.0-17.5) gm/dL Hct (39.0-53.0) % MCHC (31.0-37.0) g/dL RDW (11.5-15.5) % Neutrophils # (1.3-7.7) k/uL Monocytes # (0-1.0) k/uL Chloride (98-107) mmol/L BUN (9-20) mg/dL Creatinine (0.66-1.25) mg/dL AST (17-59) U/L C-Reactive Protein 40.5 H (<1.0) mg/dL Total Protein (6.3-8.2) g/dL Albumin (3.5-5.0) g/dL Procalcitonin (0.02-0.09) ng/mL Microbiology - Last 24 Hours (Table) 03/04/22 14:16 Blood Culture - Preliminary Blood No Growth after 96 hours 03/04/22 14:32 Blood Culture - Preliminary Blood No Growth after 96 hours Assessment and Plan Assessment: Acute hypoxemic respiratory failure, secondary to aspiration pneumonia, clinically and radiographically worse. Recurrent aspiration, with failed initial attempt of insertion of a PEG tube. Recent hospitalization for pneumonia and hypoxemic respiratory failure. History of seizure disorder. History of developmental delay. Patient is nonverbal. Previous history of meningitis with brain injury, as an infant. Plan: Plan dated 03/04/2022. The patient's mother does agree for PEG tube placement. The patient is a DO NOT RESUSCITATE patient. The patient remains on Zosyn. The patient should be on aspiration precautions, with head of bed elevated at all times. We will continue to follow. Prognosis is guarded. The patient remains on substantial amounts of oxygen therapy. We will continue to follow make recommendations where appropriate. Plan dated 03/05/2022. The patient will have a PEG tube placed, in the near future. We discussed this with the patient's mother, and the surgeon. Labs, x-rays, and medications all reviewed. Overall prognosis remains guarded. The patient should be an aspiration precautions. We will continue to follow make recommendations where appropriate. The patient is a DO NOT RESUSCITATE patient. I believe that to be appropriate. Plan dated 03/06/2022. Patient appears to be doing relatively well. Patient is currently nothing by mouth for possible PEG tube placement. The patient remains on antibiotics. Blood cultures have been negative. The patient cannot give us a sputum sample. The patient remains on Zosyn. The patient is a DO NOT RESUSCITATE patient. We will continue to follow and make recommendations where appropriate. Prognosis is certainly guarded. Plan dated 03/08/2022. The patient continues on antibiotic. Chest x-rays essentially unchanged. The family is still trying to decide whether or not to transfer the patient. The PEG tube was attempted here, but could not be done. Labs, x-rays, and medications are reviewed. In my opinion, the x-ray is unchanged. Blood cultures are thus far negative. The patient is a DO NOT RESUSCITATE patient. We will continue to follow make recommendations where appropriate. Plan dated 03/09/2022. Currently, the patient is stable. The patient's white count is increased, and the patient's a bit more febrile. Addition, the chest x-ray my opinion looks worse. The patient is to have a robotically-assisted insertion of a PEG tube. It might be better to delay it until we have better control of the patient's infection. We'll continue to follow make recommendations where appropriate. The patient is a DO NOT RESUSCITATE patient. Time with Patient: Less than 30
[2022-03-09] MEDS: IBUPROFEN 400 MG TAB PO PRN (17:15)
--- NOTE | 2022-03-09 18:07 | P.CNOR ---
History of Present Illness - [facility] Consult date: 03/09/22 Consult reason: fracture (Subacute right humerus fracture.) History of present illness: This is a 36-year-old male with history of multiple medical problems including seizure disorder, viral meningitis at age 7 weeks, visual impairment and recurrent aspiration pneumonia. He is currently in with respiratory failure. There is an incidental finding of a subacute fracture of the mid to proximal humerus on chest x-ray. We're consulted for orthopedic evaluation. 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 History of Any Multi-Drug Resistant Organisms: None Reported Past Surgical History: No Surgical Hx Reported Additional Past Anesthesia/Blood Transfusion Reaction / Comm: Pt has never had surgery. Past Psychological History: No Psychological Hx Reported Smoking Status: Never smoker Past Alcohol Use History: None Reported Past Drug Use History: None Reported - Past Family History Mother Family Medical History: No Reported History Father Additional Family Medical History / Comment(s): Father has some joint problems and has had bilateral hip and knee replacements.spondolytis Medications and Allergies Home Medications Medication Instructions Recorded Confirmed Type Divalproex Sprinkle [Depakote 750 mg PO BID@0600,1630 12/23/16 02/27/22 History Sprinkle] LORazepam [Ativan] 1.5 mg PO TID@0600,1000,1630 12/23/16 02/27/22 History Topiramate [Topamax] 30 mg PO BID@0600,1630 12/23/16 02/27/22 History Acetaminophen Tab [Tylenol] 1,000 mg PO Q6H PRN 11/18/21 02/27/22 History Ibuprofen [Motrin Ib] 200 mg PO Q6H PRN 11/18/21 02/27/22 History Magnesium Hydroxide [Milk of 2,400 mg PO DAILY PRN 11/18/21 02/27/22 History Magnesia] diphenhydrAMINE ELIXIR [Benadryl 25 mg PO Q6H PRN 11/18/21 02/27/22 History Elixir] diphenhydrAMINE [Benadryl] 25 mg PO DIRECTED PRN 11/18/21 02/27/22 History guaiFENesin-DM 100-10MG/5ML 10 ml PO Q4H PRN 11/18/21 02/27/22 History [Robitussin DM] risperiDONE [RisperDAL] 0.25 mg PO DAILY@0600 11/18/21 02/27/22 History Cholecalciferol [Vitamin D3 (25 25 mcg PO DAILY@0600 02/27/22 02/27/22 History Mcg = 1000 Iu)] Ferrous Sulfate [Feosol] 325 mg PO DAILY@1630 02/27/22 02/27/22 History Allergies Allergy/AdvReac Type Severity Reaction Status Date / Time No Known Allergies Allergy Verified 02/27/22 08:52 Physical Examination This is a 36-year-old gentleman who is nonverbal and sedated. He is resting comfortably. There appear to be contractures to both upper extremities. I'm able to gently move the right shoulder and upper arm with a slight pain response. Radial pulses are +1/4 bilaterally. There are no open wounds or abrasions. Capillary refill to the fingers is less than 3 seconds. Results X-rays of the right humerus reveal a mid to proximal humeral shaft fracture which appears to be subacute. Findings are suspicious for a pathologic fracture. A chest x-ray from 2019 was reviewed and there is an expansile cortical irregularity noted to this area of the humerus. - Labs Labs: Abnormal Lab Results - Last 24 Hours (Table) 03/09/22 03/09/22 03/09/22 Range/Units 08:18 08:18 08:18 WBC 30.4 H (3.8-10.6) k/uL RBC 3.43 L (4.30-5.90) m/uL Hgb 9.5 L D (13.0-17.5) gm/dL Hct 30.9 L (39.0-53.0) % MCHC 30.6 L (31.0-37.0) g/dL RDW 19.4 H (11.5-15.5) % Neutrophils # 24.1 H (1.3-7.7) k/uL Monocytes # 4.1 H (0-1.0) k/uL Chloride 108 H (98-107) mmol/L BUN 8 L (9-20) mg/dL Creatinine 0.41 L (0.66-1.25) mg/dL AST 60 H (17-59) U/L C-Reactive Protein (<1.0) mg/dL Total Protein 5.9 L (6.3-8.2) g/dL Albumin 2.4 L (3.5-5.0) g/dL Procalcitonin 1.40 H (0.02-0.09) ng/mL 03/09/22 Range/Units 11:56 WBC (3.8-10.6) k/uL RBC (4.30-5.90) m/uL Hgb (13.0-17.5) gm/dL Hct (39.0-53.0) % MCHC (31.0-37.0) g/dL RDW (11.5-15.5) % Neutrophils # (1.3-7.7) k/uL Monocytes # (0-1.0) k/uL Chloride (98-107) mmol/L BUN (9-20) mg/dL Creatinine (0.66-1.25) mg/dL AST (17-59) U/L C-Reactive Protein 40.5 H (<1.0) mg/dL Total Protein (6.3-8.2) g/dL Albumin (3.5-5.0) g/dL Procalcitonin (0.02-0.09) ng/mL Microbiology - Last 24 Hours (Table) 03/04/22 14:16 Blood Culture - Preliminary Blood No Growth after 120 hours 03/04/22 14:32 Blood Culture - Preliminary Blood No Growth after 120 hours H & H 02/27/22 02/28/22 03/01/22 Range/Units 08:31 08:58 08:40 Hgb 11.2 L 10.3 L 10.6 L (13.0-17.5) gm/dL Hct 34.9 L 32.8 L 35.7 L (39.0-53.0) % 03/02/22 03/03/22 03/04/22 Range/Units 08:21 08:07 10:06 Hgb 9.8 L 10.3 L 10.2 L (13.0-17.5) gm/dL Hct 31.6 L 34.7 L 33.4 L (39.0-53.0) % 03/05/22 03/08/22 03/09/22 Range/Units 09:08 09:30 08:18 Hgb 10.6 L 11.0 L 9.5 L D (13.0-17.5) gm/dL Hct 34.4 L 35.7 L 30.9 L (39.0-53.0) % Coagulation 02/27/22 Range/Units 08:31 INR 1.0 (<1.2) Result Diagrams: 03/09/22 08:18 03/09/22 08:18 Assessment and Plan (1) Fracture of humerus, right, closed Current Visit: Yes Status: Acute Code(s): S42.301A - UNSP FRACTURE OF SHAFT OF HUMERUS, RIGHT ARM, INIT SNOMED Code(s): 26603668 Plan: The clinical and x-ray findings are discussed with nursing staff. It is recommended that he have MRI for further evaluation of the humerus. No lifting or pulling the right arm for transfers. We will continue to follow.
[2022-03-09] MEDS: LACTATED RINGERS 1,000 ML IV SCH (21:39)
[2022-03-10] MEDS: PIPERACILLIN-TAZOBACTAM 3.375 GM in SODIUM CHLORIDE 0.9% 100 ML IVPB SCH ×4 (00:19→23:32)
[2022-03-10] MEDS: LORazepam 0.5 MG TAB PO SCH ×3 (06:11→21:14)
[2022-03-10] MEDS: DIVALPROEX SPRINKLE 125 MG CAP.SPRINK PO SCH ×2 (06:12→21:13)
[2022-03-10] MEDS: TOPIRAMATE 15 MG PO SCH ×2 (07:11→19:56)
[2022-03-10] MEDS: risperiDONE 0.25 MG TAB PO SCH (07:49)
[2022-03-10] MEDS: SODIUM CHLORIDE 0.9% 1,000 ML IV SCH ×3 (07:50→20:44)
--- NOTE | 2022-03-10 07:55 | P.PN ---
Subjective Progress Note Date: 03/09/22 Principal diagnosis: Recurrent aspiration pneumonia Patient is a 36 year old male with mental and developmental delay admitted to the hospital with increasing shortness of breath and concerning for extensive left-sided pneumonia likely aspiration etiology. Patient did have EGD and attempted to place a PEG tube placement which was not successful on 03/06/2022 On today's evaluation that is 03/09/2022, patient did spike a fever of 102F yesterday afternoon however afebrile this morning, the patient is breathing comfortably on nasal cannula oxygen, no vomiting or diarrhea reported by the nursing staff Objective - Vital Signs Vital signs: Vital Signs Temp 98.3 F 03/09/22 08:00 Pulse 116 H 03/09/22 13:22 Resp 18 03/09/22 12:00 BP 115/66 03/09/22 12:00 Pulse Ox 95 03/09/22 12:00 FiO2 50 03/06/22 12:00 Intake & Output 03/08/22 03/09/22 03/09/22 18:59 06:59 18:59 Intake Total 0 Output Total 425 900 Balance -425 -900 Weight 49 kg Intake: Oral 0 Output: Urine 425 900 Other: Voiding Method Diaper Diaper Diaper External Catheter External Catheter External Catheter - Exam GENERAL DESCRIPTION: Middle-aged male lying in bed in no distress RESPIRATORY SYSTEM: Unlabored breathing , coarse Bilaterally HEART: S1 S2 regular rate and rhythm , ABDOMEN: Soft , no tenderness EXTREMITIES: No edema feet - Labs CBC & Chem 7: 03/09/22 08:18 03/09/22 08:18 Labs: Abnormal Lab Results - Last 24 Hours (Table) 03/09/22 03/09/22 03/09/22 Range/Units 08:18 08:18 08:18 WBC 30.4 H (3.8-10.6) k/uL RBC 3.43 L (4.30-5.90) m/uL Hgb 9.5 L D (13.0-17.5) gm/dL Hct 30.9 L (39.0-53.0) % MCHC 30.6 L (31.0-37.0) g/dL RDW 19.4 H (11.5-15.5) % Neutrophils # 24.1 H (1.3-7.7) k/uL Monocytes # 4.1 H (0-1.0) k/uL Chloride 108 H (98-107) mmol/L BUN 8 L (9-20) mg/dL Creatinine 0.41 L (0.66-1.25) mg/dL AST 60 H (17-59) U/L Total Protein 5.9 L (6.3-8.2) g/dL Albumin 2.4 L (3.5-5.0) g/dL Procalcitonin 1.40 H (0.02-0.09) ng/mL Microbiology - Last 24 Hours (Table) 03/04/22 14:16 Blood Culture - Preliminary Blood No Growth after 96 hours 03/04/22 14:32 Blood Culture - Preliminary Blood No Growth after 96 hours Assessment and Plan (1) Pneumonia Current Visit: Yes Status: Acute Code(s): J18.9 - PNEUMONIA, UNSPECIFIED ORGANISM SNOMED Code(s): 749361614 Plan: 1patient presented to hospital with increasing shortness of breath with evidence of extensive pneumonia on the left lung likely secondary to aspiration in this patient with underlying mental impairment. 2patient did have attempted PEG tube placement via EGD which was not successful now plan for possible open versus laparoscopic feeding tube placement , 3- blood culture negative sputum could not be collected 3 patient did have a new fever and worsening of the white count more likely secondary to recurrent aspiration the patient should be strictly nothing by mouth and continue with the Zosyn mother at the bedside questions were answered Time with Patient: Less than 30
[2022-03-10] MEDS: IPRATROPIUM-ALBUTEROL 3 ML NEB INHALATION SCH ×4 (08:33→20:15)
--- NOTE | 2022-03-10 08:44 | XR ---
EXAMINATION TYPE: XR chest 1V portable DATE OF EXAM: 03/10/2022 Comparison: 03/08/2022, 03/09/2022 Clinical History: 36-year-old male aspiration pneumonia Findings: Limited comer leftward rotated exam. Extensive airspace disease at the left base persists. Interstiti al changes within the remainder of the left lung shows some improvement from 03/09/2022. Right lung remains clear. Dextroconvex scoliosis lumbar spine. Impression: Continued extensive airspace disease at the left base. Some interstitial changes within the remainder of the left lung show improvement from 03/09/2022.
[2022-03-10 09:41] LABS: Anisocytosis Slight; Basophils % (A) 0 %; Eosinophils % (A) 0 %; HCT 29.3 % (39.0-53.0); HGB 8.9 gm/dL (13.0-17.5); Hypochromasia Marked; Lymphocytes # (A) 1.6 k/uL (1.0-4.8); Lymphocytes % (A) 8 %; MCH 27.9 pg (25.0-35.0); MCHC 30.2 g/dL (31.0-37.0); MCV 92.1 fL (80.0-100.0); Mean Platelet Volume 7.6; Monocytes # (A) 1.6 k/uL (0-1.0); Monocytes % (A) 9 %; Neutrophils # (A) 15.2 k/uL (1.3-7.7); Neutrophils % (A) 81 %; Platelet Count 306 k/uL (150-450); RBC 3.18 m/uL (4.30-5.90); RDW 19.9 % (11.5-15.5); WBC 18.8 k/uL (3.8-10.6)
[2022-03-10] MEDS: LACTATED RINGERS 1,000 ML IV SCH (10:22)
[2022-03-10] MEDS: ENOXAPARIN 30 MG/0.3 ML SYRINGE SQ SCH ×2 (10:22→10:26)
[2022-03-10 10:27] LABS: ALT 14 U/L (4-49); AST 54 U/L (17-59); African American GFR (CKD) >90 (>60 ml/min/1.73 sqM); Albumin 2.4 g/dL (3.5-5.0); Alkaline Phosphatase 136 U/L (38-126); Anion Gap 10 mmol/L; Blood Urea Nitrogen 10 mg/dL (9-20); Calcium 8.5 mg/dL (8.4-10.2); Carbon Dioxide 24 mmol/L (22-30); Chloride 109 mmol/L (98-107); Glucose 66 mg/dL (74-99); Non-African American GFR(CKD) >90 (>60 ml/min/1.73 sqM); Potassium 3.2 mmol/L (3.5-5.1); Sodium 143 mmol/L (137-145); Total Bilirubin <0.1 mg/dL (0.2-1.3); Total Protein 5.9 g/dL (6.3-8.2)
--- NOTE | 2022-03-10 11:37 | P.PN ---
Subjective Progress Note Date: 03/10/22 36-year-old patient was coming into the hospital because of a extensive left andrei ng pneumonia. The patient was noted to be more short of breath at [facility] home and hypoxic and for that reason he was brought into the hospital. He has had previous history of aspiration pneumonia as the patient has significant developmental delay and he has been aspirating food according to the family. 2021, the patient is on room air oxygen and the pulse ox is around 94%. In comparison to his original chest x-ray at time of admission, the left lung consolidation is improved considerably. The patient is currently being prepared for a PEG tube insertion. Technically this will be difficult and the patient will have be taken to the operating room for robotic-assisted PEG tube insertion by Dr. Aldo Onofre. He is currently nothing by mouth. All of the blood cultures of been negative and the patient currently remains on IV Zosyn. The white cell count of 18.8 with a hemoglobin of 8.9 Objective - Vital Signs Vital signs: Vital Signs Temp 98.5 F 03/10/22 11:19 Pulse 98 03/10/22 11:19 Resp 16 03/10/22 11:19 BP 95/61 03/10/22 11:19 Pulse Ox 94 L 03/10/22 11:19 FiO2 50 03/06/22 12:00 Intake & Output 03/09/22 03/10/22 03/10/22 18:59 06:59 18:59 Output Total 200 300 Balance -200 -300 Weight 50 kg Output: Urine 200 Post Void Residual 300 Other: Voiding Method Diaper Diaper Diaper External Catheter External Catheter External Catheter - Exam GENERAL EXAM: 36-year-old white male, with developmental delay, , comfortable on room air oxygen HEAD: Normocephalic/atraumatic. EYES: Normal reaction of pupils, equal size. Conjunctiva pink, sclera white. NOSE: Clear with pink turbinates. THROAT: No erythema or exudates. NECK: No masses, no JVD, no thyroid enlargement, no adenopathy. CHEST: No chest wall deformity. Symmetrical expansion. LUNGS: Equal air entry with no crackles, wheeze, rhonchi or dullness. Diminished breath on the left compared to the right along with some bronchial breath sounds and crackles in the left lung base. CVS: Regular rate and rhythm, normal S1 and S2, no gallops, no murmurs, no rubs ABDOMEN: Soft, nontender. No hepatosplenomegaly, normal bowel sounds, no guarding or rigidity. EXTREMITIES: No clubbing, no edema, no cyanosis, 2+ pulses and upper and lower extremities. MUSCULOSKELETAL: Muscle strength and tone normal. SPINE: No scoliosis or deformity SKIN: No rashes CENTRAL NERVOUS SYSTEM: Poorly responsive, tachypneic, and respiratory distress. No focal deficits, tone is normal in all 4 extremities. - Labs CBC & Chem 7: 03/10/22 08:25 03/10/22 08:25 Labs: Abnormal Lab Results - Last 24 Hours (Table) 03/09/22 03/09/22 03/10/22 Range/Units 08:18 11:56 08:25 WBC 18.8 H (3.8-10.6) k/uL RBC 3.18 L (4.30-5.90) m/uL Hgb 8.9 L (13.0-17.5) gm/dL Hct 29.3 L (39.0-53.0) % MCHC 30.2 L (31.0-37.0) g/dL RDW 19.9 H (11.5-15.5) % Neutrophils # 15.2 H (1.3-7.7) k/uL Monocytes # 1.6 H (0-1.0) k/uL Potassium (3.5-5.1) mmol/L Chloride (98-107) mmol/L Creatinine (0.66-1.25) mg/dL Glucose (74-99) mg/dL Total Bilirubin (0.2-1.3) mg/dL Alkaline Phosphatase (38-126) U/L C-Reactive Protein 40.5 H (<1.0) mg/dL Total Protein (6.3-8.2) g/dL Albumin (3.5-5.0) g/dL Procalcitonin 1.40 H (0.02-0.09) ng/mL 03/10/22 Range/Units 08:25 WBC (3.8-10.6) k/uL RBC (4.30-5.90) m/uL Hgb (13.0-17.5) gm/dL Hct (39.0-53.0) % MCHC (31.0-37.0) g/dL RDW (11.5-15.5) % Neutrophils # (1.3-7.7) k/uL Monocytes # (0-1.0) k/uL Potassium 3.2 L (3.5-5.1) mmol/L Chloride 109 H (98-107) mmol/L Creatinine 0.45 L (0.66-1.25) mg/dL Glucose 66 L (74-99) mg/dL Total Bilirubin <0.1 L (0.2-1.3) mg/dL Alkaline Phosphatase 136 H (38-126) U/L C-Reactive Protein (<1.0) mg/dL Total Protein 5.9 L (6.3-8.2) g/dL Albumin 2.4 L (3.5-5.0) g/dL Procalcitonin (0.02-0.09) ng/mL Microbiology - Last 24 Hours (Table) 03/04/22 14:16 Blood Culture - Preliminary Blood No Growth after 120 hours 03/04/22 14:32 Blood Culture - Preliminary Blood No Growth after 120 hours Assessment and Plan Plan: . Acute hypoxic respiratory failure related to acute pneumonia, possibly related to acute aspiration. COVID-19 PCR was negative. There is a recurrent event and the patient was Hospital as for left lung pneumonia back in November 2021 and he was treated and he was discharged home without any major difficulties. The patient was readmitted for the same with a significant consolidation of the left lung which has partially improved and the patient is currently on room air oxygen. The ultimate plan is to proceed with a PEG tube insertion for recurrent aspiration. Nevertheless, this is a technically difficult and the patient will have it done in the operating room under robotic assistance. This will be done by general surgery. . Aspiration, recurrent . Recent hospitalization for pneumonia and hypoxic respiratory failure . Seizure disorder . History of developmental delay . Patient is nonverbal at baseline . History of meningitis with brain injury at 7 weeks of age Plan Chest x-ray from today showing improvement in left lung consolidation, the patient is currently on room air oxygen The patient will be taken to the operating room to have the PEG tube done under general anesthesia. He care is obviously an increased risk of having postoperative pulmonary complications because of his chronic respiratory insufficiency. Nevertheless, this understandable as the patient's condition has been maximally optimized at this point in time and his pneumonia is improved and the patient is currently on room air oxygen. DNR/DNI CODE STATUS Keep Zosyn Blood work was noted, everything is stable Seizure precautions Aspiration precautions Keep the patient nothing by mouth for now His prognosis is quite poor PEG tube is in progress
[2022-03-10] MEDS ORDERED: POTASSIUM BICARBONATE/CIT AC 20 MEQ TABLET.EFF PO ONE (13:00)
--- NOTE | 2022-03-10 14:43 | P.PN ---
Subjective Progress Note Date: 03/10/22 This is a 36-year-old male with history of multiple medical problems including seizure disorder, viral meningitis at age 7 weeks, visual impairment and recurrent aspiration pneumonia. He is currently in with respiratory failure. There is an incidental finding of a subacute fracture of the mid to proximal humerus on chest x-ray. We're consulted for orthopedic evaluation. 03/10/22: Patient is examined bedside. He is awaitng PEG tube insertion by Dr. Onofre for recurrent aspiration. Orthopedics is following in regards to a subacute right humerus fracture. MRI is ordered, this has not been performed y et. Objective - Vital Signs Vital signs: Vital Signs Temp 98.5 F 03/10/22 11:19 Pulse 100 03/10/22 12:11 Resp 16 03/10/22 11:19 BP 95/61 03/10/22 11:19 Pulse Ox 94 L 03/10/22 11:19 FiO2 50 03/06/22 12:00 Intake & Output 03/09/22 03/10/22 03/10/22 18:59 06:59 18:59 Output Total 200 300 275 Balance -200 -300 -275 Weight 50 kg 50 kg Output: Urine 200 275 Post Void Residual 300 Other: Voiding Method Diaper Diaper Diaper External Catheter External Catheter External Catheter - Exam on examination, the patient is sitting up in bed. He is in no acute distress. He is nonverbal and sedated. He appears comfortable. On inspection of the bilateral upper extremities, there appears to be contractures. On inspection of the right upper extremity, there are no areas of ecchymosis, erythema, lacerations, abrasions. There appears to be no significant pain response on palpation of the right upper arm. Range of motion of the right shoulder is not tested at this time. The radial pulses easily palpable. Right upper extremity is warm and well perfused. - Labs CBC & Chem 7: 03/10/22 08:25 03/10/22 08:25 Labs: Abnormal Lab Results - Last 24 Hours (Table) 03/10/22 03/10/22 Range/Units 08:25 08:25 WBC 18.8 H (3.8-10.6) k/uL RBC 3.18 L (4.30-5.90) m/uL Hgb 8.9 L (13.0-17.5) gm/dL Hct 29.3 L (39.0-53.0) % MCHC 30.2 L (31.0-37.0) g/dL RDW 19.9 H (11.5-15.5) % Neutrophils # 15.2 H (1.3-7.7) k/uL Monocytes # 1.6 H (0-1.0) k/uL Potassium 3.2 L (3.5-5.1) mmol/L Chloride 109 H (98-107) mmol/L Creatinine 0.45 L (0.66-1.25) mg/dL Glucose 66 L (74-99) mg/dL Total Bilirubin <0.1 L (0.2-1.3) mg/dL Alkaline Phosphatase 136 H (38-126) U/L Total Protein 5.9 L (6.3-8.2) g/dL Albumin 2.4 L (3.5-5.0) g/dL Microbiology - Last 24 Hours (Table) 03/09/22 11:56 Blood Culture - Preliminary Blood No Growth after 24 hours 03/04/22 14:16 Blood Culture - Preliminary Blood No Growth after 120 hours 03/04/22 14:32 Blood Culture - Preliminary Blood No Growth after 120 hours Assessment and Plan Assessment: Right humerus fracture, subacute Plan: - We will await MRI findings for further recommendations. No pulling or lifting right upper extremity for transfers. - We will continue to follow.
[2022-03-10] MEDS ORDERED: IV FLUID CONTINUATION 1,000 ML IV ONE (16:16)
--- NOTE | 2022-03-10 16:17 | P.PN ---
Progress Note - Text Progress Note Date: 03/10/22 Patient brought down to preop for planned laparoscopic da Bertha assisted gastrostomy tube placement. Patient's parents are both present at this time. Discussed holding his DO NOT RESUSCITATE status during the procedure. DO NOT RESUSCITATE will be reinitiated postoperatively at the time of our choosing after the surgery is complete. Risks of the procedure were noted to include but not limited to bleeding, infection, leak, abscess, bowel injury, conversion to an open procedure, respiratory and cardiac complications. They understand and wish to proceed.
[2022-03-10] MEDS ORDERED: LACTATED RINGERS 1,000 ML IV ONE (16:51)
[2022-03-10] MEDS ORDERED: fentaNYL (PF) 50 MCG/ML 2 ML AMP ONE (17:00)
[2022-03-10] MEDS ORDERED: ROCURONIUM 10 MG/ML (5 ML VIAL) IV ONE (17:00)
[2022-03-10] MEDS ORDERED: SUGAMMADEX SODIUM 200 MG/2 ML SDV IV ONE (17:00)
[2022-03-10] MEDS ORDERED: NALOXONE 0.4 MG/ML 1 ML VIAL ONE (17:00)
[2022-03-10] MEDS ORDERED: LIDOCAINE 2% INJ 20 MG/ML (2 ML VIAL) ONE (17:00)
[2022-03-10] MEDS ORDERED: METOPROLOL TARTRATE 5 MG/5 ML VIAL IVP ONE (17:00)
[2022-03-10] MEDS ORDERED: GLYCOPYRROLATE 0.2 MG/ML 2 ML VIAL ONE (17:00)
[2022-03-10] MEDS ORDERED: HYDROmorphone (PF) 1 MG/ML ONE (17:00)
[2022-03-10] MEDS ORDERED: PHENYLEPHRINE-0.9% NACL SYG 1,000 MCG/10 ML SYRINGE ONE (17:00)
[2022-03-10] MEDS ORDERED: PROPOFOL 10 MG/ML 20 ML VIAL IV ONE (17:00)
[2022-03-10] MEDS ORDERED: MIDAZOLAM 2 MG/2 ML VIAL ONE (17:00)
[2022-03-10] MEDS ORDERED: NEOSTIGMINE 1 MG/ML 10 ML VIAL ONE (17:00)
--- NOTE | 2022-03-10 17:08 | P.PN ---
Subjective Progress Note Date: 03/10/22 Tolu Sánchez, is a 36-year-old male who presented to [facility] emergency room due to increased somnolence and shortness of breath. He was evaluated in the emergency room vital examination on presentation revealed a temperature of 97.3 pulse 101 respiration 22 blood pressure 115/68 pulse ox 98% on room air Laboratory data revealed a white blood count of 5.2 hemoglobin 11.2 platelet co unt 205 sodium 139 potassium 3.2 chloride 100 CO2 26 BUN 20 creatinine 0.48 Testing in the emergency room revealed chest x-ray done in the emergency room revealed large infiltrate and/or opacification with air bronchogram within the left lung, EKG done in the emergency room revealed sinus tachycardia with right ventricular hypertrophy. Patient was admitted to medical floor for further evaluation and treatment, he was started on IV antibiotics, pulmonary consultation was requested. On 02/28/2022 patient is resting in bed currently maintained on partial nonrebreather. Current vitals temp 97.6, pulse rate 72, respiratory rate 18 blood pressure 97/64 patient stating 98% on partial rebreather at 15 L. Patient remains on IV vancomycin. Infectious disease services have been consulted. Currently blood cell count 6.6. On 03/01/2022 patient remains on partial nonrebreather. Infectious disease and pulmonary services are following this session was held with family per infectious PEG tube placement. Vitals temp 97.4, heart rate 78, respiratory rate 16, blood pressure 100/60 patient satting 98% on partial rebreather 15 L On 03/02/2022 patient was seen and examined on the medical floor he is alert nonverbal in no apparent distress, nurse denies any events or any new complaints, patient is maintained on partial nonrebreather mask on 12 L his vital exam reveals a temperature of 97.4 pulse 67 respiration 18 blood pressure 124/68 pulse ox 96% laboratory data reveals a white blood count of 5.7 hemoglobin 9.8 platelet count 139 BUN is 8 creatinine 0.42 he remains on IV antibiotic Zosyn, pulmonary and infectious disease are following, repeat chest x-ray is ordered for tomorrow On 03/03/2022 patient was seen and examined on the medical floor he is alert, nonverbal in no apparent distress vital examination reveals a temperature of 98 pulse 73 respiration 16 blood pressure 108/70 pulse ox 93% on Ventimask with FiO2 of 50% laboratory data reveals a white blood count of 5.1 hemoglobin 10.3 platelet count 147 BUN 6 creatinine 0.38 On 03/04/2022 patient is resting comfortably in bed. Patient remains on Ventimask. Current vital signs temp 9070, pulse rate 87, respiratory rate 20, blood pressure 140/76. Patient remains on IV Zosyn pulmonary and infectious disease services are following On 03/05/2022 patient was seen and examined on the medical floor he is alert nonverbal in no apparent distress he is still maintained on high flow oxygen no new episodes of fever, temperature is 90.7 pulse 100 respiration 20 blood pressure 159/78 pulse ox 97% on Ventimask white blood count is 8.4 hemoglobin 10.6 platelet count 186 chest x-ray reveals bilateral infiltrates On 03/06/2022 patient was seen and examined on the medical floor he is alert nonverbal in no apparent distress, he is still maintained on oxygen via Ventimask, chest x-ray with minimal improvement, patient is scheduled today for PEG tube placement, will follow closely. 03/07/2022 patient is resting comfortably in bed. Patient is now on 2 L nasal cannula satting 96%. Per surgical services attempt was made for PEG tube placement but was unable to place peg tube due to anatomy. Per surgical services will further discussed with parents in regards to next options for PEG tube placement. Patient remains on IV Zosyn and ID pulmonary and surgical services are following. On 03/08/2022 patient was seen and examined on the medical floor he is alert nonverbal in no apparent distress, temperature is elevated today at 102 pulse 109 respiration 18 blood pressure 128/75 pulse ox 95% on 3 L nasal cannula, i te blood count up to 16.4 from 8.4 yesterday hemoglobin 11 platelet count 313, at this time will add IV Tylenol, increase IV fluid to 125 mL/h, PEG tube was attempted and failed here, family is deciding whether they want patient transferred to [facility] for possible PEG tube placement On 03/09/2022 patient is alert but nonverbal resting in bed. remains on IV Zosyn. Patient having elevated temperature and white count discussed with nursing staff to make infectious disease aware for any potential change in antibiotic. Current vital signs temp 99.4, heart rate 105, blood pressure 101 /55 with a pulse ox of 99% on 2 L. Awaiting family decision in regards to possible transfer for PEG tube placement. On 03/10/2022 patient was seen and examined on the medical floor he is alert nonverbal in no apparent distress father is at the bedside and case was discussed in details with him. At this time family do not want patient to be transferred to any other Hospital. They want to proceed here with surgery for PEG tube for feeding. They understand that patient is a very high risk, and they prefer to continue with care here. Objective - Vital Signs Vital signs: Vital Signs Temp 98.5 F 03/10/22 11:19 Pulse 100 03/10/22 12:11 Resp 16 03/10/22 11:19 BP 95/61 03/10/22 11:19 Pulse Ox 94 L 03/10/22 11:19 FiO2 50 03/06/22 12:00 Intake & Output 03/09/22 03/10/22 03/10/22 18:59 06:59 18:59 Output Total 200 300 275 Balance -200 -300 -275 Weight 50 kg 50 kg Output: Urine 200 275 Post Void Residual 300 Other: Voiding Method Diaper Diaper Diaper External Catheter External Catheter External Catheter - Exam In general patient is somnolent responsive only to repeated stimuli HEENT head normocephalic and atraumatic Neck is supple no JVD no goiter no lymphadenopathy no carotid bruit Chest examination reveals a crackles in both lung galicia no wheezing Cardiac exam reveals regular heart sounds S1 and S2 no gallops no murmurs Abdomen is soft nontender no organomegaly with normal bowel sounds Extremity exam reveals no edema no cyanosis or clubbing Neurological examination reveals no gross focal deficits - Labs CBC & Chem 7: 03/10/22 08:25 03/10/22 08:25 Labs: Abnormal Lab Results - Last 24 Hours (Table) 03/09/22 03/09/22 03/10/22 Range/Units 08:18 11:56 08:25 WBC 18.8 H (3.8-10.6) k/uL RBC 3.18 L (4.30-5.90) m/uL Hgb 8.9 L (13.0-17.5) gm/dL Hct 29.3 L (39.0-53.0) % MCHC 30.2 L (31.0-37.0) g/dL RDW 19.9 H (11.5-15.5) % Neutrophils # 15.2 H (1.3-7.7) k/uL Monocytes # 1.6 H (0-1.0) k/uL Potassium (3.5-5.1) mmol/L Chloride (98-107) mmol/L Creatinine (0.66-1.25) mg/dL Glucose (74-99) mg/dL Total Bilirubin (0.2-1.3) mg/dL Alkaline Phosphatase (38-126) U/L C-Reactive Protein 40.5 H (<1.0) mg/dL Total Protein (6.3-8.2) g/dL Albumin (3.5-5.0) g/dL Procalcitonin 1.40 H (0.02-0.09) ng/mL 03/10/22 Range/Units 08:25 WBC (3.8-10.6) k/uL RBC (4.30-5.90) m/uL Hgb (13.0-17.5) gm/dL Hct (39.0-53.0) % MCHC (31.0-37.0) g/dL RDW (11.5-15.5) % Neutrophils # (1.3-7.7) k/uL Monocytes # (0-1.0) k/uL Potassium 3.2 L (3.5-5.1) mmol/L Chloride 109 H (98-107) mmol/L Creatinine 0.45 L (0.66-1.25) mg/dL Glucose 66 L (74-99) mg/dL Total Bilirubin <0.1 L (0.2-1.3) mg/dL Alkaline Phosphatase 136 H (38-126) U/L C-Reactive Protein (<1.0) mg/dL Total Protein 5.9 L (6.3-8.2) g/dL Albumin 2.4 L (3.5-5.0) g/dL Procalcitonin (0.02-0.09) ng/mL Microbiology - Last 24 Hours (Table) 03/04/22 14:16 Blood Culture - Preliminary Blood No Growth after 120 hours 03/04/22 14:32 Blood Culture - Preliminary Blood No Growth after 120 hours Assessment and Plan Plan: Acute pneumonia possibly related to aspiration pneumonia Acute hypoxic respiratory failure Previous episodes of aspiration pneumonia including recently in November 2021 Underlying history of developmental delay with severe physical and mental debility patient requires 24-hour care Underlying history of seizure disorder 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
[2022-03-10] MEDS ORDERED: BUPIVACAINE (PF) 0.25% 30 ML VIAL SQ ONE ×2 (17:22→17:55)
--- NOTE | 2022-03-10 19:11 | P.OP ---
Date of Procedure: 03/10/22 Procedure(s) Performed: PREOPERATIVE DIAGNOSIS: Malnutrition, aspiration pneumonia POSTOPERATIVE DIAGNOSIS: Same PROCEDURE: Laparoscopic da Bertha assisted placement jejunostomy feeding tube SURGEON: [place] EBL: 5 mL ANESTHESIA: Gen. COMPLICATIONS: None OPERATIVE PROCEDURE: Patient placed under general anesthesia supine on the operating table. The patient has contractures so he was semi- towards the left with his arms over his chest. The abdomen was able to be exposed fairly nicely despite the contractures. The abdomen was prepped and draped sterilely. A 5 mm optical trocar was used to gain entrance into the abdomen. Full insufflation took place to 15 mm. At that time we switched to a robotic approach. 2 8 mm trochars were placed along the same plane diagonally in the right mid abdomen. The initial 5 was switched to an 8. The patient was placed in reverse Trendelenburg position 10. The robot was then brought onto the field and docked appropriately. The 30 angle scope was utilized. Initially we were using a downward viewing angle. The patient's abdomen was inspected. The patient's stomach was quite high in the upper abdominal cavity and was actually quite difficult to even visualize behind the left lobe of the liver. This was not going to reach the abdominal wall in the infracostal location. I broke scrub at that point and discussed the findings with the family. We decided at that point to switch to a jejunostomy feeding tube. The ligament of Treitz was identified. The proximal jejunum was followed and a site was chosen. A 3-0 GI silk pursestring suture was used on the antimesenteric portion of the proximal to mid jejunum. The patient's mesentery was fairly short and the proximal jejunum would not reach the abdominal wall even after dropping the pressure to 8 mmHg. The 18-[place] balloon J-tube was advanced into the abdominal cavity through a stab incision in the left upper quadrant. A small enterotomy was made in the center of the pursestring suture. The catheter was cut so that we had a shorter length of tubing to advance into the bowel lumen. Once we had the enterotomy made the tube was advanced distally into the small bowel. The balloon was inflated to 3, 4, and 5 mL. The 4 mL fill seemed to be providing enough girth to hold the intestine up to the abdominal wall nicely while not obstructing the lumen of the small bowel. 3-0 GI silk was tied down at that point. Additional stay sutures were placed around the exit site between the abdominal wall and the jejunum. These were also 3-0 GI silks. An additional 3- 0 GI silk was used to anchor the distal aspect of the tube to the abdominal wall to prevent twisting at the site. This was approximately 2-3 cm distal to the entrance site. The trochars were then removed. Insufflation was evacuated. The 3 skin incisions were closed using interrupted 4-0 Monocryl sutures. The bolster seems somewhat loose on this tube and I did use a 3-0 silk stitch to suture the bolster to the feeding tube so that it would not slide in any further. A drain sponge was placed. A sterile dressing was applied over the tube site. Skin glue was used on our 3 incision sites. Operative findings were discussed with the family. DISPOSITION: Stable to recovery room
[2022-03-10] MEDS ORDERED: POTASSIUM CHLORIDE 20 MEQ in WATER FOR INJECTION 1 100ML.BAG IVPB STA (19:22)
[2022-03-10] MEDS ORDERED: ALBUTEROL NEBULIZED 2.5 MG/3 ML INHALATION ONE (19:26)
[2022-03-11] MEDS: ACETAMINOPHEN IV (For NPO) 750 MG in EMPTY BAG 1 BAG IVPB PRN (04:11)
[2022-03-11] MEDS: IPRATROPIUM-ALBUTEROL 3 ML NEB INHALATION SCH ×4 (08:33→20:26)
[2022-03-11] MEDS: ENOXAPARIN 30 MG/0.3 ML SYRINGE SQ SCH (09:08)
[2022-03-11] MEDS: PIPERACILLIN-TAZOBACTAM 3.375 GM in SODIUM CHLORIDE 0.9% 100 ML IVPB SCH ×3 (09:08→23:44)
[2022-03-11] MEDS: SODIUM CHLORIDE 0.9% 1,000 ML IV SCH ×2 (09:10→18:50)
--- NOTE | 2022-03-11 10:54 | P.PN ---
Subjective Progress Note Date: 03/11/22 This is a 36-year-old male with history of multiple medical problems including seizure disorder, viral meningitis at age 7 weeks, visual impairment and recurrent aspiration pneumonia. He is currently in with respiratory failure. There is an incidental finding of a subacute fracture of the mid to proximal humerus on chest x-ray. We're consulted for orthopedic evaluation. 03/10/22: Patient is examined bedside. Patient underwent PEG tube insertion yesterday with Dr. Onofre for recurrent aspiration. Orthopedics is following in regards to a subacute right humerus fracture. MRI is ordered, this has still not been performed. Per nursing, patient is scheduled for 1:45 pm this afternoon for his MRI. Objective - Vital Signs Vital signs: Vital Signs Temp 97.6 F 03/11/22 08:00 Pulse 88 03/11/22 08:46 Resp 20 03/11/22 08:00 BP 101/64 03/11/22 08:00 Pulse Ox 97 03/11/22 03:58 FiO2 50 03/06/22 12:00 Intake & Output 03/10/22 03/11/22 03/11/22 18:59 06:59 18:59 Intake Total 1800 100 Output Total 280 500 Balance 1520 -400 Weight 50 kg Intake: IV 1800 100 Output: Urine 275 500 Estimated Blood Loss 5 Other: Voiding Method Diaper External Catheter External Catheter External Catheter - Exam on examination, the patient is sitting up in bed. He is in no acute distress. He is nonverbal and sedated. He appears comfortable. On inspection of the bilateral upper extremities, there appears to be contractures. On inspection of the right upper extremity, there are no areas of ecchymosis, erythema, lacerations, abrasions. There appears to be no significant pain response on palpation of the right upper arm. Range of motion of the right shoulder is not tested at this time. The radial pulses easily palpable. Right upper extremity is warm and well perfused. - Labs CBC & Chem 7: 03/10/22 08:25 03/10/22 08:25 Labs: Microbiology - Last 24 Hours (Table) 03/04/22 14:16 Blood Culture - Final Blood No Growth after 144 hours 03/04/22 14:32 Blood Culture - Final Blood No Growth after 144 hours 03/09/22 11:56 Blood Culture - Preliminary Blood No Growth after 24 hours Assessment and Plan Assessment: Right humerus fracture, subacute Plan: - We will await MRI findings for further recommendations. No pulling or lifting right upper extremity for transfers. - We will continue to follow.
--- NOTE | 2022-03-11 11:18 | P.PN ---
Subjective Progress Note Date: 03/11/22 36-year-old patient was coming into the hospital because of a extensive left andrei ng pneumonia. The patient was noted to be more short of breath at [facility] home and hypoxic and for that reason he was brought into the hospital. He has had previous history of aspiration pneumonia as the patient has significant developmental delay and he has been aspirating food according to the family. 2021, the patient is on room air oxygen and the pulse ox is around 94%. In comparison to his original chest x-ray at time of admission, the left lung consolidation is improved considerably. The patient is currently being prepared for a PEG tube insertion. Technically this will be difficult and the patient will have be taken to the operating room for robotic-assisted PEG tube insertion by Dr. Aldo Onofre. He is currently nothing by mouth. All of the blood cultures of been negative and the patient currently remains on IV Zosyn. The white cell count of 18.8 with a hemoglobin of 8.9. 03/11/2022, the patient is post PEG tube insertion. The procedure well and without any major complication and the patient is currently on oxygen at 2 L per minute nasal cannula. His, and comfortable. The family has noted some discomfort in his left shoulder and based on that the patient is going to have a MRI of the left shoulder today to rule out any fractures. The patient did have a spike of low-grade temperature of 100.8 and currently is afebrile. His resting comfortably in bed. PEG tube has not been utilized yet. The most recent chest x-ray from yesterday showed improvement in aeration and the consolidation of the left lung. There is some residual airspace disease in the left lung base. Family is at the bedside. Objective - Vital Signs Vital signs: Vital Signs Temp 97.6 F 03/11/22 08:00 Pulse 88 03/11/22 08:46 Resp 20 03/11/22 08:00 BP 101/64 03/11/22 08:00 Pulse Ox 97 03/11/22 03:58 FiO2 50 03/06/22 12:00 Intake & Output 03/10/22 03/11/22 03/11/22 18:59 06:59 18:59 Intake Total 1800 100 Output Total 280 500 Balance 1520 -400 Weight 50 kg Intake: IV 1800 100 Output: Urine 275 500 Estimated Blood Loss 5 Other: Voiding Method Diaper External Catheter External Catheter External Catheter - Exam GENERAL EXAM: 36-year-old white male, with developmental delay, , comfortable on 2 L of oxygen by nasal cannula. HEAD: Normocephalic/atraumatic. EYES: Normal reaction of pupils, equal size. Conjunctiva pink, sclera white. NOSE: Clear with pink turbinates. THROAT: No erythema or exudates. NECK: No masses, no JVD, no thyroid enlargement, no adenopathy. CHEST: No chest wall deformity. Symmetrical expansion. LUNGS: Equal air entry with no crackles, wheeze, rhonchi or dullness. Diminished breath on the left compared to the right along with some bronchial breath sounds and crackles in the left lung base. CVS: Regular rate and rhythm, normal S1 and S2, no gallops, no murmurs, no rubs ABDOMEN: Soft, nontender. No hepatosplenomegaly, normal bowel sounds, no guarding or rigidity. The patient has a PEG tube in place. The PEG tube has not been utilized. Abdomen is soft. EXTREMITIES: No clubbing, no edema, no cyanosis, 2+ pulses and upper and lower extremities. MUSCULOSKELETAL: Muscle strength and tone normal. SPINE: No scoliosis or deformity SKIN: No rashes CENTRAL NERVOUS SYSTEM: Poorly responsive, tachypneic, and respiratory distress. No focal deficits, tone is normal in all 4 extremities. - Labs CBC & Chem 7: 03/10/22 08:25 03/10/22 08:25 Labs: Microbiology - Last 24 Hours (Table) 03/04/22 14:16 Blood Culture - Final Blood No Growth after 144 hours 03/04/22 14:32 Blood Culture - Final Blood No Growth after 144 hours 03/09/22 11:56 Blood Culture - Preliminary Blood No Growth after 24 hours Assessment and Plan Plan: . Acute hypoxic respiratory failure related to acute pneumonia, possibly related to acute aspiration. COVID-19 PCR was negative. There is a recurrent event and the patient was Hospital as for left lung pneumonia back in November 2021 and he was treated and he was discharged home without any major difficulties. The patient was readmitted for the same with a significant consolidation of the left lung which has partially improved and the patient is currently on nasal cannula. The patient is post PEG tube insertion. . Aspiration, recurrent . Recent hospitalization for pneumonia and hypoxic respiratory failure . Seizure disorder . History of developmental delay . Patient is nonverbal at baseline . History of meningitis with brain injury at 7 weeks of age Plan Chest x-ray from today showing improvement in left lung consolidation, the patient is currently on 2 liters Repeat chest x-ray tomorrow Initiate enteral feeding tomorrow DNR/DNI CODE STATUS Keep Zosyn Change IV fluids to 50 mL an hour Aspiration precautions Blood work was noted, everything is stable Seizure precautions Aspiration precautions Keep the patient nothing by mouth for now His prognosis is quite poor
[2022-03-11] MEDS: DIVALPROEX SPRINKLE 125 MG CAP.SPRINK PO SCH ×2 (11:58→16:49)
[2022-03-11] MEDS: LORazepam 0.5 MG TAB PO SCH ×3 (11:58→16:49)
[2022-03-11] MEDS: TOPIRAMATE 15 MG PO SCH ×2 (11:58→16:49)
[2022-03-11] MEDS ORDERED: IBUPROFEN ORAL SUSP 100 MG/5 ML CUP PO PRN (12:38)
[2022-03-11] MEDS ORDERED: ACETAMINOPHEN ORAL SUSP (PEDS) 3,840 MG/120 ML BOTTLE PO PRN (12:39)
[2022-03-11] MEDS: ACETAMINOPHEN IV (For NPO) 1,000 MG in EMPTY BAG 1 BAG IVPB PRN (12:41)
--- NOTE | 2022-03-11 12:48 | P.PN ---
Subjective Progress Note Date: 03/11/22 CHIEF COMPLAINT: Recurrent aspiration pneumonia HISTORY OF PRESENT ILLNESS: Patient is status post POD#1 laparoscopic da shelby assisted placement of jejunostomy feeding tube. Patient is lying in bed. Pat ient to have a low-grade temp of 100.8 last night that has now resolved. His tachycardia also resolved. WBC 18.8 yesterday PHYSICAL EXAM: VITAL SIGNS: Reviewed. GENERAL: Well-developed in no acute distress. HEENT: No sclera icterus. Extraocular movements grossly intact. Moist buccal mucosa. Head is atraumatic, normocephalic. ABDOMEN: Soft. Nondistended. Mild discomfort with palpation. dressing clean, dry and intact. ASSESSMENT: 1. Recurrent aspiration pneumonia 2. Moderate protein calorie malnutrition 3. History of cerebral palsy PLAN: -Further recommendations forthcoming per surgeon regarding initiation of tube feeds and medications through J-tube -At this time nothing is to placed through the J-tube -Continue supportive care -IV Tylenol added for pain Physician Payroll And Benefits Manager note has been reviewed by physician. Signing provider agrees with the documented findings, assessment, and plan of care. I have personally seen and examined the patient, reviewed the GOLD FRAME ASSEMBLER /PAs history, exam and MDM and agree with the assessment and plan as written. Based on total visit time, I have performed more than 50% of the visit. As above: Per the father the patient is somewhat uncomfortable today. Low- grade fever last night. White blood cell count improved. Incisions are clean and dry, minimal tenderness, tube is in place. Apparently MRI ordered for humerus fracture. We'll initiate tube feeds starting tomorrow morning. Discussed J-tube placement with dietary. Appropriate formula being advised. Medications should be on a liquid form or granular form. No crushed medications advised. Objective - Vital Signs Vital signs: Vital Signs Temp 97.7 F 03/11/22 11:44 Pulse 84 03/11/22 12:02 Resp 20 03/11/22 11:44 BP 114/68 03/11/22 11:44 Pulse Ox 97 03/11/22 11:44 FiO2 50 03/06/22 12:00 Intake & Output 03/10/22 03/11/22 03/11/22 18:59 06:59 18:59 Intake Total 1800 100 Output Total 280 500 550 Balance 1520 -400 -550 Weight 50 kg Intake: IV 1800 100 Output: Urine 275 500 550 Estimated Blood Loss 5 Other: Voiding Method Diaper External Catheter External Catheter External Catheter - Labs CBC & Chem 7: 03/10/22 08:25 03/10/22 08:25 Labs: Microbiology - Last 24 Hours (Table) 03/04/22 14:16 Blood Culture - Final Blood No Growth after 144 hours 03/04/22 14:32 Blood Culture - Final Blood No Growth after 144 hours 03/09/22 11:56 Blood Culture - Preliminary Blood No Growth after 24 hours
[2022-03-11] MEDS ORDERED: POTASSIUM CHLORIDE 20 MEQ in WATER FOR INJECTION 1 100ML.BAG IVPB STA (13:37)
[2022-03-11 16:34] LABS: African American GFR (CKD) >90 (>60 ml/min/1.73 sqM); Anion Gap 9 mmol/L; Blood Urea Nitrogen 4 mg/dL (9-20); Calcium 8.1 mg/dL (8.4-10.2); Carbon Dioxide 23 mmol/L (22-30); Chloride 104 mmol/L (98-107); Glucose 74 mg/dL (74-99); Non-African American GFR(CKD) >90 (>60 ml/min/1.73 sqM); Sodium 136 mmol/L (137-145)
--- NOTE | 2022-03-11 17:26 | P.PN ---
Subjective Progress Note Date: 03/11/22 Tolu Sánchez, is a 36-year-old male who presented to [facility] emergency room due to increased somnolence and shortness of breath. He was evaluated in the emergency room vital examination on presentation revealed a temperature of 97.3 pulse 101 respiration 22 blood pressure 115/68 pulse ox 98% on room air Laboratory data revealed a white blood count of 5.2 hemoglobin 11.2 platelet co unt 205 sodium 139 potassium 3.2 chloride 100 CO2 26 BUN 20 creatinine 0.48 Testing in the emergency room revealed chest x-ray done in the emergency room revealed large infiltrate and/or opacification with air bronchogram within the left lung, EKG done in the emergency room revealed sinus tachycardia with right ventricular hypertrophy. Patient was admitted to medical floor for further evaluation and treatment, he was started on IV antibiotics, pulmonary consultation was requested. On 02/28/2022 patient is resting in bed currently maintained on partial nonrebreather. Current vitals temp 97.6, pulse rate 72, respiratory rate 18 blood pressure 97/64 patient stating 98% on partial rebreather at 15 L. Patient remains on IV vancomycin. Infectious disease services have been consulted. Currently blood cell count 6.6. On 03/01/2022 patient remains on partial nonrebreather. Infectious disease and pulmonary services are following this session was held with family per infectious PEG tube placement. Vitals temp 97.4, heart rate 78, respiratory rate 16, blood pressure 100/60 patient satting 98% on partial rebreather 15 L On 03/02/2022 patient was seen and examined on the medical floor he is alert nonverbal in no apparent distress, nurse denies any events or any new complaints, patient is maintained on partial nonrebreather mask on 12 L his vital exam reveals a temperature of 97.4 pulse 67 respiration 18 blood pressure 124/68 pulse ox 96% laboratory data reveals a white blood count of 5.7 hemoglobin 9.8 platelet count 139 BUN is 8 creatinine 0.42 he remains on IV antibiotic Zosyn, pulmonary and infectious disease are following, repeat chest x-ray is ordered for tomorrow On 03/03/2022 patient was seen and examined on the medical floor he is alert, nonverbal in no apparent distress vital examination reveals a temperature of 98 pulse 73 respiration 16 blood pressure 108/70 pulse ox 93% on Ventimask with FiO2 of 50% laboratory data reveals a white blood count of 5.1 hemoglobin 10.3 platelet count 147 BUN 6 creatinine 0.38 On 03/04/2022 patient is resting comfortably in bed. Patient remains on Ventimask. Current vital signs temp 9070, pulse rate 87, respiratory rate 20, blood pressure 140/76. Patient remains on IV Zosyn pulmonary and infectious disease services are following On 03/05/2022 patient was seen and examined on the medical floor he is alert nonverbal in no apparent distress he is still maintained on high flow oxygen no new episodes of fever, temperature is 90.7 pulse 100 respiration 20 blood pressure 159/78 pulse ox 97% on Ventimask white blood count is 8.4 hemoglobin 10.6 platelet count 186 chest x-ray reveals bilateral infiltrates On 03/06/2022 patient was seen and examined on the medical floor he is alert nonverbal in no apparent distress, he is still maintained on oxygen via Ventimask, chest x-ray with minimal improvement, patient is scheduled today for PEG tube placement, will follow closely. 03/07/2022 patient is resting comfortably in bed. Patient is now on 2 L nasal cannula satting 96%. Per surgical services attempt was made for PEG tube placement but was unable to place peg tube due to anatomy. Per surgical services will further discussed with parents in regards to next options for PEG tube placement. Patient remains on IV Zosyn and ID pulmonary and surgical services are following. On 03/08/2022 patient was seen and examined on the medical floor he is alert nonverbal in no apparent distress, temperature is elevated today at 102 pulse 109 respiration 18 blood pressure 128/75 pulse ox 95% on 3 L nasal cannula, i te blood count up to 16.4 from 8.4 yesterday hemoglobin 11 platelet count 313, at this time will add IV Tylenol, increase IV fluid to 125 mL/h, PEG tube was attempted and failed here, family is deciding whether they want patient transferred to [facility] for possible PEG tube placement On 03/09/2022 patient is alert but nonverbal resting in bed. remains on IV Zosyn. Patient having elevated temperature and white count discussed with nursing staff to make infectious disease aware for any potential change in antibiotic. Current vital signs temp 99.4, heart rate 105, blood pressure 101 /55 with a pulse ox of 99% on 2 L. Awaiting family decision in regards to possible transfer for PEG tube placement. On 03/10/2022 patient was seen and examined on the medical floor he is alert nonverbal in no apparent distress father is at the bedside and case was discussed in details with him. At this time family do not want patient to be transferred to any other Hospital. They want to proceed here with surgery for PEG tube for feeding. They understand that patient is a very high risk, and they prefer to continue with care here. On 03/11/2022 patient was seen and examined on the medical floor he is alert nonverbal in no apparent distress, vital exam reveals a temperature of 98 pulse 88 respiration 20 blood pressure 108/72 pulse ox 97% on 2 L Nasal cannula Patient underwent laparoscopic placement of jejunostomy feeding tube yesterday. Objective - Vital Signs Vital signs: Vital Signs Temp 97.6 F 03/11/22 08:00 Pulse 88 03/11/22 08:46 Resp 20 03/11/22 08:00 BP 101/64 03/11/22 08:00 Pulse Ox 97 03/11/22 03:58 FiO2 50 03/06/22 12:00 Intake & Output 03/10/22 03/11/22 03/11/22 18:59 06:59 18:59 Intake Total 1800 100 Output Total 280 500 Balance 1520 -400 Weight 50 kg Intake: IV 1800 100 Output: Urine 275 500 Estimated Blood Loss 5 Other: Voiding Method Diaper External Catheter External Catheter - Exam In general patient is somnolent responsive only to repeated stimuli HEENT head normocephalic and atraumatic Neck is supple no JVD no goiter no lymphadenopathy no carotid bruit Chest examination reveals a crackles in both lung galicia no wheezing Cardiac exam reveals regular heart sounds S1 and S2 no gallops no murmurs Abdomen is soft nontender no organomegaly with normal bowel sounds Extremity exam reveals no edema no cyanosis or clubbing Neurological examination reveals no gross focal deficits - Labs CBC & Chem 7: 03/10/22 08:25 03/11/22 15:52 Labs: Abnormal Lab Results - Last 24 Hours (Table) 03/10/22 Range/Units 08:25 Potassium 3.2 L (3.5-5.1) mmol/L Chloride 109 H (98-107) mmol/L Creatinine 0.45 L (0.66-1.25) mg/dL Glucose 66 L (74-99) mg/dL Total Bilirubin <0.1 L (0.2-1.3) mg/dL Alkaline Phosphatase 136 H (38-126) U/L Total Protein 5.9 L (6.3-8.2) g/dL Albumin 2.4 L (3.5-5.0) g/dL Microbiology - Last 24 Hours (Table) 03/04/22 14:16 Blood Culture - Final Blood No Growth after 144 hours 03/04/22 14:32 Blood Culture - Final Blood No Growth after 144 hours 03/09/22 11:56 Blood Culture - Preliminary Blood No Growth after 24 hours Assessment and Plan Plan: Acute pneumonia possibly related to aspiration pneumonia Acute hypoxic respiratory failure Previous episodes of aspiration pneumonia including recently in November 2021 Underlying history of developmental delay with severe physical and mental debility patient requires 24-hour care Underlying history of seizure disorder 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
[2022-03-11] MEDS: LACTATED RINGERS 1,000 ML IV SCH (21:20)
[2022-03-11] MEDS: risperiDONE 0.25 MG TAB PO SCH (21:21)
[2022-03-12] MEDS: ACETAMINOPHEN IV (For NPO) 1,000 MG in EMPTY BAG 1 BAG IVPB PRN (00:59)
--- NOTE | 2022-03-12 04:54 | MR ---
EXAMINATION TYPE: MR humerus RT w/wo con DATE OF EXAM: 03/11/2022 COMPARISON: None HISTORY: R/O pathologic fracture CONTRAST: Standard multiplanar, multisequence MRI departmental protocol images were obtained without contrast a nd with 5 mL intravenous Gadavist gadolinium contrast. There is on the T1 images abnormal decreased signal in the proximal shaft of the humerus extending up to the humeral neck that measures more than 6 cm in length. There is fracture of the lateral cortex. The sagittal and coronal images show oblique fracture line through the proximal shaft of the humerus . There is some periosteal new bone formation and callus formation along the lateral aspect of the pr oximal shaft of the humerus. There is long segment of enhancement of the medullary cavity of the danuta donovan on both sides of the fracture. Total length is 13 cm. There is no evidence of any soft tissue mass beyond the callus formation. IMPRESSION: Oblique slightly displaced healing fracture of the proximal humerus. There is callus formation. I do not see any invasion of the adjacent soft tissue. There is callus formation on the lateral aspect of the fracture. I do not see convincing evidence for an underlying tumor.
--- NOTE | 2022-03-12 07:13 | P.PN ---
Subjective Progress Note Date: 03/10/22 Principal diagnosis: Recurrent aspiration pneumonia Patient is a 36 year old male with mental and developmental delay admitted to the hospital with increasing shortness of breath and concerning for extensive left-sided pneumonia likely aspiration etiology. Patient did have EGD and attempted to place a PEG tube placement which was not successful on 03/06/2022, patient scheduled for laparoscopic PEG tube placement on 03/10/2022 On today's evaluation that is 03/10/2022, patient is afebrile today, and is breathing comfortably on room air, no vomiting diarrhea or any other changes reported by the nursing staff Objective - Vital Signs Vital signs: Vital Signs Temp 98.5 F 03/10/22 11:19 Pulse 100 03/10/22 12:11 Resp 16 03/10/22 11:19 BP 95/61 03/10/22 11:19 Pulse Ox 94 L 03/10/22 11:19 FiO2 50 03/06/22 12:00 Intake & Output 03/09/22 03/10/22 03/10/22 18:59 06:59 18:59 Output Total 200 300 275 Balance -200 -300 -275 Weight 50 kg 50 kg Output: Urine 200 275 Post Void Residual 300 Other: Voiding Method Diaper Diaper Diaper External Catheter External Catheter External Catheter - Exam GENERAL DESCRIPTION: Middle-aged male lying in bed in no distress RESPIRATORY SYSTEM: Unlabored breathing , coarse Bilaterally HEART: S1 S2 regular rate and rhythm , ABDOMEN: Soft , no tenderness EXTREMITIES: No edema feet - Labs CBC & Chem 7: 03/10/22 08:25 03/11/22 15:52 Labs: Abnormal Lab Results - Last 24 Hours (Table) 03/09/22 03/09/22 03/10/22 Range/Units 08:18 11:56 08:25 WBC 18.8 H (3.8-10.6) k/uL RBC 3.18 L (4.30-5.90) m/uL Hgb 8.9 L (13.0-17.5) gm/dL Hct 29.3 L (39.0-53.0) % MCHC 30.2 L (31.0-37.0) g/dL RDW 19.9 H (11.5-15.5) % Neutrophils # 15.2 H (1.3-7.7) k/uL Monocytes # 1.6 H (0-1.0) k/uL Potassium (3.5-5.1) mmol/L Chloride (98-107) mmol/L Creatinine (0.66-1.25) mg/dL Glucose (74-99) mg/dL Total Bilirubin (0.2-1.3) mg/dL Alkaline Phosphatase (38-126) U/L C-Reactive Protein 40.5 H (<1.0) mg/dL Total Protein (6.3-8.2) g/dL Albumin (3.5-5.0) g/dL Procalcitonin 1.40 H (0.02-0.09) ng/mL 03/10/22 Range/Units 08:25 WBC (3.8-10.6) k/uL RBC (4.30-5.90) m/uL Hgb (13.0-17.5) gm/dL Hct (39.0-53.0) % MCHC (31.0-37.0) g/dL RDW (11.5-15.5) % Neutrophils # (1.3-7.7) k/uL Monocytes # (0-1.0) k/uL Potassium 3.2 L (3.5-5.1) mmol/L Chloride 109 H (98-107) mmol/L Creatinine 0.45 L (0.66-1.25) mg/dL Glucose 66 L (74-99) mg/dL Total Bilirubin <0.1 L (0.2-1.3) mg/dL Alkaline Phosphatase 136 H (38-126) U/L C-Reactive Protein (<1.0) mg/dL Total Protein 5.9 L (6.3-8.2) g/dL Albumin 2.4 L (3.5-5.0) g/dL Procalcitonin (0.02-0.09) ng/mL Microbiology - Last 24 Hours (Table) 03/04/22 14:16 Blood Culture - Preliminary Blood No Growth after 120 hours 03/04/22 14:32 Blood Culture - Preliminary Blood No Growth after 120 hours Assessment and Plan (1) Pneumonia Current Visit: Yes Status: Acute Code(s): J18.9 - PNEUMONIA, UNSPECIFIED ORG ANISM SNOMED Code(s): 794771957 Plan: 1patient presented to hospital with increasing shortness of breath with evidence of extensive pneumonia on the left lung likely secondary to aspiration in this patient with underlying mental impairment. 2patient did have attempted PEG tube placement via EGD which was not successful now plan for possible open versus laparoscopic feeding tube placement , 3- blood culture negative sputum could not be collected 3 patient fever has resolved and white count is down to 18,000 to continue with the Zosyn and strict nothing by mouth status Time with Patient: Less than 30
--- NOTE | 2022-03-12 07:14 | P.PN ---
Subjective Progress Note Date: 03/11/22 Principal diagnosis: Recurrent aspiration pneumonia Patient is a 36 year old male with mental and developmental delay admitted to the hospital with increasing shortness of breath and concerning for extensive left-sided pneumonia likely aspiration etiology. Patient did have EGD and attempted to place a PEG tube placement which was not successful on 03/06/2022, patient is status post laparoscopic PEG tube placement on 03/10/2022 On today's evaluation that is 03/11/2022, patient remains to be afebrile and is breathing comfortably on 2 L nasal cannula, no vomiting diarrhea or any other changes reported by the nursing staff Objective - Vital Signs Vital signs: Vital Signs Temp 97.7 F 03/11/22 11:44 Pulse 84 03/11/22 12:02 Resp 20 03/11/22 11:44 BP 114/68 03/11/22 11:44 Pulse Ox 97 03/11/22 11:44 FiO2 50 03/06/22 12:00 Intake & Output 03/10/22 03/11/22 03/11/22 18:59 06:59 18:59 Intake Total 1800 100 Output Total 280 500 550 Balance 1520 -400 -550 Weight 50 kg Intake: IV 1800 100 Output: Urine 275 500 550 Estimated Blood Loss 5 Other: Voiding Method Diaper External Catheter External Catheter External Catheter - Exam GENERAL DESCRIPTION: Middle-aged male lying in bed in no distress RESPIRATORY SYSTEM: Unlabored breathing , coarse Bilaterally HEART: S1 S2 regular rate and rhythm , ABDOMEN: Soft , no tenderness EXTREMITIES: No edema feet - Labs CBC & Chem 7: 03/10/22 08:25 03/11/22 15:52 Labs: Microbiology - Last 24 Hours (Table) 03/04/22 14:16 Blood Culture - Final Blood No Growth after 144 hours 03/04/22 14:32 Blood Culture - Final Blood No Growth after 144 hours 03/09/22 11:56 Blood Culture - Preliminary Blood No Growth after 24 hours Assessment and Plan (1) Pneumonia Current Visit: Yes Status: Acute Code(s): J18.9 - PNEUMONIA, UNSPECIFIED ORGANISM SNOMED Code(s): 576060299 Plan: 1patient presented to hospital with increasing shortness of breath with evidence of extensive pneumonia on the left lung likely secondary to aspiration in this patient with underlying mental impairment. 2patient did have attempted PEG tube placement via EGD which was not successful now plan for possible open versus laparoscopic feeding tube placement , 3- blood culture negative sputum could not be collected 3 patient remains to be afebrile and white count is trending down, patient continue with the Zosyn monitor his clinical course closely Time with Patient: Less than 30
--- NOTE | 2022-03-12 08:12 | P.PN ---
Subjective Progress Note Date: 03/12/22 Principal diagnosis: Right humerus fracture. .Multiple medical comorbidities. This is a 36-year-old male with history of multiple medical problems including seizure disorder, viral meningitis at age 7 weeks, visual impairment and recurrent aspiration pneumonia. He is currently in with respiratory failure. There is an incidental finding of a subacute fracture of the mid to proximal humerus on chest x-ray. We're consulted for orthopedic evaluation. 03/12/2022: MRI of the right humerus was performed which revealed a subacute proximal humerus fracture. There is no obvious evidence of lesion in the bone. Fracture is healing in satisfactory position. The patient is stable from an orthopedic standpoint. Patient is nonverbal. I am unable to assess his pain level. Signs are stable. Objective - Vital Signs Vital signs: Vital Signs Temp 98.3 F 03/12/22 03:47 Pulse 95 03/12/22 03:47 Resp 20 03/12/22 03:47 BP 109/84 03/12/22 03:47 Pulse Ox 97 03/12/22 03:47 FiO2 50 03/06/22 12:00 Intake & Output 03/11/22 03/12/22 03/12/22 18:59 06:59 18:59 Intake Total 760 Output Total 550 400 700 Balance 210 -400 -700 Weight 50 kg Intake: Intake, IV Titration 760 Amount ACETAMINOPHEN IV (For NPO 100 ) 1,000 mg In Empty Bag 1 bag @ 400 mls/hr IVPB Q6HR PRN Rx#:[id number] Lactated Ringers 1,000 ml 160 @ 0 mls/hr IV .[facility] Rx#:[id number] Piperacillin-Tazobactam 3 100 .375 gm In Sodium Chloride 0.9% 100 ml @ 25 mls/hr IVPB Q8HR [facility] Rx# :[id number] Sodium Chloride 0.9% 1, 400 000 ml @ 50 mls/hr IV . Q20H [facility] Rx#:[id number] Output: Urine 550 400 700 Other: Voiding Method External Catheter External Catheter - Exam This is a 36-year-old male in no obvious distress. Eyes are open today. He responds slightly to verbal and physical stimuli. There is minimal obvious pain response with gentle motion of the right arm. Radial pulse is +2/4. Capillary refill is less than 3 seconds. - Labs CBC & Chem 7: 03/10/22 08:25 03/11/22 15:52 Labs: Abnormal Lab Results - Last 24 Hours (Table) 03/11/22 Range/Units 15:52 Sodium 136 L (137-145) mmol/L Potassium 3.0 L (3.5-5.1) mmol/L BUN 4 L (9-20) mg/dL Creatinine 0.36 L (0.66-1.25) mg/dL Calcium 8.1 L (8.4-10.2) mg/dL Microbiology - Last 24 Hours (Table) 03/09/22 11:56 Blood Culture - Preliminary Blood No Growth after 48 hours Assessment and Plan (1) Fracture of humerus, right, closed Current Visit: Yes Status: Acute Code(s): S42.301A - UNSP FRACTURE OF SHAFT OF HUMERUS, RIGHT ARM, INIT SNOMED Code(s): 11764468 Plan: The clinical and MRI findings are discussed with nursing staff. There is no treatment needed for this subacute fracture. It is healing in satisfactory position. He may follow-up in our office as needed. Continue routine care.
[2022-03-12] MEDS: LORazepam 0.5 MG TAB PO SCH (08:16)
[2022-03-12] MEDS: PIPERACILLIN-TAZOBACTAM 3.375 GM in SODIUM CHLORIDE 0.9% 100 ML IVPB SCH ×3 (08:20→23:10)
[2022-03-12] MEDS: ENOXAPARIN 30 MG/0.3 ML SYRINGE SQ SCH (08:20)
[2022-03-12] MEDS: IPRATROPIUM-ALBUTEROL 3 ML NEB INHALATION SCH ×4 (08:32→19:14)
[2022-03-12] MEDS: LORazepam 2 MG/ML INJ IV SCH ×3 (09:03→23:09)
[2022-03-12 10:30] LABS: ALT 13 U/L (4-49); AST 40 U/L (17-59); African American GFR (CKD) >90 (>60 ml/min/1.73 sqM); Albumin 2.6 g/dL (3.5-5.0); Alkaline Phosphatase 147 U/L (38-126); Anion Gap 11 mmol/L; Blood Urea Nitrogen 2 mg/dL (9-20); Calcium 8.2 mg/dL (8.4-10.2); Carbon Dioxide 24 mmol/L (22-30); Chloride 103 mmol/L (98-107); Glucose 73 mg/dL (74-99); Non-African American GFR(CKD) >90 (>60 ml/min/1.73 sqM); Potassium 3.4 mmol/L (3.5-5.1); Sodium 138 mmol/L (137-145); Total Bilirubin 0.3 mg/dL (0.2-1.3); Total Protein 6.2 g/dL (6.3-8.2)
[2022-03-12 10:48] LABS: Anisocytosis Slight; Basophils % (A) 0 %; Eosinophils # (A) 0.1 k/uL (0-0.7); Eosinophils % (A) 1 %; HCT 30.6 % (39.0-53.0); HGB 9.2 gm/dL (13.0-17.5); Hypochromasia Marked; Lymphocytes # (A) 1.4 k/uL (1.0-4.8); Lymphocytes % (A) 20 %; MCH 28.2 pg (25.0-35.0); MCHC 30.2 g/dL (31.0-37.0); MCV 93.3 fL (80.0-100.0); Mean Platelet Volume 7.3; Monocytes # (A) 0.6 k/uL (0-1.0); Monocytes % (A) 8 %; Neutrophils # (A) 4.7 k/uL (1.3-7.7); Neutrophils % (A) 69 %; Platelet Count 351 k/uL (150-450); RBC 3.28 m/uL (4.30-5.90); RDW 19.5 % (11.5-15.5); WBC 6.8 k/uL (3.8-10.6)
--- NOTE | 2022-03-12 11:01 | P.PN ---
Subjective Progress Note Date: 03/12/22 36-year-old patient was coming into the hospital because of a extensive left andrei ng pneumonia. The patient was noted to be more short of breath at [facility] home and hypoxic and for that reason he was brought into the hospital. He has had previous history of aspiration pneumonia as the patient has significant developmental delay and he has been aspirating food according to the family. 2021, the patient is on room air oxygen and the pulse ox is around 94%. In comparison to his original chest x-ray at time of admission, the left lung consolidation is improved considerably. The patient is currently being prepared for a PEG tube insertion. Technically this will be difficult and the patient will have be taken to the operating room for robotic-assisted PEG tube insertion by Dr. Aldo Onofre. He is currently nothing by mouth. All of the blood cultures of been negative and the patient currently remains on IV Zosyn. The white cell count of 18.8 with a hemoglobin of 8.9. 03/11/2022, the patient is post J tube insertion. The procedure well and without any major complication and the patient is currently on oxygen at 2 L per minute nasal cannula. His, and comfortable. The family has noted some discomfort in his left shoulder and based on that the patient is going to have a MRI of the left shoulder today to rule out any fractures. The patient did have a spike of low-grade temperature of 100.8 and currently is afebrile. His resting comfortably in bed. J tube has not been utilized yet. The most recent chest x-ray from yesterday showed improvement in aeration and the consolidation of the left lung. There is some residual airspace disease in the left lung base. Family is at the bedside. On today's evaluation of 03/12/2022, the patient is resting comfortably in bed. The patient is not having any significant respiratory distress. The patient is on 2 L O2 nasal cannula. The patient underwent a J-tube insertion by general surgery. Technically, it was difficult to insert a PEG tube on this patient. He remains on IV Zosyn. The patient also had an issue with a fractured humerus. MRI of the humerus was done and it showed a slightly displaced healing fracture of the proximal humerus. There was callus formation. No evidence of any tumor in that area. On today's evaluation, the patient's white cell count is at 6.8 with a hemoglobin of 9.2, BUN is at 2 with a creatinine of 0.3 and a sodium level of 138. The patient is also on Lovenox for DVT prophylaxis. Outpatient medication ordered resume. Objective - Vital Signs Vital signs: Vital Signs Temp 97.4 F L 03/12/22 08:00 Pulse 85 03/12/22 08:44 Resp 20 03/12/22 08:00 BP 125/76 03/12/22 08:00 Pulse Ox 96 03/12/22 08:00 FiO2 50 03/06/22 12:00 Intake & Output 03/11/22 03/12/22 03/12/22 18:59 06:59 18:59 Intake Total 760 Output Total 550 400 700 Balance 210 -400 -700 Weight 50 kg Intake: Intake, IV Titration 760 Amount ACETAMINOPHEN IV (For NPO 100 ) 1,000 mg In Empty Bag 1 bag @ 400 mls/hr IVPB Q6HR PRN Rx#:[id number] Lactated Ringers 1,000 ml 160 @ 0 mls/hr IV .[facility] Rx#:[id number] Piperacillin-Tazobactam 3 100 .375 gm In Sodium Chloride 0.9% 100 ml @ 25 mls/hr IVPB Q8HR [facility] Rx# :[id number] Sodium Chloride 0.9% 1, 400 000 ml @ 50 mls/hr IV . Q20H [facility] Rx#:[id number] Output: Urine 550 400 700 Other: Voiding Method External Catheter External Catheter External Catheter - Exam GENERAL EXAM: 36-year-old white male, with developmental delay, , comfortable on 2 L of oxygen by nasal cannula. HEAD: Normocephalic/atraumatic. EYES: Normal reaction of pupils, equal size. Conjunctiva pink, sclera white. NOSE: Clear with pink turbinates. THROAT: No erythema or exudates. NECK: No masses, no JVD, no thyroid enlargement, no adenopathy. CHEST: No chest wall deformity. Symmetrical expansion. LUNGS: Equal air entry with no crackles, wheeze, rhonchi or dullness. Di minished breath on the left compared to the right along with some bronchial breath sounds and crackles in the left lung base. CVS: Regular rate and rhythm, normal S1 and S2, no gallops, no murmurs, no rubs ABDOMEN: Soft, nontender. No hepatosplenomegaly, normal bowel sounds, no guarding or rigidity. The patient has a PEG tube in place. The J tube has not been utilized. Abdomen is soft. EXTREMITIES: No clubbing, no edema, no cyanosis, 2+ pulses and upper and lower extremities. MUSCULOSKELETAL: Muscle strength and tone normal. SPINE: No scoliosis or deformity SKIN: No rashes CENTRAL NERVOUS SYSTEM: Poorly responsive, tachypneic, and respiratory distress. No focal deficits, tone is normal in all 4 extremities. - Labs CBC & Chem 7: 03/12/22 09:33 03/12/22 09:33 Labs: Abnormal Lab Results - Last 24 Hours (Table) 03/11/22 03/12/22 03/12/22 Range/Units 15:52 09:33 09:33 RBC 3.28 L (4.30-5.90) m/uL Hgb 9.2 L (13.0-17.5) gm/dL Hct 30.6 L (39.0-53.0) % MCHC 30.2 L (31.0-37.0) g/dL RDW 19.5 H (11.5-15.5) % Sodium 136 L (137-145) mmol/L Potassium 3.0 L 3.4 L (3.5-5.1) mmol/L BUN 4 L 2 L (9-20) mg/dL Creatinine 0.36 L 0.38 L (0.66-1.25) mg/dL Glucose 73 L (74-99) mg/dL Calcium 8.1 L 8.2 L (8.4-10.2) mg/dL Alkaline Phosphatase 147 H (38-126) U/L Total Protein 6.2 L (6.3-8.2) g/dL Albumin 2.6 L (3.5-5.0) g/dL Microbiology - Last 24 Hours (Table) 03/09/22 11:56 Blood Culture - Preliminary Blood No Growth after 48 hours Assessment and Plan Plan: . Acute hypoxic respiratory failure related to acute pneumonia, possibly relat ed to acute aspiration. COVID-19 PCR was negative. There is a recurrent event and the patient was Hospital as for left lung pneumonia back in November 2021 and he was treated and he was discharged home without any major difficulties. The patient was readmitted for the same with a significant consolidation of the left lung which has partially improved and the patient is currently on nasal cannula. The patient is post J tube insertion. The patient is currently on 2 L of oxygen by nasal cannula. The patient is complaining course of Zosyn. . Aspiration, recurrent . Recent hospitalization for pneumonia and hypoxic respiratory failure . Seizure disorder . History of developmental delay . Patient is nonverbal at baseline . History of meningitis with brain injury at 7 weeks of age Plan Oxygen at 2 liters per minute nasal cannula Awaiting chest x-ray from today Initiate enteral feeding tomorrow DNR/DNI CODE STATUS Keep Zosyn IV fluids to 50 mL an hour Aspiration precautions Blood work was noted, everything is stable Seizure precautions Aspiration precautions Keep the patient nothing by mouth for now His prognosis is quite poor
--- NOTE | 2022-03-12 11:53 | XR ---
EXAMINATION TYPE: XR chest 1V DATE OF EXAM: 03/12/2022 COMPARISON: 03/10/2022 HISTORY: Chest pain TECHNIQUE: Single frontal view of the chest is obtained. FINDINGS: Improved aeration left lower lobe with mild residual linear atelectasis. No new infiltrates seen. The cardiac silhouette size is within normal limits. The osseous structures are intact. IMPRESSION: 1. Improved aeration left lower lobe with mild residual linear atelectasis. No new infiltrates seen.
--- NOTE | 2022-03-12 11:54 | P.PN ---
Subjective Progress Note Date: 03/12/22 Tolu Sánchez, is a 36-year-old male who presented to [facility] emergency room due to increased somnolence and shortness of breath. He was evaluated in the emergency room vital examination on presentation revealed a temperature of 97.3 pulse 101 respiration 22 blood pressure 115/68 pulse ox 98% on room air Laboratory data revealed a white blood count of 5.2 hemoglobin 11.2 platelet co unt 205 sodium 139 potassium 3.2 chloride 100 CO2 26 BUN 20 creatinine 0.48 Testing in the emergency room revealed chest x-ray done in the emergency room revealed large infiltrate and/or opacification with air bronchogram within the left lung, EKG done in the emergency room revealed sinus tachycardia with right ventricular hypertrophy. Patient was admitted to medical floor for further evaluation and treatment, he was started on IV antibiotics, pulmonary consultation was requested. On 02/28/2022 patient is resting in bed currently maintained on partial nonrebreather. Current vitals temp 97.6, pulse rate 72, respiratory rate 18 blood pressure 97/64 patient stating 98% on partial rebreather at 15 L. Patient remains on IV vancomycin. Infectious disease services have been consulted. Currently blood cell count 6.6. On 03/01/2022 patient remains on partial nonrebreather. Infectious disease and pulmonary services are following this session was held with family per infectious PEG tube placement. Vitals temp 97.4, heart rate 78, respiratory rate 16, blood pressure 100/60 patient satting 98% on partial rebreather 15 L On 03/02/2022 patient was seen and examined on the medical floor he is alert nonverbal in no apparent distress, nurse denies any events or any new complaints, patient is maintained on partial nonrebreather mask on 12 L his vital exam reveals a temperature of 97.4 pulse 67 respiration 18 blood pressure 124/68 pulse ox 96% laboratory data reveals a white blood count of 5.7 hemoglobin 9.8 platelet count 139 BUN is 8 creatinine 0.42 he remains on IV antibiotic Zosyn, pulmonary and infectious disease are following, repeat chest x-ray is ordered for tomorrow On 03/03/2022 patient was seen and examined on the medical floor he is alert, nonverbal in no apparent distress vital examination reveals a temperature of 98 pulse 73 respiration 16 blood pressure 108/70 pulse ox 93% on Ventimask with FiO2 of 50% laboratory data reveals a white blood count of 5.1 hemoglobin 10.3 platelet count 147 BUN 6 creatinine 0.38 On 03/04/2022 patient is resting comfortably in bed. Patient remains on Ventimask. Current vital signs temp 9070, pulse rate 87, respiratory rate 20, blood pressure 140/76. Patient remains on IV Zosyn pulmonary and infectious disease services are following On 03/05/2022 patient was seen and examined on the medical floor he is alert nonverbal in no apparent distress he is still maintained on high flow oxygen no new episodes of fever, temperature is 90.7 pulse 100 respiration 20 blood pressure 159/78 pulse ox 97% on Ventimask white blood count is 8.4 hemoglobin 10.6 platelet count 186 chest x-ray reveals bilateral infiltrates On 03/06/2022 patient was seen and examined on the medical floor he is alert nonverbal in no apparent distress, he is still maintained on oxygen via Ventimask, chest x-ray with minimal improvement, patient is scheduled today for PEG tube placement, will follow closely. 03/07/2022 patient is resting comfortably in bed. Patient is now on 2 L nasal cannula satting 96%. Per surgical services attempt was made for PEG tube placement but was unable to place peg tube due to anatomy. Per surgical services will further discussed with parents in regards to next options for PEG tube placement. Patient remains on IV Zosyn and ID pulmonary and surgical services are following. On 03/08/2022 patient was seen and examined on the medical floor he is alert nonverbal in no apparent distress, temperature is elevated today at 102 pulse 109 respiration 18 blood pressure 128/75 pulse ox 95% on 3 L nasal cannula, i te blood count up to 16.4 from 8.4 yesterday hemoglobin 11 platelet count 313, at this time will add IV Tylenol, increase IV fluid to 125 mL/h, PEG tube was attempted and failed here, family is deciding whether they want patient transferred to [facility] for possible PEG tube placement On 03/09/2022 patient is alert but nonverbal resting in bed. remains on IV Zosyn. Patient having elevated temperature and white count discussed with nursing staff to make infectious disease aware for any potential change in antibiotic. Current vital signs temp 99.4, heart rate 105, blood pressure 101 /55 with a pulse ox of 99% on 2 L. Awaiting family decision in regards to possible transfer for PEG tube placement. On 03/10/2022 patient was seen and examined on the medical floor he is alert nonverbal in no apparent distress father is at the bedside and case was discussed in details with him. At this time family do not want patient to be transferred to any other Hospital. They want to proceed here with surgery for PEG tube for feeding. They understand that patient is a very high risk, and they prefer to continue with care here. On 03/11/2022 patient was seen and examined on the medical floor he is alert nonverbal in no apparent distress, vital exam reveals a temperature of 98 pulse 88 respiration 20 blood pressure 108/72 pulse ox 97% on 2 L Nasal cannula Patient underwent laparoscopic placement of jejunostomy feeding tube yesterday. On 03/12/2022 patient is resting comfortably in bed status post J-tube placement. White blood cell has normalized to 6.8. Plans to restart tube feeding today per dietitian. Patient remains on IV Zosyn current vitals temp 97.9, heart rate 97, respiratory rate 20, blood pressure 141/70 pulse is of 95% on room air Objective - Vital Signs Vital signs: Vital Signs Temp 97.9 F 03/12/22 11:32 Pulse 97 03/12/22 11:32 Resp 20 03/12/22 11:32 BP 141/78 03/12/22 11:32 Pulse Ox 95 03/12/22 11:32 FiO2 50 03/06/22 12:00 Intake & Output 03/11/22 03/12/22 03/12/22 18:59 06:59 18:59 Intake Total 760 Output Total 550 400 700 Balance 210 -400 -700 Weight 50 kg Intake: Intake, IV Titration 760 Amount ACETAMINOPHEN IV (For NPO 100 ) 1,000 mg In Empty Bag 1 bag @ 400 mls/hr IVPB Q6HR [facility] Rx#:[id number] Lactated Ringers 1,000 ml 160 @ 0 mls/hr IV .[facility] Rx#:[id number] Piperacillin-Tazobactam 3 100 .375 gm In Sodium Chloride 0.9% 100 ml @ 25 mls/hr IVPB Q8HR [facility] Rx# :[id number] Sodium Chloride 0.9% 1, 400 000 ml @ 50 mls/hr IV . Q20H [facility] Rx#:[id number] Output: Urine 550 400 700 Other: Voiding Method External Catheter External Catheter External Catheter - Exam In general patient is somnolent responsive only to repeated stimuli HEENT head normocephalic and atraumatic Neck is supple no JVD no goiter no lymphadenopathy no carotid bruit Chest examination reveals a crackles in both lung galicia no wheezing Cardiac exam reveals regular heart sounds S1 and S2 no gallops no murmurs Abdomen is soft nontender no organomegaly with normal bowel sounds Extremity exam reveals no edema no cyanosis or clubbing Neurological examination reveals no gross focal deficits - Labs CBC & Chem 7: 03/12/22 09:33 03/12/22 09:33 Labs: Abnormal Lab Results - Last 24 Hours (Table) 03/11/22 03/12/22 03/12/22 Range/Units 15:52 09:33 09:33 RBC 3.28 L (4.30-5.90) m/uL Hgb 9.2 L (13.0-17.5) gm/dL Hct 30.6 L (39.0-53.0) % MCHC 30.2 L (31.0-37.0) g/dL RDW 19.5 H (11.5-15.5) % Sodium 136 L (137-145) mmol/L Potassium 3.0 L 3.4 L (3.5-5.1) mmol/L BUN 4 L 2 L (9-20) mg/dL Creatinine 0.36 L 0.38 L (0.66-1.25) mg/dL Glucose 73 L (74-99) mg/dL Calcium 8.1 L 8.2 L (8.4-10.2) mg/dL Alkaline Phosphatase 147 H (38-126) U/L Total Protein 6.2 L (6.3-8.2) g/dL Albumin 2.6 L (3.5-5.0) g/dL Microbiology - Last 24 Hours (Table) 03/09/22 11:56 Blood Culture - Preliminary Blood No Growth after 48 hours Assessment and Plan Plan: Acute pneumonia possibly related to aspiration pneumonia Acute hypoxic respiratory failure Previous episodes of aspiration pneumonia including recently in November 2021 Underlying history of developmental delay with severe physical and mental debility patient requires 24-hour care Underlying history of seizure disorder 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 boss CODE STATUS is DO NOT RESUSCITATE Prognosis is guarded
[2022-03-12] MEDS: TOPIRAMATE 15 MG PO SCH ×2 (12:17→17:19)
[2022-03-12] MEDS: DIVALPROEX SPRINKLE 125 MG CAP.SPRINK PO SCH ×2 (12:17→17:19)
[2022-03-12] MEDS: risperiDONE ORAL SOLN 5 MG/5 ML CUP PO SCH (12:43)
[2022-03-12] MEDS ORDERED: POTASSIUM BICARBONATE/CIT AC 20 MEQ TABLET.EFF PO ONE (13:18)
--- NOTE | 2022-03-12 13:23 | P.PN ---
Subjective Progress Note Date: 03/12/22 CHIEF COMPLAINT: Recurrent aspiration pneumonia HISTORY OF PRESENT ILLNESS: Patient is POD #2 status post laparoscopic da shelby assisted placement of jejunostomy feeding tube. Patient is lying in bed. Romeo nuñez's father is at bedside. Patient appears more comfortable today. No further fevers and heart rate normalized. WBC normalized from 18.8-6.8 hemoglobin 9.2 potassium 3.4 PHYSICAL EXAM: VITAL SIGNS: Reviewed. GENERAL: Well-developed in no acute distress. HEENT: No sclera icterus. Extraocular movements grossly intact. Moist buccal mucosa. Head is atraumatic, normocephalic. ABDOMEN: Soft. Nondistended. Incisional dressing clean dry and intact ASSESSMENT: 1. Recurrent aspiration pneumonia 2. Moderate protein calorie malnutrition 3. History of cerebral palsy 4. Hypokalemia PLAN: -Tube feedings to be started today per dietitian recommendations -Medications should be a liquid form or granular form. No crushed medications advised. -Continue supportive care -Continue liquid Tylenol or Motrin as needed -Replace potassium -Check magnesium Physician Manufacturing Team Member note has been reviewed by physician. Signing provider agrees with the documented findings, assessment, and plan of care. I have personally seen and examined the patient, reviewed the DISTANCE EDUCATION TEACHER /PAs history, exam and MDM and agree with the assessment and plan as written. Based on total visit time, I have performed more than 50% of the visit. As above: Patient doing well today. Appears more comfortable. Tube feeds to begin today. Start low-dose. Will follow. Objective - Vital Signs Vital signs: Vital Signs Temp 97.9 F 03/12/22 11:32 Pulse 85 03/12/22 12:32 Resp 20 03/12/22 11:32 BP 141/78 03/12/22 11:32 Pulse Ox 95 03/12/22 11:32 FiO2 50 03/06/22 12:00 Intake & Output 03/11/22 03/12/22 03/12/22 18:59 06:59 18:59 Intake Total 760 Output Total 550 400 700 Balance 210 -400 -700 Weight 50 kg Intake: Intake, IV Titration 760 Amount ACETAMINOPHEN IV (For NPO 100 ) 1,000 mg In Empty Bag 1 bag @ 400 mls/hr IVPB Q6HR [facility] Rx#:[id number] Lactated Ringers 1,000 ml 160 @ 0 mls/hr IV .[facility] Rx#:[id number] Piperacillin-Tazobactam 3 100 .375 gm In Sodium Chloride 0.9% 100 ml @ 25 mls/hr IVPB Q8HR [facility] Rx# :[id number] Sodium Chloride 0.9% 1, 400 000 ml @ 50 mls/hr IV . Q20H [facility] Rx#:[id number] Output: Urine 550 400 700 Other: Voiding Method External Catheter External Catheter External Catheter - Labs CBC & Chem 7: 03/12/22 09:33 03/12/22 09:33 Labs: Abnormal Lab Results - Last 24 Hours (Table) 03/11/22 03/12/22 03/12/22 Range/Units 15:52 09:33 09:33 RBC 3.28 L (4.30-5.90) m/uL Hgb 9.2 L (13.0-17.5) gm/dL Hct 30.6 L (39.0-53.0) % MCHC 30.2 L (31.0-37.0) g/dL RDW 19.5 H (11.5-15.5) % Sodium 136 L (137-145) mmol/L Potassium 3.0 L 3.4 L (3.5-5.1) mmol/L BUN 4 L 2 L (9-20) mg/dL Creatinine 0.36 L 0.38 L (0.66-1.25) mg/dL Glucose 73 L (74-99) mg/dL Calcium 8.1 L 8.2 L (8.4-10.2) mg/dL Alkaline Phosphatase 147 H (38-126) U/L Total Protein 6.2 L (6.3-8.2) g/dL Albumin 2.6 L (3.5-5.0) g/dL Microbiology - Last 24 Hours (Table) 03/09/22 11:56 Blood Culture - Preliminary Blood No Growth after 48 hours
[2022-03-12] MEDS: SODIUM CHLORIDE 0.9% 1,000 ML IV SCH (17:16)
[2022-03-12] MEDS: LACTATED RINGERS 1,000 ML IV SCH (17:44)
[2022-03-13] MEDS: TOPIRAMATE 15 MG PO SCH ×2 (06:02→16:48)
[2022-03-13] MEDS: DIVALPROEX SPRINKLE 125 MG CAP.SPRINK PO SCH ×2 (06:03→16:46)
[2022-03-13] MEDS: risperiDONE ORAL SOLN 5 MG/5 ML CUP PO SCH (06:42)
[2022-03-13 08:09] LABS: Anisocytosis Slight; Basophils % (A) 1 %; Eosinophils # (A) 0.1 k/uL (0-0.7); Eosinophils % (A) 1 %; HCT 28.9 % (39.0-53.0); HGB 8.6 gm/dL (13.0-17.5); Hypochromasia Moderate; Lymphocytes # (A) 1.8 k/uL (1.0-4.8); Lymphocytes % (A) 22 %; MCHC 29.8 g/dL (31.0-37.0); MCV 90.6 fL (80.0-100.0); Mean Platelet Volume 6.7; Monocytes # (A) 0.8 k/uL (0-1.0); Monocytes % (A) 10 %; Neutrophils # (A) 5.1 k/uL (1.3-7.7); Neutrophils % (A) 64 %; Platelet Count 447 k/uL (150-450); RBC 3.19 m/uL (4.30-5.90); RDW 19.8 % (11.5-15.5)
[2022-03-13] MEDS: IPRATROPIUM-ALBUTEROL 3 ML NEB INHALATION SCH ×4 (08:31→20:14)
[2022-03-13 08:36] LABS: ALT 14 U/L (4-49); AST 35 U/L (17-59); African American GFR (CKD) >90 (>60 ml/min/1.73 sqM); Albumin 2.9 g/dL (3.5-5.0); Alkaline Phosphatase 163 U/L (38-126); Anion Gap 13 mmol/L; Blood Urea Nitrogen <2 mg/dL (9-20); Calcium 8.3 mg/dL (8.4-10.2); Carbon Dioxide 26 mmol/L (22-30); Chloride 100 mmol/L (98-107); Glucose 95 mg/dL (74-99); Non-African American GFR(CKD) >90 (>60 ml/min/1.73 sqM); Potassium 3.3 mmol/L (3.5-5.1); Sodium 139 mmol/L (137-145); Total Bilirubin 0.3 mg/dL (0.2-1.3); Total Protein 6.6 g/dL (6.3-8.2)
[2022-03-13] MEDS: LORazepam 2 MG/ML INJ IV SCH ×3 (09:54→23:11)
[2022-03-13] MEDS: PIPERACILLIN-TAZOBACTAM 3.375 GM in SODIUM CHLORIDE 0.9% 100 ML IVPB SCH ×3 (09:54→23:12)
[2022-03-13] MEDS: ENOXAPARIN 30 MG/0.3 ML SYRINGE SQ SCH (09:54)
[2022-03-13] MEDS: LACTATED RINGERS 1,000 ML IV SCH (09:55)
[2022-03-13] MEDS: SODIUM CHLORIDE 0.9% 1,000 ML IV SCH (09:55)
--- NOTE | 2022-03-13 10:55 | P.PN ---
Subjective Progress Note Date: 03/13/22 36-year-old patient was coming into the hospital because of a extensive left andrei ng pneumonia. The patient was noted to be more short of breath at [facility] home and hypoxic and for that reason he was brought into the hospital. He has had previous history of aspiration pneumonia as the patient has significant developmental delay and he has been aspirating food according to the family. 2021, the patient is on room air oxygen and the pulse ox is around 94%. In comparison to his original chest x-ray at time of admission, the left lung consolidation is improved considerably. The patient is currently being prepared for a PEG tube insertion. Technically this will be difficult and the patient will have be taken to the operating room for robotic-assisted PEG tube insertion by Dr. Aldo Onofre. He is currently nothing by mouth. All of the blood cultures of been negative and the patient currently remains on IV Zosyn. The white cell count of 18.8 with a hemoglobin of 8.9. 03/11/2022, the patient is post J tube insertion. The procedure well and without any major complication and the patient is currently on oxygen at 2 L per minute nasal cannula. His, and comfortable. The family has noted some discomfort in his left shoulder and based on that the patient is going to have a MRI of the left shoulder today to rule out any fractures. The patient did have a spike of low-grade temperature of 100.8 and currently is afebrile. His resting comfortably in bed. J tube has not been utilized yet. The most recent chest x-ray from yesterday showed improvement in aeration and the consolidation of the left lung. There is some residual airspace disease in the left lung base. Family is at the bedside. On today's evaluation of 03/12/2022, the patient is resting comfortably in bed. The patient is not having any significant respiratory distress. The patient is on 2 L O2 nasal cannula. The patient underwent a J-tube insertion by general surgery. Technically, it was difficult to insert a PEG tube on this patient. He remains on IV Zosyn. The patient also had an issue with a fractured humerus. MRI of the humerus was done and it showed a slightly displaced healing fracture of the proximal humerus. There was callus formation. No evidence of any tumor in that area. On today's evaluation, the patient's white cell count is at 6.8 with a hemoglobin of 9.2, BUN is at 2 with a creatinine of 0.3 and a sodium level of 138. The patient is also on Lovenox for DVT prophylaxis. Outpatient medication ordered resume. 03/13/2022, the patient is on 2 L O2 nasal cannula. His chest x-ray shows marked improvement in aeration of the left lung. The patient has a J-tube and the patient was started enteral feeding for nutritional support and currently is receiving vital 1.2 at the rate of 15 mL an hour. White cell count is at 8 with a hemoglobin of 8.6. Sodium is at 139, creatinine is at 0.4. He is resting comfortably in bed. No seizure activity has been noted. Family has been checked on him periodically. Objective - Vital Signs Vital signs: Vital Signs Temp 98.5 F 03/13/22 09:39 Pulse 124 H 03/13/22 09:47 Resp 18 03/13/22 09:47 BP 130/97 03/13/22 09:39 Pulse Ox 91 L 03/13/22 09:39 FiO2 50 03/06/22 12:00 Intake & Output 03/12/22 03/13/22 03/13/22 18:59 06:59 18:59 Intake Total 805 Output Total 1400 600 Balance -595 -600 Weight 52 kg Intake: Intake, IV Titration 760 Amount IV Fluid Continuation 1, 400 000 ml @ 0 mls/hr IV .STK -[facility] ONE Rx#:[id number] Lactated Ringers 1,000 ml 160 @ 0 mls/hr IV .STK-[facility] ONE Rx#:[id number] Piperacillin-Tazobactam 3 200 .375 gm In Sodium Chloride 0.9% 100 ml @ 25 mls/hr IVPB Q8HR [facility] Rx# :[id number] Tube Feeding 15 Other 30 Output: Urine 1400 600 Male - External 600 Other: Voiding Method External Catheter External Catheter External Catheter # Bowel Movements 1 - Exam GENERAL EXAM: 36-year-old white male, with developmental delay, , comfortable on 2 L of oxygen by nasal cannula. HEAD: Normocephalic/atraumatic. EYES: Normal reaction of pupils, equal size. Conjunctiva pink, sclera white. NOSE: Clear with pink turbinates. THROAT: No erythema or exudates. NECK: No masses, no JVD, no thyroid enlargement, no adenopathy. CHEST: No chest wall deformity. Symmetrical expansion. LUNGS: Equal air entry with no crackles, wheeze, rhonchi or dullness. Diminished breath on the left compared to the right along with some bronchial breath sounds and crackles in the left lung base. CVS: Regular rate and rhythm, normal S1 and S2, no gallops, no murmurs, no rubs ABDOMEN: Soft, nontender. No hepatosplenomegaly, normal bowel sounds, no guarding or rigidity. The patient has a PEG tube in place. The J tube has not been utilized. Abdomen is soft. EXTREMITIES: No clubbing, no edema, no cyanosis, 2+ pulses and upper and lower extremities. MUSCULOSKELETAL: Muscle strength and tone normal. SPINE: No scoliosis or deformity SKIN: No rashes CENTRAL NERVOUS SYSTEM: Poorly responsive, tachypneic, and respiratory distress. No focal deficits, tone is normal in all 4 extremities. - Labs CBC & Chem 7: 03/13/22 07:48 03/13/22 07:48 Labs: Abnormal Lab Results - Last 24 Hours (Table) 03/13/22 03/13/22 Range/Units 07:48 07:48 RBC 3.19 L (4.30-5.90) m/uL Hgb 8.6 L (13.0-17.5) gm/dL Hct 28.9 L (39.0-53.0) % MCHC 29.8 L (31.0-37.0) g/dL RDW 19.8 H (11.5-15.5) % Potassium 3.3 L (3.5-5.1) mmol/L BUN <2 L (9-20) mg/dL Creatinine 0.43 L (0.66-1.25) mg/dL Calcium 8.3 L (8.4-10.2) mg/dL Alkaline Phosphatase 163 H (38-126) U/L Albumin 2.9 L (3.5-5.0) g/dL Microbiology - Last 24 Hours (Table) 03/09/22 11:56 Blood Culture - Preliminary Blood No Growth after 72 hours Assessment and Plan Plan: . Acute hypoxic respiratory failure related to acute pneumonia, possibly related to acute aspiration. COVID-19 PCR was negative. There is a recurrent event and the patient was Hospital as for left lung pneumonia back in November 2021 and he was treated and he was discharged home without any major difficulties. The patient was readmitted for the same with a significant consolidation of the left lung which has partially improved and the patient is currently on nasal cannula. The patient is post J tube insertion. The patient is currently on 2 L of oxygen by nasal cannula. The patient is complaining course of Zosyn. The patient has marked improvement in aeration of the left lung on today's chest x-ray. The patient is on 2 L O2 nasal cannula. Start on enteral feeding for nutritional support through the J-tube. . Aspiration, recurrent . Recent hospitalization for pneumonia and hypoxic respiratory failure . Seizure disorder . History of developmental delay . Patient is nonverbal at baseline . History of meningitis with brain injury at 7 weeks of age Plan Oxygen at 2 liters per minute nasal cannula Follow-up from today chest x-ray shows marked improvement of the left lung aeration The white cell count is normal and the patient started on J-tube feeding for enteral support DNR/DNI CODE STATUS Keep Zosyn IV fluids to kvo Aspiration precautions Old humerus fracture on the left based on the MRI findings His prognosis is quite poor Pulmonary critical care services we'll sign off the case.
--- NOTE | 2022-03-13 11:48 | P.PN ---
Subjective Progress Note Date: 03/13/22 CHIEF COMPLAINT: Recurrent aspiration pneumonia HISTORY OF PRESENT ILLNESS: Patient is POD #3 status post laparoscopic da shelby assisted placement of jejunostomy feeding tube. Patient is lying in bed. Romeo nuñez appears comfortable. Tube feedings were started yesterday. Currently at 15 mL per hour. He is tolerating tube feeds. He is scheduled to have advancement of tube feeds at 11:00 today. No nausea or vomiting reported. He did have a low-grade temp 99 he has been tachycardic. WBC 8.0 hemoglobin 8.6 sodium 139 potassium 3.3 magnesium 1.6 PHYSICAL EXAM: VITAL SIGNS: Reviewed. GENERAL: Well-developed in no acute distress. HEENT: No sclera icterus. Extraocular movements grossly intact. Moist buccal mucosa. Head is atraumatic, normocephalic. ABDOMEN: Soft. Nondistended. mild discomfort with palpation of abdomen. J- tube site clean dry and intact ASSESSMENT: 1. Recurrent aspiration pneumonia 2. Moderate protein calorie malnutrition 3. History of cerebral palsy 4. Hypokalemia 5. Hypomagnesemia PLAN: -Titrate tube feedings per dietitian -Medications should be a liquid form or granular form. No crushed medications advised. -Continue supportive care -Continue liquid Tylenol or Motrin as needed -Replace potassium -Replace magnesium Physician Restaurant Crew Member note has been reviewed by physician. Signing provider agrees with the documented findings, assessment, and plan of care. I have personally seen and examined the patient, reviewed the DIVISION LEADER /PAs history, exam and MDM and agree with the assessment and plan as written. Based on total visit time, I have performed more than 50% of the visit. As above: Patient without obvious discomfort. Low-grade temp of 99. Mildly tachycardic. Patient tolerating tube feeds at 15 mL per hour. No bowel movement. Will follow. Objective - Vital Signs Vital signs: Vital Signs Temp 98.5 F 03/13/22 09:39 Pulse 124 H 03/13/22 09:47 Resp 18 03/13/22 09:47 BP 130/97 03/13/22 09:39 Pulse Ox 91 L 03/13/22 09:39 FiO2 50 03/06/22 12:00 Intake & Output 03/12/22 03/13/22 03/13/22 18:59 06:59 18:59 Intake Total 805 Output Total 1400 600 Balance -595 -600 Weight 52 kg Intake: Intake, IV Titration 760 Amount IV Fluid Continuation 1, 400 000 ml @ 0 mls/hr IV .STK -[facility] ONE Rx#:[id number] Lactated Ringers 1,000 ml 160 @ 0 mls/hr IV .STK-[facility] Rx#:[id number] Piperacillin-Tazobactam 3 200 .375 gm In Sodium Chloride 0.9% 100 ml @ 25 mls/hr IVPB Q8HR [facility] Rx# :[id number] Tube Feeding 15 Other 30 Output: Urine 1400 600 Male - External 600 Other: Voiding Method External Catheter External Catheter External Catheter # Bowel Movements 1 - Labs CBC & Chem 7: 03/13/22 07:48 03/13/22 07:48 Labs: Abnormal Lab Results - Last 24 Hours (Table) 03/13/22 03/13/22 Range/Units 07:48 07:48 RBC 3.19 L (4.30-5.90) m/uL Hgb 8.6 L (13.0-17.5) gm/dL Hct 28.9 L (39.0-53.0) % MCHC 29.8 L (31.0-37.0) g/dL RDW 19.8 H (11.5-15.5) % Potassium 3.3 L (3.5-5.1) mmol/L BUN <2 L (9-20) mg/dL Creatinine 0.43 L (0.66-1.25) mg/dL Calcium 8.3 L (8.4-10.2) mg/dL Alkaline Phosphatase 163 H (38-126) U/L Albumin 2.9 L (3.5-5.0) g/dL Microbiology - Last 24 Hours (Table) 03/09/22 11:56 Blood Culture - Preliminary Blood No Growth after 72 hours
[2022-03-13] MEDS ORDERED: MAGNESIUM SULFATE-D5W PMX 1 GM in DEXTROSE/WATER 1 100ML.BAG IVPB ONE (12:00)
[2022-03-13] MEDS ORDERED: POTASSIUM BICARBONATE/CIT AC 20 MEQ TABLET.EFF PO ONE (12:30)
--- NOTE | 2022-03-13 16:58 | P.PN ---
Subjective Progress Note Date: 03/13/22 Tolu Sánchez, is a 36-year-old male who presented to [facility] emergency room due to increased somnolence and shortness of breath. He was evaluated in the emergency room vital examination on presentation revealed a temperature of 97.3 pulse 101 respiration 22 blood pressure 115/68 pulse ox 98% on room air Laboratory data revealed a white blood count of 5.2 hemoglobin 11.2 platelet co unt 205 sodium 139 potassium 3.2 chloride 100 CO2 26 BUN 20 creatinine 0.48 Testing in the emergency room revealed chest x-ray done in the emergency room revealed large infiltrate and/or opacification with air bronchogram within the left lung, EKG done in the emergency room revealed sinus tachycardia with right ventricular hypertrophy. Patient was admitted to medical floor for further evaluation and treatment, he was started on IV antibiotics, pulmonary consultation was requested. On 02/28/2022 patient is resting in bed currently maintained on partial nonrebreather. Current vitals temp 97.6, pulse rate 72, respiratory rate 18 blood pressure 97/64 patient stating 98% on partial rebreather at 15 L. Patient remains on IV vancomycin. Infectious disease services have been consulted. Currently blood cell count 6.6. On 03/01/2022 patient remains on partial nonrebreather. Infectious disease and pulmonary services are following this session was held with family per infectious PEG tube placement. Vitals temp 97.4, heart rate 78, respiratory rate 16, blood pressure 100/60 patient satting 98% on partial rebreather 15 L On 03/02/2022 patient was seen and examined on the medical floor he is alert nonverbal in no apparent distress, nurse denies any events or any new complaints, patient is maintained on partial nonrebreather mask on 12 L his vital exam reveals a temperature of 97.4 pulse 67 respiration 18 blood pressure 124/68 pulse ox 96% laboratory data reveals a white blood count of 5.7 hemoglobin 9.8 platelet count 139 BUN is 8 creatinine 0.42 he remains on IV antibiotic Zosyn, pulmonary and infectious disease are following, repeat chest x-ray is ordered for tomorrow On 03/03/2022 patient was seen and examined on the medical floor he is alert, nonverbal in no apparent distress vital examination reveals a temperature of 98 pulse 73 respiration 16 blood pressure 108/70 pulse ox 93% on Ventimask with FiO2 of 50% laboratory data reveals a white blood count of 5.1 hemoglobin 10.3 platelet count 147 BUN 6 creatinine 0.38 On 03/04/2022 patient is resting comfortably in bed. Patient remains on Ventimask. Current vital signs temp 9070, pulse rate 87, respiratory rate 20, blood pressure 140/76. Patient remains on IV Zosyn pulmonary and infectious disease services are following On 03/05/2022 patient was seen and examined on the medical floor he is alert nonverbal in no apparent distress he is still maintained on high flow oxygen no new episodes of fever, temperature is 90.7 pulse 100 respiration 20 blood pressure 159/78 pulse ox 97% on Ventimask white blood count is 8.4 hemoglobin 10.6 platelet count 186 chest x-ray reveals bilateral infiltrates On 03/06/2022 patient was seen and examined on the medical floor he is alert nonverbal in no apparent distress, he is still maintained on oxygen via Ventimask, chest x-ray with minimal improvement, patient is scheduled today for PEG tube placement, will follow closely. 03/07/2022 patient is resting comfortably in bed. Patient is now on 2 L nasal cannula satting 96%. Per surgical services attempt was made for PEG tube placement but was unable to place peg tube due to anatomy. Per surgical services will further discussed with parents in regards to next options for PEG tube placement. Patient remains on IV Zosyn and ID pulmonary and surgical services are following. On 03/08/2022 patient was seen and examined on the medical floor he is alert nonverbal in no apparent distress, temperature is elevated today at 102 pulse 109 respiration 18 blood pressure 128/75 pulse ox 95% on 3 L nasal cannula, i te blood count up to 16.4 from 8.4 yesterday hemoglobin 11 platelet count 313, at this time will add IV Tylenol, increase IV fluid to 125 mL/h, PEG tube was attempted and failed here, family is deciding whether they want patient transferred to [facility] for possible PEG tube placement On 03/09/2022 patient is alert but nonverbal resting in bed. remains on IV Zosyn. Patient having elevated temperature and white count discussed with nursing staff to make infectious disease aware for any potential change in antibiotic. Current vital signs temp 99.4, heart rate 105, blood pressure 101 /55 with a pulse ox of 99% on 2 L. Awaiting family decision in regards to possible transfer for PEG tube placement. On 03/10/2022 patient was seen and examined on the medical floor he is alert nonverbal in no apparent distress father is at the bedside and case was discussed in details with him. At this time family do not want patient to be transferred to any other Hospital. They want to proceed here with surgery for PEG tube for feeding. They understand that patient is a very high risk, and they prefer to continue with care here. On 03/11/2022 patient was seen and examined on the medical floor he is alert nonverbal in no apparent distress, vital exam reveals a temperature of 98 pulse 88 respiration 20 blood pressure 108/72 pulse ox 97% on 2 L Nasal cannula Patient underwent laparoscopic placement of jejunostomy feeding tube yesterday. On 03/12/2022 patient is resting comfortably in bed status post J-tube placement. White blood cell has normalized to 6.8. Plans to restart tube feeding today per dietitian. Patient remains on IV Zosyn current vitals temp 97.9, heart rate 97, respiratory rate 20, blood pressure 141/70 pulse is of 95% on room air. On 03/13/2022 patient was seen and examined on the medical floor he is alert nonverbal in no apparent distress vital examination reveals a temperature of 98.1 pulse 101 respiration 18 blood pressure 146/86 pulse ox 94% on 2 L nasal cannula, laboratory data reveals a white blood count of 8.0 hemoglobin 8.6 platelet count 447 sodium 139 potassium 3.3 chloride 100 CO2 26 BUN less than 2 creatinine 0.43 at this time continue with current medication Will replace potassium will check iron level and magnesium level will follow closely Objective - Vital Signs Vital signs: Vital Signs Temp 99.3 F 03/13/22 12:38 Pulse 101 H 03/13/22 12:38 Resp 18 03/13/22 12:38 BP 145/63 03/13/22 12:38 Pulse Ox 96 03/13/22 12:38 FiO2 50 03/06/22 12:00 Intake & Output 03/12/22 03/13/22 03/13/22 18:59 06:59 18:59 Intake Total 805 15 Output Total 1400 600 Balance -595 -585 Weight 52 kg Intake: Intake, IV Titration 760 Amount IV Fluid Continuation 1, 400 000 ml @ 0 mls/hr IV .STK -MED ONE Rx#:[id number] Lactated Ringers 1,000 ml 160 @ 0 mls/hr IV .STK-[facility] ONE Rx#:[id number] Piperacillin-Tazobactam 3 200 .375 gm In Sodium Chloride 0.9% 100 ml @ 25 mls/hr IVPB Q8HR [facility] Rx# :[id number] Tube Feeding 15 15 Other 30 Output: Urine 1400 600 Male - External 600 Other: Voiding Method External Catheter External Catheter External Catheter # Bowel Movements 1 - Exam In general patient is somnolent responsive only to repeated stimuli HEENT head normocephalic and atraumatic Neck is supple no JVD no goiter no lymphadenopathy no carotid bruit Chest examination reveals a crackles in both lung galicia no wheezing Cardiac exam reveals regular heart sounds S1 and S2 no gallops no murmurs Abdomen is soft nontender no organomegaly with normal bowel sounds Extremity exam reveals no edema no cyanosis or clubbing Neurological examination reveals no gross focal deficits - Labs CBC & Chem 7: 03/13/22 07:48 03/13/22 07:48 Labs: Abnormal Lab Results - Last 24 Hours (Table) 03/13/22 03/13/22 Range/Units 07:48 07:48 RBC 3.19 L (4.30-5.90) m/uL Hgb 8.6 L (13.0-17.5) gm/dL Hct 28.9 L (39.0-53.0) % MCHC 29.8 L (31.0-37.0) g/dL RDW 19.8 H (11.5-15.5) % Potassium 3.3 L (3.5-5.1) mmol/L BUN <2 L (9-20) mg/dL Creatinine 0.43 L (0.66-1.25) mg/dL Calcium 8.3 L (8.4-10.2) mg/dL Alkaline Phosphatase 163 H (38-126) U/L Albumin 2.9 L (3.5-5.0) g/dL Microbiology - Last 24 Hours (Table) 03/09/22 11:56 Blood Culture - Preliminary Blood No Growth after 96 hours Assessment and Plan Plan: Acute pneumonia possibly related to aspiration pneumonia Acute hypoxic respiratory failure Previous episodes of aspiration pneumonia including recently in November 2021 Underlying history of developmental delay with severe physical and mental debility patient requires 24-hour care Underlying history of seizure disorder Remote history of meningitis and director oncology with the brain injury For DVT prophylaxis he is maintained on subcu Lovenox On 03/06/2022 to attempt was made a PEG tube placement but was unsuccessful further planning eval by surgical services 03/09/2022 repeat blood culture ordered due to elevated white count and febrile 03/10/2020 J tube placement per Dr. boss CODE STATUS is DO NOT RESUSCITATE Prognosis is guarded
[2022-03-13 17:41] LABS: Magnesium 2.1 mg/dL (1.6-2.3)
--- NOTE | 2022-03-13 22:47 | P.PN ---
Subjective Progress Note Date: 03/12/22 Principal diagnosis: Recurrent aspiration pneumonia Patient is a 36 year old male with mental and developmental delay admitted to the hospital with increasing shortness of breath and concerning for extensive left-sided pneumonia likely aspiration etiology. Patient did have EGD and attempted to place a PEG tube placement which was not successful on 03/06/2022, patient is status post laparoscopic PEG tube placement on 03/10/2022 On today's evaluation that is 03/12/2022, patient continues to be afebrile, the patient is breathing comfortably on 2 L nasal cannula, no vomiting diarrhea or any other changes reported by the nursing staff Objective - Vital Signs Vital signs: Vital Signs Temp 97.9 F 03/12/22 11:32 Pulse 85 03/12/22 12:32 Resp 20 03/12/22 11:32 BP 141/78 03/12/22 11:32 Pulse Ox 95 03/12/22 11:32 FiO2 50 03/06/22 12:00 Intake & Output 03/11/22 03/12/22 03/12/22 18:59 06:59 18:59 Intake Total 760 Output Total 550 400 700 Balance 210 -400 -700 Weight 50 kg Intake: Intake, IV Titration 760 Amount ACETAMINOPHEN IV (For NPO 100 ) 1,000 mg In Empty Bag 1 bag @ 400 mls/hr IVPB Q6HR [facility] Rx#:[id number] Lactated Ringers 1,000 ml 160 @ 0 mls/hr IV .STK-MED ONE Rx#:[id number] Piperacillin-Tazobactam 3 100 .375 gm In Sodium Chloride 0.9% 100 ml @ 25 mls/hr IVPB Q8HR [facility] Rx# :[id number] Sodium Chloride 0.9% 1, 400 000 ml @ 50 mls/hr IV . Q20H [facility] Rx#:[id number] Output: Urine 550 400 700 Other: Voiding Method External Catheter External Catheter External Catheter - Exam GENERAL DESCRIPTION: Middle-aged male lying in bed in no distress RESPIRATORY SYSTEM: Unlabored breathing , coarse Bilaterally HEART: S1 S2 regular rate and rhythm , ABDOMEN: Soft , no tenderness EXTREMITIES: No edema feet - Labs CBC & Chem 7: 03/13/22 07:48 03/13/22 07:48 Labs: Abnormal Lab Results - Last 24 Hours (Table) 06/04/2503/12/22 03/12/22 Range/Units 15:52 09:33 09:33 RBC 3.28 L (4.30-5.90) m/uL Hgb 9.2 L (13.0-17.5) gm/dL Hct 30.6 L (39.0-53.0) % MCHC 30.2 L (31.0-37.0) g/dL RDW 19.5 H (11.5-15.5) % Sodium 136 L (137-145) mmol/L Potassium 3.0 L 3.4 L (3.5-5.1) mmol/L BUN 4 L 2 L (9-20) mg/dL Creatinine 0.36 L 0.38 L (0.66-1.25) mg/dL Glucose 73 L (74-99) mg/dL Calcium 8.1 L 8.2 L (8.4-10.2) mg/dL Alkaline Phosphatase 147 H (38-126) U/L Total Protein 6.2 L (6.3-8.2) g/dL Albumin 2.6 L (3.5-5.0) g/dL Microbiology - Last 24 Hours (Table) 03/09/22 11:56 Blood Culture - Preliminary Blood No Growth after 72 hours Assessment and Plan (1) Pneumonia Current Visit: Yes Status: Acute Code(s): J18.9 - PNEUMONIA, UNSPECIFIED ORGANISM SNOMED Code(s): 373465644 Plan: 1patient presented to hospital with increasing shortness of breath with evidence of extensive pneumonia on the left lung likely secondary to aspiration in this patient with underlying mental impairment. 2patient did have attempted PEG tube placement via EGD which was not successful now plan for possible open versus laparoscopic feeding tube placement , 3- blood culture negative sputum could not be collected 4 patient has shown clinical improvement and will continue with the [facility] monitor his clinical course closely Time with Patient: Less than 30
--- NOTE | 2022-03-13 22:48 | P.PN ---
Subjective Progress Note Date: 03/13/22 Principal diagnosis: Recurrent aspiration pneumonia Patient is a 36 year old male with mental and developmental delay admitted to the hospital with increasing shortness of breath and concerning for extensive left-sided pneumonia likely aspiration etiology. Patient did have EGD and attempted to place a PEG tube placement which was not successful on 03/06/2022, patient is status post laparoscopic PEG tube placement on 03/10/2022 On today's evaluation that is 03/13/2022, patient remains to be afebrile, the patient is breathing comfortably on room air, patient has been started on tube feeds which he has been tolerating so far, no vomiting diarrhea or any other changes reported by the nursing staff Objective - Vital Signs Vital signs: Vital Signs Temp 99.3 F 03/13/22 12:38 Pulse 101 H 03/13/22 12:38 Resp 18 03/13/22 12:38 BP 145/63 03/13/22 12:38 Pulse Ox 96 03/13/22 12:38 FiO2 50 03/06/22 12:00 Intake & Output 03/12/22 03/13/22 03/13/22 18:59 06:59 18:59 Intake Total 805 15 Output Total 1400 600 Balance -595 -585 Weight 52 kg Intake: Intake, IV Titration 760 Amount IV Fluid Continuation 1, 400 000 ml @ 0 mls/hr IV .STK -[facility] ONE Rx#:[id number] Lactated Ringers 1,000 ml 160 @ 0 mls/hr IV .STK-[facility] ONE Rx#:[id number] Piperacillin-Tazobactam 3 200 .375 gm In Sodium Chloride 0.9% 100 ml @ 25 mls/hr IVPB Q8HR ON LICENSE OF [facility] Rx# :[id number] Tube Feeding 15 15 Other 30 Output: Urine 1400 600 Male - External 600 Other: Voiding Method External Catheter External Catheter External Catheter # Bowel Movements 1 - Exam GENERAL DESCRIPTION: Middle-aged male lying in bed in no distress RESPIRATORY SYSTEM: Unlabored breathing , coarse Bilaterally HEART: S1 S2 regular rate and rhythm , ABDOMEN: Soft , no tenderness EXTREMITIES: No edema feet - Labs CBC & Chem 7: 03/13/22 07:48 03/13/22 07:48 Labs: Abnormal Lab Results - Last 24 Hours (Table) 03/13/22 03/13/22 Range/Units 07:48 07:48 RBC 3.19 L (4.30-5.90) m/uL Hgb 8.6 L (13.0-17.5) gm/dL Hct 28.9 L (39.0-53.0) % MCHC 29.8 L (31.0-37.0) g/dL RDW 19.8 H (11.5-15.5) % Potassium 3.3 L (3.5-5.1) mmol/L BUN <2 L (9-20) mg/dL Creatinine 0.43 L (0.66-1.25) mg/dL Calcium 8.3 L (8.4-10.2) mg/dL Alkaline Phosphatase 163 H (38-126) U/L Albumin 2.9 L (3.5-5.0) g/dL Microbiology - Last 24 Hours (Table) 03/09/22 11:56 Blood Culture - Preliminary Blood No Growth after 72 hours Assessment and Plan (1) Pneumonia Current Visit: Yes Status: Acute Code(s): J18.9 - PNEUMONIA, UNSPECIFIED ORGANISM SNOMED Code(s): 174805549 Plan: 1patient presented to hospital with increasing shortness of breath with evidence of extensive pneumonia on the left lung likely secondary to aspiration in this patient with underlying mental impairment. 2patient did have attempted PEG tube placement via EGD which was not successful now plan for possible open versus laparoscopic feeding tube placement , 3- blood culture negative sputum could not be collected 4 patient has shown clinical improvement and white count has normalized, patient will continue with the Zosyn while inpatient and transition to antibiotic down the PEG tube on discharge Time with Patient: Less than 30
[2022-03-14 02:02] LABS: % Iron Saturation 13.39 (15.00-50.00)
[2022-03-14] MEDS: SODIUM CHLORIDE 0.9% 1,000 ML IV SCH (03:31)
[2022-03-14] MEDS: risperiDONE ORAL SOLN 5 MG/5 ML CUP PO SCH (05:44)
[2022-03-14] MEDS: DIVALPROEX SPRINKLE 125 MG CAP.SPRINK PO SCH ×2 (05:44→17:24)
[2022-03-14] MEDS: TOPIRAMATE 15 MG PO SCH ×2 (05:44→17:24)
[2022-03-14] MEDS: IPRATROPIUM-ALBUTEROL 3 ML NEB INHALATION SCH ×4 (08:11→20:16)
[2022-03-14] MEDS: PIPERACILLIN-TAZOBACTAM 3.375 GM in SODIUM CHLORIDE 0.9% 100 ML IVPB SCH ×3 (09:10→23:06)
[2022-03-14] MEDS: ENOXAPARIN 30 MG/0.3 ML SYRINGE SQ SCH (09:10)
[2022-03-14] MEDS: LORazepam 2 MG/ML INJ IV SCH ×3 (09:10→23:06)
--- NOTE | 2022-03-14 09:58 | P.PN ---
Subjective Progress Note Date: 03/14/22 Tolu Sánchez, is a 36-year-old male who presented to [facility] emergency room due to increased somnolence and shortness of breath. He was evaluated in the emergency room vital examination on presentation revealed a temperature of 97.3 pulse 101 respiration 22 blood pressure 115/68 pulse ox 98% on room air Laboratory data revealed a white blood count of 5.2 hemoglobin 11.2 platelet co unt 205 sodium 139 potassium 3.2 chloride 100 CO2 26 BUN 20 creatinine 0.48 Testing in the emergency room revealed chest x-ray done in the emergency room revealed large infiltrate and/or opacification with air bronchogram within the left lung, EKG done in the emergency room revealed sinus tachycardia with right ventricular hypertrophy. Patient was admitted to medical floor for further evaluation and treatment, he was started on IV antibiotics, pulmonary consultation was requested. On 02/28/2022 patient is resting in bed currently maintained on partial nonrebreather. Current vitals temp 97.6, pulse rate 72, respiratory rate 18 blood pressure 97/64 patient stating 98% on partial rebreather at 15 L. Patient remains on IV vancomycin. Infectious disease services have been consulted. Currently blood cell count 6.6. On 03/01/2022 patient remains on partial nonrebreather. Infectious disease and pulmonary services are following this session was held with family per infectious PEG tube placement. Vitals temp 97.4, heart rate 78, respiratory rate 16, blood pressure 100/60 patient satting 98% on partial rebreather 15 L On 03/02/2022 patient was seen and examined on the medical floor he is alert nonverbal in no apparent distress, nurse denies any events or any new complaints, patient is maintained on partial nonrebreather mask on 12 L his vital exam reveals a temperature of 97.4 pulse 67 respiration 18 blood pressure 124/68 pulse ox 96% laboratory data reveals a white blood count of 5.7 hemoglobin 9.8 platelet count 139 BUN is 8 creatinine 0.42 he remains on IV antibiotic Zosyn, pulmonary and infectious disease are following, repeat chest x-ray is ordered for tomorrow On 03/03/2022 patient was seen and examined on the medical floor he is alert, nonverbal in no apparent distress vital examination reveals a temperature of 98 pulse 73 respiration 16 blood pressure 108/70 pulse ox 93% on Ventimask with FiO2 of 50% laboratory data reveals a white blood count of 5.1 hemoglobin 10.3 platelet count 147 BUN 6 creatinine 0.38 On 03/04/2022 patient is resting comfortably in bed. Patient remains on Ventimask. Current vital signs temp 9070, pulse rate 87, respiratory rate 20, blood pressure 140/76. Patient remains on IV Zosyn pulmonary and infectious disease services are following On 03/05/2022 patient was seen and examined on the medical floor he is alert nonverbal in no apparent distress he is still maintained on high flow oxygen no new episodes of fever, temperature is 90.7 pulse 100 respiration 20 blood pressure 159/78 pulse ox 97% on Ventimask white blood count is 8.4 hemoglobin 10.6 platelet count 186 chest x-ray reveals bilateral infiltrates On 03/06/2022 patient was seen and examined on the medical floor he is alert nonverbal in no apparent distress, he is still maintained on oxygen via Ventimask, chest x-ray with minimal improvement, patient is scheduled today for PEG tube placement, will follow closely. 03/07/2022 patient is resting comfortably in bed. Patient is now on 2 L nasal cannula satting 96%. Per surgical services attempt was made for PEG tube placement but was unable to place peg tube due to anatomy. Per surgical services will further discussed with parents in regards to next options for PEG tube placement. Patient remains on IV Zosyn and ID pulmonary and surgical services are following. On 03/08/2022 patient was seen and examined on the medical floor he is alert nonverbal in no apparent distress, temperature is elevated today at 102 pulse 109 respiration 18 blood pressure 128/75 pulse ox 95% on 3 L nasal cannula, i te blood count up to 16.4 from 8.4 yesterday hemoglobin 11 platelet count 313, at this time will add IV Tylenol, increase IV fluid to 125 mL/h, PEG tube was attempted and failed here, family is deciding whether they want patient transferred to [facility] for possible PEG tube placement On 03/09/2022 patient is alert but nonverbal resting in bed. remains on IV Zosyn. Patient having elevated temperature and white count discussed with nursing staff to make infectious disease aware for any potential change in antibiotic. Current vital signs temp 99.4, heart rate 105, blood pressure 101 /55 with a pulse ox of 99% on 2 L. Awaiting family decision in regards to possible transfer for PEG tube placement. On 03/10/2022 patient was seen and examined on the medical floor he is alert nonverbal in no apparent distress father is at the bedside and case was discussed in details with him. At this time family do not want patient to be transferred to any other Hospital. They want to proceed here with surgery for PEG tube for feeding. They understand that patient is a very high risk, and they prefer to continue with care here. On 03/11/2022 patient was seen and examined on the medical floor he is alert nonverbal in no apparent distress, vital exam reveals a temperature of 98 pulse 88 respiration 20 blood pressure 108/72 pulse ox 97% on 2 L Nasal cannula Patient underwent laparoscopic placement of jejunostomy feeding tube yesterday. On 03/12/2022 patient is resting comfortably in bed status post J-tube placement. White blood cell has normalized to 6.8. Plans to restart tube feeding today per dietitian. Patient remains on IV Zosyn current vitals temp 97.9, heart rate 97, respiratory rate 20, blood pressure 141/70 pulse is of 95% on room air. On 03/13/2022 patient was seen and examined on the medical floor he is alert nonverbal in no apparent distress vital examination reveals a temperature of 98.1 pulse 101 respiration 18 blood pressure 146/86 pulse ox 94% on 2 L nasal cannula, laboratory data reveals a white blood count of 8.0 hemoglobin 8.6 platelet count 447 sodium 139 potassium 3.3 chloride 100 CO2 26 BUN less than 2 creatinine 0.43 at this time continue with current medication Will replace potassium will check iron level and magnesium level will follow closely On 03/14/2022 patient is resting comfortably in bed per nursing staff patient has been tolerating feedings through G-tube. Family at bedside and at this time is requesting hospice consult due to multiple episodes in declining health status. Spoke with nurse consult for hospice will be placed. Current vital signs temp 98.3, heart rate 108, blood pressure 119/73 with a pulse ox of 97% on 2 L. Patient remains on IV Zosyn Objective - Vital Signs Vital signs: Vital Signs Temp 98.3 F 03/14/22 08:00 Pulse 108 H 03/14/22 08:20 Resp 18 03/14/22 08:00 BP 119/73 03/14/22 08:00 Pulse Ox 97 03/14/22 08:00 FiO2 50 03/06/22 12:00 Intake & Output 03/13/22 03/14/22 03/14/22 18:59 06:59 18:59 Intake Total 30 Output Total 1999 Balance -1970 Weight 52 kg Intake: Tube Feeding 30 Output: Urine 1999 Male - External 600 Other: Voiding Method External Catheter External Catheter # Bowel Movements 1 - Exam In general patient is somnolent responsive only to repeated stimuli HEENT head normocephalic and atraumatic Neck is supple no JVD no goiter no lymphadenopathy no carotid bruit Chest examination reveals a crackles in both lung galicia no wheezing Cardiac exam reveals regular heart sounds S1 and S2 no gallops no murmurs Abdomen is soft nontender no organomegaly with normal bowel sounds Extremity exam reveals no edema no cyanosis or clubbing Neurological examination reveals no gross focal deficits - Labs CBC & Chem 7: 03/13/22 07:48 03/13/22 07:48 Labs: Abnormal Lab Results - Last 24 Hours (Table) 03/13/22 Range/Units 17:01 Iron 24 L (65-175) ug/dL TIBC 178 L (228-460) ug/dL % Saturation 13.39 L (15.00-50.00) Transferrin 127.0 L (204.0-354.0) mg/dL Microbiology - Last 24 Hours (Table) 03/09/22 11:56 Blood Culture - Preliminary Blood No Growth after 96 hours Assessment and Plan Plan: Acute pneumonia possibly related to aspiration pneumonia Acute hypoxic respiratory failure Previous episodes of aspiration pneumonia including recently in November 2021 Underlying history of developmental delay with severe physical and mental debility patient requires 24-hour care Underlying history of seizure disorder Remote history of 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 boss 03/14/2022 family requesting hospice consult CODE STATUS is DO NOT RESUSCITATE Prognosis is guarded
[2022-03-14] MEDS: LACTATED RINGERS 1,000 ML IV SCH (10:33)
--- NOTE | 2022-03-14 13:03 | P.PN ---
Subjective Progress Note Date: 03/14/22 CHIEF COMPLAINT: Recurrent aspiration pneumonia HISTORY OF PRESENT ILLNESS: Patient is POD #4 status post laparoscopic da shelby assisted placement of jejunostomy feeding tube. Patient is lying in bed. His last agitated with his minutes off. Patient is tolerating tube feeds. He will be increased from 25-30 which is his goal rate. He did have a low-grade temp of 100.3 last night has been mildly tachycardic. Family is having hospice meeting today. Labs pending PHYSICAL EXAM: VITAL SIGNS: Reviewed. GENERAL: Well-developed in no acute distress. HEENT: No sclera icterus. Extraocular movements grossly intact. Moist buccal mucosa. Head is atraumatic, normocephalic. ABDOMEN: Soft. Nondistended. mild discomfort with palpation of abdomen. J- tube site clean dry and intact ASSESSMENT: 1. Recurrent aspiration pneumonia 2. Moderate protein calorie malnutrition 3. History of cerebral palsy 4. Hypokalemia 5. Hypomagnesemia PLAN: -Continue tube feedings -Medications should be a liquid form or granular form. No crushed medications advised. -Continue supportive care -Continue liquid Tylenol as needed for pain -Continue to monitor electrolytes Physician Plastic Worker note has been reviewed by physician. Signing provider agrees with the documented findings, assessment, and plan of care. Objective - Vital Signs Vital signs: Vital Signs Temp 98.3 F 03/14/22 08:00 Pulse 115 H 03/14/22 11:33 Resp 18 03/14/22 08:00 BP 119/73 03/14/22 08:00 Pulse Ox 97 03/14/22 08:00 FiO2 50 03/06/22 12:00 Intake & Output 03/13/22 03/14/22 03/14/22 18:59 06:59 18:59 Intake Total 30 100 Output Total 1999 300 Balance -1970 -200 Weight 52 kg Intake: Tube Feeding 30 100 Output: Urine 1999 300 Male - External 600 Other: Voiding Method External Catheter External Catheter External Catheter # Bowel Movements 1 - Labs CBC & Chem 7: 03/13/22 07:48 03/13/22 07:48 Labs: Abnormal Lab Results - Last 24 Hours (Table) 03/13/22 Range/Units 17:01 Iron 24 L (65-175) ug/dL TIBC 178 L (228-460) ug/dL % Saturation 13.39 L (15.00-50.00) Transferrin 127.0 L (204.0-354.0) mg/dL Microbiology - Last 24 Hours (Table) 03/09/22 11:56 Blood Culture - Preliminary Blood No Growth after 96 hours
[2022-03-14 13:15] LABS: African American GFR (CKD) >90 (>60 ml/min/1.73 sqM); Anion Gap 9 mmol/L; Blood Urea Nitrogen 4 mg/dL (9-20); Calcium 8.3 mg/dL (8.4-10.2); Carbon Dioxide 27 mmol/L (22-30); Chloride 105 mmol/L (98-107); Glucose 112 mg/dL (74-99); Magnesium 2.1 mg/dL (1.6-2.3); Non-African American GFR(CKD) >90 (>60 ml/min/1.73 sqM); Phosphorus 4.3 mg/dL (2.5-4.5); Potassium 3.6 mmol/L (3.5-5.1); Sodium 141 mmol/L (137-145)
[2022-03-14 13:42] LABS: Anisocytosis Slight; Basophils # (A) 0.1 k/uL (0-0.2); Basophils % (A) 1 %; Eosinophils # (A) 0.1 k/uL (0-0.7); Eosinophils % (A) 1 %; HCT 28.5 % (39.0-53.0); HGB 8.6 gm/dL (13.0-17.5); Hypochromasia Moderate; Lymphocytes # (A) 1.8 k/uL (1.0-4.8); Lymphocytes % (A) 21 %; MCH 27.2 pg (25.0-35.0); MCHC 30.1 g/dL (31.0-37.0); MCV 90.2 fL (80.0-100.0); Mean Platelet Volume 6.8; Monocytes % (A) 12 %; Neutrophils # (A) 5.6 k/uL (1.3-7.7); Neutrophils % (A) 65 %; Platelet Count 470 k/uL (150-450); RBC 3.16 m/uL (4.30-5.90); WBC 8.6 k/uL (3.8-10.6)
--- NOTE | 2022-03-14 19:56 | P.PN ---
Subjective Progress Note Date: 03/14/22 Principal diagnosis: Recurrent aspiration pneumonia Patient is a 36 year old male with mental and developmental delay admitted to the hospital with increasing shortness of breath and concerning for extensive left-sided pneumonia likely aspiration etiology. Patient did have EGD and attempted to place a PEG tube placement which was not successful on 03/06/2022, patient is status post laparoscopic PEG tube placement on 03/10/2022 On today's evaluation that is 03/14/2022, patient continues to be afebrile, the patient is breathing comfortably on 2 L nasal cannula, patient seems to have problem with tube feeds with some leakage around the tube per the father at the bedside, no vomiting diarrhea or any other changes reported by the nursing staff Objective - Vital Signs Vital signs: Vital Signs Temp 98.3 F 03/14/22 08:00 Pulse 115 H 03/14/22 11:33 Resp 18 03/14/22 08:00 BP 119/73 03/14/22 08:00 Pulse Ox 97 03/14/22 08:00 FiO2 50 03/06/22 12:00 Intake & Output 03/13/22 03/14/22 03/14/22 18:59 06:59 18:59 Intake Total 30 100 Output Total 2000 300 Balance -1970 -200 Weight 52 kg Intake: Tube Feeding 30 100 Output: Urine 1999 300 Male - External 600 Other: Voiding Method External Catheter External Catheter External Catheter # Bowel Movements 1 - Exam GENERAL DESCRIPTION: Middle-aged male lying in bed in no distress RESPIRATORY SYSTEM: Unlabored breathing , coarse Bilaterally HEART: S1 S2 regular rate and rhythm , ABDOMEN: Soft , no tenderness EXTREMITIES: No edema feet - Labs CBC & Chem 7: 03/14/22 12:43 03/14/22 12:43 Labs: Abnormal Lab Results - Last 24 Hours (Table) 03/13/22 Range/Units 17:01 Iron 24 L (65-175) ug/dL TIBC 178 L (228-460) ug/dL % Saturation 13.39 L (15.00-50.00) Transferrin 127.0 L (204.0-354.0) mg/dL Microbiology - Last 24 Hours (Table) 03/09/22 11:56 Blood Culture - Preliminary Blood No Growth after 96 hours Assessment and Plan (1) Pneumonia Current Visit: Yes Status: Acute Code(s): J18.9 - PNEUMONIA, UNSPECIFIED ORGANISM SNOMED Code(s): 127643575 Plan: 1patient presented to hospital with increasing shortness of breath with evidence of extensive pneumonia on the left lung likely secondary to aspiration in this patient with underlying mental impairment. 2patient did have attempted PEG tube placement via EGD which was not successful now plan for possible open versus laparoscopic feeding tube placement , 3- blood culture negative sputum could not be collected 4 patient has shown clinical improvement as for his fever and white count is concerned which has normalized, patient will continue with the Zosyn while i npatient and monitor clinical course closely Time with Patient: Less than 30
[2022-03-15] MEDS: SODIUM CHLORIDE 0.9% 1,000 ML IV SCH ×2 (05:06→16:42)
[2022-03-15] MEDS: risperiDONE ORAL SOLN 5 MG/5 ML CUP PO SCH (06:11)
[2022-03-15] MEDS: DIVALPROEX SPRINKLE 125 MG CAP.SPRINK PO SCH ×2 (06:12→16:41)
[2022-03-15] MEDS: TOPIRAMATE 15 MG PO SCH ×2 (06:12→16:42)
[2022-03-15] MEDS: PIPERACILLIN-TAZOBACTAM 3.375 GM in SODIUM CHLORIDE 0.9% 100 ML IVPB SCH ×2 (06:58→16:41)
[2022-03-15] MEDS: LORazepam 2 MG/ML INJ IV SCH (06:58)
[2022-03-15] MEDS: ENOXAPARIN 30 MG/0.3 ML SYRINGE SQ SCH (08:03)
[2022-03-15] MEDS: IPRATROPIUM-ALBUTEROL 3 ML NEB INHALATION SCH ×2 (08:51→12:05)
[2022-03-15 10:59] LABS: Anisocytosis Moderate; HCT 30.5 % (39.0-53.0); Hypochromasia Marked; MCH 26.6 pg (25.0-35.0); MCHC 29.4 g/dL (31.0-37.0); MCV 90.7 fL (80.0-100.0); Mean Platelet Volume 6.8; Platelet Count 549 k/uL (150-450); RBC 3.37 m/uL (4.30-5.90); RDW 20.4 % (11.5-15.5)
[2022-03-15 11:14] LABS: ALT 10 U/L (4-49); AST 20 U/L (17-59); African American GFR (CKD) >90 (>60 ml/min/1.73 sqM); Albumin 2.8 g/dL (3.5-5.0); Alkaline Phosphatase 121 U/L (38-126); Anion Gap 9 mmol/L; Blood Urea Nitrogen 10 mg/dL (9-20); Calcium 8.4 mg/dL (8.4-10.2); Carbon Dioxide 25 mmol/L (22-30); Chloride 107 mmol/L (98-107); Glucose 113 mg/dL (74-99); Magnesium 2.1 mg/dL (1.6-2.3); Non-African American GFR(CKD) >90 (>60 ml/min/1.73 sqM); Phosphorus 4.4 mg/dL (2.5-4.5); Potassium 3.8 mmol/L (3.5-5.1); Sodium 141 mmol/L (137-145); Total Bilirubin 0.2 mg/dL (0.2-1.3); Total Protein 6.6 g/dL (6.3-8.2)
--- NOTE | 2022-03-15 11:32 | P.PN ---
Progress Note - Text Progress Note Date: 03/15/22 PEG tube remains stable. Patient continue tube feeds. PEG tube site is clean.
[2022-03-15] MEDS: LACTATED RINGERS 1,000 ML IV SCH (11:48)
--- NOTE | 2022-03-15 11:56 | P.PN ---
Subjective Progress Note Date: 03/15/22 Tolu Sánchez, is a 36-year-old male who presented to [facility] emergency room due to increased somnolence and shortness of breath. He was evaluated in the emergency room vital examination on presentation revealed a temperature of 97.3 pulse 101 respiration 22 blood pressure 115/68 pulse ox 98% on room air Laboratory data revealed a white blood count of 5.2 hemoglobin 11.2 platelet co unt 205 sodium 139 potassium 3.2 chloride 100 CO2 26 BUN 20 creatinine 0.48 Testing in the emergency room revealed chest x-ray done in the emergency room revealed large infiltrate and/or opacification with air bronchogram within the left lung, EKG done in the emergency room revealed sinus tachycardia with right ventricular hypertrophy. Patient was admitted to medical floor for further evaluation and treatment, he was started on IV antibiotics, pulmonary consultation was requested. On 02/28/2022 patient is resting in bed currently maintained on partial nonrebreather. Current vitals temp 97.6, pulse rate 72, respiratory rate 18 blood pressure 97/64 patient stating 98% on partial rebreather at 15 L. Patient remains on IV vancomycin. Infectious disease services have been consulted. Currently blood cell count 6.6. On 03/01/2022 patient remains on partial nonrebreather. Infectious disease and pulmonary services are following this session was held with family per infectious PEG tube placement. Vitals temp 97.4, heart rate 78, respiratory rate 16, blood pressure 100/60 patient satting 98% on partial rebreather 15 L On 03/02/2022 patient was seen and examined on the medical floor he is alert nonverbal in no apparent distress, nurse denies any events or any new complaints, patient is maintained on partial nonrebreather mask on 12 L his vital exam reveals a temperature of 97.4 pulse 67 respiration 18 blood pressure 124/68 pulse ox 96% laboratory data reveals a white blood count of 5.7 hemoglobin 9.8 platelet count 139 BUN is 8 creatinine 0.42 he remains on IV antibiotic Zosyn, pulmonary and infectious disease are following, repeat chest x-ray is ordered for tomorrow On 03/03/2022 patient was seen and examined on the medical floor he is alert, nonverbal in no apparent distress vital examination reveals a temperature of 98 pulse 73 respiration 16 blood pressure 108/70 pulse ox 93% on Ventimask with FiO2 of 50% laboratory data reveals a white blood count of 5.1 hemoglobin 10.3 platelet count 147 BUN 6 creatinine 0.38 On 03/04/2022 patient is resting comfortably in bed. Patient remains on Ventimask. Current vital signs temp 9070, pulse rate 87, respiratory rate 20, blood pressure 140/76. Patient remains on IV Zosyn pulmonary and infectious disease services are following On 03/05/2022 patient was seen and examined on the medical floor he is alert nonverbal in no apparent distress he is still maintained on high flow oxygen no new episodes of fever, temperature is 90.7 pulse 100 respiration 20 blood pressure 159/78 pulse ox 97% on Ventimask white blood count is 8.4 hemoglobin 10.6 platelet count 186 chest x-ray reveals bilateral infiltrates On 03/06/2022 patient was seen and examined on the medical floor he is alert nonverbal in no apparent distress, he is still maintained on oxygen via Ventimask, chest x-ray with minimal improvement, patient is scheduled today for PEG tube placement, will follow closely. 03/07/2022 patient is resting comfortably in bed. Patient is now on 2 L nasal cannula satting 96%. Per surgical services attempt was made for PEG tube placement but was unable to place peg tube due to anatomy. Per surgical services will further discussed with parents in regards to next options for PEG tube placement. Patient remains on IV Zosyn and ID pulmonary and surgical services are following. On 03/08/2022 patient was seen and examined on the medical floor he is alert nonverbal in no apparent distress, temperature is elevated today at 102 pulse 109 respiration 18 blood pressure 128/75 pulse ox 95% on 3 L nasal cannula, i te blood count up to 16.4 from 8.4 yesterday hemoglobin 11 platelet count 313, at this time will add IV Tylenol, increase IV fluid to 125 mL/h, PEG tube was attempted and failed here, family is deciding whether they want patient transferred to [facility] for possible PEG tube placement On 03/09/2022 patient is alert but nonverbal resting in bed. remains on IV Zosyn. Patient having elevated temperature and white count discussed with nursing staff to make infectious disease aware for any potential change in antibiotic. Current vital signs temp 99.4, heart rate 105, blood pressure 101 /55 with a pulse ox of 99% on 2 L. Awaiting family decision in regards to possible transfer for PEG tube placement. On 03/10/2022 patient was seen and examined on the medical floor he is alert nonverbal in no apparent distress father is at the bedside and case was discussed in details with him. At this time family do not want patient to be transferred to any other Hospital. They want to proceed here with surgery for PEG tube for feeding. They understand that patient is a very high risk, and they prefer to continue with care here. On 03/11/2022 patient was seen and examined on the medical floor he is alert nonverbal in no apparent distress, vital exam reveals a temperature of 98 pulse 88 respiration 20 blood pressure 108/72 pulse ox 97% on 2 L Nasal cannula Patient underwent laparoscopic placement of jejunostomy feeding tube yesterday. On 03/12/2022 patient is resting comfortably in bed status post J-tube placement. White blood cell has normalized to 6.8. Plans to restart tube feeding today per dietitian. Patient remains on IV Zosyn current vitals temp 97.9, heart rate 97, respiratory rate 20, blood pressure 141/70 pulse is of 95% on room air. On 03/13/2022 patient was seen and examined on the medical floor he is alert nonverbal in no apparent distress vital examination reveals a temperature of 98.1 pulse 101 respiration 18 blood pressure 146/86 pulse ox 94% on 2 L nasal cannula, laboratory data reveals a white blood count of 8.0 hemoglobin 8.6 platelet count 447 sodium 139 potassium 3.3 chloride 100 CO2 26 BUN less than 2 creatinine 0.43 at this time continue with current medication Will replace potassium will check iron level and magnesium level will follow closely On 03/14/2022 patient is resting comfortably in bed per nursing staff patient has been tolerating feedings through G-tube. Family at bedside and at this time is requesting hospice consult due to multiple episodes in declining health status. Spoke with nurse consult for hospice will be placed. Current vital signs temp 98.3, heart rate 108, blood pressure 119/73 with a pulse ox of 97% on 2 L. Patient remains on IV Zosyn On 03/15/2022 patient was seen and examined on the medical floor he is alert likely agitated in no apparent distress, parents are requesting increase in Ativan dose to 1.5 mg 3 times a day, will proceed with increase, parents have spoken to hospice and arrangements are being made for possible discharge to the hospice house in [place] on Thursday. Clinically patient is stable, labs are still pending Will monitor later on today. Objective - Vital Signs Vital signs: Vital Signs Temp 99.9 F H 03/15/22 11:00 Pulse 114 H 03/15/22 11:00 Resp 18 03/15/22 11:00 BP 108/71 03/15/22 11:00 Pulse Ox 93 L 03/15/22 11:00 FiO2 50 03/06/22 12:00 Intake & Output 03/14/22 03/15/22 03/15/22 18:59 06:59 18:59 Intake Total 330 360 120 Output Total 500 650 Balance -170 -290 120 Weight 52 kg 53 kg Intake: Tube Feeding 330 360 120 Output: Urine 500 650 Other: Voiding Method External Catheter External Catheter External Catheter # Voids 1 3 # Bowel Movements 1 0 1 - Exam In general patient is somnolent responsive only to repeated stimuli HEENT head normocephalic and atraumatic Neck is supple no JVD no goiter no lymphadenopathy no carotid bruit Chest examination reveals a crackles in both lung galicia no wheezing Cardiac exam reveals regular heart sounds S1 and S2 no gallops no murmurs Abdomen is soft nontender no organomegaly with normal bowel sounds Extremity exam reveals no edema no cyanosis or clubbing Neurological examination reveals no gross focal deficits - Labs CBC & Chem 7: 03/14/22 12:43 03/15/22 10:34 Labs: Abnormal Lab Results - Last 24 Hours (Table) 03/14/22 03/14/22 03/15/22 Range/Units 12:43 12:43 10:34 RBC 3.16 L (4.30-5.90) m/uL Hgb 8.6 L (13.0-17.5) gm/dL Hct 28.5 L (39.0-53.0) % MCHC 30.1 L (31.0-37.0) g/dL RDW 20.0 H (11.5-15.5) % Plt Count 470 H (150-450) k/uL BUN 4 L (9-20) mg/dL Creatinine 0.34 L 0.40 L (0.66-1.25) mg/dL Glucose 112 H 113 H (74-99) mg/dL Calcium 8.3 L (8.4-10.2) mg/dL Albumin 2.8 L (3.5-5.0) g/dL Microbiology - Last 24 Hours (Table) 03/09/22 11:56 Blood Culture - Preliminary Blood No Growth after 120 hours Assessment and Plan Plan: Acute pneumonia possibly related to aspiration pneumonia Acute hypoxic respiratory failure Previous episodes of aspiration pneumonia including recently in November 2021 Underlying history of developmental delay with severe physical and mental debility patient requires 24-hour care Underlying history of seizure disorder 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 boss 03/14/2022 family requesting hospice consult CODE STATUS is DO NOT RESUSCITATE Prognosis is guarded
[2022-03-15 14:09] LABS: Eosinophils # (M) 0.15 k/uL (0-0.7); Lymphocytes # (M) 1.41 k/uL (1.0-4.8); Metamyelocytes # (M) 0.15 k/uL (0); Metamyelocytes % 2 %; Monocytes # (M) 0.89 k/uL (0-1.0); Myelocytes # (M) 0.07 k/uL (0); Myelocytes % 1 %; Neutrophils # (M) 4.81 k/uL (1.3-7.7); Neutrophils % (M) 65 %; Nucleated Red Blood Cells 1 /100 WBC (0-0); Total Cells Counted 200; WBC 7.4 k/uL (3.8-10.6)
[2022-03-15 14:10] LABS: Mixed Population RBC Present; Poikilocytosis (M) Present; Polychromasia Present; Toxic Granulation Present
[2022-03-15] MEDS: LORazepam 2 MG/ML INJ IV PRN (16:41)
--- NOTE | 2022-03-15 20:34 | P.PN ---
Subjective Progress Note Date: 03/15/22 Principal diagnosis: Recurrent aspiration pneumonia Patient is a 36 year old male with mental and developmental delay admitted to the hospital with increasing shortness of breath and concerning for extensive left-sided pneumonia likely aspiration etiology. Patient did have EGD and attempted to place a PEG tube placement which was not successful on 03/06/2022, patient is status post laparoscopic PEG tube placement on 03/10/2022 On today's evaluation that is 03/15/2022, patient did have a low-grade fever of 99.9F, the patient is breathing comfortably on room air, patient is tolerating his tube feeds no vomiting no diarrhea reported by the nursing staff Objective - Vital Signs Vital signs: Vital Signs Temp 99.9 F H 03/15/22 11:00 Pulse 114 H 03/15/22 11:00 Resp 18 03/15/22 11:00 BP 108/71 03/15/22 11:00 Pulse Ox 93 L 03/15/22 11:00 FiO2 50 03/06/22 12:00 Intake & Output 03/14/22 03/15/22 03/15/22 18:59 06:59 18:59 Intake Total 330 360 240 Output Total 500 650 Balance -170 -290 240 Weight 52 kg 53 kg Intake: Tube Feeding 330 360 240 Output: Urine 500 650 Other: Voiding Method External Catheter External Catheter External Catheter # Voids 1 3 # Bowel Movements 1 0 1 - Exam GENERAL DESCRIPTION: Middle-aged male lying in bed in no distress RESPIRATORY SYSTEM: Unlabored breathing , coarse Bilaterally HEART: S1 S2 regular rate and rhythm , ABDOMEN: Soft , no tenderness EXTREMITIES: No edema feet - Labs CBC & Chem 7: 03/15/22 10:34 03/15/22 10:34 Labs: Abnormal Lab Results - Last 24 Hours (Table) 03/14/22 03/14/22 03/15/22 Range/Units 12:43 12:43 10:34 RBC 3.16 L (4.30-5.90) m/uL Hgb 8.6 L (13.0-17.5) gm/dL Hct 28.5 L (39.0-53.0) % MCHC 30.1 L (31.0-37.0) g/dL RDW 20.0 H (11.5-15.5) % Plt Count 470 H (150-450) k/uL BUN 4 L (9-20) mg/dL Creatinine 0.34 L 0.40 L (0.66-1.25) mg/dL Glucose 112 H 113 H (74-99) mg/dL Calcium 8.3 L (8.4-10.2) mg/dL Albumin 2.8 L (3.5-5.0) g/dL Microbiology - Last 24 Hours (Table) 03/09/22 11:56 Blood Culture - Preliminary Blood No Growth after 120 hours Assessment and Plan (1) Pneumonia Current Visit: Yes Status: Acute Code(s): J18.9 - PNEUMONIA, UNSPECIFIED ORGANISM SNOMED Code(s): 178829657 Plan: 1patient presented to hospital with increasing shortness of breath with evidence of extensive pneumonia on the left lung likely secondary to aspiration in this patient with underlying mental impairment. 2patient did have attempted PEG tube placement via EGD which was not successful now plan for possible open versus laparoscopic feeding tube placement , 3- blood culture negative sputum could not be collected 4 patient fever resolved and white count has normalized, patient will continue with the Zosyn while inpatient and monitor clinical course closely Time with Patient: Less than 30
[2022-03-16] MEDS: PIPERACILLIN-TAZOBACTAM 3.375 GM in SODIUM CHLORIDE 0.9% 100 ML IVPB SCH ×4 (00:04→23:18)
[2022-03-16] MEDS: LORazepam 2 MG/ML INJ IV PRN ×3 (02:40→20:59)
[2022-03-16] MEDS: TOPIRAMATE 15 MG PO SCH ×2 (05:39→15:20)
[2022-03-16] MEDS: DIVALPROEX SPRINKLE 125 MG CAP.SPRINK PO SCH ×2 (05:39→15:20)
[2022-03-16] MEDS: risperiDONE ORAL SOLN 5 MG/5 ML CUP PO SCH (06:14)
[2022-03-16] MEDS: ENOXAPARIN 30 MG/0.3 ML SYRINGE SQ SCH (09:12)
[2022-03-16 09:18] LABS: ALT 11 U/L (4-49); AST 21 U/L (17-59); African American GFR (CKD) >90 (>60 ml/min/1.73 sqM); Alkaline Phosphatase 116 U/L (38-126); Anion Gap 13 mmol/L; Blood Urea Nitrogen 9 mg/dL (9-20); Calcium 8.4 mg/dL (8.4-10.2); Carbon Dioxide 19 mmol/L (22-30); Chloride 107 mmol/L (98-107); Glucose 108 mg/dL (74-99); Non-African American GFR(CKD) >90 (>60 ml/min/1.73 sqM); Phosphorus 4.6 mg/dL (2.5-4.5); Potassium 4.2 mmol/L (3.5-5.1); Sodium 139 mmol/L (137-145); Total Bilirubin 0.1 mg/dL (0.2-1.3); Total Protein 7.1 g/dL (6.3-8.2)
[2022-03-16 09:53] LABS: Anisocytosis Moderate; Basophils # (A) 0.1 k/uL (0-0.2); Basophils % (A) 1 %; Eosinophils # (A) 0.2 k/uL (0-0.7); Eosinophils % (A) 2 %; HCT 30.5 % (39.0-53.0); Hypochromasia Marked; Lymphocytes # (A) 1.8 k/uL (1.0-4.8); Lymphocytes % (A) 20 %; MCH 26.8 pg (25.0-35.0); MCHC 29.3 g/dL (31.0-37.0); MCV 91.5 fL (80.0-100.0); Mean Platelet Volume 7.2; Monocytes # (A) 0.9 k/uL (0-1.0); Monocytes % (A) 10 %; Neutrophils # (A) 5.9 k/uL (1.3-7.7); Neutrophils % (A) 66 %; Platelet Count 559 k/uL (150-450); RBC 3.34 m/uL (4.30-5.90); WBC 8.9 k/uL (3.8-10.6)
--- NOTE | 2022-03-16 10:03 | P.PN ---
Subjective Progress Note Date: 03/16/22 Tolu Sánchez, is a 36-year-old male who presented to [facility] emergency room due to increased somnolence and shortness of breath. He was evaluated in the emergency room vital examination on presentation revealed a temperature of 97.3 pulse 101 respiration 22 blood pressure 115/68 pulse ox 98% on room air Laboratory data revealed a white blood count of 5.2 hemoglobin 11.2 platelet co unt 205 sodium 139 potassium 3.2 chloride 100 CO2 26 BUN 20 creatinine 0.48 Testing in the emergency room revealed chest x-ray done in the emergency room revealed large infiltrate and/or opacification with air bronchogram within the left lung, EKG done in the emergency room revealed sinus tachycardia with right ventricular hypertrophy. Patient was admitted to medical floor for further evaluation and treatment, he was started on IV antibiotics, pulmonary consultation was requested. On 02/28/2022 patient is resting in bed currently maintained on partial nonrebreather. Current vitals temp 97.6, pulse rate 72, respiratory rate 18 blood pressure 97/64 patient stating 98% on partial rebreather at 15 L. Patient remains on IV vancomycin. Infectious disease services have been consulted. Currently blood cell count 6.6. On 03/01/2022 patient remains on partial nonrebreather. Infectious disease and pulmonary services are following this session was held with family per infectious PEG tube placement. Vitals temp 97.4, heart rate 78, respiratory rate 16, blood pressure 100/60 patient satting 98% on partial rebreather 15 L On 03/02/2022 patient was seen and examined on the medical floor he is alert nonverbal in no apparent distress, nurse denies any events or any new complaints, patient is maintained on partial nonrebreather mask on 12 L his vital exam reveals a temperature of 97.4 pulse 67 respiration 18 blood pressure 124/68 pulse ox 96% laboratory data reveals a white blood count of 5.7 hemoglobin 9.8 platelet count 139 BUN is 8 creatinine 0.42 he remains on IV antibiotic Zosyn, pulmonary and infectious disease are following, repeat chest x-ray is ordered for tomorrow On 03/03/2022 patient was seen and examined on the medical floor he is alert, nonverbal in no apparent distress vital examination reveals a temperature of 98 pulse 73 respiration 16 blood pressure 108/70 pulse ox 93% on Ventimask with FiO2 of 50% laboratory data reveals a white blood count of 5.1 hemoglobin 10.3 platelet count 147 BUN 6 creatinine 0.38 On 03/04/2022 patient is resting comfortably in bed. Patient remains on Ventimask. Current vital signs temp 9070, pulse rate 87, respiratory rate 20, blood pressure 140/76. Patient remains on IV Zosyn pulmonary and infectious disease services are following On 03/05/2022 patient was seen and examined on the medical floor he is alert nonverbal in no apparent distress he is still maintained on high flow oxygen no new episodes of fever, temperature is 90.7 pulse 100 respiration 20 blood pressure 159/78 pulse ox 97% on Ventimask white blood count is 8.4 hemoglobin 10.6 platelet count 186 chest x-ray reveals bilateral infiltrates On 03/06/2022 patient was seen and examined on the medical floor he is alert nonverbal in no apparent distress, he is still maintained on oxygen via Ventimask, chest x-ray with minimal improvement, patient is scheduled today for PEG tube placement, will follow closely. 03/07/2022 patient is resting comfortably in bed. Patient is now on 2 L nasal cannula satting 96%. Per surgical services attempt was made for PEG tube placement but was unable to place peg tube due to anatomy. Per surgical services will further discussed with parents in regards to next options for PEG tube placement. Patient remains on IV Zosyn and ID pulmonary and surgical services are following. On 03/08/2022 patient was seen and examined on the medical floor he is alert nonverbal in no apparent distress, temperature is elevated today at 102 pulse 109 respiration 18 blood pressure 128/75 pulse ox 95% on 3 L nasal cannula, i te blood count up to 16.4 from 8.4 yesterday hemoglobin 11 platelet count 313, at this time will add IV Tylenol, increase IV fluid to 125 mL/h, PEG tube was attempted and failed here, family is deciding whether they want patient transferred to [facility] for possible PEG tube placement On 03/09/2022 patient is alert but nonverbal resting in bed. remains on IV Zosyn. Patient having elevated temperature and white count discussed with nursing staff to make infectious disease aware for any potential change in antibiotic. Current vital signs temp 99.4, heart rate 105, blood pressure 101 /55 with a pulse ox of 99% on 2 L. Awaiting family decision in regards to possible transfer for PEG tube placement. On 03/10/2022 patient was seen and examined on the medical floor he is alert nonverbal in no apparent distress father is at the bedside and case was discussed in details with him. At this time family do not want patient to be transferred to any other Hospital. They want to proceed here with surgery for PEG tube for feeding. They understand that patient is a very high risk, and they prefer to continue with care here. On 03/11/2022 patient was seen and examined on the medical floor he is alert nonverbal in no apparent distress, vital exam reveals a temperature of 98 pulse 88 respiration 20 blood pressure 108/72 pulse ox 97% on 2 L Nasal cannula Patient underwent laparoscopic placement of jejunostomy feeding tube yesterday. On 03/12/2022 patient is resting comfortably in bed status post J-tube placement. White blood cell has normalized to 6.8. Plans to restart tube feeding today per dietitian. Patient remains on IV Zosyn current vitals temp 97.9, heart rate 97, respiratory rate 20, blood pressure 141/70 pulse is of 95% on room air. On 03/13/2022 patient was seen and examined on the medical floor he is alert nonverbal in no apparent distress vital examination reveals a temperature of 98.1 pulse 101 respiration 18 blood pressure 146/86 pulse ox 94% on 2 L nasal cannula, laboratory data reveals a white blood count of 8.0 hemoglobin 8.6 platelet count 447 sodium 139 potassium 3.3 chloride 100 CO2 26 BUN less than 2 creatinine 0.43 at this time continue with current medication Will replace potassium will check iron level and magnesium level will follow closely On 03/14/2022 patient is resting comfortably in bed per nursing staff patient has been tolerating feedings through G-tube. Family at bedside and at this time is requesting hospice consult due to multiple episodes in declining health status. Spoke with nurse consult for hospice will be placed. Current vital signs temp 98.3, heart rate 108, blood pressure 119/73 with a pulse ox of 97% on 2 L. Patient remains on IV Zosyn On 03/15/2022 patient was seen and examined on the medical floor he is alert likely agitated in no apparent distress, parents are requesting increase in Ativan dose to 1.5 mg 3 times a day, will proceed with increase, parents have spoken to hospice and arrangements are being made for possible discharge to the hospice house in [place] on Thursday. Clinically patient is stable, labs are still pending Will monitor later on today. On 03/16/2022 patient is resting comfortably in bed father at bedside. Plans to be discharged tomorrow to [facility]. Patient has been tolerating tube feeds. Temp 98.9, heart rate 107, blood pressure 138/82 with a pulse ox of 95% on room air Objective - Vital Signs Vital signs: Vital Signs Temp 98.9 F 03/16/22 04:00 Pulse 107 H 03/16/22 04:00 Resp 18 03/16/22 04:00 BP 138/82 03/16/22 04:00 Pulse Ox 95 03/16/22 04:00 FiO2 50 03/06/22 12:00 Intake & Output 03/15/22 03/16/22 03/16/22 18:59 06:59 18:59 Intake Total 360 450 Balance 360 450 Weight 53 kg Intake: Tube Feeding 360 450 Other: Voiding Method External Catheter External Catheter # Voids 2 # Bowel Movements 1 - Exam In general patient is somnolent responsive only to repeated stimuli HEENT head normocephalic and atraumatic Neck is supple no JVD no goiter no lymphadenopathy no carotid bruit Chest examination reveals a crackles in both lung galicia no wheezing Cardiac exam reveals regular heart sounds S1 and S2 no gallops no murmurs Abdomen is soft nontender no organomegaly with normal bowel sounds Extremity exam reveals no edema no cyanosis or clubbing Neurological examination reveals no gross focal deficits - Labs CBC & Chem 7: 03/16/22 08:25 03/16/22 08:25 Labs: Abnormal Lab Results - Last 24 Hours (Table) 03/15/22 03/15/22 03/16/22 Range/Units 10:34 10:34 08:25 RBC 3.37 L (4.30-5.90) m/uL Hgb 9.0 L (13.0-17.5) gm/dL Hct 30.5 L (39.0-53.0) % MCHC 29.4 L (31.0-37.0) g/dL RDW 20.4 H (11.5-15.5) % Plt Count 549 H (150-450) k/uL Metamyelocytes # (Man) 0.15 H (0) k/uL Myelocytes # (Manual) 0.07 H (0) k/uL Nucleated RBCs 1 H (0-0) /100 WBC Carbon Dioxide 19 L (22-30) mmol/L Creatinine 0.40 L 0.37 L (0.66-1.25) mg/dL Glucose 113 H 108 H (74-99) mg/dL Phosphorus 4.6 H (2.5-4.5) mg/dL Total Bilirubin 0.1 L (0.2-1.3) mg/dL Albumin 2.8 L 3.0 L (3.5-5.0) g/dL 03/16/22 Range/Units 08:25 RBC 3.34 L (4.30-5.90) m/uL Hgb 9.0 L (13.0-17.5) gm/dL Hct 30.5 L (39.0-53.0) % MCHC 29.3 L (31.0-37.0) g/dL RDW 20.0 H (11.5-15.5) % Plt Count 559 H (150-450) k/uL Metamyelocytes # (Man) (0) k/uL Myelocytes # (Manual) (0) k/uL Nucleated RBCs (0-0) /100 WBC Carbon Dioxide (22-30) mmol/L Creatinine (0.66-1.25) mg/dL Glucose (74-99) mg/dL Phosphorus (2.5-4.5) mg/dL Total Bilirubin (0.2-1.3) mg/dL Albumin (3.5-5.0) g/dL Microbiology - Last 24 Hours (Table) 03/09/22 11:56 Blood Culture - Final Blood No Growth after 144 hours Assessment and Plan Plan: Acute pneumonia possibly related to aspiration pneumonia Acute hypoxic respiratory failure Previous episodes of aspiration pneumonia including recently in November 2021 Underlying history of developmental delay with severe physical and mental debility patient requires 24-hour care Underlying history of seizure disorder 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 boss 03/14/2022 family requesting hospice consult Tentative plans for discharge on 03/17/2022 to hospice house in [place] CODE STATUS is DO NOT RESUSCITATE Prognosis is guarded
--- NOTE | 2022-03-16 12:02 | P.PN ---
Progress Note - Text Progress Note Date: 03/16/22 Patient's PEG tube is clean. He'll continue tube feeds.
[2022-03-16] MEDS: SODIUM CHLORIDE 0.9% 1,000 ML IV SCH (17:19)
[2022-03-17 05:44] VITALS: PULSE 111
[2022-03-17] MEDS: TOPIRAMATE 15 MG PO SCH (05:51)
[2022-03-17] MEDS: DIVALPROEX SPRINKLE 125 MG CAP.SPRINK PO SCH (05:51)
[2022-03-17] MEDS: risperiDONE ORAL SOLN 5 MG/5 ML CUP PO SCH (05:56)
[2022-03-17 08:37] LABS: African American GFR (CKD) >90 (>60 ml/min/1.73 sqM); Anion Gap 11 mmol/L; Blood Urea Nitrogen 10 mg/dL (9-20); Calcium 8.8 mg/dL (8.4-10.2); Carbon Dioxide 20 mmol/L (22-30); Chloride 103 mmol/L (98-107); Glucose 134 mg/dL (74-99); Magnesium 1.9 mg/dL (1.6-2.3); Non-African American GFR(CKD) >90 (>60 ml/min/1.73 sqM); Phosphorus 4.4 mg/dL (2.5-4.5); Potassium 4.7 mmol/L (3.5-5.1); Sodium 134 mmol/L (137-145)
[2022-03-17] MEDS: PIPERACILLIN-TAZOBACTAM 3.375 GM in SODIUM CHLORIDE 0.9% 100 ML IVPB SCH (08:37)
[2022-03-17] MEDS: ENOXAPARIN 30 MG/0.3 ML SYRINGE SQ SCH (08:37)
[2022-03-17] MEDS: LORazepam 2 MG/ML INJ IV PRN (08:37)
[2022-03-17 10:58] VITALS: BP 142/73; RESP 18; TEMP 99
[2022-03-17 12:34] VITALS: BMI 27.1
--- NOTE | 2022-03-17 13:21 | P.DS ---
Providers Date of admission: 02/27/22 09:55 Expected date of discharge: 03/17/22 Attending physician: Iveth Ramirez Consults: 02/27/22 09:56 Consult Physician Urgent Consulting Provider: Marek Morris Consult Reason/Comments: hypoxic resp failure, CAP Do you want consulting provider notified?: Yes 02/28/22 10:17 Consult Physician Routine Consulting Provider: Jason Dumont Consult Reason/Comments: Recurrent pneumonia Do you want consulting provider notified?: Yes 03/04/22 12:31 Consult Physician Routine Consulting Provider: Aldo Onofre Consult Reason/Comments: PEG tube placement for recurrent aspiration Do you want consulting provider notified?: Yes Primary care physician: Iveth Ramirez [facility] Course: Diagnosis on discharge: Acute pneumonia possibly related to aspiration pneumonia Acute hypoxic respiratory failure Previous episodes of aspiration pneumonia including recently in November 2021, patient underwent jejunostomy feeding tube placement during this admission Underlying history of developmental delay with severe physical and mental debility patient requires 24-hour care Underlying history of seizure disorder Remote history of 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 He was evaluated in the emergency room vital examination on presentation revealed a temperature of 97.3 pulse 101 respiration 22 blood pressure 115/68 pulse ox 98% on room air Laboratory data revealed a white blood count of 5.2 hemoglobin 11.2 platelet count 205 sodium 139 potassium 3.2 chloride 100 CO2 26 BUN 20 creatinine 0.48 Testing in the emergency room revealed chest x-ray done in the emergency room revealed large infiltrate and/or opacification with air bronchogram within the left lung, EKG done in the emergency room revealed sinus tachycardia with right ventricular hypertrophy. Patient was admitted to medical floor for further evaluation and treatment, he was started on IV antibiotics, pulmonary consultation was requested. On 02/28/2022 patient is resting in bed currently maintained on partial nonrebreather. Current vitals temp 97.6, pulse rate 72, respiratory rate 18 blood pressure 97/64 patient stating 98% on partial rebreather at 15 L. Patient remains on IV vancomycin. Infectious disease services have been consulted. Currently blood cell count 6.6. On 03/01/2022 patient remains on partial nonrebreather. Infectious disease and pulmonary services are following this session was held with family per infectious PEG tube placement. Vitals temp 97.4, heart rate 78, respiratory rate 16, blood pressure 100/60 patient satting 98% on partial rebreather 15 L On 03/02/2022 patient was seen and examined on the medical floor he is alert nonverbal in no apparent distress, nurse denies any events or any new complaints, patient is maintained on partial nonrebreather mask on 12 L his vital exam reveals a temperature of 97.4 pulse 67 respiration 18 blood pressure 124/68 pulse ox 96% laboratory data reveals a white blood count of 5.7 hemoglobin 9.8 platelet count 139 BUN is 8 creatinine 0.42 he remains on IV antibiotic Zosyn, pulmonary and infectious disease are following, repeat chest x-ray is ordered for tomorrow On 03/03/2022 patient was seen and examined on the medical floor he is alert, nonverbal in no apparent distress vital examination reveals a temperature of 98 pulse 73 respiration 16 blood pressure 108/70 pulse ox 93% on Ventimask with FiO2 of 50% laboratory data reveals a white blood count of 5.1 hemoglobin 10.3 platelet count 147 BUN 6 creatinine 0.38 On 03/04/2022 patient is resting comfortably in bed. Patient remains on Ventimask. Current vital signs temp 9070, pulse rate 87, respiratory rate 20, blood pressure 140/76. Patient remains on IV Zosyn pulmonary and infectious disease services are following On 03/05/2022 patient was seen and examined on the medical floor he is alert nonverbal in no apparent distress he is still maintained on high flow oxygen no new episodes of fever, temperature is 90.7 pulse 100 respiration 20 blood pressure 159/78 pulse ox 97% on Ventimask white blood count is 8.4 hemoglobin 10.6 platelet count 186 chest x-ray reveals bilateral infiltrates On 03/06/2022 patient was seen and examined on the medical floor he is alert nonverbal in no apparent distress, he is still maintained on oxygen via Ventimask, chest x-ray with minimal improvement, patient is scheduled today for PEG tube placement, will follow closely. 03/07/2022 patient is resting comfortably in bed. Patient is now on 2 L nasal cannula satting 96%. Per surgical services attempt was made for PEG tube placement but was unable to place peg tube due to anatomy. Per surgical services will further discussed with parents in regards to next options for PEG tube placement. Patient remains on IV Zosyn and ID pulmonary and surgical services are following. On 03/08/2022 patient was seen and examined on the medical floor he is alert nonverbal in no apparent distress, temperature is elevated today at 102 pulse 109 respiration 18 blood pressure 128/75 pulse ox 95% on 3 L nasal cannula, white blood count up to 16.4 from 8.4 yesterday hemoglobin 11 platelet count 313, at this time will add IV Tylenol, increase IV fluid to 125 mL/h, PEG tube was attempted and failed here, family is deciding whether they want patient transferred to [facility] for possible PEG tube placement On 03/09/2022 patient is alert but nonverbal resting in bed. remains on IV Zosyn. Patient having elevated temperature and white count discussed with nursing staff to make infectious disease aware for any potential change in antibiotic. Current vital signs temp 99.4, heart rate 105, blood pressure 101/55 with a pulse ox of 99% on 2 L. Awaiting family decision in regards to possible transfer for PEG tube placement. On 03/10/2022 patient was seen and examined on the medical floor he is alert nonverbal in no apparent distress father is at the bedside and case was discus sed in details with him. At this time family do not want patient to be transferred to any other Hospital. They want to proceed here with surgery for PEG tube for feeding. They understand that patient is a very high risk, and they prefer to continue with care here. On 03/11/2022 patient was seen and examined on the medical floor he is alert nonverbal in no apparent distress, vital exam reveals a temperature of 98 pulse 88 respiration 20 blood pressure 108/72 pulse ox 97% on 2 L Nasal cannula Patient underwent laparoscopic placement of jejunostomy feeding tube yesterday. On 03/12/2022 patient is resting comfortably in bed status post J-tube placement. White blood cell has normalized to 6.8. Plans to restart tube feeding today per dietitian. Patient remains on IV Zosyn current vitals temp 97.9, heart rate 97, respiratory rate 20, blood pressure 141/70 pulse is of 95% on room air. On 03/13/2022 patient was seen and examined on the medical floor he is alert nonverbal in no apparent distress vital examination reveals a temperature of 98.1 pulse 101 respiration 18 blood pressure 146/86 pulse ox 94% on 2 L nasal cannula, laboratory data reveals a white blood count of 8.0 hemoglobin 8.6 platelet count 447 sodium 139 potassium 3.3 chloride 100 CO2 26 BUN less than 2 creatinine 0.43 at this time continue with current medication Will replace potassium will check iron level and magnesium level will follow closely On 03/14/2022 patient is resting comfortably in bed per nursing staff patient has been tolerating feedings through G-tube. Family at bedside and at this time is requesting hospice consult due to multiple episodes in declining health status. Spoke with nurse consult for hospice will be placed. Current vital signs temp 98.3, heart rate 108, blood pressure 119/73 with a pulse ox of 97% on 2 L. Patient remains on IV Zosyn On 03/15/2022 patient was seen and examined on the medical floor he is alert likely agitated in no apparent distress, parents are requesting increase in Ativan dose to 1.5 mg 3 times a day, will proceed with increase, parents have spoken to hospice and arrangements are being made for possible discharge to the [facility] in [place] on Thursday. Clinically patient is stable, labs are still pending Will monitor later on today. On 03/16/2022 patient is resting comfortably in bed father at bedside. Plans to be discharged tomorrow to [facility]. Patient has been tolerating tube feeds. Temp 98.9, heart rate 107, blood pressure 138/82 with a pulse ox of 95% on room air On 03/17/2022 patient was seen and examined on the medical floor he is alert in no apparent distress, vital exam reveals a temperature of 98.1 pulse 111 respiration 16 and blood pressure 130/61 pulse ox 96% on room air white blood count is 8.9 hemoglobin 9.0 platelet count 559. Patient was started on hospice [place] to discharge to [facility] house today Patient Condition at Discharge: Serious Plan - Discharge Summary Discharge Rx Participant: No New Discharge Prescriptions: New Ibuprofen Oral Susp [Motrin Oral Susp] 400 mg PO Q6HR PRN ml PRN Reason: Mild Pain Or Fever > 100.5 Acetaminophen Oral Susp (Peds) [Tylenol Oral Susp For Peds (Grape)] 650 mg PO Q6HR PRN ml PRN Reason: Mild Pain Or Fever > 100.5 Continue Divalproex Sprinkle [Depakote Sprinkle] 750 mg PO BID@0600,1630 Topiramate [Topamax] 30 mg PO BID@0600,1630 LORazepam [Ativan] 1.5 mg PO TID@0600,1000,1630 risperiDONE [RisperDAL] 0.25 mg PO DAILY@0600 guaiFENesin-DM 100-10MG/5ML [Robitussin DM] 10 ml PO Q4H PRN PRN Reason: Cough diphenhydrAMINE [Benadryl] 25 mg PO DIRECTED PRN PRN Reason: Allergy Symptoms diphenhydrAMINE ELIXIR [Benadryl Elixir] 25 mg PO Q6H PRN PRN Reason: Allergy Symptoms Magnesium Hydroxide [Milk of Magnesia] 2,400 mg PO DAILY PRN PRN Reason: Constipation Cholecalciferol [Vitamin D3 (25 Mcg = 1000 Iu)] 25 mcg PO DAILY@0600 Discontinued Acetaminophen Tab [Tylenol] 1,000 mg PO Q6H PRN PRN Reason: Fever And/ Or Pain Ibuprofen [Motrin Ib] 200 mg PO Q6H PRN PRN Reason: Fever And/ Or Pain Ferrous Sulfate [Feosol] 325 mg PO DAILY@1630 Discharge Medication List Divalproex Sprinkle [Depakote Sprinkle] 750 mg PO BID@0600,1630 12/23/16 [History] LORazepam [Ativan] 1.5 mg PO TID@0600,1000,1630 12/23/16 [History] Topiramate [Topamax] 30 mg PO BID@0600,1630 12/23/16 [History] Magnesium Hydroxide [Milk of Magnesia] 2,400 mg PO DAILY PRN 11/18/21 [History] diphenhydrAMINE ELIXIR [Benadryl Elixir] 25 mg PO Q6H PRN 11/18/21 [History] diphenhydrAMINE [Benadryl] 25 mg PO DIRECTED PRN 11/18/21 [History] guaiFENesin-DM 100-10MG/5ML [Robitussin DM] 10 ml PO Q4H PRN 11/18/21 [History] risperiDONE [RisperDAL] 0.25 mg PO DAILY@0600 11/18/21 [History] Cholecalciferol [Vitamin D3 (25 Mcg = 1000 Iu)] 25 mcg PO DAILY@0600 02/27/22 [History] Acetaminophen Oral Susp (Peds) [Tylenol Oral Susp For Peds (Grape)] 650 mg PO Q6HR PRN ml 03/17/22 [Rx] Ibuprofen Oral Susp [Motrin Oral Susp] 400 mg PO Q6HR PRN ml 03/17/22 [Rx] Follow up Appointment(s)/Referral(s): Iveth Ramirez MD [Primary Care Provider] - 1-2 days
--- NOTE | 2022-03-17 16:05 | P.PN ---
Progress Note - Text Progress Note Date: 03/17/22 Patient resting comfortably. Tube feeds were stopped. Patient was changed to comfort care measures. He is being transferred to outpatient hospice house today.
== END 2022-03-17 15:26 | disposition hospice, home (50) | DRG 177 ==
LOC: EC 07:57 → 3SCARD 09:55
PROVIDERS: ADMIT Internal Medicine; ATTEND Internal Medicine
PROC: 0DJ08ZZ Inspection of Upper Intestinal Tract, Via Natural or Artificial Opening Endoscopic (ICD-10-PCS; 2022-03-06 14:25)
PROC: 3E0H76Z Introduction of Nutritional Substance into Lower GI, Via Natural or Artificial Opening (ICD-10-PCS; 2022-03-07)
PROC: 0DHA4UZ Insertion of Feeding Device into Jejunum, Percutaneous Endoscopic Approach (ICD-10-PCS; principal; 2022-03-10 07:30)
PROC: 8E0W4CZ Robotic Assisted Procedure of Trunk Region, Percutaneous Endoscopic Approach (ICD-10-PCS; principal; 2022-03-10 07:30)
DX: J69.0 Pneumonitis due to inhalation of food and vomit (principal); J96.01 Acute respiratory failure with hypoxia; E44.0 Moderate protein-calorie malnutrition; M84.421A Pathological fracture, right humerus, initial encounter for fracture; J98.11 Atelectasis; G09 Sequelae of inflammatory diseases of central nervous system; G80.9 Cerebral palsy, unspecified; G40.909 Epilepsy, unspecified, not intractable, without status epilepticus; Z66 Do not resuscitate; Z51.5 Encounter for palliative care; Z20.822 Contact with and (suspected) exposure to COVID-19; E87.6 Hypokalemia; E83.42 Hypomagnesemia; M41.9 Scoliosis, unspecified; M62.422 Contracture of muscle, left upper arm; M62.421 Contracture of muscle, right upper arm; M62.562 Muscle wasting and atrophy, not elsewhere classified, left lower leg; M62.561 Muscle wasting and atrophy, not elsewhere classified, right lower leg; H54.7 Unspecified visual loss; F89 Unspecified disorder of psychological development; R41.89 Other symptoms and signs involving cognitive functions and awareness; Z53.8 Procedure and treatment not carried out for other reasons; Z79.899 Other long term (current) drug therapy; Z87.01 Personal history of pneumonia (recurrent); Z99.3 Dependence on wheelchair; Z87.39 Personal history of other diseases of the musculoskeletal system and connective tissue; Z86.19 Personal history of other infectious and parasitic diseases; Z98.890 Other specified postprocedural states; Z71.3 Dietary counseling and surveillance
CPT/HCPCS: 36410; 36415; 43235; 71045; 76937; 80048; 80053; 80164; 83540; 83550; 83605; 83735; 83880; 84100; 84145; 84484; 85025; 85610; 85730; 86140; 87040; 87502; 87635; 93005; 94640; 94760; 96365; 96366; 96367; 96372; 96375; 99285